=== PATIENT | female | born 1935 | race Caucasian/White ===

== ENCOUNTER → 2018-03-20 14:46 | Outpatient (CLI) | payer MEDICARE, SELFPAY ==
[2018-03-20 16:24] LABS: Absolute Lymphocyte Count 1.73 X10^3/ul (0.83-4.51); Absolute Neutrophil Count 5.5 X10^3/uL (2.0-7.7); Basophil# 0.02 X10^3/uL; Basophil% 0.2 % (0-1); Eosinophil# 0.23 X10^3/uL; Eosinophils% 2.8 % (0-5); Hematocrit 38.4 % (37-47); Lymphocyte # 1.73 X10^3/ul (4.0); Lymphocyte % 21.3 % (19-41); Mean Corp Hgb Conc 31.3 g/gl (32-36); Mean Corpuscular Hgb 29.3 pg (27.0-32.0); Mean Corpuscular Volume 93.7 fL (81-99); Mean Platelet Vol. 9.5 fl (6.2-12.0); Monocyte% 8.6 % (0-10); Neutrophil # 5.45 X10^3/uL (2.7-7.7); Platelet Count 311 K/mm3 (150-450); RBC Distribution Width SD 47.9 fl (35.1-43.9); White Blood Count 8.1 K/mm3 (4.4-11.0)
[2018-03-20 16:27] LABS: POSITIVE COUNT NO; POSITIVE DIFFERENTIAL NO; POSITIVE MORPHOLOGY NO
[2018-03-20 16:42] LABS: Erythrocyte Sedimentation Rate 32 mm/hr (0-30)
[2018-03-20 16:44] LABS: ALB/GLOB Ratio 0.9 RATIO (0.9-2.4); AST(SGOT) 13 U/L (15-37); Alanine Aminotransfer ALT/SGPT 15 U/L (13-56); Albumin, Serum 3.6 g/dL (3.2-5.0); Alkaline Phosphatase 92 U/L (45-117); Anion Gap 9 (5-15); BUN 17 mg/dL (7-18); BUN/Creat Ratio 19.9 RATIO (10-20); CRP 5.86 mg/L (0.0-3.0); Calcium,Total 9.6 mg/dL (8.5-10.1); Chloride 104 mmol/L (98-107); Creatinine, Serum 0.85 mg/dL (0.55-1.02); EST Glomerular Filtration Rate 68 mL/min (>60); Est Glom Filt Rate - Afr Amer 82 mL/min (>60); Globulin 4.2 g/dL (2.2-4.2); Glucose 86 mg/dL (74-106); Potassium 3.9 mmol/L (3.5-5.1); Protein, Total 7.8 g/dL (6.4-8.2); Rheumatoid Factor < 10.0 IU/mL (<15); Sodium Level 142 mmol/L (136-145)
[2018-03-24 16:55] LABS: CCP IgG Antibodies 5 units (0-19); HEPATITIS B SURFACE AG Negative (Negative); Hep B Surface Antibodies Non Reactive (.); Hep C Antibodies 0.1 s/co ratio (0.0-0.9)
[2018-03-25 16:45] LABS: ANTINUCLEAR ANTIBODIES DIRECT Negative (Negative)
--- OUTSIDE RECORDS SUMMARY | 2018-05-25 05:06 | XMS RPT_ITS ---
:1935 Author Organization OHIP Care Team Providers Name Role Phone YONNY MOROCHOANDA Jaye (SENIOR SYSTEMS ADMINISTRATOR) Referring Unavailable CORNIELLO, AYANNA L (SENIOR SYSTEMS ADMINISTRATOR) Attending Unavailable CORNIELLO, AYANNA L (SENIOR SYSTEMS ADMINISTRATOR) Referring Unavailable CORNIELLO, AYANNA L (SENIOR SYSTEMS ADMINISTRATOR) Referring Unavailable THORPELUBNA (ASSEMBLY ADJUSTER) Attending Unavailable THORPE, LUBNA (ASSEMBLY ADJUSTER) Referring Unavailable CORNIELLO, AYANNA L (SENIOR SYSTEMS ADMINISTRATOR) Referring Unavailable CORNIELLO, AYANNA L (SENIOR SYSTEMS ADMINISTRATOR) Attending Unavailable CORNIELLO, AYANNA L (SENIOR SYSTEMS ADMINISTRATOR) Referring Unavailable CORNIELLO, AYANNA L (SENIOR SYSTEMS ADMINISTRATOR) Referring Unavailable CORNIELLO, AYANNA L (SENIOR SYSTEMS ADMINISTRATOR) Referring Unavailable CORNIELLO, AYANNA L (SENIOR SYSTEMS ADMINISTRATOR) Referring Unavailable CORNIELLO, AYANNA L (SENIOR SYSTEMS ADMINISTRATOR) Referring Unavailable CORNIELLO, AYANNA L (SENIOR SYSTEMS ADMINISTRATOR) Referring Unavailable CORNIELLO, AYANNA L (SENIOR SYSTEMS ADMINISTRATOR) Attending Unavailable Vellankimmy, Samara Attending Unavailable Vellankimmy, Samara Referring Unavailable Corniello, Ayanna ASSEMBLY ADJUSTER-C Primary Care Unavailable PROBLEMS PROBLEMS DATE TYPE CONDITION / CODE ATTENDING STATUS SOURCE 03/20/2018 Unknown M06.4 - Inflammatory Vellanki, Active Brenda polyarthropathy / [facility] M06.4(ICD-10) Hospital Repository 03/20/2018 Unknown M15.9 - Vellanki, 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, [facility] unspecified / Hospital M15.9(ICD-10) Repository 03/20/2018 Unknown 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, 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 / Q66.7(ICD-10) [facility] Hospital Repository 03/20/2018 Unknown 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, 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 / Hospital D69.3(ICD-10) Repository 03/20/2018 Unknown M81.0 - Age-related Vellanki, Active [place] osteoporosis without [facility] current pathological Hospital fracture / Repository M81.0(ICD-10) 03/20/2018 Unknown H40.9 - Unspecified Vellanki, Active [place] glaucoma / [facility] H40.9(ICD-10) Hospital Repository 12/30/2017 Active Unspecified NA Active [facility] osteoarthritis, [facility] unspecified site / [facility] M19.90(ICD-10) Repository 12/24/2017 Active Encounter for NA Active [facility] screening mammogram [facility] for malignant neoplasm [facility] of breast / Repository Z12.31(ICD-10) 12/11/2017 Active Other specified NA Active [facility] disorders of bone [facility] density and structure, [facility] unspecified site / Repository M85.80(ICD-10) 12/11/2017 Active Unspecified abnormal NA Active [facility] finding in specimens [facility] from other organs, [place] systems and tissues / Repository R89.9(ICD-10) 12/09/2017 Active Myalgia, unspecified NA Active [facility] site / M79.10(ICD-10) [facility] Repository 12/14/2014 Active Hyperlipidemia, NA Active [facility] unspecified / [facility] E78.5(ICD-10) [facility] Rep[facility] 06/10/2013 Active Immune NA Active [facility] thrombocytopenic [facility] purpura / [facility] D69.3(ICD-10) Repository 06/04/2017 Active Diarrhea, unspecified NA Active [facility] / R19.7(ICD-10) [facility] Repository 05/30/2017 Active Pure NA Active [facility] hypercholesterolemia, [facility] unspecified / [facility] E78.00(ICD-10) Repository 05/30/2017 Active Other nursing home NA Active [facility] (current) drug therapy [facility] / Z79.899(ICD-10) [facility] Repository PROCEDURES PROCEDURES No Procedure Records FoundRESULTS RESULTS CBC W/DIFF, AUTOMATED Collected: 03/20/2018 Status: F Source: [place] 2:56 PM [facility], [facility] HOSPITAL REPOSITORY TYPE CODE TESTS RESULT OUT OF RANGE REFERENCE UNITS LAB L100.1000 4.4-11.0 K/mm3 Normal WBC 8.1 LAB L100.1200 4.2-5.4 M/mm3 Low RBC 4.10 LAB L100.1300 12.0-15.0 g/dl Normal HGB 12.0 LAB L100.1400 37-47 % Normal HCT 38.4 LAB L100.1500 81-99 fL Normal MCV 93.7 LAB L100.1600 27.0-32.0 pg Normal MCH 29.3 LAB L100.1700 32-36 g/gl Low MCHC 31.3 LAB L100.1810 11.6-14.6 % Normal RDW CV 14.0 LAB L100.1820 35.1-43.9 fl High RDW SD 47.9 LAB L100.1900 150-450 K/mm3 Normal PLT 311 LAB L100.2000 6.2-12.0 fl Normal MPV 9.5 LAB L100.2100 47-70 % Normal NEUT% 67.0 LAB L100.2200 19-41 % Normal LY% 21.3 LAB L100.2300 0-10 % Normal MONO% 8.6 LAB L100.2400 0-5 % Normal EO% 2.8 LAB L100.2500 0-1 % Normal BASO% 0.2 LAB L100.2550 0.0-0.9 % Normal IM GRAN % 0.100 Result Comment: IG% - Immature Granulocytes (promyelocytes, myelocytes and metamyelocytes) > 1% indicates that a LEFT SHIFT is Present. LAB L100.2620 2.0-7.7 X10 3/uL Normal Absolute Neut 5.5 LAB L100.2720 0.83-4.51 X10 3/ul Normal Absolute Lymph 1.73 Performed By: #### L100.0100, L101.9900 #### [facility] [address] [place], [place], [id number] ERYTHROCYTE SED RATE Collected: 03/20/2018 Status: F Source: [place] 2:56 PM [facility] REPOSITORY TYPE CODE TESTS RESULT OUT OF RANGE REFERENCE UNITS LAB L102.0000 0-30 mm/hr High SED RATE 32 Performed By: #### L100.0100, L101.9900 #### [facility] [address] [place], [place], [address] COMPREHENSIVE METABOLIC Collected: 03/20/2018 Status: F Source: [place] 2:56 PM [facility] REPOSITORY TYPE CODE TESTS RESULT OUT OF RANGE REFERENCE UNITS LAB L501.0100 74-106 mg/dL Normal GLU 86 Result Comment: Please note revised GLUCOSE reference range effective 2017. LAB L501.1000 7-18 mg/dL Normal BUN 17 LAB L501.1100 0.55-1.02 mg/dL Normal CREAT,SERUM 0.85 Result Comment: The validity of the calculated GFR AND GFRAA in patients over 70 years has not been determined. Clinical correlation is essential. LAB L501.1110 >60 mL/min Normal EST GFR 68 Result Comment: Non- GFR Calc LAB L501.1115 >60 mL/min Normal EST GFR - AA 82 Result Comment: GFR Calc LAB L501.1300 10-20 RATIO Normal BUN/CRE 19.9 LAB L501.1500 6.4-8.2 g/dL T Normal PROT 7.8 LAB L501.1800 3.2-5.0 g/dL Normal ALB 3.6 LAB L501.1950 2.2-4.2 g/dL Normal GLOB 4.2 LAB L501.2000 0.9-2.4 RATIO Normal A/G 0.9 LAB L501.2200 8.5-10.1 mg/dL CA Normal 9.6 LAB L501.4100 15-37 U/L Low AST 13 LAB L501.4305 45-117 U/L Normal ALK P 92 LAB L501.4405 13-56 U/L Normal ALT 15 LAB L501.4600 0.20-1.00 mg/dL T Normal BILI 0.50 LAB L501.5300 136-145 mmol/L NA Normal 142 LAB L501.5600 3.5-5.1 mmol/L K Normal 3.9 LAB L501.5900 98-107 mmol/L CL Normal 104 LAB L501.6100 21.0-32.0 mmol/L Normal CO2 29.0 LAB L501.6200 5-15 Normal GAP 9 Performed By: #### L500.4050, L501.6710, L505.7010 #### [facility] [place], [address] CRP Collected: 03/20/2018 Status: F Source: [place] 2:56 PM [facility] REPOSITORY TYPE CODE TESTS RESULT OUT OF RANGE REFERENCE UNITS LAB L501.6710 0.0-3.0 mg/L High 5.86 C-REACTIVE PROT Result Comment: C-Reactive Protein (CRP) provides useful information for the diagnosis, therapy and monitoring of inflammatory processes and associated diseases. For the evaluation of Relative Risk for Cardiovascular Disease, a High Sensitivity CRP (HSCRP) should be ordered. Performed By: #### L500.4050, L501.6710, L505.7010 #### [facility] [address] [facility] [place], [place], [address] RHEUMATOID FACTOR Collected: 03/20/2018 Status: F Source: [place] 2:56 PM [facility] REPOSITORY TYPE CODE TESTS RESULT OUT OF RANGE REFERENCE UNITS LAB L505.7010 <15 IU/mL Normal RHEUMATOID FAC < 10.0 Performed By: #### L500.4050, L501.6710, L505.7010 #### [facility]. [facility] [id number] HEPATITIS B SURFACE Collected: 03/20/2018 Status: F Source: [place] 2:56 PM [facility] REPOSITORY TYPE CODE TESTS RESULT OUT OF RANGE REFERENCE UNITS LAB L3100.0400 Negative Normal HB Negative SURF AG Result Comment: Performed at: [facility] [id number] Woodenware Assembler: Elder Kang PhD, Phone: [phone] Performed at: [facility] [id number] Woodenware Assembler: Tanya Malhotra MD, Phone: [phone] Performed By: #### L3100.0390, L3100.0528, L3100.0625, L4600.0100 #### [facility] (refer to report for specific site) refer to report for address and phone number HEP B SURFACE Collected: 03/20/2018 Status: F Source: [place] 2:56 PM [facility] REPOSITORY TYPE CODE TESTS RESULT OUT OF RANGE REFERENCE UNITS LAB L3100.0528 . Normal Hep B Non Reactive Yassine AB Result Comment: Non Reactive: Inconsistent with immunity, less than 10 mIU/mL Reactive: Consistent with immunity, greater than 9.9 mIU/mL Performed By: #### L3100.0390, L3100.0528, L3100.0625, L4600.0100 #### [facility] (refer to report for specific site) refer to report for address and phone number HEPATITIS C ANTIBODIES Collected: 03/20/2018 Status: F Source: [place] 2:56 PM [facility] REPOSITORY TYPE CODE TESTS RESULT OUT OF RANGE REFERENCE UNITS LAB L3100.0650 0.0-0.9 s/co ratio Normal HEP C AB 0.1 Result Comment: Negative: < 0.8 Indeterminate: 0.8 - 0.9 Positive: > 0.9 The CDC recommends that a positive HCV antibody result be followed up with a HCV Nucleic Acid Amplification test (628691). Performed By: #### L3100.0390, L3100.0528, L3100.0625, L4600.0100 #### [facility] (refer to report for specific site) refer to report for address and phone number CCP IGG ANTIBODIES Collected: 03/20/2018 Status: F Source: [place] 2:56 PM [facility] REPOSITORY TYPE CODE TESTS RESULT OUT OF RANGE REFERENCE UNITS LAB L4600.0100 0-19 units Normal ANTI-CCP 5 [id number] Result Comment: Negative <20 Weak positive 20 - 39 Moderate positive 40 - 59 Strong positive >59 Performed By: #### L3100.0390, L3100.0528, L3100.0625, L4600.0100 #### [facility] (refer to report for specific site) refer to report for address and phone number ANTINUCLEAR ANTIBODIES Collected: 03/20/2018 Status: F Source: [place] DIRECT 2:56 PM [facility] REPOSITORY TYPE CODE TESTS RESULT OUT OF RANGE REFERENCE UNITS LAB L3100.5475 Negative Normal Negative WON-DIRECT Result Comment: Performed at: - [facility] [id number] Woodenware Assembler: Elder Kang PhD, Phone: [phone] Performed By: #### L3100.5475 #### [facility] (refer to report for specific site) refer to report for address and phone number PROGRESS Observed: 02/09/2018 Status: COMPLETED Source: [place] 3:47 PM [facility] REPOSITORY HNO ID: [id number] Author: Ayanna Cabral) Bailee Service: (none) Author Type: Nurse Practitioner Type: Progress Notes Filed: 02/09/2018 4:25 PM Note Text: HPI/CC: Guicho Mohamud Nella is a 82 year old female who presents for follow up to review medications. Mobic not helpful. Still with muscle and joint pains. Pain is mostly UE. Stiff in the mornings but relaxes with warm water. Had to stop silver sneakers d/t pain. Seeing chiropractor for OMT with intermediate relief. Also using biofreeze which is helpful. ROS as above, otherwise non-contributory. Reviewed PMHx, PSHx, social Hx, medications and allergies. PHYSICAL EXAMINATION: BP 126/60 Pulse 92 Resp 16 Wt 50.8 kg (112 lb) BMI 18.35 kg/m? General appearance: Well appearing, alert, in no acute distress, well-hydrated, well nourished. Skin: Skin color, texture, turgor normal, no suspicious rashes or lesions ASSESSMENT/PLAN: 1. Myalgia - ICD9: 729.1, ICD10: M79.10 (primary diagnosis) 2. Arthralgia, unspecified joint - ICD9: 719.40, ICD10: M25.50 - CONSULT TO RHEUM/IMMUN DISEASE - COMP METABOLIC PANEL - LIPID PANEL BASIC - CBC + DIFF 3. Hyperlipidemia, unspecified hyperlipidemia type - ICD9: 272.4, ICD10: E78.5 - good control - Continue current therapy. Off statin for now - LIPID PANEL BASIC - f/u in 4 months with fasting labs prior Ayanna Morocho APRN.NANDA DANIEL Observed: 02/09/2018 Status: COMPLETED Source: [place] 3:40 PM [facility] REPOSITORY Office Visit (FAMPWS) GUICHO CARMEN ([id number]) 1935 F CHT Date Time Provider Department 02/09/18 3:40 PM AYANNA MOROCHO ([place]NDA) JOSE A During your visit today, we recorded the following information about you: Pulse Respiration Blood pressure Weight 92/minute 16/minute 126/60 50.8 kg Ayanna Morocho APRN.CNP 02/09/2018 4:25 PM Signed HPI/CC: Guicho Carmen is a 82 year old female who presents for follow up to review medications. Mobic not helpful. Still with muscle and joint pains. Pain is mostly UE. Stiff in the mornings but relaxes with warm water. Had to stop silver sneakers d/t pain. Seeing chiropractor for OMT with intermediate relief. Also using biofreeze which is helpful. ROS as above, otherwise non-contributory. Reviewed PMHx, PSHx, social Hx, medications and allergies. PHYSICAL EXAMINATION: BP 126/60 Pulse 92 Resp 16 Wt 50.8 kg (112 lb) BMI 18.35 kg/m? General appearance: Well appearing, alert, in no acute distress, well-hydrated, well nourished. Skin: Skin color, texture, turgor normal, no suspicious rashes or lesions ASSESSMENT/PLAN: 1. Myalgia - ICD9: 729.1, ICD10: M79.10 (primary diagnosis) 2. Arthralgia, unspecified joint - ICD9: 719.40, ICD10: M25.50 - CONSULT TO RHEUM/IMMUN DISEASE - COMP METABOLIC PANEL - LIPID PANEL BASIC - CBC + DIFF 3. Hyperlipidemia, unspecified hyperlipidemia type - ICD9: 272.4, ICD10: E78.5 - good control - Continue current therapy. Off statin for now - LIPID PANEL BASIC - f/u in 4 months with fasting labs prior Ayanna Morocho APRN.CNP Referring Provider: SELF [200] Allergies As of Date: 02/09/2018 Noted Allergy Reaction ASA (SALICYLATES) 01/08/2005 14 - Other: See Comments Comments: Hx of low plateletes IBUPROFEN 01/08/2005 4 - Hives PENICILLINS 01/08/2005 Comments: passed out Date Reviewed: 12/09/2017 Reviewed by: Simone Trevino LPN - Fully Assessed Reason for Visit: Recheck [92] Cmt: follow up to review medications Primary Visit Diagnosis:Myalgia [M79.10] Other Visit Diagnoses:Arthralgia, unspecified joint [M25.50] Hyperlipidemia, unspecified hyperlipidemia type [E78.5] Order(s):CONSULT TO RHEUM/IMMUN DISEASE [9039] Order #: [id number]: 1 COMP METABOLIC PANEL [SQCMP] Order #: [id number] FUTURE LIPID PANEL BASIC [SQLIPB] Order #: [id number] FUTURE CBC + DIFF [SQCBCDIF] Order #: [id number] FUTURE Prescriptions as of 02/09/2018 Sig: MELOXICAM 7.5 MG TABLET Take 2 tablets by mouth once * ALENDRONATE 35 MG TABLET Take 1 tablet by mouth once e* FLUTICASONE 50 MCG/ACTUATION * Use 2 Sprays in each nostril * LORATADINE 10 MG TABLET Take 1 tablet by mouth once d* MAGNESIUM 200 MG TABLET Take 1 tablet by mouth once d* CALCIUM CARB-ERGOCALCIFEROL (* Take 1 tablet by mouth once d* LUMIGAN 0.03 % EYE DROPS one drop each eye nightly THERAPEUTIC MULTIVITAMIN TABL* Take one(1) tablet daily. 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] INT HEMORRHOID W/O COMPL [K64.8] DYSMETABOLIC SYNDROME X [E88.81] INVALID FOR* Seborrheic Keratosis [L82.1] INVALID FOR* Surgical Scar of Skin of Nose from Moh's Surger*INVALID FOR* H/O BCC: Desmoplastic Trichoepithelioma type: n*INVALID FOR* Actinic Damage///Sun-Damaged Skin [L57.8] INVALID FOR* Solar Lentigo [L81.4] INVALID FOR* Amaral Angioma///Capillary Angioma [I78.1] INVALID FOR* Telangiectasia [I78.1] INVALID FOR* Rosacea [L71.9] INVALID FOR* Actinic Keratosis (Premalignant AK) [L57.0] INVALID FOR* Irritated//Inflamed Seborrheic Keratosis [L82.0]INVALID FOR* Sebaceous hyperplasia [L73.8] INVALID FOR* Actinic skin damage [L57.8] INVALID FOR* Postinflammatory skin changes [R23.4] INVALID FOR* Milial cysts [L72.0] INVALID FOR* Solar elastosis [L57.8] INVALID FOR* Sebaceous hyperplasia of face [L73.8] INVALID FOR* ITP (idiopathic thrombocytopenic purpura) [D69.* 06/10/2013 More... 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 Lactose intolerance [E73.9] INVALID FOR* Medications Discontinued During This Encounter simvastatin (ZOCOR) 20 mg tablet 90 t* 3 03/05/2017 02/09/2018 Route: ORAL Sig: Take 0.5-1 tablets by mouth once daily. as directed based on labs Disc: Reason for discontinue is not on file. Encounter Status:Closed by AYANNA MOROCHO CNP on 02/09/18 CBC AND DIFFERENTIAL Collected: 12/30/2017 Status: F Source: [place] 2:11 PM [facility] REPOS[facility] TYPE CODE TESTS RESULT OUT OF REFERENCE UNITS RANGE LAB WBC 3.70-11.00 k/uL WBC 9.33 LAB RBC 3.90-5.20 m/uL RBC 4.13 LAB HGB 11.5-15.5 g/dL Hemoglobin 12.5 LAB HCT 36.0-46.0 % Hematocrit 39.9 LAB MCV 80.0-100.0 fL MCV 96.6 LAB MCH 26.0-34.0 pG MCH 30.3 LAB MCHC 30.5-36.0 g/dL MCHC 31.3 LAB RDWCV 11.5-15.0 % RDW-CV 12.5 LAB PLTCT 150-400 k/uL Platelet Count 337 LAB MPV 9.0-12.7 fL MPV 9.8 LAB ANEUT % Neut% 75.4 LAB AANEUT 1.45-7.50 k/uL Abs Neut 7.04 LAB ALYMP % Lymph% 15.0 LAB AALYMP 1.00-4.00 k/uL Abs Lymph 1.40 LAB AMONO % Isabella% 8.3 LAB AAMONO <0.87 k/uL Abs Isabella 0.77 LAB AEOS % Eosin% 1.0 LAB AAEOS <0.46 k/uL Abs Eosin 0.09 LAB ABASO % Baso% 0.3 LAB AABASO <0.11 k/uL Abs Baso 0.03 LAB AUNRBC 0 /100 WBC NRBCs 0.0 LAB ABNRBC <0.01 k/uL Absolute nRBC <0.01 LAB DTYP DTYPE Auto Diff Performed By: #### CBCDIF #### [facility] [address] [place], [place] [address] CNCO Observed: 12/24/2017 Status: COMPLETED Source: [place] 1:36 PM [facility] REPOSITORY HNO ID: [id number] Author: Mammography Coordinator Service: (none) Author Type: Physician Type: Letter Filed: 12/25/2017 11:32 PM Note Text: December 24, 2017 PID: [id number] Guicho Carmen [address] [place] [address] Dear Ms. Carmen, We are pleased to inform you that the results of your recent breast imaging exam on 12/24/2017 are normal. Early detection of cancer is very important. We also understand recommendations regarding breast cancer screening are controversial. Please discuss with your primary care provider which strategy is best for you and whether a mammogram is right for you. Your imaging studies and report will be kept on file at [facility] as part of your permanent medical record and are available for your continuing care. Thank you for allowing us to help in meeting your health care needs. Sincerely, Dr. Cristina Interpreting Radiologist [facility] (Normal over 40) [facility] SCREENING Observed: 12/24/2017 Status: F Source: [place] 12:00 PM [facility] REPOSITORY * * *Final Report* * * DATE OF EXAM: Dec 24 2017 12:00PM WO [id number] - [facility] SCREENING / PROCEDURE REASON: Encounter for screening mammogram for breast cancer * * * * Physician Interpretation * * * * RESULT: #[id number] - [facility] SCREENING BILATERAL DIGITAL SCREENING MAMMOGRAM WITH CAD: 12/24/2017 HISTORY: Encounter For Screening Mammogram For Breast Cancer /patient reports NO breast symptoms /priors available for comparison. RESULT: TECHNIQUE: The study was acquired using full field digital technology and interpreted from soft copy. Current study was also evaluated with a Computer Aided Detection (CAD). Comparison is made to exams dated: 09/11/2016 mammogram, 07/03/2015 mammogram, 06/23/2012 mammogram, 06/24/2013 mammogram, and 06/30/2014 mammogram - [facility]. There are scattered fibroglandular elements in both breasts. No significant masses, calcifications, or other findings are seen in either breast. There has been no significant interval change. IMPRESSION: NEGATIVE There is no mammographic evidence of malignancy. A 1 year screening mammogram is recommended. Steve Cristina M.D. pt/heather:12/24/2017 13:36:31 Drug Safety Associate: Kiki RAINES)(Karli), [facility] letter sent: Normal over 40 Mammogram BI-RADS: 1 Negative Multiple national specialty organizations have released breast cancer screening guidelines for women at average risk for developing breast cancer - guidelines that are based on both evidence and opinion, yet differ on when to start and how often to screen for breast cancer. With representation from Breast Imaging, Internal Medicine, Women's Health, Family Medicine, and Medical/Surgical Oncology, the [facility] has carefully reviewed the data and reached the following consensus: 1) All women should engage in shared decision-making with their providers to decide when to start and how often to screen; 2) All women should have the opportunity to start screening mammography at age 40; 3) For women ages 45-55, we recommend annual screening mammograms; 4) For women ages 55 and over, we support both the transition from an annual to a biennial interval if this aligns more with patient's values and preferences, or continuation with annual screening; 5) All women should discuss with their providers when to stop screening mammograms. Travel Coordinator: Heather Transcribe Date/Time: Dec 24 2017 11:32A Dictated by: STEVE CRISTINA MD This examination was interpreted and the report reviewed and electronically signed by: STEVE CRISTINA MD on Dec 24 2017 1:36PM EST [id number] Observed: 12/24/2017 Status: COMPLETED Source: [place] 11:32 AM [facility] REPOSITORY HNO ID: [id number] Author: Lubna Luna Service: (none) Author Type: (none) Type: Progress Notes Filed: 12/24/2017 12:04 PM Note Text: Radiology Service Progress Note PATIENT NAME: Guicho Carmen DATE OF SERVICE: December 24, 2017 TIME: 11:32 AM PATIENT IDENTITY VERIFICATION COMPLETED USING TWO (2) METHODS: Patient confirmed name verbally and Date of . PATIENT GENDER DATA: Female. status: : No status: NO. PATIENT RELEVANT IMPLANT DATA REVIEWED: Not Applicable RADIOLOGY DEPARTMENT: Women's Health melody scr mammogram PERIPHERAL IV DATA: Not applicable SIGNED BY: Lubna Luna December 24, 2017 11:32 AM BD DXA - AXIAL Observed: 12/15/2017 Status: F Source: [place] 2:48 PM [facility] REPOSITORY * * *Final Report* * * DATE OF EXAM: Dec 15 2017 2:48PM WR [id number] - BD DXA - AXIAL SKELETON / PROCEDURE REASON: Osteopenia, unspecified location * * * * Physician Interpretation * * * * PROCEDURE: BD DXA - AXIAL SKELETON INDICATION: Osteopenia, unspecified location TECHNIQUE: Low dose AP spine and hip images COMPARISON: LUMBAR SPINE: The bone mineral density from L1 through L4 is 0.798 grams per square centimeter which yields a T-score of -2.3. . LEFT HIP: The bone mineral density of the total region of the hip is 0.647 grams per square centimeter which yields a T-score of -2.4. . LEFT FEMORAL NECK: The bone mineral density of the femoral neck is 0.43 grams per square centimeter which yields a T-score of -3.3. . RIGHT HIP: The bone mineral density of the total region of the hip is 0.690 grams per square centimeter which yields a T-score of -2.1. . RIGHT FEMORAL NECK: The bone mineral density of the femoral neck is 0.521 grams per square centimeter which yields a T-score of -3.0. . 10-year Fracture Risk (FRAX): Major osteoporotic fracture risk 22% Hip fracture risk 9.8% IMPRESSION: Osteoporosis in both hips and severe osteopenia in the lumbar spine. [facility]. CLASSIFICATION OF BONE MASS CLASSIFICATION T-SCORE Normal Greater than -1 Low Bone Mass Between -1 and -2.5 (Osteopenia) Osteoporosis Less than or equal to -2.5 Travel Coordinator: MATT Transcribe Date/Time: Dec 15 2017 3:26P Dictated by : DONAVAN LI MD This examination was interpreted and the report reviewed and electronically signed by: DONAVAN LI MD on Dec 15 2017 3:27PM EST [id number] Observed: 12/15/2017 Status: COMPLETED Source: [place] 2:25 PM [facility] REPOSITORY HNO ID: [id number] Author: Marilia Lion Rt Service: (none) Author Type: (none) Type: Progress Notes Filed: 12/15/2017 2:48 PM Note Text: Guicho Carmen December 15, 2017 [id number] Double identification: Patient identified by name and Bone Density Completed. Marilia Lion Rt patient told of radiation jk 2:30pm not CNPN Observed: 12/15/2017 Status: COMPLETED Source: [place] 12:00 AM [facility] REPOSITORY Telephone (FAMWS) GUICHO CARMEN ([id number]) 1935 F [facility] Date Time Provider Department 12/15/17 AYANNA MOROCHO ([facility]) [facility] During your visit today, we recorded the following information about you: Ayanna Morocho APRN.CNP 12/15/2017 3:47 PM Signed Labs show increased inflammatory markers. I recommend rechecking this in 3-4 months to re check this. Her bone density shows Osteoporosis in both hips and severe osteopenia in the lumbar spine. This significantly increases her risk of fracture. I recommend starting on a medication to help bone health such as a bisphosphonate. KRZYSZTOF Murry LPN 12/15/2017 4:02 PM Signed TC to pt, notified of provider instructions. She is checking with insurance to see what medication will be covered. Simone Trevino LPN Daniela Harpmary DENNIS 12/15/2017 4:19 PM Signed Patient calling back and her insurance will cover medication depends on which type brand name is 40 dollars and generic is 10 dollars? Patient uses [facility] for pharmacy, and would like to know which does Ayanna prefer her to go on? Please advise Letitia Lopez RN, RN 12/16/2017 11:47 AM Signed [facility] calls, stating pt is there to pear picker medication but nothing has been sent. Pt does not know name of medication. Please see below. Anabel Fierro RN 12/16/2017 12:10 PM Signed Patient thinks that generic fosamax is covered and asking for Rx sent for this to [facility]? She is also asking what she can take for her arthritis pain, she currently takes a lot of Tylenol and this is not relieving her pain. Please send arthritis pain medication Rx and notify patient when Rx sent. Please review and advise. HERB Lew APRN.SENIOR SYSTEMS ADMINISTRATOR 12/16/2017 2:58 PM Signed Fosamax ordered, please fax. recomeend I suggest 1200-1500mg of Calcium carbonate into 2 doses daily as well as 1000 units of Vitamin D3 daily. Weight bearing exercise, if not already doing, and f/u exam in 2 years for bone density. Simone Trevino LPN 12/16/2017 3:34 PM Signed Do you recommend anything in addition to Tylenol for pt c/o arthritis pain? Simone Morocho APRN.SENIOR SYSTEMS ADMINISTRATOR 12/16/2017 3:47 PM Signed She is allergic to ibuprofen. Has she ever tolerated Naproxen or Mobic? Simone Trevino LPN 12/16/2017 3:57 PM Signed TC to pt, notified of provider instructions. She has Oscal 500mg at home that she will use. She also states she is unable to take Ibuprofen because she can not have anything with ASA d/t it knocked my platelets down so they told me not to take anything with ASA in it so she is unsure if she has tried naproxen or mobic. She is also asking if she should restart her cholesterol medication? Simone Morocho APRN.CNP 12/17/2017 12:11 PM Signed Recommend a trial of low dose Mobic and recheck CBC in 2-3 weeks. Ayanna Morocho APRN.NANDA Lazaroley Magda 12/17/2017 3:11 PM Signed Patient notified of results, verbalizes understanding of instructions. Britany Man Allergies As of Date: 12/15/2017 Noted Allergy Reaction ASA (SALICYLATES) 01/08/2005 14 - Other: See Comments Comments: Hx of low plateletes IBUPROFEN 01/08/2005 4 - Hives PENICILLINS 01/08/2005 Comments: passed out Date Reviewed: 12/09/2017 Reviewed by: Simone Trevino LPN - Fully Assessed Reason for Visit: Medication Request [138] Results [95] Primary Visit Diagnosis:Osteoporosis, unspecified osteoporosis type, unspecified pathological fracture presence [M81.0] Other Visit Diagnoses:Arthritis [M19.90] Chronic ITP (idiopathic thrombocytopenia) ([facility]) [D69.3] Order(s):alendronate (FOSAMAX) 35 mg tabletTake 1 tablet by mouth once each week. Take on an empty stomach first thing in the morning with at least 8 oz of water. After taking do not have food, drink, medications, or supplements for at least one half- hourDisp: 51 tabletRfl: 0 CBC + DIFF [SQCBCDIF] Order #: [id number] FUTURE meloxicam (MOBIC) 7.5 mg tabletTake 1 tablet by mouth once daily. for pain. Take with food.Disp: 30 tabletRfl: 1 Prescriptions as of 12/15/2017 Sig: MELOXICAM 7.5 MG TABLET Take 1 tablet by mouth once d* ALENDRONATE 35 MG TABLET Take 1 tablet by mouth once e* FLUTICASONE 50 MCG/ACTUATION * Use 2 Sprays in each nostril * LORATADINE 10 MG TABLET Take 1 tablet by mouth once d* SIMVASTATIN 20 MG TABLET Take 0.5-1 tablets by mouth o* MAGNESIUM 200 MG TABLET Take 1 tablet by mouth once d* CALCIUM CARB-ERGOCALCIFEROL (* Take 1 tablet by mouth once d* LUMIGAN 0.03 % EYE DROPS one drop each eye nightly THERAPEUTIC MULTIVITAMIN TABL* Take one(1) tablet daily. Problem List As Of Date 12/15/2017 Noted Resolved GLAUCOMA NOS [H40.9] Hyperlipidemia [E78.5] FAMILY HX GI MALIGNANCY [Z80.0] INVALID FOR* BENIGN NEOPLASM LG BOWEL [D12.6] DIVERTICULOSIS OF COLON W/O BLEED [K57.30] INT HEMORRHOID W/O COMPL [K64.8] DYSMETABOLIC SYNDROME X [E88.81] INVALID FOR* Seborrheic Keratosis [L82.1] INVALID FOR* Surgical Scar of Skin of Nose from Moh's Surger*INVALID FOR* H/O BCC: Desmoplastic Trichoepithelioma type: n*INVALID FOR* Actinic Damage///Sun-Damaged Skin [L57.8] INVALID FOR* Solar Lentigo [L81.4] INVALID FOR* Amaral Angioma///Capillary Angioma [I78.1] INVALID FOR* Telangiectasia [I78.1] INVALID FOR* Rosacea [L71.9] INVALID FOR* Actinic Keratosis (Premalignant AK) [L57.0] INVALID FOR* Irritated//Inflamed Seborrheic Keratosis [L82.0]INVALID FOR* Sebaceous hyperplasia [L73.8] INVALID FOR* Actinic skin damage [L57.8] INVALID FOR* Postinflammatory skin changes [R23.4] INVALID FOR* Milial cysts [L72.0] INVALID FOR* Solar elastosis [L57.8] INVALID FOR* Sebaceous hyperplasia of face [L73.8] INVALID FOR* ITP (idiopathic thrombocytopenic purpura) [D69.* 06/10/2013 More... 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 Lactose intolerance [E73.9] INVALID FOR* Prescriptions ordered this encounter Disp Refills Start End ALENDRONATE 35 MG TABLET 51 t* 0 12/16/2017 12/16/2018 Class: Print RX Route: ORAL Sig: Take 1 tablet by mouth once each week. Take on an empty stomach first thing in the morning with at least 8 oz of water. After taking do not have food, drink, medications, or supplements for at least one half-hour MELOXICAM 7.5 MG TABLET 30 t* 1 12/17/2017 Route: ORAL Sig: Take 1 tablet by mouth once daily. for pain. Take with food. Encounter Status:Closed by BRITANY MAN on 12/17/17 C-REACTIVE PROTEIN Collected: 12/11/2017 Status: F Source: [place] 11:53 AM [facility] REPOSITORY TYPE CODE TESTS RESULT OUT OF REFERENCE UNITS RANGE LAB CRP <0.9 mg/dL High C-Reactive 1.9 Protein Performed By: #### CRP, RF, WSR, VITD, ANAIFS, CCP #### [facility] [address] [address] RHEUMATOID FACTOR Collected: 12/11/2017 Status: F Source: [place] 11:53 AM [facility] REPOSITORY TYPE CODE TESTS RESULT OUT OF REFERENCE UNITS RANGE LAB RF <16 IU/mL Rheumatoid <10 Factor Performed By: #### CRP, RF, WSR, VITD, ANAIFS, CCP #### [facility] [address] [place] [address] SED RATE WESTERGREN Collected: 12/11/2017 Status: F Source: [place] 11:53 AM [facility] REPOSITORY TYPE CODE TESTS RESULT OUT OF REFERENCE UNITS RANGE LAB WSR 0-20 mm/hr Sed Rate High Westergren 38 Performed By: #### CRP, RF, WSR, VITD, ANAIFS, CCP #### [facility] [address] [address] VITAMIN D 25 HYDROXY Collected: 12/11/2017 Status: F Source: [place] 11:53 AM [facility] REPOSITORY TYPE CODE TESTS RESULT OUT OF REFERENCE UNITS RANGE LAB VITD 31.0-80.0 ng/mL Vitamin D 25 39.3 Hydroxy Result Comment: Classification of 25 [place] Vitamin D status: Insufficiency/Moderate Deficiency: < or = 30 ng/mL Sufficiency/Optimal Levels: 31 to 80 ng/mL Toxicity: > 100 ng/mL Test performed by chemiluminescent immunoassay. Performed By: #### CRP, RF, WSR, VITD, ANAIFS, CCP #### [facility] [address] [place], [place] [address] WON BY IFA Collected: 12/11/2017 Status: F Source: [place] 11:53 [facility] REPOSITORY TYPE CODE TESTS RESULT OUT OF REFERENCE UNITS RANGE LAB ANASC Negative WON Negative Result Comment: Normal range : negative at <1:80 serum dilution. Approximately 6% of patients with connective tissue diseases with low positive EIA values are negative by IFA. Recommend follow-up with specific antinuclear antibodies if clinically indicated. LAB PRISCA Negative Negative WON Titer Result Comment: Normal range : negative at <1:80 serum dilution. LAB ANAP WON Not applicable Pattern for negative result. Performed By: #### CRP, RF, WSR, VITD, ANAIFS, CCP #### [facility] [address] [place], [place] [address] CCP ANTIBODY, IGG Collected: 12/11/2017 Status: F Source: [place] 11:53 [facility] TYPE CODE TESTS RESULT OUT OF REFERENCE UNITS RANGE LAB CCPABG <20 Units CCP <15 Antibody, IgG Result Comment: < 20 units: Negative 20-39 units: Weak Positive 40-59 units: Moderate Positive > 60 units: Strong Positive The following results were obtained with the [employer] QU[employer]A Lite CCP3 IgG ROGER. Anti-CCP values obtained with different manufacturers' assay methods may not be used interchangeably. The magnitude of the reported IgG levels cannot be correlated to an endpoint titer. Performed By: #### CRP, RF, WSR, VITD, ANAIFS, CCP #### [facility] [address] [place], [place] [address] PROGRESS Observed: 12/09/2017 Status: COMPLETED Source: [place] 11:27 AM [facility] REPOSITORY HNO ID: [id number] Author: Ayanna Cee (Nanda) Bailee Service: (none) Author Type: Nurse Practitioner Type: Progress Notes Filed: 12/09/2017 11:43 AM Note Text: HPI/CC: Guicho Carmen is a 82 year old female who presents for Recheck (6 month follow up). Concerned regarding bilateral UE discomfort especially with extention. Reports extremities feel weak and stiff. Unable to move around like she used to. Left hand is swollen x 1 week, decreased grasp L>R. Denies injury/trauma, fever, chills, new exercises/activities, CP, SOB, dizziness, lightheadedness, numbness or tingling, recent falls, unsteady gait, difficulty talking. Eating and drinking well. ROS as above, otherwise non-contributory. Reviewed PMHx, PSHx, social Hx, medications and allergies. PHYSICAL EXAMINATION: BP 124/64 Pulse 88 Resp 16 Wt 52.2 kg (115 lb) BMI 18.85 kg/m? General appearance: Well appearing, alert, in no acute distress, well-hydrated, well nourished. and Thin Skin: Skin color, texture, turgor normal, no suspicious rashes or lesions Lungs: Lungs clear to auscultation. No wheezing, rhonchi, rales Heart: RRR without murmur, gallop, or rubs. No ectopy Extremities: No deformities, , skin discoloration, clubbing or cyanosis. Good capillary refill. , Edema: Left hand swelling Musculoskeletal: No joint swelling, deformity, or tenderness Peripheral pulses: Normal Neuro: Gait normal. Sensation grossly intact. ASSESSMENT/PLAN: 1. Myalgia - ICD9: 729.1, ICD10: M79.10 (primary diagnosis) - MAGNESIUM BLD - CK CREATINE KINASE - TSH BLD - VITAMIN D 25 HYDROXY - consider PT if above is negative 2. Osteopenia, unspecified location - ICD9: 733.90, ICD10: M85.80 - VITAMIN D 25 HYDROXY - DXA-AXIAL SKELETON Ayanna Morocho APRN.NANDA CNOV Observed: 12/09/2017 Status: COMPLETED Source: [place] 10:40 AM [facility] REPOSITORY Office Visit (FAMPWS) GUICHO CARMEN ([id number]) 1935 F T Date Time Provider Department 12/09/17 10:40 AM AYANNA MOROCHO) FAMPWS During your visit today, we recorded the following information about you: Pulse Respiration Blood pressure Weight 88/minute 16/minute 124/64 52.2 kg Ayanna Morocho APRN.CNP 12/09/2017 11:43 AM Signed HPI/CC: Guicho Carmen is a 82 year old female who presents for Recheck (6 month follow up). Concerned regarding bilateral UE discomfort especially with extention. Reports extremities feel weak and stiff. Unable to move around like she used to. Left hand is swollen x 1 week, decreased grasp L>R. Denies injury/trauma, fever, chills, new exercises/activities, CP, SOB, dizziness, lightheadedness, numbness or tingling, recent falls, unsteady gait, difficulty talking. Eating and drinking well. ROS as above, otherwise non-contributory. Reviewed PMHx, PSHx, social Hx, medications and allergies. PHYSICAL EXAMINATION: BP 124/64 Pulse 88 Resp 16 Wt 52.2 kg (115 lb) BMI 18.85 kg/m? General appearance: Well appearing, alert, in no acute distress, well-hydrated, well nourished. and Thin Skin: Skin color, texture, turgor normal, no suspicious rashes or lesions Lungs: Lungs clear to auscultation. No wheezing, rhonchi, rales Heart: RRR without murmur, gallop, or rubs. No ectopy Extremities: No deformities, , skin discoloration, clubbing or cyanosis. Good capillary refill. , Edema: Left hand swelling Musculoskeletal: No joint swelling, deformity, or tenderness Peripheral pulses: Normal Neuro: Gait normal. Sensation grossly intact. ASSESSMENT/PLAN: 1. Myalgia - ICD9: 729.1, ICD10: M79.10 (primary diagnosis) - MAGNESIUM BLD - CK CREATINE KINASE - TSH BLD - VITAMIN D 25 HYDROXY - consider PT if above is negative 2. Osteopenia, unspecified location - ICD9: 733.90, ICD10: M85.80 - VITAMIN D 25 HYDROXY - DXA-AXIAL SKELETON Ayanna Morocho APRN.CNP Referring Provider: AYANNA MOROCHO (NANDA) [[id number]] Allergies As of Date: 12/09/2017 Noted Allergy Reaction ASA (SALICYLATES) 01/08/2005 14 - Other: See Comments Comments: Hx of low plateletes IBUPROFEN 01/08/2005 4 - Hives PENICILLINS 01/08/2005 Comments: passed out Date Reviewed: 12/09/2017 Reviewed by: Simone Trevino LPN - Fully Assessed Reason for Visit: Recheck [92] Cmt: 6 month follow up Primary Visit Diagnosis:Myalgia [M79.10] Other Visit Diagnosis:Osteopenia, unspecified location [M85.80] Order(s):MAGNESIUM BLD [SQMG1] Order #: [id number] FUTURE CK CREATINE KINASE [SQCK] Order #: [id number] FUTURE TSH BLD [SQTSH] Order #: [id number] FUTURE VITAMIN D 25 HYDROXY [SQVITD] Order #: [id number] FUTURE DXA-AXIAL SKELETON [0391197] Order #: [id number] FUTURE Prescriptions as of 12/09/2017 Sig: CALCIUM CARB-ERGOCALCIFEROL (* Take 1 tablet by mouth once d* LUMIGAN 0.03 % EYE DROPS one drop each eye nightly THERAPEUTIC MULTIVITAMIN TABL* Take one(1) tablet daily. FLUTICASONE 50 MCG/ACTUATION * Use 2 Sprays in each nostril * LORATADINE 10 MG TABLET Take 1 tablet by mouth once d* SIMVASTATIN 20 MG TABLET Take 0.5-1 tablets by mouth o* MAGNESIUM 200 MG TABLET Take 1 tablet by mouth once d* Problem List As Of Date 12/09/2017 Noted Resolved GLAUCOMA NOS [H40.9] Hyperlipidemia [E78.5] FAMILY HX GI MALIGNANCY [Z80.0] INVALID FOR* BENIGN NEOPLASM LG BOWEL [D12.6] DIVERTICULOSIS OF COLON W/O BLEED [K57.30] INT HEMORRHOID W/O COMPL [K64.8] DYSMETABOLIC SYNDROME X [E88.81] INVALID FOR* Seborrheic Keratosis [L82.1] INVALID FOR* Surgical Scar of Skin of Nose from Moh's Surger*INVALID FOR* H/O BCC: Desmoplastic Trichoepithelioma type: n*INVALID FOR* Actinic Damage///Sun-Damaged Skin [L57.8] INVALID FOR* Solar Lentigo [L81.4] INVALID FOR* Amaral Angioma///Capillary Angioma [I78.1] INVALID FOR* Telangiectasia [I78.1] INVALID FOR* Rosacea [L71.9] INVALID FOR* Actinic Keratosis (Premalignant AK) [L57.0] INVALID FOR* Irritated//Inflamed Seborrheic Keratosis [L82.0]INVALID FOR* Sebaceous hyperplasia [L73.8] INVALID FOR* Actinic skin damage [L57.8] INVALID FOR* Postinflammatory skin changes [R23.4] INVALID FOR* Milial cysts [L72.0] INVALID FOR* Solar elastosis [L57.8] INVALID FOR* Sebaceous hyperplasia of face [L73.8] INVALID FOR* ITP (idiopathic thrombocytopenic purpura) [D69.* 06/10/2013 More... 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 Lactose intolerance [E73.9] INVALID FOR* Encounter Status:Closed by AYANNA MOROCHO CNP on 12/09/17 CBC AND DIFFERENTIAL Collected: 12/09/2017 Status: F Source: [place] 9:22 AM [facility] REPOSITORY TYPE CODE TESTS RESULT OUT OF REFERENCE UNITS RANGE LAB WBC 3.70-11.00 k/uL WBC 8.61 LAB RBC 3.90-5.20 m/uL RBC 4.26 LAB HGB 11.5-15.5 g/dL Hemoglobin 12.9 LAB HCT 36.0-46.0 % Hematocrit 40.7 LAB MCV 80.0-100.0 fL MCV 95.5 LAB MCH 26.0-34.0 pG MCH 30.3 LAB MCHC 30.5-36.0 g/dL MCHC 31.7 LAB RDWCV 11.5-15.0 % RDW-CV 12.6 LAB PLTCT 150-400 k/uL Platelet Count 325 LAB MPV 9.0-12.7 fL MPV 9.4 LAB ANEUT % Neut% 70.1 LAB AANEUT 1.45-7.50 k/uL Abs Neut 6.03 LAB ALYMP % Lymph% 19.9 LAB AALYMP 1.00-4.00 k/uL Abs Lymph 1.71 LAB AMONO % Isabella% 7.4 LAB AAMONO <0.87 k/uL Abs Isabella 0.64 LAB AEOS % Eosin% 2.3 LAB AAEOS <0.46 k/uL Abs Eosin 0.20 LAB ABASO % Baso% 0.3 LAB AABASO <0.11 k/uL Abs Baso 0.03 LAB AUNRBC 0 /100 WBC NRBCs 0.0 LAB ABNRBC <0.01 k/uL Absolute nRBC <0.01 LAB DTYP DTYPE Auto Diff Performed By: #### CBCDIF, CMP, LIPB #### [facility] [address] [place], [place] [address] COMP METABOLIC PANEL Collected: 12/09/2017 Status: F Source: [place] 9:22 AM [facility] REPOSITORY TYPE CODE TESTS RESULT OUT OF REFERENCE UNITS RANGE LAB TP 6.3-8.0 g/dL Protein, Total 7.5 LAB ALB 3.9-4.9 g/dL Albumin 4.1 LAB CA 8.5-10.2 mg/dL Calcium, Total 9.9 LAB TBIL 0.2-1.3 mg/dL Bilirubin, Total 0.5 LAB ALKP 34-123 U/L Alkaline Phosphatase 76 LAB AST 13-35 U/L AST 18 LAB GLU 74-99 mg/dL Glucose High 101 Result Comment: The [place] Diabetes Association (ADA) provides guidance for cutoff values for fasting glucose and random glucose. The ADA defines fasting as no caloric intake for at least 8 hours. Fas ting plasma glucose results between 100 to 125 mg/dL indicate increased risk for diabetes (prediabetes). Fasting plasma glucose results greater than or equal to 126 mg/dL meet the criteria for diagnosis of diabetes. In the absence of unequivocal hyperglycemia, results should be confirmed by repeat testing. In a patient with classic symptoms of hyperglycemia or hyperglycemic crisis, random plasma glucose results greater than or equal to 200 mg/dL meet the criteria for diagnosis of diabetes. Reference: Standards of Medical Care in Diabetes 2016, [place] Diabetes Association. Diabetes Care. 2016.39(Suppl 1). LAB BUN 7-21 mg/dL BUN 15 LAB CRET 0.58-0.96 mg/dL Creatinine 0.88 LAB NA 136-144 mmol/L Sodium 141 LAB K 3.7-5.1 mmol/L Potassium 4.3 LAB CL 97-105 mmol/L Chloride 102 LAB CO2 22-30 mmol/L CO2 25 LAB AGAP 9-18 mmol/L Anion Gap 14 LAB ALT 7-38 U/L ALT 7 LAB GFRAA eGFR- Amer. >60 LAB GFRNAA . eGFR-All Other Races >60 Result Comment: eGFR (Estimated GFR) Units of measure: mL/min/1.73 meters squared eGFR is derived from the reexpressed MDRD Study equation using the following parameters: serum creatinine, age, gender and race. The creatinine assay has been calibrated to be traceable to IDMS. An eGFR <60 mL/min/1.73m2 for >3 months is consistent with chronic kidney disease. Refer to KDOQI guidelines for clinical interpretation. In patients with unstable renal function, e.g. those with acute kidney injury, the eGFR may not accurately reflect actual GFR. Performed By: #### CBCDIF, CMP, LIPB #### [facility] [address] [place] [id number] LIPID PANEL, BASIC Collected: 12/09/2017 Status: F Source: [place] 9:22 AM [facility] REPOSITORY TYPE CODE TESTS RESULT OUT OF REFERENCE UNITS RANGE LAB CHOL <200 mg/dL Cholesterol 149 Result Comment: <200 mg/dL, Desirable 200-239 mg/dL, Borderline high >239 mg/dL, High LAB TRIGLY <150 mg/dL Triglyceride 104 Result Comment: <150 mg/dL, Normal 150-199 mg/dL, Borderline high 200-499 mg/dL, High >499 mg/dL, Very high LAB HDL >39 mg/dL HDL-Cholesterol 47 Result Comment: 40-59 mg/dL, Acceptable >59 mg/dL, High: Negative risk factor for coronary heart disease <40 mg/dL, Low: Positive risk factor for coronary heart disease LAB LDL <100 mg/dL LDL-Cholesterol 81 Result Comment: <100 mg/dL, Optimal 100-129 mg/dL, Near optimal/above optimal 130-159 mg/dL, Borderline high 160-189 mg/dL, High >189 mg/dL, Very high Secondary prevention optimal LDL Cholesterol levels are recommended to be < 70 mg/dL LAB NONHDL <130 mg/dL Non HDL Cholesterol 102 Result Comment: <130 mg/dL, Optimal 130-159 mg/dL, Near optimal/above optimal 160-189 mg/dL, Borderline high 190-219 mg/dL, High >219 mg/dL, Very high Secondary prevention optimal non HDL Cholesterol levels are recommended to be < 100 mg/dL LAB FT hrs Fasting Time 12 LAB VLDL <30 mg/dL VLDL Cholesterol 21 LAB TCHDL <5.10 TC:HDL Ratio 3.17 LAB LDLHDL <2.54 LDL:HDL Ratio 1.72 Result Comment: Reference: 1. National Cholesterol Education Program ATP III Guideline At-A-Glance Quick Desk Reference: National Heart, Lung, and Blood [place]urt. National Institutes of Health. 2001: NIH Publication No. 01-3305. 2. An International Atherosclerosis Society position paper: global recommendations for the management of dyslipidemia: executive summary, Atherosclerosis. 2014: 232(2):410-413. Performed By: #### CBCDIF, CMP, LIPB #### [facility] [address] [address] CK Collected: 12/09/2017 Status: F Source: [facility] 9:22 AM [facility] REPOSITORY TYPE CODE TESTS RESULT OUT OF RANGE REFERENCE UNITS LAB CK 42-196 U/L Low CK 30 Performed By: #### CK, MG1, TSH #### [place] [address] MAGNESIUM Collected: 12/09/2017 Status: F Source: [place] 9:22 AM [facility] REPOSITORY TYPE CODE TESTS RESULT OUT OF REFERENCE UNITS RANGE LAB MG 1.7-2.3 mg/dL Magnesium 2.3 Performed By: #### CK, MG1, TSH #### [facility] [address] [address] TSH Collected: 12/09/2017 Status: F Source: [place] 9:22 AM [facility] REPOSITORY TYPE CODE TESTS RESULT OUT OF RANGE REFERENCE UNITS LAB TSH 0.400-5.500 uU/mL TSH 1.570 Performed By: #### CK, MG1, TSH #### [place] [id number] [place] [address] CNOV Observed: 10/08/2017 Status: COMPLETED Source: [place] 3:00 PM [facility] REPOSITORY Office Visit (WSTR) GUICHO CARMEN ([id number]) 1935 F CHT Date Time Provider Department 10/08/17 3:00 PM SERAFIN SETHI) [facility] [place] During your visit today, we recorded the following information about you: Temperature Pulse Respiration Blood pressure 98 degrees 72/minute 18/minute 126/80 Weight 52.5 kg Serafin Sethi PA-C 10/08/2017 3:33 PM Signed Subjective HPI Pt presents with nasal congestion and cough x 10 days. Her nose has been runny as well. Mostly clear drainage. NO fever or vomiting. No abdominal pain. When this started she had diarrhea for 1-2 days but that subsided. Review of Systems Constitutional: Negative. HENT: Positive for congestion. Eyes: Negative. Respiratory: Positive for cough. Cardiovascular: Negative. Gastrointestinal: Positive for diarrhea. Genitourinary: Negative. Musculoskeletal: Negative. Skin: Negative. All other systems reviewed and are negative. PAST MEDICAL HISTORY Diagnosis Date - Benign neoplasm of colon - Diverticulosis of colon (without mention of hemorrhage) - Internal hemorrhoids without mention of complication - ITP (idiopathic thrombocytopenic purpura) History of episode in 1999 - Other and unspecified hyperlipidemia - Unspecified glaucoma(365.9) Current Outpatient Prescriptions: simvastatin (ZOCOR) 20 mg tablet Take 0.5-1 tablets by mouth once daily. as directed based on labs Disp: 90 tablet Rfl: 3 Magnesium 200 mg tab Take 1 tablet by mouth once daily. Disp: 90 tablet Rfl: 0 calcium carbonate-vitamin D (OS-DEBBI 250 W/D) 250 (625)-125 mg-unit tab Take 1 tablet by mouth once daily. Disp: Rfl: LUMIGAN 0.03 % EYE DROPS one drop each eye nightly Disp: Rfl: 0 THERAPEUTIC MULTIVITAMIN TAB Take one(1) tablet daily. Disp: Rfl: 0 fluticasone (FLONASE) 50 mcg/actuation nasal spray Use 2 Sprays in each nostril once daily. Rinse mouth after use. Disp: 1 Bottle Rfl: 0 loratadine (CLARITIN) 10 mg tablet Take 1 tablet by mouth once daily. Disp: 14 tablet Rfl: 0 doxycycline (VIBRA-TABS) 100 mg tablet Take 1 tablet by mouth twice daily for 10 days. Disp: 20 tablet Rfl: 0 No current facility-administered medications for this visit. 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 - PAST SURGICAL HISTORY OF 05/2007 knee surgery - PAST SURGICAL HISTORY OF 2011 bilateral cataract - PAST SURGICAL HISTORY OF bilat great toe repair - PAST SURGICAL HISTORY OF left shoulder repair, arthoscopy - REMOVAL OF TONSILS,<12 Y/O Tonsillectomy - TOTAL ABDOM HYSTERECTOMY 1985 Hysterectomy, [facility]OOSE FAMILY HISTORY Problem Relation Age of Onset - Diabetes Mother feeding tube - Stroke Father colon cancer - Heart Brother aneurysm behind heart - Aneurysm Brother stomach Social History Substance Use Topics - Smoking status: Never Smoker - Smokeless tobacco: Never Used - Alcohol use No BP 126/80 Pulse 72 Temp 36.7 ?C (98 ?F) (Tympanic) Resp 18 Wt 52.5 kg (115 lb 12.8 oz) SpO2 97% BMI 18.98 kg/m? Objective Physical Exam Constitutional: She is oriented to person, place, and time and well-developed, well-nourished, and in no distress. HENT: Head: Normocephalic and atraumatic. Right Ear: Tympanic membrane, external ear and ear canal normal. Left Ear: Tympanic membrane, external ear and ear canal normal. Nose: Mucosal edema and rhinorrhea present. Mouth/Throat: Uvula is midline, oropharynx is clear and moist and mucous membranes are normal. Cardiovascular: Normal rate, regular rhythm and normal heart sounds. Pulmonary/Chest: Effort normal and breath sounds normal. Neurological: She is alert and oriented to person, place, and time. Skin: Skin is warm and dry. No rash noted. Psychiatric: Affect and judgment normal. Nursing note and vitals reviewed. ASSESSMENT/PLAN: 1. Protracted URI - ICD9: 465.9, ICD10: J06.9 - Discussed viral etiology and rationale for treatment. - Symptomatic treatment with prn analgesia - Supportive care with fluids and rest - Given flonase and claritin. Discussed if no improvement or worsening in 4-5 days may fill doxycycline. - Discussed with patient concerning symptoms to go to the emergency department or follow up here. Pt agreeable with this plan. Serafin Sethi PA-C Referring Provider: SELF [[id number]] Allergies As of Date: 10/08/2017 Noted Allergy Reaction ASA (SALICYLATES) 01/08/2005 14 - Other: See Comments Comments: Hx of low plateletes IBUPROFEN 01/08/2005 4 - Hives PENICILLINS 01/08/2005 Comments: passed out Date Reviewed: 10/08/2017 Reviewed by: Brittni Manzanares LPN - Fully Assessed Reason for Visit: phlegm in throat, and runny nose [Other] Cmt: x 10 days Primary Visit Diagnosis:Protracted URI [J06.9] Order(s):fluticasone (FLONASE) 50 mcg/actuation nasal sprayUse 2 Sprays in each nostril once daily. Rinse mouth after use.Disp: 1 BottleRfl: 0 loratadine (CLARITIN) 10 mg tabletTake 1 tablet by mouth once daily.Disp: 14 tabletRfl: 0 doxycycline (VIBRA-TABS) 100 mg tabletTake 1 tablet by mouth twice daily for 10 days.Disp: 20 tabletRfl: 0 Prescriptions as of 10/08/2017 Sig: SIMVASTATIN 20 MG TABLET Take 0.5-1 tablets by mouth o* MAGNESIUM 200 MG TABLET Take 1 tablet by mouth once d* CALCIUM CARB-ERGOCALCIFEROL (* Take 1 tablet by mouth once d* LUMIGAN 0.03 % EYE DROPS one drop each eye nightly THERAPEUTIC MULTIVITAMIN TABL* Take one(1) tablet daily. FLUTICASONE 50 MCG/ACTUATION * Use 2 Sprays in each nostril * LORATADINE 10 MG TABLET Take 1 tablet by mouth once d* DOXYCYCLINE HYCLATE 100 MG TA* Take 1 tablet by mouth twice * Problem List As Of Date 10/08/2017 Noted Resolved GLAUCOMA NOS [H40.9] Hyperlipidemia [E78.5] FAMILY HX GI MALIGNANCY [Z80.0] INVALID FOR* BENIGN NEOPLASM LG BOWEL [D12.6] DIVERTICULOSIS OF COLON W/O BLEED [K57.30] INT HEMORRHOID W/O COMPL [K64.8] DYSMETABOLIC SYNDROME X [E88.81] INVALID FOR* Seborrheic Keratosis [L82.1] INVALID FOR* Surgical Scar of Skin of Nose from Moh's Surger*INVALID FOR* H/O BCC: Desmoplastic Trichoepithelioma type: n*INVALID FOR* Actinic Damage///Sun-Damaged Skin [L57.8] INVALID FOR* Solar Lentigo [L81.4] INVALID FOR* Amaral Angioma///Capillary Angioma [I78.1] INVALID FOR* Telangiectasia [I78.1] INVALID FOR* Rosacea [L71.9] INVALID FOR* Actinic Keratosis (Premalignant AK) [L57.0] INVALID FOR* Irritated//Inflamed Seborrheic Keratosis [L82.0]INVALID FOR* Sebaceous hyperplasia [L73.8] INVALID FOR* Actinic skin damage [L57.8] INVALID FOR* Postinflammatory skin changes [R23.4] INVALID FOR* Milial cysts [L72.0] INVALID FOR* Solar elastosis [L57.8] INVALID FOR* Sebaceous hyperplasia of face [L73.8] INVALID FOR* ITP (idiopathic thrombocytopenic purpura) [D69.* 06/10/2013 More... 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 Lactose intolerance [E73.9] INVALID FOR* Prescriptions ordered this encounter Disp Refills Start End FLUTICASONE 50 MCG/ACTUATION NASAL S* 1 Maicol* 0 10/08/2017 Route: EACH NOSTRIL Sig: Use 2 Sprays in each nostril once daily. Rinse mouth after use. LORATADINE 10 MG TABLET 14 t* 0 10/08/2017 Route: ORAL Sig: Take 1 tablet by mouth once daily. DOXYCYCLINE HYCLATE 100 MG TABLET 20 t* 0 10/08/2017 10/18/2017 Class: Print RX Route: ORAL Sig: Take 1 tablet by mouth twice daily for 10 days. Encounter Status:Closed by SERAFIN SETHI PA-C on 10/08/17 PROGRESS Observed: 10/08/2017 Status: COMPLETED Source: [place] 2:58 PM [facility] REPOSITORY [facility] ID: [id number] Author: Serafin Sethi (Pa) Service: (none) Author Type: Physician Warp Changer Type: Progress Notes Filed: 10/08/2017 3:33 PM Note Text: Subjective HPI Pt presents with nasal congestion and cough x 10 days. Her nose has been runny as well. Mostly clear drainage. NO fever or vomiting. No abdominal pain. When this started she had diarrhea for 1-2 days but that subsided. Review of Systems Constitutional: Negative. HENT: Positive for congestion. Eyes: Negative. Respiratory: Positive for cough. Cardiovascular: Negative. Gastrointestinal: Positive for diarrhea. Genitourinary: Negative. Musculoskeletal: Negative. Skin: Negative. All other systems reviewed and are negative. PAST MEDICAL HISTORY Diagnosis Date - Benign neoplasm of colon - Diverticulosis of colon (without mention of hemorrhage) - Internal hemorrhoids without mention of complication - ITP (idiopathic thrombocytopenic purpura) History of episode in 1999 - Other and unspecified hyperlipidemia - Unspecified glaucoma(365.9) Current Outpatient Prescriptions: simvastatin (ZOCOR) 20 mg tablet Take 0.5-1 tablets by mouth once daily. as directed based on labs Disp: 90 tablet Rfl: 3 Magnesium 200 mg tab Take 1 tablet by mouth once daily. Disp: 90 tablet Rfl: 0 calcium carbonate-vitamin D (OS-DEBBI 250 W/D) 250 (625)-125 mg-unit tab Take 1 tablet by mouth once daily. Disp: Rfl: LUMIGAN 0.03 % EYE DROPS one drop each eye nightly Disp: Rfl: 0 THERAPEUTIC MULTIVITAMIN TAB Take one(1) tablet daily. Disp: Rfl: 0 fluticasone (FLONASE) 50 mcg/actuation nasal spray Use 2 Sprays in each nostril once daily. Rinse mouth after use. Disp: 1 Bottle Rfl: 0 loratadine (CLARITIN) 10 mg tablet Take 1 tablet by mouth once daily. Disp: 14 tablet Rfl: 0 doxycycline (VIBRA-TABS) 100 mg tablet Take 1 tablet by mouth twice daily for 10 days. Disp: 20 tablet Rfl: 0 No current facility-administered medications for this visit. 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 - PAST SURGICAL HISTORY OF 05/2007 knee surgery - PAST SURGICAL HISTORY OF 2011 bilateral cataract - PAST SURGICAL HISTORY OF bilat great toe repair - PAST SURGICAL HISTORY OF left shoulder repair, arthoscopy - REMOVAL OF TONSILS,<14 Y/O Tonsillectomy - TOTAL ABDOM HYSTERECTOMY 1984 Hysterectomy, [facility] FAMILY HISTORY Problem Relation Age of Onset - Diabetes Mother feeding tube - Stroke Father colon cancer - Heart Brother aneurysm behind heart - Aneurysm Brother stomach Social History Substance Use Topics - Smoking status: Never Smoker - Smokeless tobacco: Never Used - Alcohol use No BP 126/80 Pulse 72 Temp 36.7 ?C (98 ?F) (Tympanic) Resp 18 Wt 52.5 kg (115 lb 12.8 oz) SpO2 97% BMI 18.98 kg/m? Objective Physical Exam Constitutional: She is oriented to person, place, and time and well-developed, well-nourished, and in no distress. HENT: Head: Normocephalic and atraumatic. Right Ear: Tympanic membrane, external ear and ear canal normal. Left Ear: Tympanic membrane, external ear and ear canal normal. Nose: Mucosal edema and rhinorrhea present. Mouth/Throat: Uvula is midline, oropharynx is clear and moist and mucous membranes are normal. Cardiovascular: Normal rate, regular rhythm and normal heart sounds. Pulmonary/Chest: Effort normal and breath sounds normal. Neurological: She is alert and oriented to person, place, and time. Skin: Skin is warm and dry. No rash noted. Psychiatric: Affect and judgment normal. Nursing note and vitals reviewed. ASSESSMENT/PLAN: 1. Protracted URI - ICD9: 465.9, ICD10: J06.9 - Discussed viral etiology and rationale for treatment. - Symptomatic treatment with prn analgesia - Supportive care with fluids and rest - Given flonase and claritin. Discussed if no improvement or worsening in 4-5 days may fill doxycycline. - Discussed with patient concerning symptoms to go to the emergency department or follow up here. Pt agreeable with this plan. Serafin Sethi PA-C HISTORY PHYSICAL Observed: 07/21/2017 Status: COMPLETED Source: [place] 2:00 PM [facility] REPOSITORY O ID: [id number] Author: Lubna So) Juanjo Service: (none) Author Type: Nurse Practitioner Type: HANDP Filed: 07/21/2017 3:19 PM Note Text: Guicho Cade Carmen a 82 year old female who is a consultation requested by Ayanna Morocho NP, for an opinion regarding diarrhea. My final recommendations will be communicated back to the requesting provider by way of shared Medical record. The patient has not been seen previously. The patient denies a personal and family history of colon cancer. The patient was seen by Ayanna on 06/04/17, leading to this consultation. That note has been reviewed and part as follows: Continues to have diarrhea. Has changed to almond milk to see if the diarrhea stopped. Diarrhea has lessened but continue to experience diarrhea 1/2 hour after ingesting greasy or spicy foods. Patient still has GB. Component Latest Ref Rng AND Units 05/30/2017 Protein, Total 6.3 - 8.0 g/dL 7.6 Albumin 3.9 - 4.9 g/dL 4.3 Calcium 8.5 - 10.2 mg/dL 9.5 Bilirubin, Total 0.2 - 1.3 mg/dL 0.8 Alkaline Phosphatase 32 - 117 U/L 82 AST 13 - 35 U/L 23 Glucose 74 - 99 mg/dL 100 (H) BUN 7 - 21 mg/dL 16 Creatinine 0.58 - 0.96 mg/dL 1.08 (H) Sodium 136 - 144 mmol/L 145 (H) Potassium 3.7 - 5.1 mmol/L 4.6 Chloride 97 - 105 mmol/L 105 CO2 22 - 30 mmol/L 28 Anion Gap 9 - 18 mmol/L 12 ALT 7 - 38 U/L 13 eGFR- 59 eGFR-All Other Races . 49 Component Latest Ref Rng AND Units 05/30/2017 Magnesium 1.7 - 2.3 mg/dL 2.4 (H) Component Latest Ref Rng AND Units 06/04/2017 GGT 6 - 46 U/L 10 Lipase 16 - 61 U/L 36 Amylase 30 - 104 U/L 63 RUQ US 06/12/17: IMPRESSION: MULTIPLE SIMPLE AND MILDLY COMPLEX HEPATIC CYSTS, NO SOLID MASS NO CHOLELITHIASIS OR BILIARY DILATION NORMAL SPLEEN * * * * * * * * ADDENDUM #1 * * * * * * * * CBD diameter is 6 mm, not 6 cm In chart review - these cysts were reported on the 2013 comparison. The patient was seen by Dr. Jesus Manuel Coronado for EGD and colonoscopy 09/30/13. The procedure report has been reviewed and findings as follows: DATE OF SERVICE: September 30, 2013. PREOPERATIVE DIAGNOSES: Epigastric pain, diarrhea, known hiatal hernia. POSTOPERATIVE DIAGNOSES: Large sliding hiatal hernia, tortuous colon. PROCEDURES: Esophagogastroduodenoscopy with antral PyloriTek biopsy and Walker probe placement. Colonoscopy with random biopsies. Final diagnosis: No pathologic change. No colitis. Presenting complaint: The patient presents today stating I have been trying to keep track of what I was eating to see if that was the culprit. Nothing specific jumps out. She tells me that she is lactose intolerant and uses Lactaid tablets. She tells me that she has a lot of uncontrollable gas. It can happen with anything, including water. Onset a few years ago. It comes and goes. No odor with it. A lot of bowel noise. She denies any nausea or abdominal pain. The patient tells me that she will get diarrhea when she consumes oil. Gives the example of pork chop with fried potatoes. She goes on to say, however, that she has problems eating a salad away from home. Wonders about what they might put on the lettuce. The patient tells me that she might have several weeks between episodes. The patient takes 1/2 of a 500mg magnesium tablet daily. The episodes of diarrhea started before she started taking this. REVIEW OF SYSTEMS: GENERAL: No weight loss, malaise or fevers CARDIOVASCULAR: Negative for chest pain, leg swelling, hypertension, CHF or palpitations. She is on a statin. GI: The patient states that her appetite has been adequate. She does get hungry. There has been no nausea, no vomiting. She denies dysphagia and denies odynophagia. There has not been indigestion or heartburn. There has not been regurgitation. Bowel habits have been stable. There has been diarrhea. There has not been constipation. The patient denies rectal bleeding. There has not been melena. No abdominal pain. : No history of dysuria, frequency or incontinence All other reviewed and negative other than HPI. PAST MEDICAL HISTORY Diagnosis Date - Benign neoplasm of colon - Diverticulosis of colon (without mention of hemorrhage) - Diverticulosis of colon (without mention of hemorrhage) - Family history of malignant neoplasm of gastrointestinal tract - Internal hemorrhoids without mention of complication - ITP (idiopathic thrombocytopenic purpura) History of episode in 1999 - Other and unspecified hyperlipidemia - Unspecified glaucoma(365.9) 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 as directed based on labs Disp: 90 tablet Rfl: 3 Magnesium 200 mg tab Take 1 tablet by mouth once daily. Disp: 90 tablet Rfl: 0 calcium carbonate-vitamin D (OS-DEBBI 250 W/D) 250 (625)-125 mg-unit tab Take 1 tablet by mouth once daily. Disp: Rfl: LUMIGAN 0.03 % EYE DROPS one drop each eye nightly Disp: Rfl: 0 THERAPEUTIC MULTIVITAMIN TAB Take one(1) tablet daily. Disp: Rfl: 0 No current facility-administered medications for this visit. SOCIAL HISTORY: Patient is . She has never smoked and reports her alcohol use as never. PHYSICAL EXAMINATION: Blood pressure 134/60, pulse 80, height 166.4 cm (5' 5.5), weight 54 kg (119 lb). General Appearance: Well appearing, alert, in no acute distress, well-hydrated, well nourished. Skin: Skin color, texture, turgor normal, no suspicious rashes or lesions. Head: Normocephalic, no masses, lesions or abnormalities. Eyes: Anicteric sclera. Neck: Supple, no adenopathy; thyroid symmetric, normal size. Lungs: Lungs clear to auscultation. No wheezing, rhonchi, rales. Heart: RRR without murmur. Abdomen: Normal abdominal exam, Abdomen soft, non-tender. Bowel sounds normal. No masses, organomegaly. Extremities: No deformities, edema, skin discoloration, clubbing or cyanosis. Peripheral Pulses: Normal. Neurologic: Gait normal.Sensation grossly intact. Impression: functional bowel disorder 2)lactose intolerance Plan: Will begin with starting Benefiber. She may use Imodium as needed. I have asked her to call with an update in mid August, sooner, with any concerns. She agrees with this plan. I have personally interviewed and examined this patient. I have reviewed the information that the MA entered for this encounter. Greater than 30 minutes total time used this visit to review old chart, review new information, update current history and evaluate patient. A majority of the time was spent in discussion and counseling to formulate the plan. Lubna Geiger RN APRN.SENIOR SYSTEMS ADMINISTRATOR CNOV Observed: 07/21/2017 Status: COMPLETED Source: [place] 2:00 PM [facility] REPOSITORY [facility] GUICHO CARMEN ([id number]) 1935 F CHT Date Time Provider Department 07/21/17 2:00 PM LUBNA GEIGER (VANESSA) [facility] During your visit today, we recorded the following information about you: Pulse Blood pressure Weight Height 80/minute 134/60 54 kg 1.664 m Lubna Geiger RN SCHOOL VOCATIONAL EDUCATOR.SENIOR SYSTEMS ADMINISTRATOR 07/21/2017 3:19 PM Signed Guicho Cade Nella a 82 year old female who is a consultation requested by Ayanna Morocho NP, for an opinion regarding diarrhea. My final recommendations will be communicated back to the requesting provider by way of shared Medical record. The patient has not been seen previously. The patient denies a personal and family history of colon cancer. The patient was seen by Ayanna on 06/04/17, leading to this consultation. That note has been reviewed and part as follows: Continues to have diarrhea. Has changed to almond milk to see if the diarrhea stopped. Diarrhea has lessened but continue to experience diarrhea 1/2 hour after ingesting greasy or spicy foods. Patient still has GB. Component Latest Ref Rng AND Units 05/30/2017 Protein, Total 6.3 - 8.0 g/dL 7.6 Albumin 3.9 - 4.9 g/dL 4.3 Calcium 8.5 - 10.2 mg/dL 9.5 Bilirubin, Total 0.2 - 1.3 mg/dL 0.8 Alkaline Phosphatase 32 - 117 U/L 82 AST 13 - 35 U/L 23 Glucose 74 - 99 mg/dL 100 (H) BUN 7 - 21 mg/dL 16 Creatinine 0.58 - 0.96 mg/dL 1.08 (H) Sodium 136 - 144 mmol/L 145 (H) Potassium 3.7 - 5.1 mmol/L 4.6 Chloride 97 - 105 mmol/L 105 CO2 22 - 30 mmol/L 28 Anion Gap 9 - 18 mmol/L 12 ALT 7 - 38 U/L 13 eGFR- 59 eGFR-All Other Races . 49 Component Latest Ref Rng AND Units 05/30/2017 Magnesium 1.7 - 2.3 mg/dL 2.4 (H) Component Latest Ref Rng AND Units 06/04/2017 GGT 6 - 46 U/L 10 Lipase 16 - 61 U/L 36 Amylase 30 - 104 U/L 63 RUQ US 06/12/17: IMPRESSION: MULTIPLE SIMPLE AND MILDLY COMPLEX HEPATIC CYSTS, NO SOLID MASS NO CHOLELITHIASIS OR BILIARY DILATION NORMAL SPLEEN * * * * * * * * ADDENDUM #1 * * * * * * * * CBD diameter is 6 mm, not 6 cm In chart review - these cysts were reported on the 2014 comparison. The patient was seen by Dr. Jesus Manuel Coronado for EGD and colonoscopy 09/30/13. The procedure report has been reviewed and findings as follows: DATE OF SERVICE: September 30, 2013. PREOPERATIVE DIAGNOSES: Epigastric pain, diarrhea, known hiatal hernia. POSTOPERATIVE DIAGNOSES: Large sliding hiatal hernia, tortuous colon. PROCEDURES: Esophagogastroduodenoscopy with antral PyloriTek biopsy and Walker probe placement. Colonoscopy with random biopsies. Final diagnosis: No pathologic change. No colitis. Presenting complaint: The patient presents today stating I have been trying to keep track of what I was eating to see if that was the culprit. Nothing specific jumps out. She tells me that she is lactose intolerant and uses Lactaid tablets. She tells me that she has a lot of uncontrollable gas. It can happen with anything, including water. Onset a few years ago. It comes and goes. No odor with it. A lot of bowel noise. She denies any nausea or abdominal pain. The patient tells me that she will get diarrhea when she consumes oil. Gives the example of pork chop with fried potatoes. She goes on to say, however, that she has problems eating a salad away from home. Wonders about what they might put on the lettuce. The patient tells me that she might have several weeks between episodes. The patient takes 1/2 of a 500mg magnesium tablet daily. The episodes of diarrhea started before she started taking this. REVIEW OF SYSTEMS: GENERAL: No weight loss, malaise or fevers CARDIOVASCULAR: Negative for chest pain, leg swelling, hypertension, CHF or palpitations. She is on a statin. GI: The patient states that her appetite has been adequate. She does get hungry. There has been no nausea, no vomiting. She denies dysphagia and denies odynophagia. There has not been indigestion or heartburn. There has not been regurgitation. Bowel habits have been stable. There has been diarrhea. There has not been constipation. The patient denies rectal bleeding. There has not been melena. No abdominal pain. : No history of dysuria, frequency or incontinence All other reviewed and negative other than HPI. PAST MEDICAL HISTORY Diagnosis Date - Benign neoplasm of colon - Diverticulosis of colon (without mention of hemorrhage) - Diverticulosis of colon (without mention of hemorrhage) - Family history of malignant neoplasm of gastrointestinal tract - Internal hemorrhoids without mention of complication - ITP (idiopathic thrombocytopenic purpura) History of episode in 1999 - Other and unspecified hyperlipidemia - Unspecified glaucoma(365.9) 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 as directed based on labs Disp: 90 tablet Rfl: 3 Magnesium 200 mg tab Take 1 tablet by mouth once daily. Disp: 90 tablet Rfl: 0 calcium carbonate-vitamin D (OS-DEBBI 250 W/D) 250 (625)-125 mg-unit tab Take 1 tablet by mouth once daily. Disp: Rfl: LUMIGAN 0.03 % EYE DROPS one drop each eye nightly Disp: Rfl: 0 THERAPEUTIC MULTIVITAMIN TAB Take one(1) tablet daily. Disp: Rfl: 0 No current facility-administered medications for this visit. SOCIAL HISTORY: Patient is . She has never smoked and reports her alcohol use as never. PHYSICAL EXAMINATION: Blood pressure 134/60, pulse 80, height 166.4 cm (5' 5.5), weight 54 kg (119 lb). General Appearance: Well appearing, alert, in no acute distress, well-hydrated, well nourished. Skin: Skin color, texture, turgor normal, no suspicious rashes or lesions. Head: Normocephalic, no masses, lesions or abnormalities. Eyes: Anicteric sclera. Neck: Supple, no adenopathy; thyroid symmetric, normal size. Lungs: Lungs clear to auscultation. No wheezing, rhonchi, rales. Heart: RRR without murmur. Abdomen: Normal abdominal exam, Abdomen soft, non-tender. Bowel sounds normal. No masses, organomegaly. Extremities: No deformities, edema, skin discoloration, clubbing or cyanosis. Peripheral Pulses: Normal. Neurologic: Gait normal.Sensation grossly intact. Impression: functional bowel disorder 2)lactose intolerance Plan: Will begin with starting Benefiber. She may use Imodium as needed. I have asked her to call with an update in mid August, sooner, with any concerns. She agrees with this plan. I have personally interviewed and examined this patient. I have reviewed the information that the MA entered for this encounter. Greater than 30 minutes total time used this visit to review old chart, review new information, update current history and evaluate patient. A majority of the time was spent in discussion and counseling to formulate the plan. Lubna Geiger RN SCHOOL VOCATIONAL EDUCATOR.NANDA Geiger RN SCHOOL VOCATIONAL EDUCATOR.NANDA 07/21/2017 2:53 PM Signed Begin Benefiber. Start by taking one teaspoon in 8 oz of liquid daily for three weeks. Increase to two teaspoons daily for three weeks. Finally take a tablespoon daily. At that point you may divide the dose and take twice a day, if you'd like. Do not stop using this. Call with an update mid August. [phone] and ask for the GI nurse. 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] INT HEMORRHOID W/O COMPL [K64.8] DYSMETABOLIC SYNDROME X [E88.81] INVALID FOR* Seborrheic Keratosis [L82.1] INVALID FOR* Surgical Scar of Skin of Nose from Moh's Surger*INVALID FOR* H/O BCC: Desmoplastic Trichoepithelioma type: n*INVALID FOR* Actinic Damage///Sun-Damaged Skin [L57.8] INVALID FOR* Solar Lentigo [L81.4] INVALID FOR* Amaral Angioma///Capillary Angioma [I78.1] INVALID FOR* Telangiectasia [I78.1] INVALID FOR* Rosacea [L71.9] INVALID FOR* Actinic Keratosis (Premalignant AK) [L57.0] INVALID FOR* Irritated//Inflamed Seborrheic Keratosis [L82.0]INVALID FOR* Sebaceous hyperplasia [L73.8] INVALID FOR* Actinic skin damage [L57.8] INVALID FOR* Postinflammatory skin changes [R23.4] INVALID FOR* Milial cysts [L72.0] INVALID FOR* Solar elastosis [L57.8] INVALID FOR* Sebaceous hyperplasia of face [L73.8] INVALID FOR* ITP (idiopathic thrombocytopenic purpura) [D69.* 06/10/2013 More... 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 Lactose intolerance [E73.9] INVALID FOR* Other instructions from your clinician: Begin Benefiber. Start by taking one teaspoon in 8 oz of liquid daily for three weeks. Increase to two teaspoons daily for three weeks. Finally take a tablespoon daily. At that point you may divide the dose and take twice a day, if you'd like. Do not stop using this. Call with an update mid August. [phone] and ask for the GI nurse. Encounter Status:Closed by LUBNA GEIGER CNP on 07/21/17 US ABD RIGHT UPPER Observed: 06/11/2017 Status: C Source: [facility] 10:46 AM [facility] REPOSITORY * * *Final Report* * * * * * SEE BOTTOM OF REPORT FOR ADDENDED TEXT * * * DATE OF EXAM: Jun 11 2017 10:46AM WRU 1032 - US ABD RIGHT UPPER QUADRANT / PROCEDURE REASON: Diarrhea, unspecified * * * * Physician Interpretation * * * * * * * * * * * * ORIGINAL REPORT * * * * * * * * EXAMINATION: RIGHT UPPER QUADRANT AND SPLEEN ULTRASOUND HISTORY: Diarrhea after greasy or spicy foods TECHNIQUE: Sonography of the right upper quadrant and spleen was performed. Images were obtained and stored in a permanent archive. MQ: [id number] COMPARISON: 09/10/2013 RESULT: Pancreas: Normal sonographic appearance. Portions obscured: tail Liver: Echotexture: Normal, homogeneous. Echogenicity: Normal Surface contour: Smooth Lesions: Multiple simple and mildly complex cysts are seen, including a 2.7 x 2.0 x 3.0 cm simple cyst in the LEFT lobe previously 2.7 x 1.8 x 2.4 cm and a 2.2 x 1.3 x 1.6 cm septated cyst adjacent to the gallbladder in the RIGHT lobe previously 2.5 x 2.1 x 2.5 cm . No solid-appearing mass Biliary: No intrahepatic biliary duct dilation. CBD: 6 cm at the hilum. Upper limits of normal Gallbladder: Normal caliber -Contents: No cholelithiasis -Wall: Normal -Other: No pericholecystic fluid. Right Kidney: No hydronephrosis. Ascites: None. Spleen is normal in size measuring 8.6 cm in length, and there are no focal splenic lesions IMPRESSION: MULTIPLE SIMPLE AND MILDLY COMPLEX HEPATIC CYSTS, NO SOLID MASS NO CHOLELITHIASIS OR BILIARY DILATION NORMAL SPLEEN * * * * * * * * ADDENDUM #1 * * * * * * * * CBD diameter is 6 mm, not 6 cm Travel Coordinator: PSCÁlvaro Transcribe Date/Time: Jun 12 2017 11:55A Dictated by : DONALD BALES MD This examination was interpreted and the report reviewed and electronically signed by: DONALD BALES MD on Jun 12 2017 11:19AM EST This document has been addended by: DONALD BALES MD on Jun 12 2017 11:55AM EST [id number] PROGRESS Observed: 06/11/2017 Status: COMPLETED Source: [place] 9:56 AM [facility] REPOSITORY HNO ID: [id number] Author: Rebecca Altamirano Rdms Service: (none) Author Type: (none) Type: Progress Notes Filed: 06/11/2017 10:41 AM Note Text: Radiology Service Progress Note PATIENT NAME: Guicho Carmen DATE OF SERVICE: June 11, 2017 TIME: 9:56 AM PATIENT IDENTITY VERIFICATION COMPLETED USING TWO (2) METHODS: Patient confirmed name verbally and Date of . PATIENT GENDER DATA: Female. status: : No status: NO. PATIENT RELEVANT IMPLANT DATA REVIEWED: Not Applicable RADIOLOGY DEPARTMENT: Ultrasound PERIPHERAL IV DATA: Not applicable SIGNED BY: Rebecca Altamirano Rdms June 11, 2017 9:56 AM PROGRESS Observed: 06/04/2017 Status: COMPLETED Source: [place] 11:47 AM [facility] REPOSITORY HNO ID: [id number] Author: Ayanna Morocho Service: (none) Author Type: Nurse Practitioner Type: Progress Notes Filed: 06/04/2017 11:55 AM Note Text: HPI/CC: Guicho Carmen is a 82 year old female who presents with F/U 6 Month for Lipids and Elevated BP without diagnosis of HTN. Elevated BP: normal today with no S/S of elevated BP. Denies CP, SOB, CLARK, edema, palpitations. Continues to have diarrhea. Has changed to almond milk to see if the diarrhea stopped. Diarrhea has lessened but continue to experience diarrhea 1/2 hour after ingesting greasy or spicy foods. Patient still has GB. Would like to participate in [employer]. Continues to experience intermittent leg cramping especially at night. Taking PO Mag daily. Labs reviewed with patient: Component Latest Ref Rng AND Units 05/30/2017 Protein, Total 6.3 - 8.0 g/dL 7.6 Albumin 3.9 - 4.9 g/dL 4.3 Calcium 8.5 - 10.2 mg/dL 9.5 Bilirubin, Total 0.2 - 1.3 mg/dL 0.8 Alkaline Phosphatase 32 - 117 U/L 82 AST 13 - 35 U/L 23 Glucose 74 - 99 mg/dL 100 (H) BUN 7 - 21 mg/dL 16 Creatinine 0.58 - 0.96 mg/dL 1.08 (H) Sodium 136 - 144 mmol/L 145 (H) Potassium 3.7 - 5.1 mmol/L 4.6 Chloride 97 - 105 mmol/L 105 CO2 22 - 30 mmol/L 28 Anion Gap 9 - 18 mmol/L 12 ALT 7 - 38 U/L 13 eGFR- 59 eGFR-All Other Races . 49 Cholesterol, Total <200 mg/dL 176 Triglyceride <150 mg/dL 150 (H) HDL Cholesterol >39 mg/dL 50 LDL Cholesterol <100 mg/dL 96 Non HDL Cholesterol <130 mg/dL 126 Fasting Time hrs 14 VLDL Cholesterol <30 mg/dL 30 (H) TC:HDL Ratio <5.10 3.52 LDL:HDL Ratio <2.54 1.92 Magnesium 1.7 - 2.3 mg/dL 2.4 (H) ASSESSMENT/PLAN: 1. Hyperlipidemia, unspecified hyperlipidemia type - ICD9: 272.4, ICD10: E78.5 (primary diagnosis) - continue current therapy 2. Diarrhea, unspecified type - ICD9: 787.91, ICD10: R19.7 - CONSULT TO GASTROENTEROLOGY - GGT BLD - LIPASE BLD - AMYLASE BLD - US ABD RT UPPER QUADRANT 3. Bilateral leg cramps - ICD9: 729.82, ICD10: R25.2 - patient interested in trial of OTC leg cramping supplements - f/u in 6 months with labs prior Ayanna Morocho APRN.CNP AMYLASE Collected: 06/04/2017 Status: F Source: [place] 10:37 AM [facility] REPOSITORY TYPE CODE TESTS RESULT OUT OF REFERENCE UNITS RANGE LAB AMYL 30-104 U/L Amylase 63 Performed By: #### AMYL, GGT, LIPA #### [facility] [address] [address] GGT Collected: 06/04/2017 Status: F Source: [place] 10:37 AM [facility] REPOSITORY TYPE CODE TESTS RESULT OUT OF RANGE REFERENCE UNITS LAB GGT 6-46 U/L GGT 10 Performed By: #### AMYL, GGT, LIPA #### [facility] [address] [address] LIPASE Collected: 06/04/2017 Status: F Source: [place] 10:37 AM [facility] REPOSITORY TYPE CODE TESTS RESULT OUT OF REFERENCE UNITS RANGE LAB LIPA 16-61 U/L Lipase 36 Performed By: #### AMYL, GGT, LIPA #### [facility] [address] [address] CNOV Observed: 06/04/2017 Status: COMPLETED Source: [place] 9:40 AM [facility] REPOSITORY Office Visit (FAMPWS) GUICHO CARMEN ([id number]) 1935 F CHT Date Time Provider Department 06/04/17 9:40 AM AYANNA MOROCHO (NANDA) FAMPWS During your visit today, we recorded the following information about you: Pulse Respiration Blood pressure Weight 64/minute 12/minute 118/60 54.4 kg Ayanna Morocho APRN.NANDA 06/04/2017 11:55 AM Signed HPI/CC: Guicho Carmen is a 82 year old female who presents with F/U 6 Month for Lipids and Elevated BP without diagnosis of HTN. Elevated BP: normal today with no S/S of elevated BP. Denies CP, SOB, CLARK, edema, palpitations. Continues to have diarrhea. Has changed to almond milk to see if the diarrhea stopped. Diarrhea has lessened but continue to experience diarrhea 1/2 hour after ingesting greasy or spicy foods. Patient still has GB. Would like to participate in [employer]. Continues to experience intermittent leg cramping especially at night. Taking PO Mag daily. Labs reviewed with patient: Component Latest Ref Rng ANDamp; Units 05/30/2017 Protein, Total 6.3 - 8.0 g/dL 7.6 Albumin 3.9 - 4.9 g/dL 4.3 Calcium 8.5 - 10.2 mg/dL 9.5 Bilirubin, Total 0.2 - 1.3 mg/dL 0.8 Alkaline Phosphatase 32 - 117 U/L 82 AST 13 - 35 U/L 23 Glucose 74 - 99 mg/dL 100 (H) BUN 7 - 21 mg/dL 16 Creatinine 0.58 - 0.96 mg/dL 1.08 (H) Sodium 136 - 144 mmol/L 145 (H) Potassium 3.7 - 5.1 mmol/L 4.6 Chloride 97 - 105 mmol/L 105 CO2 22 - 30 mmol/L 28 Anion Gap 9 - 18 mmol/L 12 ALT 7 - 38 U/L 13 eGFR- 59 eGFR-All Other Races . 49 Cholesterol, Total ANDlt;200 mg/dL 176 Triglyceride ANDlt;150 mg/dL 150 (H) HDL Cholesterol ANDgt;39 mg/dL 50 LDL Cholesterol ANDlt;100 mg/dL 96 Non HDL Cholesterol ANDlt;130 mg/dL 126 Fasting Time hrs 14 VLDL Cholesterol ANDlt;30 mg/dL 30 (H) TC:HDL Ratio ANDlt;5.10 3.52 LDL:HDL Ratio ANDlt;2.54 1.92 Magnesium 1.7 - 2.3 mg/dL 2.4 (H) ASSESSMENT/PLAN: 1. Hyperlipidemia, unspecified hyperlipidemia type - ICD9: 272.4, ICD10: E78.5 (primary diagnosis) - continue current therapy 2. Diarrhea, unspecified type - ICD9: 787.91, ICD10: R19.7 - CONSULT TO GASTROENTEROLOGY - GGT BLD - LIPASE BLD - AMYLASE BLD - US ABD RT UPPER QUADRANT 3. Bilateral leg cramps - ICD9: 729.82, ICD10: R25.2 - patient interested in trial of OTC leg cramping supplements - f/u in 6 months with labs prior Ayanna Morocho APRN.SENIOR SYSTEMS ADMINISTRATOR Referring Provider: NO PCP [[id number]] Allergies As of Date: 06/04/2017 Noted Allergy Reaction ASA (SALICYLATES) 01/08/2005 14 - Other: See Comments Comments: Hx of low plateletes IBUPROFEN 01/08/2005 4 - Hives PENICILLINS 01/08/2005 Comments: passed out Date Reviewed: 06/04/2017 Reviewed by: Amina Weaver Ma - Fully Assessed Reason for Visit: F/U 6 Month [444] Cmt: Lipids and Elevated BP without diagnosis of HTN Reason For Visit History Recorded Primary Visit Diagnosis:Hyperlipidemia, unspecified hyperlipidemia type [E78.5] Other Visit Diagnoses:Diarrhea, unspecified type [R19.7] Bilateral leg cramps [R25.2] Order(s):CONSULT TO GASTROENTEROLOGY [9010] Order #: [id number]: 1 GGT BLD [SQGGT] Order #: [id number] FUTURE LIPASE BLD [SQLIPA] Order #: [id number] FUTURE AMYLASE BLD [SQAMYL] Order #: [id number] FUTURE US ABD RT UPPER QUADRANT [9509548] Order #: [id number] FUTURE Prescriptions as of 06/04/2017 Sig: SIMVASTATIN 20 MG TABLET Take 0.5-1 tablets by mouth o* MAGNESIUM 200 MG TABLET Take 1 tablet by mouth once d* CALCIUM CARB-ERGOCALCIFEROL (* Take 1 tablet by mouth once d* LUMIGAN 0.03 % EYE DROPS one drop each eye nightly THERAPEUTIC MULTIVITAMIN TABL* Take one(1) tablet daily. 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] INT HEMORRHOID W/O COMPL [K64.8] DYSMETABOLIC SYNDROME X [E88.81] INVALID FOR* Seborrheic Keratosis [L82.1] INVALID FOR* Surgical Scar of Skin of Nose from Moh's Surger*INVALID FOR* H/O BCC: Desmoplastic Trichoepithelioma type: n*INVALID FOR* Actinic Damage///Sun-Damaged Skin [L57.8] INVALID FOR* Solar Lentigo [L81.4] INVALID FOR* Amaral Angioma///Capillary Angioma [I78.1] INVALID FOR* Telangiectasia [I78.1] INVALID FOR* Rosacea [L71.9] INVALID FOR* Actinic Keratosis (Premalignant AK) [L57.0] INVALID FOR* Irritated//Inflamed Seborrheic Keratosis [L82.0]INVALID FOR* Sebaceous hyperplasia [L73.8] INVALID FOR* Actinic skin damage [L57.8] INVALID FOR* Postinflammatory skin changes [R23.4] INVALID FOR* Milial cysts [L72.0] INVALID FOR* Solar elastosis [L57.8] INVALID FOR* Sebaceous hyperplasia of face [L73.8] INVALID FOR* ITP (idiopathic thrombocytopenic purpura) [D69.* 06/10/2013 More... 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 Lactose intolerance [E73.9] INVALID FOR* Encounter Status:Closed by AYANNA MOROCHO CNP on 06/04/17 COMP METABOLIC PANEL Collected: 05/30/2017 Status: F Source: [place] 9:[facility] AM [facility] TYPE CODE TESTS RESULT OUT OF REFERENCE UNITS RANGE LAB TP 6.3-8.0 g/dL Protein, Total 7.6 LAB ALB 3.9-4.9 g/dL Albumin 4.3 LAB CA 8.5-10.2 mg/dL Calcium, Total 9.5 LAB TBIL 0.2-1.3 mg/dL Bilirubin, Total 0.8 LAB ALKP 32-117 U/L Alkaline Phosphatase 82 LAB AST 13-35 U/L AST 23 LAB GLU 74-99 mg/dL Glucose High 100 Result Comment: The [place] Diabetes Association (ADA) provides guidance for cutoff values for fasting glucose and random glucose. The ADA defines fasting as no caloric intake for at least 8 hours. Fas ting plasma glucose results between 100 to 125 mg/dL indicate increased risk for diabetes (prediabetes). Fasting plasma glucose results greater than or equal to 126 mg/dL meet the criteria for diagnosis of diabetes. In the absence of unequivocal hyperglycemia, results should be confirmed by repeat testing. In a patient with classic symptoms of hyperglycemia or hyperglycemic crisis, random plasma glucose results greater than or equal to 200 mg/dL meet the criteria for diagnosis of diabetes. Reference: Standards of Medical Care in Diabetes 2016, [place] Diabetes Association. Diabetes Care. 2016.39(Suppl 1). LAB BUN 7-21 mg/dL BUN 16 LAB CRET 0.58-0.96 mg/dL Creatinine High 1.08 LAB NA 136-144 mmol/L Sodium High 145 LAB K 3.7-5.1 mmol/L Potassium 4.6 LAB CL 97-105 mmol/L Chloride 105 LAB CO2 22-30 mmol/L CO2 28 LAB AGAP 9-18 mmol/L Anion Gap 12 LAB ALT 7-38 U/L ALT 13 LAB GFRAA eGFR- Amer. 59 LAB GFRNAA . eGFR-All Other Races 49 Result Comment: eGFR (Estimated GFR) Units of measure: mL/min/1.73 meters squared eGFR is derived from the reexpressed MDRD Study equation using the following parameters: serum creatinine, age, gender and race. The creatinine assay has been calibrated to be traceable to [facility]. An eGFR <60 mL/min/1.73m2 for >3 months is consistent with chronic kidney disease. Refer to KDOQI guidelines for clinical interpretation. In patients with unstable renal function, e.g. those with acute kidney injury, the eGFR may not accurately reflect actual GFR. Performed By: #### CMP, LIPB, MG1 #### [facility] [address] [place], [place] [address] LIPID PANEL, BASIC Collected: 05/30/2017 Status: F Source: [place] 9:50 AM [facility] REPOSITORY TYPE CODE TESTS RESULT OUT OF REFERENCE UNITS RANGE LAB CHOL <200 mg/dL Cholesterol 176 Result Comment: <200 mg/dL, Desirable 200-239 mg/dL, Borderline high >239 mg/dL, High LAB TRIGLY <150 mg/dL Triglyceride High 150 Result Comment: <150 mg/dL, Normal 150-199 mg/dL, Borderline high 200-499 mg/dL, High >499 mg/dL, Very high LAB HDL >39 mg/dL HDL-Cholesterol 50 Result Comment: 40-59 mg/dL, Acceptable >59 mg/dL, High: Negative risk factor for coronary heart disease <40 mg/dL, Low: Positive risk factor for coronary heart disease LAB LDL <100 mg/dL LDL-Cholesterol 96 Result Comment: <100 mg/dL, Optimal 100-129 mg/dL, Near optimal/above optimal 130-159 mg/dL, Borderline high 160-189 mg/dL, High >189 mg/dL, Very high Secondary prevention optimal LDL Cholesterol levels are recommended to be < 70 mg/dL LAB NONHDL <130 mg/dL Non HDL Cholesterol 126 Result Comment: <130 mg/dL, Optimal 130-159 mg/dL, Near optimal/above optimal 160-189 mg/dL, Borderline high 190-219 mg/dL, High >219 mg/dL, Very high Secondary prevention optimal non HDL Cholesterol levels are recommended to be < 100 mg/dL LAB FT hrs Fasting Time 14 LAB VLDL <30 mg/dL High VLDL Cholesterol 30 LAB TCHDL <5.10 TC:HDL Ratio 3.52 LAB LDLHDL <2.54 LDL:HDL Ratio 1.92 Result Comment: Reference: 1. National Cholesterol Education Program ATP III Guideline At-A-Glance Quick Desk Reference: National Heart, Lung, and Blood [place]urt. National Institutes of Health. 2001: NIH Publication No. 01-3305. 2. An International Atherosclerosis Society position paper: global recommendations for the management of dyslipidemia: executive summary, Atherosclerosis. 2014: 232(2):410-413. Performed By: #### CMP, LIPB, MG1 #### [facility] [address] [place], [place] [address] MAGNESIUM Collected: 05/30/2017 Status: F Source: [place] 9:50 AM [facility] REPOSITORY TYPE CODE TESTS RESULT OUT OF REFERENCE UNITS RANGE LAB MG 1.7-2.3 mg/dL High Magnesium 2.4 Performed By: #### CMP, LIPB, MG1 #### [facility] [address] [address] ALLERGIES ALLERGIES DATE TYPE / CODE NAME / CODE REACTION SEVERITY SOURCE 03/25/2014 Drug Penicillins/[id number] Other Unknown Brenda Allergy/416 0476(RXNORM) Community 555303([facility] ED CT) Repository 03/25/2014 Drug aspirin/[id number] Hives SV [place] Allergy/416 (RXNORM) Community 265153([facility] ED CT) Repository 03/25/2014 Drug ibuprofen/[id number] Hives Unknown Brenda Allergy/416 77(RXNORM) Community 887262([facility] ED CT) Repository 01/08/2005 Drug SALICYLATES OTHER: SEE C [facility] Class/[address] [place] 1003(SNOMED Repository CT) 01/08/2005 DRUG IBUPROFEN HIVES [facility] INGREDI/419 [address] 884529(SNOM Repository ED CT) 01/08/2005 Drug PENICILLINS [facility] Class/27812 [address] [address]3(SNOMED Repository CT) ENCOUNTERS ENCOUNTERS ADMIT/DISCHARGE ACCOUNT ADMITTING ENCOUNTER LOCATION SOURCE NUMBER CLASS 03/20/[id number] [facility] ing:MTLAB Repository 02/09/2018/02/11/20 [id number] Ambulatory [address] Repository 12/30/2017/12/31/19 [id number] Ambulatory [address] [place] Repository 12/24/2017/12/25/19 [id number] Ambulatory [address] [place] Repository 12/15/2017/12/16/19 [id number] Ambulatory [address] [place] Repository 12/11/2017/12/12/19 [id number] Ambulatory [address] [place] Repository 12/09/2017/12/10/19 [id number] Ambulatory [address] Repository 12/09/2017/12/11/19 [id number] Ambulatory [address] Repository 12/09/2017/12/10/19 [id number] Ambulatory [address] [place] Repository 10/08/2017/10/10/19 [id number] Ambulatory [address] Repository 07/21/2017/07/23/19 [id number] Ambulatory [address] Repository 06/11/2017/06/12/19 [id number] Ambulatory [address] Repository 06/04/2017/06/05/19 [id number] Ambulatory [address] Repository 06/04/2017/06/06/19 [id number] Ambulatory [address] Repository 05/30/2017 [id number] Ambulatory [facility] Repository PAYERS PAYERS ENCOUNTER GUARANTOR PAYER SUBSCRIBER SOURCE 03/20/2018 GUICHO Mohamud Primary GUICHO [id number] Insurance:ORALIA MARMOLEJOB: [facility] Kim ALLISON [facility]: [id number] [address]Byx: [id number] Repository Date:[id number] [address] (TT) [id number] [place] [place] [address]CI: 03/20/2018 Secondary NOT GIVENUNK [place] Insurance:SELF PAY [facility] Number: Effective Repository Date:2018-03-20
== END ==
PROVIDERS: Family Provider Nurse Practitioner Adult Health; PCP Nurse Practitioner Adult Health; Referring Provider Internal Medicine Rheumatology; Visit Provider Internal Medicine Rheumatology
DX: M06.4 Inflammatory polyarthropathy (principal); M15.9 Polyosteoarthritis, unspecified; Q66.7 Congenital pes cavus; D69.3 Immune thrombocytopenic purpura; M81.0 Age-related osteoporosis without current pathological fracture; H40.9 Unspecified glaucoma
CPT/HCPCS: 36415; 80053; 85025; 85652; 86038; 86140; 86200; 86431; 86706; 86803; 87340

== ENCOUNTER → 2018-07-01 10:37 | Outpatient (CLI) | payer MEDICARE, SELFPAY ==
[2018-07-01 12:23] LABS: ALB/GLOB Ratio 1.1 RATIO (0.9-2.4); AST(SGOT) 21 U/L (15-37); Alanine Aminotransfer ALT/SGPT 21 U/L (13-56); Albumin, Serum 3.9 g/dL (3.2-5.0); Alkaline Phosphatase 69 U/L (45-117); Anion Gap 7 (5-15); BUN 21 mg/dL (7-18); BUN/Creat Ratio 18.4 RATIO (10-20); Calcium,Total 9.4 mg/dL (8.5-10.1); Chloride 105 mmol/L (98-107); Creatinine, Serum 1.14 mg/dL (0.55-1.02); EST Glomerular Filtration Rate 49 mL/min (>60); Est Glom Filt Rate - Afr Amer 59 mL/min (>60); Globulin 3.5 g/dL (2.2-4.2); Glucose 90 mg/dL (74-106); Potassium 4.4 mmol/L (3.5-5.1); Protein, Total 7.4 g/dL (6.4-8.2); Sodium Level 143 mmol/L (136-145)
[2018-07-01 12:26] LABS: Absolute Lymphocyte Count 1.44 X10^3/ul (0.83-4.51); Basophil# 0.02 X10^3/uL; Basophil% 0.3 % (0-1); Eosinophil# 0.17 X10^3/uL; Eosinophils% 2.8 % (0-5); Hematocrit 40.8 % (37-47); Hemoglobin 13.4 g/dl (12.0-15.0); Lymphocyte # 1.44 X10^3/ul (4.0); Lymphocyte % 23.3 % (19-41); Mean Corp Hgb Conc 32.8 g/gl (32-36); Mean Corpuscular Hgb 30.2 pg (27.0-32.0); Mean Corpuscular Volume 91.9 fL (81-99); Mean Platelet Vol. 9.7 fl (6.2-12.0); Monocyte# 0.56 X10^3/uL; Monocyte% 9.1 % (0-10); Neutrophil # 3.97 X10^3/uL (2.7-7.7); Neutrophil % 64.3 % (47-70); Platelet Count 222 K/mm3 (150-450); RBC Distribution Width CV 12.9 % (11.6-14.6); RBC Distribution Width SD 42.7 fl (35.1-43.9); Red Blood Count 4.44 M/mm3 (4.2-5.4); White Blood Count 6.2 K/mm3 (4.4-11.0)
[2018-07-01 12:57] LABS: POSITIVE COUNT NO; POSITIVE DIFFERENTIAL NO; POSITIVE MORPHOLOGY NO
== END ==
PROVIDERS: Family Provider Nurse Practitioner Adult Health; PCP Nurse Practitioner Adult Health; Referring Provider Internal Medicine Rheumatology; Visit Provider Internal Medicine Rheumatology
DX: M06.4 Inflammatory polyarthropathy (principal); M15.9 Polyosteoarthritis, unspecified; Q66.7 Congenital pes cavus; D69.3 Immune thrombocytopenic purpura; M81.0 Age-related osteoporosis without current pathological fracture; H40.9 Unspecified glaucoma
CPT/HCPCS: 36415; 80053; 85025

== ENCOUNTER → 2019-01-11 16:07 | Outpatient (CLI) | payer MEDICARE, SELFPAY ==
--- NOTE | 2019-01-11 16:16 | MRI_ITS ---
STUDY: MRI RIGHT ANKLE WITHOUT CONTRAST REASON FOR EXAM: Female, 83 years old. Pain. Twisting injury. TECHNIQUE: Standardized fat and water weighted pulse sequences were obtained in all 3 orthogonal planes. COMPARISON: None. FINDINGS: Normal subcutis adipose space. There is mild fluid in the sheath of the posterior tibialis tendon. Normal flexor digitorum longus tendon. Normal flexor hallucis longus tendon. Normal peroneus longus and brevis tendons. Normal tibialis anterior tendon. Normal extensor hallucis longus tendon. Normal extensor digitorum longus tendons. Normal Achilles tendon and teno-osseous insertion. Normal plantar fascia. Normal plantar calcaneal tubercles. Normal intrinsic muscles of the rearfoot. Normal distal tibiofibular syndesmotic ligamentous complex. There is a sprain of the of the anterior talofibular ligament (ATFL), series 4 images /36 and 36. Normal subtalar ligaments and sinus tarsi. Normal deltoid ligamentous complexes. Normal plantar calcaneonavicular (spring) ligament. There is a joint effusion of the tibiotalar articulation with capsular distension. Normal talar dome. Normal subtalar articulations. Normal talonavicular articulation. Normal calcaneocuboid articulation. Normal navicular-cuneiform articulations. MRI/Lower Ext Joint Only (Routine) IMPRESSION: No fracture. No osteochondral injury of the talar dome. Lateral ankle sprain. Mild fluid in the sheath of the tibialis posterior. Electronically Signed: Josh Sears MD at 19:23 EST , Service support ,
== END ==
PROVIDERS: Family Provider Nurse Practitioner Adult Health; PCP Nurse Practitioner Adult Health; Referring Provider Podiatrist; Visit Provider Podiatrist
DX: M84.361D Stress fracture, right tibia, subsequent encounter for fracture with routine healing (principal); M76.9 Unspecified enthesopathy, lower limb, excluding foot; S93.491D Sprain of other ligament of right ankle, subsequent encounter; X58.XXXD Exposure to other specified factors, subsequent encounter; Y93.9 Activity, unspecified; Y92.9 Unspecified place or not applicable; Y99.9 Unspecified external cause status
CPT/HCPCS: 73721

== ENCOUNTER → 2019-01-26 11:26 | Outpatient (CLI) | payer MEDICARE, SELFPAY ==
[2019-01-26 12:50] LABS: Absolute Lymphocyte Count 1.39 X10^3/uL (0.83-4.51); Absolute Neutrophil Count 3.6 X10^3/uL (2.0-7.7); Basophil# 0.03 X10^3/uL; Basophil% 0.5 % (0-1); Eosinophils% 3.5 % (0-5); Hematocrit 40.5 % (37-47); Hemoglobin 13.1 g/dL (12.0-15.0); Lymphocyte # 1.39 X10^3/ul (4.0); Mean Corp Hgb Conc 32.3 g/dL (32-36); Mean Corpuscular Hgb 31.3 pg (27.0-32.0); Mean Corpuscular Volume 96.9 fL (81-99); Mean Platelet Vol. 9.8 fl (6.2-12.0); Monocyte# 0.56 X10^3/uL; Monocyte% 9.7 % (0-10); NRBC Flagged by Analyzer 0 % (0-5); Neutrophil # 3.59 X10^3/uL (2.7-7.7); Platelet Count 205 K/mm3 (150-450); RBC Distribution Width CV 11.9 % (11.6-14.6); RBC Distribution Width SD 42.5 fl (35.1-43.9); Red Blood Count 4.18 M/mm3 (4.2-5.4); White Blood Count 5.8 K/mm3 (4.4-11.0)
[2019-01-26 13:26] LABS: ALB/GLOB Ratio 1.3 RATIO (0.9-2.4); AST(SGOT) 22 U/L (15-37); Alanine Aminotransfer ALT/SGPT 18 U/L (13-56); Albumin, Serum 3.9 g/dL (3.2-5.0); Alkaline Phosphatase 65 U/L (45-117); Anion Gap 4 (5-15); BUN 15 mg/dL (7-18); BUN/Creat Ratio 15.6 RATIO (10-20); Calcium,Total 9.7 mg/dL (8.5-10.1); Chloride 106 mmol/L (98-107); Creatinine, Serum 0.96 mg/dL (0.55-1.02); EST Glomerular Filtration Rate 59 mL/min (>60); Est Glom Filt Rate - Afr Amer 71 mL/min (>60); Globulin 3.1 g/dL (2.2-4.2); Glucose 81 mg/dL (74-106); Sodium Level 142 mmol/L (136-145)
== END ==
PROVIDERS: Family Provider Student in an Organized Health Care Education/Training Program; PCP Student in an Organized Health Care Education/Training Program; Referring Provider Internal Medicine Rheumatology; Visit Provider Internal Medicine Rheumatology
DX: M06.4 Inflammatory polyarthropathy (principal); Q66.70 Congenital pes cavus, unspecified foot; D69.3 Immune thrombocytopenic purpura; M81.0 Age-related osteoporosis without current pathological fracture; H40.9 Unspecified glaucoma; M15.9 Polyosteoarthritis, unspecified
CPT/HCPCS: 36415; 80053; 85025

== ENCOUNTER 2019-04-24 21:05 | Emergency (ER) | payer MEDICARE, SELFPAY ==
[2019-04-24 21:05] VITALS: BP 156/80; PULSE 93; RESP 18; TEMP 36.9; O2SAT 96; BMI 18.7
--- NOTE | 2019-04-24 21:07 | EKG12_ITS ---
Test Reason : CP Blood Pressure : / mmHG Vent. Rate : 082 BPM Atrial Rate : 082 BPM P-R Int : 142 ms QRS Dur : 132 ms QT Int : 416 ms P-R-T Axes : 000 -35 145 degrees QTc Int : 486 ms Normal sinus rhythm Left axis deviation Right bundle branch block T wave abnormality, consider lateral ischemia Abnormal ECG Confirmed by ANGE SINGER ([id number]), editor in chief SAMUEL ISAAC ([id number]) on 04/27/2019 2:02:30 PM Referred By: HANK LERMA Confirmed By:ANGE SINGER
--- NOTE | 2019-04-24 21:25 | RAD_ITS ---
STUDY: X-RAY CHEST REASON FOR EXAM: Female, 83 years old. Chest pain x 2 days TECHNIQUE: Single AP portable view of the chest. COMPARISON: 12/02/2013 FINDINGS: There is hyperinflation of the lungs consistent with chronic obstructive lung disease (COPD). No infiltrates or effusions. There is no demonstrated pleural abnormality. Normal size heart. Normal mediastinum and rickey. Normal visualized pulmonary arteries. Normal visualized aortic arch and descending thoracic aorta. Normal visualized thoracic spine. Normal visualized ribs, clavicles, and shoulders. There is no demonstrated abnormality of the visualized soft tissue structures of the upper abdomen. RAD/Chest 1 View (Portable) IMPRESSION: There are findings consistent with COPD. There is no evidence of acute chest disease. Electronically Signed: Ryan Page MD at 21:46 EST , Service support ,
[2019-04-24 22:10] VITALS: O2SAT 97
--- NOTE | 2019-04-24 22:20 | ED.DCSUM_ITS ---
History of Present Illness Chief Complaint: Chest Pain Narrative: Patient is an 83-year-old female who presents with vague chest discomfort over the last 2 days. She describes this as a brief trickling feeling. This has happened once a day over the last 2 days and lasted about 10 minutes. No shortness of breath. She felt mildly lightheaded tonight. She describes this as feeling as if she turned too fast. It was not near syncope. She states that for a brief time her left arm felt funny. This was not numbness or weakness. No history of prior similar symptoms. Patient denies history of diabetes, hypertension, hyperlipidemia, smoking, family history of coronary disease in a young age. She has no known history of heart disease. Past Medical History - Allergies and Home Meds Allergies/Adverse Reactions: Allergies aspirin Allergy (Severe, Verified 04/24/19 22:04) Hives ibuprofen Allergy (Verified 04/24/19 22:04) Hives Penicillins Adverse Reaction (Verified 04/24/19 22:04) Other I PASS OUT Primary Care Physician: Louis Isaacs DO [Primary Care Provider] - Past Medical History: - - Rheumatoid arthritis Smoking Status: Never smoker Review of Systems All systems negative except as indicated General: Denies: Fever Eyes: Denies: Visual changes - bilaterally ENT: Denies: Bilateral ear pain Cardiovascular: Reports: Chest pain Respiratory: Denies: Dyspnea Gastrointestinal: Denies: Nausea, Vomiting, Diarrhea Skin: Denies: Rash Neurological: Denies: Headache Psych: Denies: Depression Allergy: Denies: Uticaria Physical Exam Vital Signs/Narrative: Vital Signs Temp Pulse Resp BP Pulse Ox 04/24/19 22:10 97 04/24/19 21:05 98.4 F 93 18 156/80 H 96 Inital Vital Signs reviewed: Yes General: Well nourished Head: Normocephalic Eyes: EOMI ENT: Moist mucous membranes Neck: Supple Cardiovascular: Regular rate, Regular rhythm Respiratory: No distress, CTA bilaterally Abdomen: Soft, Nontender Extremities: Nontender, - - Palpable symmetric radial pulses Skin: Normal color Neurological: Alert Psychological: Normal affect Diagnostic/Tx/Re-eval Impressions Chest X-Ray 04/24/19 21:25 IMPRESSION: There are findings consistent with COPD. There is no evidence of acute chest disease. Electronically Signed: Ryan Page MD at 21:46 EST , Service support , 04/24/19 21:25 Chest 1 View (Portable) [RAD] Stat Laboratory Results 04/24/19 04/24/19 22:05 22:05 WBC 5.9 RBC 4.01 L Hgb 12.5 Hct 37.6 MCV 93.8 MCH 31.2 MCHC 33.2 RDW Std Deviation 41.9 RDW Coeff of Katiana 12.0 Plt Count 232 MPV 9.6 Immature Gran % (Auto) 0.300 Neut % (Auto) 60.7 Lymph % (Auto) 23.0 Huron % (Auto) 11.2 H Eos % (Auto) 4.1 Baso % (Auto) 0.7 Absolute Neuts (auto) 3.6 Absolute Lymphs (auto) 1.35 Nucleated RBC % 0 Sodium 143 Potassium 3.9 Chloride 108 H Carbon Dioxide 35.0 H Anion Gap 0 L BUN 19 H Creatinine 1.41 H Estim Creat Clear Calc 25.24 Est GFR (MDRD) Af Amer 46 L Est GFR (MDRD) Non-Af 38 L BUN/Creatinine Ratio 13.5 Glucose 134 H Calcium 9.1 Troponin I < 0.015 - Medical Decision Making Patient is currently symptom free. EKG shows normal sinus rhythm with left axis deviation and a right bundle branch block. Laboratory studies as above. Troponin is negative. Chest x-ray shows no acute process. Patient's heart score is 3. Her symptoms and presentation are atypical. Therefore I do feel she is appropriate for outpatient follow-up. However she understands to return for new or worsening symptoms and was instructed on specific signs and symptoms to monitor for. ED Disposition - Plan for ED Patient: Disposition: Home or Assisted Living Diagnosis: Chest pain Instructions: CHEST PAIN, Uncertain Cause Referrals: Louis Isaacs DO [Primary Care Provider] -
[2019-04-24 22:27] LABS: Absolute Lymphocyte Count 1.35 X10^3/uL (0.83-4.51); Absolute Neutrophil Count 3.6 X10^3/uL (2.0-7.7); Basophil# 0.04 X10^3/uL; Basophil% 0.7 % (0-1); Eosinophil# 0.24 X10^3/uL; Eosinophils% 4.1 % (0-5); Hematocrit 37.6 % (37-47); Hemoglobin 12.5 g/dL (12.0-15.0); Lymphocyte # 1.35 X10^3/ul (4.0); Mean Corp Hgb Conc 33.2 g/dL (32-36); Mean Corpuscular Hgb 31.2 pg (27.0-32.0); Mean Corpuscular Volume 93.8 fL (81-99); Mean Platelet Vol. 9.6 fl (6.2-12.0); Monocyte# 0.66 X10^3/uL; Monocyte% 11.2 % (0-10); NRBC Flagged by Analyzer 0 % (0-5); Neutrophil # 3.56 X10^3/uL (2.7-7.7); Neutrophil % 60.7 % (47-70); Platelet Count 232 K/mm3 (150-450); RBC Distribution Width SD 41.9 fl (35.1-43.9); Red Blood Count 4.01 M/mm3 (4.2-5.4); White Blood Count 5.9 K/mm3 (4.4-11.0)
[2019-04-24 22:41] LABS: Anion Gap 0 (5-15); BUN 19 mg/dL (7-18); BUN/Creat Ratio 13.5 RATIO (10-20); Calcium,Total 9.1 mg/dL (8.5-10.1); Chloride 108 mmol/L (98-107); Creatinine, Serum 1.41 mg/dL (0.55-1.02); EST Glomerular Filtration Rate 38 mL/min (>60); Est Glom Filt Rate - Afr Amer 46 mL/min (>60); Estimated Creatinine Clearance 25.24 ml/min; Glucose 134 mg/dL (74-106); Potassium 3.9 mmol/L (3.5-5.1); Sodium Level 143 mmol/L (136-145)
[2019-04-24 23:44] VITALS: BP 142/60; PULSE 81; RESP 16; O2SAT 98
== END 2019-04-24 23:44 | disposition home or self-care (01) ==
PROVIDERS: Emergency Provider Emergency Medicine; PCP Student in an Organized Health Care Education/Training Program
DX: R07.9 Chest pain, unspecified (principal); R42 Dizziness and giddiness; M06.9 Rheumatoid arthritis, unspecified; Z79.899 Other long term (current) drug therapy; Z88.0 Allergy status to penicillin
CPT/HCPCS: 71045; 80048; 84484; 85025; 93005; 99284

== ENCOUNTER → 2019-07-13 09:51 | Outpatient (CLI) | payer MEDICARE, SELFPAY ==
[2019-07-13 12:04] LABS: Absolute Lymphocyte Count 1.29 X10^3/uL (0.83-4.51); Absolute Neutrophil Count 3.6 X10^3/uL (2.0-7.7); Basophil# 0.03 X10^3/uL; Basophil% 0.5 % (0-1); Eosinophil# 0.16 X10^3/uL; Eosinophils% 2.9 % (0-5); Hematocrit 40.3 % (37-47); Hemoglobin 13.2 g/dL (12.0-15.0); Lymphocyte # 1.29 X10^3/ul (4.0); Lymphocyte % 23.2 % (19-41); Mean Corp Hgb Conc 32.8 g/dL (32-36); Mean Corpuscular Hgb 31.6 pg (27.0-32.0); Mean Corpuscular Volume 96.4 fL (81-99); Mean Platelet Vol. 10.1 fl (6.2-12.0); Monocyte# 0.49 X10^3/uL; Monocyte% 8.8 % (0-10); NRBC Flagged by Analyzer 0 % (0-5); Neutrophil # 3.57 X10^3/uL (2.7-7.7); Neutrophil % 64.2 % (47-70); Platelet Count 192 K/mm3 (150-450); RBC Distribution Width CV 12.2 % (11.6-14.6); Red Blood Count 4.18 M/mm3 (4.2-5.4); White Blood Count 5.6 K/mm3 (4.4-11.0)
[2019-07-13 12:19] LABS: ALB/GLOB Ratio 1.1 RATIO (0.9-2.4); AST(SGOT) 21 U/L (15-37); Alanine Aminotransfer ALT/SGPT 16 U/L (13-56); Albumin, Serum 3.9 g/dL (3.2-5.0); Alkaline Phosphatase 67 U/L (45-117); Anion Gap 7 (5-15); BUN 17 mg/dL (7-18); BUN/Creat Ratio 14.9 RATIO (10-20); Calcium,Total 9.2 mg/dL (8.5-10.1); Chloride 104 mmol/L (98-107); Creatinine, Serum 1.14 mg/dL (0.55-1.02); EST Glomerular Filtration Rate 49 mL/min (>60); Est Glom Filt Rate - Afr Amer 59 mL/min (>60); Globulin 3.4 g/dL (2.2-4.2); Glucose 88 mg/dL (74-106); Potassium 4.1 mmol/L (3.5-5.1); Protein, Total 7.3 g/dL (6.4-8.2); Sodium Level 142 mmol/L (136-145)
== END ==
PROVIDERS: PCP Student in an Organized Health Care Education/Training Program; Referring Provider Internal Medicine Rheumatology; Visit Provider Internal Medicine Rheumatology
DX: M06.4 Inflammatory polyarthropathy (principal); M15.9 Polyosteoarthritis, unspecified; Q66.70 Congenital pes cavus, unspecified foot; D69.3 Immune thrombocytopenic purpura; M81.0 Age-related osteoporosis without current pathological fracture; H40.9 Unspecified glaucoma
CPT/HCPCS: 36415; 80053; 85025

== ENCOUNTER → 2020-01-10 09:49 | Outpatient (CLI) | payer MEDICARE, SELFPAY ==
[2020-01-10 12:25] LABS: Absolute Lymphocyte Count 1.17 X10^3/uL (0.83-4.51); Absolute Neutrophil Count 3.5 X10^3/uL (2.0-7.7); Basophil# 0.03 X10^3/uL; Basophil% 0.6 % (0-1); Eosinophil# 0.13 X10^3/uL; Eosinophils% 2.5 % (0-5); Hematocrit 42.2 % (37-47); Hemoglobin 13.4 g/dL (12.0-15.0); Lymphocyte # 1.17 X10^3/ul (4.0); Lymphocyte % 22.4 % (19-41); Mean Corp Hgb Conc 31.8 g/dL (32-36); Mean Corpuscular Hgb 30.9 pg (27.0-32.0); Mean Corpuscular Volume 97.5 fL (81-99); Mean Platelet Vol. 10.2 fl (6.2-12.0); Monocyte# 0.43 X10^3/uL; Monocyte% 8.2 % (0-10); NRBC Flagged by Analyzer 0 % (0-5); Neutrophil # 3.45 X10^3/uL (2.7-7.7); Neutrophil % 66.1 % (47-70); Platelet Count 208 K/mm3 (150-450); RBC Distribution Width CV 11.9 % (11.6-14.6); RBC Distribution Width SD 43.3 fl (35.1-43.9); Red Blood Count 4.33 M/mm3 (4.2-5.4); White Blood Count 5.2 K/mm3 (4.4-11.0)
[2020-01-10 13:10] LABS: ALB/GLOB Ratio 1.2 RATIO (0.9-2.4); AST(SGOT) 16 U/L (15-37); Alanine Aminotransfer ALT/SGPT 17 U/L (13-56); Albumin, Serum 3.8 g/dL (3.2-5.0); Alkaline Phosphatase 68 U/L (45-117); Anion Gap 2 (5-15); BUN 15 mg/dL (7-18); BUN/Creat Ratio 12.9 RATIO (10-20); Calcium,Total 9.6 mg/dL (8.5-10.1); Chloride 107 mmol/L (98-107); Creatinine, Serum 1.16 mg/dL (0.55-1.02); EST Glomerular Filtration Rate 48 mL/min (>60); Est Glom Filt Rate - Afr Amer 57 mL/min (>60); Globulin 3.3 g/dL (2.2-4.2); Glucose 84 mg/dL (74-106); Potassium 4.3 mmol/L (3.5-5.1); Protein, Total 7.1 g/dL (6.4-8.2); Sodium Level 142 mmol/L (136-145)
== END ==
PROVIDERS: PCP Student in an Organized Health Care Education/Training Program; Referring Provider Internal Medicine Rheumatology; Visit Provider Internal Medicine Rheumatology
DX: M06.4 Inflammatory polyarthropathy (principal); M15.9 Polyosteoarthritis, unspecified; Q66.70 Congenital pes cavus, unspecified foot; D69.3 Immune thrombocytopenic purpura; M81.0 Age-related osteoporosis without current pathological fracture; H40.9 Unspecified glaucoma
CPT/HCPCS: 36415; 80053; 85025

== ENCOUNTER → 2020-06-27 13:58 | Outpatient (CLI) | payer MEDICARE, SELFPAY ==
[2020-06-26 13:10] VITALS: BMI 18.4
[2020-06-27 15:01] LABS: Absolute Lymphocyte Count 1.31 X10^3/uL (0.83-4.51); Basophil# 0.03 X10^3/uL; Basophil% 0.6 % (0-1); Eosinophil# 0.16 X10^3/uL; Eosinophils% 3.2 % (0-5); Hematocrit 40.9 % (37-47); Hemoglobin 13.2 g/dL (12.0-15.0); Lymphocyte # 1.31 X10^3/ul (0.83-4.51); Lymphocyte % 26.1 % (19-41); Mean Corp Hgb Conc 32.3 g/dL (32-36); Mean Corpuscular Hgb 31.1 pg (27.0-32.0); Mean Corpuscular Volume 96.2 fL (81-99); Mean Platelet Vol. 9.7 fl (6.2-12.0); Monocyte# 0.47 X10^3/uL; Monocyte% 9.4 % (0-10); NRBC Flagged by Analyzer 0 % (0-5); Neutrophil # 3.03 X10^3/uL (2.7-7.7); Neutrophil % 60.5 % (47-70); Platelet Count 219 K/mm3 (150-450); RBC Distribution Width CV 12.2 % (11.6-14.6); RBC Distribution Width SD 42.8 fl (35.1-43.9); Red Blood Count 4.25 M/mm3 (4.2-5.4)
[2020-06-27 15:30] LABS: ALB/GLOB Ratio 1.3 RATIO (0.9-2.4); AST(SGOT) 19 U/L (15-37); Alanine Aminotransfer ALT/SGPT 19 U/L (13-56); Albumin, Serum 3.9 g/dL (3.2-5.0); Alkaline Phosphatase 72 U/L (45-117); Anion Gap 5 (5-15); BUN 16 mg/dL (7-18); BUN/Creat Ratio 15.7 RATIO (10-20); Calcium,Total 9.1 mg/dL (8.5-10.1); Chloride 105 mmol/L (98-107); Creatinine, Serum 1.02 mg/dL (0.55-1.02); EST Glomerular Filtration Rate 55 mL/min (>60); Est Glom Filt Rate - Afr Amer 67 mL/min (>60); Globulin 3.1 g/dL (2.2-4.2); Glucose 137 mg/dL (74-106); Potassium 3.7 mmol/L (3.5-5.1); Sodium Level 141 mmol/L (136-145)
== END ==
PROVIDERS: PCP Student in an Organized Health Care Education/Training Program; Referring Provider Internal Medicine Rheumatology; Visit Provider Internal Medicine Rheumatology
DX: M06.4 Inflammatory polyarthropathy (principal); M15.9 Polyosteoarthritis, unspecified; Q66.70 Congenital pes cavus, unspecified foot; D69.3 Immune thrombocytopenic purpura; M81.0 Age-related osteoporosis without current pathological fracture; H40.9 Unspecified glaucoma
CPT/HCPCS: 36415; 80053; 85025

== ENCOUNTER 2020-09-15 05:19 | Day surgery (SDC) | payer MEDICARE, SELFPAY ==
[2020-06-26 13:10] VITALS: BMI 18.4
[2020-09-15] VITALS (22 sets, daily range): BP systolic 90–206; BP diastolic 43–85; PULSE 58–79; RESP 12–19; TEMP 36.3–36.7; O2SAT 90–100; BMI 18.8
--- NOTE | 2020-09-15 05:46 | HP.PCM_ITS ---
History and Physical Date of Admission: 09/15/20 Intake Visit Reasons: CSCOPE, EGD Chief Complaint: c-scope/egd Stator Plate Washer Required: No Is patient in pain?: No Allergies aspirin Allergy (Severe, Verified 06/26/20 13:10) Hives ibuprofen Allergy (Verified 06/26/20 13:10) Hives Penicillins Adverse Reaction (Verified 06/26/20 13:10) Other Medications Bimatoprost [Lumigan Opthalmic] 1 drp EACH EYE QHS 06/05/13 [History Confirmed 04/24/19] Calcium (Elemental) [Os-Jose A 500] 500 mg PO DAILY@0800 06/05/13 [History Confirmed 04/24/19] Multivitamins,Therapeutic [Multivitamin] 1 tablet PO DAILY 09/30/13 [History Confirmed 04/24/19] Alendronate Sodium 35 mg PO CASTILLO 04/24/19 [History Confirmed 04/24/19] Cholecalciferol (VIT D3) [Vitamin D] 1,000 unit PO DAILY 04/24/19 [History Confirmed 04/24/19] Hydroxychloroquine [Plaquenil] 300 mg PO DAILYCM 04/24/19 [History Confirmed 04/24/19] biotin 2,500 mcg capsule 2,500 mcg PO DAILY 06/26/20 [History Confirmed 06/26/20] PFSH Medical History Rheumatoid arthritis (Acute) Surgical History Status post laparoscopic Warren fundoplication (Acute) Social History (Updated 06/26/20 @ 13:[address] Jesus Manuel Coronado MD) Smoking Status: Never smoker alcohol intake: never HPI: Jaye MARTINEZ, is a 85 F who presents to the office today for surgical consultation regarding 2 separate issues. She has been referred by Lubna Geiger CNP for surgical consultation regarding esophageal dysphagia with pills getting stuck and a personal history of a large hiatal hernia with surgical repair. She also has a family history of colon cancer in her father. Her most recent colonoscopy was 2013. Fortunately she denies bright red blood per rectum or melena. She has not had COVID-19. She has received both doses of the vaccination. She notes a very remote history of a right lower extremity DVT 40 years ago. She is not on any anticoagulants. She otherwise remains active and healthy. No abdominal pain. No unexpected weight loss. She states that intermittently she will have a change of bowel habits to where she has very loose almost uncontrollable running stools. This is of concern for her.. She has a family history of colon cancer in her father. She has a need for colonoscopy as well. ROS General General: No weight change, appetite, fatigue, colon cancer, breast cancer or weakness HEENT HEENT: Yes difficulty swallowing; no eye injury, eye surgery, swollen glands or hoarseness Endo Endocrine: No thyroid disease, diabetes mellitus, thyroid cancer, Hair loss, heat intolerance or cold intolerance Skin Skin: No rash or changing moles Breast Breast: No left breast lump, right breast lump, nipple discharge, breast pain, abnormal mammogram, abnormal US or breast enlargement Musc Musculoskeletal: Yes rheumatoid arthritis; no back problems, arthritis, gout or joint pain Cardio Cardiovascular: No murmur, pacemaker, heart disease, atrial fibrillation, high blood pressure, heart attack, heart stent, palpitations, shortness of breat with exertion or chest pain Psych Psychiatric: No depression, anxiety or hearing voices Resp Respiratory: No shortness of breath, No sleep apnea, No cough, No COPD, No asthma, No emphysema, No wheezing Gastro Gastrointestinal: No abdominal pain, No nausea or vomiting, Yes diarrhea, No constipation, No blood in stool, No acid reflux, No hemorrhoids, No ulcers, No gallbladder problem, No black,tarry stools Ashu Hematologic: No blood thinners, No blood disorders, No bleeding, No anemia, No blood clots Neuro Neurologic: No system reviewed and no additional complaints, except as docu, No as per HPI, No abnormal walking, No abnormal hearing, No abnormal movements, No abnormal speech, No behavioral changes, No burning sensations, No confusion, No seizure-like activity, No unsteadiness, No dizziness, No localized weakness, No frequent falls, No headache(s), No lack of coordination, No loss of vision, No memory loss, No numbness, No other visual disturbances, No radiating pain, No restless legs, No sensory deficit, No fainting, No tingling, No tremor(s), No weakness, No other Exam Const General: cooperative, comfortable, no acute distress Nutritional Appearance: underweight Orientation: alert, awake, oriented x3 HENMT Head: normal to inspection Eyes General: appearance normal, both eyes and all related structures Chest Chest palpation & inspection: normal inspection of the chest Breast Palpation: No nipple discharge Resp Effort & Inspection: normal respiratory effort Auscultation: clear to auscultation bilaterally Cardio Rate: regular rate Rhythm: regular rhythm Heart Sounds: no murmurs GI Palpation: soft, no hepatosplenomegaly Skin General: no rashes or lesions noted Neuro Cognition: normal cognition Extrem General: no calf tenderness Psych Affect: normal affect Assessment & Plan Problems 1. Esophageal dysphagia R13.10 2. Family history of malignant neoplasm of colon in father Z80.0 Plan Ongoing concerns about escalating esophageal dysphagia. Pills get caught at her esophageal inlet causing her to be short of breath. It does not seem to matter whether she splits the pills or takes them with food. She has not yet been seen by ear nose and throat. She has not yet had a cookie swallow examination. But she has had a previous surgical repair of a large sliding hiatal hernia. It is unclear whether this could be contributory. She states that the pills then take a very long time to transit. She also has a family history of colon cancer in her father. She denies known history of colon polyps or colon cancer. She currently has no acute symptoms. I recommended the patient had a combined esophagogastroduodenoscopy with possible biopsy and colonoscopy with possible biopsy or polypectomy as indicated. She is aware of the technique, benefit, risk, alternatives. She has had an opportunity to ask and have questions answered. We will schedule and proceed at her discretion. The patient was seen in the office in June 2020. Not clear today as to the etiology of her scheduling delay. She has no specific new or different concerns today. She states that she tolerated the bowel prep adequately. We will proceed as noted. Copy: Lubna Geiger CNP and Dr. Louis Coronado M.D., F.A.C.S. Coding Level of Care Code 83279 Diagnoses Esophageal dysphagia R13.10 Family history of malignant neoplasm of colon in father Z80.0
[2020-09-15] MEDS: Lactated Ringers 1,000 ML 100 ML IV ×2 (06:05→09:48)
--- NOTE | 2020-09-15 06:30 | COLBX_PTH ---
PATIENT: Jaye MARTINEZ LOC: EN U#:[id number] AGE/SX: 85/F ROOM: RE09/15/[address]: Dr. Jesus Manuel Coronado MD : 1935 BED: DIS: 09/15/2020 SPEC #: [id number] RECD: 09/15/20 11:38 STATUS: NICK BERNADINE #: [id number] JAGUAR: 09/15/20 06:[address]: Jesus Manuel Coronado DEPT: SURGICAL PATHOLOGY RECD BY: Gypsy Pearson ENTERED: 09/15/20 13:02 SP TYPE: COLON BX OTHR DR: Dr. Louis Isaacs DO Tissues: A - Gastric mucous membrane B - Esophagus, NOS C - Esophagus, NOS COLON BIOPSY Procedures: Special Stain Group II Surgery Specimen Level IV Alcian Blue/PAS (control) HEADER OPERATION: Colonoscopy, EGD (MOD) PRE-OP DIAGNOSIS: Esophageal dysphagia; family history of malignant neoplasm of colon TISSUE SUBMITTED: A - Antrum biopsy, path and H. pylori, B - Distal esophagus, C - Mid esophagus, D - Colonic biopsy MICROSCOPIC DIAGNOSIS A. Antrum, biopsy: Mild gastritis. See microscopic description and comment. B. Distal esophagus, biopsy: Fragments of gastroesophageal mucosa with chronic inflammation. Intestinal metaplasia (goblet cell metaplasia) is not identified. See comment. C. Mid esophagus, biopsy: Fragments of squamous mucosa, no pathologic diagnosis. D. Colonic biopsy: Fragments of colonic mucosa, no pathologic diagnosis. SJ:cesar 09/18/2020 COMMENT A. The results of immunohistochemistry for Helicobacter pylori will be reported separately ([id number]). B. Alcian blue/PAS stain with matched control is used in the evaluation of the specimen. MICROSCOPIC DESCRIPTION Slides are reviewed. A. The specimen shows fragments of gastric mucosa with chronic inflammatory cell infiltrates in the lamina propria consisting of lymphocytes and plasma cells, consistent with mild chronic gastritis. GROSS DESCRIPTION A - Received in fixative is one container labeled with the patient's name and designated antrum biopsy. The specimen consists of one irregular fragment of light hernandez soft tissue that measures 0.4 x 0.2 x 0.1 cm. The specimen is totally submitted in one cassette. B - Received in fixative is one container labeled with the patient's name and designated distal esophagus. The specimen consists of multiple irregular fragments of light hernandez soft tissue that in aggregate measure 1 x 0.5 x 0.1 cm. The specimen is totally submitted in one cassette. C - Received in fixative is one container labeled with the patient's name and designated mid esophagus. The specimen consists of multiple irregular fragments of light hernandez soft tissue that in aggregate measure 1.5 x 0.4 x 0.1 cm. The specimen is totally submitted in one cassette. D - Received in fixative is one container labeled with the patient's name and designated colon biopsy. The specimen consists of multiple irregular fragments of light hernandez soft tissue that in aggregate measure 1.2 x 0.3 x 0.1 cm. The specimen is totally submitted in one cassette. / SJ:rg 09/15/20 TC:3 CPT: 65095 x4, 02941
--- NOTE | 2020-09-15 06:30 | IMM_PTH ---
PATIENT: Jaye MARTINEZ LOC: EN U#:[id number] AGE/SX: 85/F ROOM: RE09/15/[address]: Dr. Jesus Manuel Coronado MD : 1935 BED: DIS: 09/15/2020 SPEC #: [id number] RECD: 09/15/20 14:17 STATUS: NICK REQ #: [id number] JAGUAR: 09/15/20 06:[address]: Jesus Manuel Coronado DEPT: IMMUNOHISTOCHEMISTRY RECD BY: Gertrude Johnson ENTERED: 09/15/20 14:18 SP TYPE: IMMUNO OTHR DR: Dr. Louis Isaacs, DO Tissues: A - Stomach, NOS Procedures: H Pylori (initial) PHYSICIAN & INSTITUTION [place] [id number] SPECIMEN INFORMATION: Tissue Source: A ? Antrum biopsy Clinical Info: Esophageal dysphagia; family history malignant colon neoplasm Specimen Number: [id number] CPT code: 89281 METHODOLOGY: Deparaffinized sections of prefer/formalin-fixed tissue or PAP/DQ stained slides are incubated with monoclonal/polyclonal antibodies/oligonucleotide probes. Localization is made via biotin free immunoperoxidase method. Appropriate controls are performed and reacted as expected. Results on target cell population are indicated in the following table: RESULTS: ANTIBODY / CLONE RESULT Block A H Pylori (polyclonal) negative These tests were developed and their performance characteristics determined by [facility]. They may not have been cleared or approved by the U.S. Food and Drug Administration. The FDA has determined that such clearance or approval is not necessary. INTERPRETATION: A. Antrum biopsy: Negative for Helicobacter pylori organisms. SJ:cesar 09/18/2020
--- NOTE | 2020-09-15 07:01 | PCM.PN.BLA ---
Progress Note 85-year-old female was taken to the procedure room. Timeout and informed consent was obtained. Demerol 50 mg and Versed 1.5 mg were given as intravenous sedation. It then became apparent that the IV that is been placed in the ambulatory surgery area was bad and that the medication had gone into the subcutaneous tissue. An IV was restarted in the endoscopy suite. I was instructed that I was cleared to proceed. An additional 50 mg of Demerol and 1.5 mg of Versed were given intravenously. It then became apparent that this IV also had infiltrated and the medication had gone into the subcutaneous tissue. At this point I postpone the procedure and recommended that the patient be taken to the recovery room for observation while awaiting accurate placement of an IV. I have discussed the patient with Dr. Edwardo Polanco anesthesiologist. At this point I no longer feel comfortable trying to proceed with IV sedation. Anesthesia is willing to consult on the patient and provide monitored anesthesia care. We will attempt adding her back into the schedule later today when a solid IV and anesthesia consultation can be achieved. Jesus Manuel Coronado M.D., F.A.C.S.
--- NOTE | 2020-09-15 07:26 | SUR.PHASEI ---
ASSUMED CARE OF PT, HOOKED TO MONITOR AT THIS TIME PT VERY GROGGY AND SLOW TO RESPOND, PER REPORT ENDO PROCEDURE ABORTED D/T IV SITE INFILTRATED. VS CHARTED, 02 APPLIED, DR LAKHANI TO BEDSIDE BUT PT NOT RESPONDING VERBALLY. EYES FLUTTER WHEN STIMULATED.
--- NOTE | 2020-09-15 07:52 | SUR.PHASEI ---
JOLANTA MAYA RN TOOK PT BACK TO ENDO PROCEDURE AT THIS TIME. PT STILL MIMIMALLY RESPONSIVE. RFA IV SITE EDEMATOUS AND PINK. IV OUT. IV SITE TO TO LFA AND LAC VERIFIED WITH GOOD BLOOD RETURN.
--- NOTE | 2020-09-15 08:35 | SUR.PHASEI ---
PER DR MUIR AT BEDSIDE, PT IS TO MONITORED IN PACU UNTIL COMPLETELY ALERT AND AWAKE FOR AT LEAST HOUR TIME.
--- NOTE | 2020-09-15 08:37 | OP.EGD_ITS ---
Patient Name: Jaye Carmen Procedure Date: 09/15/2020 7:52 AM Date of : 1935 Age: 85 Procedure: Upper GI endoscopy Indications: Dysphagia Providers: Jesus Manuel Coronado MD Referring MD: Jesus Manuel Coronado MD Medicines: See the Anesthesia note for documentation of the administered medications Complications: No immediate complications. Procedure: Pre-Anesthesia Assessment: - Prior to the procedure, a History and Physical was performed, and patient medications and allergies were reviewed. The patient's tolerance of previous anesthesia was also reviewed. The risks and benefits of the procedure and the sedation options and risks were discussed with the patient. All questions were answered, and informed consent was obtained. Prior Anticoagulants: The patient has taken no previous anticoagulant or antiplatelet agents. ASA Grade Assessment: III - A patient with severe systemic disease. After reviewing the risks and benefits, the patient was deemed in satisfactory condition to undergo the procedure. After obtaining informed consent, the endoscope was passed under direct vision. Throughout the procedure, the patient's blood pressure, pulse, and oxygen saturations were monitored continuously. The gastroscope was introduced through the mouth, and advanced to the second part of duodenum. The upper GI endoscopy was accomplished without difficulty. The patient tolerated the procedure well. 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 The maximum longitudinal extent of these mucosal changes was 2 cm in length. Mucosa was biopsied with a cold forceps for histology in a targeted manner in the lower third of the esophagus. The Z-line was irregular and was found 39 cm from the incisors. Evidence of a Warren fundoplication was found in the gastric fundus. The wrap appeared intact. Diffuse mildly erythematous mucosa without bleeding was found in the gastric antrum. Biopsies were taken with a cold forceps for histology. The examined duodenum was normal. The middle third of the esophagus was normal. Biopsies were taken with a cold forceps for histology. 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 Biopsied. - Z-line irregular, 39 cm from the incisors. - A Warren fundoplication was found. The wrap appears intact. - Erythematous mucosa in the antrum. Biopsied. - Normal examined duodenum. Recommendation: - Discharge patient to home. - Resume previous diet. - Continue present medications. - Telephone my office for pathology results in 1 week. Procedure Code(s): --- Professional --- 31821, Esophagogastroduodenoscopy, flexible, transoral; with biopsy, single or multiple Diagnosis Code(s): --- Professional --- K22.8, Other specified diseases of esophagus Z98.890, Other specified postprocedural states K31.89, Other diseases of stomach and duodenum R13.10, Dysphagia, unspecified CPT copyright 2017 [employer]. All rights reserved. The codes documented in this report are preliminary and upon relief mate review may be revised to meet current compliance requirements. Jesus Manuel Coronado MD 09/15/2020 8:37:51 AM This report has been signed electronically. Number of Addenda: 0 Note Initiated On: 09/15/2020 7:52 AM
--- NOTE | 2020-09-15 08:38 | OP.CCLET_ITS ---
09/15/2020 Louis Isaacs [address] [place] [address] Re : Upper GI endoscopy procedure for Jaye [facility] Dear Dr. Isaacs This procedure was performed on Tuesday, September 15, 2020. 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 Biopsied. - Z-line irregular, 39 cm from the incisors. - A Warren fundoplication was found. The wrap appears intact. - Erythematous mucosa in the antrum. Biopsied. - Normal examined duodenum. Recommendations : - Discharge patient to home. - Resume previous diet. - Continue present medications. - Telephone my office for pathology results in 1 week. My findings are described in the full procedure note, which is enclosed. If I can be of further assistance, please feel free to contact me at Doctor phone number(s): Work: . Sincerely, Jesus Manuel Coronado MD 09/15/2020 8:37:51 AM This report has been signed electronically.
--- NOTE | 2020-09-15 08:42 | OP.COLON_ITS ---
Patient Name: Jaye Carmen Procedure Date: 09/15/2020 8:11 AM Date of : 1935 Age: 85 Procedure: Colonoscopy Indications: Clinically significant diarrhea of unexplained origin Providers: Jesus Manuel Coronado MD Referring MD: Jesus Manuel Coronado MD Medicines: See the Anesthesia note for documentation of the administered medications Patient Profile: Last Colonoscopy: 2013. Complications: No immediate complications. Procedure: Pre-Anesthesia Assessment: - Prior to the procedure, a History and Physical was performed, and patient medications and allergies were reviewed. The patient's tolerance of previous anesthesia was also reviewed. The risks and benefits of the procedure and the sedation options and risks were discussed with the patient. All questions were answered, and informed consent was obtained. Prior Anticoagulants: The patient has taken no previous anticoagulant or antiplatelet agents. ASA Grade Assessment: III - A patient with severe systemic disease. After reviewing the risks and benefits, the patient was deemed in satisfactory condition to undergo the procedure. After I obtained informed consent, the scope was passed under direct vision. Throughout the procedure, the patient's blood pressure, pulse, and oxygen saturations were monitored continuously. The Colonoscope was introduced through the anus and advanced to the cecum, identified by appendiceal orifice and ileocecal valve. The colonoscopy was performed without difficulty. The patient tolerated the procedure well. The quality of the bowel preparation was adequate to identify polyps. The ileocecal valve and the appendiceal orifice were photographed. Scope In: 8:13:27 AM Scope Withdrawal Time 0 hours 6 minutes 28 seconds Scope Out: 8:29:48 AM Total Procedure Duration Time 0 hours 16 minutes 21 seconds Findings: Hemorrhoids were found on perianal exam. Multiple diverticula were found in the sigmoid colon and descending colon. Biopsies for histology were taken with a cold forceps from the entire colon for evaluation of microscopic colitis. Impression: - Hemorrhoids found on perianal exam. - Diverticulosis in the sigmoid colon and in the descending colon. - Biopsies were taken with a cold forceps from the entire colon for evaluation of microscopic colitis. Recommendation: - Discharge patient to home. - Resume previous diet. - Continue present medications. - Repeat colonoscopy is not recommended due to current age (66 years or older) for screening purposes. - Telephone my office for pathology results in 1 week. Procedure Code(s): --- Professional --- 92259, Colonoscopy, flexible; with biopsy, single or multiple Diagnosis Code(s): --- Professional --- K64.9, Unspecified hemorrhoids R19.7, Diarrhea, unspecified K57.30, Diverticulosis of large intestine without perforation or abscess without bleeding CPT copyright 2017 [employer]. All rights reserved. The codes documented in this report are preliminary and upon supervisor bindery review may be revised to meet current compliance requirements. Jesus Manuel Coronado MD 09/15/2020 8:41:55 AM This report has been signed electronically. Number of Addenda: 0 Note Initiated On: 09/15/2020 8:11 AM
--- NOTE | 2020-09-15 08:43 | OP.CCLET_ITS ---
09/15/2020 Louis Isaacs [address] [place] [address] Re : Colonoscopy procedure for [facility] Dear Dr. Isaacs This procedure was performed on Tuesday, September 15, 2020. My impressions and recommendations are as follows: Impressions : - Hemorrhoids found on perianal exam. - Diverticulosis in the sigmoid colon and in the descending colon. - Biopsies were taken with a cold forceps from the entire colon for evaluation of microscopic colitis. Recommendations : - Discharge patient to home. - Resume previous diet. - Continue present medications. - Repeat colonoscopy is not recommended due to current age (66 years or older) for screening purposes. - Telephone my office for pathology results in 1 week. My findings are described in the full procedure note, which is enclosed. If I can be of further assistance, please feel free to contact me at Doctor phone number(s): Work: . Sincerely, Jesus Manuel Coronado MD 09/15/2020 8:41:55 AM This report has been signed electronically.
--- NOTE | 2020-09-15 09:50 | SUR.PHASEI ---
PT AROUSED MORE WHEN OBTAINING VS ROLLED OVER TO BACK ANSWERING QUESTIONS APPROP. TAKING ICE CHIPS
== END 2020-09-15 12:38 | disposition home or self-care (01) ==
LOC: EN 05:20 → AC 05:21
PROVIDERS: PCP Student in an Organized Health Care Education/Training Program; Referring Provider Surgery; Visit Provider Surgery
PROC: 0DJD8ZZ Inspection of Lower Intestinal Tract, Via Natural or Artificial Opening Endoscopic (ICD-10-PCS; CPT 45378; principal; 2020-09-15 06:25)
DX: K57.30 Diverticulosis of large intestine without perforation or abscess without bleeding (principal); K29.50 Unspecified chronic gastritis without bleeding; R13.14 Dysphagia, pharyngoesophageal phase; K31.89 Other diseases of stomach and duodenum; K22.8 Other specified diseases of esophagus; K64.9 Unspecified hemorrhoids; M06.9 Rheumatoid arthritis, unspecified; E78.00 Pure hypercholesterolemia, unspecified; K21.9 Gastro-esophageal reflux disease without esophagitis; R63.6 Underweight; Z68.1 Body mass index [BMI] 19.9 or less, adult; Z98.890 Other specified postprocedural states; Z85.6 Personal history of leukemia; Z86.718 Personal history of other venous thrombosis and embolism; Z80.0 Family history of malignant neoplasm of digestive organs
CPT/HCPCS: 43239; 45380; 88305; 88313; 88342; 99152; 99153; J7120; A4216; J2405

== ENCOUNTER 2020-09-17 08:14 | Emergency (ER) | payer MEDICARE, SELFPAY ==
[2020-09-15 05:45] VITALS: BMI 18.8
[2020-09-17 08:14] VITALS: BP 125/79; PULSE 90; RESP 18; TEMP 36.8; O2SAT 97; BMI 17.4
--- NOTE | 2020-09-17 08:33 | RAD_ITS ---
STUDY: X-RAY - LEFT FOOT CLINICAL: Female, 85 years old. Injury/Pain TECHNIQUE: 3 view(s) of the foot. COMPARISON: None. FINDINGS: There is demineralization of the rear and midfoot bones. Normal visualized subtalar, talonavicular, calcaneocuboid, tarsal and tarsometatarsal articulations. There is demineralization of the metatarsi. Normal metatarsophalangeal joint of the great toe. Normal tibial and fibular sesamoid bones. Normal interphalangeal joint of the great toe. Normal phalanges of the great toe. Normal second through fifth metatarsophalangeal joints. Normal interphalangeal joints and phalanges of the lesser toes. The soft tissue structures are unremarkable. RAD/Foot min 3 Views IMPRESSION: Osteopenia. No visualized acute fracture. Electronically Signed: Cara Lazaro MD at 9:27 EDT Tel , Service support ,
--- NOTE | 2020-09-17 08:34 | EDS_ITS ---
HPI History of Present Illness Chief Complaint: Fall Informant: patient Onset/Context/Timing Onset: Yesterday Narrative Narrative: Patient is an 85-year-old female with history of rheumatoid arthritis presenting with left ankle/foot pain and swelling. Patient states she was getting out of her recliner last night around 11 PM to go to bed when she rolled her left ankle and then fell. She not hit her head. She did scrape up her left forearm try to catch herself. She went to bed when she woke up this morning and started putting weight on her foot she had pain. She knows if she is just sitting there she does not have any pain. She states she came in just to make sure nothing was broken and to see what was wrong with her foot. She has increased pain and bruising on the lateral aspect of her left foot. She not hit her head. She is not on any anticoagulation. She denies any other injuries or complaints at this time. Patient lives home alone. She does not use any assistive devices for ambulation at baseline. [facility] Medical History Anemia Back pain DVT (deep venous thrombosis) Easy bruising Esophageal dysphagia Family history of malignant neoplasm of colon in father Gastric reflux High cholesterol History of leukemia History of pain when walking Non-smoker Rheumatoid arthritis Syncope Wears dentures Wears glasses Home Medications bimatoprost 1 drp EACH EYE QHS 06/05/13 [History Last Taken Unknown] calcium carbonate 1,000 mg PO DAILY@0800 06/05/13 [History Last Taken Unknown] multivitamin 1 tablet PO DAILY 09/30/13 [History Last Taken Unknown] alendronate 35 mg PO CASTILLO 04/24/19 [History Last Taken Unknown] cholecalciferol (vitamin D3) 1,000 unit PO DAILY 04/24/19 [History Last Taken Unknown] hydroxychloroquine 300 mg PO DAILYCM 04/24/19 [History Last Taken Unknown] biotin 2,500 mcg capsule 2,500 mcg PO DAILY 06/26/20 [History Last Taken Unknown] Allergy/AdvReac Type Severity Reaction Status Date / Time aspirin Allergy Severe Hives Verified 09/17/20 08:47 ibuprofen Allergy Hives Verified 09/17/20 08:47 Penicillins AdvReac Other Verified 09/17/20 08:47 Surgical History Hx of abdominal hysterectomy Hx of appendectomy Hx of arthroscopy of right knee Hx of arthroscopy of shoulder Hx of bilateral cataract extraction Hx of colonoscopy Hx of dilation and curettage Hx of toe surgery Hx of tonsillectomy Status post laparoscopic Warren fundoplication Social History Smoking Status: Never smoker alcohol intake: never ROS ROS ED Constitutional Constitutional ED: Denies chills or fever(s) Eyes Eyes: Denies change in vision ENT ENT ED: Denies ear pain or rhinorrhea Cardiovascular Cardiovascular: Denies chest pain Respiratory/Chest Respiratory/Chest: Denies cough or dyspnea Gastrointestinal Gastrointestinal: Denies abdominal pain or nausea Musculoskeletal Musculoskeletal: Reports other Details: Left foot/ankle pain and swelling Integumentary Reports Abrasions Neurologic Neurologic: Denies paresthesias or weakness Psychiatric Psychiatric: Denies anxiety or depression EXAM Physical Exam Const Vital Signs: 09/17/20 08:14 09/17/20 08:50 Temperature 98.2 F Temperature Source Temporal Pulse Rate 90 Respiratory Rate 18 Respiratory Effort Normal Non-Labored Respiratory Depth Normal Respiratory Pattern Normal Blood Pressure 125/79 H Blood Pressure Mean 94 Pulse Ox 97 Oxygen Delivery Method Room Air Room Air Positive well nourished and well developed General Appearance ED: well developed HEENT Reports TM's clear atraumatic Tympanic Membrane ED: Yes TM's clear Eyes PERRL and EOMs intact bilaterally Neck full ROM Chest Wall inspection of chest normal Resp normal respiratory effort and clear to auscultation bilaterally Cardio regular rhythm Cardio Narrative: 2+ left DP and PT pulses Rate: regular rate GI non-distended Back/Spine normal to inspection Extremity Extremity Narrative: Patient has edema and tenderness at the base of the fifth metatarsal of the left foot with associated ecchymosis. Normal range of motion of the ankle and foot. No pinpoint tenderness of the ankle. Normal Ware test. No fibular head tenderness. Neuro oriented x3, no focal motor deficits and no sensory deficits noted Sensorium / Orientation: alert Skin Skin Narrative: 2 cm superficial abrasion of the left forearm. Ecchymosis of the left proximal lateral foot. MDM MDM MDM Narrative Medical decision making narrative: Patient evaluated for left ankle pain and bruising. No obvious deformity but she does have soft tissue swelling. She not hit her head. She is not on any anticoagulation. X-ray interpreted by myself as well as radiology does not show any acute fracture. Patient placed in Hira wrap will be treated as a sprain. She is previously followed up with foot [facility] ankle clinic so she will follow-up there as needed. Will take Tylenol as needed for pain. Counseled on rice therapy. Radiography Diagnostic Testing: Radiology Impression Foot X-Ray 09/17/20 08:33 IMPRESSION: Osteopenia. No visualized acute fracture. Electronically Signed: Cara Lazaro MD at 9:27 EDT Tel , Service support , Ankle X-Ray 09/17/20 08:43 IMPRESSION: Mild soft tissue edema. No visualized acute fracture. Electronically Signed: Cara Lazaro MD at 9:24 EDT Tel , Service support , Discharge Plan Triage Chief Complaint: Fall ED Provider: Suzie Sheffield Dx/Rx/DC Orders Clinical Impression: Left ankle sprain Instructions: ED Ankle Sprain (Adult) Prescriptions: No Action biotin 2,500 mcg capsule 2,500 mcg PO DAILY RF: 0 calcium carbonate 500 MG tablet 1,000 mg PO DAILY@0800 RF: 0 bimatoprost 1 DROP bottle 1 drp EACH EYE QHS RF: 0 multivitamin 1 TABLET tablet 1 tablet PO DAILY RF: 0 alendronate 35 MG tablet 35 mg PO CASTILLO RF: 0 hydroxychloroquine 200 MG tablet 300 mg PO DAILYCM RF: 0 cholecalciferol (vitamin D3) 1,000 UNIT tablet 1,000 unit PO DAILY RF: 0 Primary Care Provider: Louis Isaacs Referrals: Louis Isaacs DO [Primary Care Provider] - Activity Restrictions/Additional Instructions: Wear the Hira wrap for compression. Take Tylenol for pain. Ice the area and keep your ankle elevated to help prevent further swelling. Follow-up with your geospatial technologist as needed. Disposition Disposition: Home, Self Care
--- NOTE | 2020-09-17 08:43 | RAD_ITS ---
STUDY: X-RAY - LEFT ANKLE REASON FOR EXAM: Female, 85 years old. Injury/Pain TECHNIQUE: 3 view(s) of the ankle. COMPARISON: None. FINDINGS: Normal visualized distal tibia and fibula. Normal medial and lateral malleoli. Normal tibiotalar articulation and ankle mortise. Normal visualized talus and calcaneus. The visualized subtalar, talonavicular, calcaneocuboid and tarsal articulations are normal. There is mild soft tissue edema about the ankle. RAD/Ankle min 3 Views IMPRESSION: Mild soft tissue edema. No visualized acute fracture. Electronically Signed: Cara Lazaro MD at 9:24 EDT Tel , Service support ,
== END 2020-09-17 09:57 | disposition home or self-care (01) ==
PROVIDERS: Emergency Provider Emergency Medicine; PCP Student in an Organized Health Care Education/Training Program
DX: S93.402A Sprain of unspecified ligament of left ankle, initial encounter (principal); S50.812A Abrasion of left forearm, initial encounter; W19.XXXA Unspecified fall, initial encounter; Y93.9 Activity, unspecified; Y92.9 Unspecified place or not applicable; Y99.9 Unspecified external cause status; M06.9 Rheumatoid arthritis, unspecified; E78.00 Pure hypercholesterolemia, unspecified; K21.9 Gastro-esophageal reflux disease without esophagitis; Z79.899 Other long term (current) drug therapy; Z86.718 Personal history of other venous thrombosis and embolism; Z85.6 Personal history of leukemia
CPT/HCPCS: 73610; 73630; 99282

== ENCOUNTER → 2020-12-26 09:45 | Outpatient (CLI) | payer MEDICARE, SELFPAY ==
[2020-12-26 12:19] LABS: Absolute Neutrophil Count 3.5 X10^3/uL (2.0-7.7); Basophil# 0.03 X10^3/uL; Basophil% 0.6 % (0-1); Eosinophil# 0.15 X10^3/uL; Eosinophils% 2.8 % (0-5); Hematocrit 40.4 % (37-47); Hemoglobin 13.4 g/dL (12.0-15.0); Lymphocyte % 20.6 % (19-41); Mean Corp Hgb Conc 33.2 g/dL (32-36); Mean Corpuscular Hgb 32.1 pg (27.0-32.0); Mean Corpuscular Volume 96.7 fL (81-99); Monocyte# 0.53 X10^3/uL; Monocyte% 9.9 % (0-10); NRBC Flagged by Analyzer 0 % (0-5); Neutrophil # 3.53 X10^3/uL (2.7-7.7); Neutrophil % 65.9 % (47-70); Platelet Count 205 K/mm3 (150-450); RBC Distribution Width CV 12.3 % (11.6-14.6); RBC Distribution Width SD 43.7 fl (35.1-43.9); Red Blood Count 4.18 M/mm3 (4.2-5.4); White Blood Count 5.4 K/mm3 (4.4-11.0)
[2020-12-26 12:42] LABS: AST(SGOT) 18 U/L (15-37); Alanine Aminotransfer ALT/SGPT 18 U/L (13-56); Albumin, Serum 3.5 g/dL (3.2-5.0); Alkaline Phosphatase 74 U/L (45-117); Anion Gap 6 (5-15); BUN 14 mg/dL (7-18); BUN/Creat Ratio 13.1 RATIO (10-20); Chloride 106 mmol/L (98-107); Creatinine, Serum 1.07 mg/dL (0.55-1.02); EST Glomerular Filtration Rate 52 mL/min (>60); Est Glom Filt Rate - Afr Amer 63 mL/min (>60); Globulin 3.5 g/dL (2.2-4.2); Glucose 87 mg/dL (74-106); Potassium 4.2 mmol/L (3.5-5.1); Sodium Level 142 mmol/L (136-145)
== END ==
PROVIDERS: PCP Student in an Organized Health Care Education/Training Program; Referring Provider Internal Medicine Rheumatology; Visit Provider Internal Medicine Rheumatology
DX: M06.4 Inflammatory polyarthropathy (principal); M15.9 Polyosteoarthritis, unspecified; Q66.70 Congenital pes cavus, unspecified foot; D69.3 Immune thrombocytopenic purpura; M81.0 Age-related osteoporosis without current pathological fracture; H40.9 Unspecified glaucoma
CPT/HCPCS: 36415; 80053; 85025

== ENCOUNTER 2021-02-27 18:36 | Emergency (ER) | payer MEDICARE, SELFPAY ==
[2021-02-27 18:37] VITALS: BP 149/58; PULSE 86; RESP 16; TEMP 36.6; O2SAT 97; BMI 17.3
--- NOTE | 2021-02-27 19:20 | EX.ED.DYSGE1 ---
HPI History of Present Illness Chief Complaint: Rash Detail of Chief Complaint: Patient presents with a rash that started yesterday Informant: patient Narrative Narrative: Patient presents with a rash and itching that started yesterday. Patient describes her rashes in the armpits and abdomen and groin as well as on her neck. The rash is pruritic. She denies any new soaps or detergents or allergens. No new medications. She denies recent illness. 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 She denies easy bleeding. Prior similar symptoms: No PFSH PFSH Medical History Anemia Back pain DVT (deep venous thrombosis) Easy bruising Esophageal dysphagia Family history of malignant neoplasm of colon in father Gastric reflux High cholesterol History of leukemia History of pain when walking Non-smoker Rheumatoid arthritis Syncope Wears dentures Wears glasses Home Medications bimatoprost 1 drp EACH EYE QHS 06/05/13 [History Last Taken Unknown] calcium carbonate 1,000 mg PO DAILY@0800 06/05/13 [History Last Taken Unknown] multivitamin 1 tablet PO DAILY 09/30/13 [History Last Taken Unknown] alendronate 35 mg PO CASTILLO 04/24/19 [History Last Taken Unknown] cholecalciferol (vitamin D3) 1,000 unit PO DAILY 04/24/19 [History Last Taken Unknown] hydroxychloroquine 300 mg PO DAILYCM 04/24/19 [History Last Taken Unknown] biotin 2,500 mcg capsule 2,500 mcg PO DAILY 06/26/20 [History Last Taken Unknown] prednisone 20 mg PO BID #10 tab 02/27/21 [Rx Last Taken Unknown] Allergy/AdvReac Type Severity Reaction Status Date / Time aspirin Allergy Severe Hives Verified 09/17/20 08:47 ibuprofen Allergy Hives Verified 09/17/20 08:47 Penicillins AdvReac Other Verified 09/17/20 08:47 Surgical History Hx of abdominal hysterectomy Hx of appendectomy Hx of arthroscopy of right knee Hx of arthroscopy of shoulder Hx of bilateral cataract extraction Hx of colonoscopy Hx of dilation and curettage Hx of toe surgery Hx of tonsillectomy Status post laparoscopic Warren fundoplication Social History Smoking Status: Never smoker alcohol intake: never ROS ROS ED Constitutional Constitutional ED: Reports systems reviewed and no addt'l complaints, except as documented; Denies body ache(s), change in weight or chills Eyes Eyes: Denies acute decrease in peripheral vision, change in vision, double vision or loss of vision ENT ENT ED: Reports none; Denies ear pain, lip swelling, loss taste/smell, neck pain, otalgia or sore throat Cardiovascular Cardiovascular: Reports none; Denies abdominal pain, chest pain with activity, leg edema, lightheadedness, palpitations, rapid heart rate or syncope Respiratory/Chest Respiratory/Chest: Reports none; Denies change in mental status, dry cough, dyspnea, hemoptysis, shortness of breath at rest or shortness of breath with exertion Gastrointestinal Gastrointestinal: Reports none; Denies abdominal pain, change in stool character, diarrhea, hematemesis, hematochezia, melena, rectal bleeding or vomiting Genitourinary Genitourinary ED: Reports none; Denies abdominal discomfort, anuria, dysuria, genital pain or polyuria Musculoskeletal Musculoskeletal: Reports none; Denies arthralgias, back pain, difficulty walking, extremity pain, muscle weakness or myalgias Integumentary Reports none and rash; Denies abscess Neurologic Neurologic: Reports none; Denies abnormal gait, confusion, focal weakness, frequent falls, headache(s), loss of vision, numbness, paresthesias, radicular pain, vertigo or weakness Psychiatric Psychiatric: Reports systems reviewed and no addt'l complaints, except as documented and none; Denies behavioral changes, confusion, difficulty concentrating, hallucinations, suicidal ideation, tactile hallucinations or visual hallucinations Endocrine Endocrinology: Denies none, cold intolerance, excessive sweating, fatigue or heat intolerance Hematologic/Lymphatic Hematologic/Lymphatic: Reports none; Denies anemia, easy bleeding or easy bruising Allergic/Immunologic Allergic/Immunologic ED: Denies as per HPI, none, lip swelling, mouth swelling, throat swelling, tongue swelling or hives EXAM Physical Exam Const Vital Signs: 02/27/21 18:37 Temperature 97.8 F Temperature Source Temporal Pulse Rate 86 Respiratory Rate 16 Blood Pressure 149/58 H Blood Pressure Mean 88 Pulse Ox 97 Oxygen Delivery Method Room Air Positive well nourished and well developed General Appearance ED: well developed and NAD HEENT Reports TM's clear and moist mucous membranes normocephalic and atraumatic; Negative for trauma or tenderness Tympanic Membrane ED: Yes TM's clear Eyes PERRL and EOMs intact bilaterally General Eye ED: Negative for pale conjunctiva or scleral icterus Neck no lymphadenopathy, supple and no JVD General: Negative for tenderness Chest Wall inspection of chest normal and palpation of chest normal Chest: Negative for tenderness Resp normal respiratory effort and clear to auscultation bilaterally Effort and Inspection: Negative for respiratory distress or pain with movement Auscultation: Negative for rhonchi, wheezes or diminished lung sounds Cardio regular rate, regular rhythm, S1 normal heart sound, S2 normal heart sound and no murmurs Peripheral Pulses: pulses 2+ throughout GI normal to inspection, nondistended, normoactive bowel sounds, soft to palpation, non-tender, non-distended and no masses Back/Spine no CVA tenderness and no thoracic nor lumbar tenderness Extremity normal to inspection General Extremety ED: Negative for edema General Extremity: Negative for edema Neuro oriented x3, CN's II-XII intact bilaterally, no sensory deficits noted and gait normal Sensorium / Orientation: awake, alert, oriented to person, oriented to place and oriented to time Motor Exam: strength 5/5 throughout and strength abnormal Psych mental status grossly normal Skin no wounds Skin Narrative: Patient has a slightly raised erythematous rash that blanches with pressure involving the trunk and extremities as well as the right side of the face. Rashes consistent with urticaria. No purpura noted. No vesicles noted. MDM MDM MDM Narrative Medical decision making narrative: Patient was treated with Benadryl and prednisone while in the department. I did check a CBC as the family was concerned about low platelet count and this showed a normal platelet count. Patient will be given a prescription for prednisone and advised to follow-up with primary care physician in 3 to 5 days. I suspect she likely has urticaria however the etiology is unclear. Patient advised to return if lip or tongue swelling or difficulty breathing or condition should worsen anyway. Lab Data Attestation: I reviewed the patient's lab results. Labs: Laboratory Results - last 24 hr 02/27/21 19:45 WBC 5.8 RBC 4.08 L Hgb 13.1 Hct 39.0 MCV 95.6 MCH 32.1 H MCHC 33.6 RDW Std Deviation 42.7 RDW Coeff of Katiana 12.2 Plt Count 209 MPV 9.3 Immature Gran % (Auto) 0.200 Neut % (Auto) 67.6 Lymph % (Auto) 20.8 [place] % (Auto) 9.2 Eos % (Auto) 1.9 Baso % (Auto) 0.3 Absolute Neuts (auto) 3.9 Absolute Lymphs (auto) 1.20 Nucleated RBC % 0 Discharge Plan Triage Chief Complaint: Rash ED Provider: Elena Sneed Dx/Rx/DC Orders Clinical Impression: Urticaria Instructions: ED Hives (Adult) Prescriptions: New prednisone 20 mg tablet 20 mg PO BID Qty: 10 RF: 0 No Action biotin 2,500 mcg capsule 2,500 mcg PO DAILY RF: 0 calcium carbonate 500 MG tablet 1,000 mg PO DAILY@0800 RF: 0 bimatoprost 1 DROP bottle 1 drp EACH EYE QHS RF: 0 multivitamin 1 TABLET tablet 1 tablet PO DAILY RF: 0 alendronate 35 MG tablet 35 mg PO CASTILLO RF: 0 hydroxychloroquine 200 MG tablet 300 mg PO DAILYCM RF: 0 cholecalciferol (vitamin D3) 1,000 UNIT tablet 1,000 unit PO DAILY RF: 0 Primary Care Provider: Louis Isaacs Referrals: Louis Isaacs DO [Primary Care Provider] - 3-5 Days Disposition Disposition: Home, Self Care
[2021-02-27] MEDS: predniSONE 20 MG Tablet 40 MG PO (19:34)
[2021-02-27] MEDS: DiphenhydrAMINE 25 MG Capsule PO (19:34)
[2021-02-27 19:50] LABS: Absolute Neutrophil Count 3.9 X10^3/uL (2.0-7.7); Basophil# 0.02 X10^3/uL; Basophil% 0.3 % (0-1); Eosinophil# 0.11 X10^3/uL; Eosinophils% 1.9 % (0-5); Hemoglobin 13.1 g/dL (12.0-15.0); Lymphocyte % 20.8 % (19-41); Mean Corp Hgb Conc 33.6 g/dL (32-36); Mean Corpuscular Hgb 32.1 pg (27.0-32.0); Mean Corpuscular Volume 95.6 fL (81-99); Mean Platelet Vol. 9.3 fl (6.2-12.0); Monocyte# 0.53 X10^3/uL; Monocyte% 9.2 % (0-10); NRBC Flagged by Analyzer 0 % (0-5); Neutrophil # 3.91 X10^3/uL (2.7-7.7); Neutrophil % 67.6 % (47-70); Platelet Count 209 K/mm3 (150-450); RBC Distribution Width CV 12.2 % (11.6-14.6); RBC Distribution Width SD 42.7 fl (35.1-43.9); Red Blood Count 4.08 M/mm3 (4.2-5.4); White Blood Count 5.8 K/mm3 (4.4-11.0)
== END 2021-02-27 20:12 | disposition home or self-care (01) ==
PROVIDERS: Emergency Provider Emergency Medicine; PCP Student in an Organized Health Care Education/Training Program
DX: L50.9 Urticaria, unspecified (principal); M06.9 Rheumatoid arthritis, unspecified; K21.9 Gastro-esophageal reflux disease without esophagitis; E78.00 Pure hypercholesterolemia, unspecified; Z79.899 Other long term (current) drug therapy; Z86.718 Personal history of other venous thrombosis and embolism
CPT/HCPCS: 85025; 99283

== ENCOUNTER 2021-03-12 14:45 | Outpatient (CLI) | payer MEDICARE, SELFPAY ==
[2021-03-12 14:51] VITALS: BP 169/88; PULSE 78; RESP 16; TEMP 36.4; O2SAT 96; BMI 17.6
[2021-03-12] MEDS: 0.9% Saline Lock 10 ML Syringe IV (14:51)
[2021-03-12 15:15] VITALS: BP 147/72; PULSE 71; RESP 16; TEMP 36.2; O2SAT 98
[2021-03-12 16:14] VITALS: BP 133/75; PULSE 69; RESP 16; TEMP 36.9; O2SAT 98
== END 2021-03-12 23:59 | disposition home or self-care (01) ==
LOC: MS3OUT 14:45 → MS3 14:46
PROVIDERS: PCP Student in an Organized Health Care Education/Training Program; Referring Provider Nurse Practitioner Adult Health; Visit Provider Nurse Practitioner Adult Health
DX: U07.1 COVID-19 (principal)
CPT/HCPCS: J7050; M0243; A4216; Q0244

== ENCOUNTER 2021-04-23 07:58 | Outpatient (CLI) | payer MEDICARE, SELFPAY ==
--- NOTE | 2021-04-23 08:03 | MRI_ITS ---
STUDY: MRI BRAIN WITHOUT CONTRAST REASON FOR EXAM: Female, 85 years old. L VISUAL FIELD DEFECT TECHNIQUE: Standardized multiplanar fat and water weighted pulse sequences were obtained. COMPARISON: None. FINDINGS: There is moderate cerebral atrophy with widening of the extra-axial spaces and ventricular dilatation. Normal white matter tracts of the supratentorial brain. There is no evidence for recent intracranial ischemia or other cause of cytotoxic edema on diffusion weighted imaging (DWI). Normal T2* images of the brain without demonstrated susceptibility artifact. There is no demonstrated hemosiderin stain. Normal bilateral basal ganglia. Normal thalami. There is no extra-axial fluid accumulation. Normal flow voids within the major intracranial circulation suggesting patency by spin echo criteria. Normal sella turcica, pituitary gland, infundibular stalk, optic chiasm and hypothalamus. Normal tectal plate and pineal gland. Normal midbrain, diomedes and medulla. Normal cerebellum. Normal basal cisterns. Normal bilateral temporal bones. Normal bilateral internal auditory canals. There are bilateral ocular lens implants with otherwise normal intraorbital contents. Normal visualized paranasal sinuses. Normal calvarium and skull base. Normal visualized soft tissue structures. Normal visualized upper cervical spine. MRI/Brain without Contrast IMPRESSION: Involutional changes of the brain, as described above. Electronically Signed: Duc Martinez MD at 10:55 EST ,
== END 2021-04-23 23:59 | disposition home or self-care (01) ==
PROVIDERS: PCP Student in an Organized Health Care Education/Training Program; Visit Provider Ophthalmology
DX: H53.462 Homonymous bilateral field defects, left side (principal)
CPT/HCPCS: 70551

== ENCOUNTER → 2021-06-25 | Outpatient (CLI) | payer MEDICARE, SELFPAY ==
[2021-06-25 12:12] LABS: Absolute Lymphocyte Count 1.11 X10^3/uL (0.83-4.51); Absolute Neutrophil Count 3.4 X10^3/uL (2.0-7.7); Basophil# 0.04 X10^3/uL; Basophil% 0.8 % (0-1); Eosinophil# 0.16 X10^3/uL; Eosinophils% 3.1 % (0-5); Hematocrit 38.9 % (37-47); Hemoglobin 12.8 g/dL (12.0-15.0); Lymphocyte # 1.11 X10^3/ul (0.83-4.51); Lymphocyte % 21.2 % (19-41); Mean Corp Hgb Conc 32.9 g/dL (32-36); Mean Corpuscular Hgb 31.9 pg (27.0-32.0); Monocyte# 0.54 X10^3/uL; Monocyte% 10.3 % (0-10); NRBC Flagged by Analyzer 0 % (0-5); Neutrophil # 3.38 X10^3/uL (2.7-7.7); Neutrophil % 64.4 % (47-70); Platelet Count 209 K/mm3 (150-450); RBC Distribution Width CV 12.2 % (11.6-14.6); Red Blood Count 4.01 M/mm3 (4.2-5.4); White Blood Count 5.2 K/mm3 (4.4-11.0)
[2021-06-25 13:12] LABS: ALB/GLOB Ratio 1.1 RATIO (0.9-2.4); AST(SGOT) 20 U/L (15-37); Alanine Aminotransfer ALT/SGPT 21 U/L (13-56); Albumin, Serum 3.6 g/dL (3.2-5.0); Alkaline Phosphatase 60 U/L (45-117); Anion Gap 5 (5-15); BUN 14 mg/dL (7-18); BUN/Creat Ratio 13.6 RATIO (10-20); Chloride 109 mmol/L (98-107); Creatinine, Serum 1.03 mg/dL (0.55-1.02); EST Glomerular Filtration Rate 54 mL/min (>60); Est Glom Filt Rate - Afr Amer 66 mL/min (>60); Globulin 3.2 g/dL (2.2-4.2); Glucose 83 mg/dL (74-106); Potassium 3.9 mmol/L (3.5-5.1); Protein, Total 6.8 g/dL (6.4-8.2); Sodium Level 142 mmol/L (136-145)
== END | disposition home or self-care (01) ==
LOC: MTLAB 09:41
PROVIDERS: PCP Student in an Organized Health Care Education/Training Program; Referring Provider Internal Medicine Rheumatology; Visit Provider Internal Medicine Rheumatology
DX: M06.4 Inflammatory polyarthropathy (principal); D69.3 Immune thrombocytopenic purpura; M15.9 Polyosteoarthritis, unspecified; Q66.70 Congenital pes cavus, unspecified foot; M81.0 Age-related osteoporosis without current pathological fracture; H40.9 Unspecified glaucoma
CPT/HCPCS: 36415; 80053; 85025

== ENCOUNTER → 2021-12-24 | Outpatient (CLI) | payer MEDICARE, SELFPAY ==
[2021-12-24 12:31] LABS: Absolute Lymphocyte Count 1.08 X10^3/uL (0.83-4.51); Absolute Neutrophil Count 3.5 X10^3/uL (2.0-7.7); Basophil# 0.03 X10^3/uL; Basophil% 0.6 % (0-1); Eosinophil# 0.19 X10^3/uL; Eosinophils% 3.6 % (0-5); Hematocrit 39.6 % (37-47); Hemoglobin 13.3 g/dL (12.0-15.0); Lymphocyte # 1.08 X10^3/ul (0.83-4.51); Lymphocyte % 20.6 % (19-41); Mean Corp Hgb Conc 33.6 g/dL (32-36); Mean Corpuscular Hgb 32.6 pg (27.0-32.0); Mean Corpuscular Volume 97.1 fL (81-99); Mean Platelet Vol. 10.2 fl (6.2-12.0); Monocyte# 0.49 X10^3/uL; Monocyte% 9.3 % (0-10); NRBC Flagged by Analyzer 0 % (0-5); Neutrophil # 3.45 X10^3/uL (2.7-7.7); Neutrophil % 65.7 % (47-70); Platelet Count 186 K/mm3 (150-450); RBC Distribution Width CV 12.2 % (11.6-14.6); RBC Distribution Width SD 43.5 fl (35.1-43.9); Red Blood Count 4.08 M/mm3 (4.2-5.4); White Blood Count 5.3 K/mm3 (4.4-11.0)
[2021-12-24 13:43] LABS: ALB/GLOB Ratio 1.1 RATIO (0.9-2.4); AST(SGOT) 20 U/L (15-37); Alanine Aminotransfer ALT/SGPT 22 U/L (13-56); Albumin, Serum 3.6 g/dL (3.2-5.0); Alkaline Phosphatase 64 U/L (45-117); Anion Gap 7 (5-15); BUN 11 mg/dL (7-18); BUN/Creat Ratio 9.6 RATIO (10-20); Calcium,Total 9.8 mg/dL (8.5-10.1); Chloride 104 mmol/L (98-107); Creatinine, Serum 1.15 mg/dL (0.55-1.02); EST Glomerular Filtration Rate 48 mL/min (>60); Est Glom Filt Rate - Afr Amer 58 mL/min (>60); Globulin 3.2 g/dL (2.2-4.2); Glucose 123 mg/dL (74-106); Potassium 4.1 mmol/L (3.5-5.1); Protein, Total 6.8 g/dL (6.4-8.2); Sodium Level 140 mmol/L (136-145)
== END | disposition home or self-care (01) ==
LOC: MTLAB 10:14
PROVIDERS: PCP Student in an Organized Health Care Education/Training Program; Referring Provider Internal Medicine Rheumatology; Visit Provider Internal Medicine Rheumatology
DX: M06.4 Inflammatory polyarthropathy (principal); D69.3 Immune thrombocytopenic purpura; M15.9 Polyosteoarthritis, unspecified; Q66.70 Congenital pes cavus, unspecified foot; M81.0 Age-related osteoporosis without current pathological fracture; H40.9 Unspecified glaucoma
CPT/HCPCS: 36415; 80053; 85025

== ENCOUNTER 2022-03-09 03:22 | Emergency (ER) | payer MEDICARE, SELFPAY ==
[2022-03-09 03:26] VITALS: BP 122/57; PULSE 69; RESP 15; TEMP 36.8; O2SAT 98; BMI 18.7
[2022-03-09 03:46] LABS: Absolute Lymphocyte Count 0.99 X10^3/uL (0.83-4.51); Absolute Neutrophil Count 6.1 X10^3/uL (2.0-7.7); Basophil# 0.02 X10^3/uL; Basophil% 0.3 % (0-1); Eosinophil# 0.16 X10^3/uL; Eosinophils% 2.1 % (0-5); Hematocrit 37.7 % (37-47); Hemoglobin 12.7 g/dL (12.0-15.0); Lymphocyte # 0.99 X10^3/ul (0.83-4.51); Lymphocyte % 12.7 % (19-41); Mean Corp Hgb Conc 33.7 g/dL (32-36); Mean Corpuscular Hgb 31.9 pg (27.0-32.0); Mean Corpuscular Volume 94.7 fL (81-99); Monocyte# 0.44 X10^3/uL; Monocyte% 5.6 % (0-10); NRBC Flagged by Analyzer 0 % (0-5); Neutrophil # 6.13 X10^3/uL (2.7-7.7); Neutrophil % 78.5 % (47-70); Platelet Count 195 K/mm3 (150-450); RBC Distribution Width CV 11.9 % (11.6-14.6); RBC Distribution Width SD 41.6 fl (35.1-43.9); Red Blood Count 3.98 M/mm3 (4.2-5.4); White Blood Count 7.8 K/mm3 (4.4-11.0)
[2022-03-09 04:05] LABS: Anion Gap 5 (5-15); BUN 18 mg/dL (7-18); BUN/Creat Ratio 16.4 RATIO (10-20); Calcium,Total 8.6 mg/dL (8.5-10.1); Chloride 106 mmol/L (98-107); EST Glomerular Filtration Rate 50 mL/min (>60); Est Glom Filt Rate - Afr Amer 61 mL/min (>60); Estimated Creatinine Clearance 27.95 ml/min; Glucose 181 mg/dL (74-106); Potassium 3.6 mmol/L (3.5-5.1); Sodium Level 140 mmol/L (136-145)
--- NOTE | 2022-03-09 04:13 | EDS_ITS ---
HPI History of Present Illness Chief Complaint: Nausea/Vomiting Detail of Chief Complaint: Profuse diarrhea since 0200 and nausea with dry heaves Informant: patient and family Onset/Context/Timing Onset: Hours Context: Sudden Onset Timing: Continuous Quality: Profuse diarrhea Location: Home Current Severity: Severe Maximum Severity: Severe Worsened by: Nothing Relieved by: Nothing Associated Symptoms Associated Symptoms: Dry heaves Narrative Narrative: Patient is an 86-year-old woman with history of esophageal dysphagia, glaucoma who presents with dry heaves and diarrhea that started 0200. No ill contacts. She states she has not been out of the house in 3 days. She denies fever, chills night sweats. She does report thirst and dry mouth. She denies orthostatic symptoms. She denies headache, visual, ocular auditory symptoms. She denies neck pain or stiffness. She denies cardiac respiratory symptoms. She denies urologic symptoms. She denies rash. She denies myalgias arthralgias. She denies joint swelling. Prior similar symptoms: No Recent Illness/Hospitalization: No PFSH PFS Medical History Anemia Back pain DVT (deep venous thrombosis) Easy bruising Esophageal dysphagia Family history of malignant neoplasm of colon in father Gastric reflux High cholesterol History of leukemia History of pain when walking Non-smoker Rheumatoid arthritis Syncope Wears dentures Wears glasses Home Medications bimatoprost 0.03 % drops with applicator, eyelash base 1 drp EACH EYE QHS 06/05/13 [History Last Taken Unknown] calcium carbonate 500 mg calcium (1,250 mg) tablet 1,000 mg PO DAILY@0800 06/05/13 [History Last Taken Unknown] multivitamin 1 tablet PO DAILY 09/30/13 [History Last Taken Unknown] alendronate 35 mg tablet 35 mg PO CASTILLO 04/24/19 [History Last Taken Unknown] cholecalciferol (vitamin D3) 25 mcg (1,000 unit) tablet 1,000 unit PO DAILY 04/24/19 [History Last Taken Unknown] hydroxychloroquine 200 mg tablet 300 mg PO DAILYCM 04/24/19 [History Last Taken Unknown] biotin 2,500 mcg capsule 2,500 mcg PO DAILY 06/26/20 [History Last Taken Unknown] Allergy/AdvReac Type Severity Reaction Status Date / Time aspirin Allergy Severe Hives Verified 03/09/22 03:28 ibuprofen Allergy Hives Verified 03/09/22 03:28 Penicillins AdvReac I PASS Verified 03/09/22 03:28 OUT Surgical History Hx of abdominal hysterectomy Hx of appendectomy Hx of arthroscopy of right knee Hx of arthroscopy of shoulder Hx of bilateral cataract extraction Hx of colonoscopy Hx of dilation and curettage Hx of toe surgery Hx of tonsillectomy Status post laparoscopic Warren fundoplication Social History (Updated 03/09/22 @ 04:[address] Sarkis Dubon MD) household members: family Smoking Status: Never smoker alcohol intake: never ROS ROS ED Constitutional Constitutional ED: Denies chills, fever(s), subjective, sweats or weight loss Eyes Eyes: Denies blurry vision, change in vision or diplopia ENT ENT ED: Denies ear pain, rhinorrhea or sore throat Cardiovascular Cardiovascular: Denies chest pain or palpitations Respiratory/Chest Respiratory/Chest: Denies cough, dyspnea or dyspnea on exertion Gastrointestinal Gastrointestinal: Reports abdominal pain, diarrhea, nausea and vomiting; Denies melena Genitourinary Genitourinary ED: Denies dysuria, hematuria or urinary frequency Musculoskeletal Musculoskeletal: Denies arthralgias, back pain, myalgias or neck pain Integumentary Denies rash Neurologic Neurologic: Reports weakness; Denies headache(s) Hematologic/Lymphatic Hematologic/Lymphatic: Reports systems reviewed and no addt'l complaints, except as documented EXAM Physical Exam Const Vital Signs: 03/09/22 03:26 Temperature 98.3 F Temperature Source Temporal Pulse Rate 69 Respiratory Rate 15 Blood Pressure 122/57 H Blood Pressure Mean 78 Pulse Ox 98 Oxygen Delivery Method Room Air Positive well nourished and well developed General Appearance ED: well developed and NAD; Negative for cyanotic or diaphoretic HEENT Reports dry mucous membranes Mouth ED: Yes dry mucous membranes Mouth: dry mucous membranes MDM MDM MDM Narrative Medical decision making narrative: Patient Mila with nausea, vomiting diarrhea. Suspect acute viral illness. In light of her age and symptoms will obtain basic metabolic panel to assess renal function and electrolytes and specifically to rule out hypokalemia. CBC was obtained to assess white count and differential. Patient was reassessed at 0450. Her nausea and vomiting has resolved. She is had no diarrhea in the department. If she passes p.o. challenge will discharge to home. Patient was reassessed at 0523. Patient's had no further vomiting or diarrhea. She passed p.o. challenge. She be discharged to home. Lab Data Attestation: I reviewed the patient's lab results. Lab results narrative: CBC is unremarkable. Basic metabolic panel reveals slight elevation in creatinine of 1.10 with a GFR of 50. Glucose is elevated 181. There is no history of diabetes. Labs: Laboratory Results - last 24 hr 03/09/22 03/09/22 03:40 03:40 WBC 7.8 RBC 3.98 L Hgb 12.7 Hct 37.7 MCV 94.7 MCH 31.9 MCHC 33.7 RDW Std Deviation 41.6 RDW Coeff of Katiana 11.9 Plt Count 195 MPV 9.0 Immature Gran % (Auto) 0.800 Neut % (Auto) 78.5 H Lymph % (Auto) 12.7 L [place] % (Auto) 5.6 Eos % (Auto) 2.1 Baso % (Auto) 0.3 Absolute Neuts (auto) 6.1 Absolute Lymphs (auto) 0.99 Nucleated RBC % 0 Sodium 140 Potassium 3.6 Chloride 106 Carbon Dioxide 29.0 Anion Gap 5 BUN 18 Creatinine 1.10 H Estim Creat Clear Calc 27.95 Est GFR (MDRD) Af Amer 61 Est GFR (MDRD) Non-Af 50 L BUN/Creatinine Ratio 16.4 Glucose 181 H Calcium 8.6 Discharge Plan Triage Chief Complaint: Nausea/Vomiting ED Provider: Sarkis Dubon Dx/Rx/DC Orders Clinical Impression: Abdominal pain, vomiting, and diarrhea, Over 65 years old, Mild dehydration, Elevated blood sugar level Instructions: ED Gastroenteritis, Viral (Adult) Prescriptions: No Action biotin 2,500 mcg capsule 2,500 mcg PO DAILY calcium carbonate 500 MG tablet 1,000 mg PO DAILY@0800 Label Comments: supplements bimatoprost 1 DROP bottle 1 drp EACH EYE QHS Label Comments: eye drops multivitamin 1 TABLET tablet 1 tablet PO DAILY Label Comments: vitamins alendronate 35 MG tablet 35 mg PO CASTILLO hydroxychloroquine 200 MG tablet 300 mg PO DAILYCM cholecalciferol (vitamin D3) 1,000 UNIT tablet 1,000 unit PO DAILY Primary Care Provider: Bairon Engle Referrals: Bairon Engle MD [Primary Care Provider] - As Needed Disposition Disposition: Home, Self Care
[2022-03-09] MEDS: Loperamide 2 MG Capsule PO (04:53)
== END 2022-03-09 05:39 | disposition home or self-care (01) ==
PROVIDERS: Emergency Provider Emergency Medicine; PCP Family Medicine; Visit Provider Emergency Medicine
DX: R11.2 Nausea with vomiting, unspecified (principal); M06.9 Rheumatoid arthritis, unspecified; E86.0 Dehydration; R10.9 Unspecified abdominal pain; R19.7 Diarrhea, unspecified; R73.9 Hyperglycemia, unspecified; R13.10 Dysphagia, unspecified; E78.00 Pure hypercholesterolemia, unspecified; H40.9 Unspecified glaucoma; K21.9 Gastro-esophageal reflux disease without esophagitis; Z79.899 Other long term (current) drug therapy
CPT/HCPCS: 80048; 85025; 96360; 99284; J7040; A4216; J2405

== ENCOUNTER 2022-03-11 01:50 | Emergency (ER) | payer MEDICARE, SELFPAY ==
[2022-03-11 01:53] VITALS: BP 137/72; PULSE 70; RESP 18; TEMP 36.4; O2SAT 96; BMI 18.2
--- NOTE | 2022-03-11 02:13 | EDS_ITS ---
HPI History of Present Illness Chief Complaint: General Illness Informant: patient, family (daughter) and EMS Onset/Context/Timing Onset: Hours (2) Context: Gradual Onset Timing: Continuous and Waxes and wanes Quality: dysequilibrium Current Severity: Moderate Maximum Severity: Severe Worsened by: trying to walk Relieved by: resting and remaining still Associated Symptoms Associated Symptoms: n/v Narrative Narrative: Patient states she took one of her new Aricept pills tonight and an hour later was feeling vertiginous, disequilibrium/off-balance, nausea, dry heaving, and unable to get up off of the toilet because of feeling so poorly and weak so she called EMS. This occurred 2 days ago, exact same scenario. 1 to 2 hours after she took the very first dose of Aricept which is a new prescription for her, she had the same symptoms. She had diarrhea then, she has not been eating a whole lot since that episode, and when she went to the toilet tonight she had loose/liquid diarrhea as well, just the second time she has had it. She denies any fevers or chills. She has felt well for the last 2 days ever since she was in the ER for the other episode until she took the pill again tonight. [facility] Medical History Anemia Back pain DVT (deep venous thrombosis) Easy bruising Esophageal dysphagia Family history of malignant neoplasm of colon in father Gastric reflux High cholesterol History of leukemia History of pain when walking Non-smoker Rheumatoid arthritis Syncope Wears dentures Wears glasses Home Medications bimatoprost 0.03 % drops with applicator, eyelash base 1 drp EACH EYE QHS 06/05/13 [History Last Taken Unknown] calcium carbonate 500 mg calcium (1,250 mg) tablet 1,000 mg PO DAILY@0800 06/05/13 [History Last Taken Unknown] multivitamin 1 tablet PO DAILY 09/30/13 [History Last Taken Unknown] alendronate 35 mg tablet 35 mg PO CASTILLO 04/24/19 [History Last Taken Unknown] cholecalciferol (vitamin D3) 25 mcg (1,000 unit) tablet 1,000 unit PO DAILY 04/24/19 [History Last Taken Unknown] hydroxychloroquine 200 mg tablet 300 mg PO DAILYCM 04/24/19 [History Last Taken Unknown] biotin 2,500 mcg capsule 2,500 mcg PO DAILY 06/26/20 [History Last Taken Unknown] Allergy/AdvReac Type Severity Reaction Status Date / Time aspirin Allergy Severe Hives Verified 03/09/22 03:28 ibuprofen Allergy Hives Verified 03/09/22 03:28 Penicillins AdvReac I PASS Verified 03/09/22 03:28 OUT Surgical History Hx of abdominal hysterectomy Hx of appendectomy Hx of arthroscopy of right knee Hx of arthroscopy of shoulder Hx of bilateral cataract extraction Hx of colonoscopy Hx of dilation and curettage Hx of toe surgery Hx of tonsillectomy Status post laparoscopic Warren fundoplication Social History household members: family Smoking Status: Never smoker alcohol intake: never ROS ROS ED Constitutional Constitutional ED: Reports malaise and weakness; Denies chills or fever(s) Eyes Eyes: Denies change in vision or diplopia ENT ENT ED: Reports as per HPI and vertigo; Denies rhinorrhea or sore throat Cardiovascular Cardiovascular: Denies chest pain or palpitations Respiratory/Chest Respiratory/Chest: Denies cough or dyspnea Gastrointestinal Gastrointestinal: Reports diarrhea, nausea and vomiting; Denies abdominal pain Genitourinary Genitourinary ED: Denies dysuria or hematuria Musculoskeletal Musculoskeletal: Denies back pain or neck pain Integumentary Denies abscess or rash Neurologic Neurologic: Denies headache(s), paresthesias or weakness Psychiatric Psychiatric: Denies anxiety or suicidal thoughts EXAM Physical Exam Const Vital Signs: 03/11/22 01:53 03/11/22 01:56 Temperature 97.6 F L Temperature Source Temporal Pulse Rate 70 Respiratory Rate 18 Respiratory Effort Normal Non-Labored Respiratory Pattern Normal Blood Pressure 137/72 H Blood Pressure Mean 93 Pulse Ox 96 Oxygen Delivery Method Room Air Positive well nourished and well developed General Appearance ED: well developed and NAD HEENT Reports TM's clear and moist mucous membranes HEENT Narrative: Posterior oropharynx clear. normocephalic and atraumatic Tympanic Membrane ED: Yes TM's clear Eyes PERRL and EOMs intact bilaterally Eyes Narrative: No pathologic nystagmus including vertical/rotatory Neck full ROM, no lymphadenopathy and supple Resp normal respiratory effort and clear to auscultation bilaterally Cardio regular rate, regular rhythm and no murmurs GI non-tender and non-distended Auscultation: normoactive bowel sounds Palpation: soft Back/Spine no CVA tenderness General Back: other FROM Extremity normal to inspection General Extremety ED: Negative for edema, pulses abnormal or tenderness General Extremity: Negative for edema or pulses abnormal Neuro oriented x3, CN's II-XII intact bilaterally and no sensory deficits noted Neuro Narrative: Normal [id number] and [id number] bilaterally. No clonus. Normal reflexes. Sensorium / Orientation: awake and alert Motor Exam: strength 5/5 throughout Psych mental status grossly normal Skin no rashes or lesions noted and no wounds MDM MDM MDM Narrative Medical decision making narrative: Given the history I suspect this is vertigo as a side effect from Aricept. Supportive care advised and indicated. Therefore I gave her IV fluids, Zofran, meclizine here and watched her for a little while with the end result to try to get her to metabolize the drug and feel better enough to walk safely and go home. She and daughter were in agreement. Her vital signs are normal. 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 She is not having enough that she needs any other work-up in my opinion right now. No recent antibiotics or history of C. difficile. Observed for just over 2 hours, after the above medications and fluid she felt much better and was able to walk out of bed back and forth to the bathroom without any difficulty. Plan is to discharge her home with her daughter and she will avoid taking the Aricept and call her doctor for a potential replacement. Discharge Plan Triage Chief Complaint: General Illness ED Provider: Josh Garrett Dx/Rx/DC Orders Clinical Impression: Vertigo, Medication side effect Instructions: ED Vertigo, Unspecified Prescriptions: Continued biotin 2,500 mcg capsule 2,500 mcg PO DAILY calcium carbonate 500 MG tablet 1,000 mg PO DAILY@0800 Label Comments: supplements bimatoprost 1 DROP bottle 1 drp EACH EYE QHS Label Comments: eye drops multivitamin 1 TABLET tablet 1 tablet PO DAILY Label Comments: vitamins alendronate 35 MG tablet 35 mg PO CASTILLO hydroxychloroquine 200 MG tablet 300 mg PO DAILYCM cholecalciferol (vitamin D3) 1,000 UNIT tablet 1,000 unit PO DAILY Discontinued donepezil 5 mg tablet 5 mg PO DAILY Label Comments: TAKE 1 TABLET BY MOUTH ONCE DAILY AT BEDTIME Primary Care Provider: Bairon Engle Referrals: Bairon Engle MD [Primary Care Provider] - 3-5 Days Disposition Disposition: Home, Self Care
[2022-03-11] MEDS: Meclizine HCl 25 MG Tablet PO (02:17)
[2022-03-11] MEDS: Ondansetron 4 MG/2 ML Vial IV (02:29)
[2022-03-11] MEDS: 0.9% Normal Saline 1,000 ML 500 ML IV (02:30)
[2022-03-11 04:15] VITALS: BP 141/53; PULSE 76; RESP 18; O2SAT 97
== END 2022-03-11 04:18 | disposition home or self-care (01) ==
PROVIDERS: Emergency Provider Emergency Medicine; PCP Family Medicine; Visit Provider Emergency Medicine
DX: R42 Dizziness and giddiness (principal); T44.0X5A Adverse effect of anticholinesterase agents, initial encounter; M06.9 Rheumatoid arthritis, unspecified; R11.2 Nausea with vomiting, unspecified; R19.7 Diarrhea, unspecified; E78.00 Pure hypercholesterolemia, unspecified; K21.9 Gastro-esophageal reflux disease without esophagitis; Z79.899 Other long term (current) drug therapy
CPT/HCPCS: 96361; 96374; 99285; J2405

== ENCOUNTER 2022-04-24 13:25 | Observation (INO) | payer MEDICARE, SELFPAY ==
[2022-04-24] VITALS (7 sets, daily range): BP systolic 145–163; BP diastolic 52–68; PULSE 68–84; RESP 16–18; TEMP 36.3–36.8; O2SAT 96–100; BMI 17.7; BMI 17.5
--- NOTE | 2022-04-24 14:00 | EX.ED.DYSGE1 ---
HPI History of Present Illness Chief Complaint: GI Bleed Informant: patient Onset/Context/Timing Onset: Today Narrative Narrative: Patient presents secondary to GI bleed. She states she went to the restroom and noted a lot of bright red blood in the toilet. She tried to clean herself up but cannot tell where the blood is coming from. She denies any pain. She believes her last colonoscopy was nearly 2 years ago. She does not remember any abnormalities being found at that time. 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 She is not on any medication for this. She is not on anticoagulants. [facility] Medical History Anemia Back pain DVT (deep venous thrombosis) Easy bruising Esophageal dysphagia Family history of malignant neoplasm of colon in father Gastric reflux High cholesterol History of leukemia History of pain when walking Non-smoker Rheumatoid arthritis Syncope Wears dentures Wears glasses Home Medications bimatoprost 0.03 % drops with applicator, eyelash base 1 drp EACH EYE QHS 06/05/13 [History Last Taken Unknown] calcium carbonate 500 mg calcium (1,250 mg) tablet 1,000 mg PO DAILY@0800 06/05/13 [History Last Taken Unknown] multivitamin 1 tablet PO DAILY 09/30/13 [History Last Taken Unknown] alendronate 35 mg tablet 35 mg PO CASTILLO 04/24/19 [History Last Taken Unknown] cholecalciferol (vitamin D3) 25 mcg (1,000 unit) tablet 1,000 unit PO DAILY 04/24/19 [History Last Taken Unknown] hydroxychloroquine 200 mg tablet 300 mg PO DAILYCM 04/24/19 [History Last Taken Unknown] biotin 2,500 mcg capsule 2,500 mcg PO DAILY 06/26/20 [History Last Taken Unknown] Allergy/AdvReac Type Severity Reaction Status Date / Time aspirin Allergy Severe Hives Verified 04/24/22 13:25 ibuprofen Allergy Hives Verified 04/24/22 13:25 Penicillins AdvReac I PASS Verified 04/24/22 13:25 OUT Surgical History Hx of abdominal hysterectomy Hx of appendectomy Hx of arthroscopy of right knee Hx of arthroscopy of shoulder Hx of bilateral cataract extraction Hx of colonoscopy Hx of dilation and curettage Hx of toe surgery Hx of tonsillectomy Status post laparoscopic Warren fundoplication Social History household members: family Smoking Status: Never smoker alcohol intake: never ROS ROS ED Constitutional Constitutional ED: Denies chills or fever(s) Eyes Eyes: Denies change in vision or discharge from eye(s) ENT ENT ED: Denies discharge from eye(s), rhinorrhea or sore throat Cardiovascular Cardiovascular: Denies chest pain or palpitations Respiratory/Chest Respiratory/Chest: Denies cough or dyspnea Gastrointestinal Gastrointestinal: Denies abdominal pain, diarrhea, nausea or vomiting Genitourinary Genitourinary ED: Denies dysuria Musculoskeletal Musculoskeletal: Denies back pain or extremity pain Integumentary Denies Abrasions or rash Neurologic Neurologic: Denies headache(s) or weakness Allergic/Immunologic Allergic/Immunologic ED: Denies lip swelling or urticaria EXAM Physical Exam Const Vital Signs: 04/24/22 13:26 04/24/22 13:37 Temperature 98.0 F Temperature Source Temporal Pulse Rate 84 78 Respiratory Rate 18 16 Blood Pressure 163/67 H 145/65 H Blood Pressure Mean 99 91 Pulse Ox 99 98 Oxygen Delivery Method Room Air Room Air Positive well nourished and well developed General Appearance ED: well developed HEENT Reports normocephalic and head/scalp atraumatic Eyes PERRL and EOMs intact bilaterally Neck supple Chest Wall inspection of chest normal and palpation of chest normal Resp normal respiratory effort and clear to auscultation bilaterally Cardio regular rate and regular rhythm GI normal to inspection, nondistended, normoactive bowel sounds Palpation: soft Back/Spine no CVA tenderness Extremity normal to inspection Neuro oriented x3 and no sensory deficits noted Sensorium / Orientation: alert Motor Exam: strength 5/5 throughout Psych mental status grossly normal Skin no rashes or lesions noted MDM MDM MDM Narrative Medical decision making narrative: Lab work obtained to evaluate for leukocytosis, anemia, electrolyte derangement. Rectal examination performed which reveals bright red blood from the rectum. I do not appreciate any internal or external hemorrhoids on exam. Lab Data Attestation: I reviewed the patient's lab results. Labs: Laboratory Results - last 24 hr 04/24/22 04/24/22 04/24/22 13:45 13:45 14:32 WBC 5.5 RBC 3.91 L Hgb 12.3 Hct 38.0 MCV 97.2 MCH 31.5 MCHC 32.4 RDW Std Deviation 43.2 RDW Coeff of Katiana 12.1 Plt Count 206 MPV 11.2 Immature Gran % (Auto) 0.200 Neut % (Auto) 65.6 Lymph % (Auto) 20.2 [place] % (Auto) 8.0 Eos % (Auto) 5.1 H Baso % (Auto) 0.9 Absolute Neuts (auto) 3.6 Absolute Lymphs (auto) 1.11 Nucleated RBC % 0 PT 14.5 INR 1.2 APTT 28.7 Sodium 143 Potassium 3.8 Chloride 108 H Carbon Dioxide 30.0 Anion Gap 5 BUN 14 Creatinine 1.04 H Estim Creat Clear Calc 27.94 Est GFR (MDRD) Af Amer 65 Est GFR (MDRD) Non-Af 54 L BUN/Creatinine Ratio 13.5 Glucose 140 H Calcium 9.5 Total Bilirubin 0.40 Direct Bilirubin 0.12 AST 24 ALT 19 Alkaline Phosphatase 61 Total Protein 6.7 Albumin 3.5 Globulin 3.2 Treatment and Re-Evaluation Narrative: CBC reveals normal white count. Hemoglobin is currently 12.3. Chemistry studies unremarkable. LFTs unremarkable. Coags are normal. Patient still guaiac is positive. Given the patient does not have an obvious source of bleeding I am concerned about possible diverticular bleed. I recommended observation overnight for monitoring of her bleeding and hemoglobin levels. I did discuss the case with . Friend will be available as needed. I will speak with the hospitalist. Discharge Plan Triage Chief Complaint: GI Bleed ED Provider: Katerina Powell Dx/Rx/DC Orders Clinical Impression: Acute GI bleeding Prescriptions: No Action biotin 2,500 mcg capsule 2,500 mcg PO DAILY calcium carbonate 500 MG tablet 1,000 mg PO DAILY@0800 Label Comments: supplements bimatoprost 1 DROP bottle 1 drp EACH EYE QHS Label Comments: eye drops multivitamin 1 TABLET tablet 1 tablet PO DAILY Label Comments: vitamins alendronate 35 MG tablet 35 mg PO CASTILLO hydroxychloroquine 200 MG tablet 300 mg PO DAILYCM cholecalciferol (vitamin D3) 1,000 UNIT tablet 1,000 unit PO DAILY Primary Care Provider: Bairon Engle Referrals: Bairon Engle MD [Primary Care Provider] - Disposition Disposition: Acute Care Hospital [facility]
[2022-04-24 14:21] LABS: Absolute Lymphocyte Count 1.11 X10^3/uL (0.83-4.51); Absolute Neutrophil Count 3.6 X10^3/uL (2.0-7.7); Basophil# 0.05 X10^3/uL; Basophil% 0.9 % (0-1); Eosinophil# 0.28 X10^3/uL; Eosinophils% 5.1 % (0-5); Hemoglobin 12.3 g/dL (12.0-15.0); Lymphocyte # 1.11 X10^3/ul (0.83-4.51); Lymphocyte % 20.2 % (19-41); Mean Corp Hgb Conc 32.4 g/dL (32-36); Mean Corpuscular Hgb 31.5 pg (27.0-32.0); Mean Corpuscular Volume 97.2 fL (81-99); Mean Platelet Vol. 11.2 fl (6.2-12.0); Monocyte# 0.44 X10^3/uL; NRBC Flagged by Analyzer 0 % (0-5); Neutrophil % 65.6 % (47-70); Platelet Count 206 K/mm3 (150-450); RBC Distribution Width CV 12.1 % (11.6-14.6); RBC Distribution Width SD 43.2 fl (35.1-43.9); Red Blood Count 3.91 M/mm3 (4.2-5.4); White Blood Count 5.5 K/mm3 (4.4-11.0)
[2022-04-24 14:44] LABS: AST(SGOT) 24 U/L (15-37); Alanine Aminotransfer ALT/SGPT 19 U/L (13-56); Albumin, Serum 3.5 g/dL (3.2-5.0); Alkaline Phosphatase 61 U/L (45-117); Anion Gap 5 (5-15); BUN 14 mg/dL (7-18); BUN/Creat Ratio 13.5 RATIO (10-20); Bilirubin, Direct 0.12 mg/dL (0.00-0.30); Calcium,Total 9.5 mg/dL (8.5-10.1); Chloride 108 mmol/L (98-107); Creatinine, Serum 1.04 mg/dL (0.55-1.02); EST Glomerular Filtration Rate 54 mL/min (>60); Est Glom Filt Rate - Afr Amer 65 mL/min (>60); Estimated Creatinine Clearance 27.94 ml/min; Globulin 3.2 g/dL (2.2-4.2); Glucose 140 mg/dL (74-106); Potassium 3.8 mmol/L (3.5-5.1); Protein, Total 6.7 g/dL (6.4-8.2); Sodium Level 143 mmol/L (136-145)
[2022-04-24 14:58] LABS: International Normalized Ratio 1.2; Prothrombin Time (Protime)PT. 14.5 SECONDS (11.7-14.9)
[2022-04-24 14:59] LABS: Partial Thromboplast Time 28.7 Seconds (24.1-36.2)
--- NOTE | 2022-04-24 16:06 | NURSING ---
MED SURG OBS LAMONTE GI BLEED
--- NOTE | 2022-04-24 16:57 | HP.PCM.HOS_ITS ---
HPI - General General Date of Admission: 04/24/22 Date of Service: 04/24/22 Chief Complaint: one-time bright rectal bleed today HPI Narrative Jaye MARTINEZ, is a 86 F with no prior history of GI bleed was brought to ED by her daughter for acute bright red rectal bleed. Patient was about to ready to go outside her home and she went to bathroom. In the bathroom she had flush of bright red rectal bleed strawberry color. Whole toilet bowl was filled with bright blood. She states he never had GI bleed. Denies nausea vomiting. She stated she is in her usual state of health and this happened suddenly. No abdominal pain. Denies dizziness, near-syncope or syncope. No fever. She had colonoscopy in August [address] Jesus Manuel Coronado reported hemorrhoids on perianal exam and diverticulosis in sigmoid colon and descending colon. In ED, her vitals shows BP 163/61 but no tachycardia. Repeat BP was normal range as per age. H&H on baseline. [facility] Medical History Anemia Back pain DVT (deep venous thrombosis) Easy bruising Esophageal dysphagia Family history of malignant neoplasm of colon in father Gastric reflux High cholesterol History of leukemia History of pain when walking Non-smoker Rheumatoid arthritis Syncope Wears dentures Wears glasses Home Medications bimatoprost 0.03 % drops with applicator, eyelash base 1 drp EACH EYE QHS 06/05/13 [History Last Taken Unknown] alendronate 35 mg tablet 35 mg PO CASTILLO 04/24/19 [History Last Taken Unknown] hydroxychloroquine 200 mg tablet 300 mg PO DAILYCM 04/24/19 [History Last Taken Unknown] biotin 10,000 mcg capsule 10,000 mcg PO DAILY hair growth 04/24/22 [History Last Taken Unknown] xoyskeqibxva-xrbfkchi-fygody tablet 1 tab PO DAILY 04/24/22 [History Last Taken Unknown] rivastigmine tartrate 1.5 mg capsule 1.5 mg PO QHS memory 04/24/22 [History Last Taken Unknown] rosuvastatin 10 mg tablet (Crestor) 10 mg PO QODAY 04/24/22 [History Last Taken Unknown] Allergy/AdvReac Type Severity Reaction Status Date / Time aspirin Allergy Severe Hives Verified 04/24/22 13:25 ibuprofen Allergy Hives Verified 04/24/22 13:25 donepezil AdvReac Nausea Verified 04/24/22 16:23 Penicillins AdvReac I PASS Verified 04/24/22 13:25 OUT Family History no significant family his no significant family history Surgical History Hx of abdominal hysterectomy Hx of appendectomy Hx of arthroscopy of right knee Hx of arthroscopy of shoulder Hx of bilateral cataract extraction Hx of colonoscopy Hx of dilation and curettage Hx of toe surgery Hx of tonsillectomy Status post laparoscopic Warren fundoplication Social History household members: family Smoking Status: Never smoker alcohol intake: never ROS ROS Narrative Constitutional: Denies new or acute fatigue and weakness HEENT: Reports systems reviewed and no addt'l complaints, except as documented Respiratory/Chest: Denies chest pain, shortness of breath at rest or with exertion Gastrointestinal: As described in HPI Genitourinary: Denies burning urination or new urinary tract symptoms Musculoskeletal: Chronic mild arthritis joint pain of hand and knees and limited range of motion. History of rheumatoid arthritis. Neurologic: Denies seizure-like activity. No acute strokelike symptoms. skin: No ulcer. No rash Endocrinology: Reports systems reviewed and no addt'l complaints, except as documented Hematologic/Lymphatic: Reports systems reviewed and no addt'l complaints, except as documented Rest 14 ROS are negative except as mentioned in HPI Vital Signs Vital Signs Vital Signs: 04/24/22 13:26 04/24/22 13:37 04/24/22 16:02 Temperature 98.0 F 97.3 F L Temperature Source Temporal Temporal Pulse Rate 84 78 68 Respiratory Rate 18 16 18 Blood Pressure 163/67 H 145/65 H 153/58 H Blood Pressure Mean 99 91 89 Pulse Ox 99 98 99 Oxygen Delivery Method Room Air Room Air Room Air 04/24/22 16:17 Temperature 97.3 F L Temperature Source Temporal Pulse Rate 68 Respiratory Rate 18 Blood Pressure 153/58 H Blood Pressure Mean 89 Pulse Ox 99 Oxygen Delivery Method Room Air Weight Weight: 96 lb 14.4 oz Body Mass Index (BMI) 17.7 Physical Exam Narrative Physical exam General: Alert, Oriented x3, Cooperative, BMI 17.5 kg/m? HEENT: Atraumatic, PERRLA, EOMI, Normocephalic Oral: Oral mucosa moist. No Gingival or Mucosal Lesions/ Ulcerations Neck: Supple, No JVD, Negative Carotid Bruits Lungs: Air entry diminished in bilateral lung bases. No crepitation/rhonchi Cardiovascular: Regular rate, Regular Rhythm, Normal S1, Normal S2, systolic murmur over right second ICS and left second ICS Abdomen: Bowel Sounds Present, Soft, Non Tender, Non-Distended : No renal angle tenderness. No suprapubic tenderness. No dysuria. Extremities: No edema, Capillary Refill Less than 3 Seconds Skin: No rashes, No breakdown Musculoskeletal: No Tenderness to Palpation of Joints or Extremities, arthritis changes on bilateral wrist and MCP joints. Chronic knee joint arthritis. Neurological: Cranial nerves II-XII grossly intact, DTR 2+/4 and Symmetrical, Neuro grossly intact Psych/Mental Status: Normal Affect, Appropriate. Results Lab / Micro Data Result Diagrams: 04/24/22 13:45 04/24/22 13:45 Labs: Laboratory Results - last 24 hr 04/24/22 13:45: WBC 5.5, RBC 3.91 L, Hgb 12.3, Hct 38.0, MCV 97.2, MCH 31.5, MCHC 32.4, RDW Std Deviation 43.2, RDW Coeff of Katiana 12.1, Plt Count 206, MPV 11.2, Immature Gran % (Auto) 0.200, Neut % (Auto) 65.6, Lymph % (Auto) 20.2, Redwood % (Auto) 8.0, Eos % (Auto) 5.1 H, Baso % (Auto) 0.9, Absolute Neuts (auto) 3.6, Absolute Lymphs (auto) 1.11, Nucleated RBC % 0 04/24/22 13:45: Sodium 143, Potassium 3.8, Chloride 108 H, Carbon Dioxide 30.0, Anion Gap 5, BUN 14, Creatinine 1.04 H, Estim Creat Clear Calc 27.94, Est GFR (MDRD) Af Amer 65, Est GFR (MDRD) Non-Af 54 L, BUN/Creatinine Ratio 13.5, Glucose 140 H, Calcium 9.5, Total Bilirubin 0.40, Direct Bilirubin 0.12, AST 24, ALT 19, Alkaline Phosphatase 61, Total Protein 6.7, Albumin 3.5, Globulin 3.2 04/24/22 14:32: PT 14.5, INR 1.2, APTT 28.7 Micro: Microbiology 04/24/22 14:50 Stool Stool Occult Blood (SKY) - Final Occult Blood Positive Assessment & Plan Assessment/Plan (1) Acute GI bleeding: PLAN: Plan 1. Acute lower GI bleed, possible differential diverticular bleed/hemorrhoidal bleed: Patient is being admitted in PCU. IV fluid Ringer lactate started. Patient had normal saline in ED. H&H 12.3/38%. Patient H&H is on baseline. Previous hemoglobin has been 12.5-13.3 in 2021. Monitor clinically for further GI bleed. It seems mainly lower GI bleed but possibility of upper GI bleed with rapid transit therefore started on Protonix 40 mg IV daily. GI consulted from ED. Monitor H&H every 6 hourly. 2. History of GERD, esophageal dysplasia: Patient on not on PPI on home medication list. IV PPI started. 3. Rheumatoid arthritis, osteoporosis: Patient on hydroxychloroquine and alendronate. She takes 35 mg alendronate on every Friday. 4. History of DVT, chronic back pain, and degenerative arthritis: Home medication reconciliation done. DVT prophylaxis: Fungal prophylaxis contraindicated. Bilateral SCDs. Living will/advanced directive/end of life care: Patient does have living will or advanced directive. Her daughter, Mrs. Phillips is power of mergers and acquisitions attorney for health, present in ED. After discussion of benefits/risks procedures involved with full code, DNR CC arrest and DNR CC, the patient opted for full code. Patient does want artificial life support including intubation, tube feed, ventilator and/chest compression, central venous catheter, vasopressor and DC shock if needed Total time spent in [id number] encounter in discussion of advanced directive 16 minutes. Microbiology Past 72 Hours 04/24/22 14:50 Stool Stool Occult Blood (SKY) - Final Occult Blood Positive Laboratory Results 04/24/22 13:45: WBC 5.5, RBC 3.91 L, Hgb 12.3, Hct 38.0, MCV 97.2, MCH 31.5, MCHC 32.4, RDW Std Deviation 43.2, RDW Coeff of Katiana 12.1, Plt Count 206, MPV 11.2, Immature Gran % (Auto) 0.200, Neut % (Auto) 65.6, Lymph % (Auto) 20.2, Redwood % (Auto) 8.0, Eos % (Auto) 5.1 H, Baso % (Auto) 0.9, Absolute Neuts (auto) 3.6, Absolute Lymphs (auto) 1.11, Nucleated RBC % 0 04/24/22 13:45: Sodium 143, Potassium 3.8, Chloride 108 H, Carbon Dioxide 30.0, Anion Gap 5, BUN 14, Creatinine 1.04 H, Estim Creat Clear Calc 27.94, Est GFR (MDRD) Af Amer 65, Est GFR (MDRD) Non-Af 54 L, BUN/Creatinine Ratio 13.5, Glucose 140 H, Calcium 9.5, Total Bilirubin 0.40, Direct Bilirubin 0.12, AST 24, ALT 19, Alkaline Phosphatase 61, Total Protein 6.7, Albumin 3.5, Globulin 3.2 04/24/22 14:32: PT 14.5, INR 1.2, APTT 28.7 Charges/Coding Visit Charges Inpatient E&M: 29521 Init Hosp L3 Procedures Hospitalists Procedures: 59114 Advncd Care Plan 30 Min
[2022-04-24 17:29] LABS: Magnesium 2.4 mg/dL (1.6-2.6)
--- NOTE | 2022-04-24 18:09 | CON.PCM.GI_ITS ---
HPI Consult Data Date of Consult: 04/24/22 HPI Narrative Reason for Consultation: GI bleed HPI Narrative: Jaye MARTINEZ, is a 86 F who presents from home with a GI bleed. ? She states she went to the restroom and noted a lot of bright red blood in the toilet.? She tried to clean herself up but cannot tell where the blood is coming from.? She denies any pain.? She believes her last colonoscopy was nearly 2 years ago.? She does not remember any abnormalities being found at that time.? 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 She is not on any medication for this.? She is not on anticoagulants. From her colonoscopy report approximately 3 years ago and was discovered to have significant diverticular disease. On examination in the ED she noted hemorrhoidal disease. Her hemoglobin is 12.9 and her BUN/creatinine ratio was 14/1. [facility] Medical History Anemia Back pain DVT (deep venous thrombosis) Easy bruising Esophageal dysphagia Family history of malignant neoplasm of colon in father Gastric reflux High cholesterol History of leukemia History of pain when walking Non-smoker Rheumatoid arthritis Syncope Wears dentures Wears glasses Home Medications bimatoprost 0.03 % drops with applicator, eyelash base 1 drp EACH EYE QHS 06/05/13 [History Last Taken Unknown] alendronate 35 mg tablet 35 mg PO QWEEK 04/24/19 [History Last Taken Unknown] hydroxychloroquine 200 mg tablet 200 mg PO DAILYCM arthritis 04/24/19 [History Last Taken Unknown] biotin 10,000 mcg capsule 10,000 mcg PO DAILY hair growth 04/24/22 [History Last Taken Unknown] dofhqbboampy-vjwxgujm-ecjrsn tablet 1 tab PO DAILY 04/24/22 [History Last Taken Unknown] rivastigmine tartrate 1.5 mg capsule 1.5 mg PO QHS memory 04/24/22 [History Last Taken Unknown] rosuvastatin 10 mg tablet (Crestor) 10 mg PO QODAY cholesterol 04/24/22 [History Last Taken Unknown] Allergy/AdvReac Type Severity Reaction Status Date / Time aspirin Allergy Severe Hives Verified 04/24/22 13:25 ibuprofen Allergy Hives Verified 04/24/22 13:25 donepezil AdvReac Nausea Verified 04/24/22 16:23 Penicillins AdvReac I PASS Verified 04/24/22 13:25 OUT Family History no significant family his Surgical History Hx of abdominal hysterectomy Hx of appendectomy Hx of arthroscopy of right knee Hx of arthroscopy of shoulder Hx of bilateral cataract extraction Hx of colonoscopy Hx of dilation and curettage Hx of toe surgery Hx of tonsillectomy Status post laparoscopic Warren fundoplication Social History household members: family Smoking Status: Never smoker alcohol intake: never ROS ROS Narrative Constitutional: Denies new or acute fatigue and weakness HEENT: Reports systems reviewed and no addt'l complaints, except as documented Respiratory/Chest: Denies chest pain, shortness of breath at rest or with exertion Gastrointestinal: As described in HPI Genitourinary: Denies burning urination or new urinary tract symptoms Musculoskeletal: Chronic mild arthritis joint pain of hand and knees and limited range of motion. History of rheumatoid arthritis. Neurologic: Denies seizure-like activity. No acute strokelike symptoms. skin: No ulcer. No rash Endocrinology: Reports systems reviewed and no addt'l complaints, except as documented Hematologic/Lymphatic: Reports systems reviewed and no addt'l complaints, except as documented Rest 14 ROS are negative except as mentioned in HPI Physical Exam Narrative Physical exam General: Alert, Oriented x3, Cooperative, BMI 17.5 kg/m? HEENT: Atraumatic, PERRLA, EOMI, Normocephalic Oral: Oral mucosa moist. No Gingival or Mucosal Lesions/ Ulcerations Neck: Supple, No JVD, Negative Carotid Bruits Lungs: Air entry diminished in bilateral lung bases. No crepitation/rhonchi Cardiovascular: Regular rate, Regular Rhythm, Normal S1, Normal S2, systolic murmur over right second ICS and left second ICS Abdomen: Bowel Sounds Present, Soft, Non Tender, Non-Distended : No renal angle tenderness. No suprapubic tenderness. No dysuria. Extremities: No edema, Capillary Refill Less than 3 Seconds Skin: No rashes, No breakdown Musculoskeletal: No Tenderness to Palpation of Joints or Extremities, arthritis changes on bilateral wrist and MCP joints. Chronic knee joint arthritis. Neurological: Cranial nerves II-XII grossly intact, DTR 2+/4 and Symmetrical, Neuro grossly intact Psych/Mental Status: Normal Affect, Appropriate. Lab / Micro Data Result Diagrams: 04/24/22 13:45 04/24/22 13:45 Labs: Laboratory Results - last 24 hr 04/24/22 13:45: WBC 5.5, RBC 3.91 L, Hgb 12.3, Hct 38.0, MCV 97.2, MCH 31.5, MCHC 32.4, RDW Std Deviation 43.2, RDW Coeff of Katiana 12.1, Plt Count 206, MPV 11.2, Immature Gran % (Auto) 0.200, Neut % (Auto) 65.6, Lymph % (Auto) 20.2, Roosevelt % (Auto) 8.0, Eos % (Auto) 5.1 H, Baso % (Auto) 0.9, Absolute Neuts (auto) 3.6, Absolute Lymphs (auto) 1.11, Nucleated RBC % 0 04/24/22 13:45: Sodium 143, Potassium 3.8, Chloride 108 H, Carbon Dioxide 30.0, Anion Gap 5, BUN 14, Creatinine 1.04 H, Estim Creat Clear Calc 27.94, Est GFR (MDRD) Af Amer 65, Est GFR (MDRD) Non-Af 54 L, BUN/Creatinine Ratio 13.5, Glucose 140 H, Calcium 9.5, Total Bilirubin 0.40, Direct Bilirubin 0.12, AST 24, ALT 19, Alkaline Phosphatase 61, Total Protein 6.7, Albumin 3.5, Globulin 3.2 04/24/22 13:45: Magnesium 2.4 04/24/22 14:32: PT 14.5, INR 1.2, APTT 28.7 Micro: Microbiology 04/24/22 14:50 Stool Stool Occult Blood (SKY) - Final Occult Blood Positive Assessment & Plan Assessment/Plan (1) Acute GI bleeding: PLAN: The differential diagnosis for acute GI bleed would be diverticular bleed, stercoral ulcer, angiodysplasia, ischemic colitis. She should undergo colonoscopy. She was explained alternatives, risk, benefits including outstanding bleeding, infection, sepsis, perforation, need for emergent urgent . She will have an ASA of 3. Charges/Coding Visit Charges Inpatient E&M: 54673 Init Hosp L2
[2022-04-24 18:38] LABS: Hematocrit 38.3 % (37-47); Hemoglobin 12.4 g/dL (12.0-15.0)
[2022-04-24] MEDS: Lactated Ringers 1,000 ML 100 ML IV (19:10)
[2022-04-24] MEDS: Bisacodyl 5 MG Tablet 20 MG PO (19:12)
[2022-04-24] MEDS: Latanoprost 0.005% 1 Bottle 1 DRP EACH EYE (20:47)
[2022-04-24] MEDS: Polyethylene Glycol 3350 BOWEL PREP PO (21:26)
[2022-04-25] VITALS (8 sets, daily range): BP systolic 112–138; BP diastolic 49–63; PULSE 69–81; RESP 12–18; TEMP 36.3–36.7; O2SAT 95–99; BMI 17.5; BMI 17.1
[2022-04-25 00:41] LABS: Hematocrit 40.9 % (37-47); Hemoglobin 13.2 g/dL (12.0-15.0)
[2022-04-25 05:09] LABS: Absolute Lymphocyte Count 1.12 X10^3/uL (0.83-4.51); Absolute Neutrophil Count 4.8 X10^3/uL (2.0-7.7); Basophil# 0.04 X10^3/uL; Basophil% 0.6 % (0-1); Eosinophil# 0.23 X10^3/uL; Eosinophils% 3.3 % (0-5); Hematocrit 36.7 % (37-47); Hemoglobin 12.1 g/dL (12.0-15.0); Lymphocyte # 1.12 X10^3/ul (0.83-4.51); Lymphocyte % 16.2 % (19-41); Mean Corpuscular Hgb 31.8 pg (27.0-32.0); Mean Corpuscular Volume 96.3 fL (81-99); Mean Platelet Vol. 9.3 fl (6.2-12.0); Monocyte# 0.71 X10^3/uL; Monocyte% 10.3 % (0-10); NRBC Flagged by Analyzer 0 % (0-5); Neutrophil # 4.78 X10^3/uL (2.7-7.7); Neutrophil % 69.2 % (47-70); Platelet Count 227 K/mm3 (150-450); RBC Distribution Width CV 11.9 % (11.6-14.6); RBC Distribution Width SD 41.6 fl (35.1-43.9); Red Blood Count 3.81 M/mm3 (4.2-5.4); White Blood Count 6.9 K/mm3 (4.4-11.0)
[2022-04-25 05:47] LABS: Anion Gap 4 (5-15); BUN 11 mg/dL (7-18); BUN/Creat Ratio 11.4 RATIO (10-20); Chloride 110 mmol/L (98-107); Creatinine, Serum 0.97 mg/dL (0.55-1.02); EST Glomerular Filtration Rate 58 mL/min (>60); Est Glom Filt Rate - Afr Amer 70 mL/min (>60); Estimated Creatinine Clearance 29.65 ml/min; Glucose 101 mg/dL (74-106); Potassium 3.7 mmol/L (3.5-5.1); Sodium Level 141 mmol/L (136-145)
[2022-04-25] MEDS: Lactated Ringers 1,000 ML 15 ML IV (10:38)
--- NOTE | 2022-04-25 11:30 | COLBX_PTH ---
PATIENT: Jaye MARTINEZ LOC: [facility] U#:[id number] AGE/SX: 86/F ROOM: [facility] RE04/24/[address]: Dr. Sameera Jones DO : 1935 BED: 1 DIS: 04/25/2022 SPEC #: [id number] RECD: 04/25/22 12:17 STATUS: NICK REBebe #: [id number] JAGUAR: 04/25/22 11:[address]: Valdemar Sterling DEPT: SURGICAL PATHOLOGY RECD BY: Jackie Osborne ENTERED: 04/25/22 12:39 SP TYPE: COLON BX OTHR DR: DO Dr. Bairon Cutler MD Dr. Kathryn Lee, DO Dr. Prakash Chand, MD Tissues: COLON BIOPSY Procedures: Surgery Specimen Level IV Comments: @ Ordering doctor for SUIV edited from to @ by RUMA at 04/25/22 1328 @ Submitting doctor edited from to @ by KASSIEOD at 04/25/22 1328 HEADER OPERATION: Colonoscopy (MAC), biopsy PRE-OP DIAGNOSIS: Acute GI bleeding TISSUE SUBMITTED: Splenic flexure biopsy MICROSCOPIC DIAGNOSIS Colon at splenic flexure, biopsy: Focal acute colitis. See comment. AM:cesar 04/26/2022 COMMENT Sections show focal cryptitis without crypt abscesses, granulomas, transmural lymphoid aggregates or fissuring ulcers. Clinical correlation is suggested. MICROSCOPIC DESCRIPTION Slides are reviewed. GROSS DESCRIPTION Received in fixative is one container labeled with the patient's name and designated splenic flexure biopsy. The specimen consists of two irregular fragments of light hernandez soft tissue that in aggregate measure 0.6 x 0.3 x 0.1 cm. The specimen is totally submitted in one cassette. / STEF:cesar 04/25/2022 TC:2 CPT: 92246
--- NOTE | 2022-04-25 12:20 | OP.COLON_ITS ---
Patient Name: Jaye Carmen Procedure Date: 04/25/2022 11:27 AM Date of : 1935 Age: 86 Procedure: Colonoscopy Indications: Hematochezia Providers: Valdemar Sterling DO Medicines: Monitored Anesthesia Care Patient Profile: This is an 86 year old female. Refer to note in patient chart for documentation of history and physical. Last Colonoscopy: within the past 3 years. Complications: No immediate complications. Procedure: Pre-Anesthesia Assessment: - Prior to the procedure, a History and Physical was performed, and patient medications and allergies were reviewed. The patient is competent. The risks and benefits of the procedure and the sedation options and risks were discussed with the patient. All questions were answered and informed consent was obtained. Patient identification and proposed procedure were verified by the physician in the pre-procedure area. Mental Status Examination: alert and oriented. Airway Examination: normal oropharyngeal airway and neck mobility. CV Examination: normal. Prophylactic Antibiotics: The patient does not require prophylactic antibiotics. Prior Anticoagulants: The patient has taken no previous anticoagulant or antiplatelet agents. After reviewing the risks and benefits, the patient was deemed in satisfactory condition to undergo the procedure. The anesthesia plan was to use monitored anesthesia care (MAC). Immediately prior to administration of medications, the patient was re-assessed for adequacy to receive sedatives. The heart rate, respiratory rate, oxygen saturations, blood pressure, adequacy of pulmonary ventilation, and response to care were monitored throughout the procedure. The physical status of the patient was re-assessed after the procedure. After I obtained informed consent, the scope was passed under direct vision. Throughout the procedure, the patient's blood pressure, pulse, and oxygen saturations were monitored continuously. The colonoscope was introduced through the anus and advanced to the terminal ileum. The colonoscopy was performed without difficulty. The patient tolerated the procedure well. The quality of the bowel preparation was good. Scope In: 11:46:34 AM Scope Withdrawal Time 0 hours 10 minutes 37 seconds Scope Out: 12:05:12 PM Total Procedure Duration Time 0 hours 18 minutes 38 seconds Findings: The perianal and digital rectal examinations were normal. Multiple small-mouthed diverticula were found in the recto-sigmoid colon, sigmoid colon and descending colon. Segmental moderate inflammation characterized by congestion (edema), erosions, erythema and target ulcerations was found in the sigmoid colon. Biopsies were taken with a cold forceps for histology. Verification of patient identification for the specimen was done. Estimated blood loss was minimal. The terminal ileum appeared normal. Impression: - Diverticulosis in the recto-sigmoid colon, in the sigmoid colon and in the descending colon. - Segmental moderate inflammation was found in the sigmoid colon secondary to ischemic colitis. Biopsied. - The examined portion of the ileum was normal. Recommendation: - Discharge patient to home. - Resume previous diet. - Continue present medications. - Await pathology results. - No repeat colonoscopy due to current age (66 years or older). Procedure Code(s): --- Professional --- 53440, Colonoscopy, flexible; with biopsy, single or multiple CPT copyright 2017 [employer]. All rights reserved. The codes documented in this report are preliminary and upon certified coder review may be revised to meet current compliance requirements. Valdemar Sterling DO 04/25/2022 12:20:09 PM This report has been signed electronically. Number of Addenda: 0 Note Initiated On: 04/25/2022 11:27 AM
--- NOTE | 2022-04-25 12:20 | OP.CCLET_ITS ---
04/25/2022 Bairon Engle MD Re : Colonoscopy procedure for Jaye Carmen Dear Dr. Engle This procedure was performed on April. My impressions and recommendations are as follows: Impressions : - Diverticulosis in the recto-sigmoid colon, in the sigmoid colon and in the descending colon. - Segmental moderate inflammation was found in the sigmoid colon secondary to ischemic colitis. Biopsied. - The examined portion of the ileum was normal. Recommendations : - Discharge patient to home. - Resume previous diet. - Continue present medications. - Await pathology results. - No repeat colonoscopy due to current age (66 years or older). My findings are described in the full procedure note, which is enclosed. If I can be of further assistance, please feel free to contact me at . Sincerely, Valdemar Sterling, 04/25/2022 12:20:09 PM This report has been signed electronically.
--- NOTE | 2022-04-25 13:15 | DS.PCM_ITS ---
Providers Date of Admission: 04/24/22 Date of Discharge: 04/25/22 Primary Care Physician: Dr. Bairon Engle MD Consultations 04/24/22 17:18 Consult: Gastroenterology Routine Consulting Provider: [facility] Reason for Consult: Lower GI Bleed EMERGENT Consult: No MD Notified: Yes Date Notified: 04/24/22 Time Notified: 16:56 Method of Notification: ED Physician Initiated Reason For Visit: LOWER GI BLEED Diagnosis Discharge Diagnosis (1) Acute GI bleeding: Status: Acute Code(s): K92.2 - Gastrointestinal hemorrhage, unspecified Medications at Discharge Home Medications bimatoprost 0.03 % drops with applicator, eyelash base 1 drp EACH EYE QHS 06/05/13 alendronate 35 mg tablet 35 mg PO QWEEK 04/24/19 hydroxychloroquine 200 mg tablet 200 mg PO DAILYCM arthritis 04/24/19 biotin 10,000 mcg capsule 10,000 mcg PO DAILY hair growth 04/24/22 tvtdxmqafbiz-trljozbf-juhiee tablet 1 tab PO DAILY 04/24/22 rivastigmine tartrate 1.5 mg capsule 1.5 mg PO QHS memory 04/24/22 rosuvastatin 10 mg tablet (Crestor) 10 mg PO QODAY cholesterol 04/24/22 Hospital Course Operations None Procedures Colonoscopy Summary of Care Provided Minutes Spent on Discharge: 28 Hospital Course: Mrs. Carmen is a an 86-year-old white female with no prior history of gastrointestinal issues who was brought to the emergency department by her daughter after having acute bright red blood per rectum. She evidently was getting ready to go outside and went to the bathroom. In the bathroom she had a flush of bright red rectal bleeding that filled the whole toilet bowl with sarina ght red blood. She is not on any anticoagulation or antiplatelet therapy. She had no abdominal pain. She stated she was in her normal state of health and felt fine when this happened and had no pain during the episode. She denied any dizziness, near-syncope or lightheadedness. Patient reports her last colonoscopy was done in August [address] Coronado and he reported hemorrhoids on perianal exam and diverticulosis in the sigmoid colon and descending colon at that time. Vital signs were unremarkable during the entire hospitalization. CBC on admission was unremarkable with an initial hemoglobin of 12.3. Hemoglobin was drawn 3 times subsequently following that and was found to be 12.4, 13.2, and 12.1. Patient was prepped by gastroenterology for colonoscopy to be done on 04/25/2022. Her rectal bleeding had resolved with the colon prep. And on the morning of 04/25/2022 she was not having any blood in her stool. She was taken for colonoscopy and she was found to have diverticulosis in the rectosigmoid, sigmoid, and descending colon. A small segmental area of moderate inflammation was found in the sigmoid colon consistent with ischemic colitis. This area was biopsied but no active bleeding was noted. Per discussion with gastroenterology given her stable hemoglobin and findings on colonoscopy they felt she was be able to be discharged home. No medication changes were made. They recommended for her to resume her regular diet and await pathology results. No repeat colonoscopy was recommended due to her advanced age at 86 years old. She was able to be discharged home in stable condition on 04/25/2022. I have asked her to follow-up with her primary care physician within the next [address] Sterling's office should call her with the biopsy results. Discharge diagnoses: Acute hematochezia secondary to ischemic colitis-resolved History of anemia-no current anemia identified History of DVT-remote History of dysphagia GERD Hyperlipidemia History of leukemia Rheumatoid arthritis Physical Exam Const alert, oriented x3 and no apparent distress Constitutional Narrative: Thin, elderly white female sitting up in bed, appears comfortable nontoxic General Appearance: cooperative, comfortable, well kempt and well developed Orientation / Consciousness: awake, oriented to person, oriented to place and oriented to time Exam Limitations: no limitations Nutritional Appearance: thin HEENT normocephalic, head/scalp atraumatic and moist oral mucous membranes HEENT Narrative: Mild to moderate hearing loss, dentition is fair for age, Mallampati is 2 Resp normal respiratory effort, no retractions, no use of accessory muscles and clear to auscultation bilaterally Auscultation: Negative for crackles, rhonchi or wheezes Cardio regular rate, regular rhythm, S1 normal heart sound, S2 normal heart sound, no murmurs, no rub, no gallops and no clicks GI normal to inspection, nondistended, normoactive bowel sounds, soft to palpation and non-tender Extremity no clubbing, cyanosis or edema Extremity Narrative: 2+ pedal pulses Neuro oriented x3, moves all extremities and no focal motor deficits Speech: speech normal Psych affect normal Psych Narrative: Very pleasant/appropriately interactive Weight / BMI Weight Weight: 42.4 kg Body Mass Index (BMI) 17.1 ABG / Lab / Microbiology Data Result Diagrams: 04/25/22 04:55 04/25/22 04:55 Laboratory: Laboratory Results - last 24 hr 04/24/22 13:45: WBC 5.5, RBC 3.91 L, Hgb 12.3, Hct 38.0, MCV 97.2, MCH 31.5, MCHC 32.4, RDW Std Deviation 43.2, RDW Coeff of Katiana 12.1, Plt Count 206, MPV 11.2, Immature Gran % (Auto) 0.200, Neut % (Auto) 65.6, Lymph % (Auto) 20.2, [place] % (Auto) 8.0, Eos % (Auto) 5.1 H, Baso % (Auto) 0.9, Absolute Neuts (auto) 3.6, Absolute Lymphs (auto) 1.11, Nucleated RBC % 0 04/24/22 13:45: Sodium 143, Potassium 3.8, Chloride 108 H, Carbon Dioxide 30.0, Anion Gap 5, BUN 14, Creatinine 1.04 H, Estim Creat Clear Calc 27.94, Est GFR (MDRD) Af Amer 65, Est GFR (MDRD) Non-Af 54 L, BUN/Creatinine Ratio 13.5, Glucose 140 H, Calcium 9.5, Total Bilirubin 0.40, Direct Bilirubin 0.12, AST 24, ALT 19, Alkaline Phosphatase 61, Total Protein 6.7, Albumin 3.5, Globulin 3.2 04/24/22 13:45: Magnesium 2.4 04/24/22 14:32: PT 14.5, INR 1.2, APTT 28.7 04/24/22 18:16: Hgb 12.4, Hct 38.3 04/25/22 00:34: Hgb 13.2, Hct 40.9 04/25/22 04:55: WBC 6.9, RBC 3.81 L, Hgb 12.1, Hct 36.7 L, MCV 96.3, MCH 31.8, MCHC 33.0, RDW Std Deviation 41.6, RDW Coeff of Katiana 11.9, Plt Count 227, MPV 9.3, Immature Gran % (Auto) 0.400, Neut % (Auto) 69.2, Lymph % (Auto) 16.2 L, [place] % (Auto) 10.3 H, Eos % (Auto) 3.3, Baso % (Auto) 0.6, Absolute Neuts (auto) 4.8, Absolute Lymphs (auto) 1.12, Nucleated RBC % 0 04/25/22 04:55: Sodium 141, Potassium 3.7, Chloride 110 H, Carbon Dioxide 27.0, Anion Gap 4 L, BUN 11, Creatinine 0.97, Estim Creat Clear Calc 29.65, Est GFR (MDRD) Af Amer 70, Est GFR (MDRD) Non-Af 58 L, BUN/Creatinine Ratio 11.4, Glucose 101, Calcium 9.0 Microbiology: Microbiology 04/24/22 23:04 Stool Stool Lactoferrin - Final 04/24/22 23:04 Stool Enteric Bacteriology - Final 04/24/22 23:04 Stool C. difficile DNA Amplification - Final 04/24/22 14:50 Stool Stool Occult Blood (SKY) - Final Occult Blood Positive D/C Instructions Discharge Diet: No restrictions Discharge Activity: Return to Normal Activity Meaningful Use Info Meaningful Use Diagnoses (Choose all that apply): None applicable Discharge Plan Admission Admit Date/Time: 04/24/22 16:52 Primary Reason for Your Visit: rectal bleeding from small area of ischemic colitis Attending Provider: Sameera Jones Primary Care Provider: Bairon Engle Consulting Providers: Eduardo Espinal ; Avni Garcia Instructions Additional Instructions / Restrictions: 1. Small area of ischemic colitis noted on colonoscopy. No active bleeding during colonoscopy. Okay to discharge home but avoid aspirin, nonsteroidal anti-inflammatory medications such as ibuprofen and naproxen. Discharge Orders/Prescriptions Prescriptions: Continued bimatoprost 1 DROP bottle 1 drp EACH EYE QHS Label Comments: eye drops alendronate 35 MG tablet 35 mg PO QWEEK Rx Instructions: takes once a week on friday hydroxychloroquine 200 MG tablet 200 mg PO DAILYCM vhidljspcdrc-lrwvnqnk-qslppu Tablet 1 tab PO DAILY rosuvastatin [Crestor] 10 mg Tablet 10 mg PO QODAY rivastigmine tartrate 1.5 mg Capsule 1.5 mg PO QHS biotin 10,000 mcg Capsule 10,000 mcg PO DAILY Referrals / Follow Up: Bairon Engle MD [Primary Care Provider] - Within 2 Weeks Valdemar Sterling DO [Med Staff - Active Staff] - See Referral Note (As needed- office should call with results of biopsy done during colonoscopy) Disposition Disposition (needs filled in before D/C Order can be placed): Home, Self Care Charges/Coding Visit Charges Inpatient E&M: 86440 Disch Hosp
--- NOTE | 2022-04-25 14:15 | CASEMGMT ---
RN YULISSA Face to Face with patient for initial transition planning/care coordination assessment. RN CM introduced self and role at [facility]. Patient lying in bed, alert and oriented, daughter at bedside. Patient willing to participate in assessment and is able to answer all questions appropriately. Care providers, pharmacy, and demographics verified. Patient wishes to discharge home, denies need for home health at this time. Patient states she has no further needs or concerns at this time. CM to follow for discharge planning needs that may arise. PCP: Oniel Specialists: RA Meri Guzmán Pharmacy: [facility] Insurance: [employer] [facility] Prescription Benefit: yes Living Will/HPOA: daughter Jacqueline Fowler HPOA LNOK: daughters Living Arrangements: Patient lives alone in a single story condo with 1 step and grab bar to enter the home. Patient states she is independent at home. Transportation: self, daugther DME/HHC: Patient states she has raised toilet at home. Patient denies previous HHC or SNF. Patient states she will be staying with her daughter for a few days after discharge. Disposition Plan: Patient to discharge to daughter's home with family support and follow-up plans in place. Maral ARGUELLO, RN, CM
== END 2022-04-25 16:36 | disposition home or self-care (01) | DRG 393 ==
LOC: ED 16:12 → PCU 16:22
PROVIDERS: Internal Medicine Gastroenterology; Admitting Provider Internal Medicine; Emergency Provider Emergency Medicine; PCP Family Medicine; Visit Provider Internal Medicine
PROC: 0DJD8ZZ Inspection of Lower Intestinal Tract, Via Natural or Artificial Opening Endoscopic (ICD-10-PCS; CPT 45378; principal; 2022-04-25 11:25)
DX: K55.051 Focal (segmental) acute (reversible) ischemia of intestine, part unspecified (principal); M06.9 Rheumatoid arthritis, unspecified; D69.3 Immune thrombocytopenic purpura; K57.31 Diverticulosis of large intestine without perforation or abscess with bleeding; E78.00 Pure hypercholesterolemia, unspecified; K21.9 Gastro-esophageal reflux disease without esophagitis; M81.0 Age-related osteoporosis without current pathological fracture; R13.14 Dysphagia, pharyngoesophageal phase; Z79.899 Other long term (current) drug therapy; Z86.718 Personal history of other venous thrombosis and embolism; Z85.6 Personal history of leukemia; Z80.0 Family history of malignant neoplasm of digestive organs; Z79.83 Long term (current) use of bisphosphonates
CPT/HCPCS: 45380; 36415; 80048; 80076; 82274; 83630; 83735; 85014; 85018; 85025; 85610; 85730; 87177; 87209; 87493; 87506; 88305; 93005; 94668; 96361; 96365; 96366; 97802; 99221; 99252; 99285; J7120; A4216; G0378; G0463; J2405

== ENCOUNTER → 2022-05-15 | Outpatient (CLI) | payer MEDICARE, SELFPAY ==
[2022-05-15 12:07] LABS: Absolute Lymphocyte Count 1.17 X10^3/uL (0.83-4.51); Absolute Neutrophil Count 3.8 X10^3/uL (2.0-7.7); Basophil# 0.03 X10^3/uL; Basophil% 0.5 % (0-1); Eosinophil# 0.23 X10^3/uL; Lymphocyte # 1.17 X10^3/ul (0.83-4.51); Lymphocyte % 20.6 % (19-41); Mean Corp Hgb Conc 32.5 g/dL (32-36); Mean Corpuscular Hgb 32.1 pg (27.0-32.0); Mean Corpuscular Volume 98.8 fL (81-99); Mean Platelet Vol. 9.7 fl (6.2-12.0); Monocyte# 0.49 X10^3/uL; Monocyte% 8.6 % (0-10); NRBC Flagged by Analyzer 0 % (0-5); Neutrophil # 3.75 X10^3/uL (2.7-7.7); Neutrophil % 66.1 % (47-70); Platelet Count 205 K/mm3 (150-450); RBC Distribution Width CV 12.6 % (11.6-14.6); RBC Distribution Width SD 45.9 fl (35.1-43.9); Red Blood Count 4.05 M/mm3 (4.2-5.4); White Blood Count 5.7 K/mm3 (4.4-11.0)
[2022-05-15 12:49] LABS: ALB/GLOB Ratio 1.2 RATIO (0.9-2.4); AST(SGOT) 22 U/L (15-37); Alanine Aminotransfer ALT/SGPT 22 U/L (13-56); Albumin, Serum 3.9 g/dL (3.2-5.0); Alkaline Phosphatase 66 U/L (45-117); Anion Gap 5 (5-15); BUN 12 mg/dL (7-18); BUN/Creat Ratio 11.4 RATIO (10-20); Calcium,Total 9.6 mg/dL (8.5-10.1); Chloride 107 mmol/L (98-107); Creatinine, Serum 1.05 mg/dL (0.55-1.02); EST Glomerular Filtration Rate 53 mL/min (>60); Est Glom Filt Rate - Afr Amer 64 mL/min (>60); Globulin 3.3 g/dL (2.2-4.2); Glucose 93 mg/dL (74-106); Potassium 4.1 mmol/L (3.5-5.1); Protein, Total 7.2 g/dL (6.4-8.2); Sodium Level 142 mmol/L (136-145)
== END | disposition home or self-care (01) ==
LOC: MTLAB 10:44
PROVIDERS: PCP Family Medicine; Referring Provider Internal Medicine Rheumatology; Visit Provider Internal Medicine Rheumatology
DX: M06.4 Inflammatory polyarthropathy (principal); M15.9 Polyosteoarthritis, unspecified
CPT/HCPCS: 36415; 80053; 85025

== ENCOUNTER → 2022-11-30 | Outpatient (CLI) | payer MEDICARE, SELFPAY ==
[2022-11-30 10:14] LABS: Absolute Lymphocyte Count 1.06 X10^3/uL (0.83-4.51); Absolute Neutrophil Count 3.7 X10^3/uL (2.0-7.7); Basophil# 0.04 X10^3/uL; Basophil% 0.7 % (0-1); Eosinophil# 0.35 X10^3/uL; Eosinophils% 6.2 % (0-5); Hematocrit 40.2 % (37-47); Hemoglobin 13.2 g/dL (12.0-15.0); Lymphocyte # 1.06 X10^3/ul (0.83-4.51); Lymphocyte % 18.7 % (19-41); Mean Corp Hgb Conc 32.8 g/dL (32-36); Mean Corpuscular Hgb 32.1 pg (27.0-32.0); Mean Corpuscular Volume 97.8 fL (81-99); Mean Platelet Vol. 9.1 fl (6.2-12.0); Monocyte# 0.47 X10^3/uL; Monocyte% 8.3 % (0-10); NRBC Flagged by Analyzer 0 % (0-5); Neutrophil # 3.74 X10^3/uL (2.7-7.7); Neutrophil % 65.9 % (47-70); Platelet Count 208 K/mm3 (150-450); RBC Distribution Width CV 12.2 % (11.6-14.6); RBC Distribution Width SD 43.8 fl (35.1-43.9); Red Blood Count 4.11 M/mm3 (4.2-5.4); White Blood Count 5.7 K/mm3 (4.4-11.0)
[2022-11-30 10:43] LABS: ALB/GLOB Ratio 1.2 RATIO (0.9-2.4); AST(SGOT) 22 U/L (15-37); Alanine Aminotransfer ALT/SGPT 22 U/L (13-56); Albumin, Serum 3.7 g/dL (3.2-5.0); Alkaline Phosphatase 115 U/L (45-117); Anion Gap 1 (5-15); BUN 14 mg/dL (7-18); BUN/Creat Ratio 13.7 RATIO (10-20); Chloride 108 mmol/L (98-107); Creatinine, Serum 1.02 mg/dL (0.55-1.02); EST Glomerular Filtration Rate 55 mL/min (>60); Est Glom Filt Rate - Afr Amer 66 mL/min (>60); Globulin 3.2 g/dL (2.2-4.2); Glucose 90 mg/dL (74-106); Potassium 4.4 mmol/L (3.5-5.1); Protein, Total 6.9 g/dL (6.4-8.2); Sodium Level 140 mmol/L (136-145)
== END | disposition home or self-care (01) ==
LOC: MTLAB 09:31 → LAB 09:32
PROVIDERS: PCP Family Medicine; Referring Provider Internal Medicine Rheumatology; Visit Provider Internal Medicine Rheumatology
DX: M06.4 Inflammatory polyarthropathy (principal); M15.9 Polyosteoarthritis, unspecified; Z79.899 Other long term (current) drug therapy
CPT/HCPCS: 36415; 80053; 85025

== ENCOUNTER → 2023-01-15 | Outpatient (CLI) | payer MEDICARE, SELFPAY ==
--- NOTE | 2023-01-15 12:20 | CDU_ITS ---
Reason For Study: Stenosis Rt. Velocities/BP Lt. Velocities/BP Prox CCA 112/4.2 cm/sec. Prox CCA 79.5/9.1 cm/sec. Mid CCA 70.4/9 cm/sec. Mid CCA 70.7/10.2 cm/sec. Dist CCA 51.9/9 cm/sec. Dist CCA 63/8 cm/sec. Prox ICA 43.7/9.7 cm/sec. Prox ICA 61.9/14.6 cm/sec. Mid ICA 119.3/14.5 cm/sec. Mid ICA 82.8/23.4 cm/sec. Dist ICA 154.3/27 cm/sec. Dist ICA 113.6/26.6 cm/sec. Rt. ICA/CCA = 2.19. Lt. ICA/CCA = 1.61. Prox ECA 101.1 cm/sec. Prox ECA 89.4 cm/sec. Rt. Vert. 80.9/13.3 cm/sec. Lt. Vert. 59.7/10.2 cm/sec. Right Extracranial There is homogeneous, smooth atherosclerotic plaque noted in the right common carotid artery. There is homogeneous, smooth atherosclerotic plaque noted in the right internal carotid artery. The right internal carotid artery is very tortuous. There is intimal thickening but no significant atherosclerotic plaque noted in the right external carotid artery. Antegrade flow is noted in the right vertebral artery. Left Extracranial There is homogeneous, smooth atherosclerotic plaque noted in the left common carotid artery. There is homogeneous, smooth atherosclerotic plaque noted in the left internal carotid artery. The left internal carotid artery is very tortuous. There is homogeneous, smooth atherosclerotic plaque noted in the left external carotid artery. Antegrade flow is noted in the left vertebral artery. Procedure This is a Carotid Duplex examination using B-mode, color flow and specral Doppler. Carotid Duplex 95031. Exam performed in department. VL/Carotid Duplex Ultrasound Interpretation Summary Smooth plaque within the right internal carotid artery with velocity elevation in the distal internal carotid artery consistent with 50 to 69% stenosis. The proximal right internal carotid artery however has normal flow velocity. The right internal carotid artery is tortuous Less than 50% stenosis right external carotid artery Smooth plaque at the proximal left internal carotid artery with less than 50% s tenosis Tortuous left internal carotid artery Less than 50% stenosis left external carotid artery Patent and antegrade vertebral arteries bilaterally Ordering Physician: Bairon Engle Referring Physician: Bairon Engle Performed By: Maral Kim RVT
== END | disposition home or self-care (01) ==
LOC: CVS 12:20
PROVIDERS: PCP Family Medicine; Referring Provider Family Medicine; Visit Provider Family Medicine
DX: I65.23 Occlusion and stenosis of bilateral carotid arteries (principal)
CPT/HCPCS: 93880

== ENCOUNTER 2024-02-27 17:20 | Emergency (ER) | payer MEDICARE, SELFPAY ==
[2024-02-27 17:20] VITALS: BP 154/73; PULSE 77; RESP 16; TEMP 36.6; O2SAT 98; BMI 17.5
--- NOTE | 2024-02-27 17:45 | CT_ITS ---
INDICATION: fall EXAMINATION: CT BRAIN - CT Head or Brain W/O Contrast Injection TECHNIQUE: Multiple axial images were obtained of the head without intravenous contrast. A radiation dose optimization technique was used for this scan. IV Contrast dosage and agent: None. RADIATION DOSAGE (If Supplied By Facility): CTDIvol = ( 44.99 ) mGy, DLP = ( 798.92 ) mGycm COMPARISON: MRI examination on 04/23/2021 FINDINGS: HEMISPHERES: 1. The cerebral parenchyma, ventricular system, subarachnoid spaces have normal configuration and density. There is a normal gyral pattern. There is normal mejias/white differentiation. No midline shift.. 2. Diffuse involutional changes. Chronic microvascular deep white matter disease present. 3. No intraparenchymal mass, hemorrhage, or acute territorial infarct. CEREBELLUM - BRAINSTEM: The cerebellum, brainstem, basilar and suprasellar cisterns have normal appearance. No Chiari malformation. PITUITARY: Infundibulum and pituitary have normal configuration. Midline structures appear normal. CSF SPACES: Appropriate for age. No hydrocephalus. Basal cisterns are patent. VESSELS: 1. Moderate carotid vascular calcifications bilaterally. 2. No hyperdense vascular signs noted.. ORBITS AND PARANASAL SINUSES: 1. Normal appearance of the bony orbits. Normal appearance of the globes and retrobulbar soft tissues.. 2. Ethmoid sinus disease greater on the LEFT than RIGHT. BONY ELEMENTS: Bony elements of the cranial vault, facial skeleton and skull base have normal appearance. SCALP AND SOFT TISSUES: Normal appearance of the soft tissues of the scalp and the visualized face OTHER: None ASPECTS Score for Acute Strokes: 10 CT/Brain/Head without Contrast IMPRESSION: 1. Stable exam 2. Diffuse involutional changes and chronic microvascular deep white matter disease. 3. No intracranial mass, hemorrhage or acute territorial infarct. 4. No fractures. 5. No radiographically significant sinus disease.. Electronically Signed: Duc Gregory MD at 19:10 EST ,
--- NOTE | 2024-02-27 17:45 | CT_ITS ---
INDICATION: fall EXAMINATION: CT CERVICAL SPINE - CT Spine Cervical W/O Contrast Injection TECHNIQUE: Helically acquired images were obtained of the cervical spine. 2D reformatted images were reviewed. A radiation dose optimization technique was used for this scan. Noncontrast images obtained. IV Contrast dosage and agent: None. Radiation Dose (provided by facility) CTDIvol (NA ) mGy, DLP ( NA) mGy-cm COMPARISON: : No relevant prior comparison study available FINDINGS: VERTEBRAE: No fracture or traumatic subluxation. No discrete lytic or blastic abnormality. Normal alignment. Normal craniocervical junction and cervicothoracic junction. Normal appearance of the odontoid process. Incidental note of a hemangioma at C5. DISCS and SPINAL CANAL: Disc heights are preserved. No critical stenosis. NECK SOFT TISSUES: No prevertebral soft tissue swelling. There is no cervical adenopathy. LUNG APICES: Asymmetric pleural thickening at the LEFT apex without underlying mass. CERVICAL CAROTID: No significant vascular calcifications. CT/Spine Cervical without Contras IMPRESSION: 1. No evidence of acute cervical spinal fracture or spondylolisthesis. 2. Incidental note of LEFT apical pleural thickening. No underlying mass is noted. Electronically Signed: Duc Gregory MD at 19:16 EST ,
--- NOTE | 2024-02-27 17:45 | CT_ITS ---
INDICATION: fall EXAMINATION: CT FACIAL BONES - CT Maxillofacial W/O Contrast Injection TECHNIQUE: Helically acquired images were obtained of the facial bones. A radiation dose optimization technique was used for this scan. IV Contrast dosage and agent: None. Radiation Dose (provided by facility) CTDIvol (29.38 ) mGy, DLP ( 606.22) mGy-cm COMPARISON: None. FINDINGS: ORBITS: 1. Normal appearance the bony duval the orbits. Soft tissue planes including preseptal and post septal soft tissue planes have normal appearance. Normal appearance of the globes, ocular lenses and optic nerves. NASAL SKELETON: Normal, no fractures noted. Nasal septum is near midline. PARANASAL SINUSES: [Ethmoid mucosal thickening. Remaining paranasal sinuses are clear. SKULL BASE AND ZYGOMATIC ARCHES: Normal, normal alignment, no fractures noted. VISUALIZED MANDIBLE: 1. Normal configuration of the mandible without fracture however significant TMJ degenerative changes. 2. The patient is partially edentulous. Visualized dentition appears intact. OTHER: Normal appearance of the deep spaces of the head and visualized upper neck. Airway has normal appearance. CT/Sinus/Facial Bone IMPRESSION: 1. No maxillofacial fractures noted. 2. [There is moderate LEFT Ethmoid mucosal thickening. Remaining paranasal sinuses are clear. 3. Normal appearance of the orbits including the globes and retrobulbar soft tissue planes. Electronically Signed: Duc Gregory MD at 19:22 EST ,
--- NOTE | 2024-02-27 17:52 | EDS_ITS ---
HPI <ALVA Nielsen - Last Filed: 02/27/24 19:30> History of Present Illness Chief Complaint: Fall Narrative Narrative: Patient is an 88-year-old female who lives alone with no significant medical history presents the emergency department after mechanical fall. Patient tripped over a cord and struck her left knee and face. Patient was wearing glasses to have some abrasion to her eyebrows. Denies any LOC, she was able to get up and called her daughter who then brought her to the emergency department. Patient states she is mostly sore on her face as well as her left knee. Tetanus vaccination up-to-date. [facility] <ALVA Nielsen - Last Filed: 02/27/24 19:30> [facility] Medical History (Updated 02/27/24 @ 19:30 by ALVA Nielsen) Irritable bowel Hiatal hernia Wears glasses Wears dentures DVT (deep venous thrombosis) High cholesterol Anemia History of leukemia Easy bruising Back pain Gastric reflux Syncope Non-smoker History of pain when walking Family history of malignant neoplasm of colon in father Esophageal dysphagia Rheumatoid arthritis Home Medications ?Medication ?Instructions ?Recorded ?Last Taken ?Type bimatoprost 0.03 % drops with 1 drp EACH EYE QHS 06/05/13 Unknown History applicator, eyelash base alendronate 35 mg tablet 35 mg PO QWEEK 04/24/19 Unknown History hydroxychloroquine 200 mg tablet 200 mg PO DAILYCM arthritis 04/24/19 Unknown History biotin 10,000 mcg capsule 10,000 mcg PO DAILY hair growth 04/24/22 Unknown History bonlhweouxkq-obpnagyh-tvqdfg tablet 1 tab PO DAILY 04/24/22 Unknown History rivastigmine tartrate 1.5 mg 1.5 mg PO QHS memory 04/24/22 Unknown History capsule rosuvastatin 10 mg tablet (Crestor) 10 mg PO QODAY cholesterol 04/24/22 Unknown History cyrewj-otwpsgic-rlypkyc 1 cap PO TID #90 caps 02/12/24 Unknown Rx 40,000-126,000-168,000 unit capsule, delay rel (Zenpep) Allergy/AdvReac Type Severity Reaction Status Date / Time aspirin Allergy Severe Hives Verified 05/19/23 14:49 ibuprofen Allergy Hives Verified 05/19/23 14:49 donepezil AdvReac Nausea Verified 05/19/23 14:49 Penicillins AdvReac I PASS Verified 05/19/23 14:49 OUT Surgical History Hx of colonoscopy Hx of appendectomy Hx of toe surgery Hx of arthroscopy of shoulder Hx of dilation and curettage Hx of bilateral cataract extraction Hx of arthroscopy of right knee Hx of tonsillectomy Hx of abdominal hysterectomy Status post laparoscopic Warren fundoplication Social History household members: family Smoking Status: Never smoker alcohol intake: never ROS <ALVA Nielsen - Last Filed: 02/27/24 19:30> ROS ED ROS Narrative Constitutional: Negative for fever, chills, weight loss, weakness Eyes: Negative for vision loss, vision change, double vision. ENT: Negative for any sore throat, ear pain, congestion Cardiovascular: Negative for any chest pain, tightness, palpitations Respiratory: Negative for any cough, sputum production, hemoptysis, dyspnea, dyspnea on exertion, orthopnea Gastrointestinal: Negative for any abdominal pain, nausea, vomiting, diarrhea, constipation, blood in stool, blood in vomit : Negative for any urinary frequency, dysuria, retention, blood in urine Muscle skeletal: Negative for any neck pain, back pain. Positive for left knee pain Neurological: Negative for any headache, syncope, dizziness Skin: Negative for any rashes, itching, lacerations. Positive abrasions bilateral eyebrows Psychiatric: Negative for any depression, anxiety, stress, suicidal ideation, homicidal ideation Hematologic: Negative for any excessive bruising, easy bleeding EXAM <ALVA Nielsen - Last Filed: 02/27/24 19:30> Physical Exam Narrative Exam Narrative: Vital signs reviewed. HEET: Head normocephalic atraumatic, TMs clear bilaterally. Posterior pharynx is clear, moist mucous membranes. Nares clear bilaterally. Pupils are equal round react to light. Patient is of the skin tear is roughly 1 cm to the distal eyebrow to the right side, superficial abrasion to the left eyebrow. Neck: Supple with no lymphadenopathy or tenderness. No signs of meningismus. Cardiac: Regular rate and rhythm no murmurs gallops or rubs, equal peripheral pulses bilaterally. Respiratory: Lungs clear to auscultation bilaterally. No chest tenderness. Abdomen: Soft, nontender, nondistended. No abdominal bruit or pulsatile masses. No hepatosplenomegaly Extremities: No peripheral edema, no signs of gross trauma or deformity. Active full range of motion of all extremities. Abrasion to the left knee, full range of motion. Neuro: Cranial nerves II through XII intact, no focal neurological deficits. Skin: Clean dry and intact with no rash, purpura, petechiae, vesicles or pustules. Backs/flank: No CVA tenderness, no midline spinal tenderness, no deformity. Psych: Normal mood and affect. No SI, HI or acute psychosis. Const Vital Signs: 02/27/24 17:20 02/27/24 17:44 Temperature 98 F Temperature Source Oral Pulse Rate 77 Respiratory Rate 16 Respiratory Effort Normal Respiratory Depth Normal Respiratory Pattern Normal Blood Pressure 154/73 H Blood Pressure Mean 100 Pulse Ox 98 Oxygen Delivery Method Room Air Room Air Positive well nourished and well developed General Appearance ED: well developed <Dr. Ollie Olivarez DO - Last Filed: 02/27/24 19:38> Physical Exam Const Vital Signs: 02/27/24 17:20 02/27/24 17:44 Temperature 98 F Temperature Source Oral Pulse Rate 77 Respiratory Rate 16 Respiratory Effort Normal Respiratory Depth Normal Respiratory Pattern Normal Blood Pressure 154/73 H Blood Pressure Mean 100 Pulse Ox 98 Oxygen Delivery Method Room Air Room Air MDM <ALVA Nielsen - Last Filed: 02/27/24 19:30> MDM Radiography Diagnostic Testing: Clinical Impression(s) from Imaging Studies Brain CT 02/27/24 17:45 IMPRESSION: 1. Stable exam 2. Diffuse involutional changes and chronic microvascular deep white matter disease. 3. No intracranial mass, hemorrhage or acute territorial infarct. 4. No fractures. 5. No radiographically significant sinus disease.. Electronically Signed: Duc Gregory MD at 19:10 EST , Cervical Spine CT 02/27/24 17:45 IMPRESSION: 1. No evidence of acute cervical spinal fracture or spondylolisthesis. 2. Incidental note of LEFT apical pleural thickening. No underlying mass is noted. Electronically Signed: Duc Gregory MD at 19:16 EST , Facial/Sinus 02/27/24 17:45 IMPRESSION: 1. No maxillofacial fractures noted. 2. [There is moderate LEFT Ethmoid mucosal thickening. Remaining paranasal sinuses are clear. 3. Normal appearance of the orbits including the globes and retrobulbar soft tissue planes. Electronically Signed: Duc Gregory MD at 19:22 EST , Knee X-Ray 02/27/24 17:55 IMPRESSION: 1. No evidence fracture, malalignment or focal bony or joint space abnormality. 2. Diffuse osteopenia without focal lytic or destructive bony process. 3. Medial soft tissue swelling. No soft tissue gas or radiopaque foreign body Electronically Signed: Duc Gregory MD at 19:18 EST , Treatment and Re-Evaluation :: Differential diagnosis includes however is not limited to: Intracranial bleeding, concussion, skin tears, closed head injury, knee contusion, joint effusion MDM presenting to the emergency department for mechanical fall, striking her head. Patient does have 2 abrasions to each side of her eyebrow secondary to her glasses. Patient also has an abrasion to her left knee. X-rays of the left knee as well as a CT scan of the brain cervical spine and face will be ordered. Patient was given oral Tylenol. Tetanus vaccination up-to-date. All radiologic examinations were read, reviewed by the emergency department attending. From these reads, a plan of care will be put in place. I did reevaluate the patient's right eyebrow wound, does appear there is some full-thickness laceration. I was able to place 4 simple sutures of 5-0 Ethilon. The suture was roughly 1.5 cm, it was with the skin tear which I did not feel back. Patient tolerated well. Lidocaine with epinephrine used to anesthetize, sterile gloves, sterile drapes used. Irrigated with 100 cc of normal saline. Patient had these removed in 5 to [address] scan of the brain cervical spine maxillofacial bones are grossly unremarkable. X-ray of the left kneeShowed no evidence of fracture malalignment or bony or joint space abnormality. At this time, patient will be discharged home. Patient will have the sutures removed in 5 to 7 days. She instructed to ice, use eylj-sue-qlhmikv Tylenol. Patient is agreeable to plan. I spoke with the patient as well as the patient's daughters about returning precautions. All questions answered, stable for discharge. <Dr. Ollie Olivarez, DO - Last Filed: 02/27/24 19:38> MDM History & Record Review Discussion w/independent historian: Patient Radiography Diagnostic Testing: Clinical Impression(s) from Imaging Studies Brain CT 02/27/24 17:45 IMPRESSION: 1. Stable exam 2. Diffuse involutional changes and chronic microvascular deep white matter disease. 3. No intracranial mass, hemorrhage or acute territorial infarct. 4. No fractures. 5. No radiographically significant sinus disease.. Electronically Signed: Duc Gregory MD at 19:10 EST , Cervical Spine CT 02/27/24 17:45 IMPRESSION: 1. No evidence of acute cervical spinal fracture or spondylolisthesis. 2. Incidental note of LEFT apical pleural thickening. No underlying mass is noted. Electronically Signed: Duc Gregory MD at 19:16 EST , Facial/Sinus 02/27/24 17:45 IMPRESSION: 1. No maxillofacial fractures noted. 2. [There is moderate LEFT Ethmoid mucosal thickening. Remaining paranasal sinuses are clear. 3. Normal appearance of the orbits including the globes and retrobulbar soft tissue planes. Electronically Signed: Duc rGegory MD at 19:22 EST , Knee X-Ray 02/27/24 17:55 IMPRESSION: 1. No evidence fracture, malalignment or focal bony or joint space abnormality. 2. Diffuse osteopenia without focal lytic or destructive bony process. 3. Medial soft tissue swelling. No soft tissue gas or radiopaque foreign body Electronically Signed: Duc Gregory MD at 19:18 EST , Treatment and Re-Evaluation :: Differential diagnosis includes however is not limited to: Intracranial bleeding, concussion, skin tears, closed head injury, knee contusion, joint effusion MDM presenting to the emergency department for mechanical fall, striking her head. Patient does have 2 abrasions to each side of her eyebrow secondary to her glasses. Patient also has an abrasion to her left knee. X-rays of the left knee as well as a CT scan of the brain cervical spine and face will be ordered. Patient was given oral Tylenol. Tetanus vaccination up-to-date. All radiologic examinations were read, reviewed by the emergency department attending. From these reads, a plan of care will be put in place. I did reevaluate the patient's right eyebrow wound, does appear there is some full-thickness laceration. I was able to place 4 simple sutures of 5-0 Ethilon. The suture was roughly 1.5 cm, it was with the skin tear which I did not feel back. Patient tolerated well. Lidocaine with epinephrine used to anesthetize, sterile gloves, sterile drapes used. Irrigated with 100 cc of normal saline. Patient had these removed in 5 to [address] scan of the brain cervical spine maxillofacial bones are grossly unremarkable. X-ray of the left kneeShowed no evidence of fracture malalignment or bony or joint space abnormality. At this time, patient will be discharged home. Patient will have the sutures removed in 5 to 7 days. She instructed to ice, use [id number] Tylenol. Patient is agreeable to plan. I spoke with the patient as well as the patient's daughters about returning precautions. All questions answered, stable for discharge. I have personally performed a face to face assessment of the patient and have reviewed the ARTI Note. I performed a substantive portion of the visit including all aspects of the following. My rosenbaum findings include: History is 88-year-old female tripped and fell tonight striking her head on the ground. She notes right forehead laceration. A little skin tears. She notes some swelling and skin abrasions to the knee. No loss of consciousness. She is not anticoagulated. Exam is there is about a 1-1/2 cm laceration to the right lateral eyebrow with associated skin tear. No palpable bony depressions. No obvious ocular injury. Superficial abrasions to the left periorbital region and to the left knee. There is a mild hematoma to the inferior medial left knee. Extensor mechanism intact. Medical Decison Making may depend interpretation of the plain films of the knee is no acute fracture. CT of the brain patient cervical spine was negative. Laceration was repaired by nurse practitioner. Patient to follow-up return if worsening or concerns Discharge Plan Triage Chief Complaint: Fall Other Complaint: Wound ED Midlevel Provider: Augustin Parr ED Provider: Ollie Olivarez Dx/Rx/DC Orders Clinical Impression: Fall, Head injury, Facial laceration, Contusion of knee Instructions: Black Eye, ED Laceration, All Closures Prescriptions: No Action bimatoprost 1 DROP bottle 1 drp EACH EYE QHS Patient Comments: eye drops alendronate 35 MG tablet 35 mg PO QWEEK Rx Instructions: takes once a week on friday hydroxychloroquine 200 MG tablet 200 mg PO DAILYCM lfmhftwatvfc-tfqqmbun-yjcvqa Tablet 1 tab PO DAILY rosuvastatin [Crestor] 10 mg Tablet 10 mg PO QODAY rivastigmine tartrate 1.5 mg Capsule 1.5 mg PO QHS biotin 10,000 mcg Capsule 10,000 mcg PO DAILY Zenpep 40,000-126,000- 168,000 unit capsule,delayed release(DR/EC) 1 cap PO TID Qty: 90 3RF Rx Instructions: administer with meals and/or snacks Primary Care Provider: Bairon Engle Referrals: Bairon Engle MD [Primary Care Provider] - Activity Restrictions/Additional Instructions: Please have your sutures removed in 5 to 7 days. Ensure that you ice and elevate. It is normal for the bruising to go down the face. Return for any worsening symptoms. Use Tylenol for any pain or headaches. Print Language: Welsh Disposition Disposition: Home, Self Care
--- NOTE | 2024-02-27 17:55 | RAD_ITS ---
INDICATION: fall EXAMINATION/TECHNIQUE: X-RAY - LEFT XR Knee Complete 4 Views or More 4 VIEWS COMPARISON: 03/29/2006 FINDINGS: SOFT TISSUES: There is medial soft tissue swelling. No soft tissue gas. No radiopaque foreign body. BONES/JOINTS: No acute fracture or subluxation.. There is mild osteopenia, however normal alignment. Preservation of the joint space.. No sclerotic or destructive changes observed. RAD/Knee 4 or More Views IMPRESSION: 1. No evidence fracture, malalignment or focal bony or joint space abnormality. 2. Diffuse osteopenia without focal lytic or destructive bony process. 3. Medial soft tissue swelling. No soft tissue gas or radiopaque foreign body Electronically Signed: Duc Gregory MD at 19:18 EST ,
[2024-02-27] MEDS: Acetaminophen 500 MG Tablet 1000 MG PO (18:04)
[2024-02-27] MEDS: Lidocaine 1% /Epi 1:100 (20ml) 20 ML Vial INFILT (19:34)
== END 2024-02-27 19:47 | disposition home or self-care (01) ==
PROVIDERS: Emergency Provider Emergency Medicine; PCP Family Medicine; Visit Provider Emergency Medicine
DX: S01.111A Laceration without foreign body of right eyelid and periocular area, initial encounter (principal); S80.02XA Contusion of left knee, initial encounter; S80.212A Abrasion, left knee, initial encounter; W01.10XA Fall on same level from slipping, tripping and stumbling with subsequent striking against unspecified object, initial encounter; E78.00 Pure hypercholesterolemia, unspecified; Z79.899 Other long term (current) drug therapy
CPT/HCPCS: 12011; 70450; 70486; 72125; 73564; 99283

== ENCOUNTER 2024-10-10 16:59 | Inpatient (IN) | payer MEDICARE, SELFPAY ==
[2024-10-10] VITALS (7 sets, daily range): BP systolic 140–160; BP diastolic 66–92; PULSE 74–85; RESP 16–24; TEMP 36.4–36.7; O2SAT 95–100; BMI 18.6; BMI 16.4
--- NOTE | 2024-10-10 17:19 | ED.VIS.FALL ---
HPI HPI - Fall History of Present Illness Chief Complaint: Fall Informant: patient Occured/Mechanism Occurred: Today Mechanism/Context: Yes same level fall and Yes slip Pain/Injury Pain Location: lower extremity (Right thigh and hip) Quality of Pain: - (Heavy) Worsened by: Movement Relieved by: Rest Associated Symptoms Associated Symptoms: Positive for Inability to ambulate; Negative for Parasthesias, Weakness, Loss of function, Loss of consciousness or Amnesia Narrative Narrative: Patient presents after a fall that occurred today. Patient states she was walking when she slipped and fell. Patient landed on her right side. Patient denies any head injury or loss of consciousness. Patient states her pain is mainly over her right thigh. Patient describes it as a heavy feeling. Patient states it is worse with movement. Patient states that better with rest. Patient denies any paresthesias or weakness. Patient denies any other injuries. [facility] Medical History Irritable bowel Hiatal hernia Wears glasses Wears dentures DVT (deep venous thrombosis) High cholesterol Anemia History of leukemia Easy bruising Back pain Gastric reflux Syncope Non-smoker History of pain when walking Family history of malignant neoplasm of colon in father Esophageal dysphagia Rheumatoid arthritis Home Medications ?Medication ?Instructions ?Recorded ?Last Taken ?Type hydroxychloroquine 200 mg tablet 200 mg PO DAILYCM arthritis 04/24/19 Unknown History biotin 10,000 mcg capsule 10,000 mcg PO DAILY hair growth 04/24/22 Unknown History nrrikbcuxfpi-jdhriabj-vefmge tablet 1 tab PO DAILY 04/24/22 Unknown History rivastigmine tartrate 1.5 mg 1.5 mg PO QHS memory 04/24/22 Unknown History capsule saqnsh-odmsoubv-fiahsou 1 cap PO TID #90 caps 02/12/24 Unknown Rx 40,000-126,000-168,000 unit capsule, delay rel (Zenpep) megestrol 40 mg tablet 40 mg PO TID #90 tabs 05/24/24 Unknown Rx mirtazapine 15 mg tablet 15 mg PO QHS #30 tabs 05/24/24 Unknown Rx prednisone 10 mg tablet 10 mg PO QDAY #30 tabs 05/24/24 Unknown Rx dronabinol 5 mg capsule 5 mg PO BID #60 caps 08/04/24 Unknown Rx Allergy/AdvReac Type Severity Reaction Status Date / Time aspirin Allergy Severe Hives Verified 10/10/24 17:10 ibuprofen Allergy Hives Verified 10/10/24 17:10 donepezil AdvReac Nausea Verified 10/10/24 17:10 Penicillins AdvReac I PASS Verified 10/10/24 17:10 OUT Family History (Updated 10/10/24 @ 21:[address] Sofia Christian MD) Mother Alzheimer's dementia Diabetes Father CVA (cerebral vascular accident) Surgical History Hx of colonoscopy Hx of appendectomy Hx of toe surgery Hx of arthroscopy of shoulder Hx of dilation and curettage Hx of bilateral cataract extraction Hx of arthroscopy of right knee Hx of tonsillectomy Hx of abdominal hysterectomy Status post laparoscopic Warren fundoplication Social History (Updated 10/10/24 @ 21:[address] Sofia Christian MD) household members: family housing: assisted living facility Smoking Status: Never smoker alcohol intake: never substance use type: does not use ROS ROS ED Constitutional Constitutional ED: Denies chills or fever(s) Eyes Eyes: Denies blurry vision or change in vision ENT ENT ED: Reports rhinorrhea; Denies sore throat Cardiovascular Cardiovascular: Denies chest pain or palpitations Respiratory/Chest Respiratory/Chest: Denies cough or dyspnea Gastrointestinal Gastrointestinal: Denies nausea or vomiting Genitourinary Genitourinary ED: Denies dysuria or hematuria Musculoskeletal Musculoskeletal: Denies back pain or neck pain Integumentary Denies abscess or rash Neurologic Neurologic: Denies headache(s) or weakness Allergic/Immunologic Allergic/Immunologic ED: Denies mouth swelling or urticaria EXAM Physical Exam Const Vital Signs: 10/10/24 16:59 10/10/24 17:05 10/10/24 18:59 Temperature 98.1 F Temperature Source Oral Pulse Rate 77 85 Respiratory Rate 16 24 H Respiratory Effort Normal Respiratory Depth Normal Respiratory Pattern Normal Blood Pressure 160/83 H 149/66 H Blood Pressure Mean 108 93 Pulse Ox 99 100 99 Oxygen Delivery Method Room Air Room Air Room Air 10/10/24 20:00 Temperature Temperature Source Pulse Rate 82 Respiratory Rate 20 H Respiratory Effort Respiratory Depth Respiratory Pattern Blood Pressure 140/84 H Blood Pressure Mean 102 Pulse Ox 96 Oxygen Delivery Method Room Air Positive well nourished and well developed General Appearance ED: well developed and NAD HEENT Reports normocephalic atraumatic Neck full ROM and supple Chest Wall palpation of chest normal Resp normal respiratory effort and clear to auscultation bilaterally Cardio regular rate and regular rhythm GI non-tender and non-distended Palpation: soft Extremity Extremity Narrative: There is tenderness to palpation over the right thigh and hip. There is no obvious deformity noted. Range of motion of the right hip was limited in all motions secondary to pain. There is some mild pain with internal and external rotation of the right lower extremity. Pedal pulses are equal bilaterally. Sensation was intact to light touch in all digits. Strength is 5/5 bilaterally in the lower extremities. Neuro CN's II-XII intact bilaterally, moves all extremities, no focal motor deficits and no sensory deficits noted Nieves Coma Scale: document GCS findings Spontaneous Obeys Commands Oriented 15 Sensorium / Orientation: alert Motor Exam: strength 5/5 throughout Psych mental status grossly normal MDM MDM MDM Narrative Medical decision making narrative: Differential diagnosis includes hip fracture, pelvic fracture, contusion, and sprain. X-rays of the right hip and pelvis will be obtained to assess for hip fracture and pelvic fracture. Lab Data Attestation: I reviewed the patient's lab results. Lab results narrative: CBC with within normal limits. Labs: Laboratory Results - last 24 hr 10/10/24 10/10/24 16:47 20:25 WBC 5.2 RBC 3.91 L Hgb 12.7 Hct 37.6 MCV 96.2 MCH 32.5 H MCHC 33.8 RDW Std Deviation 44.9 H RDW Coeff of Katiana 12.8 Plt Count 230 MPV 9.5 Immature Gran % (Auto) 0.400 Neut % (Auto) 61.1 Lymph % (Auto) 24.3 [place] % (Auto) 10.2 H Eos % (Auto) 3.4 Baso % (Auto) 0.6 Absolute Neuts (auto) 3.2 Absolute Lymphs (auto) 1.27 Nucleated RBC % 0 PT 14.3 INR 1.1 APTT 25.4 Sodium 140 Potassium 4.0 Chloride 102 Carbon Dioxide 24.9 Anion Gap 13 BUN 20 H Creatinine 0.87 Estim Creat Clear Calc 33.23 L Est GFR (MDRD) Non-Af 65 BUN/Creatinine Ratio 23.1 H Glucose 179 H Calcium 9.3 Radiography Chest X-Ray - ED: 1 View, Read by ED Physician, Read by Radiologist and No Acute Disease Diagnostic Testing: Clinical Impression(s) from Imaging Studies Femur X-Ray 10/10/24 17:40 IMPRESSION: Acute right femoral fracture. Probable additional fracture of the right distal femur, however visualization is limited by patient positioning. Reading Location: [facility] Pelvis X-Ray 10/10/24 17:40 IMPRESSION: Acute fracture of the right femur through the intertrochanteric line. Reading Location: [facility] X-rays of the right femur were obtained. There are 4 views. On my independent interpretation, there is an intertrochanteric fracture of the right proximal femur. Radiologist also interpreted the x-rays and agrees. X-rays of the pelvis were obtained. There is 1 view. My independent interpretation, there is a intertrochanteric fracture of the right proximal femur. Radiologist also interpreted the x-rays and agrees. Portable chest x-ray was obtained. There is 1 view. On my independent interpretation there is no acute cardiopulmonary process. There is scoliosis noted. There is no pleural effusion noted. Radiologist also interpreted the x-rays and agrees. EKG Initial EKG: Attestation: I personally reviewed and interpreted this EKG as follows: Interpretation: Sinus Rhythm (79) and RBBB Comments: EKG was obtained. On my independent interpretation, it showed a normal sinus rhythm with a rate of 79. [place] interval was normal at 112 ms. QRS interval was slightly prolonged at 124 ms. QTc interval was normal at 477 ms. Ponce was normal. There is a right bundle branch block pattern noted. There are no acute ST or T wave changes. Prior EKG tracings: available for review Prior: Unchanged (04/25/2022) Management Discussion w/another healthcare provider: Hospitalist and [employer] (Dr. Rodrigo Mcqueen from orthopedics) Treatment and Re-Evaluation Narrative: Patient given injection of morphine. Patient and family were advised of findings. Because of the fracture, medical screening labs will be obtained. CBC will be obtained for anemia. Basic metabolic profile will be obtained to assess for electrolyte abnormality and renal function. PT with INR and PTT will be obtained to assess for coagulopathy. Urinalysis will be obtained to assess for urinary tract infection. Chest x-ray will be obtained to assess for pneumonia and bronchitis. EKG will be obtained to assess for cardiac dysrhythmia and cardiac ischemia. Case was discussed with Dr. Rodrigo Mcqueen from orthopedics. Case was discussed with the hospitalist for admission. She was in to evaluate the patient. She will admit her to her service. Discharge Plan Dx/Rx/DC Orders Clinical Impression: Closed intertrochanteric fracture of right hip, Fall, Elevated blood pressure reading, Dementia Disposition Disposition: Acute Care Hospital [facility]
--- NOTE | 2024-10-10 17:40 | RAD_ITS ---
PROCEDURE: FEMUR MIN 2 VIEWS 10/10/2024 REASON FOR EXAM: INJURY/PAIN TECHNIQUE: FEMUR MIN 2 VIEWS Laterality: Right COMPARISON: None. FINDINGS: Bones: Acute fracture deformity of the right femur through the intertrochanteric line. Mild foreshortening and compaction. Probable additional fracture of the right distal femur however visualization is limited by patient positioning. Joints: Normal alignment at the hip. Indeterminate alignment of the right knee joint due to patient positioning. Soft tissues: Soft tissue swelling. RAD/Femur Min 2 Views IMPRESSION: Acute right femoral fracture. Probable additional fracture of the right distal femur, however visualization is limited by patient positioning. Reading Location: [id number]
--- NOTE | 2024-10-10 17:40 | RAD_ITS ---
PROCEDURE: PELVIS 1 OR 2 VIEWS 10/10/2024 REASON FOR EXAM: INJURY/PAIN TECHNIQUE: PELVIS 1 OR 2 VIEWS COMPARISON: Right femur radiographs. FINDINGS: Hardware: None. Bones: Acute fracture of the right femur through the intertrochanteric line. Diffuse osseous demineralization. Joints: Normal alignment at the hips and sacroiliac joints. soft tissues: Soft tissues are unremarkable. RAD/Pelvis 1 or 2 Views IMPRESSION: Acute fracture of the right femur through the intertrochanteric line. Reading Location: [id number]
--- OUTSIDE RECORDS SUMMARY | 2024-10-10 17:47 | XMS RPT_ITS | CCD ---
Author Organization [facility] Care Team Providers Care Retail Zone Specialist Name Role Phone PHIAYANNA ANGEL Jaye (GLASS FURNACE TENDER) Unavailable Unavai Louis Ruvalcaba DO Primary Care Provider Louis Isaacs DO Primary Care Provider Bairon Torres MD Primary Care Provider Dr. Bairon Torres Primary Care Provider Dr. Katerina Powell Emergency Provider [phone] Eduardo Espinal Admit Provider [phone]([facility])[phone] Eduardo Espinal Attending Provider Dr. Eduardo Espinal Other Provider Dr. Valdemar Sterling Attending Provider Dr. Avni Garcia Other Provider Dr. Sameear Jones Attending Provider Dr. Sameera Jones Other Provider Dr. Bairon Torres Primary Care Provider Dr. Katerina Powell Emergency Provider [phone] Eduardo Espinal Admit Provider Dr. Eduardo Espinal Attending Provider Dr. Eduardo Espinal Other Provider Dr. Valdemar Sterling Attending Provider Dr. Jia Cleary Attending Provider [phone] Dr. Eduardo Espinal Referring Provider 1([facility])[phone] Dr. Avni Garcia Other Provider Dr. Sameera Jones Attending Provider Dr. Sameera Jones Other Provider Dr. Bairon Torres Primary Care Provider Dr. Bairon Torres Referring Provider Dr. Jesus Manuel Coronado Attending Provider Bairon Torres MD Primary Care Provider [phone] Bairon Torres MD Primary Care Provider Markus TRAIN MASTER.NANDA, Fauzia Unavailable Carolyn Asher PA-C Unavailable Valdemar Sterling Attending Unavailable Brian, Bairon Primary Care Unavailable Bairon Torres Referring Unavailable Brian, Bairon Primary Care Unavailable Ollie Olivarez Attending Unavailable Bairon Torres MD Primary Care Provider Markus TRAIN MASTER.GLASS FURNACE TENDER, Fauzia Unavailable Carolyn Asher PA-C Unavailable CAROLYN ASHER Attending Unavailable BRIAN, BAIRON A Primary Care Unavailable FAUZIA WAGNER Attending Unavailable BRIAN, BAIRON A Primary Care Unavailable BRIAN, BAIRON A Primary Care Unavailable HUE OTRRES Attending Unavailable BRIAN, BAIRON A Primary Care Unavailable BRIAN, BAIRON A Referring Unavailable BRIAN, BAIRON A Primary Care Unavailable BRIAN, BAIRON A Attending Unavailable BRIAN, BAIRON A Primary Care Unavailable HUE TORRES Attending Unavailable HUE TORRES Referring Unavailable BRIAN, BAIRON A Primary Care Unavailable BRIAN, BAIRON A Primary Care Unavailable CAROLYN ASHER Attending Unavailable BRIAN, BAIRON A Primary Care Unavailable BRIAN, BAIRON A Referring Unavailable BRIAN, BAIRON A Primary Care Unavailable Allergies Allergy Classification Reported Allergen(s) Allergy Type Date of Onset Reaction(s) Facility (20 sources) ibuprofen; Translations: [IBUPROFEN] Drug Allergy 5 Hives [facility] Other [place] Repository (20 sources) Penicillins; Translations: [PENICILLINS] Propensity to adverse reactions to drug (disorder) 5 Other: See Comments [facility] Repository (20 sources) salicylic acid; Translations: [SALICYLATES] Drug Allergy 5 Other: See Comments [facility] Repository (7 sources) Aspirin Drug Allergy 2 Hives [facility] (20 sources) donepezil; Translations: [DONEPEZIL] Drug Allergy 3 Other: See Comments [facility] Work Phone: (1 source) Aspirin Drug Allergy 4 [facility] Repository (1 source) donepezil Drug Allergy 4 [facility] Repository Medications Current Medications Medication Drug Class(es) Dates Sig (Normalized) Sig (Original) amylase 056873 unt / lipase 04506 unt / protease 435196 unt delayed release oral capsule (20 sources) take 38758-450967 capsules by mouth three times daily at mealtime ohozdl-lgtnrnic-m mylase (ZENPEP) 40,000-126,000- 168,000 unit delayed release capsule Take by mouth three times daily with meals. Active Comment on above: Take by mouth three times daily with meals. bimatoprost 0.3 mg/ml topical solution (20 sources) Prostaglandin Analog Start: 06-05-2013 Bimatoprost Active 1 DRP EACH EYE AT BEDTIME June 04, 2013 11:00pm Start: 01-09-2005 End: 10-21-2023 take 1 drop(s) into the eye(s) once daily LUMIGAN 0.03 % EYE DROPS one drop each eye nightly 0 01/09/2005 10/21/2023 Discontinued (Discontinued by another Health Care Provider) Comment on above: one drop each eye ni ghtly biotin 10 mg oral capsule (20 sources) Start: 04-24-2022 take 69490 ug by mouth once daily Biotin Active 04958 MCG PO DAILY April 24, 2022 12:00am Start: 06-26-2020 take 2500 ug by mouth once sheila ly Biotin Active 2500 MCG PO DAILY June 25, 2020 11:00pm take 77208 ug by mouth once suzan y BIOTIN ORAL Take 10,000 mcg by mouth once daily. Active take 80911 ug by mouth once suzan y BIOTIN ORAL Take 10,000 mcg by mouth once daily. 0 Active Comment on above: Take 10,000 mcg by m outh once daily. calcium carbonate 1250 mg oral tablet (4 sources) Start: 2013 take 1000 mg by mouth once daily Calcium Carbonate Active 1000 MG PO DAILY@0800 June 04, 2013 11:00pm carbamide peroxide 65 mg/ml otic solution (2 sources) Start: 2021 End: 2021 carbamide peroxide (DEBROX) 6.5 % otic solution Indications: Bilateral impacted cerumen Use 5 Drops in both ears twice daily. 15 mL 0 05/21/2021 06/20/2021 Active Comment on above: Use 5 Drops in both ears twice daily. cholecalciferol 0.025 mg oral tablet (4 sources) Vitamin D Start: 2019 take 1000 [IU] by mouth once daily Cholecalciferol (Vitamin D3) Active 1000 UNIT PO DAILY April 24, 2019 12:00am hydroxychloroquine sulfate 200 mg oral tablet (20 sources) Antimalarial, Antirheumatic Agent Start: 2023 take 1 tablet by mouth once hydrOXYchloroQUINE (PLAQUENIL) 200 mg tablet Indications: Rheumatoid arthritis, involving unspecified site, unspecified whether rheumatoid factor present (HCC) Take 1 tablet by mouth once daily. Per rheumatology 03/13/2023 Active Start: 04-24-2019 take 200 mg by mouth once daily at mealtime Hydroxychloroquine Active 200 MG PO DAILY WITH MEALS April 24, 2019 12:00am Start: 04-24-2019 take 300 mg by mouth once daily at mealtime Hydroxychloroquine Active 300 MG PO DAILY WITH MEALS April 24, 2019 12:00am Start: 06-10-2018 take 1.5 tablets by mouth once hydroxychloroquine (PLAQUENIL) 200 mg tablet Take 1.5 tablets by mouth once daily. Per rheumatology 0 06/10/2018 Active Comment on above: Take 1.5 tablets by mouth once daily. Per rheumatology Take 1 tablet by [facility] once daily. Per rheumatology Hpulab-Wtkgkckd-H mylase (Zenpep) 40,000-126,000- 168,000 unit capsule,delayed release(DR/EC) (3 sources) Start: 04-25-2022 take 59242-724063 capsules by mouth three times daily at mealtime Dtulow-Dvfybefd-Kil lase (Zenpep) 40,000-126,000- 168,000 unit capsule,delayed release(DR/EC) Active 1 CAP PO THREE TIMES A DAY April 25, 2022 1:00am administer with meals and/or snacks Start: 04-25-2022 take 61274-894396 ca psules by mouth three times daily at mealtime Gfxyvn-Irieafkl-Pftvhvj (Zenpep) 40,000-126,000- 168,000 unit capsule,delayed release(DR/EC) Active 1 CAP PO THREE TIMES A DAY April 25, 2022 12:00am administer with meals and/or snacks Multivitamin preparation (4 sources) Start: 09-30-2013 take 1 tablet by mouth once daily Multivitamin Active 1 TABLET PO DAILY September 30, 2013 6:24am Start: 09-30-2013 take 1 tablet by addison th once daily Multivitamin Active 1 TABLET PO DAILY September 29, 2013 11:00pm Start: 09-30-2013 take 1 tablet by addison th once daily Multivitamin Active 1 TABLET PO DAILY September 30, 2013 12:00am Awapnoetucgg-Olnsitaz-Atohnm (3 sources) Start: 04-24-2022 take 1 tablet by mouth once daily Stngwtqkqzho-Vxjzvxmy-Ibtqjz Active 1 TABLET PO DAILY April 24, 2022 1:00am Start: 04-24-2022 take 1 tablet by addison th once daily Zzlslqwpljsp-Tgrvnjfw-Gtxifo Active 1 TA BLET PO DAILY April 24, 2022 12:00am nitrofurantoin, macrocrystals 25 mg / nitrofurantoin, monohydrate 75 mg oral capsule (1 source) Nitrofuran Antibacterial Start: 06-07-2024 End: 06-14-2024 take 1 capsule by mouth twice daily nitrofurantoin monohydrate and macrocrystal (MACROBID) 100 mg capsule Take 1 capsule by mouth two times a day for 7 days. 14 capsule 06/07/2024 06/14/2024 Active rivastigmine 1.5 mg oral capsule (20 sources) Start: 03-09-2024 End: 05-19-2024 rivastigmine tartrate (EXELON) 1.5 mg capsule Take 1 capsule in the morning and 2 capsules at night. 90 capsule 5 05/19/2024 Active Start: 05-15-2023 End: 03-05-2024 rivastigmine tartrate (EXELO N) 1.5 mg capsule Take 1 capsule in the morning and 2 capsules at night. 45 capsule 3 01/16/2024 03/05/2024 Discontinued Start: 08-28-2022 End: 11-26-2022 take 1 capsule by mouth twice daily rivastigmine tartrate (EXELON) 3 mg capsule Take 1 capsule by mouth twice daily. 180 capsule 0 08/28/2022 08/29/2022 Discontinued Start: 04-24-2022 End: 05-07-2023 rivastigmine tartrate (EXELO N) 1.5 mg capsule Take 1 capsule by mouth as directed. Take 1 capsule in the morning and 2 capsules at night. 90 capsule 2 02/06/2023 05/05/2023 Discontinued Start: 03-28-2022 End: 05-08-2022 take 1 capsule by mouth once daily rivastigmine tartrate (EXELON) 1.5 mg capsule Take 1 capsule by mouth once daily. 5 capsule 0 03/28/2022 04/07/2022 Discontinued Comment on above: Take 1 capsule by mo uth once daily. Take 1 capsule by mo uth twice daily. Take 1 capsule by mo uth as directed. Take 1 capsule in the morning and 2 capsules at night. THERAPEUTIC MULTIVITAMIN TAB (20 sources) Start: 01-08-2005 THERAPEUTIC MULTIVITAMIN TAB Take one(1) tablet daily. 0 01/08/2005 Active Comment on above: Take one(1) tablet d aily. Completed/Discontinued Medications Medication Drug Class(es) Dates Sig (Normalized) Sig (Original) alendronic acid 35 mg oral tablet (20 sources) Bisphosphonate Start: 08-26-2022 End: 10-21-2023 take 1 tablet by mouth every week in the morning alendronate (FOSAMAX) 35 mg tablet Indications: Osteoporosis, unspecified osteoporosis type, unspecified pathological fracture presence Take on empty stomach in the morning with 8 oz of water. After taking do not have food, drink, medications, or supplements for at least one half-hour. Take 1 tablet PO once each week. 12 tablet 1 07/14/2023 10/21/2023 Discontinued (Clinical Decision) Start: 04-24-2019 End: 08-24-2022 take 1 tablet by mouth every week in the morning alendronate (FOSAMAX) 35 mg tablet Indications: Osteoporosis, unspecified osteoporosis type, unspecified pathological fracture presence Take on empty stomach in the morning with 8 oz of water. After taking do not have food, drink, medications, or supplements for at least one half-hour. Take 1 tablet PO once each week. 12 tablet 1 08/26/2022 Active Comment on above: Take on empty stomac h in the morning with 8 oz of water. After taking do not have food, drink, medications, or supplements for at least one half-hour. Take 1 tablet PO once each week. calcium carbonate 625 mg / ergocalciferol 125 unt oral tablet (20 sources) Provitamin D2 Compound Start: 06-21-19 16 End: 10-21-19 24 take 1 tablet by mouth once daily calcium carbonate-vitamin D (OS-DEBBI 250 W/D) 250 (625)-125 mg-unit tab Take 1 tablet by mouth once daily. 06/21/2015 10/21/2023 Discontinued (Discontinued by another Health Care Provider) Comment on above: Take 1 tablet by addison th once daily. Calcium Carbonate / vitamin D3 (20 sources) End: 10-21-19 take 1 tablet by mouth twice daily calcium carbonate/vitamin D3 (CALCIUM 600 + D ORAL) Take 1 tablet by mouth twice daily. 10/21/2023 Discontinued (Discontinued by another Health Care Provider) take 1 tablet by mouth twice sheila ly calcium carbonate/vitamin D3 (CALCIUM 600 + D ORAL) Take 1 tablet by mouth twice daily. 0 Active Comment on above: Take 1 tablet by addison th twice daily. cholecalciferol, vitamin D3, (VITAMIN D3 ORAL) (20 sources) take 1000 [IU] by mouth once daily cholecalciferol, vitamin D3, (VITAMIN D3 ORAL) Take 1,000 Units by mouth once daily. 0 Active Comment on above: Take 1,000 Units by mouth once daily. donepezil hydrochloride 5 mg oral tablet (6 sources) Start: 03-11-2022 End: 03-11-2022 take 5 mg by mouth once daily Donepezil Discontinued 5 MG PO DAILY March 11, 2022 12:00am March 11, 2022 4:06am Start: 03-06-2022 take 1 tablet by addison th once daily at bedtime donepezil (ARICEPT) 10 mg tablet Take 1 tablet by mouth daily at bedtime. Start after completing the 5 mg tabs 30 tablet 5 03/06/2022 Active Start: 03-06-2022 take 1 tablet by addison th once daily at bedtime donepezil (ARICEPT) 5 mg tablet Take 1 tablet by mouth daily at bedtime. 30 tablet 0 03/06/2022 Active Comment on above: Take 1 tablet by addison th daily at bedtime. Take 1 tablet by addison th daily at bedtime. Start after completing the 5 mg tabs rosuvastatin calcium 5 mg oral tablet (20 sources) HMG-CoA Reductase Inhibitor Start: End: take 1 tablet by mouth once daily rosuvastatin (CRESTOR) 5 mg tablet Take 1 tablet by mouth once daily. 90 tablet 1 03/30/2024 04/23/2024 Discontinued Start: 10-21-2023 End: 10-21-2023 take 1 tablet by mouth once daily, then take 1 tablet by mouth once daily rosuvastatin (CRESTOR) 10 mg tablet Take 1 tablet by mouth once daily. Take one tablet daily 10/21/2023 10/21/2023 Discontinued Start: 01-06-2023 End: 10-21-2023 take 1 tablet by mouth every other day rosuvastatin (CRESTOR) 10 mg tablet Take 1 tablet by mouth every other day. 45 tablet 1 06/17/2023 10/21/2023 Discontinued (Adjust Sig - Block E-Cancel) Start: 03-06-2022 End: 09-04-2022 take 1 tablet by mouth every other day rosuvastatin (CRESTOR) 10 mg tablet Take 1 tablet by mouth every other day. 45 tablet 1 01/06/2023 Active Start: 07-26-2021 End: 03-06-2022 take 1 tablet by mouth once daily at bedtime rosuvastatin (CRESTOR) 10 mg tablet Take 1 tablet by mouth daily at bedtime. 90 tablet 1 07/26/2021 03/06/2022 Discontinued Comment on above: Take 1 tablet by addison th daily at bedtime. Take 1 tablet by addison th every other day. Problems Active Problems Problem Classification Problem Date Documented Da te Episodic/Chronic Abdominal pain (5 sources) Abdominal pain; Translations: [Unspecified abdominal pain] 03-17-2022 Episodic Allergic reactions (20 sources) Solar degeneration; Translations: [Other skin changes due to chronic exposure to nonionizing radiation] Onset: 0 09-14-2009 Episodic Chronic kidney disease (20 sources) Chronic kidney disease stage 3A ; Translations: [Stage 3a chronic kidney disease] Onset: 1 07-18-2020 Chronic Chronic kidney disease (1 source) Chronic kidney disease; Translations: [Stage 3a chronic kidney disease (HCC)] Onset: 2 Complications of surgical procedures or medical care (4 sources) Drug therapy finding; Translations: [Unspecified adverse effect of drug or medicament, initial encounter] 03-19-2022 Episodic Conditions associated with dizziness or vertigo (4 sources) Vertigo; Translations: [Dizziness and giddiness] 03-19-2022 Episodic Delirium, dementia, and amnestic and other cognitive disorders (20 sources) Primary degenerative dementia of the Alzheimer type, senile onset, uncomplicated; Translations: [Alzheimer's disease with late onset] Onset: 3 Chronic Disorders of lipid metabolism (20 sources) Hyperlipidemia; Translations: [Hyperlipidemia, unspecified] Onset: 9 12-14-2014 Chronic Diverticulosis and diverticulitis (20 sources) Diverticulosis of colon; Translations: [Diverticulosis of large intestine without perforation or abscess without bleeding] 03-20-2005 Chronic Fluid and electrolyte disorders (5 sources) Mild dehydration; Translations: [Dehydration] 03-17-2022 Episodic Gastrointestinal hemorrhage (5 sources) Acute gastrointestinal hemorrhage; Translations: [Gastrointestinal hemorrhage, unspecified] 04-24-2022 Episodic Genitourinary symptoms and ill-defined conditions (1 source) Microscopic hematuria; Translations: [Other microscopic hematuria] Episodic Glaucoma (20 sources) Unspecified glaucoma; Translations: [Unspecified glaucoma] 01-08-2005 Chronic Hemorrhoids (20 sources) Internal hemorrhoids; Translations: [Other hemorrhoids] 03-20-2005 Episodic Nonspecific chest pain (8 sources) Chest pain, unspecified; Translations: [Chest pain] Onset: 7 04-25-2019 Episodic Occlusion or stenosis of precerebral arteries (20 sources) Bilateral stenosis of carotid arteries; Translations: [Occlusion and stenosis of bilateral carotid arteries] Onset: 2 Chronic Osteoporosis (20 sources) Osteoporosis; Translations: [Age-related osteoporosis without current pathological fracture] Onset: 9 12-02-2018 Chronic Other aftercare (1 source) Removal of sutures done; Translations: [Encounter for removal of sutures] 03-04-2024 Episodic Other and unspecified benign neoplasm (5 sources) Benign neoplasm of colon; Translations: [Benign neoplasm of colon, unspecified] 03-20-2005 Episodic Other ear and sense organ disorders (1 source) Impacted cerumen of bilateral ears; Translations: [Impacted cerumen, bilateral] Episodic Other gastrointestinal disorders (20 sources) Diarrhea; Translations: [Diarrhea, unspecified] Onset: 1 01-22-2021 Episodic Other gastrointestinal disorders (7 sources) Esophageal dysphagia; Translations: [Other dysphagia] 06-26-2020 Episodic Other inflammatory condition of skin (20 sources) Rosacea; Translations: [Rosacea, unspecified] Onset: 0 09-14-2009 Chronic Other injuries and conditions due to external causes (1 source) Encounter for examination and observation following other accident; Translations: [Encounter for examination and observation following other accident] Onset: 5 Episodic Other nervous system disorders (20 sources) Hydrocephalus; Translations: [Hydrocephalus in diseases classified elsewhere] Onset: 3 04-01-2022 Chronic Other nervous system disorders (7 sources) Paresthesia; Translations: [Paresthesia of skin] 06-07-2013 Episodic Other non-traumatic joint disorders (20 sources) Polyarthropathy; Translations: [Polyarthritis, unspecified] Onset: 4 10-21-2023 Chronic Other nutritional; endocrine; and metabolic disorders (20 sources) Metabolic syndrome X; Translations: [Metabolic syndrome] Onset: 6 07-09-2005 Chronic Other nutritional; endocrine; and metabolic disorders (20 sources) Intolerance to lactose; Translations: [Lactose intolerance, unspecified] Onset: 6 02-23-2016 Chronic Other nutritional; endocrine; and metabolic disorders (1 source) Hypercalcemia; Translations: [Hypercalcemia] 05-23-2023 Chronic Residual codes; unclassified (7 sources) Family history of cancer of colon; Translations: [Family history of malignant neoplasm of digestive organs] 06-26-2020 Episodic Residual codes; unclassified (20 sources) Memory impairment; Translations: [Other amnesia] Onset: 3 Episodic Rheumatoid arthritis and related disease (2 sources) Rheumatoid arthritis without rheumatoid factor, unspecified site; Translations: [Seronegative rheumatoid arthritis (HCC)] Onset: 4 Chronic Sprains and strains (7 sources) Sprain of ankle; Translations: [Sprain of unspecified ligament of left ankle, initial encounter] 09-17-2020 Episodic Unclassified (7 sources) Age more than 65 years; Translations: [Over 65 years old] 03-09-2022 Viral infection (7 sources) Disease caused by 2019-nCoV; Translations: [COVID-19] 03-09-2021 Episodic Past or Other Problems Problem Classification Problem Date Documented Date Episodic/Chronic Abdominal hernia (20 sources) Paraesophageal hernia; Translations: [Diaphragmatic hernia without obstruction or gangrene] Onset: 10-07-2013 Resolved: 06-21-2015 02-26-2021 Episodic Administrative/socia l admission (20 sources) Advance directive discussed with patient; Translations: [Other specified counseling] Onset: 03-06-2022 Episodic Coagulation and hemorrhagic disorders (20 sources) Chronic idiopathic thrombocytopenic purpura; Translations: [Immune thrombocytopenic purpura] Onset: 06-10-2013 Resolved: 06-10-2013 06-10-2013 Chronic Diabetes mellitus without complication (20 sources) Hyperglycemia; Translations: [Hyperglycemia, unspecified] Onset: 07-23-2021 Episodic Malaise and fatigue (20 sources) Fatigue; Translations: [Other fatigue] Onset: 07-23-2021 Episodic Open wounds of head; neck; and trunk (2 sources) Facial laceration ; Translations: [Laceration without foreign body of other part of head, subsequent encounter] Onset: 03-04-2024 03-04-2024 Episodic Other aftercare (20 sources) Patient encounter status; Translations: [Other jail (current) drug therapy] Onset: 10-21-2023 10-21-2023 Episodic Other aftercare (3 sources) Other jail (current) drug therapy; Translations: [Encounter for long-term (current) use of other medications] Onset: 10-21-2023 Episodic Other aftercare (1 source) Encounter for removal of sutures; Translations: [Visit for suture removal] Onset: 03-04-2024 Episodic Other circulatory disease (5 sources) Spider nevus; Translations: [Nevus, non-neoplastic] Onset: 09-14-2009 09-14-2009 Episodic Other circulatory disease (5 sources) Telangiectasia disorder; Translations: [Nevus, non-neoplastic] Onset: 09-14-2009 09-14-2009 Episodic Other circulatory disease (4 sources) Carotid bruit; Translations: [Other specified symptoms and signs involving the circulatory and respiratory systems] Onset: 07-23-2021 Episodic Other diseases of kidney and ureters (5 sources) Acute renal insufficiency; Translations: [Disorder of kidney and ureter, unspecified] Onset: 12-02-2018 12-02-2018 Episodic Other hematologic conditions (20 sources) History of immune thrombocytopenia; Translations: [Personal history of diseases of the blood and blood-forming organs and certain disorders involving the immune mechanism] Onset: 12-08-2012 12-08-2012 Episodic Other injuries and conditions due to external causes (20 sources) At risk for falls ; Translations: [History of falling] Onset: 08-25-2023 08-25-2023 Episodic Other nervous system disorders (20 sources) Impairment of balance; Translations: [Other abnormalities of gait and mobility] Onset: 08-25-2023 08-25-2023 Episodic Other non-epithelial cancer of skin (20 sources) History of malignant neoplasm of skin; Translations: [Personal history of other malignant neoplasm of skin] Onset: 09-14-2009 09-14-2009 Episodic Other screening for suspected conditions (not mental disorders or infectious disease) (20 sources) Raised TSH level; Translations: [Other specified abnormal findings of blood chemistry] Onset: 07-23-2021 Episodic Other skin disorders (5 sources) Seborrheic keratosis; Translations: [Other seborrheic keratosis] Onset: 09-14-2009 09-14-2009 Episodic Other skin disorders (5 sources) Scar conditions and fibrosis of skin; Translations: [Scar conditions and fibrosis of skin] Onset: 09-14-2009 09-14-2009 Episodic Other skin disorders (5 sources) Solar lentigo; Translations: [Other melanin hyperpigmentation] Onset: 09-14-2009 09-14-2009 Episodic Other skin disorders (5 sources) Actinic keratosis; Translations: [Actinic keratosis] Onset: 12-01-2011 12-01-2011 Episodic Other skin disorders (5 sources) Inflamed seborrheic keratosis; Translations: [Inflamed seborrheic keratosis] Onset: 12-01-2011 12-01-2011 Episodic Other skin disorders (5 sources) Sebaceous gland hypertrophy; Translations: [Other specified follicular disorders] Onset: 12-01-2011 12-01-2011 Episodic Other skin disorders (5 sources) Changes in skin texture; Translations: [Other skin changes] Onset: 01-14-2012 01-14-2012 Episodic Other skin disorders (5 sources) Milia; Translations: [Epidermal cyst] Onset: 01-14-2012 01-14-2012 Episodic Other skin disorders (5 sources) Sebaceous hyperplasia; Translations: [Other specified follicular disorders] Onset: 01-14-2012 01-14-2012 Episodic Other skin disorders (20 sources) Whiteface - lesion ; Translations: [Corns and callosities] Onset: 10-21-2023 10-21-2023 Episodic Residual codes; unclassified (20 sources) Family history of malignant neoplasm of gastrointestinal tract; Translations: [Family history of malignant neoplasm of digestive organs] Onset: 01-09-2005 01-09-2005 Episodic Residual codes; unclassified (20 sources) Active living will ; Translations: [Other specified health status] Onset: 03-06-2022 03-06-2022 Episodic Residual codes; unclassified (1 source) Asymptomatic menopausal state; Translations: [Asymptomatic menopause] Onset: 10-21-2023 Episodic Results Test Name Value Interpretation Reference Range Facility C diff Tox gens Stl Ql JONI+p irvin 08-15-2024 C. difficile toxin genes JONI+probe Ql (Stl) Negative Normal Negative for C. difficile toxin by PCR [facility] Comment on above: Order Comment: Speci men Type: STOOL SPECIMENOrdering Facility: [facility] Address: [address] [place] [address] Performed By: #### 7 9390-1, FECWBC, 31701-1, 29386-9 ####[facility] [id number] [place] [address] [place] FAT, FECAL QUALon 08-15-2024 FAT, FECAL - NEUTRAL Normal Normal Normal [facility] Comment on above: Order Comment: Speci men Type: STOOL SPECIMENOrdering Facility: [facility] Address: [address] [place] [address] Performed By: #### F FATQL ####[facility] [id number] [place] [address] FAT, FECAL - SPLIT Normal Normal Normal [facility] Comment on above: Order Comment: Speci men Type: STOOL SPECIMENOrdering Facility: [facility] Address: [address] [place] [address] Result Comment: INTE RPRETIVE INFORMATION: Fecal Fat Qualitative Neutral fats include the monoglycerides, diglycerides, and triglycerides while split fats are the free fatty acids that are liberated from them. Impaired synthesis or secretion of pancreatic enzymes or bile may cause an increase in neutral fats while an increase in split fats suggests impaired absorption of nutrients. Performed By: [facility] [address] [place] [address] Director Quality Systems: Charly Kingston MD, PhD CLIA Number: [id number] Performed By: #### F FATQL ####[facility] [id number] [place] [address] FECAL LACTOFERRIN/LEUKOCYTES on 08-15-2024 Lactoferrin IA Ql (Stl) Negative for lactoferrin, which may indicate the absence of fecal white blood cells Normal Negative [facility] Comment on above: Order Comment: Speci men Type: STOOL SPECIMENOrdering Facility: [facility] Address: [address] [place] [address] Performed By: #### 7 9390-1, FECWBC, 78372-4, 61802-8 ####[facility] [id number] [address] OF [place] G lamblia+Cryptosp Ag Stl Ql IAon 08-15-2024 G. lamblia+Cryptosporid ium sp Ag IA Ql (Stl) CRYPTOSPORIDIUM ANTIGEN BY EIA: Negative for Cryptosporidium by EIA. GIARDIA ANTIGEN BY EIA: Negative for Giardia lamblia by EIA. Normal [facility] Comment on above: Performed By: #### 7 9390-1, FECWBC, 82939-0, 93872-9 ####[facility] [id number] [address] [address] [place] Gastrointestinal pathogens i dentified JONI+probe Nom (Stl)on 08-15-2024 Campylobacter sp DNA JONI+probe Nom (Unsp spec) Not detected Normal Not Detected [facility] Comment on above: Order Comment: Speci men Type: STOOL SPECIMENOrdering Facility: [facility] Address: [address] [place] [address] Performed By: #### 7 9390-1, FECWBC, 98436-3, 20386-8 ####[facility] [id number] [place] [address] [place] Salmonella sp DNA JONI+probe Ql (Unsp spec) Not detected Normal Not Detected [facility] Comment on above: Order Comment: Speci men Type: STOOL SPECIMENOrdering Facility: [facility] Address: [address] [place] [address] Performed By: #### 7 9390-1, FECWBC, 76110-8, 14145-7 ####[facility] LABIA [id number] [place] [address] [place] Shiga toxin stx gene JONI+probe Nom (Unsp spec) Not detected Normal Not Detected [facility] Comment on above: Order Comment: Speci men Type: STOOL SPECIMENOrdering Facility: [facility] Address: [address] [place] [address] Performed By: #### 7 9390-1, FECWBC, 39030-2, 82195-7 ####[facility] [id number] [place] [id number] [place] Shigella sp DNA JONI+probe Ql (Unsp spec) Not detected Normal Not Detected [facility] Comment on above: Order Comment: Speci men Type: STOOL SPECIMENOrdering Facility: [facility] Address: [address] [place] [address] Performed By: #### 7 9390-1, [facility], 04889-7, 73846-3 ####[facility] [id number] [place] STATES OF [facility] CNPNon 06-07-2024 CNPN Telephone (FAMWS) GUICHO MARTINEZ ([id number]) 1935 F Date Time Provider Department 06/07/24 BAIRON TORRES [facility] During your visit today, we recorded the following information about you: Karma Hanson, HERB 06/07/2024 6:14 PM Signed Pt is having frequent urination and is confused. She started symptoms yesterday so the nurse had called the compo conveyor operator provider who was Dr. Miles. A urinalysis was ordered. Joleen [facility] from [facility] calling with results which show blood and leukocytes. She will fax results to this nurse and will forward to Dr. Kearney provider compo conveyor operator. Results received. Dr. Torres working in office and results shown to him. Called and spoke with daughter Marimar Owen. Will send med to [facility]. Will call [facility] back and confirm culture was ordered as well. Karma Hanson, HERB 06/07/2024 6:18 PM Signed Called and spoke with Joleen. Urine culture was not ordered. Given verbal order as directed by Dr. Torres. Instructions to get sample before antibiotic is started. Notified Joleen that Marimar will be making sure someone picks up the antibiotic from [facility] and get it in to them tonight. Bairon Torres MD 06/07/2024 7:04 PM Signed The following approved medication requests have been transmitted electronically. Requested Prescriptions Signed Prescriptions Disp Refills nitrofurantoin monohydrate and macrocrystal (MACROBID) 100 mg capsule 14 capsule 0 Sig: Take 1 capsule by mouth two times a day for 7 days. Authorizing Provider: BAIRON TORRES MD Allergies As of Date: 06/07/2024 Noted Allergy Reaction ASA (SALICYLATES) 01/08/2005 14 - Other: See Comments Comments: Hx of low plateletes IBUPROFEN 01/08/2005 4 - Hives PENICILLINS 01/08/2005 14 - Other: See Comments Comments: passed out ARICEPT (DONEPEZIL) 03/11/2022 14 - Other: See Comments Comments: Nausea, vomiting and dizziness. Date Reviewed: 05/19/2024 Reviewed by: Hue Torres PA-C - Fully Assessed Reason for Visit: Results [95] Order(s):nitrofurantoin monohydrate and macrocrystal (MACROBID) 100 mg capsuleTake 1 capsule by mouth two times a day for 7 days.Disp: 14 capsuleRfl: 0 Prescriptions as of 06/07/2024 - nitrofurantoin monohydrate and macrocrystal (MACROBID) 100 mg capsule Take 1 capsule by mouth two times a day for 7 days. - rivastigmine tartrate (EXELON) 1.5 mg capsule Take 1 capsule in the morning and 2 capsules at night. - hydrOXYchloroQUINE (PLAQUENIL) 200 mg tablet Take 1 tablet by mouth once daily. Per rheumatology - ivxlym-uvlremli-reillkm (ZENPEP) 40,000-126,000- 168,000 unit delayed release capsule Take by mouth three times daily with meals. - BIOTIN ORAL Take 10,000 mcg by mouth once daily. - THERAPEUTIC MULTIVITAMIN TAB Take one(1) tablet daily. Meds Comments as of 10/18/2019: BIOTIN for hair supplement Problem List As Of Date 06/07/2024 Noted Resolved Unspecified glaucoma [H40.9] Mixed hyperlipidemia [E78.2] Family history of malignant neoplasm of gastroi*01/09/2005 Diverticulosis of colon (without mention of hem* Internal hemorrhoids without mention of complic* Dysmetabolic syndrome X [E88.810] 07/09/2005 H/O BCC: Desmoplastic Trichoepithelioma type: n*09/14/2009 Rosacea [L71.9] 09/14/2009 ITP (idiopathic thrombocytopenic purpura) [D69.* 06/10/2013 History of ITP [Z86.2] 12/08/2012 Paraesophageal hiatal hernia [K44.9] 10/07/2013 06/21/2015 Lactose intolerance [E73.9] 02/23/2016 Osteoporosis [M81.0] 12/02/2018 Stage 3a chronic kidney disease (HCC) [N18.31] 07/18/2020 Elevated TSH [R79.89] 07/23/2021 Elevated blood sugar [R73.9] 07/23/2021 Fatigue [R53.83] 07/23/2021 Bilateral carotid artery stenosis [I65.23] 01/08/2022 Living will on file at physician's office [Z78.*03/06/2022 Advance directive discussed with patient [Z71.8*03/06/2022 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 Encounter Status:Closed by BAIRON TORRES on 06/07/24 [facility] 05-19-2024 CNOV Office Visit (NEMOWS ) GUICHO MARTINEZ ([id number]) 1935 F Date Time Provider Department 05/19/24 4:30 PM HUE TORRES During your visit today, we recorded the following information about you: Pulse Blood pressure Weight 61/minute 150/68 41.4 kg Hue Torres PA-C 05/19/2024 5:34 PM Signed [facility] Name: Guicho Martinez Age: [age] year old Gender: female Primary Care Provider: Bairon Torres MD 05/19/2024 - General Neurology, Hue Torres PA-C ASSESSMENT ASSESSMENT/PLAN: 1. Dementia without behavioral disturbance, psychotic disturbance, mood disturbance, or anxiety, unspecified dementia severity, unspecified dementia type (HCC) - ICD9: 294.20, ICD10: F03.90 Patient with some mild decline since last appointment in terms of cognition. Having more issues with language retrieval and navigating familiar devices like her phone, television. Slightly frustrated with this but no personality changes, aggression. Sleeping well, recently moved into a prison called the [facility] and has been adjusting well to this but is only been there for a few weeks. Notes that she has become more active physically and socially, does have some weight loss since last appointment. Notes some adjustment with the food at the facility as well. Did have 1 fall that was mechanical while she was living at her house but none since she has been living at the [facility]. No new concerns today, Charlotte did decline from previous at 10/19 today. No abnormalities on physical exam, no signs of stroke. Patient did have some issues with language that she did not have before. Will continue with Exelon 1.5 mg in the morning and 3 mg in the evening. Encouraged conservative therapy as well. No other new symptoms that would warrant additional workup at this time. Patient to follow-up in 6 months or sooner should any symptoms change or worsen. Hue Torres PA-C Alzheimer's Society: Join to learn about many resources and supports for you, as the caregiver Community Resources: E.g. [employer] - [employer] Dementia Friend[employer] on the [place] side [facility]. SHIPPING ROOM HELPER/OT/PT: Speech therapy, Occupational therapy, Physical Therapy Driving: Do you have safety concerns? Power of Humidifier Maintenance Worker/ planning of the patient's will Project Lifesaver: Local police will keep records of your loved one if they tend to get lost, and will bring them home. Lifeline: emergency response button/necklace/bracelet Caregiver Health: Important to ensure you are taking care of your mental and physical health so you can care for your loved one SW consult: Do you want a social work referral to understand what resources are available to you? This is a 88 year old female followed for dementia Current medication treatment: exelon 1.5mg in the morning and 3mg Indication for repeat cognitive testing: No No diagnosis found. No follow-ups on file. Chart, labs,and relevant images reviewed. Chief Complaint:Patient presents with: Established Patient: Dementia- no new concerns Chart Review: 11/11/23 Last Filed Values Date of Most Recent Assessment and Plan 11/11/23 Specialty General Neurology Assessment ASSESSMENT/PLAN: 1. Dementia without behavioral disturbance, psychotic disturbance, mood disturbance, or anxiety, unspecified dementia severity, unspecified dementia type (HCC) - ICD9: 294.20, ICD10: F03.90 Patient with her daughter for follow-up appointment. Doing very well in terms of memory and dementia. Unfortunately, was unable to do a Charlotte due to time constraints. 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 Patient's primary concern today was her neighbor who has been having some issues with cognition, seems to bother her and is very bossy. Prevents her from going outside and going on walks as she seems to watch for her. Daughter notes this is caused her to be more agitated and on edge. Otherwise, patient is doing very well, did gain a pound and a half since last appointment. Notes that she is eating all the time, eats lots of high caloric foods. Encouraged high calorie drinks as well including Ensure and patient and daughter states they will try these as well. Patient no longer driving. Still compliant with Exelon 1.5 mg. No new concerns today that would warrant additional workup. Encouraged conservative therapy as well including increasing physical activity and cognitive activity. Discussed safety precautions at home as well in depth. Patient and daughter agreeable to treatment plan of care at this time, questions were answered. Patient to follow-up in 5 to 6 months, or sooner should any symptoms change or worsen. HPI: Last seen on 11/11/23 for dementia, stable. Having some issues with her neighbors, on exelon. Weight has been stable but still low. Patient edith (more content not included)... Normal [facility] Gastroenterology Visit Repor ton 05-19-2024 Gastroenterology Visit Report [facility] [address] [place] [address] OFFICE VISIT Date of Service: 05/19/24 MR#: [id number] Acct: [id number] Name: Jaye MARTINEZ Rep #: [id number] : 1935 Provider: Valdemar Sterling DO Age/Sex: 88/F Location[place] [facility] Status: Signed Intake Vital Signs 04/25/22 14:42 02/27/24 17:20 Height 5 ft 2 in 5 ft 2 in Intake Visit Reasons: 1 Y FU Allergies aspirin Allergy (Severe, Verified 05/19/23 14:49) Hives ibuprofen Allergy (Verified 05/19/23 14:49) Hives donepezil Adverse Reaction (Verified 05/19/23 14:49) Nausea Penicillins Adverse Reaction (Verified 05/19/23 14:49) I PASS OUT Medications ???Medication ???Instructions ???Recorded ???Confirmed ???Type hydroxychloroquine 200 mg tablet 200 mg PO DAILYCM arthritis 05/19/24 History biotin 10,000 mcg capsule 10,000 mcg PO DAILY hair growth 05/19/24 History xobtczfcfqta-snqnfyzp-wuatst tablet 1 tab PO DAILY 04/24/22 5 History rivastigmine tartrate 1.5 mg 1.5 mg PO QHS memory 04/24/2205/01 History capsule exsmfz-parkkozl-wbhggbz 1 cap PO TID #90 caps 02/12/24 Rx 40,000-126,000-168,000 unit capsule, delay rel (Zenpep) Have you fallen in the past year?: No PFSH Medical History (Updated 03/06/24 @ 00:02 by Background Daemon) Irritable bowel Hiatal hernia Wears glasses Wears dentures DVT (deep venous thrombosis) High cholesterol Anemia History of leukemia Easy bruising Back pain Gastric reflux Syncope Non-smoker History of pain when walking Family history of malignant neoplasm of colon in father Esophageal dysphagia Rheumatoid arthritis Surgical History Hx of colonoscopy Hx of appendectomy Hx of toe surgery Hx of arthroscopy of shoulder Hx of dilation and curettage Hx of bilateral cataract extraction Hx of arthroscopy of right knee Hx of tonsillectomy Hx of abdominal hysterectomy Status post laparoscopic Warren fundoplication Social History household members: family Smoking Status: Never smoker alcohol intake: never HPI HPI Details: Jaye MARTINEZ, is a 88 F who presents to the office today for follow up. Prior workup: Esophagram 09.13.13 large hiatal hernia; presbyesophagus with intraesophageal and GE reflux; esophageal diverticulum; posterior deviation of distal esophagus with unusual angle and emptying into stomach, ? emptying issue. ? EGD/colonoscopy 09.30.13 large hiatal hernia. No specimens ? Colonoscopy advanced to ICV; very tortuous colon. No path changes. ? Surgery 12.09.13 Warren fundoplication and anterior gastropexy ? EGD/colonoscopy 09.15.20 short-segment Cardoza???s, metaplasia neg; intact Warren fundoplication; gastritis. H.Pylori neg ? Colonoscopy hemorrhoids; diverticulosis. No path changes *[facility] hospitalization 04.24.22-04.25.22 for management of LGIB with BRBPR without abdominal pain, dizziness; hgb 12.4, 13.2, 12.1 ? Colonoscopy 04.25.22 diverticulosis; congestion, focal acute colitis with focal cryptitis. OV 3. OV 3 pt reports that she is feeling well overall and denies GI symptoms of concern at this time. Continues with Zenpep, states she is taking one in the morning and one at night with food. Pt reports she moved to assisted living one month ago and she is still adjusting to the changes. Exam Const General: cooperative and comfortable Nutritional Appearance: average body habitus and well nourished HENMT Head: normal to inspection Ears: hearing grossly normal bilaterally Nose: external nose normal Face and sinus: normal facial exam Mouth: oral mucosae normal Throat: posterior oropharynx normal Eyes General: appearance normal, both eyes and all related structures Neck Neck: normal visual inspection Chest Chest palpation inspection: normal inspection of the chest and normal palpation of entire chest wall Resp Effort Inspection: normal respiratory effort Auscultation: Bilateral: Clear to Auscultation Cardio Palpation: normal PMI Rate: regular rate Rhythm: regular rhythm GI Inspection: normal to inspection Auscultation: normal bowel sounds Percussion: normal to percussion Palpation: no hepatosplenomegaly Skin General: no rashes or lesions noted Neuro General: patient alert Extrem General: normal to inspection Psych Affect: normal affect Assessment and Plan Assessment and Plan (1) Ischemic colitis: Status: Acute (more content not included)... Normal [facility] CBC W Auto Differential pane l (Bld)on 05-08-2024 Basophils (Bld) [#/Vol] 0.04 10*3/uL Normal <0.11 [facility] Comment on above: Order Comment: Speci men Type: BLOOD SPECIMENOrdering Facility: [facility] Address: [address] [place] [address], [place] [address] Performed By: #### 5 7021-8 ####[facility] LABCLIA [id number] [place] [address] [place] Basophils/100 WBC (Bld) 0.6 % Normal [facility] Comment on above: Order Comment: Speci men Type: BLOOD SPECIMENOrdering Facility: [facility] Address: [address] [place] [address] Performed By: #### 5 7021-8 ####[facility] LABCL[facility] [id number] [place] [address] [place] Differential cell count method Nom (Bld) Auto Normal [facility] Comment on above: Order Comment: Speci men Type: BLOOD SPECIMENOrdering Facility: [facility] Address: [address] [place] [address] Performed By: #### 5 7021-8 ####[facility]CLIA [id number] [place] [address] [place] Eosinophils (Bld) [#/Vol] 0.27 10*3/uL Normal <0.46 [facility] Comment on above: Order Comment: Speci men Type: BLOOD SPECIMENOrdering Facility: [facility] Address: [address] [place] [address] Performed By: #### 5 7021-8 ####[facility]CL[facility] [id number] [place] [address] [place] Eosinophils/100 WBC (Bld) 4.1 % Normal [facility] Comment on above: Order Comment: Speci men Type: BLOOD SPECIMENOrdering Facility: [facility] Address: [address] [place] [address] Performed By: #### 5 7021-8 ####[facility] [id number] [place] [address] [place] Erythrocyte distribution width (RBC) [Ratio] 12.6 % Normal 11.5-15.0 [facility] Comment on above: Order Comment: Speci men Type: BLOOD SPECIMENOrdering Facility: [facility] Address: [address] [place] [address] Performed By: #### 5 7021-8 ####[facility]CL[facility] [id number] [address] Hematocrit (Bld) [Volume fraction] 41.3 % Normal 36.0-46.0 [facility] Comment on above: Order Comment: Speci men Type: BLOOD SPECIMENOrdering Facility: [facility] Address: [address] [place] [address] Performed By: #### 5 7021-8 ####[facility] LABIA [id number] [place] [address] [place] Hemoglobin (Bld) [Mass/Vol] 13.4 g/dL Normal 11.5-15.5 [facility] Comment on above: Order Comment: Speci men Type: BLOOD SPECIMENOrdering Facility: [facility] Address: [address] [place] [address] Performed By: #### 5 7021-8 ####[facility] LABIA [id number] [address] [place] Immature granulocytes (Bld) [#/Vol] 10*3/uL Normal <0.10 [facility] Comment on above: Order Comment: Speci men Type: BLOOD SPECIMENOrdering Facility: [facility] Address: [address] [place] [address] Performed By: #### 5 7021-8 ####[facility] [id number] [place] [id number] [place] Immature granulocytes/100 WBC (Bld) 0.2 % Normal [facility] Comment on above: Order Comment: Speci men Type: BLOOD SPECIMENOrdering Facility: [facility] Address: [address] [place] [address] Performed By: #### 5 7021-8 ####[facility] [id number] [address] [place] Lymphocytes (Bld) [#/Vol] 1.21 10*3/uL Normal 1.00-4.00 [facility] Comment on above: Order Comment: Speci men Type: BLOOD SPECIMENOrdering Facility: [facility] Address: [address] [place] [address] Performed By: #### 5 7021-8 ####[facility] [id number] [address] Lymphocytes/100 WBC (Bld) 18.2 % Normal [facility] Comment on above: Order Comment: Speci men Type: BLOOD SPECIMENOrdering Facility: [facility] Address: [address] [place] [address] Performed By: #### 5 7021-8 ####[facility]CL[facility] [id number] [address] [place] MCH (RBC) [Entitic mass] 32.0 pg Normal 26.0-34.0 [facility] Comment on above: Order Comment: Speci men Type: BLOOD SPECIMENOrdering Facility: [facility] Address: [address] [place] [address] Performed By: #### 5 7021-8 ####[facility] [id number] [address] [place] MCHC (RBC) [Mass/Vol] 32.4 g/dL Normal 30.5-36.0 [facility] Comment on above: Order Comment: Speci men Type: BLOOD SPECIMENOrdering Facility: [facility] Address: [address] [place] [address] Performed By: #### 5 7021-8 ####[facility] [id number] [address] [place] MCV (RBC) [Entitic vol] 98.6 fL Normal 80.0-100.0 [facility] Comment on above: Order Comment: Speci men Type: BLOOD SPECIMENOrdering Facility: [facility] Address: [address] [place] [address] Performed By: #### 5 7021-8 ####[facility]CL[facility] [id number] [place] [address] [place] Monocytes (Bld) [#/Vol] 0.63 10*3/uL Normal <0.87 [facility] Comment on above: Order Comment: Speci men Type: BLOOD SPECIMENOrdering Facility: [facility] Address: [address] [place] [address] Performed By: #### 5 7021-8 ####[facility]CLIA [id number] [place] [address] [place] Monocytes/100 WBC (Bld) 9.5 % Normal [facility] Comment on above: Order Comment: Speci men Type: BLOOD SPECIMENOrdering Facility: [facility] [facility] Address: [address] [place] [address] Performed By: #### 5 7021-8 ####[facility] LABCLIA [id number] [address], [place] [address] [place] Neutrophils (Bld) [#/Vol] 4.48 10*3/uL Normal 1.45-7.50 [facility] Comment on above: Order Comment: Speci men Type: BLOOD SPECIMENOrdering Facility: [facility] Address: [address] [place] [address] Performed By: #### 5 7021-8 ####[facility]CLIA [id number] [facility] [address] [place] [address] [place] Neutrophils/100 WBC (Bld) 67.4 % Normal [facility] Comment on above: Order Comment: Speci men Type: BLOOD SPECIMENOrdering Facility: [facility] Address: [address] [place] [address] Performed By: #### 5 7021-8 ####[facility] LABCLIA [id number] [address] [address] [place] Nucleated RBC (Bld) [#/Vol] 10*3/uL Normal <0.01 [facility] Comment on above: Order Comment: Speci men Type: BLOOD SPECIMENOrdering Facility: [facility] Address: [address] [place] [address] Performed By: #### 5 7021-8 ####[facility] LABCLIA [id number] [place] [address] [place] Nucleated RBC/100 WBC (Bld) [Ratio] 0.0 /100 WBC Normal [facility] Comment on above: Order Comment: Speci men Type: BLOOD SPECIMENOrdering Facility: [facility] Address: [address] [place] [address] Performed By: #### 5 7021-8 ####[facility] LABCLIA [id number] [place] [address] [place] Platelet mean volume (Bld) [Entitic vol] 9.7 fL Normal 9.0-12.7 [facility] Comment on above: Order Comment: Speci men Type: BLOOD SPECIMENOrdering Facility: [facility] Address: [address] [place] [address] Performed By: #### 5 7021-8 ####[facility] LABCLIA [id number] [place] [id number] [place] Platelets (Bld) [#/Vol] 220 10*3/uL Normal 150-400 [facility] Comment on above: Order Comment: Speci men Type: BLOOD SPECIMENOrdering Facility: [facility] Address: [address] [place] [address] Performed By: #### 5 7021-8 ####[facility] LABCLIA [id number] [place] [id number] [place] RBC (Bld) [#/Vol] 4.19 10*6/uL Normal 3.90-5.20 [facility] Comment on above: Order Comment: Speci men Type: BLOOD SPECIMENOrdering Facility: [facility] Address: [address] [place] [address] Performed By: #### 5 7021-8 ####[facility] LABCLIA [id number] [address] [place] WBC (Bld) [#/Vol] 6.64 10*3/uL Normal 3.70-11.00 [facility] Comment on above: Order Comment: Speci men Type: BLOOD SPECIMENOrdering Facility: [facility] Address: [address] [place] [address] Performed By: #### 5 7021-8 ####[facility] LABCLIA [id number] [address] [place] Comprehensive metabolic 2000 panelon 05-08-2024 Albumin [Mass/Vol] 4.1 g/dL Normal 3.9-4.9 [facility] Comment on above: Order Comment: Speci men Type: BLOOD SPECIMENOrdering Facility: [facility] Address: [address] [place] [address] Performed By: #### 2 4323-8 ####[facility] LABCLIA [id number] [address] [place] ALP [Catalytic activity/Vol] 85 U/L Normal 34-123 [facility] Comment on above: Order Comment: Speci men Type: BLOOD SPECIMENOrdering Facility: [facility] Address: [address] [place] [address] Performed By: #### 2 4323-8 ####[facility] LABCLIA [id number] [place] [id number] [place] ALT [Catalytic activity/Vol] 11 U/L Normal 7-38 [facility] Comment on above: Order Comment: Speci men Type: BLOOD SPECIMENOrdering Facility: [facility] Address: [address] [place], [place] [id number] Performed By: #### 2 4323-8 ####[facility]CLIA [id number] [facility] [address] [place] [address] [place] Anion gap [Moles/Vol] 9 mmol/L Normal 8-15 [facility] Comment on above: Order Comment: Speci men Type: BLOOD SPECIMENOrdering Facility: [facility] Address: [address] [place] [address] Performed By: #### 2 4323-8 ####[facility] LABCLIA [id number] [place] [address] [place] AST [Catalytic activity/Vol] 21 U/L Normal 13-35 [facility] Comment on above: Order Comment: Speci men Type: BLOOD SPECIMENOrdering Facility: [facility] Address: [address] [place] [address] Performed By: #### 2 4323-8 ####[facility] LABCLIA [id number] [place] [address] [place] Bilirubin [Mass/Vol] 0.4 mg/dL Normal 0.2-1.3 [facility] Comment on above: Order Comment: Speci men Type: BLOOD SPECIMENOrdering Facility: [facility] Address: [address] [place] [address] Performed By: #### 2 4323-8 ####[facility] LABCLIA [id number] [place] [id number] [place] Calcium [Mass/Vol] 9.5 mg/dL Normal 8.5-10.2 [facility] Comment on above: Order Comment: Speci men Type: BLOOD SPECIMENOrdering Facility: [facility] Address: [address] [place] [address] Performed By: #### 2 4323-8 ####[facility] LABCLIA [id number] [facility] [place] [id number] [place] Chloride [Moles/Vol] 105 mmol/L Normal 98-107 [facility] Comment on above: Order Comment: Speci men Type: BLOOD SPECIMENOrdering Facility: [facility] Address: [address] [place] [address] Performed By: #### 2 4323-8 ####[facility] LABCLIA [id number] [place] [address] [place] CO2 [Moles/Vol] 27 mmol/L Normal 22-30 [facility] Comment on above: Order Comment: Speci men Type: BLOOD SPECIMENOrdering Facility: [facility] Address: [address] [place] [address] Performed By: #### 2 4323-8 ####[facility] LABCLIA [id number] [address] [place] Creatinine [Mass/Vol] 0.95 mg/dL Normal 0.58-0.96 [facility] Comment on above: Order Comment: Speci men Type: BLOOD SPECIMENOrdering Facility: [facility] Address: [address] [place] [address] Performed By: #### 2 4323-8 ####[facility] LABIA [id number] [address] STATES OF [facility] Creatinine and Glomerular filtration rate.predicted panel (S/P/Bld) 58 mL/min/1.73m??? Low >=60 [facility] Comment on above: Order Comment: Speci men Type: BLOOD SPECIMENOrdering Facility: [facility] Address: [address] [place] [address] Result Comment: Josey mated Glomerular Filtration Rate (eGFR) is calculated using the 2020 CKD-EPI creatinine equation. This equation utilizes serum creatinine, sex, and age as parameters. The creatinine assay has traceable calibration to isotope dilution-mass spectrometry. Refer to KDIGO guidelines for clinical interpretation. In patients with unstable renal function, e.g. those with acute kidney injury, the eGFR may not accurately reflect actual GFR. Performed By: #### 2 4323-8 ####[facility] LABCLIA [id number] [place] [id number] [place] Glucose [Mass/Vol] 143 mg/dL High 74-99 [facility] Comment on above: Order Comment: Sima collado Type: BLOOD SPECIMENOrdering Facility: [facility] Address: [address] [place] [address] Result Comment: The [place] Diabetes Association (ADA) provides guidance for cutoff values for fasting glucose and random glucose. The ADA defines fasting as no caloric intake for at least 8 hours. Fasting plasma glucose results between 100 to 125 [...] Standards of Medical Care in Diabetes 2016, [place] [employer]. Diabetes Care. 2016.39(Suppl 1). Performed By: #### 2 4323-8 ####[facility] LABCLIA [id number] [address] [address] [place] Potassium [Moles/Vol] 4.3 mmol/L Normal 3.7-5.1 [facility] Comment on above: Order Comment: Sima collado Type: BLOOD SPECIMENOrdering Facility: [facility] Address: [address] [place] [address] Performed By: #### 2 4323-8 ####[facility] LABCLIA [id number] [address] [address] [place] Protein [Mass/Vol] 6.9 g/dL Normal 6.3-8.0 [facility] Comment on above: Order Comment: Sima collado Type: BLOOD SPECIMENOrdering Facility: [facility] Address: [address] [place] [address] Performed By: #### 2 4323-8 ####[facility] LABCLIA [id number] [facility] [address] [address] [place] Sodium [Moles/Vol] 141 mmol/L Normal 136-144 [facility] Comment on above: Order Comment: Speci men Type: BLOOD SPECIMENOrdering Facility: [facility] Address: [address] [place] [address] Performed By: #### 2 4323-8 ####[facility] LABCLIA [id number] [address] [place] Urea nitrogen [Mass/Vol] 19 mg/dL Normal 7-21 [facility] Comment on above: Order Comment: Speci men Type: BLOOD SPECIMENOrdering Facility: [facility] Address: [address] [place] [address] Performed By: #### 2 4323-8 ####[facility] LABCLIA [id number] [address] OF [facility] CNOVon 04-23-2024 CNOV Office Visit (FAMPWS ) JUANGUICHO ([id number]) 1935 F Date Time Provider Department 04/23/24 1:20 PM [facility] During your visit today, we recorded the following information about you: Temperature Pulse Respiration Blood pressure 97.5 degrees 62/minute 16/minute 120/70 Weight 42.2 kg Carolyn Asher PA-C 04/23/2024 2:06 PM Signed Chief Complaint Patient presents with: 6 Month Exam HPI Guicho Cade Martinez is a 88 year old female who presents here today for Chronic Medical Conditions.. Patient with hx of alzheimer's, hyperlipidemia, osteoporosis, polyarticular arthritis, and those as below. Patient overall doing okay. Past medical history, appointments, medications, allergies reviewed. Previous Medical History PAST MEDICAL HISTORY Diagnosis Date Advance directive discussed with patient 03/06/2022 Discussed 03/2022: up to date Balance problems 08/25/2023 Benign neoplasm of colon Bilateral carotid artery stenosis 01/08/2022 US: 07/2021 Allen 40-60% Chronic ITP (idiopathic thrombocytopenia) (HCC) 06/10/2013 Dementia of the Alzheimer's type, with late onset, uncomplicated (HCC) 05/08/2022 Diverticulosis of colon (without mention of hemorrhage) Dysmetabolic syndrome X 07/09/2005 Elevated blood sugar 07/23/2021 Elevated TSH 07/23/2021 Encounter for Medicare annual wellness exam 09/04/2022 Medicare Part B: Not able to find Last done: 09/04/2022 Family history of malignant neoplasm of gastrointestinal tract 01/09/2005 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/08/2012 Hydrocephalus in diseases classified elsewhere ([facility]) 04/01/2022 Internal hemorrhoids without mention of complication ITP (idiopathic thrombocytopenic purpura) History of episode in 1999 Lactose intolerance 02/23/2016 Living will on file at physician's office 03/06/2022 DPA: Marimar and Luma (daughter's) Mixed hyperlipidemia Osteoporosis 12/02/2018 Polyarticular arthritis 10/21/2023 Seeing Rheum Risk for falls 08/25/2023 Rosacea 09/14/2009 Stage 3a chronic kidney disease (HCC) 07/18/2020 Unspecified glaucoma(365.9) Previous Surgical History PAST SURGICAL HISTORY Procedure Laterality Date COLONOSCOPY FLX DX W/COLLJ SPEC WHEN PFRMD 03/20/05 Colonoscopy COLONOSCOPY FLX DX W/COLLJ SPEC WHEN PFRMD 08/29/10 COLONOSCOPY W/BIOPSY SINGLE/MULTIPLE 09-30-13 EGD TRANSORAL BIOPSY SINGLE/MULTIPLE 09-30-13 GASTROESOPHAG REFLX TEST W/TELEMTRY PH ELTRD 09-30-13 PH PROBE LAPS RPR PARAESPHGL HRNA INCL FUNDPLSTY W/O MESH 12-09-13 PAST SURGICAL HISTORY OF 1957 growth of ovary/growth off bowell/appendectomy PAST SURGICAL HISTORY OF 1967 tumor removed behind naval PAST SURGICAL HISTORY OF 05/2007 knee surgery PAST SURGICAL HISTORY OF 2011 bilateral cataract PAST SURGICAL HISTORY OF bilat great toe repair PAST SURGICAL HISTORY OF left shoulder repair, arthoscopy TONSILLECTOMY PRIMARY/SECONDARY Tonsillectomy TOTAL ABDOMINAL HYSTERECT W/WO RMVL TUBE OVARY 1985 Hysterectomy, MOOSE Family History FAMILY HISTORY Problem Relation Age of Onset Diabetes Mother feeding tube Stroke Father colon cancer Heart Brother aneurysm behind heart Aneurysm Brother stomach Patient Allergies ALLERGIES Allergen Reactions Asa [Salicylates] Other: See Comments Hx of low plateletes Ibuprofen Hives Penicillins Other: See Comments passed out Aricept [Donepezil] Other: See Comments Nausea, vomiting and dizziness. Current Medications Current Outpatient Medications on File Prior to Visit Medication Sig rosuvastatin (CRESTOR) 5 mg tablet Take 1 tablet by mouth once daily. rivastigmine tartrate (EXELON) 1.5 mg capsule Take 1 capsule in the morning and 2 capsules at night. hydrOXYchloroQUINE (PLAQUENIL) 200 mg tablet Take 1 tablet by mouth once daily. Per rheumatology bmwrth-flqryszc-wdyxiew (ZENPEP) 40,000-126,000- 168,000 unit delayed release capsule Take by mouth three times daily with meals. BIOTIN ORAL Take 10,000 mcg by mouth once daily. THERAPEUTIC MULTIVITAMIN TAB Take one(1) tablet daily. No current facility-administered medications on file prior to visit. Social History Social History Tobacco Use Smoking status: Never Smokeless tobacco: Never Substance Use Topics Alcohol use: No Review of Symptoms REVIEW OF SYSTEMS GENERAL: No weight loss, malaise or fevers NECK: Negative for lumps, goiter, pain and significant neck swelling RESPIRATORY: Negative for cough, hemoptysis, wheezing, COPD, dyspnea or shortness of breath CARDIOVASCULAR: Negative for chest pain, leg swelling, hypertension, CHF or palpitations NEURO: No history of headaches, syncope, paralysis, seizures or tremors EXAM: BP 120/70 (BP Site: Left Arm, BP Position: Sitting, BP Cuff Size: Regular Adult) Pulse 62 Temp 36.4 ?C (97.5 ?F) Resp 16 Wt 42.2 k (more content not included)... Normal [facility] Comprehensive metabolic 2000 panelon 04-17-2024 Albumin [Mass/Vol] 4.3 g/dL Normal 3.9-4.9 [facility] Comment on above: Order Comment: Speci men Type: BLOOD SPECIMENOrdering Facility: [facility] Address: [address] [place] [address] Performed By: #### 3 016-3, LIPNF, 33383-0 ####[facility] LABCLIA [id number] [place] [address] [place] ALP [Catalytic activity/Vol] 90 U/L Normal 34-123 [facility] Comment on above: Order Comment: Speci men Type: BLOOD SPECIMENOrdering Facility: [facility] Address: [address] [place] [address] Performed By: #### 3 016-3, LIPNF, 35235-0 ####[facility] LABCLIA [id number] [place] [address] [place] ALT [Catalytic activity/Vol] 16 U/L Normal 7-38 [facility] Comment on above: Order Comment: Speci men Type: BLOOD SPECIMENOrdering Facility: [facility] Address: [address] [place] [address] Performed By: #### 3 016-3, LIPNF, 86486-9 ####[facility] LABCLIA [id number] [place] [address] [place] Anion gap [Moles/Vol] 9 mmol/L Normal 8-15 [facility] Comment on above: Order Comment: Speci men Type: BLOOD SPECIMENOrdering Facility: [facility] Address: [address] [place] [address] Performed By: #### 3 016-3, LIPNF, 45845-3 ####[facility] LABCLIA [id number] [place] [address] [place] AST [Catalytic activity/Vol] 23 U/L Normal 13-35 [facility] Comment on above: Order Comment: Speci men Type: BLOOD SPECIMENOrdering Facility: [facility] Address: [address] [place] [address] Performed By: #### 3 016-3, LIPNF, 44419-5 ####[facility] LABCLIA [id number] [place] [address] [place] Bilirubin [Mass/Vol] 0.7 mg/dL Normal 0.2-1.3 [facility] Comment on above: Order Comment: Speci men Type: BLOOD SPECIMENOrdering Facility: [facility] Address: [address] [place] [address] Performed By: #### 3 016-3, LIPNF, ####[facility] LABCLIA [id number] [place] [address] [place] Calcium [Mass/Vol] 9.4 mg/dL Normal 8.5-10.2 [facility] Comment on above: Order Comment: Speci men Type: BLOOD SPECIMENOrdering Facility: [facility] Address: [address] [place] [address] Performed By: #### 3 016-3, LIPNF, ####[facility] LABCLIA [id number] [place] [address] [place] Chloride [Moles/Vol] 105 mmol/L Normal 98-107 [facility] Comment on above: Order Comment: Speci men Type: BLOOD SPECIMENOrdering Facility: [facility] Address: [address] [place] [address] Performed By: #### 3 016-3, LIPNF, ####[facility] LABCLIA [id number] [place] [address] [place] CO2 [Moles/Vol] 27 mmol/L Normal 22-30 [facility] Comment on above: Order Comment: Speci men Type: BLOOD SPECIMENOrdering Facility: [facility] Address: [address] [place] [address] Performed By: #### 3 016-3, LIPNF, 51636-2 ####[facility] LABCLIA [id number] [place] [address] [place] Creatinine [Mass/Vol] 0.95 mg/dL Normal 0.58-0.96 [facility] Comment on above: Order Comment: Speci men Type: BLOOD SPECIMENOrdering Facility: [facility] Address: [address] [place] [address] Performed By: #### 3 016-3, LIPNAGA, 85706-5 ####[facility] LABIA [id number] [place] [address] [place] Creatinine and Glomerular filtration rate.predicted panel (S/P/Bld) 58 mL/min/1.73m??? Low >=60 [facility] Comment on above: Order Comment: Sima men Type: BLOOD SPECIMENOrdering Facility: [facility] Address: [address] [place] [address] Result Comment: Josey mated Glomerular Filtration Rate (eGFR) is calculated using the 2020 CKD-EPI creatinine equation. This equation utilizes serum creatinine, sex, and age as parameters. The creatinine assay has traceable calibration to isotope dilution-mass spectrometry. Refer to KDIGO guidelines for clinical interpretation. In patients with unstable renal function, e.g. those with acute kidney injury, the eGFR may not accurately reflect actual GFR. Performed By: #### 3 016-3, JULIO, 00147-4 ####[facility] LABIA [id number] [place] [address] [place] Glucose [Mass/Vol] 91 mg/dL Normal 74-99 [facility] Comment on above: Order Comment: Sima collado Type: BLOOD SPECIMENOrdering Facility: [facility] Address: [address] [place] [address] Result Comment: The [place] Diabetes Association (ADA) provides guidance for cutoff values for fasting glucose and random glucose. The ADA defines fasting as no caloric intake for at least 8 hours. Fasting plasma glucose results between 100 to 125 [...] Standards of Medical Care in Diabetes 2016, [place] [employer] Association. Diabetes Care. 2016.39(Suppl 1). Performed By: #### 3 016-3, LIPNF, 80286-3 ####[facility] LABCLIA [id number] [place] [address] [place] Potassium [Moles/Vol] 4.2 mmol/L Normal 3.7-5.1 [facility] Comment on above: Order Comment: Speci men Type: BLOOD SPECIMENOrdering Facility: [facility] Address: [address] [place] [address] Performed By: #### 3 016-3, LIPNF, 34009-4 ####[facility] LABCLIA [id number] [place] [address] [place] Protein [Mass/Vol] 6.9 g/dL Normal 6.3-8.0 [facility] Comment on above: Order Comment: Speci men Type: BLOOD SPECIMENOrdering Facility: [facility] Address: [address] [place] [address] Performed By: #### 3 016-3, LIPNF, 28081-2 ####[facility] LABCLIA [id number] [place] [address] [place] Sodium [Moles/Vol] 141 mmol/L Normal 136-144 [facility] Comment on above: Order Comment: Speci men Type: BLOOD SPECIMENOrdering Facility: [facility] Address: [address] [place] [address] Performed By: #### 3 016-3, LIPNF, 53670-5 ####[facility] LABCLIA [id number] [place] [id number] [place] Urea nitrogen [Mass/Vol] 17 mg/dL Normal 7-21 [facility] Comment on above: Order Comment: Speci men Type: BLOOD SPECIMENOrdering Facility: [facility] Address: [address] [place] [address] Performed By: #### 3 016-3, LIPNF, 54900-5 ####[facility] LABCLIA [id number] [address] [place] HbA1c (Bld)on 04-17-2024 Average glucose Estimated from glycated hemoglobin (Bld) [Mass/Vol] 100 mg/dL Normal [facility] Comment on above: Order Comment: Sima collado Type: BLOOD SPECIMENOrdering Facility: [facility] Address: [address] [place] [address] Result Comment: eAG: (Estimated average glucose) is a calculated value from HgbA1c and is employee representative of the average blood glucose level in the last 2-3 month period. Performed By: #### 5 5454-3 ####[facility] [id number] [address] STATES OF [facility] HbA1c (Bld) [Mass fraction] 5.1 % Normal 4.3-5.6 [facility] Comment on above: Order Comment: Sima collado Type: BLOOD SPECIMENOrdering Facility: [facility] Address: [address] [place] [address] Result Comment: [place] Diabetes Association guidelines indicate that patients with HgbA1c in the range 5.7-6.4% are at increased risk for development of diabetes, and intervention by lifestyle modification may be beneficial. HgbA1c greater or equal to 6.5% is considered diagnostic of diabetes. Performed By: #### 5 5454-3 ####[facility] LABIA [id number] [place] [address] [place] [facility] [place] LIPID PANEL, NONFASTINGon Cholesterol [Mass/Vol] 146 mg/dL Normal <200 [facility] Comment on above: Order Comment: Sima collado Type: BLOOD SPECIMENOrdering Facility: [facility] Address: [address] [place] [address] Result Comment: <200 mg/dL, Desirable 200-239 mg/dL, Borderline high >239 mg/dL, High Performed By: #### 3 016-3, LIPNF, 98476-5 ####[facility] LABIA [id number] [address] HDL CHOLESTEROL, NF 63 mg/dL Normal >39 [facility] Comment on above: Order Comment: Faisalkenyon collado Type: BLOOD SPECIMENOrdering Facility: [facility] Address: [address] [place] [address] Result Comment: 40-5 9 mg/dL, Acceptable >59 mg/dL, High: Negative risk factor for coronary heart disease <40 mg/dL, Low: Positive risk factor for coronary heart disease Performed By: #### 3 016-3, LIPNF, 93231-6 ####[facility] LABCLIA [id number] [address] LDL CHOLESTEROL, NF 63 mg/dL Normal <100 [facility] Comment on above: Order Comment: Sima tobias Type: BLOOD SPECIMENOrdering Facility: [facility] Address: [address] [place] [address] Result Comment: <100 mg/dL, Optimal 100-129 mg/dL, Near optimal/above optimal 130-159 mg/dL, Borderline high 160-189 mg/dL, High >189 mg/dL, Very high Secondary prevention optimal LDL Cholesterol levels are recommended to be < 70 mg/dL Performed By: #### 3 016-3, LIPNF, 33882-8 ####[facility] LABCLIA [id number] [address] OF [facility] LDL/HDL RATIO, NF 1.00 mg/dL Normal <2.54 [facility] Comment on above: Order Comment: Sima collado Type: BLOOD SPECIMENOrdering Facility: [facility] Address: [address] [place] [address] Result Comment: Refe pavelce: 1. National Cholesterol Education Program ATP III Guideline At-A-Glance Quick Desk Reference: National Heart, Lung, and Blood [place]. National Institutes of Health. 2001: NIH Publication No. 01-3305. 2. An International Atherosclerosis Society position paper: global recommendations for the management of dyslipidemia: executive summary, Atherosclerosis. 2014: 232(2):410-413. Performed By: #### 3 016-3, LIPNF, 96774-2 ####[facility] LABCLIA [id number] [place] [address] [place] NON HDL CHOL, NF 83 mg/dL Normal <130 [facility] Comment on above: Order Comment: Speci men Type: BLOOD SPECIMENOrdering Facility: [facility] Address: [address] [place] [address] Result Comment: <130 mg/dL, Optimal 130-159 mg/dL, Near optimal/above optimal 160-189 mg/dL, Borderline high 190-219 mg/dL, High >219 mg/dL, Very high Secondary prevention optimal non HDL Cholesterol levels are recommended to be <100 mg/dL Performed By: #### 3 016-3, LIPNF, ####[facility] LABCLIA [id number] [place] [address] [place] T CHOL/HDL RATIO NF 2.32 mg/dL Normal <5.10 [facility] Comment on above: Order Comment: Speci men Type: BLOOD SPECIMENOrdering Facility: [facility] Address: [address] [place] [address] Performed By: #### 3 016-3, LIPNF, ####[facility] LABCLIA [id number] [place] [address] [place] TRIGLYCERIDES, NF 99 mg/dL Normal <150 [facility] Comment on above: Order Comment: Speci men Type: BLOOD SPECIMENOrdering Facility: [facility] Address: [address] [place] [address] Result Comment: <150 mg/dL, Normal 150-199 mg/dL, Borderline high 200-499 mg/dL, High >499 mg/dL, Very high Performed By: #### 3 016-3, LIPNF, 71175-3 ####[facility] LABCLIA [id number] [place] [address] [place] VLDL CHOLESTEROL, NF 20 mg/dL Normal <30 [facility] Comment on above: Order Comment: Speci men Type: BLOOD SPECIMENOrdering Facility: [facility] Address: [address] [place] [address] Performed By: #### 3 016-3, LIPNAGA, 30799-7 ####[facility] LABCLIA [id number] [place] [address] [place] TSH SerPl-aCncon 04-17-2024 TSH Qn 1.990 m[IU]/L Normal 0.270-4.200 [facility] Comment on above: Order Comment: Speci men Type: BLOOD SPECIMENOrdering Facility: [facility] Address: [address] [place] [address] Performed By: #### 3 016-3, LIPNAGA, 45494-6 ####[facility] LABCLIA [id number] [address] [place] CNOVon 03-30-2024 CNOV Office Visit (FAMPWS ) GUICHO MARTINEZ ([id number]) 1935 F Date Time Provider Department 03/30/24 9:40 AM CAROLYN ASHER FAMPWS During your visit today, we recorded the following information about you: Temperature Pulse Respiration Blood pressure 97.4 degrees 67/minute 16/minute 137/68 Weight 42.8 kg Carolyn Asher PA-C 03/30/2024 1:04 PM Signed Chief Complaint Patient presents with: Ingrid HPI Guicho Mohamud Juan is a 88 year old female who presents here today for discussion on assisted living. Patient with hx as below. Has been apprehensive about going into assisted living but daughters feel that they can no longer provide all the necessary care to their mother. Past medical history, appointments, medications, allergies reviewed. Previous Medical History PAST MEDICAL HISTORY Diagnosis Date Advance directive discussed with patient 03/06/2022 Discussed 03/2022: up to date Balance problems 08/25/2023 Benign neoplasm of colon Bilateral carotid artery stenosis 01/08/2022 US: 07/2021 Allen 40-60% Chronic ITP (idiopathic thrombocytopenia) (HCC) 06/10/2013 Dementia of the Alzheimer's type, with late onset, uncomplicated (HCC) 05/08/2022 Diverticulosis of colon (without mention of hemorrhage) Dysmetabolic syndrome X 07/09/2005 Elevated blood sugar 07/23/2021 Elevated TSH 07/23/2021 Encounter for Medicare annual wellness exam 09/04/2022 Medicare Part B: Not able to find Last done: 09/04/2022 Family history of malignant neoplasm of gastrointestinal tract 01/09/2005 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/08/2012 Hydrocephalus in diseases classified elsewhere ([facility]) 04/01/2022 Internal hemorrhoids without mention of complication ITP (idiopathic thrombocytopenic purpura) History of episode in 1999 Lactose intolerance 02/23/2016 Living will on file at physician's office 03/06/2022 DPA: Marimar and Luma (daughter's) Mixed hyperlipidemia Osteoporosis 12/02/2018 Polyarticular arthritis 10/21/2023 Seeing Rheum Risk for falls 08/25/2023 Rosacea 09/14/2009 Stage 3a chronic kidney disease (HCC) 07/18/2020 Unspecified glaucoma(365.9) Previous Surgical History PAST SURGICAL HISTORY Procedure Laterality Date COLONOSCOPY FLX DX W/COLLJ SPEC WHEN PFRMD 03/20/05 Colonoscopy COLONOSCOPY FLX DX W/COLLJ SPEC WHEN PFRMD 08/29/10 COLONOSCOPY W/BIOPSY SINGLE/MULTIPLE 09-30-13 EGD TRANSORAL BIOPSY SINGLE/MULTIPLE 09-30-13 GASTROESOPHAG REFLX TEST W/TELEMTRY PH ELTRD 09-30-13 PH PROBE LAPS RPR PARAESPHGL HRNA INCL FUNDPLSTY W/O MESH 12-09-13 PAST SURGICAL HISTORY OF 1957 growth of ovary/growth off bowell/appendectomy PAST SURGICAL HISTORY OF 1967 tumor removed behind naval PAST SURGICAL HISTORY OF 05/2007 knee surgery PAST SURGICAL HISTORY OF 2011 bilateral cataract PAST SURGICAL HISTORY OF bilat great toe repair PAST SURGICAL HISTORY OF left shoulder repair, arthoscopy TONSILLECTOMY PRIMARY/SECONDARY Tonsillectomy TOTAL ABDOMINAL HYSTERECT W/WO RMVL TUBE OVARY 1985 Hysterectomy, MOOSE Family History FAMILY HISTORY Problem Relation Age of Onset Diabetes Mother feeding tube Stroke Father colon cancer Heart Brother aneurysm behind heart Aneurysm Brother stomach Patient Allergies ALLERGIES Allergen Reactions Asa [Salicylates] Other: See Comments Hx of low plateletes Ibuprofen Hives Penicillins Other: See Comments passed out Aricept [Donepezil] Other: See Comments Nausea, vomiting and dizziness. Current Medications Current Outpatient Medications on File Prior to Visit Medication Sig rivastigmine tartrate (EXELON) 1.5 mg capsule Take 1 capsule in the morning and 2 capsules at night. hydrOXYchloroQUINE (PLAQUENIL) 200 mg tablet Take 1 tablet by mouth once daily. Per rheumatology tmcrgh-ndmmghpd-scjffuf (ZENPEP) 40,000-126,000- 168,000 unit delayed release capsule Take by mouth three times daily with meals. BIOTIN ORAL Take 10,000 mcg by mouth once daily. THERAPEUTIC MULTIVITAMIN TAB Take one(1) tablet daily. No current facility-administered medications on file prior to visit. Social History Social History Tobacco Use Smoking status: Never Smokeless tobacco: Never Substance Use Topics Alcohol use: No Review of Symptoms REVIEW OF SYSTEMS GENERAL: No weight loss, malaise or fevers EXAM: BP 137/68 (BP Site: Right Arm, BP Position: Sitting, BP Cuff Size: Regular Adult) Pulse 67 Temp 36.3 ?C (97.4 ?F) Resp 16 Wt 42.8 kg (94 lb 4 oz) SpO2 99% BMI 16.96 kg/m? General Appearance: Well appearing, alert, in no acute distress, well-hydrated, well nourished.. Health Maintenance List Influenza Vaccine(1) due on 11/02/2023 Covid-19 Vaccine( season) due on 11/02/2023 Advance Directive Discussion due on 03/03/2024 Bone Density Screening due on 10/01/2024 Ivon (more content not included)... Normal [facility] Federico 03-29-2024 NANDAN Telephone (FAMPWS) JUANGUICHO C ([id number]) 1935 F Date Time Provider Department 03/29/24 HUE TORRES During your visit today, we recorded the following information about you: Kanwal Alvarez LPN 03/29/2024 8:33 AM Signed Pt's daughter calls to report Mandie states [employer] needs a prior authorization. Daughter reports pt will be out of medication on Friday. Mandie was supposed to fax request to office but daughter wanted to make sure office is aware so this can be processed. SONNY Lockwood Samaria, LPN 03/29/2024 10:07 AM Signed Started PA on epic, pending now. Will watch for questions. Hugo Randle LPN March 29, 2024 10:06 AM Zoey Figueroa LPN 03/29/2024 3:58 PM Signed Questions answered via Epic SONNY Estrada Jessica, LPN 03/29/2024 4:29 PM Signed Medication approved. TC to daughter to let her know. Zoey Figueroa LPN Allergies As of Date: 03/29/2024 Noted Allergy Reaction ASA (SALICYLATES) 01/08/2005 14 - Other: See Comments Comments: Hx of low plateletes IBUPROFEN 01/08/2005 4 - Hives PENICILLINS 01/08/2005 14 - Other: See Comments Comments: passed out ARICEPT (DONEPEZIL) 03/11/2022 14 - Other: See Comments Comments: Nausea, vomiting and dizziness. Date Reviewed: 03/04/2024 Reviewed by: Maria Rain MA - Fully Assessed Reason for Visit: Insurance Authorization [[id number]] Prescriptions as of 03/29/2024 - rivastigmine tartrate (EXELON) 1.5 mg capsule Take 1 capsule in the morning and 2 capsules at night. - rosuvastatin (CRESTOR) 5 mg tablet Take 1 tablet by mouth once daily. - hydrOXYchloroQUINE (PLAQUENIL) 200 mg tablet Take 1 tablet by mouth once daily. Per rheumatology - txapev-umlkgucv-xyjznrk (ZENPEP) 40,000-126,000- 168,000 unit delayed release capsule Take by mouth three times daily with meals. - BIOTIN ORAL Take 10,000 mcg by mouth once daily. - THERAPEUTIC MULTIVITAMIN TAB Take one(1) tablet daily. Meds Comments as of 10/18/2019: BIOTIN for hair supplement Problem List As Of Date 03/29/2024 Noted Resolved Unspecified glaucoma [H40.9] Mixed hyperlipidemia [E78.2] Family history of malignant neoplasm of gastroi*01/09/2005 Diverticulosis of colon (without mention of hem* Internal hemorrhoids without mention of complic* Dysmetabolic syndrome X [E88.810] 07/09/2005 H/O BCC: Desmoplastic Trichoepithelioma type: n*09/14/2009 Rosacea [L71.9] 09/14/2009 ITP (idiopathic thrombocytopenic purpura) [D69.* 06/10/2013 History of ITP [Z86.2] 12/08/2012 Paraesophageal hiatal hernia [K44.9] 10/07/2013 06/21/2015 Lactose intolerance [E73.9] 02/23/2016 Osteoporosis [M81.0] 12/02/2018 Stage 3a chronic kidney disease (HCC) [N18.31] 07/18/2020 Elevated TSH [R79.89] 07/23/2021 Elevated blood sugar [R73.9] 07/23/2021 Fatigue [R53.83] 07/23/2021 Bilateral carotid artery stenosis [I65.23] 01/08/2022 Living will on file at physician's office [Z78.*03/06/2022 Advance directive discussed with patient [Z71.8*03/06/2022 Hydrocephalus in diseases classified elsewhere *04/01/2022 Dementia of the Alzheimer's type, with late ons*05/08/2022 Encounter for Medicare annual wellness exam [Z0*09/04/2022 Balance problems [R26.89] 08/25/2023 Risk for falls [Z91.81] 08/25/2023 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] 10/21/2023 Medication management [Z79.899] 10/21/2023 Corns [L84] 10/21/2023 Encounter Status:Closed by HUGO RANDLE on 03/29/24 [facility] CNOVon 03-04-2024 CNOV Office Visit (FAMPWS ) GUICHO MARTINEZ ([id number]) 1935 F Date Time Provider Department 03/04/24 5:40 PM FAUZIA WAGNER During your visit today, we recorded the following information about you: Pulse Blood pressure Weight 79/minute 146/77 42.6 kg Fauzia Wagner APRN.GLASS FURNACE TENDER 03/04/2024 5:50 PM Signed Chief Complaint No chief complaint on file. HPI Guichosharif Martinez is a 88 year old female who presents here today for Above Complaints.. Patient presents for ER follow up for mechanical fall with facial laceration. Patient received 4 simple sutures to right eyebrow. Patient had xray of knee and brain and cervical ct which were negative. Past medical history, appointments, medications, allergies reviewed. Previous Medical History PAST MEDICAL HISTORY Diagnosis Date Advance directive discussed with patient 03/06/2022 Discussed 03/2022: up to date Balance problems 08/25/2023 Benign neoplasm of colon Bilateral carotid artery stenosis 01/08/2022 US: 07/2021 Allen 40-60% Chronic ITP (idiopathic thrombocytopenia) (HCC) 06/10/2013 Dementia of the Alzheimer's type, with late onset, uncomplicated ([facility]) 05/08/2022 Diverticulosis of colon (without mention of hemorrhage) Dysmetabolic syndrome X 07/09/2005 Elevated blood sugar 07/23/2021 Elevated TSH 07/23/2021 Encounter for Medicare annual wellness exam 09/04/2022 Medicare Part B: Not able to find Last done: 09/04/2022 Family history of malignant neoplasm of gastrointestinal tract 01/09/2005 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/08/2012 Hydrocephalus in diseases classified elsewhere (HCC) 04/01/2022 Internal hemorrhoids without mention of complication ITP (idiopathic thrombocytopenic purpura) History of episode in 1999 Lactose intolerance 02/23/2016 Living will on file at physician's office 03/06/2022 DPA: Mitchell (daughter's) Mixed hyperlipidemia Osteoporosis 12/02/2018 Polyarticular arthritis 10/21/2023 Seeing Rheum Risk for falls 08/25/2023 Rosacea 09/14/2009 Stage 3a chronic kidney disease (HCC) 07/18/2020 Unspecified glaucoma(365.9) Previous Surgical History PAST SURGICAL HISTORY Procedure Laterality Date COLONOSCOPY FLX DX W/COLLJ SPEC WHEN PFRMD 03/20/05 Colonoscopy COLONOSCOPY FLX DX W/COLLJ SPEC WHEN PFRMD 08/29/10 COLONOSCOPY W/BIOPSY SINGLE/MULTIPLE 09-30-13 EGD TRANSORAL BIOPSY SINGLE/MULTIPLE 09-30-13 GASTROESOPHAG REFLX TEST W/TELEMTRY PH ELTRD 09-30-13 PH PROBE LAPS RPR PARAESPHGL HRNA INCL FUNDPLSTY W/O MESH 12-09-13 PAST SURGICAL HISTORY OF 1957 growth of ovary/growth off bowell/appendectomy PAST SURGICAL HISTORY OF 1967 tumor removed behind naval PAST SURGICAL HISTORY OF 05/2007 knee surgery PAST SURGICAL HISTORY OF 2011 bilateral cataract PAST SURGICAL HISTORY OF bilat great toe repair PAST SURGICAL HISTORY OF left shoulder repair, arthoscopy TONSILLECTOMY PRIMARY/SECONDARY Tonsillectomy TOTAL ABDOMINAL HYSTERECT W/WO RMVL TUBE OVARY 1985 Hysterectomy, MOOSE Family History FAMILY HISTORY Problem Relation Age of Onset Diabetes Mother feeding tube Stroke Father colon cancer Heart Brother aneurysm behind heart Aneurysm Brother stomach Patient Allergies ALLERGIES Allergen Reactions Asa [Salicylates] Other: See Comments Hx of low plateletes Ibuprofen Hives Penicillins Other: See Comments passed out Aricept [Donepezil] Other: See Comments Nausea, vomiting and dizziness. Current Medications Current Outpatient Medications on File Prior to Visit Medication Sig rivastigmine tartrate (EXELON) 1.5 mg capsule Take 1 capsule in the morning and 2 capsules at night. rosuvastatin (CRESTOR) 5 mg tablet Take 1 tablet by mouth once daily. hydrOXYchloroQUINE (PLAQUENIL) 200 mg tablet Take 1 tablet by mouth once daily. Per rheumatology ysyabz-shwrvwhp-bclpfsj (ZENPEP) 40,000-126,000- 168,000 unit delayed release capsule Take by mouth three times daily with meals. BIOTIN ORAL Take 10,000 mcg by mouth once daily. THERAPEUTIC MULTIVITAMIN TAB Take one(1) tablet daily. No current facility-administered medications on file prior to visit. Social History Social History Tobacco Use Smoking status: Never Smokeless tobacco: Never Substance Use Topics Alcohol use: No Review of Symptoms REVIEW OF SYSTEMS SEE HPI EXAM: There were no vitals taken for this visit. General Appearance: Well appearing, alert, in no acute distress, well-hydrated, well nourished.. Skin: Positives: 2.5cm laceration right upper eyebrow, well approximated without redness, warmth or drainage. 4 sutures noted. Head: Facial tenderness, Negative findings: Hair normal in quality, distribution, and texture No scalp lesions present Skull size and contour normal, Positive findings: ecchymosis to bilateral eyes and cheekbones. Health Maint (more content not included)... Normal [facility] Brain/Head without Contrasto n 02-27-2024 Brain/Head without Contrast [facility] Imaging Services [address] [place] [address] [id number] Brain/Head without Contrast MR#: [id number] Acct: [id number] Name: Jaye MARTINEZ Rep #: [id number] : 1935 F 88 From: Duc Jj PCP: Dr. Bairon Torres MD Status: [facility] Study: Brain/Head without Contrast Date of Exam: 02/01 09/23 Exam# [id number] Ordering Dr: Augustin Parr EXECUTIVE ADVISOR-C :[id number] INDICATION: fall EXAMINATION: CT BRAIN - CT Head or Brain W/O Contrast Injection TECHNIQUE: Multiple axial images were obtained of the head without intravenous contrast. A radiation dose optimization technique was used for this scan. IV Contrast dosage and agent: None. RADIATION DOSAGE (If Supplied By Facility): CTDIvol = ( 44.99 ) mGy, DLP = ( 798.92 ) mGycm COMPARISON: MRI examination on 04/23/2021 FINDINGS: HEMISPHERES: 1. The cerebral parenchyma, ventricular system, subarachnoid spaces have normal configuration and density. There is a normal gyral pattern. There is normal mejias/white differentiation. No midline shift.. 2. Diffuse involutional changes. Chronic microvascular deep white matter disease present. 3. No intraparenchymal mass, hemorrhage, or acute territorial infarct. CEREBELLUM - BRAINSTEM: The cerebellum, brainstem, basilar and suprasellar cisterns have normal appearance. No Chiari malformation. PITUITARY: Infundibulum and pituitary have normal configuration. Midline structures appear normal. CSF SPACES: Appropriate for age. No hydrocephalus. Basal cisterns are patent. VESSELS: 1. Moderate carotid vascular calcifications bilaterally. 2. No hyperdense vascular signs noted.. ORBITS AND PARANASAL SINUSES: 1. Normal appearance of the bony orbits. Normal appearance of the globes and retrobulbar soft tissues.. 2. Ethmoid sinus disease greater on the LEFT than RIGHT. BONY ELEMENTS: Bony elements of the cranial vault, facial skeleton and skull base have normal appearance. SCALP AND SOFT TISSUES: Normal appearance of the soft tissues of the scalp and the visualized face OTHER: None ASPECTS Score for Acute Strokes: 10 CT/Brain/Head without Contrast IMPRESSION: 1. Stable exam 2. Diffuse involutional changes and chronic microvascular deep white matter disease. 3. No intracranial mass, hemorrhage or acute territorial infarct. 4. No fractures. 5. No radiographically significant sinus disease.. Electronically Signed: Duc Gregory MD at 19:10 EST , CC: ALVA Parr; Dr. Bairon Torres MD Explosive Operator: Signed Normal [facility] Emergency Department Summary on 02-27-2024 Emergency Department Summary [facility] Medical Records Department [address] [place] [id number] Emergency Department Summary 02/27/24 MR#: [id number] Acct: [id number] Name: Jaye MARTINEZ Rep #: [id number] : 1935 88 From: Augustin CALLE PCP: Dr. Bairon Torres MD Status:DEP ER Location: ED HPI History of Present Illness Chief Complaint: Fall Narrative Narrative: Patient is an 88-year-old female who lives alone with no significant medical history presents the emergency department after mechanical fall. Patient tripped over a cord and struck her left knee and face. Patient was wearing glasses to have some abrasion to her eyebrows. Denies any LOC, she was able to get up and called her daughter who then brought her to the emergency department. Patient states she is mostly sore on her face as well as her left knee. Tetanus vaccination up-to-date. [facility] Medical History (Updated 02/27/24 @ 19:30 by ALVA Nielsen) Irritable bowel Hiatal hernia Wears glasses Wears dentures DVT (deep venous thrombosis) High cholesterol Anemia History of leukemia Easy bruising Back pain Gastric reflux Syncope Non-smoker History of pain when walking Family history of malignant neoplasm of colon in father Esophageal dysphagia Rheumatoid arthritis Home Medications ???Medication ???Instructions ???Recorded ???Last Taken ???Type bimatoprost 0.03 % drops with 1 drp EACH EYE QHS 06/05/13 Unknown History applicator, eyelash base alendronate 35 mg tablet 35 mg PO QWEEK 04/24/19 Unknown History hydroxychloroquine 200 mg tablet 200 mg PO DAILYCM arthritis 04/24/19 Unknown History biotin 10,000 mcg capsule 10,000 mcg PO DAILY hair growth 04/24/22 Unknown History gryixlnrcxry-hasdaask-zprvin tablet 1 tab PO DAILY 04/24/22 Unknown History rivastigmine tartrate 1.5 mg 1.5 mg PO QHS memory 04/24/22 Unknown History capsule rosuvastatin 10 mg tablet (Crestor) 10 mg PO QODAY cholesterol 04/24/22 Unknown History feufzc-ifprebhv-zsaetfs 1 cap PO TID #90 caps 02/12/24 Unknown Rx 40,000-126,000-168,000 unit capsule, delay rel (Zenpep) Allergy/AdvReac Type Severity Reaction Status Date / Time aspirin Allergy Severe Hives Verified 05/19/23 14:49 ibuprofen Allergy Hives Verified 05/19/23 14:49 donepezil AdvReac Nausea Verified 05/19/23 14:49 Penicillins AdvReac I PASS Verified 05/19/23 14:49 OUT Surgical History Hx of colonoscopy Hx of appendectomy Hx of toe surgery Hx of arthroscopy of shoulder Hx of dilation and curettage Hx of bilateral cataract extraction Hx of arthroscopy of right knee Hx of tonsillectomy Hx of abdominal hysterectomy Status post laparoscopic Warren fundoplication Social History household members: family Smoking Status: Never smoker alcohol intake: never ROS ROS ED ROS Narrative Constitutional: Negative for fever, chills, weight loss, weakness Eyes: Negative for vision loss, vision change, double vision. ENT: Negative for any sore throat, ear pain, congestion Cardiovascular: Negative for any chest pain, tightness, palpitations Respiratory: Negative for any cough, sputum production, hemoptysis, dyspnea, dyspnea on exertion, orthopnea Gastrointestinal: Negative for any abdominal pain, nausea, vomiting, diarrhea, constipation, blood in stool, blood in vomit : Negative for any urinary frequency, dysuria, retention, blood in urine Muscle skeletal: Negative for any neck pain, back pain. Positive for left knee pain Neurological: Negative for any headache, syncope, dizziness Skin: Negative for any rashes, itching, lacerations. Positive abrasions bilateral eyebrows Psychiatric: Negative for any depression, anxiety, stress, suicidal ideation, homicidal ideation Hematologic: Negative for any excessive bruising, easy bleeding EXAM Physical Exam Narrative Exam Narrative: Vital signs reviewed. HEET: Head normocephalic atraumatic, TMs clear bilaterally. Posterior pharynx is clear, moist mucous membranes. Nares clear bilaterally. Pupils are equal round react to light. Patient is of the skin tear is roughly 1 cm to the distal eyebrow to the right side, superficial abrasion to the left eyebrow. Neck: Supple with no lymphadenopathy or tenderness. No signs of meningismus. Cardiac: Regular rate and rhythm no murmurs gallops or rubs, equal peripheral pulses bilaterally. Respiratory: Lungs clear to auscultation bilaterally. No chest tenderness. Abdomen: Soft, nontender, nondistended. No abdominal bruit or pulsatile masses. No hepatosplenomegaly Extremities: No peripheral edema, no signs of gross trauma or deformity. Active full range of motion of all extremities. Abrasion to the left knee, full range of motion (more content not included)... Normal [facility] Knee 4 or More Viewson 02-26 Knee 4 or More Views [facility] Imaging Services [address] [place], [place] [address] Knee 4 or More Views MR#: [id number] Acct: [id number] Name: Jyae MARTINEZ Rep #: [id number] : 1935 F 88 From: Duc Jj PCP: Dr. Bairon Torres MD Status: REG ER Study: Knee 4 or More Views Date of Exam: 02/27/24 Exam# [id number] Ordering Dr: Augustin Parr EXECUTIVE ADVISOR-C :[id number] INDICATION: fall EXAMINATION/TECHNIQUE: X-RAY - LEFT XR Knee Complete 4 Views or More 4 VIEWS COMPARISON: 03/29/2006 FINDINGS: SOFT TISSUES: There is medial soft tissue swelling. No soft tissue gas. No radiopaque foreign body. BONES/JOINTS: No acute fracture or subluxation.. There is mild osteopenia, however normal alignment. Preservation of the joint space.. No sclerotic or destructive changes observed. RAD/Knee 4 or More Views IMPRESSION: 1. No evidence fracture, malalignment or focal bony or joint space abnormality. 2. Diffuse osteopenia without focal lytic or destructive bony process. 3. Medial soft tissue swelling. No soft tissue gas or radiopaque foreign body Electronically Signed: Duc Gregory MD at 19:18 EST , CC: ALVA Parr; Dr. Bairon Torres MD Explosive Operator: Signed Normal [facility] Sinus/Facial Boneon 02-27-20 Sinus/Facial Bone [facility] Imaging Services [address] [place] [address] Sinus/Facial Bone MR#: [id number] Acct: [id number] Name: Jaye MARTINEZ Rep #: [id number] : 1935 F 88 From: Duc Jj PCP: Dr. Bairon Torres MD Status: REG ER Study: Sinus/Facial Bone Date of Exam: 02/27/24 Exam# [id number] Ordering Dr: Augustin Parr :[id number] INDICATION: fall EXAMINATION: CT FACIAL BONES - CT Maxillofacial W/O Contrast Injection TECHNIQUE: Helically acquired images were obtained of the facial bones. A radiation dose optimization technique was used for this scan. IV Contrast dosage and agent: None. Radiation Dose (provided by facility) CTDIvol (29.38 ) mGy, DLP ( 606.22) mGy-cm COMPARISON: None. FINDINGS: ORBITS: 1. Normal appearance the bony duval the orbits. Soft tissue planes including preseptal and post septal soft tissue planes have normal appearance. Normal appearance of the globes, ocular lenses and optic nerves. NASAL SKELETON: Normal, no fractures noted. Nasal septum is near midline. PARANASAL SINUSES: [Ethmoid mucosal thickening. Remaining paranasal sinuses are clear. SKULL BASE AND ZYGOMATIC ARCHES: Normal, normal alignment, no fractures noted. VISUALIZED MANDIBLE: 1. Normal configuration of the mandible without fracture however significant TMJ degenerative changes. 2. The patient is partially edentulous. Visualized dentition appears intact. OTHER: Normal appearance of the deep spaces of the head and visualized upper neck. Airway has normal appearance. CT/Sinus/Facial Bone IMPRESSION: 1. No maxillofacial fractures noted. 2. [There is moderate LEFT Ethmoid mucosal thickening. Remaining paranasal sinuses are clear. 3. Normal appearance of the orbits including the globes and retrobulbar soft tissue planes. Electronically Signed: Duc Gregory MD at 19:22 EST , CC: ALVA Parr; Dr. Bairon Torres MD Explosive Operator: Signed Normal [facility] Spine Cervical without Contr ason 02-27-2024 Spine Cervical without Contras [facility] Imaging Services [address] [place], [place] [id number] Spine Cervical without Contras MR#: [id number] Acct: [id number] Name: Jaye MARTINEZ Rep #: [id number] : 1935 F 88 From: Duc Jj PCP: Dr. Bairon Torres MD Status: REG ER Study: Spine Cervical without Contras Date of Exam: 04/29/23 Exam# [id number] Ordering Dr: Augustin Parr :[id number] INDICATION: fall EXAMINATION: CT CERVICAL SPINE - CT Spine Cervical W/O Contrast Injection TECHNIQUE: Helically acquired images were obtained of the cervical spine. 2D reformatted images were reviewed. A radiation dose optimization technique was used for this scan. Noncontrast images obtained. IV Contrast dosage and agent: None. Radiation Dose (provided by facility) CTDIvol (NA ) mGy, DLP ( NA) mGy-cm COMPARISON: : No relevant prior comparison study available FINDINGS: VERTEBRAE: No fracture or traumatic subluxation. No discrete lytic or blastic abnormality. Normal alignment. Normal craniocervical junction and cervicothoracic junction. Normal appearance of the odontoid process. Incidental note of a hemangioma at C5. DISCS and SPINAL CANAL: Disc heights are preserved. No critical stenosis. NECK SOFT TISSUES: No prevertebral soft tissue swelling. There is no cervical adenopathy. LUNG APICES: Asymmetric pleural thickening at the LEFT apex without underlying mass. CERVICAL CAROTID: No significant vascular calcifications. CT/Spine Cervical without Contras IMPRESSION: 1. No evidence of acute cervical spinal fracture or spondylolisthesis. 2. Incidental note of LEFT apical pleural thickening. No underlying mass is noted. Electronically Signed: Duc Gregory MD at 19:16 EST , CC: ALVA Parr; Dr. Bairon Torres MD Explosive Operator: Signed Normal [facility] CBC W Auto Differential pane l (Bld)on 11-11-2023 Basophils (Bld) [#/Vol] 0.04 10*3/uL Normal <0.11 [facility] Comment on above: Order Comment: Speci men Type: BLOOD SPECIMENOrdering Facility: [facility] Address: [address] [place] [address] Performed By: #### 5 7021-8 ####[facility] LABCL[facility] [id number] [place] [address] [place] Basophils/100 WBC (Bld) 0.7 % Normal [facility] Comment on above: Order Comment: Speci men Type: BLOOD SPECIMENOrdering Facility: [facility] Address: [address] [place] [address] Performed By: #### 5 7021-8 ####[facility] LABCL[facility] [id number] [place] [address] [place] Differential cell count method Nom (Bld) Auto Normal [facility] Comment on above: Order Comment: Speci men Type: BLOOD SPECIMENOrdering Facility: [facility] Address: [address] [place] [address] Performed By: #### 5 7021-8 ####[facility] LABCL[facility] [id number] [place] [address] [place] Eosinophils (Bld) [#/Vol] 0.27 10*3/uL Normal <0.46 [facility] Comment on above: Order Comment: Speci men Type: BLOOD SPECIMENOrdering Facility: [facility] Address: [address] [place] [address] Performed By: #### 5 7021-8 ####[facility] LABCL[facility] [id number] [place] [address] [place] Eosinophils/100 WBC (Bld) 4.6 % Normal [facility] Comment on above: Order Comment: Faisali men Type: BLOOD SPECIMENOrdering Facility: [facility] Address: [address] [place] [address] Performed By: #### 5 7021-8 ####[facility] LABCL[facility] [id number] [place] [address] [place] Erythrocyte distribution width (RBC) [Ratio] 12.3 % Normal 11.5-15.0 [facility] Comment on above: Order Comment: Faisali tobias Type: BLOOD SPECIMENOrdering Facility: [facility] Address: [address] [place] [address] Performed By: #### 5 7021-8 ####[facility] LABCLIA [id number] [place] [address] [place] Hematocrit (Bld) [Volume fraction] 38.7 % Normal 36.0-46.0 [facility] Comment on above: Order Comment: Faisali men Type: BLOOD SPECIMENOrdering Facility: [facility] Address: [address] [place] [address] Performed By: #### 5 7021-8 ####[facility] LABCLIA [id number] [place] [id number] [place] Hemoglobin (Bld) [Mass/Vol] 12.8 g/dL Normal 11.5-15.5 [facility] Comment on above: Order Comment: Speci men Type: BLOOD SPECIMENOrdering Facility: [facility] Address: [address] [place] [address] Performed By: #### 5 7021-8 ####[facility]CL[facility] [id number] [place] [address] [place] Immature granulocytes (Bld) [#/Vol] 10*3/uL Normal <0.10 [facility] Comment on above: Order Comment: Speci men Type: BLOOD SPECIMENOrdering Facility: [facility] Address: [address] [place] [address] Performed By: #### 5 7021-8 ####[facility] LABCLIA [id number] [place] [address] [place] Immature granulocytes/100 WBC (Bld) 0.3 % Normal [facility] Comment on above: Order Comment: Speci men Type: BLOOD SPECIMENOrdering Facility: [facility] Address: [address] [place] [address] Performed By: #### 5 7021-8 ####[facility] LABCLIA [id number] [place] [address] [place] Lymphocytes (Bld) [#/Vol] 1.49 10*3/uL Normal 1.00-4.00 [facility] Comment on above: Order Comment: Speci men Type: BLOOD SPECIMENOrdering Facility: [facility] Address: [address] [place] [address] Performed By: #### 5 7021-8 ####[facility] LABCLIA [id number] [place] [id number] [place] Lymphocytes/100 WBC (Bld) 25.1 % Normal [facility] Comment on above: Order Comment: Speci men Type: BLOOD SPECIMENOrdering Facility: [facility] Address: [address] [place] [address] Performed By: #### 5 7021-8 ####[facility] LABCL[facility] [id number] [place] [address] [place] MCH (RBC) [Entitic mass] 31.8 pg Normal 26.0-34.0 [facility] Comment on above: Order Comment: Speci men Type: BLOOD SPECIMENOrdering Facility: [facility] Address: [address] [place] [address] Performed By: #### 5 7021-8 ####[facility] [id number] [address] [place] MCHC (RBC) [Mass/Vol] 33.1 g/dL Normal 30.5-36.0 [facility] Comment on above: Order Comment: Speci men Type: BLOOD SPECIMENOrdering Facility: [facility] Address: [address] [place] [address] Performed By: #### 5 7021-8 ####[facility] [id number] [place] [address] [place] MCV (RBC) [Entitic vol] 96.3 fL Normal 80.0-100.0 [facility] Comment on above: Order Comment: Speci men Type: BLOOD SPECIMENOrdering Facility: [facility] Address: [address] [place] [address] Performed By: #### 5 7021-8 ####[facility] [id number] [place] [address] [place] Monocytes (Bld) [#/Vol] 0.63 10*3/uL Normal <0.87 [facility] Comment on above: Order Comment: Speci men Type: BLOOD SPECIMENOrdering Facility: [facility] Address: [address] [place] [address] Performed By: #### 5 7021-8 ####[facility] [id number] [address] [place] Monocytes/100 WBC (Bld) 10.6 % Normal [facility] Comment on above: Order Comment: Speci men Type: BLOOD SPECIMENOrdering Facility: [facility] Address: [address] [place] [address] Performed By: #### 5 7021-8 ####[facility]CL[facility] [id number] [place] [address] [place] Neutrophils (Bld) [#/Vol] 3.48 10*3/uL Normal 1.45-7.50 [facility] Comment on above: Order Comment: Speci men Type: BLOOD SPECIMENOrdering Facility: [facility] Address: [address] [place] [address] Performed By: #### 5 7021-8 ####[facility] LABCL[facility] [id number] [place] [address] [place] Neutrophils/100 WBC (Bld) 58.7 % Normal [facility] Comment on above: Order Comment: Speci men Type: BLOOD SPECIMENOrdering Facility: [facility] Address: [address] [place] [address] Performed By: #### 5 7021-8 ####[facility] LABCL[facility] [id number] [place] [address] [place] Nucleated RBC (Bld) [#/Vol] 10*3/uL Normal <0.01 [facility] Comment on above: Order Comment: Speci men Type: BLOOD SPECIMENOrdering Facility: [facility] Address: [address] [place] [address] Performed By: #### 5 7021-8 ####[facility] LABCLIA [id number] [place] [id number] [place] Nucleated RBC/100 WBC (Bld) [Ratio] 0.0 /100 WBC Normal [facility] Comment on above: Order Comment: Speci men Type: BLOOD SPECIMENOrdering Facility: [facility] Address: [address] [place] [address] Performed By: #### 5 7021-8 ####[facility] LABCL[facility] [id number] [place] [address] [place] Platelet mean volume (Bld) [Entitic vol] 9.7 fL Normal 9.0-12.7 [facility] Comment on above: Order Comment: Speci men Type: BLOOD SPECIMENOrdering Facility: [facility] Address: [address] [place] [address] Performed By: #### 5 7021-8 ####[facility] [id number] [place] [address] [place] Platelets (Bld) [#/Vol] 204 10*3/uL Normal 150-400 [facility] Comment on above: Order Comment: Speci men Type: BLOOD SPECIMENOrdering Facility: [facility] Address: [address] [place] [address] Performed By: #### 5 7021-8 ####[facility] [id number] [place] [address] [place] RBC (Bld) [#/Vol] 4.02 10*6/uL Normal 3.90-5.20 [facility] Comment on above: Order Comment: Speci men Type: BLOOD SPECIMENOrdering Facility: [facility] Address: [address] [place] [address] Performed By: #### 5 7021-8 ####[facility] [id number] [place] [address] [place] WBC (Bld) [#/Vol] 5.93 10*3/uL Normal 3.70-11.00 [facility] Comment on above: Order Comment: Speci men Type: BLOOD SPECIMENOrdering Facility: [facility] Address: [address] [place] [address] Performed By: #### 5 7021-8 ####[facility] [id number] [place] [id number] [place] CNOVon 11-11-2023 CNOV Office Visit (NEMOWS ) GUICHO MARTINEZ ([id number]) 1935 F Date Time Provider Department 11/11/23 3:45 PM HUE TORRES During your visit today, we recorded the following information about you: Pulse Respiration Blood pressure Weight 68/minute 16/minute 111/68 42 kg Hue Torres PA-C 11/11/2023 4:48 PM Signed [facility] Name: Guicho Martinez Age: [age] year old Gender: female Primary Care Provider: Bairon Torres MD 11/11/2023 - General Neurology, Hue Torres PA-C ASSESSMENT ASSESSMENT/PLAN: 1. Dementia without behavioral disturbance, psychotic disturbance, mood disturbance, or anxiety, unspecified dementia severity, unspecified dementia type (HCC) - ICD9: 294.20, ICD10: F03.90 Patient with her daughter for follow-up appointment. Doing very well in terms of memory and dementia. Unfortunately, was unable to do a [place] due to time constraints. 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 Patient's primary concern today was her neighbor who has been having some issues with cognition, seems to bother her and is very bossy. Prevents her from going outside and going on walks as she seems to watch for her. Daughter notes this is caused her to be more agitated and on edge. Otherwise, patient is doing very well, did gain a pound and a half since last appointment. Notes that she is eating all the time, eats lots of high caloric foods. Encouraged high calorie drinks as well including Ensure and patient and daughter states they will try these as well. Patient no longer driving. Still compliant with Exelon 1.5 mg. No new concerns today that would warrant additional workup. Encouraged conservative therapy as well including increasing physical activity and cognitive activity. Discussed safety precautions at home as well in depth. Patient and daughter agreeable to treatment plan of care at this time, questions were answered. Patient to follow-up in 5 to 6 months, or sooner should any symptoms change or worsen. This is a 88 year old female followed for memory loss. Current medication treatment: Exelon 1.5 mg Indication for repeat cognitive testing: No No diagnosis found. No follow-ups on file. Chart, labs,and relevant images reviewed. Chief Complaint:No chief complaint on file. Chart Review: Last Filed Values None HPI: Last seen on 05/28/23 for dementia. Presents with daughter, no longer driving. Weight stable but BMI of 16. MoCA . On exelon. Lives alone and family visits regularly. Patient presents with her daughter for follow-up appointment. Patient still living alone doing well. Did gain about a pound and a half, is unsure where she has gained more as she is eating all day, states that she eats a lot of high calorie foods as well. No falls since last appointment. No new concerns today. Note that she is having some frustrations with her neighbor who is 89 and asks her to do a lot of things. Notes that she has a hard time going outside because she is worried about this neighbor bothering her, this prevents her from doing a lot of physical activity that she loves to do. Daughter notes that she is more agitated lately because of this. Notes that her memory has been stable, no concerns with this. Uses the stove few times a week without leaving on, doing really well. No confusion at night or wandering. Daughter does note that she is been having some issues with seeing things that are right in front of her. Was told by her eye doctor and primary care that was secondary to cognition and not an eye problem. Drinks a few glasses of water a day. Is not as physically active as she would like as her neighbor prevents her from going on walks daily. No issues with sleep. No new concerns today. Sleep concerns? no Eating/nutrition concerns? Med side effects concerns? no Hallucinations? no Social work consult interest? no Wandering/getting lost concern? no Caregiver burnout concern? no Driving safety concern? 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 Normal [facility] Comprehensive metabolic 2000 panelon 11-11-2023 Albumin [Mass/Vol] 4.2 g/dL Normal 3.9-4.9 [facility] Comment on above: Order Comment: Speci men Type: BLOOD SPECIMENOrdering Facility: [facility] Address: [address] [place] [address] Performed By: #### 2 4323-8 ####[facility] LABCL[facility] [id number] [place] [address] [place] ALP [Catalytic activity/Vol] 73 U/L Normal 34-123 [facility] Comment on above: Order Comment: Speci men Type: BLOOD SPECIMENOrdering Facility: [facility] Address: [address] [place] [address] Performed By: #### 2 4323-8 ####[facility]CL[facility] [id number] [place] [address] [place] ALT [Catalytic activity/Vol] 17 U/L Normal 7-38 [facility] Comment on above: Order Comment: Speci men Type: BLOOD SPECIMENOrdering Facility: [facility] Address: [address] [place] [address] Performed By: #### 2 4323-8 ####[facility]CL[facility] [id number] [place] [address] [place] Anion gap [Moles/Vol] 12 mmol/L Normal 8-15 [facility] Comment on above: Order Comment: Speci men Type: BLOOD SPECIMENOrdering Facility: [facility] Address: [address] [place] [address] Performed By: #### 2 4323-8 ####[facility]CL[facility] [id number] [place] [address] [place] AST [Catalytic activity/Vol] 28 U/L Normal 13-35 [facility] Comment on above: Order Comment: Speci men Type: BLOOD SPECIMENOrdering Facility: [facility] Address: [address] [place] [address] Performed By: #### 2 4323-8 ####[facility] [id number] [place] [address] [place] Bilirubin [Mass/Vol] 0.4 mg/dL Normal 0.2-1.3 [facility] Comment on above: Order Comment: Speci men Type: BLOOD SPECIMENOrdering Facility: [facility] Address: [address] [place] [address] Performed By: #### 2 4323-8 ####[facility] [id number] [place] [address] [place] Calcium [Mass/Vol] 9.4 mg/dL Normal 8.5-10.2 [facility] Comment on above: Order Comment: Speci men Type: BLOOD SPECIMENOrdering Facility: [facility] Address: [address] [place] [address] Performed By: #### 2 4323-8 ####[facility]CL[facility] [id number] [place] [address] [place] Chloride [Moles/Vol] 104 mmol/L Normal 98-107 [facility] Comment on above: Order Comment: Speci men Type: BLOOD SPECIMENOrdering Facility: [facility] Address: [address] [place] [address] Performed By: #### 2 4323-8 ####[facility] [id number] [place] [id number] [place] CO2 [Moles/Vol] 26 mmol/L Normal 22-30 [facility] Comment on above: Order Comment: Speci men Type: BLOOD SPECIMENOrdering Facility: [facility] Address: [address] [place] [address] Performed By: #### 2 4323-8 ####[facility] LABIA [id number] [place] [address] [place] Creatinine [Mass/Vol] 0.95 mg/dL Normal 0.58-0.96 [facility] Comment on above: Order Comment: Speci men Type: BLOOD SPECIMENOrdering Facility: [facility] Address: [address] [place] [address] Performed By: #### 2 4323-8 ####[facility] LABIA [id number] [address] [place] Creatinine and Glomerular filtration rate.predicted panel (S/P/Bld) 58 mL/min/1.73m??? Low >=60 [facility] Comment on above: Order Comment: Speci men Type: BLOOD SPECIMENOrdering Facility: [facility] Address: [address] [place] [address] Result Comment: Josey mated Glomerular Filtration Rate (eGFR) is calculated using the 2020 CKD-EPI creatinine equation. This equation utilizes serum creatinine, sex, and age as parameters. The creatinine assay has traceable calibration to isotope dilution-mass spectrometry. Refer to KDIGO guidelines for clinical interpretation. In patients with unstable renal function, e.g. those with acute kidney injury, the eGFR may not accurately reflect actual GFR. Performed By: #### 2 4323-8 ####[facility] LABIA [id number] [place] [address] [place] Glucose [Mass/Vol] 91 mg/dL Normal 74-99 [facility] Comment on above: Order Comment: Speci men Type: BLOOD SPECIMENOrdering Facility: [facility] Address: [address] [place] [address] Result Comment: The [place] [employer] (ADA) provides guidance for cutoff values for fasting glucose and random glucose. The ADA defines fasting as no caloric intake for at least 8 hours. Fasting plasma glucose results between 100 to 125 [...] Standards of Medical Care in Diabetes 2016, [place] [employer]. Diabetes Care. 2016.39(Suppl 1). Performed By: #### 2 4323-8 ####[facility]CL[facility] [id number] [place] [address] [place] Potassium [Moles/Vol] 4.1 mmol/L Normal 3.7-5.1 [facility] Comment on above: Order Comment: Sima collado Type: BLOOD SPECIMENOrdering Facility: [facility] Address: [address] [place] [address] Performed By: #### 2 4322-8 ####[facility] LABIA [id number] [place] [address] [place] Protein [Mass/Vol] 6.9 g/dL Normal 6.3-8.0 [facility] Comment on above: Order Comment: Sima collado Type: BLOOD SPECIMENOrdering Facility: The [facility] Address: [address] [place] [address] Performed By: #### 2 4322-8 ####[facility] LABIA [id number] [place] [id number] [place] Sodium [Moles/Vol] 142 mmol/L Normal 136-144 [facility] Comment on above: Order Comment: Sima collado Type: BLOOD SPECIMENOrdering Facility: [facility] Address: [address] [place] [address] Performed By: #### 2 432-8 ####[facility] LABCLIA [id number] [place] [id number] [place] Urea nitrogen [Mass/Vol] 19 mg/dL Normal 7- [facility] Comment on above: Order Comment: Speci men Type: BLOOD SPECIMENOrdering Facility: [facility] Address: [address] [place] [address] Performed By: #### 2 4323-8 ####[facility] LABCLIA [id number] [address] [place] CNPNon 10-22-2023 CNPN Telephone (FAMPWS) GUICHO MARTINEZ ([id number]) 1935 F Date Time Provider Department 10/22/23 [facility] During your visit today, we recorded the following information about you: Bairon Torres MD 10/22/2023 8:52 AM Signed Let daughter, Marimar, know her mother's labs were al good. Keerthi Go MA 10/22/2023 9:10 AM Signed Spoke with daughter and gave results. Keerthi Go MA Allergies As of Date: 10/22/2023 Noted Allergy Reaction ASA (SALICYLATES) 01/08/2005 14 - Other: See Comments Comments: Hx of low plateletes IBUPROFEN 01/08/2005 4 - Hives PENICILLINS 01/08/2005 14 - Other: See Comments Comments: passed out ARICEPT (DONEPEZIL) 03/11/2022 14 - Other: See Comments Comments: Nausea, vomiting and dizziness. Date Reviewed: 10/21/2023 Reviewed by: Bairon Torres MD - Fully Assessed Reason for Visit: Results [95] Prescriptions as of 10/22/2023 - rivastigmine tartrate (EXELON) 1.5 mg capsule Take 1 capsule in the morning and 2 capsules at night. - rosuvastatin (CRESTOR) 5 mg tablet Take 1 tablet by mouth once daily. - hydrOXYchloroQUINE (PLAQUENIL) 200 mg tablet Take 1 tablet by mouth once daily. Per rheumatology - sokvbb-ihubgvrc-buujjkd (ZENPEP) 40,000-126,000- 168,000 unit delayed release capsule Take by mouth three times daily with meals. - BIOTIN ORAL Take 10,000 mcg by mouth once daily. - THERAPEUTIC MULTIVITAMIN TAB Take one(1) tablet daily. 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] 10/07/2013 06/21/2015 Lactose intolerance [E73.9] 02/23/2016 Osteoporosis [M81.0] 12/02/2018 Stage 3a chronic kidney disease (HCC) [N18.31] 07/18/2020 Elevated TSH [R79.89] 07/23/2021 Elevated blood sugar [R73.9] 07/23/2021 Fatigue [R53.83] 07/23/2021 Bilateral carotid artery stenosis [I65.23] 01/08/2022 Living will on file at physician's office [Z78.*03/06/2022 Advance directive discussed with patient [Z71.8*03/06/2022 Hydrocephalus in diseases classified elsewhere *04/01/2022 Dementia of the Alzheimer's type, with late ons*05/08/2022 Encounter for Medicare annual wellness exam [Z0*09/04/2022 Balance problems [R26.89] 08/25/2023 Risk for falls [Z91.81] 08/25/2023 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] 10/21/2023 Medication management [Z79.899] 10/21/2023 Corns [L84] 10/21/2023 Encounter Status:Closed by KEERTHI GO on 10/22/23 Normal [facility] CBC W Auto Differential pane l (Bld)on 10-21-2023 Basophils (Bld) [#/Vol] 0.05 10*3/uL [facility] Basophils/100 WBC (Bld) 0.7 % [facility] Differential cell count method Nom (Bld) Auto [facility] Eosinophils (Bld) [#/Vol] 0.29 10*3/uL [facility] Eosinophils/100 WBC (Bld) 4.3 % [facility] Erythrocyte distribution width (RBC) [Ratio] 12.1 % 11.5 - 15.0 % [facility] Hematocrit (Bld) [Volume fraction] 42.2 % 36.0 - 46.0 % [facility] Hemoglobin (Bld) [Mass/Vol] 13.5 g/dL 11.5 - 15.5 g/dL [facility] Immature granulocytes (Bld) [#/Vol] [facility] Immature granulocytes/100 WBC (Bld) 0.1 % [facility] Lymphocytes (Bld) [#/Vol] 1.22 10*3/uL [facility] Lymphocytes/100 WBC (Bld) 17.9 % [facility] MCH (RBC) [Entitic mass] 31.1 pg 26.0 - 34.0 pg [facility] MCHC (RBC) [Mass/Vol] 32.0 g/dL 30.5 - 36.0 g/dL [facility] MCV (RBC) [Entitic vol] 97.2 fL 80.0 - 100.0 fL [facility] Monocytes (Bld) [#/Vol] 0.67 10*3/uL [facility] Monocytes/100 WBC (Bld) 9.9 % [facility] Neutrophils (Bld) [#/Vol] 4.56 10*3/uL [facility] Neutrophils/100 WBC (Bld) 67.1 % [facility] Nucleated RBC (Bld) [#/Vol] [facility] Nucleated RBC/100 WBC (Bld) [Ratio] 0.0 % /100 WBC [facility] Platelet mean volume (Bld) [Entitic vol] 10.0 fL 9.0 - 12.7 fL [facility] Platelets (Bld) [#/Vol] 208 10*3/uL [facility] RBC (Bld) [#/Vol] 4.34 10*6/uL 3.90 - 5.2 0 m/uL [facility] WBC (Bld) [#/Vol] 6.80 10*3/uL [facility] Basophils (Bld) [#/Vol] 0.05 10*3/uL Normal <0.11 [facility] Comment on above: Order Comment: Speci men Type: BLOOD SPECIMENOrdering Facility: [facility] Address: [address] [place] [address] Performed By: #### 5 7021-8 ####[facility] LABCLIA [id number] [place] [address] [place] Basophils/100 WBC (Bld) 0.7 % Normal [facility] Comment on above: Order Comment: Speci men Type: BLOOD SPECIMENOrdering Facility: [facility] Address: [address] [place] [address] Performed By: #### 5 7021-8 ####[facility] LABCLIA [id number] [place] [address] [place] Differential cell count method Nom (Bld) Auto Normal [facility] Comment on above: Order Comment: Speci men Type: BLOOD SPECIMENOrdering Facility: [facility] Address: [address] [place] [address] Performed By: #### 5 7021-8 ####[facility] LABCLIA [id number] [place] [address] [place] Eosinophils (Bld) [#/Vol] 0.29 10*3/uL Normal <0.46 [facility] Comment on above: Order Comment: Speci men Type: BLOOD SPECIMENOrdering Facility: [facility] Address: [address] [place] [address] Performed By: #### 5 7021-8 ####[facility] LABCLIA [id number] [place] [address] [place] Eosinophils/100 WBC (Bld) 4.3 % Normal [facility] Comment on above: Order Comment: Speci men Type: BLOOD SPECIMENOrdering Facility: [facility] Address: [address] [place] [address] Performed By: #### 5 7021-8 ####[facility] LABCLIA [id number] [place] [address] [place] Erythrocyte distribution width (RBC) [Ratio] 12.1 % Normal 11.5-15.0 [facility] Comment on above: Order Comment: Speci men Type: BLOOD SPECIMENOrdering Facility: [facility] Address: [address] [place] [address] Performed By: #### 5 7021-8 ####[facility] LABCLIA [id number] [place] [address] [place] Hematocrit (Bld) [Volume fraction] 42.2 % Normal 36.0-46.0 [facility] Comment on above: Order Comment: Speci men Type: BLOOD SPECIMENOrdering Facility: [facility] Address: [address] [place] [address] Performed By: #### 5 7021-8 ####[facility] LABCLIA [id number] [place] [address] [place] Hemoglobin (Bld) [Mass/Vol] 13.5 g/dL Normal 11.5-15.5 [facility] Comment on above: Order Comment: Speci men Type: BLOOD SPECIMENOrdering Facility: [facility] Address: [address] [place] [address] Performed By: #### 5 7021-8 ####[facility] LABCLIA [id number] [place] [address] [place] Immature granulocytes (Bld) [#/Vol] 10*3/uL Normal <0.10 [facility] Comment on above: Order Comment: Speci men Type: BLOOD SPECIMENOrdering Facility: [facility] Address: [address] [place] [address] Performed By: #### 5 7021-8 ####[facility] LABCLIA [id number] [place] [address] [place] Immature granulocytes/100 WBC (Bld) 0.1 % Normal [facility] Comment on above: Order Comment: Speci men Type: BLOOD SPECIMENOrdering Facility: [facility] Address: [address] [place] [address] Performed By: #### 5 7021-8 ####[facility] LABCLIA [id number] [place] [address] [place] Lymphocytes (Bld) [#/Vol] 1.22 10*3/uL Normal 1.00-4.00 [facility] Comment on above: Order Comment: Speci men Type: BLOOD SPECIMENOrdering Facility: [facility] Address: [address] [place] [address] Performed By: #### 5 7021-8 ####[facility] LABCLIA [id number] [place] [address] [place] Lymphocytes/100 WBC (Bld) 17.9 % Normal [facility] Comment on above: Order Comment: Speci men Type: BLOOD SPECIMENOrdering Facility: [facility] Address: [address] [place] [address] Performed By: #### 5 7021-8 ####[facility] LABCLIA [id number] [place] [address] [place] MCH (RBC) [Entitic mass] 31.1 pg Normal 26.0-34.0 [facility] Comment on above: Order Comment: Speci men Type: BLOOD SPECIMENOrdering Facility: [facility] Address: [address] [place] [address] Performed By: #### 5 7021-8 ####[facility] LABCLIA [id number] [place] [address] [place] MCHC (RBC) [Mass/Vol] 32.0 g/dL Normal 30.5-36.0 [facility] Comment on above: Order Comment: Speci men Type: BLOOD SPECIMENOrdering Facility: [facility] Address: [address] [place] [address] Performed By: #### 5 7021-8 ####[facility] LABIA [id number] [place] [address] [place] MCV (RBC) [Entitic vol] 97.2 fL Normal 80.0-100.0 [facility] Comment on above: Order Comment: Speci men Type: BLOOD SPECIMENOrdering Facility: [facility] Address: [address] [place] [address] Performed By: #### 5 7021-8 ####[facility] LABIA [id number] [place] [address] [place] Monocytes (Bld) [#/Vol] 0.67 10*3/uL Normal <0.87 [facility] Comment on above: Order Comment: Speci men Type: BLOOD SPECIMENOrdering Facility: [facility] Address: [address] [place] [address] Performed By: #### 5 7021-8 ####[facility] LABIA [id number] [place] [address] [place] Monocytes/100 WBC (Bld) 9.9 % Normal [facility] Comment on above: Order Comment: Speci men Type: BLOOD SPECIMENOrdering Facility: [facility] Address: [address] [place] [address] Performed By: #### 5 7021-8 ####[facility] LABIA [id number] [place] [address] [place] Neutrophils (Bld) [#/Vol] 4.56 10*3/uL Normal 1.45-7.50 [facility] Comment on above: Order Comment: Speci men Type: BLOOD SPECIMENOrdering Facility: [facility] Address: [address] [place] [address] Performed By: #### 5 7021-8 ####[facility] LABCLIA [id number] [place] [address] [place] Neutrophils/100 WBC (Bld) 67.1 % Normal [facility] Comment on above: Order Comment: Speci men Type: BLOOD SPECIMENOrdering Facility: [facility] Address: [address] [place] [address] Performed By: #### 5 7021-8 ####[facility] LABCLIA [id number] [place] [address] [place] Nucleated RBC (Bld) [#/Vol] 10*3/uL Normal <0.01 [facility] Comment on above: Order Comment: Speci men Type: BLOOD SPECIMENOrdering Facility: [facility] Address: [address] [place] [address] Performed By: #### 5 7021-8 ####[facility] LABCLIA [id number] [place] [address] [place] Nucleated RBC/100 WBC (Bld) [Ratio] 0.0 /100 WBC Normal [facility] Comment on above: Order Comment: Speci men Type: BLOOD SPECIMENOrdering Facility: [facility] Address: [address] [place] [address] Performed By: #### 5 7021-8 ####[facility] LABCLIA [id number] [place] [address] [place] Platelet mean volume (Bld) [Entitic vol] 10.0 fL Normal 9.0-12.7 [facility] Comment on above: Order Comment: Speci men Type: BLOOD SPECIMENOrdering Facility: [facility] Address: [address] [place] [address] Performed By: #### 5 7021-8 ####[facility] LABIA [id number] [place] [address] [place] Platelets (Bld) [#/Vol] 208 10*3/uL Normal 150-400 [facility] Comment on above: Order Comment: Speci men Type: BLOOD SPECIMENOrdering Facility: [facility] Address: [address] [place] [address] Performed By: #### 5 7021-8 ####[facility] LABIA [id number] [place] [address] [place] RBC (Bld) [#/Vol] 4.34 10*6/uL Normal 3.90-5.20 [facility] Comment on above: Order Comment: Speci men Type: BLOOD SPECIMENOrdering Facility: [facility] Address: [address] [place] [address] Performed By: #### 5 7021-8 ####[facility] LABIA [id number] [place] [address] [place] WBC (Bld) [#/Vol] 6.80 10*3/uL Normal 3.70-11.00 [facility] Comment on above: Order Comment: Speci men Type: BLOOD SPECIMENOrdering Facility: [facility] Address: [address] [place] [address] Performed By: #### 5 7021-8 ####[facility] LABIA [id number] [place] [address] [place] CNOVon 10-21-2023 CNOV Office Visit (FAMPWS ) GUICHO MARTINEZ ([id number]) 1935 F Date Time Provider Department 10/21/23 1:00 PM BAIRON TORRES During your visit today, we recorded the following information about you: Pulse Respiration Blood pressure Weight 64/minute 14/minute 128/72 41.3 kg Height 1.588 m Bairon Torres MD 10/21/2023 2:03 PM Addendum Stop the fosamax (Alendronate) once a week pill Please get labs done on or after 04/09/2024 prior to your next visit. BONE MINERAL DENSITY PATIENT INSTRUCTIONS Bone mineral density testing measures the amount of calcium in certain parts of your bones. This information determines how strong your bones are. The test is used to detect osteoporosis, a disease in which the bone's mineral content and density are low, increasing a person's risk of fractures. The lumbar spine (lower back) and the hip are the skeletal sites usually examined. For the test, remember that: 1. You cannot take this test if you are . 2. Eat a normal diet on the day of the test. 3. Take your medications as you normally would. 4. DO NOT take calcium supplements (such as Tums) for 24 hours before the test. 5. On the day of the test, leave valuables (jewelry or credit cards) at home. 6. The test should be performed prior to oral, rectal or IV contrast studies, or at least 7 days after any of these studies. For the test, you may be asked to wear a hospital gown. You will lie on your back, on a padded table, in a comfortable position. Generally, you can resume your usual activities immediately. Screening schedule The following prevention plan is recommended: Advance Directive Discussion due on 03/03/2023 Bone Density Screening due on 04/03/2023 Covid-19 Vaccine( season) due on 07/12/2023 WHAT YOU CAN DO TO PREVENT FALLS Many falls can be prevented. By making some changes, you can lower your chances of falling. Four things YOU can do to prevent falls for you* and your caregiver 1. Begin a regular exercise program Exercise is one of the most important ways to lower your chances of falling. It makes you stronger and helps you feel better. Exercises that improve balance and coordination (like Akin Chi) are the most helpful. Lack of exercise leads to weakness and increases your chances of falling. Ask your doctor or health care provider about the best type of exercise program for you. 2. Have your health care provider review your medicines Have your doctor or pharmacist review all the medicines you take, even nukb-wez-tlpzyml medicines. As you get older, the way medicines work in your body can change. Some medicines, or combinations of medicines, can make you sleepy or dizzy and can cause you to fall. 3. Have your vision checked Have your eyes checked by an eye doctor at least once a year. You may be wearing the wrong glasses or have a condition like glaucoma or cataracts that limits your vision. Poor vision can increase your chances of falling. 4. Make your home safer About half of all falls happen at home. To make your home safer: Remove things you can trip over (like papers, books, clothes, and shoes) from stairs and places where you walk. Remove small throw rugs or use double-sided tape to keep the rugs from slipping. Keep items you use often in cabinets you can reach easily without using a step stool. Have grab bars put in next to your toilet and in the tub or shower. Use non-slip mats in the bathtub and on shower floors. Improve the lighting in your home. As you get older, you need brighter lights to see well. Hang light-weight curtains or shades to reduce glare. Have handrails and lights put in on all staircases. Wear shoes both inside and outside the house. Avoid going barefoot or wearing slippers. For more information, contact: Centers for Disease Control and Prevention www.cdc.gov/injury * This information may not apply if you have certain medical conditions. Bairon Torres MD 10/21/2023 2:24 PM Signed Guicho Martinez is a 88 year old female here for a Medicare wellness visit. Medicare Health Risk Assessment General Health Fair Exercise: Minutes/Day Patient declined Exercise: Days/Week Patient declined Alcohol: Daily Use Alcohol: Drinks/Day Patient does not drink Alcohol: 6 or more drinks Never Feel off balance No Concerns: Teeth/Dentures No Concerns: Sexual function No Troubled by feelings None of the above Frequency: Eating healthy diet Several days ADLs requiring help None of the above Safety precautions in home/vehicle Yes Smoke, vape, chews tobacco No Difficulty hearing No Difficulty seeing No Current Providers Specialists: I have reviewed specialist-related care of the patient in the medical record. Current care team: Patient Care Team: Bairon Torres MD as PCP (more content not included)... Normal [facility] Comprehensive metabolic 2000 panelon 10-21-2023 Albumin [Mass/Vol] 4.4 g/dL 3.9 - 4.9 g/dL [facility] ALP [Catalytic activity/Vol] 80 U/L 34 - 123 U/L [facility] ALT [Catalytic activity/Vol] 12 U/L 7 - 38 U/L [facility] Anion gap [Moles/Vol] 9 mmol/L 8 - 15 mmol/L [facility] AST [Catalytic activity/Vol] 26 U/L 13 - 35 U/L [facility] Bilirubin [Mass/Vol] 0.6 mg/dL 0.2 - 1 .3 mg/dL [facility] Calcium [Mass/Vol] 10.0 mg/dL 8.5 - 10. 2 mg/dL [facility] Chloride [Moles/Vol] 101 mmol/L 98 - 10 7 mmol/L [facility] CO2 [Moles/Vol] 30 mmol/L 22 - 30 mmol/L [facility] Creatinine [Mass/Vol] 0.93 mg/dL 0.58 - 0.96 mg/dL [facility] GFR/1.73 sq M.predicted among non-blacks MDRD (S/P/Bld) [Vol rate/Area] 60 mL/min/{1.73_m2} - PINF [facility] Comment on above: Estimated Glomerular Filtration Rate (eGFR) is calculated using the 2020 CKD-EPI creatinine equation. This equation utilizes serum creatinine, sex, and age as parameters. The creatinine assay has traceable calibration to isotope dilution-mass spectrometry. Refer to KDIGO guidelines for clinical interpretation. In patients with unstable renal function, e.g. those with acute kidney injury, the eGFR may not accurately reflect actual GFR. Glucose [Mass/Vol] 87 mg/dL 74 - 99 mg/dL [facility] Comment on above: The [place] [employer] Association (ADA) provides guidance for cutoff values for fasting glucose and random glucose. The ADA defines fasting as no caloric intake for at least 8 hours. Fasting plasma glucose results between 100 to 125 [...] Standards of Medical Care in Diabetes 2016, [place] [employer]. Diabetes Care. 2016.39(Suppl 1). Potassium [Moles/Vol] 4.7 mmol/L 3.7 - 5.1 mmol/L [facility] Protein [Mass/Vol] 7.0 g/dL 6.3 - 8.0 g/dL [facility] Sodium [Moles/Vol] 140 mmol/L 136 - 144 mmol/L [facility] Urea nitrogen [Mass/Vol] 13 mg/dL 7 - 21 mg/dL [facility] Albumin [Mass/Vol] 4.4 g/dL Normal 3.9-4.9 [facility] Comment on above: Order Comment: Speci men Type: BLOOD SPECIMENOrdering Facility: [facility] Address: [address] [place] [address] Performed By: #### L IPNF, 3016-3, 60298-8 ####[facility] LABCLIA [id number] [place] [address] [place] ALP [Catalytic activity/Vol] 80 U/L Normal 34-123 [facility] Comment on above: Order Comment: Speci men Type: BLOOD SPECIMENOrdering Facility: [facility] Address: [address] [place] [address] Performed By: #### L IPNF, 6-3, 20724-5 ####[facility] LABCLIA [id number] [place] [address] [place] ALT [Catalytic activity/Vol] 12 U/L Normal 7-38 [facility] Comment on above: Order Comment: Speci men Type: BLOOD SPECIMENOrdering Facility: [facility] Address: [address] [place] [address] Performed By: #### L CHILONF, 3015-05, ####[facility] LABCLIA [id number] [place] [id number] [place] Anion gap [Moles/Vol] 9 mmol/L Normal 8-15 [facility] Comment on above: Order Comment: Speci men Type: BLOOD SPECIMENOrdering Facility: [facility] Address: [address] [place] [address] Performed By: #### L IPNF, 3015-05, ####[facility] LABCLIA [id number] [place] [address] [place] AST [Catalytic activity/Vol] 26 U/L Normal 13-35 [facility] Comment on above: Order Comment: Speci men Type: BLOOD SPECIMENOrdering Facility: [facility] Address: [address] [place] [address] Performed By: #### L IPNF, 3015-05, ####[facility] LABCLIA [id number] [place] [address] [place] Bilirubin [Mass/Vol] 0.6 mg/dL Normal 0.2-1.3 [facility] Comment on above: Order Comment: Speci men Type: BLOOD SPECIMENOrdering Facility: [facility] Address: [address] [place] [address] Performed By: #### L IPNF, 3015-05, ####[facility] LABCLIA [id number] [place] [id number] [place] Calcium [Mass/Vol] 10.0 mg/dL Normal 8.5-10.2 [facility] Comment on above: Order Comment: Speci men Type: BLOOD SPECIMENOrdering Facility: [facility] Address: [address] [place] [address] Performed By: #### L IPNF, 6-3, 13462-4 ####[facility] LABCLIA [id number] [place] [address] [place] Chloride [Moles/Vol] 101 mmol/L Normal 98-107 [facility] Comment on above: Order Comment: Speci men Type: BLOOD SPECIMENOrdering Facility: [facility] Address: [address] [place] [address] Performed By: #### L IPNF, 6-3, 05889-5 ####[facility] LABCLIA [id number] [place] [address] [place] CO2 [Moles/Vol] 30 mmol/L Normal 22-30 [facility] Comment on above: Order Comment: Speci men Type: BLOOD SPECIMENOrdering Facility: [facility] Address: [address] [place] [address] Performed By: #### L IPNF, 6-3, 27544-8 ####[facility] LABCLIA [id number] [place] [address] [place] Creatinine [Mass/Vol] 0.93 mg/dL Normal 0.58-0.96 [facility] Comment on above: Order Comment: Speci men Type: BLOOD SPECIMENOrdering Facility: [facility] Address: [address] [place] [address] Performed By: #### L IPNF, 6-3, 79009-9 ####[facility] LABCLIA [id number] [place] [address] [place] Creatinine and Glomerular filtration rate.predicted panel (S/P/Bld) 60 mL/min/1.73m??? Normal >=60 [facility] Comment on above: Order Comment: Speci men Type: BLOOD SPECIMENOrdering Facility: [facility] Address: [address] [place] [address] Result Comment: Josey mated Glomerular Filtration Rate (eGFR) is calculated using the 2020 CKD-EPI creatinine equation. This equation utilizes serum creatinine, sex, and age as parameters. The creatinine assay has traceable calibration to isotope dilution-mass spectrometry. Refer to KDIGO guidelines for clinical interpretation. In patients with unstable renal function, e.g. those with acute kidney injury, the eGFR may not accurately reflect actual GFR. Performed By: #### L MELVIN, 3015-3, ####[facility] LABIA [id number] [place] [address] [place] Glucose [Mass/Vol] 87 mg/dL Normal 74-99 [facility] Comment on above: Order Comment: Sima collado Type: BLOOD SPECIMENOrdering Facility: [facility] Address: [address] [place] [address] Result Comment: The [place] Diabetes Association (ADA) provides guidance for cutoff values for fasting glucose and random glucose. The ADA defines fasting as no caloric intake for at least 8 hours. Fasting plasma glucose results between 100 to 125 [...] Standards of Medical Care in Diabetes 2016, [place] [employer] Association. Diabetes Care. 2016.39(Suppl 1). Performed By: #### L MELVIN, 3015-05, ####[facility] LABIA [id number] [place] [address] [place] Potassium [Moles/Vol] 4.7 mmol/L Normal 3.7-5.1 [facility] Comment on above: Order Comment: Sima collado Type: BLOOD SPECIMENOrdering Facility: [facility] Address: [address] [place] [address] Performed By: #### L MELVIN, 3015-05, ####[facility] LABCLIA [id number] [address] [address] [place] Protein [Mass/Vol] 7.0 g/dL Normal 6.3-8.0 [facility] Comment on above: Order Comment: Speci men Type: BLOOD SPECIMENOrdering Facility: [facility] Address: [address] [place] [address] Performed By: #### L IPNF, 3, ####[facility] LABIA [id number] [place] [address] [place] Sodium [Moles/Vol] 140 mmol/L Normal 136-144 [facility] Comment on above: Order Comment: Speci men Type: BLOOD SPECIMENOrdering Facility: [facility] Address: [address] [place] [address] Performed By: #### L IPNAGA, 3015-05, ####[facility] LABIA [id number] [place] [address] [place] Urea nitrogen [Mass/Vol] 13 mg/dL Normal 7-21 [facility] Comment on above: Order Comment: Speci men Type: BLOOD SPECIMENOrdering Facility: [facility] Address: [address] [place] [address] Performed By: #### L IPNF, 3015-05, ####[facility] LABIA [id number] [place] [address] [place] HbA1c (Bld)on 10-21-2023 Average glucose Estimated from glycated hemoglobin (Bld) [Mass/Vol] 111 mg/dL Normal [facility] Comment on above: Order Comment: Speci men Type: BLOOD SPECIMENOrdering Facility: [facility] Address: [address] [place] [address] Result Comment: eAG: (Estimated average glucose) is a calculated value from HgbA1c and is employee representative of the average blood glucose level in the last 2-3 month period. Performed By: #### 5 5454-3 ####[facility] LABCLIA [id number] [place] [address] [place] HbA1c (Bld) [Mass fraction] 5.5 % Normal 4.3-5.6 [facility] Comment on above: Order Comment: Speci men Type: BLOOD SPECIMENOrdering Facility: [facility] Address: [facility] [place] [address] Result Comment: [place] Diabetes Association guidelines indicate that patients with HgbA1c in the range 5.7-6.4% are at increased risk for development of diabetes, and intervention by lifestyle modification may be beneficial. HgbA1c greater or equal to 6.5% is considered diagnostic of diabetes. Performed By: #### 5 5454-3 ####[facility] LABCLIA [id number] [place] [address] [place] LIPID PANEL, NONFASTINGon Cholesterol [Mass/Vol] 145 mg/dL NINF - 200 mg/dL [facility] Comment on above: <200 mg/dL, Desirabl e 200-239 mg/dL, Borderline high >239 mg/dL, High HDL Cholesterol, Nonfasting 60 mg/dL 39 - PINF mg/dL [facility] Comment on above: 40-59 mg/dL, Accepta ble >59 mg/dL, High: Negative risk factor for coronary heart disease <40 mg/dL, Low: Positive risk factor for coronary heart disease LDL Cholesterol, Nonfasting 63 mg/dL NINF - 100 mg/dL [facility] Comment on above: <100 mg/dL, Optimal 100-129 mg/dL, Near optimal/above optimal 130-159 mg/dL, Borderline high 160-189 mg/dL, High >189 mg/dL, Very high Secondary prevention optimal LDL Cholesterol levels are recommended to be < 70 mg/dL LDL/HDL Ratio, Nonfasting 1.05 mg/dL NINF - 2.54 mg/dL [facility] Comment on above: Reference: 1. National Cholesterol Education Program ATP III Guideline At-A-Glance Quick Desk Reference: National Heart, Lung, and Blood [place]. National Institutes of Health. 2001: NIH Publication No. 01-3305. 2. An International Atherosclerosis Society position paper: global recommendations for the management of dyslipidemia: executive summary, Atherosclerosis. 2014: 232(2):410-413. Non HDL Cholesterol, Nonfasting 85 mg/dL NINF - 130 mg/dL [facility] Comment on above: <130 mg/dL, Optimal 130-159 mg/dL, Near optimal/above optimal 160-189 mg/dL, Borderline high 190-219 mg/dL, High >219 mg/dL, Very high Secondary prevention optimal non HDL Cholesterol levels are recommended to be <100 mg/dL Total Chol/HDL Ratio, Nonfasting 2.42 mg/dL NINF - 5.10 mg/dL [facility] Triglycerides, Nonfasting 110 mg/dL NINF - 150 mg/dL [facility] Comment on above: <150 mg/dL, Normal 150-199 mg/dL, Borderline high 200-499 mg/dL, High >499 mg/dL, Very high VLDL Cholesterol, Nonfasting 22 mg/dL NINF - 30 mg/dL [facility] Cholesterol [Mass/Vol] 145 mg/dL Normal <200 [facility] Comment on above: Order Comment: Speckenyon men Type: BLOOD SPECIMENOrdering Facility: [facility] Address: [address] [place] [address] Result Comment: <200 mg/dL, Desirable 200-239 mg/dL, Borderline high >239 mg/dL, High Performed By: #### L IPNF, 6-3, 27328-7 ####[facility] LABCLIA [id number] [place] [address] [place] HDL CHOLESTEROL, NF 60 mg/dL Normal >39 [facility] Comment on above: Order Comment: Sima collado Type: BLOOD SPECIMENOrdering Facility: [facility] Address: [address] [place] [address] Result Comment: 40-5 9 mg/dL, Acceptable >59 mg/dL, High: Negative risk factor for coronary heart disease <40 mg/dL, Low: Positive risk factor for coronary heart disease Performed By: #### L IPNF, 3016-3, 40906-5 ####[facility] LABCLIA [id number] [address] [place] LDL CHOLESTEROL, NF 63 mg/dL Normal <100 [facility] Comment on above: Order Comment: Sima collado Type: BLOOD SPECIMENOrdering Facility: [facility] Address: [address] [place] [address] Result Comment: <100 mg/dL, Optimal 100-129 mg/dL, Near optimal/above optimal 130-159 mg/dL, Borderline high 160-189 mg/dL, High >189 mg/dL, Very high Secondary prevention optimal LDL Cholesterol levels are recommended to be < 70 mg/dL Performed By: #### L MELVIN, 3016-3, 52128-7 ####[facility] LABCLIA [id number] [address] LDL/HDL RATIO, NF 1.05 mg/dL Normal <2.54 [facility] Comment on above: Order Comment: Sima collado Type: BLOOD SPECIMENOrdering Facility: [facility] Address: [address] [place] [address] Result Comment: Refdayana yadav: 1. National Cholesterol Education Program ATP III Guideline At-A-Glance Quick Desk Reference: National Heart, Lung, and Blood [place]. National Institutes of Health. 2001: NIH Publication No. 01-3305. 2. An International Atherosclerosis Society position paper: global recommendations for the management of dyslipidemia: executive summary, Atherosclerosis. 2014: 232(2):410-413. Performed By: #### L IPNAGA, 3016-3, 29579-9 ####[facility] LABCLIA [id number] [place] [address] [place] NON HDL CHOL, NF 85 mg/dL Normal <130 [facility] Comment on above: Order Comment: Sima collado Type: BLOOD SPECIMENOrdering Facility: [facility] Address: [address] [place] [address] Result Comment: <130 mg/dL, Optimal 130-159 mg/dL, Near optimal/above optimal 160-189 mg/dL, Borderline high 190-219 mg/dL, High >219 mg/dL, Very high Secondary prevention optimal non HDL Cholesterol levels are recommended to be <100 mg/dL Performed By: #### L IPNF, 6-3, 72485-4 ####[facility] LABCLIA [id number] [place] [address] [place] T CHOL/HDL RATIO NF 2.42 mg/dL Normal <5.10 [facility] Comment on above: Order Comment: Speci men Type: BLOOD SPECIMENOrdering Facility: [facility] Address: [address] [place] [address] Performed By: #### L MELVIN, 3015-3, 03385-3 ####[facility] LABCLIA [id number] [place] [address] [place] TRIGLYCERIDES, NF 110 mg/dL Normal <150 [facility] Comment on above: Order Comment: Speci men Type: BLOOD SPECIMENOrdering Facility: [facility] Address: [address] [place] [address] Result Comment: <150 mg/dL, Normal 150-199 mg/dL, Borderline high 200-499 mg/dL, High >499 mg/dL, Very high Performed By: #### L MELVIN, 3015-3, ####[facility] LABCLIA [id number] [place] [address] [place] VLDL CHOLESTEROL, NF 22 mg/dL Normal <30 [facility] Comment on above: Order Comment: Speci men Type: BLOOD SPECIMENOrdering Facility: [facility] Address: [address] [place] [address] Performed By: #### L IPNF, 3015-3, 07249-4 ####[facility] LABCLIA [id number] [place] [address] [place] No Panel Informationon 10-20 Interpretation and review of laboratory results Normal [facility] THYROID STIMULATING HORMONEo n 10-21-2023 TSH Qn 2.010 m[IU]/L [facility] TSH Qnon 10-21-2023 Interpretation and review of laboratory results Normal [facility] TSH SerPl-aCncon 10-21-2023 TSH Qn 2.010 m[IU]/L Normal 0.270-4.200 [facility] Comment on above: Order Comment: Speci men Type: BLOOD SPECIMENOrdering Facility: [facility] Address: [address] [place] [address] Performed By: #### L IPNF, 3016-3, 10985-8 ####[facility] LABCLIA [id number] [facility] [id number] STATES [place] [facility] Absolute lymphocyte countOrd ered By: Samara Guzmán on 11-30-2022 Lymphocytes Auto (Unsp spec) [#/Vol] 1.06 10*3/uL 0.83-4.51 [facility] Basophil percentageOrdered B y: Samara Guzmán on 11-30-2022 Basophils/100 WBC (Bld) 0.7 % 0-1 [facility] Bilirubin [Mass/Vol] 0.70 mg/dL 0.20-1.00 [facility] Comment on above: For patients on eltr ombopag therapy, use of Dimension Raymond TBIL is not recommended. Chloride [Moles/Vol] 108 mmol/L 98-107 [facility] Eosinophils/100 WBC (Bld) 6.2 % 0-5 [facility] Glucose [Mass/Vol] 90 mg/dL 74-106 [facility] Neutrophils (Bld) [#/Vol] 3.7 10*3/uL 2.0-7.7 [facility] Neutrophils/100 WBC (Bld) 65.9 % 47-70 [facility] Potassium [Moles/Vol] 4.4 mmol/L 3.5-5.1 [facility] Protein [Mass/Vol] 6.9 g/dL 6.4-8.2 [facility] Sodium [Moles/Vol] 140 mmol/L 136-145 [facility] WBC (Bld) [#/Vol] 5.7 10*3/uL 4.4-11.0 [facility] Blood erythrocytes count (nu mber/volume)Ordered By: Samara Guzmán on 11-30-2022 RBC (Bld) [#/Vol] 4.11 10*6/uL 4.2-5.4 [facility] Blood hemoglobin measurement (mass/volume)Ordered By: Samara Guzmán on 11-30-2022 Hemoglobin (Bld) [Mass/Vol] 13.2 g/dL 12.0-15.0 [facility] Blood lymphocytes/100 leukoc ytesOrdered By: Samara Guzmán on 11-30-2022 Lymphocytes/100 WBC (Bld) 18.7 % 19-41 [facility] Blood monocytes/100 leukocyt esOrdered By: [facility] on 11-30-2022 Monocytes/100 WBC (Bld) 8.3 % 0-10 [facility] Blood platelet mean volumeOr dered By: Samarasalima Guzmán on 11-30-2022 Platelet mean volume (Bld) [Entitic vol] 9.1 fL 6.2-12.0 [facility] Determination of erythrocyte mean corpuscular volume (MCV)Ordered By: Samara Guzmán on 11-30-2022 MCV (RBC) [Entitic vol] 97.8 fL 81-99 [facility] Hematocrit Auto (Bld) [Volum e fraction]Ordered By: [facility] on 11-30-2022 Hematocrit (Bld) [Volume fraction] 40.2 % 37-47 [facility] Laboratory - Chemistry and C hemistry - challengeOrdered By: [facility] on 11-30-2022 ALP [Catalytic activity/Vol] 115 U/L 45-117 [facility] ALT [Catalytic activity/Vol] 22 U/L 13-56 [facility] CO2 [Moles/Vol] 31.0 mmol/L 21.0-32.0 [facility] Globulin (S) [Mass/Vol] 3.2 g/dL 2.2-4.2 [facility] Urea nitrogen/Creatinine [Mass ratio] 13.7 mg/mg 10-20 [facility] Laboratory - Hematology and Cell countsOrdered By: [facility] on 11-30-2022 Erythrocyte distribution width (RBC) [Entitic vol] 43.8 fL 35.1-43.9 [facility] Erythrocyte distribution width (RBC) [Ratio] 12.2 % 11.6-14.6 [facility] Immature granulocytes/100 WBC (Bld) 0.200 % 0.0-0.9 [facility] Comment on above: IG% - Immature Granu locytes (promyelocytes, myelocytes and metamyelocytes) > 1% indicates that a LEFT SHIFT is Present. MCH (RBC) [Entitic mass] 32.1 pg 27.0-32.0 [facility] Nucleated RBC/100 WBC (Bld) [Ratio] 0 % 0-5 [facility] MCHC Auto (RBC) [Mass/Vol]Or dered By: Saamra Guzmán on 11-30-2022 MCHC (RBC) [Mass/Vol] 32.8 g/dL 32-36 [facility] No Panel InformationOrdered By: Samara Guzmán on 11-30-2022 Estimated GFR (MDRD) Amer 66 mL/min >60 [facility] Comment on above: GFR Calc Estimated GFR (MDRD) Non-Af Amer 55 mL/min >60 [facility] Comment on above: Non- GFR Calc Platelets bldOrdered By: Kristen Guzmán on 11-30-2022 Platelets (Bld) [#/Vol] 208 10*3/uL 150-450 [facility] Serum or plasma albumin tayla urement (mass/volume)Ordered By: Samara Guzmán on 11-30-2022 Albumin [Mass/Vol] 3.7 g/dL 3.2-5.0 [facility] Serum or plasma albumin/glob ulin mass ratioOrdered By: Samara Guzmán on 11-30-2022 Albumin/Globulin [Mass ratio] 1.2 {ratio} 0.9-2.4 [facility] Serum or plasma calcium tayla urement (mass/volume)Ordered By: Samara Guzmán on 11-30-2022 Calcium [Mass/Vol] 9.0 mg/dL 8.5-10.1 [facility] Serum or plasma creatinine m easurement (mass/volume)Ordered By: Samara Guzmán on 11-30-2022 Creatinine [Mass/Vol] 1.02 mg/dL 0.55-1.02 [facility] Comment on above: The validity of the calculated GFR & GFRAA in patients over 70 years has not been determined. Clinical correlation is essential. Serum or plasma urea nitroge n measurement (mass/volume)Ordered By: Samara Guzmán on 11-30-2022 Urea nitrogen [Mass/Vol] 14 mg/dL 7-18 [facility] Thin prep Papanicolaou smear with manual screeningOrdered By: Samara Guzmán on 11-30-2022 Thin prep Papanicolaou smear with manual screening 22 U/L 15-37 [facility] Thin prep Papanicolaou smear with manual screening 1 5-15 [facility] Absolute lymphocyte countOrd ered By: Dr. Guzmán on 05-15-2022 Lymphocytes Auto (Unsp spec) [#/Vol] 1.17 10*3/uL 0.83-4.51 [facility] Basophil percentageOrdered B y: Dr. Guzmán on 05-15-2022 Basophils/100 WBC (Bld) 0.5 % 0-1 [facility] Bilirubin [Mass/Vol] 0.80 mg/dL 0.20-1.00 [facility] Comment on above: For patients on eltr ombopag therapy, use of Dimension Raymond TBIL is not recommended. Chloride [Moles/Vol] 107 mmol/L 98-107 [facility] Eosinophils/100 WBC (Bld) 4.0 % 0-5 [facility] Glucose [Mass/Vol] 93 mg/dL 74-106 [facility] Neutrophils (Bld) [#/Vol] 3.8 10*3/uL 2.0-7.7 [facility] Neutrophils/100 WBC (Bld) 66.1 % 47-70 [facility] Potassium [Moles/Vol] 4.1 mmol/L 3.5-5.1 [facility] Protein [Mass/Vol] 7.2 g/dL 6.4-8.2 [facility] Sodium [Moles/Vol] 142 mmol/L 136-145 [facility] WBC (Bld) [#/Vol] 5.7 10*3/uL 4.4-11.0 [facility] Blood erythrocytes count (nu mber/volume)Ordered By: Dr. Guzmán on 05-15-2022 RBC (Bld) [#/Vol] 4.05 10*6/uL 4.2-5.4 [facility] Blood hemoglobin measurement (mass/volume)Ordered By: Dr. Guzmán on 05-15-2022 Hemoglobin (Bld) [Mass/Vol] 13.0 g/dL 12.0-15.0 [facility] Blood lymphocytes/100 leukoc ytesOrdered By: Dr. Guzmán on 05-15-2022 Lymphocytes/100 WBC (Bld) 20.6 % 19-41 [facility] Blood monocytes/100 leukocyt esOrdered By: Dr. Guzmán on 05-15-2022 Monocytes/100 WBC (Bld) 8.6 % 0-10 [facility] Blood platelet mean volumeOr dered By: Dr. Guzmán on 05-15-2022 Platelet mean volume (Bld) [Entitic vol] 9.7 fL 6.2-12.0 [facility] Determination of erythrocyte mean corpuscular volume (MCV)Ordered By: Dr. Guzmán on 05-15-2022 MCV (RBC) [Entitic vol] 98.8 fL 81-99 [facility] Hematocrit Auto (Bld) [Volum e fraction]Ordered By: Dr. Guzmán on 05-15-2022 Hematocrit (Bld) [Volume fraction] 40.0 % 37-47 [facility] Laboratory - Chemistry and C hemistry - challengeOrdered By: Dr. Guzmán on 05-15-2022 ALP [Catalytic activity/Vol] 66 U/L 45-117 [facility] ALT [Catalytic activity/Vol] 22 U/L 13-56 [facility] CO2 [Moles/Vol] 30.0 mmol/L 21.0-32.0 [facility] Globulin (S) [Mass/Vol] 3.3 g/dL 2.2-4.2 [facility] Urea nitrogen/Creatinine [Mass ratio] 11.4 mg/mg 10-20 [facility] Laboratory - Hematology and Cell countsOrdered By: Dr. Guzmán on 05-15-2022 Erythrocyte distribution width (RBC) [Entitic vol] 45.9 fL 35.1-43.9 [facility] Erythrocyte distribution width (RBC) [Ratio] 12.6 % 11.6-14.6 [facility] Immature granulocytes/100 WBC (Bld) 0.200 % 0.0-0.9 [facility] Comment on above: IG% - Immature Granu locytes (promyelocytes, myelocytes and metamyelocytes) > 1% indicates that a LEFT SHIFT is Present. MCH (RBC) [Entitic mass] 32.1 pg 27.0-32.0 [facility] Nucleated RBC/100 WBC (Bld) [Ratio] 0 % 0-5 [facility] MCHC Auto (RBC) [Mass/Vol]Or dered By: Dr. Guzmán on 05-15-2022 MCHC (RBC) [Mass/Vol] 32.5 g/dL 32-36 [facility] No Panel InformationOrdered By: Dr. Guzmán on 05-15-2022 Estimated GFR (MDRD) Amer 64 mL/min >60 [facility] Comment on above: GFR Calc Estimated GFR (MDRD) Non-Af Amer 53 mL/min >60 [facility] Comment on above: Non- GFR Calc Platelets bldOrdered By: Dr. Guzmán on 05-15-2022 Platelets (Bld) [#/Vol] 205 10*3/uL 150-450 [facility] Serum or plasma albumin tayla urement (mass/volume)Ordered By: Dr. Guzmán on 05-15-2022 Albumin [Mass/Vol] 3.9 g/dL 3.2-5.0 [facility] Serum or plasma albumin/glob ulin mass ratioOrdered By: Dr. Guzmán on 05-15-2022 Albumin/Globulin [Mass ratio] 1.2 {ratio} 0.9-2.4 [facility] Serum or plasma calcium tayla urement (mass/volume)Ordered By: Dr. Guzmán on 05-15-2022 Calcium [Mass/Vol] 9.6 mg/dL 8.5-10.1 [facility] Serum or plasma creatinine m easurement (mass/volume)Ordered By: Dr. Guzmán on 05-15-2022 Creatinine [Mass/Vol] 1.05 mg/dL 0.55-1.02 [facility] Comment on above: The validity of the calculated GFR & GFRAA in patients over 70 years has not been determined. Clinical correlation is essential. Serum or plasma urea nitroge n measurement (mass/volume)Ordered By: Dr. Guzmán on 05-15-2022 Urea nitrogen [Mass/Vol] 12 mg/dL 7-18 [facility] Thin prep Papanicolaou smear with manual screeningOrdered By: Dr. Guzmán on 05-15-2022 Thin prep Papanicolaou smear with manual screening 22 U/L 15-37 [facility] Thin prep Papanicolaou smear with manual screening 5 5-15 [facility] Ova and parasitesOrdered By: Valdemar Sterling on 05-02-2022 Ova and parasites identified LM Nom (Unsp spec) [facility] Absolute lymphocyte countOrd ered By: Dr. Espinal on 04-25-2022 Lymphocytes Auto (Unsp spec) [#/Vol] 1.12 10*3/uL 0.83-4.51 [facility] Basophil percentageOrdered B y: Dr. Espinal on 04-25-2022 Basophils/100 WBC (Bld) 0.6 % 0-1 [facility] Chloride [Moles/Vol] 110 mmol/L 98-107 [facility] Eosinophils/100 WBC (Bld) 3.3 % 0-5 [facility] Glucose [Mass/Vol] 101 mg/dL 74-106 [facility] Comment on above: Fasting Glucose resu lt from 100 to 125 mg/dL suggests IMPAIRED HOMEOSTASIS per A.D.A. criteria. Neutrophils (Bld) [#/Vol] 4.8 10*3/uL 2.0-7.7 [facility] Neutrophils/100 WBC (Bld) 69.2 % 47-70 [facility] Potassium [Moles/Vol] 3.7 mmol/L 3.5-5.1 [facility] Sodium [Moles/Vol] 141 mmol/L 136-145 [facility] WBC (Bld) [#/Vol] 6.9 10*3/uL 4.4-11.0 [facility] Blood erythrocytes count (nu mber/volume)Ordered By: Dr. Espinal on 04-25-2022 RBC (Bld) [#/Vol] 3.81 10*6/uL 4.2-5.4 [facility] Blood hemoglobin measurement (mass/volume)Ordered By: Dr. Espinal on 04-25-2022 Hemoglobin (Bld) [Mass/Vol] 12.1 g/dL 12.0-15.0 [facility] Blood lymphocytes/100 leukoc ytesOrdered By: Dr. Espinal on 04-25-2022 Lymphocytes/100 WBC (Bld) 16.2 % 19-41 [facility] Blood monocytes/100 leukocyt esOrdered By: Dr. Espinal on 04-25-2022 Monocytes/100 WBC (Bld) 10.3 % 0-10 [facility] Blood platelet mean volumeOr dered By: Dr. Espinal on 04-25-2022 Platelet mean volume (Bld) [Entitic vol] 9.3 fL 6.2-12.0 [facility] Clostridium difficile detect ion by polymerase chain reactionOrdered By: Valdemar Sterling on 04-25-2022 C. difficile DNA JONI+probe Ql (Unsp spec) [facility] Determination of erythrocyte mean corpuscular volume (MCV)Ordered By: Dr. Espinal on 04-25-2022 MCV (RBC) [Entitic vol] 96.3 fL 81-99 [facility] EP PanelOrdered By: Valdemar Sterling on 04-25-2022 Gastrointestinal pathogens panel JONI+probe (Stl) [facility] Hematocrit Auto (Bld) [Volum e fraction]Ordered By: Dr. Espinal on 04-25-2022 Hematocrit (Bld) [Volume fraction] 36.7 % 37-47 [facility] Laboratory - Chemistry and C hemistry - challengeOrdered By: Dr. Espinal on 04-25-2022 CO2 [Moles/Vol] 27.0 mmol/L 21.0-32.0 [facility] Urea nitrogen/Creatinine [Mass ratio] 11.4 mg/mg 10-20 [facility] Laboratory - Hematology and Cell countsOrdered By: Dr. Espinal on 04-25-2022 Erythrocyte distribution width (RBC) [Entitic vol] 41.6 fL 35.1-43.9 [facility] Erythrocyte distribution width (RBC) [Ratio] 11.9 % 11.6-14.6 [facility] Immature granulocytes/100 WBC (Bld) 0.400 % 0.0-0.9 [facility] Comment on above: IG% - Immature Granu locytes (promyelocytes, myelocytes and metamyelocytes) > 1% indicates that a LEFT SHIFT is Present. MCH (RBC) [Entitic mass] 31.8 pg 27.0-32.0 [facility] Nucleated RBC/100 WBC (Bld) [Ratio] 0 % 0-5 [facility] MCHC Auto (RBC) [Mass/Vol]Or dered By: Dr. Espinal on 04-25-2022 MCHC (RBC) [Mass/Vol] 33.0 g/dL 32-36 [facility] No Panel InformationOrdered By: Dr. Espinal on 04-25-2022 Estimated Creatinine Clearance Calc 29.65 ml/min [facility] Estimated GFR (MDRD) Amer 70 mL/min >60 [facility] Comment on above: GFR Calc Estimated GFR (MDRD) Non-Af Amer 58 mL/min >60 [facility] Comment on above: Non- GFR Calc Platelets bldOrdered By: Dr. Espinal on 04-25-2022 Platelets (Bld) [#/Vol] 227 10*3/uL 150-450 [facility] Serum or plasma calcium tayla urement (mass/volume)Ordered By: Dr. Espinal on 04-25-2022 Calcium [Mass/Vol] 9.0 mg/dL 8.5-10.1 [facility] Serum or plasma creatinine m easurement (mass/volume)Ordered By: Dr. Espinal on 04-25-2022 Creatinine [Mass/Vol] 0.97 mg/dL 0.55-1.02 [facility] Comment on above: The validity of the calculated GFR & GFRAA in patients over 70 years has not been determined. Clinical correlation is essential. Serum or plasma urea nitroge n measurement (mass/volume)Ordered By: Dr. Espinal on 04-25-2022 Urea nitrogen [Mass/Vol] 11 mg/dL 7-18 [facility] Stool lactoferrin detection by immunoassayOrdered By: Valdemar Sterling on 04-25-2022 Lactoferrin IA Ql (Stl) [facility] Thin prep Papanicolaou smear with manual screeningOrdered By: Dr. Espinal on 04-25-2022 Thin prep Papanicolaou smear with manual screening 4 5-15 [facility] Basophil percentageOrdered B y: Dr. Powell on 04-24-2022 Bilirubin [Mass/Vol] 0.40 mg/dL 0.20-1.00 [facility] Comment on above: For patients on eltr ombopag therapy, use of Dimension Raymond TBIL is not recommended. Protein [Mass/Vol] 6.7 g/dL 6.4-8.2 [facility] Direct bilirubinOrdered By: Dr. Powell on 04-24-2022 Bilirubin.direct [Mass/Vol] 0.12 mg/dL 0.00-0.30 [facility] INR in Blood by Coagulation assayOrdered By: Dr. Powell on 04-24-2022 INR Coag (Bld) [Relative time] 1.2 {INR} [facility] Laboratory - Chemistry and C hemistry - challengeOrdered By: Dr. Powell on 04-24-2022 ALP [Catalytic activity/Vol] 61 U/L 45-117 [facility] ALT [Catalytic activity/Vol] 19 U/L 13-56 [facility] Globulin (S) [Mass/Vol] 3.2 g/dL 2.2-4.2 [facility] Laboratory - Chemistry and C hemistry - challengeOrdered By: Dr. Espinal on 04-24-2022 Magnesium [Mass/Vol] 2.4 mg/dL 1.6-2.6 [facility] Comment on above: Slight Hemolysis, Re sult may be falsely increased. Laboratory - CoagulationOrde red By: Dr. Powell on 04-24-2022 aPTT Coag (Bld) [Time] 28.7 s 24.1-36.2 [facility] PT Coag (PPP) [Time] 14.5 s 11.7-14.9 [facility] Serum or plasma albumin tayla urement (mass/volume)Ordered By: Dr. Powell on 04-24-2022 Albumin [Mass/Vol] 3.5 g/dL 3.2-5.0 [facility] Thin prep Papanicolaou smear with manual screeningOrdered By: Dr. Powell on 04-24-2022 Thin prep Papanicolaou smear with manual screening 24 U/L 15-37 [facility] Comment on above: Slight Hemolysis, Re sult may be falsely increased. MRI BRAIN WO IVCONon 023 [facility] Absolute lymphocyte countOrd ered By: Dr. Dubon on 03-09-2022 Lymphocytes Auto (Unsp spec) [#/Vol] 0.99 10*3/uL 0.83-4.51 [facility] Basophil percentageOrdered B y: Dr. Dubon on 03-09-2022 Basophils/100 WBC (Bld) 0.3 % 0-1 [facility] Chloride [Moles/Vol] 106 mmol/L 98-107 [facility] Eosinophils/100 WBC (Bld) 2.1 % 0-5 [facility] Glucose [Mass/Vol] 181 mg/dL 74-106 [facility] Comment on above: Fasting Glucose resu lt greater than or equal to 126 mg/dL suggests DIABETES MELLITUS per A.D.A. criteria. Neutrophils (Bld) [#/Vol] 6.1 10*3/uL 2.0-7.7 [facility] Neutrophils/100 WBC (Bld) 78.5 % 47-70 [facility] Potassium [Moles/Vol] 3.6 mmol/L 3.5-5.1 [facility] Sodium [Moles/Vol] 140 mmol/L 136-145 [facility] WBC (Bld) [#/Vol] 7.8 10*3/uL 4.4-11.0 [facility] Blood erythrocytes count (nu mber/volume)Ordered By: Dr. Dubon on 03-09-2022 RBC (Bld) [#/Vol] 3.98 10*6/uL 4.2-5.4 [facility] Blood hemoglobin measurement (mass/volume)Ordered By: Dr. Dubon on 03-09-2022 Hemoglobin (Bld) [Mass/Vol] 12.7 g/dL 12.0-15.0 [facility] Blood lymphocytes/100 leukoc ytesOrdered By: Dr. Dubon on 03-09-2022 Lymphocytes/100 WBC (Bld) 12.7 % 19-41 [facility] Blood monocytes/100 leukocyt esOrdered By: Dr. Dubon on 03-09-2022 Monocytes/100 WBC (Bld) 5.6 % 0-10 [facility] Blood platelet mean volumeOr dered By: Dr. Dubon on 03-09-2022 Platelet mean volume (Bld) [Entitic vol] 9.0 fL 6.2-12.0 [facility] Determination of erythrocyte mean corpuscular volume (MCV)Ordered By: Dr. Dubon on 03-09-2022 MCV (RBC) [Entitic vol] 94.7 fL 81-99 [facility] Hematocrit Auto (Bld) [Volum e fraction]Ordered By: Dr. Dubon on 03-09-2022 Hematocrit (Bld) [Volume fraction] 37.7 % 37-47 [facility] Laboratory - Chemistry and C hemistry - challengeOrdered By: Dr. Dubon on 03-09-2022 CO2 [Moles/Vol] 29.0 mmol/L 21.0-32.0 [facility] Urea nitrogen/Creatinine [Mass ratio] 16.4 mg/mg 10-20 [facility] Laboratory - Hematology and Cell countsOrdered By: Dr. Dubon on 03-09-2022 Erythrocyte distribution width (RBC) [Entitic vol] 41.6 fL 35.1-43.9 [facility] Erythrocyte distribution width (RBC) [Ratio] 11.9 % 11.6-14.6 [facility] Immature granulocytes/100 WBC (Bld) 0.800 % 0.0-0.9 [facility] Comment on above: IG% - Immature Granu locytes (promyelocytes, myelocytes and metamyelocytes) > 1% indicates that a LEFT SHIFT is Present. MCH (RBC) [Entitic mass] 31.9 pg 27.0-32.0 [facility] Nucleated RBC/100 WBC (Bld) [Ratio] 0 % 0-5 [facility] MCHC Auto (RBC) [Mass/Vol]Or dered By: Dr. Dubon on 03-09-2022 MCHC (RBC) [Mass/Vol] 33.7 g/dL 32-36 [facility] No Panel InformationOrdered By: Dr. Dubon on 03-09-2022 Estimated Creatinine Clearance Calc 27.95 ml/min [facility] Estimated GFR (MDRD) Amer 61 mL/min >60 [facility] Comment on above: GFR Calc Estimated GFR (MDRD) Non-Af Amer 50 mL/min >60 [facility] Comment on above: Non- GFR Calc Platelets bldOrdered By: Dr. Dubon on 03-09-2022 Platelets (Bld) [#/Vol] 195 10*3/uL 150-450 [facility] Serum or plasma calcium tayla urement (mass/volume)Ordered By: Dr. Dubon on 03-09-2022 Calcium [Mass/Vol] 8.6 mg/dL 8.5-10.1 [facility] Serum or plasma creatinine m easurement (mass/volume)Ordered By: Dr. Dubon on 03-09-2022 Creatinine [Mass/Vol] 1.10 mg/dL 0.55-1.02 [facility] Comment on above: The validity of the calculated GFR & GFRAA in patients over 70 years has not been determined. Clinical correlation is essential. Serum or plasma urea nitroge n measurement (mass/volume)Ordered By: Dr. Dubon on 03-09-2022 Urea nitrogen [Mass/Vol] 18 mg/dL 7-18 [facility] Thin prep Papanicolaou smear with manual screeningOrdered By: Dr. Dubon on 03-09-2022 Thin prep Papanicolaou smear with manual screening 5 5-15 [facility] Absolute lymphocyte counton 12-24-2021 Lymphocytes Auto (Unsp spec) [#/Vol] 1.08 10*3/uL 0.83-4.51 [facility] Work Phone: Basophil percentageon 2021 Basophils/100 WBC (Bld) 0.6 % 0-1 [facility] Work Phone: Bilirubin [Mass/Vol] 0.60 mg/dL 0.20-1.00 [facility] Work Phone: Comment on above: For patients on eltr ombopag therapy, use of Dimension Raymond TBIL is not recommended. Chloride [Moles/Vol] 104 mmol/L 98-107 [facility] Work Phone: Eosinophils/100 WBC (Bld) 3.6 % 0-5 [facility] Work Phone: Glucose [Mass/Vol] 123 mg/dL 74-106 [facility] Work Phone: Comment on above: Fasting Glucose resu lt from 100 to 125 mg/dL suggests IMPAIRED HOMEOSTASIS per A.D.A. criteria. Neutrophils (Bld) [#/Vol] 3.5 10*3/uL 2.0-7.7 [facility] Work Phone: Neutrophils/100 WBC (Bld) 65.7 % 47-70 [facility] Work Phone: Potassium [Moles/Vol] 4.1 mmol/L 3.5-5.1 [facility] Work Phone: Protein [Mass/Vol] 6.8 g/dL 6.4-8.2 [facility] Work Phone: Sodium [Moles/Vol] 140 mmol/L 136-145 [facility] Work Phone: WBC (Bld) [#/Vol] 5.3 10*3/uL 4.4-11.0 [facility] Work Phone: Blood erythrocytes count (nu mber/volume)on 12-24-2021 RBC (Bld) [#/Vol] 4.08 10*6/uL 4.2-5.4 [facility] Work Phone: Blood hemoglobin measurement (mass/volume)on 12-24-2021 Hemoglobin (Bld) [Mass/Vol] 13.3 g/dL 12.0-15.0 [facility] Work Phone: Blood lymphocytes/100 leukoc yteson 12-24-2021 Lymphocytes/100 WBC (Bld) 20.6 % 19-41 [facility] Work Phone: [phone] Blood monocytes/100 leukocyt eson 12-24-2021 Monocytes/100 WBC (Bld) 9.3 % 0-10 [facility] Work Phone: Blood platelet mean volumeon 12-24-2021 Platelet mean volume (Bld) [Entitic vol] 10.2 fL 6.2-12.0 [facility] Work Phone: Determination of erythrocyte mean corpuscular volume (MCV)on 12-24-2021 MCV (RBC) [Entitic vol] 97.1 fL 81-99 [facility] Work Phone: Hematocrit Auto (Bld) [Volum e fraction]on 12-24-2021 Hematocrit (Bld) [Volume fraction] 39.6 % 37-47 [facility] Work Phone: Laboratory - Chemistry and C hemistry - challengeon 12-24-2021 ALP [Catalytic activity/Vol] 64 U/L 45-117 [facility] Work Phone: ALT [Catalytic activity/Vol] 22 U/L 13-56 [facility] Work Phone: CO2 [Moles/Vol] 29.0 mmol/L 21.0-32.0 [facility] Work Phone: Globulin (S) [Mass/Vol] 3.2 g/dL 2.2-4.2 [facility] Work Phone: Urea nitrogen/Creatinine [Mass ratio] 9.6 mg/mg 10-20 [facility] Work Phone: Laboratory - Hematology and Cell countson 12-24-2021 Erythrocyte distribution width (RBC) [Entitic vol] 43.5 fL 35.1-43.9 [facility] Work Phone: Erythrocyte distribution width (RBC) [Ratio] 12.2 % 11.6-14.6 [facility] Work Phone: Immature granulocytes/100 WBC (Bld) 0.200 % 0.0-0.9 [facility] Work Phone: Comment on above: IG% - Immature Granu locytes (promyelocytes, myelocytes and metamyelocytes) > 1% indicates that a LEFT SHIFT is Present. MCH (RBC) [Entitic mass] 32.6 pg 27.0-32.0 [facility] Work Phone: Nucleated RBC/100 WBC (Bld) [Ratio] 0 % 0-5 [facility] Work Phone: MCHC Auto (RBC) [Mass/Vol]on 12-24-2021 MCHC (RBC) [Mass/Vol] 33.6 g/dL 32-36 [facility] Work Phone: No Panel Informationon 12-24 Estimated GFR (MDRD) Amer 58 mL/min >60 [facility] Work Phone: Comment on above: GFR Calc Estimated GFR (MDRD) Non-Af Amer 48 mL/min >60 [facility] Work Phone: Comment on above: Non- GFR Calc Platelets bldon 12-24-2021 Platelets (Bld) [#/Vol] 186 10*3/uL 150-450 [facility] Work Phone: Serum or plasma albumin tayla urement (mass/volume)on 12-24-2021 Albumin [Mass/Vol] 3.6 g/dL 3.2-5.0 [facility] Work Phone: Serum or plasma albumin/glob ulin mass ratioon 12-24-2021 Albumin/Globulin [Mass ratio] 1.1 {ratio} 0.9-2.4 [facility] Work Phone: Serum or plasma calcium tayla urement (mass/volume)on 12-24-2021 Calcium [Mass/Vol] 9.8 mg/dL 8.5-10.1 [facility] Work Phone: Serum or plasma creatinine m easurement (mass/volume)on 12-24-2021 Creatinine [Mass/Vol] 1.15 mg/dL 0.55-1.02 [facility] Work Phone: Comment on above: The validity of the calculated GFR & GFRAA in patients over 70 years has not been determined. Clinical correlation is essential. Serum or plasma urea nitroge n measurement (mass/volume)on 12-24-2021 Urea nitrogen [Mass/Vol] 11 mg/dL 7-18 [facility] Work Phone: Thin prep Papanicolaou smear with manual screeningon 12-24-2021 Thin prep Papanicolaou smear with manual screening 20 U/L 15-37 [facility] Work Phone: Thin prep Papanicolaou smear with manual screening 7 5-15 [facility] Work Phone: Absolute lymphocyte counton 06-25-2021 Lymphocytes Auto (Unsp spec) [#/Vol] 1.11 10*3/uL 0.83-4.51 [facility] Work Phone: Basophil percentageon 2021 Basophils/100 WBC (Bld) 0.8 % 0-1 [facility] Work Phone: Bilirubin [Mass/Vol] 0.60 mg/dL 0.20-1.00 [facility] Work Phone: Comment on above: For patients on eltr ombopag therapy, use of Dimension Raymond TBIL is not recommended. Chloride [Moles/Vol] 109 mmol/L 98-107 [facility] Work Phone: Eosinophils/100 WBC (Bld) 3.1 % 0-5 [facility] Work Phone: Glucose [Mass/Vol] 83 mg/dL 74-106 [facility] Work Phone: Neutrophils (Bld) [#/Vol] 3.4 10*3/uL 2.0-7.7 [facility] Work Phone: [phone] Neutrophils/100 WBC (Bld) 64.4 % 47-70 [facility] Work Phone: [phone] Potassium [Moles/Vol] 3.9 mmol/L 3.5-5.1 [facility] Work Phone: [phone] Protein [Mass/Vol] 6.8 g/dL 6.4-8.2 [facility] Work Phone: [phone] Sodium [Moles/Vol] 142 mmol/L 136-145 [facility] Work Phone: WBC (Bld) [#/Vol] 5.2 10*3/uL 4.4-11.0 [facility] Work Phone: Blood erythrocytes count (nu mber/volume)on 06-25-2021 RBC (Bld) [#/Vol] 4.01 10*6/uL 4.2-5.4 [facility]: Blood hemoglobin measurement (mass/volume)on 06-25-2021 Hemoglobin (Bld) [Mass/Vol] 12.8 g/dL 12.0-15.0 [facility] Work Phone: Blood lymphocytes/100 leukoc yteson 06-25-2021 Lymphocytes/100 WBC (Bld) 21.2 % 19-41 [facility] Work Phone: Blood monocytes/100 leukocyt eson 06-25-2021 Monocytes/100 WBC (Bld) 10.3 % 0-10 [facility] Work Phone: Blood platelet mean volumeon 06-25-2021 Platelet mean volume (Bld) [Entitic vol] 10.0 fL 6.2-12.0 [facility] Work Phone: Determination of erythrocyte mean corpuscular volume (MCV)on 06-25-2021 MCV (RBC) [Entitic vol] 97.0 fL 81-99 [facility] Work Phone: Hematocrit Auto (Bld) [Volum e fraction]on 06-25-2021 Hematocrit (Bld) [Volume fraction] 38.9 % 37-47 [facility] Work Phone: Laboratory - Chemistry and C hemistry - challengeon 06-25-2021 ALP [Catalytic activity/Vol] 60 U/L 45-117 [facility] Work Phone: ALT [Catalytic activity/Vol] 21 U/L 13-56 [facility] Work Phone: [phone] CO2 [Moles/Vol] 28.0 mmol/L 21.0-32.0 [facility] Work Phone: Globulin (S) [Mass/Vol] 3.2 g/dL 2.2-4.2 [facility] Work Phone: Urea nitrogen/Creatinine [Mass ratio] 13.6 mg/mg 10-20 [facility] Work Phone: Laboratory - Hematology and Cell countson 06-25-2021 Erythrocyte distribution width (RBC) [Entitic vol] 44.0 fL 35.1-43.9 [facility] Work Phone: Erythrocyte distribution width (RBC) [Ratio] 12.2 % 11.6-14.6 [facility] Work Phone: Immature granulocytes/100 WBC (Bld) 0.200 % 0.0-0.9 [facility] Work Phone: Comment on above: IG% - Immature Granu locytes (promyelocytes, myelocytes and metamyelocytes) > 1% indicates that a LEFT SHIFT is Present. MCH (RBC) [Entitic mass] 31.9 pg 27.0-32.0 [facility] Work Phone: Nucleated RBC/100 WBC (Bld) [Ratio] 0 % 0-5 [facility] Work Phone: MCHC Auto (RBC) [Mass/Vol]on 06-25-2021 MCHC (RBC) [Mass/Vol] 32.9 g/dL 32-36 [facility] Work Phone: No Panel Informationon 06-25 Estimated GFR (MDRD) Amer 66 mL/min >60 [facility] Work Phone: Comment on above: GFR Calc Estimated GFR (MDRD) Non-Af Amer 54 mL/min >60 [facility] Work Phone: Comment on above: Non- GFR Calc Platelets bldon 06-25-2021 Platelets (Bld) [#/Vol] 209 10*3/uL 150-450 [facility] Work Phone: Serum or plasma albumin tayla urement (mass/volume)on 06-25-2021 Albumin [Mass/Vol] 3.6 g/dL 3.2-5.0 [facility] Work Phone: Serum or plasma albumin/glob ulin mass ratioon 06-25-2021 Albumin/Globulin [Mass ratio] 1.1 {ratio} 0.9-2.4 [facility] Work Phone: Serum or plasma calcium tayla urement (mass/volume)on 06-25-2021 Calcium [Mass/Vol] 9.0 mg/dL 8.5-10.1 [facility] Work Phone: Serum or plasma creatinine m easurement (mass/volume)on 06-25-2021 Creatinine [Mass/Vol] 1.03 mg/dL 0.55-1.02 [facility] Work Phone: Comment on above: The validity of the calculated GFR & GFRAA in patients over 70 years has not been determined. Clinical correlation is essential. Serum or plasma urea nitroge n measurement (mass/volume)on 06-25-2021 Urea nitrogen [Mass/Vol] 14 mg/dL 7-18 [facility] Work Phone: Thin prep Papanicolaou smear with manual screeningon 06-25-2021 Thin prep Papanicolaou smear with manual screening 20 U/L 15-37 [facility] Work Phone: Thin prep Papanicolaou smear with manual screening 5 5-15 [facility] Work Phone[facility] ----GUICHO MARTINEZ ([id number]) 1935 F TDate Time Provider Vezbuzfgrb82/13/17 HUE KHAN (HERB) SELAME During your visit today, we recorded the following information about you:Hue Khan RN, RN 12/13/2016 2:15 PM SignedLeft message with patient regarding reminder for stress test tomorrow and giveninstructionsAllergies As of Date: 12/13/2016 Noted Allergy ReactionASA (SALICYLATES) 01/08/2005 14 - Other: See Comments Comments: Hx of low plateletesIBUPROFEN 01/08/2005 4 - HivesPENICILLINS 01/08/2005 Comments: passed outDate Reviewed: 12/04/2016Reviewed by: Simone Trevino LPN - Fully AssessedReason for Visit: Reminder Call [[id number]]Prescriptions as of 12/13/2016 Sig: MAGNESIUM 200 MG TABLET Take 1 tablet by mouth once d* SIMVASTATIN 20 MG TABLET Take 0.5-1 tablets by mouth o* CALCIUM CARB-ERGOCALCIFEROL (* Take 1 tablet by mouth once d* LUMIGAN 0.03 % EYE DROPS one drop each eye nightly THERAPEUTIC MULTIVITAMIN TABL* Take one(1) tablet daily.Problem List As Of Date 12/13/2016 Noted Resolved GLAUCOMA NOS [H40.9] Hyperlipidemia [E78.5] [...] FOR*06/21/2015 More... Lactose intolerance [E73.9] INVALID FOR* Status:Closed by HUE KHAN on 12/13/16 [facility] Vital Signs Date Time Vital Sign Value Performing Clinician Facility 05-19-2024 16:25-0400 Body mass index (BMI) [Ratio] 16.41 kg/m2 Hue FULLER-C Work Phone: [facility] 05-19-2024 16:25-0400 Body weight 41.37 kg Hue FULLER-C Work Phone: [facility] 05-19-2024 16:25-0400 Diastolic blood pressure 68 mm[Hg] Hue FULLER-C Work Phone: [facility] 05-19-2024 16:25-0400 Heart rate 61 /min Hue FULLER-C Work Phone: [facility] 05-19-2024 16:25-0400 SaO2% (BldA) [Mass fraction] 97 % Hue FULLER-C Work Phone: [facility] 05-19-2024 16:25-0400 Systolic blood pressure 150 mm[Hg] Hue FULLER-C Work Phone: [facility] 04-23-2024 13:18-0500 Body mass index (BMI) [Ratio] 16.76 kg/m2 Carolyn FULLER-Cade Work Phone: [facility] 04-23-2024 13:18-0500 Body temperature 97.5 [degF] Carolyn FULLER-C Work Phone: [facility] 04-23-2024 13:18-0500 Body weight 42.24 kg Carolyn Asher PA-C Work Phone: [facility] 04-23-2024 13:18-0500 Diastolic blood pressure 70 mm[Hg] Carolyn Asher PA-C Work Phone: [facility] 04-23-2024 13:18-0500 Heart rate 62 /min Carolyn Asher PA-C Work Phone: [facility] 04-23-2024 13:18-0500 Respiratory rate 16 /min Carolyn Asher PA-C Work Phone: [facility] 04-23-2024 13:18-0500 SaO2% (BldA) [Mass fraction] 100 % Carolyn Asher PA-C Work Phone: [facility] 04-23-2024 13:18-0500 Systolic blood pressure 120 mm[Hg] Carolyn Asher PA-C Work Phone: [facility] 03-30-2024 09:43-0500 Body mass index (BMI) [Ratio] 16.96 kg/m2 Carolyn Asher PA-C Work Phone: [facility] 03-30-2024 09:43-0500 Body temperature 97.39 [degF] Carolyn Asher PA-C Work Phone: [facility] 03-30-2024 09:43-0500 Body weight 42.75 kg Carolyn Asher PA-C Work Phone: [facility] 03-30-2024 09:43-0500 Diastolic blood pressure 68 mm[Hg] Carolyn Asher PA-C Work Phone: [facility] 03-30-2024 09:43-0500 Heart rate 67 /min Carolyn Asher PA-C Work Phone: [facility] 03-30-2024 09:43-0500 Respiratory rate 16 /min Carolyn Asher PA-C Work Phone: [facility] 03-30-2024 09:43-0500 SaO2% (BldA) [Mass fraction] 99 % Carolyn Asher PA-C Work Phone: [facility] 03-30-2024 09:43-0500 Systolic blood pressure 137 mm[Hg] Carolyn Asher PA-C Work Phone: [facility] 03-04-2024 17:35-0500 Body mass index (BMI) [Ratio] 16.92 kg/m2 Fauzia Wagner TRA[employer] MASTER.[employer] Work Phone: [facility] 03-04-2024 17:35-0500 Body weight 42.64 kg Fauzia Wagner TRAIN MASTER.[employer] Work Phone: [facility] 03-04-2024 17:35-0500 Diastolic blood pressure 77 mm[Hg] Fauzia Wagner TRAIN MASTER.[employer] Work Phone: [facility] 03-04-2024 17:35-0500 Heart rate 79 /min Fauzia Wagner TRAIN MASTER.[employer] Work Phone: [facility] 03-04-2024 17:35-0500 Systolic blood pressure 146 mm[Hg] Fauzia Wagner TRAIN MASTER.[employer] Work Phone: [facility] 11-11-2023 15:37-0400 Body mass index (BMI) [Ratio] 16.67 kg/m2 Hue Queener PA-C Work Phone: [facility] 11-11-2023 15:37-0400 Body weight 42 kg Hue Vargheseer PA-C Work Phone: [facility] 11-11-2023 15:37-0400 Diastolic blood pressure 68 mm[Hg] Hue Vargheseer PA-C Work Phone: [facility] 11-11-2023 15:37-0400 Heart rate 68 /min Hue Queener PA-C Work Phone: [facility] 11-11-2023 15:37-0400 Respiratory rate 16 /min Hue Queener PA-C Work Phone: [facility] 11-11-2023 15:37-0400 SaO2% (BldA) [Mass fraction] 98 % Hue Torres PA-C Work Phone: [facility] 11-11-2023 15:37-0400 Systolic blood pressure 111 mm[Hg] Hue Torres PA-C Work Phone: [facility] 10-21-2023 13:09-0400 Body height 158.8 cm Bairon Torres MD Work Phone: [facility] 10-21-2023 13:09-0400 Body mass index (BMI) [Ratio] 16.38 kg/m2 Bairon Torres MD Work Phone: [facility] 10-21-2023 13:09-0400 Body weight 41.28 kg Bairon Torres MD Work Phone: [facility] 10-21-2023 13:09-0400 Diastolic blood pressure 72 mm[Hg] Bairon Torres MD Work Phone: [facility] 10-21-2023 13:09-0400 Heart rate 64 /min Bairon Torres MD Work Phone: [facility] 10-21-2023 13:09-0400 Respiratory rate 14 /min Baiorn Torres MD Work Phone: [facility] 10-21-2023 13:09-0400 Systolic blood pressure 128 mm[Hg] Bairon Torres MD Work Phone: [facility] 09-04-2022 17:05-0400 Body weight 43.55 kg Bairon Torres MD Work Phone: [facility] 09-04-2022 17:05-0400 Diastolic blood pressure 84 mm[Hg] Bairon Torres MD Work Phone: [facility] 09-04-2022 17:05-0400 Heart rate 74 /min Bairon Torres MD Work Phone: [facility] 09-04-2022 17:05-0400 Respiratory rate 16 /min Bairon Torres MD Work Phone: [facility] 09-04-2022 17:05-0400 Systolic blood pressure 138 mm[Hg] Bairon Torres MD Work Phone: [facility] 06-21-2022 15:43-0400 Body temperature 97 [degF] Josue Gomez Jr., MD Work Phone: [facility] 06-21-2022 15:43-0400 Body weight 43.55 kg Josue Gomez Jr., MD Work Phone: [facility] 06-21-2022 15:43-0400 Diastolic blood pressure 56 mm[Hg] Josue Gomez Jr., MD Work Phone: [facility] 06-21-2022 15:43-0400 Heart rate 74 /min Josue Gomez Jr., MD Work Phone: [facility] 06-21-2022 15:43-0400 Respiratory rate 16 /min Josue Gomez Jr., MD Work Phone: [facility] 06-21-2022 15:43-0400 SaO2% (BldA) [Mass fraction] 99 % Josue Gomez Jr., MD Work Phone: [facility] 06-21-2022 15:43-0400 Systolic blood pressure 129 mm[Hg] Josue Gomez Jr., MD Work Phone: [facility] 05-08-2022 12:55-0500 Body weight 44 kg Bairon Torres MD Work Phone: [facility] 05-08-2022 12:55-0500 Diastolic blood pressure 60 mm[Hg] Bairon Torres MD Work Phone: [facility] 05-08-2022 12:55-0500 Heart rate 80 /min Bairon Torres MD Work Phone: [facility] 05-08-2022 12:55-0500 Systolic blood pressure 124 mm[Hg] Bairon Torres MD Work Phone: [facility] 04-25-2022 14:42-0500 Body height 157.[address] Bairon Torres Work Phone: [facility] 04-25-2022 14:42-0500 Body weight 42.[address] Bairon Torres Work Phone: [facility] 04-25-2022 13:04-0500 Body temperature 97.7 [degF] Dr. Bairon Torres Work Phone: [facility] 04-25-2022 13:04-0500 Diastolic blood pressure 63 mm[Hg] Dr. Bairon Torres Work Phone: 3([phone] [place] [address] 04-25-2022 13:04-0500 Heart rate 75 /min Dr. Bairon Torres Work Phone: 7(905)[phone] [place] [address] 04-25-2022 13:04-0500 Respiratory rate 16 /min Dr. Bairon Torres Work Phone: 7(948)[phone] [place] [address] 04-25-2022 13:04-0500 SaO2% (BldA) [Mass fraction] 95 % Dr. Bairon Torres Work Phone: [facility] 04-25-2022 13:04-0500 Systolic blood pressure 136 mm[Hg] Dr. Bairon Torres Work Phone: [facility] 04-25-2022 09:51-0500 Inhaled oxygen flow rate 2 L/min Dr. Bairon Torres Work Phone: [facility] 04-25-2022 06:00-0500 Body mass index (BMI) [Ratio] 17.1 kg/m2 Dr. Bairon Torres Work Phone: [facility] 03-11-2022 04:15-0500 Diastolic blood pressure 53 mm[Hg] [facility] 03-11-2022 04:15-0500 Heart rate 76 /min [facility] 03-11-2022 04:15-0500 Respiratory rate 18 /min [facility] 03-11-2022 04:15-0500 SaO2% (BldA) [Mass fraction] 97 % [facility] 03-11-2022 04:15-0500 Systolic blood pressure 141 mm[Hg] [facility] 03-11-2022 01:53-0500 Body height 157.48 cm [facility] Work Phone: 03-11-2022 01:53-0500 Body mass index (BMI) [Ratio] 18.2 kg/m2 [facility] 03-11-2022 01:53-0500 Body temperature 97.6 [degF] [facility] 03-11-2022 01:53-0500 Body weight 45.2 kg [facility] 03-09-2022 03:26-0500 Body height 157.48 cm [facility] Work Phone: 03-09-2022 03:26-0500 Body mass index (BMI) [Ratio] 18.7 kg/m2 [facility] 03-09-2022 03:26-0500 Body temperature 98.3 [degF] [facility] 03-09-2022 03:26-0500 Body weight 46.5 kg [facility] 03-09-2022 03:26-0500 Diastolic blood pressure 57 mm[Hg] [facility] 03-09-2022 03:26-0500 Heart rate 69 /min [facility] 03-09-2022 03:26-0500 Respiratory rate 15 /min [facility] 03-09-2022 03:26-0500 SaO2% (BldA) [Mass fraction] 98 % [facility] 03-09-2022 03:26-0500 Systolic blood pressure 122 mm[Hg] [facility] 03-06-2022 18:34-0500 Body height 159.4 cm Bairon Torres MD Work Phone: [facility] 03-06-2022 18:34-0500 Body weight 44.91 kg Bairon Torres MD Work Phone: [facility] 03-06-2022 18:34-0500 Diastolic blood pressure 78 mm[Hg] Bairon Torres MD Work Phone: [facility] 03-06-2022 18:34-0500 Heart rate 84 /min Bairon Torres MD Work Phone: [facility] 03-06-2022 18:34-0500 Respiratory rate 16 /min Bairon Torres MD Work Phone: [facility] 03-06-2022 18:34-0500 Systolic blood pressure 140 mm[Hg] Bairon Torres MD Work Phone: [facility] 07-23-2021 08:47-0400 Body temperature 97 [degF] Louis Isaacs DO Work Phone: [facility] 07-23-2021 08:47-0400 Body weight 47.63 kg Louis Isaacs DO Work Phone: [facility] 07-23-2021 08:47-0400 Diastolic blood pressure 60 mm[Hg] Louis Isaacs DO Work Phone: [facility] 07-23-2021 08:47-0400 Heart rate 68 /min Louis Isaacs DO Work Phone: [facility] 07-23-2021 08:47-0400 Respiratory rate 16 /min Louis Isaacs DO Work Phone: [facility] 07-23-2021 08:47-0400 Systolic blood pressure 120 mm[Hg] Louis Isaacs DO Work Phone: [facility] 05-21-2021 14:33-0400 Body temperature 97.7 [degF] Angelica Praisler-Wood TRAIN MASTER.GLASS FURNACE TENDER Work Phone: [facility] 05-21-2021 14:33-0400 Body weight 48.9 kg Angelica Praisler-Wood TRAIN MASTER.GLASS FURNACE TENDER Work Phone: [facility] 05-21-2021 14:33-0400 Diastolic blood pressure 88 mm[Hg] Angelica Praisler-Wood TRAIN MASTER.GLASS FURNACE TENDER Work Phone: [facility] 05-21-2021 14:33-0400 Heart rate 73 /min Angelica Praisler-Wood TRAIN MASTER.GLASS FURNACE TENDER Work Phone: [facility] 05-21-2021 14:33-0400 Respiratory rate 18 /min Angelicalyndsey Lanier-Mj TRAIN MASTER.GLASS FURNACE TENDER Work Phone: [facility] 05-21-2021 14:33-0400 SaO2% (BldA) [Mass fraction] 99 % Angelicalyndsey Lanier-Wood TRAIN MASTER.GLASS FURNACE TENDER Work Phone: [facility] 05-21-2021 14:33-0400 Systolic blood pressure 130 mm[Hg] Angelica Lanier-Mj TRAIN MASTER.GLASS FURNACE TENDER Work Phone: [facility] 03-12-2021 15:14-0500 Body temperature 98.4 [degF] [facility] Work Phone: 03-12-2021 15:14-0500 Diastolic blood pressure 75 mm[Hg] [facility] Work Phone: 03-12-2021 15:14-0500 Heart rate 69 /min [facility] Work Phone: 03-12-2021 15:14-0500 Respiratory rate 16 /min [facility] Work Phone: 03-12-2021 15:14-0500 SaO2% (BldA) [Mass fraction] 98 % [facility] Work Phone: 03-12-2021 15:14-0500 Systolic blood pressure 133 mm[Hg] [facility] Work Phone: 03-12-2021 13:51-0500 Body height 162.56 cm [facility] Work Phone: 03-12-2021 13:51-0500 Body mass index (BMI) [Ratio] 17.6 kg/m2 [facility] Work Phone: 03-12-2021 13:51-0500 Body weight 46.72 kg [facility] Work Phone: Encounters Encounter Date Encounter Type Care Provider Facility Start: 08-28-2024 End: 08-30-2024 ambulatory Bairon Torres MD Work Phone: [facility] Comment on above: Mom Start: 08-23-2024 End: 08-23-2024 ambulatory Bairon Torres MD Work Phone: [facility] Comment on above: Update on mom Start: 08-19-2024 End: 08-20-2024 Follow-up encounter Bairon Torres MD Work Phone: [facility] Comment on above: Results Start: 08-03-2024 End: 08-05-2024 ambulatory Bairon Torres MD Work Phone: [facility] Comment on above: Probiotic Start: 07-06-2024 End: 07-07-2024 ambulatory Bairon Torres MD Work Phone: [facility] [place] Comment on above: Mom anxiety Start: 06-29-2024 End: 06-29-2024 ambulatory Toño Yeboah RN Work Phone: [employer]ist [employer] Comment on above: Primary Care Coordin ator- Other Start: 06-07-2024 End: 06-07-2024 Telephone encounter Bairon Torres MD Work Phone: [facility] Comment on above: Results Start: 05-19-2024 End: 05-19-2024 ambulatory HUE TORRES Facility:[facility] Start: 05-19-2024 End: 05-19-2024 Patient encounter procedure Hue Brian PA-C Work Phone: Neurology Comment on above: Dementia without beh avioral disturbance, psychotic disturbance, mood disturbance, or anxiety, unspecified dementia severity, unspecified dementia type (HCC) (Primary Dx) Start: 05-19-2024 End: 05-19-2024 ambulatory Valdemar Sterling [facility] Start: 05-08-2024 End: 05-08-2024 ambulatory BAIRON TORRES Facility:[facility] Start: 05-04-2024 End: 05-04-2024 ambulatory Bairon Torres MD Work Phone: [facility] [place] Comment on above: Mom's papers for the avenues Start: 05-04-2024 End: 05-04-2024 E-mail encounter from caregiver Bairon Torres MD Work Phone: [facility] Start: 04-23-2024 End: 04-23-2024 ambulatory CAROLYN ASHER Facility:[facility] Start: 04-23-2024 End: 04-23-2024 Patient encounter procedure Carolyn Asher PA-C Work Phone: [facility] [place] Comment on above: Mixed hyperlipidemia (Primary Dx); Stage 3a chronic kidney disease (HCC); Osteoporosis, unspecified osteoporosis type, unspecified pathological fracture presence; Dementia of the Alzheimer's type, with late onset, uncomplicated (HCC); Advance directive discussed with patient; Elevated blood sugar; Elevated TSH; Hydrocephalus in diseases classified elsewhere (HCC); Corns Start: 04-17-2024 End: 04-17-2024 ambulatory BAIRON TORRES Facility:[facility] Start: 03-30-2024 End: 03-30-2024 ambulatory CAROLYN ASHER Facility:[facility] Start: 03-30-2024 End: 03-30-2024 Office outpatient visit 40 minutes Carolyn Asher PA-C Work Phone: [facility] [place] Comment on above: Dementia of the Alzh eimer's type, with late onset, uncomplicated (HCC) (Primary Dx) Start: 03-29-2024 End: 03-29-2024 Telephone encounter Hue Torres PA-C Work Phone: [facility] Comment on above: Insurance Authorizat ion Start: 03-05-2024 End: 03-09-2024 Refill Hue Torres PA-C Work Phone: [facility] Comment on above: Refill Request Start: 03-04-2024 End: 03-04-2024 Patient encounter procedure Fauzia Wagner APRN.CNP Work Phone: [facility] [place] Comment on above: Facial laceration, s ubsequent encounter (Primary Dx); Visit for suture removal Start: 03-04-2024 End: 03-04-2024 ambulatory FAUZIA WAGNER Facility:[facility] Start: 02-27-2024 End: 02-27-2024 Emergency department patient visit Bairon Torres Facility:[facility] Start: 01-15-2024 End: 01-16-2024 Refill Bairon Torres MD Work Phone: [facility] Comment on above: Refill Request Start: 12-26-2023 End: 12-29-2023 ambulatory Hue Torres PA-C Work Phone: Neurology Comment on above: Anti-depressant Start: 12-24-2023 End: 12-24-2023 ambulatory Bairon Torres MD Work Phone: [facility] Comment on above: Anti-depressant Start: 12-07-2023 End: 12-08-2023 Refill Bairon Torres MD Work Phone: [facility] Comment on above: Refill Request Start: 11-11-2023 End: 11-11-2023 ambulatory BAIRON TORRES Facility:[facility] Start: 11-11-2023 End: 11-11-2023 Patient encounter procedure Hue Torres PA-C Work Phone: Neurology Comment on above: Dementia without beh avioral disturbance, psychotic disturbance, mood disturbance, or anxiety, unspecified dementia severity, unspecified dementia type (HCC) (Primary Dx) Start: 11-11-2023 End: 11-11-2023 ambulatory HUE SANTA CLARARAO Facility:[facility] Start: 10-22-2023 End: 10-22-2023 Telephone encounter Bairon Torres MD Work Phone: [facility] Comment on above: Results Start: 10-21-2023 End: 10-21-2023 ambulatory BAIRON TORRES Facility:[facility] Start: 10-21-2023 End: 10-21-2023 Patient encounter procedure Bairon Torres MD Work Phone: [facility] Comment on above: Encounter for Medica re annual wellness exam (Primary Dx); Mixed hyperlipidemia; Elevated blood sugar; Elevated TSH; Bilateral carotid artery stenosis; Stage 3a chronic kidney disease (HCC); Dementia of the Alzheimer's type, with late onset, uncomplicated (HCC); Polyarticular arthritis; Hydrocephalus in diseases classified elsewhere (HCC); Osteoporosis, unspecified osteoporosis type, unspecified pathological fracture presence; Corns; Advance directive discussed with patient; Medication management Start: 10-14-2023 Refill Hue Castro r PA-C Work Phone: Neurology Comment on above: Refill Request Start: 08-25-2023 ambulatory Bairon zazueta MD Work Phone: [facility] [place] Comment on above: Prescription for wal ker w/hand brake, built in seat and under seat storage Start: 08-11-2023 Refill Hue mcclain PA-C Work Phone: Neurology Comment on above: Refill Request Start: 07-13-2023 ambulatory Bairon zazueta MD Work Phone: [facility] [place] Comment on above: New prescription nee ded Start: 06-17-2023 ambulatory Bairon zazueta MD Work Phone: [facility] [place] Comment on above: Crestor new prescrip tion Start: 05-23-2023 Telephone encounter Bairon Torres MD Work Phone: [facility] [place] Comment on above: Results (Abnormal la bs - Dr. Guzmán's office. ) Start: 05-05-2023 ambulatory Hue Castro r PA-C Work Phone: Neurology Comment on above: Exelon Start: 02-05-2023 Refill Hue Castro r PA-C Work Phone: [facility] [place] Comment on above: Refill Request Start: 01-20-2023 Refill Bairon zazueta MD Work Phone: [facility] Comment on above: Refill Request Start: 01-15-2023 Telephone encounter Bairon Torres MD Work Phone: [facility] [place] Comment on above: Outside Imaging (Car otid US); Results Start: 01-15-2023 Non-patient / Non-visit Dr. Aj Torres Work Phone: [facility] Start: 01-15-2023 End: 01-15-[address] Bairon Torres Work Phone: [facility] Work Phone: Start: 01-15-2023 End: 01-15-[address] Bairon Torres Work Phone: [facility]-Cardiovascul [facility] Services Work Phone: Start: 01-07-2023 ambulatory Bairon zazueta MD Work Phone: [facility] Comment on above: Dr. Mason Start: 12-10-2022 ambulatory Bairon zazueta MD Work Phone: [facility] Comment on above: US Carotid Arteries [facility] Start: 11-30-2022 End: 11-30-[address] Bairon Torres Work Phone: [facility]-Laboratory Work Phone: Start: 09-04-2022 End: 09-04-2022 Patient encounter procedure Bairon Torres MD Work Phone: [facility] Comment on above: Encounter for Medica re annual wellness exam (Primary Dx); Mixed hyperlipidemia; Elevated blood sugar; Elevated TSH; Bilateral carotid artery stenosis; Stage 3a chronic kidney disease (HCC); Dementia of the Alzheimer's type, with late onset, uncomplicated (HCC); Glaucoma, unspecified glaucoma type, unspecified laterality; Hydrocephalus in diseases classified elsewhere (HCC) Start: 08-28-2022 Orders Only Slime gannon APRN.GLASS FURNACE TENDER Work Phone: Neurology Comment on above: Exelon refill Start: 08-27-2022 Refill Josue cunha MD Work Phone: Neurology Comment on above: Refill Request Start: 08-24-2022 Refill Bairon zazueta MD Work Phone: [facility] Comment on above: Refill Request Exelon refill Refill Request; Refi ll Request Start: 07-14-2022 Refill Bairon zazueta MD Work Phone: [facility] Comment on above: Refill Request Start: 06-28-2022 Telephone encounter Josue Gomez MD Work Phone: Neurology Comment on above: Medication Question Start: 06-25-2022 ambulatory Josue cunha MD Work Phone: Neurology Comment on above: Exelon Start: 06-21-2022 End: 06-21-2022 Patient encounter procedure Josue Gomez MD Work Phone: Neurology Comment on above: Dementia without beh avioral disturbance, psychotic disturbance, mood disturbance, or anxiety, unspecified dementia severity, unspecified dementia type (HCC) (Primary Dx) Start: 05-18-2022 Chart abstracting Bairon mobley MD Work Phone: [facility] Comment on above: Abstract Start: 05-15-2022 End: 05-15-[address] Bairon Torres Work Phone: [facility] Work Phone: Start: 05-15-2022 End: 05-15-[address] Bairon Torres Work Phone: [facility] Start: 05-08-2022 End: 05-08-2022 Patient encounter procedure Bairon Torres MD Work Phone: [facility] Comment on above: Dementia of the Alzh eimer's type, with late onset, uncomplicated (HCC) (Primary Dx) Start: 04-25-2022 Chart abstracting Bairon mobley MD Work Phone: [facility] [place] Comment on above: ER F/U (ER [facility] ) Start: 04-25-2022 Non-patient / Non-visit Dr. Aj Torres Work Phone: [facility] Start: 04-25-2022 Non-patient / Non-visit Dr. Aj Torres Work Phone: [facility] Start: 04-25-2022 End: 04-25-2022 Non-patient / Non-visit Dr. Bairon Torres Work Phone: [facility] Start: 04-24-2022 Non-patient / Non-visit Dr. Aj Torres Work Phone: [facility] Start: 04-24-2022 Non-patient / Non-visit Dr. Aj Torres Work Phone: [facility] Start: 04-24-2022 End: 04-25-2022 Evaluation and management of inpatient Dr. Bairon Torres Work Phone: [facility]-Progressive Care Unit Start: 04-24-2022 Chart abstracting Bairon mobley MD Work Phone: [facility] Comment on above: ER F/U (ER - [facility] ) Start: 04-12-2022 Telephone encounter Bairon Torres MD Work Phone: [facility] Comment on above: Results Start: 04-07-2022 Refill Bairon zazueta MD Work Phone: [facility] Comment on above: Refill Request Start: 04-01-2022 End: 04-01-2022 Subsequent hospital visit by physician [employer] [employer] [facility] Wstr (I-Stat/1.5t) Work Phone: Radiology Comment on above: Memory deficit [R41. 3] Start: 03-28-2022 Telephone encounter Bairon Torres MD Work Phone: [facility] Comment on above: Medication Request Start: 03-11-2022 End: 03-11-2022 Emergency department patient visit [facility]-Emergency Department Start: 03-09-2022 End: 03-09-2022 Emergency department patient visit [facility]-Emergency Department Start: 03-06-2022 End: 03-06-2022 Patient encounter procedure Bairon Torres MD Work Phone: [facility] Comment on above: Mixed hyperlipidemia (Primary Dx); Elevated TSH; Elevated blood sugar; Stage 3a chronic kidney disease (HCC); Bilateral carotid artery stenosis; Memory deficit; Osteoporosis, unspecified osteoporosis type, unspecified pathological fracture presence; Advance directive discussed with patient; Microscopic hematuria Start: 12-24-2021 End: 12-24-2021 Refill Louis Isaacs DO Work Phone: [facility] Comment on above: Refill Request Start: 12-24-2021 End: 12-24-2021 Patient encounter procedure [facility] Start: 07-25-2021 Refill Louis ford DO Work Phone: [facility] Start: 07-23-2021 End: 07-23-2021 Patient encounter procedure Louis Isaacs DO Work Phone: [facility] Comment on above: Osteoporosis, unspec ified osteoporosis type, unspecified pathological fracture presence (Primary Dx); Hyperlipidemia, unspecified hyperlipidemia type; Chronic ITP (idiopathic thrombocytopenia) ([facility]); Stage 3a chronic kidney disease ([facility]); Elevated TSH; Hyperglycemia; Fatigue, unspecified type; Right carotid bruit Start: 06-25-2021 End: 06-25-2021 Patient encounter procedure [facility] Start: 06-20-2021 Refill Louis ford DO Work Phone: [facility] Comment on above: Refill Request Start: 05-21-2021 End: 05-21-2021 Patient encounter procedure Angelica Martinez APRN.CNP Work Phone: [facility] Comment on above: Bilateral impacted c erumen (Primary Dx) Start: 04-23-2021 End: 04-23-2021 Patient encounter procedure [facility]-MRI - [facility] Start: 03-12-2021 End: 03-12-2021 Patient encounter procedure [facility]-Medical Surgical 3 Outp Start: 12-16-2016 Ambulatory AYANNA Cee ([facility]) [facility] Procedures Date Procedure Procedure Detail Performing Clinician Start: 04-25-[address] Caren Torres Work Phone: Start: 04-01-2022 Mri brain brain stem w/o contrast material Bairon Torres MD Work Phone: Start: 04-23-2021 MRI of brain without contrast Clostridium difficil e detection Dr. Bairon Torres Work Phone: Enteric Bacteriology Dr. Jorge Torres Work Phone: Lactoferrin measurement Dr. Bairon Torres Work Phone: [facility] OR parasites identification Dr. Bairon Torres Work Phone: Plan of Treatment Date Care Activity Detail Author Start: 04-19-2033 Urine microalbumin profile DTaP,Tdap,Td Vaccine (4 - Td or Tdap) [facility] Start: 05-09-2027 [facility] Start: 04-17-2027 [facility] Start: 11-10-2026 [facility] Start: 10-20-2026 [facility] Start: 05-18-2026 [facility] Start: 03-08-2026 [facility] Start: 08-17-2025 DIABETES SCREEN DIABETES SCREEN [facility] Start: 08-17-2025 [facility] Start: 02-14-2025 DIABETES SCREEN DIABETES SCREEN [facility] Start: 11-24-2024 End: 11-24-2024 Patient encounter procedure 11/24/2024 3:30 PM EDT Office Visit Neurology [address] [place], [place] [address] Hue Torres PA-C [address] [place], [place] [address] 6 month follow up Neurology Comment on above: 6 month follow up Start: 11-23-2024 End: 11-23-2024 Patient encounter procedure 11/23/2024 4:00 PM EDT Office Visit Neurology [address] [place], [place] [id number] Hue Torres PA-C [address] [place], [place] [id number] 6 month follow up Neurology Comment on above: 6 month follow up Start: 10-29-2024 End: 10-29-2024 Patient encounter procedure [facility] [place] Comment on above: Medicare Wellness Start: 10-21-2024 End: 01-20-2025 25-hydroxyvitamin D3 [Mass/volume] in Serum or Plasma VITAMIN D 25 HYDROXY Lab Routine Osteoporosis, unspecified osteoporosis type, unspecified pathological fracture presence Expected: 10/21/2024, Expires: 01/20/2025 [facility] Comment on above: Expected: 10/21/2024 , Expires: 01/20/2025 Start: 10-21-2024 End: 01-20-2025 CBC W Auto Differential panel - Blood COMPLETE BLOOD COUNT AND DIFFERENTIAL Lab Routine Stage 3a chronic kidney disease (HCC) Expected: 10/21/2024, Expires: 01/20/2025 [facility] Comment on above: Expected: 10/21/2024 , Expires: 01/20/2025 Start: 10-21-2024 End: 01-20-2025 Comprehensive metabolic 2000 panel - Serum or Plasma COMPREHENSIVE METABOLIC PANEL Lab Routine Stage 3a chronic kidney disease (HCC) Osteoporosis, unspecified osteoporosis type, unspecified pathological fracture presence Expected: 10/21/2024, Expires: 01/20/2025 [facility] Comment on above: Expected: 10/21/2024 , Expires: 01/20/2025 Start: 10-21-2024 End: 01-20-2025 Hemoglobin A1c in Blood HEMOGLOBIN A1C Lab Routine Elevated blood sugar Expected: 10/21/2024, Expires: 01/20/2025 [facility] Comment on above: Expected: 10/21/2024 , Expires: 01/20/2025 Start: 10-21-2024 End: 01-20-2025 LIPID PANEL, NONFASTING LIPID PANEL, NONFASTING Lab Routine Mixed hyperlipidemia Expected: 10/21/2024, Expires: 01/20/2025 [facility] Work Phone: Comment on above: Expected: 10/21/2024 , Expires: 01/20/2025 Start: 10-21-2024 End: 01-20-2025 Thyrotropin [Units/volume] in Serum or Plasma THYROID STIMULATING HORMONE Lab Routine Elevated TSH Expected: 10/21/2024, Expires: 01/20/2025 [facility] Comment on above: Expected: 10/21/2024 , Expires: 01/20/2025 Start: 10-20-2024 Covid-19 Vaccine () Covid-19 Vaccine () [facility] Comment on above: Postponed from 07/11 (Declined at this time) Start: 10-01-2024 Screening for osteoporosis Bone Density Screening [facility] Comment on above: Postponed from 04/03 (Postponed - Not Clinically Indicated) Start: 07-23-2024 DIABETES SCREEN DIABETES SCREEN [facility] Start: 05-19-2024 End: 05-19-2024 Patient encounter procedure Neurology Comment on above: follow up, Dementia follow up, Dementia, exelon 1.5 mg Start: 05-12-2024 End: 05-12-2024 Patient encounter procedure 05/12/2024 4:30 PM EDT Office Visit Neurology [address] [facility] [place], [place] [id number] Hue Torres PA-C [address] [facility] [place], [place] [address] follow up, Dementia Neurology Comment on above: follow up, Dementia Start: 04-23-2024 End: 04-23-2024 Patient encounter procedure 04/23/2024 1:20 PM EST Office Visit Family Mone Gutierrez [address] [place], [place] [id number] Carolyn Asher PA-C [address] [place] [address] 6 month follow up Family [facility] [place] Comment on above: 6 month follow up Start: 04-09-2024 End: 07-09-2024 Comprehensive metabolic 2000 panel - Serum or Plasma COMPREHENSIVE METABOLIC PANEL Lab Routine Mixed hyperlipidemia Stage 3a chronic kidney disease (HCC) Expected: 04/09/2024, Expires: 07/09/2024 [facility] Comment on above: Expected: 04/09/2024 , Expires: 07/09/2024 Start: 04-09-2024 End: 07-09-2024 Hemoglobin A1c in Blood HEMOGLOBIN A1C Lab Routine Elevated blood sugar Expected: 04/09/2024, Expires: 07/09/2024 [facility] Comment on above: Expected: 04/09/2024 , Expires: 07/09/2024 Start: 04-09-2024 End: 07-09-2024 LIPID PANEL, NONFASTING LIPID PANEL, NONFASTING Lab Routine Mixed hyperlipidemia Expected: 04/09/2024, Expires: 07/09/2024 [facility] Comment on above: Expected: 04/09/2024 , Expires: 07/09/2024 Start: 04-09-2024 End: 07-09-2024 Thyrotropin [Units/volume] in Serum or Plasma THYROID STIMULATING HORMONE Lab Routine Elevated TSH Expected: 04/09/2024, Expires: 07/09/2024 [facility] Comment on above: Expected: 04/09/2024 , Expires: 07/09/2024 Start: 03-30-2024 End: 03-30-2024 Patient encounter procedure 03/30/2024 9:40 AM EST Office Visit Family Medicine [place] [address] [place], [place] [id number] Carolyn Asher PA-C [address] [place], [place] [phone] discuss/evaluate for assisted living Family Mone Gutierrez Comment on above: discuss/evaluate for assisted living Start: 03-03-2024 Advance Directive Discussion Advance Directive Discussion [facility] Start: 03-03-2024 Medicare Advantage A nnual Wellness Visit Medicare Advantage Annual Wellness Visit [facility] Start: 01-23-2024 DIABETES SCREEN DIABETES SCREEN [facility] Start: 11-11-2023 End: 11-11-2023 Patient encounter procedure Neurology Comment on above: follow up follow up, Dementia Start: 11-02-2023 Covid-19 Vaccine () Covid-19 Vaccine () [facility] Start: 11-02-2023 Covid-19 Vaccine () Covid-19 Vaccine () [facility] Start: 11-02-2023 Influenza vaccination Influenza Vacc ine (#1) [facility] Start: 10-21-2023 End: 01-20-2024 Hemoglobin A1c in Blood [facility] Work Phone: Comment on above: Expected: 10/21/2023 , Expires: 01/20/2024 Start: 10-21-2023 End: 01-20-2024 Urinalysis complete panel - Urine URINALYSIS, WITH MICROSCOPIC Lab Routine Mixed hyperlipidemia Expected: 10/21/2023, Expires: 01/20/2024 [facility] Comment on above: Expected: 10/21/2023 , Expires: 01/20/2024 Start: 10-21-2023 End: 10-21-2023 Patient encounter procedure 10/21/2023 1:00 PM EDT Office Visit Family Medicine [place] [address] [place], [place] [phone] Bairon Torres MD [address] [place], [place] [phone] medicare wellness (R/S from provider out on 09/24/23) [facility] [place] Comment on above: medicare wellness (R /S from provider out on 09/24/23) Start: 09-24-2023 End: 09-24-2023 Patient encounter procedure 09/24/2023 5:00 PM EDT Office Visit Family Medicine [place] [address] [place] [address] Bairon Torres MD [address] [place], [place] [phone] medicare wellness [facility] [place] Comment on above: medicare wellness Start: 07-12-2023 Covid-19 Vaccine () Covid-19 Vaccine () [facility] Start: 05-23-2023 End: 08-22-2023 Calcium [Mass/volume] in Serum or Plasma CALCIUM TOTAL BLD Lab Routine Hypercalcemia Expected: 05/23/2023, Expires: 08/22/2023 [facility] Work Phone: Comment on above: Expected: 05/23/2023 , Expires: 08/22/2023 Start: 05-23-2023 End: 08-22-2023 Parathyrin.intact [Mass/volume] in Serum or Plasma PTH INTACT BLD Lab Routine Hypercalcemia Expected: 05/23/2023, Expires: 08/22/2023 [facility] Work Phone: Comment on above: Expected: 05/23/2023 , Expires: 08/22/2023 Start: 04-03-2023 Screening for osteoporosis Bone Density Screening [facility] Start: 03-06-2023 SHINGRIX VACCINE (2 of 2) LUU GRIX VACCINE (2 of 2) [facility] Comment on above: Postponed from 06/08 (Insurance Coverage) Start: 03-06-2023 Urine microalbumin profile [facility] Comment on above: Postponed from 01/26 (Insurance Coverage) Start: 03-03-2023 Advance Directive Discussion Advance Directive Discussion [facility] Start: 02-21-2023 End: 04-23-2023 Hemoglobin A1c in Blood HGB A1C Lab Routine Elevated blood sugar Expected: 02/21/2023, Expires: 04/23/2023 [facility] Work Phone: Comment on above: Expected: 02/21/2023 , Expires: 04/23/2023 Start: 02-21-2023 End: 04-23-2023 Hepatic function 2000 panel - Serum or Plasma HEPATIC FUNCTION PNL Lab Routine Mixed hyperlipidemia Expected: 02/21/2023, Expires: 04/23/2023 [facility] Work Phone: Comment on above: Expected: 02/21/2023 , Expires: 04/23/2023 Start: 02-21-2023 End: 04-23-2023 LIPID PANEL, NONFASTING LIPID PANEL, NONFASTING Lab Routine Mixed hyperlipidemia Expected: 02/21/2023, Expires: 04/23/2023 [facility] Work Phone: Comment on above: Expected: 02/21/2023 , Expires: 04/23/2023 Start: 11-01-2022 Covid-19 Vaccine () Covid-19 Vaccine () [facility] Start: 11-01-2022 Influenza vaccination C [facility] Start: 08-23-2022 End: 10-23-2022 25-hydroxyvitamin D3 [Mass/volume] in Serum or Plasma VITAMIN D 25 HYDROXY Lab Routine Osteoporosis, unspecified osteoporosis type, unspecified pathological fracture presence Expected: 08/23/2022, Expires: 10/23/2022 [facility] Work Phone: Comment on above: Expected: 08/23/2022 , Expires: 10/23/2022 Start: 08-23-2022 End: 10-23-2022 CBC W Auto Differential panel - Blood CBC + DIFF Lab Routine Stage 3a chronic kidney disease (HCC) Expected: 08/23/2022, Expires: 10/23/2022 [facility] Work Phone: Comment on above: Expected: 08/23/2022 , Expires: 10/23/2022 Start: 08-23-2022 End: 10-23-2022 Comprehensive metabolic 2000 panel - Serum or Plasma COMP METABOLIC PANEL Lab Routine Mixed hyperlipidemia Stage 3a chronic kidney disease (HCC) Expected: 08/23/2022, Expires: 10/23/2022 [facility] Work Phone: Comment on above: Expected: 08/23/2022 , Expires: 10/23/2022 Start: 08-23-2022 End: 10-23-2022 Hemoglobin A1c in Blood HGB A1C Lab Routine Mixed hyperlipidemia Elevated blood sugar Expected: 08/23/2022, Expires: 10/23/2022 [facility] Work Phone: Comment on above: Expected: 08/23/2022 , Expires: 10/23/2022 Start: 08-23-2022 End: 10-23-2022 LIPID PANEL, NONFASTING LIPID PANEL, NONFASTING Lab Routine Mixed hyperlipidemia Bilateral carotid artery stenosis Expected: 08/23/2022, Expires: 10/23/2022 [facility] Work Phone: Comment on above: Expected: 08/23/2022 , Expires: 10/23/2022 Start: 08-23-2022 End: 10-23-2022 Thyrotropin [Units/volume] in Serum or Plasma TSH BLD Lab Routine Elevated TSH Expected: 08/23/2022, Expires: 10/23/2022 [facility] Work Phone: Comment on above: Expected: 08/23/2022 , Expires: 10/23/2022 Start: 08-23-2022 End: 10-23-2022 Urinalysis complete panel - Urine URINALYSIS, WITH MICROSCOPIC Lab Routine Mixed hyperlipidemia Stage 3a chronic kidney disease (HCC) Microscopic hematuria Expected: 08/23/2022, Expires: 10/23/2022 [facility] Work Phone: Comment on above: Expected: 08/23/2022 , Expires: 10/23/2022 Start: 04-25-2022 Patient discharge [facility] Start: 04-24-2022 Application of intermittent pneumatic compression device [facility] Start: 04-24-2022 Following clinical pathway protocol [facility] Start: 04-24-2022 Catheterization of vein [facility] Start: 04-24-2022 Enteric precautions [facility] Start: 04-24-2022 End: 04-24-2022 [facility] Start: 04-24-2022 Ambulation without limitation [facility] Start: 04-24-2022 Assessment of risk o f venous thromboembolism [facility] Start: 04-24-2022 Documentation procedure [facility] Start: 04-24-2022 Incentive spirometry [facility] Start: 04-24-2022 Insertion of cathete r into peripheral vein [facility] Start: 04-24-2022 Measuring intake and output [facility] Start: 04-24-2022 Oxygen therapy [facility] Start: 04-24-2022 Providing care accor ding to standard [facility] Start: 04-24-2022 Referral to gastroenterology service [facility] Start: 04-24-2022 Referral to occupati onal therapist [facility] Start: 04-24-2022 Referral to service [facility] Start: 04-24-2022 Admission procedure [facility] Start: 04-24-2022 Colonoscopy w/biopsy single/multiple COLONOSCOPY AND BIOPSY [facility] Start: 04-24-2022 Patient referral to dietitian [facility] Start: 04-05-2022 End: 06-05-2022 Urinalysis complete panel - Urine URINALYSIS, WITH MICROSCOPIC Lab Routine Microscopic hematuria Expected: 04/05/2022, Expires: 06/05/2022 [facility] Work Phone: Comment on above: Expected: 04/05/2022 , Expires: 06/05/2022 Start: 03-06-2022 End: 05-06-2022 Cobalamin (Vitamin B12) [Mass/volume] in Serum or Plasma VITAMIN B12 BLOOD Lab Routine Memory deficit Expected: 03/06/2022, Expires: 05/06/2022 [facility] Work Phone: Comment on above: Expected: 03/06/2022 , Expires: 05/06/2022 Start: 03-06-2022 End: 05-06-2022 Folate [Mass/volume] in Serum or Plasma FOLATE SERUM Lab Routine Memory deficit Expected: 03/06/2022, Expires: 05/06/2022 [facility] Work Phone: Comment on above: Expected: 03/06/2022 , Expires: 05/06/2022 Start: 03-06-2022 End: 05-06-2022 SYPHILIS TOTAL W/REFLEX SYPHILIS TOTAL W/REFLEX Lab Routine Memory deficit Expected: 03/06/2022, Expires: 05/06/2022 [facility] Work Phone: Comment on above: Expected: 03/06/2022 , Expires: 05/06/2022 Start: 01-26-2022 Urine microalbumin profile DTAP,TDAP,TD (3 - Tdap) [facility] Start: 11-01-2021 Influenza vaccination INFLUENZA (#1) [facility] Start: 07-23-2021 End: 09-22-2021 CBC panel - Blood by Automated count [facility] Work Phone: Comment on above: Expected: 07/23/2021 , Expires: 09/22/2021 Start: 07-23-2021 End: 09-22-2021 Comprehensive metabolic 2000 panel - Serum or Plasma [facility] Work Phone: Comment on above: Expected: 07/23/2021 , Expires: 09/22/2021 Start: 07-23-2021 End: 09-22-2021 Hemoglobin A1c/Hemoglobin.total in Blood [facility] Work Phone: Comment on above: Expected: 07/23/2021 , Expires: 09/22/2021 Start: 07-23-2021 End: 09-22-2021 LIPID PANEL, NONFASTING [facility] Work Phone: Comment on above: Expected: 07/23/2021 , Expires: 09/22/2021 Start: 07-23-2021 End: 09-22-2021 T3 FREE BLD [facility] Work Phone: Comment on above: Expected: 07/23/2021 , Expires: 09/22/2021 Start: 07-23-2021 End: 09-22-2021 T4 FREE/FREE THYROX [facility] Work Phone: Comment on above: Expected: 07/23/2021 , Expires: 09/22/2021 Start: 07-23-2021 End: 09-22-2021 Thyrotropin [Units/volume] in Serum or Plasma [facility] Work Phone: Comment on above: Expected: 07/23/2021 , Expires: 09/22/2021 Start: 07-23-2021 End: 09-22-2021 VITAMIN B12 BLOOD [facility] Work Phone: Comment on above: Expected: 07/23/2021 , Expires: 09/22/2021 Start: 07-23-2021 End: 09-22-2021 VITAMIN D 25 HYDROXY [facility] Work Phone: Comment on above: Expected: 07/23/2021 , Expires: 09/22/2021 Start: 04-21-2021 COVID-19 VACCINE (4 - Booster for Moderna series) COVID-19 VACCINE (4 - Booster for Moderna series) [facility] Start: 03-16-2021 COVID-19 VACCINE (4 - Booster for Moderna series) COVID-19 VACCINE (4 - Booster for Moderna series) [facility] Start: 03-03-2021 ADVANCE DIRECTIVE DISCUSSION ADVANCE DIRECTIVE DISCUSSION [facility] Start: 03-03-2021 DEPRESSION ASSESSMENT DEPRESSION ASS ESSMENT [facility] Start: 06-09-2019 SHINGRIX VACCINE (2 of 2) LUU GRIX VACCINE (2 of 2) [facility] Start: 06-09-2019 SHINGRIX VACCINE (3 of 3) LUU GRIX VACCINE (3 of 3) [facility] Start: 06-20-2016 PNEUMOCOCCAL: 65+ (3 - PPSV23 or PCV20) PNEUMOCOCCAL: 65+ (3 - PPSV23 or PCV20) [facility] Start: 1997 RSV Vaccine (1 - 1-d ose 60+ series) RSV Vaccine (1 - 1-dose 60+ series) [facility] Clostridioides diffi cile toxin genes [Presence] in Stool by JONI with probe detection CLOSTRIDIUM DIFFICILE TOXIN BY PCR Lab Routine Diarrhea, unspecified type Ordered: 08/05/2024 [facility] Work Phone: Comment on above: Ordered: 08/05/2024 ENTERIC BACTERIAL PA NINO BY PCR ENTERIC BACTERIAL PANEL BY PCR Lab Routine Diarrhea, unspecified type Ordered: 08/05/2024 [facility] Comment on above: Ordered: 08/05/2024 FAT, FECAL QUAL FAT, FECAL QUAL Lab Routine Diarrhea, unspecified type Ordered: 08/05/2024 [facility] Comment on above: Ordered: 08/05/2024 FECAL LACTOFERRIN/LEUKOCYTES FECAL LACTOFERRIN/LEUKOCYTES Lab Routine Diarrhea, unspecified type Ordered: 08/05/2024 [facility] Comment on above: Ordered: 08/05/2024 Giardia lamblia+Cryptosporidium sp Ag [Presence] in Stool by Immunoassay CRYPTOSPORIDIUM AND GIARDIA ANTIGENS BY EIA Microbiology Routine Diarrhea, unspecified type Ordered: 08/05/2024 [facility] Comment on above: Ordered: 08/05/2024 End: 04-05-2023 Mri brain brain stem w/o contrast material MRI BRAIN WO IVCON Radiology Routine Memory deficit 1 Occurrences starting 03/06/2022 until 04/05/2023 [facility] Work Phone: Comment on above: 1 Occurrences starti ng 03/06/2022 until 04/05/2023 Ova and parasites identified in Unspecified specimen by Light microscopy [facility] Patient Education [facility] Work Phone: Patient referral [facility] Work Phone: Removal impacted cer umen instrumentation unilat [facility] EAR WAX REMOVA Procedures Routine Bilateral impacted cerumen Ordered: 05/21/2021 [facility] Work Phone: Comment on above: Ordered: 05/21/2021 End: 07-23-2022 US CAROTID ARTERIES [facility] US CAROTID [facility]ERIES [facility] Vascular Lab Routine Right carotid bruit 1 Occurrences starting 07/23/2021 until 07/23/2022 [facility] Work Phone: Comment on above: 1 Occurrences starti ng 07/23/2021 until 07/23/2022 End: 09-05-2023 US CAROTID ARTERIES [facility] US CAROTID [facility]ERIES [facility] Vascular Lab Routine Bilateral carotid artery stenosis 1 Occurrences starting 09/04/2022 until 09/05/2023 [facility] Work Phone: Comment on above: 1 Occurrences starti ng 09/04/2022 until 09/05/2023 [facility] Immunizations Immunization Date Immunization Notes Care Provider Johnny mayo 12-01-2023 Seasonal trivalent influenza vaccine, adjuvanted, preservative free Carolyn Asher PA-C Work Phone: [facility] 04-19-2023 tetanus toxoid, redu uqita diphtheria toxoid, and acellular pertussis vaccine, adsorbed Hue Torres PA-C Work Phone: [facility] 04-05-2023 respiratory syncytia l virus (RSV) vaccine, adjuvanted (AREXVY) Hue Torres PA-C Work Phone: [facility] 03-13-2023 COVID-19 vaccine, ag e 12+ yr, season ([employer]) Hue Vargheserao BENTLEY Work Phone: [facility] 01-01-2023 influenza (aIIV4) vaccine, age 65+ yr, quadrivalent, PF (FLUAD QUAD) Hue [facility] Work Phone: [facility] Work Phone: 01-01-2023 influenza virus vacc ine, unspecified formulation Hue [facility] Work Phone: [facility] 03-26-2022 zoster vaccine recombinant Hue [facility] Work Phone: [facility] 01-01-2022 influenza, high dose seasonal, preservative-free Bairon Torres MD Work Phone: [facility] 01-01-2022 influenza virus vacc ine, unspecified formulation Bairon Torres MD Work Phone: [facility] 11-10-2021 influenza, injectabl e, quadrivalent, preservative free Dr. Bairon Torres Work Phone: [facility] 11-10-2021 influenza, seasonal, injectable Dr. Bairon Torres Work Phone: [facility] 03-26-2021 zoster vaccine recombinant Bairon Torres MD Work Phone: [facility] Work Phone: 01-19-2021 COVID-19 vaccine, fu ll dose (MODERNA) Angelica Martinez TRAIN MASTER.[employer] Work Phone: [facility] Work Phone: 11-15-2020 influenza, seasonal, injectable Angelica Martinez TRAIN MASTER.[employer] Work Phone: [facility] Work Phone: 04-27-2020 COVID-19 vaccine, fu ll dose (MODERNA) Angelica Martinez APRN.[employer] Work Phone: [facility] Work Phone: 03-30-2020 COVID-19 vaccine, fu ll dose (MODERNA) Angelica Martinez APRN.[employer] T[employer] Work Phone: [facility] Work Phone: 10-14-2019 zoster vaccine recombinant Bairon Torres MD Work Phone: [facility] Work Phone: 04-14-2019 zoster vaccine recombinant Angelica Martinez APRN.[employer] T[employer] Work Phone: [facility] Work Phone: 11-26-2018 influenza, high dose seasonal, preservative-free Angelica Martinez TRAIN MASTER.[employer] T[employer] Work Phone: [facility] Work Phone: 11-27-2016 influenza virus vacc ine, unspecified formulation Angelica Martinez TRAIN MASTER.[employer] TEND[employer] Work Phone: [facility] 06-21-2015 pneumococcal conjuga te vaccine, 13 valent Angelica Martinez TRAIN MASTER.[employer] TEND[employer] Work Phone: [facility] 12-14-2014 influenza, high dose seasonal, preservative-free Angelica Martinez TRAIN MASTER.[employer] T[employer] Work Phone: [facility] 11-25-2013 Influenza virus vaccine [facility] 11-21-2013 influenza, seasonal, injectable Angelica Martinez TRAIN MASTER.[employer] T[employer] Work Phone: [facility] 12-27-2012 Pneumococcal Vaccine [facility] Work Phone: 12-27-2012 pneumococcal vaccine , unspecified formulation [facility] 01-27-2012 tetanus and diphther ia toxoids, adsorbed, preservative free, for adult use (2 Lf of tetanus toxoid and 2 Lf of diphtheria toxoid) Angelica Martinez APRN.[employer] F[employer]NACE TENDER Work Phone: [facility] 01-27-2012 zoster vaccine, live Angelica Martinez TRAIN MASTER.[employer] T[employer] Work Phone: [facility] 11-25-2011 influenza virus vacc ine, unspecified formulation Angelica Martinez TRAIN MASTER.[employer] Work Phone: [facility] Work Phone: 12-06-2009 influenza virus vacc ine, unspecified formulation Angelicalyndsey Martinez TRAIN MASTER.[employer] T[employer] Work Phone: [facility] 12-19-2008 influenza virus vacc ine, unspecified formulation Angelicalyndsey Martinez TRAIN MASTER.[employer] T[employer] Work Phone: [facility] Work Phone: 01-12-2007 pneumococcal polysaccharide vaccine, 23 valent Angelica Martinez TRAIN MASTER.[employer] T[employer] Work Phone: [facility] 01-09-2006 diphtheria, tetanus toxoids and acellular pertussis vaccine Angelica Martinez TRAIN MASTER.[facility] Work Phone: [facility] Work Phone: 01-09-2006 influenza virus vacc ine, unspecified formulation Angelica Martinez APRN.[employer] T[employer] Work Phone: [facility] Work Phone: 01-10-2005 influenza virus vacc ine, unspecified formulation Angelica Martinez TRAIN MASTER.[facility] Work Phone: [facility] Work Phone: Payers Date Payer Category Payer Self-pay [id number] 2021 Medicare AET MEDICARE A ETNA MEDICARE PPO [id number] 2021-Present [phone] [address] [place] [address] PPO [id number] 2021 Medicare AETNA MEDICARE A ETNA MEDICARE PPO [id number] 2021-Present [phone] [address] [place] [address] PPO [id number] 2021 Medicare (Managed Care) [facility] [place] [id number] 2021 Private Health Insurance [place] [id number] 2006 Unknown [id number] 2002 Medicare [id number] Unknown [id number] Unknown [id number] Social History Date Type Detail Facility Start: 06-10-2013 Tobacco smoking stat us NHIS Never smoked tobacco [facility] Start: 05-21-2021 End: 05-19-2024 Alcohol intake Current non-drinker of alcohol (finding) [facility] Start: 1935 Sex Assigned At Not on file [facility] Start: 05-11-2021 End: 07-23-2021 Exposure to SARS-CoV-2 (event) Not sure [facility] Start: 03-09-2021 End: 04-24-2022 Tobacco smoking status NHIS Unknown if ever smoked [facility] Start: 1935 Sex Assigned At Female [facility] Start: 06-10-2013 Tobacco use and exposure Smoke less tobacco non-user [facility] Work Phone: Start: 05-08-2022 History SDOH Alcohol Frequency 1 [facility] Start: 05-08-2022 History SDOH Alcohol Std Drinks 0 [facility] Start: 05-08-2022 History SDOH Social Connections Phone 3 [facility] Start: 05-08-2022 History SDOH Social Connections Get Together 2 [facility] Start: 05-08-2022 History SDOH Social Connections Living 5 [facility] Start: 05-08-2022 End: 05-19-2024 History of Social function [facility] Start: 05-08-2022 End: 05-19-2024 Social connection and isolation panel [facility] Do you belong to any clubs or organizations such as restorationist groups, unions, fraternal or athletic groups, or school groups? Yes [facility] Are you now , , , , never or living with a partner? [facility] How often to you hav e a drink containing alcohol? Never [facility] How many standard dr inks containing alcohol do you have on a typical day? Patient does not drink [facility] Do you feel stress - tense, restless, nervous, or anxious, or unable to sleep at night because your mind is troubled all the time - these days [OSQ] Not at all [facility] (I/We) worried wheth er (my/our) food would run out before (I/we) got money to buy more. Never true [facility] In the past 12 month s, was there a time when you were not able to pay the mortgage or rent on time? No [facility] NEGATED: Highlighted row [facility] Goals Date Patient Goal Desired Activity /State Functional Status Date Assessment Result Facility 04-25-2022 Functional status Activity Abili ty Independent [facility] Work Phone: 04-25-2022 Functional status Ambulates [facility] Work Phone: 08-16-2014 Are you deaf, or do you have serious difficulty hearing No 08/16/2014 10:13 AM Lizeth Cano MA No [facility] 08-16-2014 Are you blind, or do you have serious difficulty seeing, even when wearing glasses No 08/16/2014 10:13 AM EDT Lizteh Pina MA No [facility] 08-16-2014 Do you have serious difficulty walking or climbing stairs No 08/16/2014 10:13 AM EDT Lizeth Pina MA No [facility] 08-16-2014 Do you have difficul ty dressing or bathing No 08/16/2014 10:13 AM EDT Lizeth Pina MA No [facility] 08-16-2014 Because of a physica l, mental, or emotional condition, do you have difficulty doing errands alone such as visiting a physician's office or shopping No 08/16/2014 10:13 AM EDT Lizeth Pina MA No [facility] Mental Status Date Assessment Result Facility 04-25-2022 Cognitive function Voice/Name [facility] Work Phone: 03-11-2022 Cognitive function Level Of Cons ciousness Awake;Alert;Appropriate [facility] Work Phone: 03-12-2021 Cognitive function Awake;Alert;A ppropriate;Fol lows Commands [facility] Work Phone: 08-16-2014 Because of a physica l, mental, or emotional condition, do you have serious difficulty concentrating, remembering, or making decisions No 08/16/2014 10:13 AM EDT Lizeth Pina MA No [facility] Clinical Notes 10-07-2013 to 08-30-2024 Telephone Encounter - Amina Weaver MA - 08/30/2024 11:56 AM EDTTelephone Encounter - Amina Weaver MA - 08/30/2024 11:56 AM EDTTelephone Encounter - Bairon Torres MD - 08/30/2024 9:40 AM EDT Note Date & Type Note Facility 08-30-2024 Telephone encounter Note Call to the [facility], spoke with Nurse Lucinda. Notified her of message below from the Provider. She will send order for PCP to sign. Amina Weaver MA [facility] 08-30-2024 Miscellaneous Notes Call to the [facility], spoke with Nurse Lucinda. Notified her of message below from the Provider. She will send order for PCP to sign. Amina Weaver MA Please contact the [facility] and speak to patient's nurse. Advise OTC imodium AD. One tab twice a day for diarrhea as needed. Please see update from Daughter regarding patient. Amina Waever MA documented in this encounter [facility] 08-30-2024 Telephone encounter Note Please contact the [facility] and speak to patient's nurse. Advise OTC imodium AD. One tab twice a day for diarrhea as needed. [facility] 08-30-2024 Telephone encounter Note Please see update from Daughter regarding patient. Amina Weaver MA [facility] 08-23-2024 Telephone encounter Note FYI. [facility] 08-23-2024 Miscellaneous Notes FYI. documented in this encounter [facility] 08-20-2024 Telephone encounter Note Daughter returned call and given provider's message below with verbalized understanding. Daughter states she will see mother lizbeth and find out the answers to these questions. Daughter will send MC message to pcp with reply. [facility] 08-20-2024 Miscellaneous Notes Daughter returned call and given provider's message below with verbalized understanding. Daughter states she will see mother lizbeth and find out the answers to these questions. Daughter will send MC message to pcp with reply. Left message for patient to contact office. Keerthi Go MA Let Marimar ohara, know her mom's stool studies were all ok. 1) is she still having diarrhea. If so the next step would be a colonoscopy if they want to pursue this. 2) is she eating foods that has been an issue for her in the past and with her dementia she no longer remembers this. The other option is we can put her on Imodium one tab twice a day to start to see if this stops it without constipating her. documented in this encounter [facility] 08-20-2024 Telephone encounter Note Left message for patient to contact office. Keerthi Go MA [facility] 08-19-2024 Telephone encounter Note Let daughterMarimar, know her mom's stool studies were all ok. 1) is she still having diarrhea. If so the next step would be a colonoscopy if they want to pursue this. 2) is she eating foods that has been an issue for her in the past and with her dementia she no longer remembers this. The other option is we can put her on Imodium one tab twice a day to start to see if this stops it without constipating her. [facility] 08-05-2024 Telephone encounter Note Called and spoke with Jud at [facility] ([phone]) Informed and verbalized understanding. Geetha Kumar MA [facility] 08-05-2024 Miscellaneous Notes Called and spoke with Jud at [facility] ([phone]) Informed and verbalized understanding. Geetha Kumar MA Please contact the Avenue at [phone] and speak to nurse caring for mrs Amy Kumar. Let them know one of the daughter will be bring in stool kits to collect stool samples for her diarrhea. The daughter will also be bring in a probiotic with 5 billion organisms per capsule or tablet. Order is to take one a day. documented in this encounter [facility] 08-05-2024 Telephone encounter Note Please contact the Avenue at [phone] and speak to nurse caring for mrs Amy Kumar. Let them know one of the daughter will be bring in stool kits to collect stool samples for her diarrhea. The daughter will also be bring in a probiotic with 5 billion organisms per capsule or tablet. Order is to take one a day. [facility] 06-29-2024 Note HNO ID: [id number] Author: TOÑO YEBOAH RN Service: ? Author Type: Registered Nurse Type: Progress Notes Filed: 06/29/2024 10:47 Note Text: Value Based Care Coordination Chart Review Provider Action / FYI: Upon review of patient chart, the patient is excluded from Chronic Disease Management Patient is not a candidate for CDM at this time and placed in the following status: Cancelled- lives in facility with nursing care Action taken: No action needed . Toño Yeboah RN June 29, 2024 10:46 AM [facility] 06-29-2024 History of Present illness Narrative Value Based Care Coordination Chart Review Provider Action / FYI: Upon review of patient chart, the patient is excluded from Chronic Disease Management Patient is not a candidate for CDM at this time and placed in the following status: Cancelled- lives in facility with nursing care Action taken: No action needed . Toño Yeboah RN June 29, 2024 10:46 AM documented in this encounter [facility] 06-29-2024 Note Patient Outreach (AM BC) GUICHO MARTINEZ ([id number]) 1935 F Date Time Provider Department 06/29/24 TOÑO YEBOAH During your visit today, we recorded the following information about you: Toño Yeboah RN 06/29/2024 10:47 AM Signed Value Based Care Coordination Chart Review Provider Action / FYI: Upon review of patient chart, the patient is excluded from Chronic Disease Management Patient is not a candidate for CDM at this time and placed in the following status: Cancelled- lives in facility with nursing care Action taken: No action needed . Toño Yeboah RN June 29, 2024 10:46 AM Allergies As of Date: 06/29/2024 Noted Allergy Reaction ASA (SALICYLATES) 01/08/2005 14 - Other: See Comments Comments: Hx of low plateletes IBUPROFEN 01/08/2005 4 - Hives PENICILLINS 01/08/2005 14 - Other: See Comments Comments: passed out ARICEPT (DONEPEZIL) 03/11/2022 14 - Other: See Comments Comments: Nausea, vomiting and dizziness. Date Reviewed: 05/19/2024 Reviewed by: Hue Torres PA-C - Fully Assessed Reason for Visit: Application Development Specialist- Other [[id number]] Prescriptions as of 06/29/2024 - rivastigmine tartrate (EXELON) 1.5 mg capsule Take 1 capsule in the morning and 2 capsules at night. - hydrOXYchloroQUINE (PLAQUENIL) 200 mg tablet Take 1 tablet by mouth once daily. Per rheumatology - sskugp-zrerxnim-tggabaw (ZENPEP) 40,000-126,000- 168,000 unit delayed release capsule Take by mouth three times daily with meals. - BIOTIN ORAL Take 10,000 mcg by mouth once daily. - THERAPEUTIC MULTIVITAMIN TAB Take one(1) tablet daily. 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] 10/07/2013 06/21/2015 Lactose intolerance [E73.9] 02/23/2016 Osteoporosis [M81.0] 12/02/2018 Stage 3a chronic kidney disease (HCC) [N18.31] 07/18/2020 Elevated TSH [R79.89] 07/23/2021 Elevated blood sugar [R73.9] 07/23/2021 Fatigue [R53.83] 07/23/2021 Bilateral carotid artery stenosis [I65.23] 01/08/2022 Living will on file at physician's office [Z78.*03/06/2022 Advance directive discussed with patient [Z71.8*03/06/2022 Hydrocephalus in diseases classified elsewhere *04/01/2022 Dementia of the Alzheimer's type, with late ons*05/08/2022 Encounter for Medicare annual wellness exam [Z0*09/04/2022 Balance problems [R26.89] 08/25/2023 Risk for falls [Z91.81] 08/25/2023 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 Requested Prescriptions Signed Prescriptions Disp Refills nitrofurantoin monohydrate and macrocrystal (MACROBID) 100 mg capsule 14 capsule 0 Sig: Take 1 capsule by mouth two times a day for 7 days. Authorizing Provider: BAIRON TORRES MD [facility] 06-07-2024 Miscellaneous Notes The following approved medication requests have been transmitted electronically. Requested Prescriptions Signed Prescriptions Disp Refills nitrofurantoin monohydrate and macrocrystal (MACROBID) 100 mg capsule 14 capsule 0 Sig: Take 1 capsule by mouth two times a day for 7 days. Authorizing Provider: BAIRON TORRES MD Called and spoke with Joleen. Urine culture was not ordered. Given verbal order as directed by Dr. Torres. Instructions to get sample before antibiotic is started. Notified Joleen that Marimar will be making sure someone picks up the antibiotic from [facility] and get it in to them tonight. Pt is having frequent urination and is confused. She started symptoms yesterday so the nurse had called the compo conveyor operator provider who was Dr. Miles. A urinalysis was ordered. Joleen nurse from [facility] calling with results which show blood and leukocytes. She will fax results to this nurse and will forward to Dr. [place] provider compo conveyor operator. Results received. Dr. Torres working in office and results shown to him. Called and spoke with daughter Marimar Owen. Will send med to [facility]. Will call the [facility] back and confirm culture was ordered as well. documented in this encounter [facility] 06-07-2024 Telephone encounter Note Called and spoke with Joleen. Urine culture was not ordered. Given verbal order as directed by Dr. Torres. Instructions to get sample before antibiotic is started. Notified Joleen that Marimar will be making sure someone picks up the antibiotic from [facility] and get it in to them tonight. [facility] 06-07-2024 Telephone encounter Note Pt is having frequent urination and is confused. She started symptoms yesterday so the nurse had called the compo conveyor operator provider who was Dr. Miles. A urinalysis was ordered. Joleen nurse from [facility] calling with results which show blood and leukocytes. She will fax results to this nurse and will forward to Dr. K[place]ney provider compo conveyor operator. Results received. Dr. Torres working in office and results shown to him. Called and spoke with daughter Marimar Owen. Will send med to [facility]. Will call the [facility] back and confirm culture was ordered as well. [facility] 05-19-2024 Instructions Hue Torres PA-C - 05/19/2024 5:16 PM EDT Continue with keeping your brain and body active Continue with exelon 1.5mg in the morning and 3mg in the evening Follow up in 6 months documented in this encounter [facility] 05-19-2024 Note HNO ID: [id number] Author: HUE TORRES PA-C Service: ? Author Type: Physician Centrifugal Screen Tender Type: Progress Notes Filed: 05/19/2024 17:34 Note Text: [facility] Name: Guicho Martinez Age: [age] year old Gender: female Primary Care Provider: Bairon Torres MD 05/19/2024 - General Neurology, Hue Torres PA-C ASSESSMENT ASSESSMENT/PLAN: 1. Dementia without behavioral disturbance, psychotic disturbance, mood disturbance, or anxiety, unspecified dementia severity, unspecified dementia type (HCC) - ICD9: 294.20, ICD10: F03.90 Patient with some mild decline since last appointment in terms of cognition. Having more issues with language retrieval and navigating familiar devices like her phone, television. Slightly frustrated with this but no personality changes, aggression. Sleeping well, recently moved into a [facility] called [facility] and has been adjusting well to this but is only been there for a few weeks. Notes that she has become more active physically and socially, does have some weight loss since last appointment. Notes some adjustment with the food at the facility as well. Did have 1 fall that was mechanical while she was living at her house but none since she has been living at [facility]. No new concerns today, Charlotte did decline from previous at 10/19 today. No abnormalities on physical exam, no signs of stroke. Patient did have some issues with language that she did not have before. Will continue with Exelon 1.5 mg in the morning and 3 mg in the evening. Encouraged conservative therapy as well. No other new symptoms that would warrant additional workup at this time. Patient to follow-up in 6 months or sooner should any symptoms change or worsen. Hue Torres PA-C Alzheimer's Society: Join to learn about many resources and supports for you, as the caregiver Community Resources: E.g. LIFE - A Dementia Friendly [facility] on the [place] side [facility]. SHIPPING ROOM HELPER/OT/PT: Speech therapy, Occupational therapy, Physical Therapy Driving: Do you have safety concerns? Power of Humidifier Maintenance Worker/ planning of the patient's will Project Lifesaver: Local police will keep records of your loved one if they tend to get lost, and will bring them home. Lifeline: emergency response button/necklace/bracelet Caregiver Health: Important to ensure you are taking care of your mental and physical health so you can care for your loved one SW consult: Do you want a social work referral to understand what resources are available to you? This is a 88 year old female followed for dementia Current medication treatment: exelon 1.5mg in the morning and 3mg Indication for repeat cognitive testing: No No diagnosis found. No follow-ups on file. Chart, labs,and relevant images reviewed. Chief Complaint:Patient presents with: Established Patient: Dementia- no new concerns Chart Review: 11/11/23 Last Filed Values Date of Most Recent Assessment and Plan 11/11/23 Specialty General Neurology Assessment ASSESSMENT/PLAN: 1. Dementia without behavioral disturbance, psychotic disturbance, mood disturbance, or anxiety, unspecified dementia severity, unspecified dementia type (HCC) - ICD9: 294.20, ICD10: F03.90 Patient with her daughter for follow-up appointment. Doing very well in terms of memory and dementia. Unfortunately, was unable to do a [place] due to time constraints. 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 Patient's primary concern today was her neighbor who has been having some issues with cognition, seems to bother her and is very bossy. Prevents her from going outside and going on walks as she seems to watch for her. Daughter notes this is caused her to be more agitated and on edge. Otherwise, patient is doing very well, did gain a pound and a half since last appointment. Notes that she is eating all the time, eats lots of high caloric foods. Encouraged high calorie drinks as well including Ensure and patient and daughter states they will try these as well. Patient no longer driving. Still compliant with Exelon 1.5 mg. No new concerns today that would warrant additional workup. Encouraged conservative therapy as well including increasingphysical activity and cognitive activity. Discussed safety precautions at home as well in depth. Patient and daughter agreeable to treatment plan of care at this time, questions were answered. Patient to follow-up in 5 to 6 months, or sooner should any symptoms change or worsen. HPI: Last seen on 11/11/23 for dementia, stable. Having some issues with her neighbors, on exelon. Weight has been stable but still low. Patient presents with her daughter for follow-up appointment. Since last appointment she moved into [facility] which is an assisted living facility. Notes that she is been much more active since this move but she is walking around the facility and has (more content not included)... [facility] 05-19-2024 History of Present illness Narrative Images from the original note were not included. [facility] Name: Guicho Martinez Age: [age] year old Gender: female Primary Care Provider: Bairon Torres MD 05/19/2024 - General Neurology, Hue Torres PA-C ASSESSMENT ASSESSMENT/PLAN: 1. Dementia without behavioral disturbance, psychotic disturbance, mood disturbance, or anxiety, unspecified dementia severity, unspecified dementia type (HCC) - ICD9: 294.20, ICD10: F03.90 Patient with some mild decline since last appointment in terms of cognition. Having more issues with language retrieval and navigating familiar devices like her phone, television. Slightly frustrated with this but no personality changes, aggression. Sleeping well, recently moved into a [facility] called [facility] and has been adjusting well to this but is only been there for a few weeks. Notes that she has become more active physically and socially, does have some weight loss since last appointment. Notes some adjustment with the food at the facility as well. Did have 1 fall that was mechanical while she was living at her house but none since she has been living at [facility]. No new concerns today, Charlotte did decline from previous at 819 today. No abnormalities on physical exam, no signs of stroke. Patient did have some issues with language that she did not have before. Will continue with Exelon 1.5 mg in the morning and 3 mg in the evening. Encouraged conservative therapy as well. No other new symptoms that would warrant additional workup at this time. Patient to follow-up in 6 months or sooner should any symptoms change or worsen. Hue Torres PA-C Alzheimer's Society: Join to learn about many resources and supports for you, as the caregiver Community Resources: E.g. [facility] - [facility] [place] [facility]. SHIPPING ROOM HELPER/OT/PT: Speech therapy, Occupational therapy, Physical Therapy Driving: Do you have safety concerns? Power of Humidifier Maintenance Worker/ planning of the patient's will Project Lifesaver: Local police will keep records of your loved one if they tend to get lost, and will bring them home. Lifeline: emergency response button/necklace/bracelet Caregiver Health: Important to ensure you are taking care of your mental and physical health so you can care for your loved one SW consult: Do you want a social work referral to understand what resources are available to you? This is a 88 year old female followed for dementia Current medication treatment: exelon 1.5mg in the morning and 3mg Indication for repeat cognitive testing: No No diagnosis found. No follow-ups on file. Chart, labs,and relevant images reviewed. Chief Complaint:Patient presents with: Established Patient: Dementia- no new concerns Chart Review: 11/11/23 Last Filed Values Date of Most Recent Assessment and Plan 11/11/23 Specialty General Neurology Assessment ASSESSMENT/PLAN: 1. Dementia without behavioral disturbance, psychotic disturbance, mood disturbance, or anxiety, unspecified dementia severity, unspecified dementia type (HCC) - ICD9: 294.20, ICD10: F03.90 Patient with her daughter for follow-up appointment. Doing very well in terms of memory and dementia. Unfortunately, was unable to do a [place] due to time constraints. 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 Patient's primary concern today was her neighbor who has been having some issues with cognition, seems to bother her and is very bossy. Prevents her from going outside and going on walks as she seems to watch for her. Daughter notes this is caused her to be more agitated and on edge. Otherwise, patient is doing very well, did gain a pound and a half since last appointment. Notes that she is eating all the time, eats lots of high caloric foods. Encouraged high calorie drinks as well including Ensure and patient and daughter states they will try these as well. Patient no longer driving. Still compliant with Exelon 1.5 mg. No new concerns today that would warrant additional workup. Encouraged conservative therapy as well including increasing physical activity and cognitive activity. Discussed safety precautions at home as well in depth. Patient and daughter agreeable to treatment plan of care at this time, questions were answered. Patient to follow-up in 5 to 6 months, or sooner should any symptoms change or worsen. HPI: Last seen on 11/11/23 for dementia, stable. Having some issues with her neighbors, on exelon. Weight has been stable but still low. Patient presents with her daughter for follow-up appointment. Since last appointment [facility] facility. Notes that she is been much more active since this move but she is walking around the facility and has lost a few pounds. Notes that she still eating well but is having some trouble just to the food at the facility. Saw primary care for this and they are considering starting some stimulant medications for appetite as well. Patient did have 1 fall in January. States that she was coming outside of her house before she moved into the facility and there was some construction equipment right outside her door, her feet got tangled and she slid forward onto the curb. Sustained some abrasions and lacerations, had 3 stitches below her right eye but no significant injury including intracranial bleed or any fractures. Notes her memory has been stable, but also noting some worsening with language. Has difficulty retrieving words and with certain names. Daughter notes that she is also have some frustration with now navigating her phone and other technology. States that the patient insists that it is an issue with the device but seems very confused when navigating bee stings. Sleep concerns? no Eating/nutrition concerns? Eating well but exercising more Med side effects concerns? no Hallucinations? no Social work consult interest? no Wandering/getting lost concern? no Caregiver burnout concern? no Driving safety concern? 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 Rosacea History of Itp Lactose Intolerance Osteoporosis Stage 3a Chronic Kidney Disease (Hcc) Elevated Tsh Elevated Blood Sugar Fatigue Bilateral Carotid Artery Stenosis Living Will On File At Physician's Office Advance Directive Discussed With Patient Hydrocephalus in Diseases Classified Elsewhere (Hcc) Dementia of The Alzheimer's Type, With Late Onset, Uncomplicated ([facility]) Encounter for Medicare Annual Wellness Exam Balance Problems Risk for Falls Polyarticular Arthritis Medication Management Corns PAST MEDICAL HISTORY Diagnosis Date Advance directive discussed with patient 03/06/2022 Discussed 03/2022: up to date Balance problems 08/25/2023 Benign neoplasm of colon Bilateral carotid artery stenosis 01/08/2022 US: 07/2021 Allen 40-60% Chronic ITP (idiopathic thrombocytopenia) ([facility]) 06/10/2013 Dementia of the Alzheimer's type, with late onset, uncomplicated ([facility]) 05/08/2022 Diverticulosis of colon (without mention of hemorrhage) Dysmetabolic syndrome X 07/09/2005 Elevated blood sugar 07/23/2021 Elevated TSH 07/23/2021 Encounter for Medicare annual wellness exam 09/04/2022 Medicare Part B: Not able to find Last done: 09/04/2022 Family history of malignant neoplasm of gastrointestinal tract 01/09/2005 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/08/2012 Hydrocephalus in diseases classified elsewhere ([facility]) 04/01/2022 Internal hemorrhoids without mention of complication ITP (idiopathic thrombocytopenic purpura) History of episode in 1999 Lactose intolerance 02/23/2016 Living will on file at physician's office 03/06/2022 DPA: Marimar and Luma (daughter's) Mixed hyperlipidemia Osteoporosis 12/02/2018 Polyarticular arthritis 10/21/2023 Seeing Rheum Risk for falls 08/25/2023 Rosacea 09/14/2009 Stage 3a chronic kidney disease (HCC) 07/18/2020 Unspecified glaucoma(365.9) Medications: Reviewed rivastigmine tartrate (EXELON) 1.5 mg capsule Take 1 capsule in the morning and 2 capsules at night. hydrOXYchloroQUINE (PLAQUENIL) 200 mg tablet Take 1 tablet by mouth once daily. Per rheumatology fakhpy-bzvhsvzg-tveyshv (ZENPEP) 40,000-126,000- 168,000 unit delayed release capsule Take by mouth three times daily with meals. BIOTIN ORAL Take 10,000 mcg by mouth once daily. THERAPEUTIC MULTIVITAMIN TAB Take one(1) tablet daily. ALLERGIES Allergen Reactions Asa [Salicylates] Other: See Comments Hx of low plateletes Ibuprofen Hives Penicillins Other: See Comments passed out Aricept [Donepezil] Other: See Comments Nausea, vomiting and dizziness. FAMILY HISTORY Problem Relation Age of Onset Diabetes Mother feeding tube Stroke Father colon cancer Heart Brother aneurysm behind heart Aneurysm Brother stomach PAST SURGICAL HISTORY Procedure Laterality Date COLONOSCOPY FLX DX W/COLLJ SPEC WHEN PFRMD 03/20/05 Colonoscopy COLONOSCOPY FLX DX W/COLLJ SPEC WHEN PFRMD 08/29/10 COLONOSCOPY W/BIOPSY SINGLE/MULTIPLE 09-30-13 EGD TRANSORAL BIOPSY SINGLE/MULTIPLE 09-30-13 GASTROESOPHAG REFLX TEST W/TELEMTRY PH ELTRD 09-30-13 PH PROBE LAPS RPR PARAESPHGL HRNA INCL FUNDPLSTY W/O MESH 12-09-13 PAST SURGICAL HISTORY OF 1957 growth of ovary/growth off bowell/appendectomy PAST SURGICAL HISTORY OF 1967 tumor removed behind naval PAST SURGICAL HISTORY OF 05/2007 knee surgery PAST SURGICAL HISTORY OF 2011 bilateral cataract PAST SURGICAL HISTORY OF bilat great toe repair PAST SURGICAL HISTORY OF left shoulder repair, arthoscopy TONSILLECTOMY PRIMARY/SECONDARY <AGE 14 Tonsillectomy TOTAL ABDOMINAL HYSTERECT W/WO RMVL TUBE OVARY 1985 Hysterectomy, MOOSE Social Hx: @Alcohol Use: Not At Risk (10/14/2023) AUDIT-C Frequency of Alcohol Consumption: Not on file Average Number of Drinks: Patient does not drink Frequency of Binge Drinking: Never Tobacco Use: Low Risk (04/23/2024) Patient History Smoking Tobacco Use: Never Smokeless Tobacco Use: Never Passive Exposure: Not on file 05/19/24 1625 BP: 150/68 Pulse: 61 Modified MoCA: 10/19 Namin3 Attention: 6 Language: 0/2 Abstraction: 12 Orientation: 06/06 Neurologic Exam Cognitive and Language: Alert and answered questions appropriately. Language was fluent. Cranial Nerves: Extraocular movements were full with no diplopia or nystagmus. Facial strength was symmetric. 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 Sensory: Intact to light touch. Negative extinction to double simultaneous stimulation Coordination: Normal finger to nose and heel to luu testing bilaterally. Normal gait. Labs: Lab Results Component Value Date WBC 6.64 05/08/2024 HCT 41.3 05/08/2024 MCV 98.6 05/08/2024 PLT 220 05/08/2024 Lab Results Component Value Date HBA1C 5.1 04/17/2024 HBA1C 5.5 10/21/2023 HBA1C 5.1 03/08/2023 HBA1C 5.6 11/29/2016 HBA1C 5.7 12/03/2013 Total Cholesterol, Nonfasting Date Value Ref Range Status 04/17/2024 146 <200 mg/dL Final Comment: <200 mg/dL, Desirable 200-239 mg/dL, Borderline high >239 mg/dL, High HDL Cholesterol, Nonfasting Date Value Ref Range Status 04/17/2024 63 >39 mg/dL Final Comment: 40-59 mg/dL, Acceptable >59 mg/dL, High: Negative risk factor for coronary heart disease <40 mg/dL, Low: Positive risk factor for coronary heart disease LDL Cholesterol, Nonfasting Date Value Ref Range Status 04/17/2024 63 <100 mg/dL Final Comment: <100 mg/dL, Optimal 100-129 mg/dL, Near optimal/above optimal 130-159 mg/dL, Borderline high 160-189 mg/dL, High >189 mg/dL, Very high Secondary prevention optimal LDL Cholesterol levels are recommended to be < 70 mg/dL Triglycerides, Nonfasting Date Value Ref Range Status 04/17/2024 99 <150 mg/dL Final Comment: <150 mg/dL, Normal 150-199 mg/dL, Borderline high 200-499 mg/dL, High >499 mg/dL, Very high Lab Results Component Value Date TSH 1.990 04/17/2024 TSH 2.010 02/17/2020 Lab Results Component Value Date B12 1,534 07/23/2021 Results for orders placed or performed in visit on 05/08/24 COMPREHENSIVE METABOLIC PANEL Result Value Ref Range Protein, Total 6.9 6.3 - 8.0 g/dL Albumin 4.1 3.9 - 4.9 g/dL Calcium, Total 9.5 8.5 - 10.2 mg/dL Bilirubin, Total 0.4 0.2 - 1.3 mg/dL Alkaline Phosphatase 85 34 - 123 U/L AST 21 13 - 35 U/L ALT 11 7 - 38 U/L Glucose 143 (H) 74 - 99 mg/dL BUN 19 7 - 21 mg/dL Creatinine 0.95 0.58 - 0.96 mg/dL Sodium 141 136 - 144 mmol/L Potassium 4.3 3.7 - 5.1 mmol/L Chloride 105 98 - 107 mmol/L CO2 27 22 - 30 mmol/L Anion Gap 9 8 - 15 mmol/L Estimated Glomerular Filtration Rate 58 (L) >=60 mL/min/1.73m COMPLETE BLOOD COUNT AND DIFFERENTIAL Result Value Ref Range WBC 6.64 3.70 - 11.00 k/uL RBC 4.19 3.90 - 5.20 m/uL Hemoglobin 13.4 11.5 - 15.5 g/dL Hematocrit 41.3 36.0 - 46.0 % MCV 98.6 80.0 - 100.0 fL MCH 32.0 26.0 - 34.0 pg MCHC 32.4 30.5 - 36.0 g/dL RDW-CV 12.6 11.5 - 15.0 % Platelet Count 220 150 - 400 k/uL MPV 9.7 9.0 - 12.7 fL Neutrophils % 67.4 % Abs Neut 4.48 1.45 - 7.50 k/uL Lymphocytes % 18.2 % Abs Lymph 1.21 1.00 - 4.00 k/uL Monocytes % 9.5 % Abs [place] 0.63 <0.87 k/uL Eosinophils % 4.1 % Abs Eosin 0.27 <0.46 k/uL Basophils % 0.6 % Abs Baso 0.04 <0.11 k/uL Immature Granulocytes % 0.2 % Abs Immature Gran <0.03 <0.10 k/uL NRBC 0.0 /100 WBC Absolute nRBC <0.01 <0.01 k/uL Diff Type Auto Radiology: MRI Head/Brain - Last 2 Impressions MRI BRAIN WO IVCON Exam End: 04/01/2022 3:18 PM (Final result) Impression: IMPRESSION: 1. Age expected senescent changes. 2. No acute disease.... This note was dictated using [employer] speech recognition software and may contain some errors that were a result of the program not accurately transcribing what was dictated, despite efforts to make corrections. Note that unless urgent, test and MRI results will be discussed at next follow-up visit. PROMIS (Patient-Reported Outcomes Measurement Information System) is a set of person-centered measures that evaluates and monitors physical, social, and emotional health. It can be used with the general population and with individuals living with chronic conditions. PROMIS 10: PHYSICAL AND MENTAL HEALTH: 04/21/2024 PHQ-9 PHQ-2 Score 0 PHQ-9 Score 3 Medical Decision Making: Medical Decision Making Level: 1 - N/A I spent a total of 45 minutes on the date of the service which included preparing to see the patient, [id number] patient care, completing clinical documentation, obtaining and/or reviewing separately obtained history, performing a medically appropriate examination, counseling and educating the patient/family/caregiver, and ordering medications, tests, or procedures. documented in this encounter [facility] 04-23-2024 Instructions Carolyn Asher PA-C - 04/23/2024 1:47 PM EST Will stop crestor as of now. Follow up in 6 months for wellness. Labs prior. documented in this encounter [facility] 04-23-2024 Note HNO ID: [id number] Author: CAROLYN ASHER PA-C Service: ? Author Type: Physician Centrifugal Screen Tender Type: Progress Notes Filed: 04/23/2024 14:06 Note Text: Chief Complaint Patient presents with: 6 Month Exam HPI Guicho Martinez is a 88 year old female who presents here today for Chronic Medical Conditions.. Patient with hx of alzheimer's, hyperlipidemia, osteoporosis, polyarticular arthritis, and those as below. Patient overall doing okay. Past medical history, appointments, medications, allergies reviewed. Previous Medical History PAST MEDICAL HISTORY Diagnosis Date Advance directive discussed with patient 03/06/2022 Discussed 03/2022: up to date Balance problems 08/25/2023 Benign neoplasm of colon Bilateral carotid artery stenosis 01/08/2022 US: 07/2021 Allen 40-60% Chronic ITP (idiopathic thrombocytopenia) (HCC) 06/10/2013 Dementia of the Alzheimer's type, with late onset, uncomplicated ([facility]) 05/08/2022 Diverticulosis of colon (without mention of hemorrhage) Dysmetabolic syndrome X 07/09/2005 Elevated blood sugar 07/23/2021 Elevated TSH 07/23/2021 Encounter for Medicare annual wellness exam 09/04/2022 Medicare Part B: Not able to find Last done: 09/04/2022 Family history of malignant neoplasm of gastrointestinal tract 01/09/2005 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/08/2012 Hydrocephalus in diseases classified elsewhere ([facility]) 04/01/2022 Internal hemorrhoids without mention of complication ITP (idiopathic thrombocytopenic purpura) History of episode in 1999 Lactose intolerance 02/23/2016 Living will on file at physician's office 03/06/2022 DPA: Marimar and Luma (daughter's) Mixed hyperlipidemia Osteoporosis 12/02/2018 Polyarticular arthritis 10/21/2023 Seeing Rheum Risk for falls 08/25/2023 Rosacea 09/14/2009 Stage 3a chronic kidney disease (HCC) 07/18/2020 Unspecified glaucoma(365.9) Previous Surgical History PAST SURGICAL HISTORY Procedure Laterality Date COLONOSCOPY FLX DX W/COLLJ SPEC WHEN PFRMD 03/20/05 Colonoscopy COLONOSCOPY FLX DX W/COLLJ SPEC WHEN PFRMD 08/29/10 COLONOSCOPY W/BIOPSY SINGLE/MULTIPLE 09-30-13 EGD TRANSORAL BIOPSY SINGLE/MULTIPLE 09-30-13 GASTROESOPHAG REFLX TEST W/TELEMTRY PH ELTRD 09-30-13 PH PROBE LAPS RPR PARAESPHGL HRNA INCL FUNDPLSTY W/O MESH 12-09-13 PAST SURGICAL HISTORY OF 1957 growth of ovary/growth off bowell/appendectomy PAST SURGICAL HISTORY OF 1967 tumor removed behind naval PAST SURGICAL HISTORY OF 05/2007 knee surgery PAST SURGICAL HISTORY OF 2011 bilateral cataract PAST SURGICAL HISTORY OF bilat great toe repair PAST SURGICAL HISTORY OF left shoulder repair, arthoscopy TONSILLECTOMY PRIMARY/SECONDARY Tonsillectomy TOTAL ABDOMINAL HYSTERECT W/WO RMVL TUBE OVARY 1985 Hysterectomy, MOOSE Family History FAMILY HISTORY Problem Relation Age of Onset Diabetes Mother feeding tube Stroke Father colon cancer Heart Brother aneurysm behind heart Aneurysm Brother stomach Patient Allergies ALLERGIES Allergen Reactions Asa [Salicylates] Other: See Comments Hx of low plateletes Ibuprofen Hives Penicillins Other: See Comments passed out Aricept [Donepezil] Other: See Comments Nausea, vomiting and dizziness. Current Medications Current Outpatient Medications on File Prior to Visit Medication Sig rosuvastatin (CRESTOR) 5 mg tablet Take 1 tablet by mouth once daily. rivastigmine tartrate (EXELON) 1.5 mg capsule Take 1 capsule in the morning and 2 capsules at night. hydrOXYchloroQUINE (PLAQUENIL) 200 mg tablet Take 1 tablet by mouth once daily. Per rheumatology yttiot-brxssnqk-ldyboqs (ZENPEP) 40,000-126,000- 168,000 unit delayed release capsule Take by mouth three times daily with meals. BIOTIN ORAL Take 10,000 mcg by mouth once daily. THERAPEUTIC MULTIVITAMIN TAB Take one(1) tablet daily. No current facility-administered medications on file prior to visit. Social History Social History Tobacco Use Smoking status: Never Smokeless tobacco: Never Substance Use Topics Alcohol use: No Review of Symptoms REVIEW OF SYSTEMS GENERAL: No weight loss, malaise or fevers NECK: Negative for lumps, goiter, pain and significant neck swelling RESPIRATORY: Negative for cough, hemoptysis, wheezing, COPD, dyspnea or shortness of breath CARDIOVASCULAR: Negative for chest pain, leg swelling, hypertension, CHF or palpitations NEURO: No history of headaches, syncope, paralysis, seizures or tremors EXAM: BP 120/70 (BP Site: Left Arm, BP Position: Sitting, BP Cuff Size: Regular Adult) Pulse 62 Temp 36.4 ?C (97.5 ?F) Resp 16 Wt 42.2 kg (93 lb 2 oz) SpO2 100% BMI 16.76 kg/m? General Appearance: Well appearing, alert, in no acute distress, well-hydrated, well nourished. and Thin. Neck: Supple, no adenopathy; thyroid symmetric, normal size, no bruits. Lungs: Lungs clear to auscultation. No wheezing, rhonchi, ra (more content not included)... [facility] 04-23-2024 History of Present illness Narrative Chief Complaint Patient presents with: 6 Month Exam HPI Guicho Martinez is a 88 year old female who presents here today for Chronic Medical Conditions.. Patient with hx of alzheimer's, hyperlipidemia, osteoporosis, polyarticular arthritis, and those as below. Patient overall doing okay. Past medical history, appointments, medications, allergies reviewed. Previous Medical History PAST MEDICAL HISTORY Diagnosis Date Advance directive discussed with patient 03/06/2022 Discussed 03/2022: up to date Balance problems 08/25/2023 Benign neoplasm of colon Bilateral carotid artery stenosis 01/08/2022 US: 07/2021 Allen 40-60% Chronic ITP (idiopathic thrombocytopenia) ([facility]) 06/10/2013 Dementia of the Alzheimer's type, with late onset, uncomplicated ([facility]) 05/08/2022 Diverticulosis of colon (without mention of hemorrhage) Dysmetabolic syndrome X 07/09/2005 Elevated blood sugar 07/23/2021 Elevated TSH 07/23/2021 Encounter for Medicare annual wellness exam 09/04/2022 Medicare Part B: Not able to find Last done: 09/04/2022 Family history of malignant neoplasm of gastrointestinal tract 01/09/2005 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/08/2012 Hydrocephalus in diseases classified elsewhere (HCC) 04/01/2022 Internal hemorrhoids without mention of complication ITP (idiopathic thrombocytopenic purpura) History of episode in 1999 Lactose intolerance 02/23/2016 Living will on file at physician's office 03/06/2022 DPA: Marimar and Luma (daughter's) Mixed hyperlipidemia Osteoporosis 12/02/2018 Polyarticular arthritis 10/21/2023 Seeing Rheum Risk for falls 08/25/2023 Rosacea 09/14/2009 Stage 3a chronic kidney disease (HCC) 07/18/2020 Unspecified glaucoma(365.9) Previous Surgical History PAST SURGICAL HISTORY Procedure Laterality Date COLONOSCOPY FLX DX W/COLLJ SPEC WHEN PFRMD 03/20/05 Colonoscopy COLONOSCOPY FLX DX W/COLLJ SPEC WHEN PFRMD 08/29/10 COLONOSCOPY W/BIOPSY SINGLE/MULTIPLE 09-30-13 EGD TRANSORAL BIOPSY SINGLE/MULTIPLE 09-30-13 GASTROESOPHAG REFLX TEST W/TELEMTRY PH ELTRD 09-30-13 PH PROBE LAPS RPR PARAESPHGL HRNA INCL FUNDPLSTY W/O MESH 12-09-13 PAST SURGICAL HISTORY OF 1957 growth of ovary/growth off bowell/appendectomy PAST SURGICAL HISTORY OF 1967 tumor removed behind naval PAST SURGICAL HISTORY OF 05/2007 knee surgery PAST SURGICAL HISTORY OF 2011 bilateral cataract PAST SURGICAL HISTORY OF bilat great toe repair PAST SURGICAL HISTORY OF left shoulder repair, arthoscopy TONSILLECTOMY PRIMARY/SECONDARY <AGE 14 Tonsillectomy TOTAL ABDOMINAL HYSTERECT W/WO RMVL TUBE OVARY 1984 Hysterectomy, MOOSE Family History FAMILY HISTORY Problem Relation Age of Onset Diabetes Mother feeding tube Stroke Father colon cancer Heart Brother aneurysm behind heart Aneurysm Brother stomach Patient Allergies ALLERGIES Allergen Reactions Asa [Salicylates] Other: See Comments Hx of low plateletes Ibuprofen Hives Penicillins Other: See Comments passed out Aricept [Donepezil] Other: See Comments Nausea, vomiting and dizziness. Current Medications Current Outpatient Medications on File Prior to Visit Medication Sig rosuvastatin (CRESTOR) 5 mg tablet Take 1 tablet by mouth once daily. rivastigmine tartrate (EXELON) 1.5 mg capsule Take 1 capsule in the morning and 2 capsules at night. hydrOXYchloroQUINE (PLAQUENIL) 200 mg tablet Take 1 tablet by mouth once daily. Per rheumatology fudqcj-awfgkgdu-jwyenbf (ZENPEP) 40,000-126,000- 168,000 unit delayed release capsule Take by mouth three times daily with meals. BIOTIN ORAL Take 10,000 mcg by mouth once daily. THERAPEUTIC MULTIVITAMIN TAB Take one(1) tablet daily. No current facility-administered medications on file prior to visit. Social History Social History Tobacco Use Smoking status: Never Smokeless tobacco: Never Substance Use Topics Alcohol use: No Review of Symptoms REVIEW OF SYSTEMS GENERAL: No weight loss, malaise or fevers NECK: Negative for lumps, goiter, pain and significant neck swelling RESPIRATORY: Negative for cough, hemoptysis, wheezing, COPD, dyspnea or shortness of breath CARDIOVASCULAR: Negative for chest pain, leg swelling, hypertension, CHF or palpitations NEURO: No history of headaches, syncope, paralysis, seizures or tremors EXAM: BP 120/70 (BP Site: Left Arm, BP Position: Sitting, BP Cuff Size: Regular Adult) Pulse 62 Temp 36.4 C (97.5 F) Resp 16 Wt 42.2 kg (93 lb 2 oz) SpO2 100% BMI 16.76 kg/m General Appearance: Well appearing, alert, in no acute distress, well-hydrated, well nourished. and Thin. Neck: Supple, no adenopathy; thyroid symmetric, normal size, no bruits. Lungs: Lungs clear to auscultation. No wheezing, rhonchi, rales.. Heart: RRR without murmur, gallop, or rubs. No ectopy. Extremities: No deformities, edema, skin discoloration, clubbing or cyanosis. Good capillary refill. . Peripheral Pulses: Normal. Health Maintenance List Covid-19 Vaccine() due on 11/02/2023 Advance Directive Discussion due on 03/03/2024 Bone Density Screening due on 10/01/2024 Diabetes Screening due on 04/17/2027 DTaP,Tdap,Td Vaccine(4 - Td or Tdap) due on 04/19/2033 Influenza Vaccine Completed RSV Vaccine Completed Shingrix Vaccine Completed Pneumococcal Vaccine: 50+ Completed Data reviewed Latest Ref Rng 04/17/2024 Protein, Total 6.3 - 8.0 g/dL 6.9 Albumin 3.9 - 4.9 g/dL 4.3 Calcium 8.5 - 10.2 mg/dL 9.4 Bilirubin, Total 0.2 - 1.3 mg/dL 0.7 Alkaline Phosphatase 34 - 123 U/L 90 AST 13 - 35 U/L 23 ALT 7 - 38 U/L 16 Glucose 74 - 99 mg/dL 91 BUN 7 - 21 mg/dL 17 Creatinine 0.58 - 0.96 mg/dL 0.95 Sodium 136 - 144 mmol/L 141 Potassium 3.7 - 5.1 mmol/L 4.2 Chloride 98 - 107 mmol/L 105 CO2 22 - 30 mmol/L 27 Anion Gap 8 - 15 mmol/L 9 eGFR >=60 mL/min/1.73m 58 (L) Total Cholesterol, Nonfasting <200 mg/dL 146 Triglycerides, Nonfasting <150 mg/dL 99 HDL Cholesterol, Nonfasting >39 mg/dL 63 LDL Cholesterol, Nonfasting <100 mg/dL 63 Non HDL Cholesterol, Nonfasting <130 mg/dL 83 VLDL Cholesterol, Nonfasting <30 mg/dL 20 Total Chol/HDL Ratio, Nonfasting <5.10 mg/dL 2.32 LDL/HDL Ratio, Nonfasting <2.54 mg/dL 1.00 Hemoglobin A1C 4.3 - 5.6 % 5.1 Estimated Average Glucose mg/dL 100 TSH 0.270 - 4.200 mIU/L 1.990 Legend: (L) Low ASSESSMENT/PLAN: 1. Mixed hyperlipidemia - ICD9: 272.2, ICD10: E78.2 (primary diagnosis) - Controlled - given age and health history, reasonable to trial stopping crestor and see how cholesterol is at her follow up appointment in 6 months. - LIPID PANEL, NONFASTING 2. Stage 3a chronic kidney disease (HCC) - ICD9: 585.3, ICD10: N18.31 - eGFR: 58 Stable - Counseled on avoiding NSAIDs, adequate hydration - COMPREHENSIVE METABOLIC PANEL - COMPLETE BLOOD COUNT AND DIFFERENTIAL 3. Osteoporosis, unspecified osteoporosis type, unspecified pathological fracture presence - ICD9: 733.00, ICD10: M81.0 - Reviewed the need for Calcium and Vitamin D supplements and weight bearing exercise as tolerated - COMPREHENSIVE METABOLIC PANEL - VITAMIN D 25 HYDROXY 4. Dementia of the Alzheimer's type, with late onset, uncomplicated (HCC) - ICD9: 331.0, 294.10, ICD10: G30.1, F02.80 Cont with neuro 5. Advance directive discussed with patient - ICD9: V65.49, ICD10: Z71.89 Up to date 6. Elevated blood sugar - ICD9: 790.29, ICD10: R73.9 - HEMOGLOBIN A1C 7. Elevated TSH - ICD9: 794.5, ICD10: R79.89 - THYROID STIMULATING HORMONE 8. Hydrocephalus in diseases classified elsewhere (HCC) - ICD9: 331.7, ICD10: G91.4 Cont with neuro 9. Corns - ICD9: 700, ICD10: L84 Discussed podiatry consult if worsening. Continue home management for now. Carolyn Asher PA-C documented in this encounter [facility] 03-30-2024 Note HNO ID: [id number] Author: CAROLYN ASHER PA-C Service: ? Author Type: Physician Centrifugal Screen Tender Type: Progress Notes Filed: 03/30/2024 13:04 Note Text: Chief Complaint Patient presents with: Discussion HPI Guicho Martinez is a 88 year old female who presents here today for discussion on assisted living. Patient with hx as below. Has been apprehensive about going into assisted living but daughters feel that they can no longer provide all the necessary care to their mother. Past medical history, appointments, medications, allergies reviewed. Previous Medical History PAST MEDICAL HISTORY Diagnosis Date Advance directive discussed with patient 03/06/2022 Discussed 03/2022: up to date Balance problems 08/25/2023 Benign neoplasm of colon Bilateral carotid artery stenosis 01/08/2022 US: 07/2021 [place] 40-60% Chronic ITP (idiopathic thrombocytopenia) ([facility]) 06/10/2013 Dementia of the Alzheimer's type, with late onset, uncomplicated ([facility]) 05/08/2022 Diverticulosis of colon (without mention of hemorrhage) Dysmetabolic syndrome X 07/09/2005 Elevated blood sugar 07/23/2021 Elevated TSH 07/23/2021 Encounter for Medicare annual wellness exam 09/04/2022 Medicare Part B: Not able to find Last done: 09/04/2022 Family history of malignant neoplasm of gastrointestinal tract 01/09/2005 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/08/2012 Hydrocephalus in diseases classified elsewhere ([facility]) 04/01/2022 Internal hemorrhoids without mention of complication ITP (idiopathic thrombocytopenic purpura) History of episode in 1999 Lactose intolerance 02/23/2016 Living will on file at physician's office 03/06/2022 DPA: Mitchell (daughter's) Mixed hyperlipidemia Osteoporosis 12/02/2018 Polyarticular arthritis 10/21/2023 Seeing Rheum Risk for falls 08/25/2023 Rosacea 09/14/2009 Stage 3a chronic kidney disease (HCC) 07/18/2020 Unspecified glaucoma(365.9) Previous Surgical History PAST SURGICAL HISTORY Procedure Laterality Date COLONOSCOPY FLX DX W/COLLJ SPEC WHEN PFRMD 03/20/05 Colonoscopy COLONOSCOPY FLX DX W/COLLJ SPEC WHEN PFRMD 08/29/10 COLONOSCOPY W/BIOPSY SINGLE/MULTIPLE 09-30-13 EGD TRANSORAL BIOPSY SINGLE/MULTIPLE 09-30-13 GASTROESOPHAG REFLX TEST W/TELEMTRY PH ELTRD 09-30-13 PH PROBE LAPS RPR PARAESPHGL HRNA INCL FUNDPLSTY W/O MESH 12-09-13 PAST SURGICAL HISTORY OF 1957 growth of ovary/growth off bowell/appendectomy PAST SURGICAL HISTORY OF 1967 tumor removed behind naval PAST SURGICAL HISTORY OF 05/2007 knee surgery PAST SURGICAL HISTORY OF 2011 bilateral cataract PAST SURGICAL HISTORY OF bilat great toe repair PAST SURGICAL HISTORY OF left shoulder repair, arthoscopy TONSILLECTOMY PRIMARY/SECONDARY Tonsillectomy TOTAL ABDOMINAL HYSTERECT W/WO RMVL TUBE OVARY 1984 Hysterectomy, MOOSE Family History FAMILY HISTORY Problem Relation Age of Onset Diabetes Mother feeding tube Stroke Father colon cancer Heart Brother aneurysm behind heart Aneurysm Brother stomach Patient Allergies ALLERGIES Allergen Reactions Asa [Salicylates] Other: See Comments Hx of low plateletes Ibuprofen Hives Penicillins Other: See Comments passed out Aricept [Donepezil] Other: See Comments Nausea, vomiting and dizziness. Current Medications Current Outpatient Medications on File Prior to Visit Medication Sig rivastigmine tartrate (EXELON) 1.5 mg capsule Take 1 capsule in the morning and 2 capsules at night. hydrOXYchloroQUINE (PLAQUENIL) 200 mg tablet Take 1 tablet by mouth once daily. Per rheumatology doeugy-ifctcyea-pykszqd (ZENPEP) 40,000-126,000- 168,000 unit delayed release capsule Take by mouth three times daily with meals. BIOTIN ORAL Take 10,000 mcg by mouth once daily. THERAPEUTIC MULTIVITAMIN TAB Take one(1) tablet daily. No current facility-administered medications on file prior to visit. Social History Social History Tobacco Use Smoking status: Never Smokeless tobacco: Never Substance Use Topics Alcohol use: No Review of Symptoms REVIEW OF SYSTEMS GENERAL: No weight loss, malaise or fevers EXAM: BP 137/68 (BP Site: Right Arm, BP Position: Sitting, BP Cuff Size: Regular Adult) Pulse 67 Temp 36.3 ?C (97.4 ?F) Resp 16 Wt 42.8 kg (94 lb 4 oz) SpO2 99% BMI 16.96 kg/m? General Appearance: Well appearing, alert, in no acute distress, well-hydrated, well nourished.. Health Maintenance List Influenza Vaccine(1) due on 11/02/2023 Covid-19 Vaccine( season) due on 11/02/2023 Advance Directive Discussion due on 03/03/2024 Bone Density Screening due on 10/01/2024 Diabetes Screening due on 11/10/2026 DTaP,Tdap,Td Vaccine(4 - Td or Tdap) due on 04/19/2033 RSV Vaccine Completed Shingrix Vaccine Completed Pneumococcal Vaccine: 50+ Completed ASSESSMENT/PLAN: 1. Dementia of the Alzheimer's type, with late onset, uncomplicated (HCC) - ICD9: 331.0, (more content not included)... [facility] 03-30-2024 History of Present illness Narrative Chief Complaint Patient presents with: Discussion HPI Guicho Martinez is a 88 year old female who presents here today for discussion on assisted living. Patient with hx as below. Has been apprehensive about going into assisted living but daughters feel that they can no longer provide all the necessary care to their mother. Past medical history, appointments, medications, allergies reviewed. Previous Medical History PAST MEDICAL HISTORY Diagnosis Date Advance directive discussed with patient 03/06/2022 Discussed 03/2022: up to date Balance problems 08/25/2023 Benign neoplasm of colon Bilateral carotid artery stenosis 01/08/2022 US: 07/2021 Allen 40-60% Chronic ITP (idiopathic thrombocytopenia) (HCC) 06/10/2013 Dementia of the Alzheimer's type, with late onset, uncomplicated (HCC) 05/08/2022 Diverticulosis of colon (without mention of hemorrhage) Dysmetabolic syndrome X 07/09/2005 Elevated blood sugar 07/23/2021 Elevated TSH 07/23/2021 Encounter for Medicare annual wellness exam 09/04/2022 Medicare Part B: Not able to find Last done: 09/04/2022 Family history of malignant neoplasm of gastrointestinal tract 01/09/2005 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/08/2012 Hydrocephalus in diseases classified elsewhere (HCC) 04/01/2022 Internal hemorrhoids without mention of complication ITP (idiopathic thrombocytopenic purpura) History of episode in 1999 Lactose intolerance 02/23/2016 Living will on file at physician's office 03/06/2022 DPA: Marimar and Luma (daughter's) Mixed hyperlipidemia Osteoporosis 12/02/2018 Polyarticular arthritis 10/21/2023 Seeing Rheum Risk for falls 08/25/2023 Rosacea 09/14/2009 Stage 3a chronic kidney disease (HCC) 07/18/2020 Unspecified glaucoma(365.9) Previous Surgical History PAST SURGICAL HISTORY Procedure Laterality Date COLONOSCOPY FLX DX W/COLLJ SPEC WHEN PFRMD 03/20/05 Colonoscopy COLONOSCOPY FLX DX W/COLLJ SPEC WHEN PFRMD 08/29/10 COLONOSCOPY W/BIOPSY SINGLE/MULTIPLE 09-30-13 EGD TRANSORAL BIOPSY SINGLE/MULTIPLE 09-30-13 GASTROESOPHAG REFLX TEST W/TELEMTRY PH ELTRD 09-30-13 PH PROBE LAPS RPR PARAESPHGL HRNA INCL FUNDPLSTY W/O MESH 12-09-13 PAST SURGICAL HISTORY OF 1957 growth of ovary/growth off bowell/appendectomy PAST SURGICAL HISTORY OF 1967 tumor removed behind naval PAST SURGICAL HISTORY OF 05/2007 knee surgery PAST SURGICAL HISTORY OF 2011 bilateral cataract PAST SURGICAL HISTORY OF bilat great toe repair PAST SURGICAL HISTORY OF left shoulder repair, arthoscopy TONSILLECTOMY PRIMARY/SECONDARY <AGE 14 Tonsillectomy TOTAL ABDOMINAL HYSTERECT W/WO RMVL TUBE OVARY 1984 Hysterectomy, MOOSE Family History FAMILY HISTORY Problem Relation Age of Onset Diabetes Mother feeding tube Stroke Father colon cancer Heart Brother aneurysm behind heart Aneurysm Brother stomach Patient Allergies ALLERGIES Allergen Reactions Asa [Salicylates] Other: See Comments Hx of low plateletes Ibuprofen Hives Penicillins Other: See Comments passed out Aricept [Donepezil] Other: See Comments Nausea, vomiting and dizziness. Current Medications Current Outpatient Medications on File Prior to Visit Medication Sig rivastigmine tartrate (EXELON) 1.5 mg capsule Take 1 capsule in the morning and 2 capsules at night. hydrOXYchloroQUINE (PLAQUENIL) 200 mg tablet Take 1 tablet by mouth once daily. Per rheumatology wtpxzw-sgwlrvia-yoqgccu (ZENPEP) 40,000-126,000- 168,000 unit delayed release capsule Take by mouth three times daily with meals. BIOTIN ORAL Take 10,000 mcg by mouth once daily. THERAPEUTIC MULTIVITAMIN TAB Take one(1) tablet daily. No current facility-administered medications on file prior to visit. Social History Social History Tobacco Use Smoking status: Never Smokeless tobacco: Never Substance Use Topics Alcohol use: No Review of Symptoms REVIEW OF SYSTEMS GENERAL: No weight loss, malaise or fevers EXAM: BP 137/68 (BP Site: Right Arm, BP Position: Sitting, BP Cuff Size: Regular Adult) Pulse 67 Temp 36.3 C (97.4 F) Resp 16 Wt 42.8 kg (94 lb 4 oz) SpO2 99% BMI 16.96 kg/m General Appearance: Well appearing, alert, in no acute distress, well-hydrated, well nourished.. Health Maintenance List Influenza Vaccine(1) due on 11/02/2023 Covid-19 Vaccine( season) due on 11/02/2023 Advance Directive Discussion due on 03/03/2024 Bone Density Screening due on 10/01/2024 Diabetes Screening due on 11/10/2026 DTaP,Tdap,Td Vaccine(4 - Td or Tdap) due on 04/19/2033 RSV Vaccine Completed Shingrix Vaccine Completed Pneumococcal Vaccine: 50+ Completed ASSESSMENT/PLAN: 1. Dementia of the Alzheimer's type, with late onset, uncomplicated (HCC) - ICD9: 331.0, 294.10, ICD10: G30.1, F02.80 Conversation had with patient. Follow up as scheduled. Carolyn Asher PA-C I spent a total of 40 minutes on the date of the service which included preparing to see the patient, kdfu-[id number] patient care, completing clinical documentation, obtaining and/or reviewing separately obtained history, counseling and educating the patient/family/caregiver, and communicating results to the patient/family/caregiver. documented in this encounter [facility] 03-29-2024 Telephone encounter Note Started PA on [employer], pending now. Will watch for questions. Hugo Randle LPN March 29, 2024 10:06 AM [facility] 03-29-2024 Miscellaneous Notes Started PA on [employer], pending now. Will watch for questions. Hugo Randle LPN March 29, 2024 10:06 AM Pt's daughter calls to report [employer] states [employer] needs a prior authorization. Daughter reports pt will be out of medication on Friday. [employer] was supposed to fax request to office but daughter wanted to make sure office is aware so this can be processed. Kanwal Alvarez LPN documented in this encounter [facility] 03-29-2024 Telephone encounter Note Pt's daughter calls to report [employer] states [employer] needs a prior authorization. Daughter reports pt will be out of medication on Friday. [employer] was supposed to fax request to office but daughter wanted to make sure office is aware so this can be processed. Kanwal Alvarez LPN [facility] 03-08-2024 Telephone encounter Note Prescription Refill Information The patient has been identified by name and date of : Yes Caregiver verified no other encounters exist for this prescription request: Yes Caregiver confirmed with patient/requestor that no other refills are due, in the near future, with this provider at this time: Yes The last office visit in the department: 11/11/2023 PLAN: No changes to medications Increase calorie intake (ensure drinks, high calorie foods) Follow up in 4-5 months Does the patient have a future office visit with this provider/department: Yes, 05/19/2024 Requested Prescriptions Pending Prescriptions Disp Refills rivastigmine tartrate (EXELON) 1.5 mg capsule 90 capsule 2 Sig: Take 1 capsule in the morning and 2 capsules at night. SALTY Coleman March 08, 2024 9:29 AM [facility] 03-08-2024 Miscellaneous Notes Prescription Refill Information The patient has been identified by name and date of : Yes Caregiver verified no other encounters exist for this prescription request: Yes Caregiver confirmed with patient/requestor that no other refills are due, in the near future, with this provider at this time: Yes The last office visit in the department: 11/11/2023 PLAN: No changes to medications Increase calorie intake (ensure drinks, high calorie foods) Follow up in 4-5 months Does the patient have a future office visit with this provider/department: Yes, 05/19/2024 Requested Prescriptions Pending Prescriptions Disp Refills rivastigmine tartrate (EXELON) 1.5 mg capsule 90 capsule 2 Sig: Take 1 capsule in the morning and 2 capsules at night. SALTY Coleman March 08, 2024 9:29 AM documented in this encounter [facility] 03-04-2024 History of Present illness Narrative Chief Complaint No chief complaint on file. AMRIT Martinez is a 88 year old female who presents here today for Above Complaints.. Patient presents for ER follow up for mechanical fall with facial laceration. Patient received 4 simple sutures to right eyebrow. Patient had xray of knee and brain and cervical ct which were negative. Past medical history, appointments, medications, allergies reviewed. Previous Medical History PAST MEDICAL HISTORY Diagnosis Date Advance directive discussed with patient 03/06/2022 Discussed 03/2022: up to date Balance problems 08/25/2023 Benign neoplasm of colon Bilateral carotid artery stenosis 01/08/2022 US: 07/2021 Allen 40-60% Chronic ITP (idiopathic thrombocytopenia) ([facility]) 06/10/2013 Dementia of the Alzheimer's type, with late onset, uncomplicated ([facility]) 05/08/2022 Diverticulosis of colon (without mention of hemorrhage) Dysmetabolic syndrome X 07/09/2005 Elevated blood sugar 07/23/2021 Elevated TSH 07/23/2021 Encounter for Medicare annual wellness exam 09/04/2022 Medicare Part B: Not able to find Last done: 09/04/2022 Family history of malignant neoplasm of gastrointestinal tract 01/09/2005 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/08/2012 Hydrocephalus in diseases classified elsewhere ([facility]) 04/01/2022 Internal hemorrhoids without mention of complication ITP (idiopathic thrombocytopenic purpura) History of episode in 1999 Lactose intolerance 02/23/2016 Living will on file at physician's office 03/06/2022 DPA: Mitchell (daughter's) Mixed hyperlipidemia Osteoporosis 12/02/2018 Polyarticular arthritis 10/21/2023 Seeing Rheum Risk for falls 08/25/2023 Rosacea 09/14/2009 Stage 3a chronic kidney disease (HCC) 07/18/2020 Unspecified glaucoma(365.9) Previous Surgical History PAST SURGICAL HISTORY Procedure Laterality Date COLONOSCOPY FLX DX W/COLLJ SPEC WHEN PFRMD 03/20/05 Colonoscopy COLONOSCOPY FLX DX W/COLLJ SPEC WHEN PFRMD 08/29/10 COLONOSCOPY W/BIOPSY SINGLE/MULTIPLE 09-30-13 EGD TRANSORAL BIOPSY SINGLE/MULTIPLE 09-30-13 GASTROESOPHAG REFLX TEST W/TELEMTRY PH ELTRD 09-30-13 PH PROBE LAPS RPR PARAESPHGL HRNA INCL FUNDPLSTY W/O MESH 12-09-13 PAST SURGICAL HISTORY OF 1957 growth of ovary/growth off bowell/appendectomy PAST SURGICAL HISTORY OF 1967 tumor removed behind naval PAST SURGICAL HISTORY OF 05/2007 knee surgery PAST SURGICAL HISTORY OF 2011 bilateral cataract PAST SURGICAL HISTORY OF bilat great toe repair PAST SURGICAL HISTORY OF left shoulder repair, arthoscopy TONSILLECTOMY PRIMARY/SECONDARY <AGE 14 Tonsillectomy TOTAL ABDOMINAL HYSTERECT W/WO RMVL TUBE OVARY 1985 Hysterectomy, MOOSE Family History FAMILY HISTORY Problem Relation Age of Onset Diabetes Mother feeding tube Stroke Father colon cancer Heart Brother aneurysm behind heart Aneurysm Brother stomach Patient Allergies ALLERGIES Allergen Reactions Asa [Salicylates] Other: See Comments Hx of low plateletes Ibuprofen Hives Penicillins Other: See Comments passed out Aricept [Donepezil] Other: See Comments Nausea, vomiting and dizziness. Current Medications Current Outpatient Medications on File Prior to Visit Medication Sig rivastigmine tartrate (EXELON) 1.5 mg capsule Take 1 capsule in the morning and 2 capsules at night. rosuvastatin (CRESTOR) 5 mg tablet Take 1 tablet by mouth once daily. hydrOXYchloroQUINE (PLAQUENIL) 200 mg tablet Take 1 tablet by mouth once daily. Per rheumatology evhgdy-bkgbyoup-ezzrmec (ZENPEP) 40,000-126,000- 168,000 unit delayed release capsule Take by mouth three times daily with meals. BIOTIN ORAL Take 10,000 mcg by mouth once daily. THERAPEUTIC MULTIVITAMIN TAB Take one(1) tablet daily. No current facility-administered medications on file prior to visit. Social History Social History Tobacco Use Smoking status: Never Smokeless tobacco: Never Substance Use Topics Alcohol use: No Review of Symptoms REVIEW OF SYSTEMS SEE HPI EXAM: There were no vitals taken for this visit. General Appearance: Well appearing, alert, in no acute distress, well-hydrated, well nourished.. Skin: Positives: 2.5cm laceration right upper eyebrow, well approximated without redness, warmth or drainage. 4 sutures noted. Head: Facial tenderness, Negative findings: Hair normal in quality, distribution, and texture No scalp lesions present Skull size and contour normal, Positive findings: ecchymosis to bilateral eyes and cheekbones. Health Maintenance List Influenza Vaccine(1) due on 11/02/2023 Covid-19 Vaccine( season) due on 11/02/2023 Advance Directive Discussion due on 03/03/2024 Bone Density Screening due on 10/01/2024 Diabetes Screening due on 11/10/2026 DTaP,Tdap,Td Vaccine(4 - Td or Tdap) due on 04/19/2033 RSV Vaccine Completed Shingrix Vaccine Completed Pneumococcal Vaccine: 50+ Completed ASSESSMENT/PLAN: 1. Facial laceration, subsequent encounter - ICD9: V58.89, 873.40, ICD10: S01.81XD (primary diagnosis) - well approximated. 2. Visit for suture removal - ICD9: V58.32, ICD10: Z48.02 -4 simple sutures removed, patient tolerated well. Small amount of blood noted. Bandaid applied to area. Fauzia Wagner APRN.[employer]ENDER documented in this encounter [facility] 03-04-2024 Note HNO ID: [id number] Author: FAUZIA WAGNER APRN.[employer] F[employer]NACE TENDER Service: ? Author Type: Nurse Practitioner Type: Progress Notes Filed: 03/04/2024 17:50 Note Text: Chief Complaint No chief complaint on file. HPI Guicho Martinez is a 88 year old female who presents here today for Above Complaints.. Patient presents for ER follow up for mechanical fall with facial laceration. Patient received 4 simple sutures to right eyebrow. Patient had xray of knee and brain and cervical ct which were negative. Past medical history, appointments, medications, allergies reviewed. Previous Medical History PAST MEDICAL HISTORY Diagnosis Date Advance directive discussed with patient 03/06/2022 Discussed 03/2022: up to date Balance problems 08/25/2023 Benign neoplasm of colon Bilateral carotid artery stenosis 01/08/2022 US: 07/2021 Allen 40-60% Chronic ITP (idiopathic thrombocytopenia) ([facility]) 06/10/2013 Dementia of the Alzheimer's type, with late onset, uncomplicated ([facility]) 05/08/2022 Diverticulosis of colon (without mention of hemorrhage) Dysmetabolic syndrome X 07/09/2005 Elevated blood sugar 07/23/2021 Elevated TSH 07/23/2021 Encounter for Medicare annual wellness exam 09/04/2022 Medicare Part B: Not able to find Last done: 09/04/2022 Family history of malignant neoplasm of gastrointestinal tract 01/09/2005 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/08/2012 Hydrocephalus in diseases classified elsewhere ([facility]) 04/01/2022 Internal hemorrhoids without mention of complication ITP (idiopathic thrombocytopenic purpura) History of episode in 1999 Lactose intolerance 02/23/2016 Living will on file at physician's office 03/06/2022 DPA: Marimar and Luma (daughter's) Mixed hyperlipidemia Osteoporosis 12/02/2018 Polyarticular arthritis 10/21/2023 Seeing Rheum Risk for falls 08/25/2023 Rosacea 09/14/2009 Stage 3a chronic kidney disease (HCC) 07/18/2020 Unspecified glaucoma(365.9) Previous Surgical History PAST SURGICAL HISTORY Procedure Laterality Date COLONOSCOPY FLX DX W/COLLJ SPEC WHEN PFRMD 03/20/05 Colonoscopy COLONOSCOPY FLX DX W/COLLJ SPEC WHEN PFRMD 08/29/10 COLONOSCOPY W/BIOPSY SINGLE/MULTIPLE 09-30-13 EGD TRANSORAL BIOPSY SINGLE/MULTIPLE 09-30-13 GASTROESOPHAG REFLX TEST W/TELEMTRY PH ELTRD 09-30-13 PH PROBE LAPS RPR PARAESPHGL HRNA INCL FUNDPLSTY W/O MESH 12-09-13 PAST SURGICAL HISTORY OF 1957 growth of ovary/growth off bowell/appendectomy PAST SURGICAL HISTORY OF 1967 tumor removed behind naval PAST SURGICAL HISTORY OF 05/2007 knee surgery PAST SURGICAL HISTORY OF 2011 bilateral cataract PAST SURGICAL HISTORY OF bilat great toe repair PAST SURGICAL HISTORY OF left shoulder repair, arthoscopy TONSILLECTOMY PRIMARY/SECONDARY Tonsillectomy TOTAL ABDOMINAL HYSTERECT W/WO RMVL TUBE OVARY 1984 Hysterectomy, MOOSE Family History FAMILY HISTORY Problem Relation Age of Onset Diabetes Mother feeding tube Stroke Father colon cancer Heart Brother aneurysm behind heart Aneurysm Brother stomach Patient Allergies ALLERGIES Allergen Reactions Asa [Salicylates] Other: See Comments Hx of low plateletes Ibuprofen Hives Penicillins Other: See Comments passed out Aricept [Donepezil] Other: See Comments Nausea, vomiting and dizziness. Current Medications Current Outpatient Medications on File Prior to Visit Medication Sig rivastigmine tartrate (EXELON) 1.5 mg capsule Take 1 capsule in the morning and 2 capsules at night. rosuvastatin (CRESTOR) 5 mg tablet Take 1 tablet by mouth once daily. hydrOXYchloroQUINE (PLAQUENIL) 200 mg tablet Take 1 tablet by mouth once daily. Per rheumatology milyeo-nwsbqwke-jkcevzi (ZENPEP) 40,000-126,000- 168,000 unit delayed release capsule Take by mouth three times daily with meals. BIOTIN ORAL Take 10,000 mcg by mouth once daily. THERAPEUTIC MULTIVITAMIN TAB Take one(1) tablet daily. No current facility-administered medications on file prior to visit. Social History Social History Tobacco Use Smoking status: Never Smokeless tobacco: Never Substance Use Topics Alcohol use: No Review of Symptoms REVIEW OF SYSTEMS SEE HPI EXAM: There were no vitals taken for this visit. General Appearance: Well appearing, alert, in no acute distress, well-hydrated, well nourished.. Skin: Positives: 2.5cm laceration right upper eyebrow, well approximated without redness, warmth or drainage. 4 sutures noted. Head: Facial tenderness, Negative findings: Hair normal in quality, distribution, and texture No scalp lesions present Skull size and contour normal, Positive findings: ecchymosis to bilateral eyes and cheekbones. Health Maintenance List Influenza Vaccine(1) due on 11/02/2023 Covid-19 Vaccine( season) due on 11/02/2023 Advance Directive Discussion due on 03/03/2024 Bone Density Screening due on 10/01/2024 Diabetes Screening due on 11/10/2026 (more content not included)... [facility] 01-16-2024 Telephone encounter Note Prescription Refill Information The patient has been identified by name and date of : Yes Caregiver verified no other encounters exist for this prescription request: Yes Caregiver confirmed with patient/requestor that no other refills are due, in the near future, with this provider at this time: No The last office visit in the department: 11/11/2023 Does the patient have a future office visit with this provider/department: No Requested Prescriptions Pending Prescriptions Disp Refills rivastigmine tartrate (EXELON) 1.5 mg capsule Sig: Take 1 capsule in the morning and 2 capsules at night. Cyndi Intreiano LPN January 16, 2024 7:32 AM [facility] 01-16-2024 Miscellaneous Notes Prescription Refill Information The patient has been identified by name and date of : Yes Caregiver verified no other encounters exist for this prescription request: Yes Caregiver confirmed with patient/requestor that no other refills are due, in the near future, with this provider at this time: No The last office visit in the department: 11/11/2023 Does the patient have a future office visit with this provider/department: No Requested Prescriptions Pending Prescriptions Disp Refills rivastigmine tartrate (EXELON) 1.5 mg capsule Sig: Take 1 capsule in the morning and 2 capsules at night. Cyndi Interiano LPN January 16, 2024 7:32 AM documented in this encounter [facility] 12-08-2023 Telephone encounter Note The following approved medication requests have been transmitted electronically. Requested Prescriptions Signed Prescriptions Disp Refills rosuvastatin (CRESTOR) 5 mg tablet 90 tablet 1 Sig: Take 1 tablet by mouth once daily. Authorizing Provider: BAIRON TORRES MD [facility] 12-08-2023 Miscellaneous Notes The following approved medication requests have been transmitted electronically. Requested Prescriptions Signed Prescriptions Disp Refills rosuvastatin (CRESTOR) 5 mg tablet 90 tablet 1 Sig: Take 1 tablet by mouth once daily. Authorizing Provider: BAIRON TORRES MD Prescription Refill Information The patient has been identified by name and date of : Yes Caregiver verified no other encounters exist for this prescription request: Yes Caregiver confirmed with patient/requestor that no other refills are due, in the near future, with this provider at this time: Yes The last office visit in the department: 10/21/23 Does the patient have a future office visit with this provider/department: Yes 04/23/24 Requested Prescriptions Pending Prescriptions Disp Refills rosuvastatin (CRESTOR) 5 mg tablet Sig: Take 1 tablet by mouth once daily. My Note Signed8:26 AM Addend Delete Copy Prescription Refill Information The patient has been identified by name and date of : Yes Caregiver verified no other encounters exist for this prescription request: Yes Caregiver confirmed with patient/requestor that no other refills are due, in the near future, with this provider at this time: Yes The last office visit in the department: 10/21/23 Does the patient have a future office visit with this provider/department: Yes 04/23/24 Requested Prescriptions Pending Prescriptions Disp Refills rosuvastatin (CRESTOR) 5 mg tablet Sig: Take 1 tablet by mouth once daily. Karma Dotson LPN December 08, 2023 8:26 AM documented in this encounter [facility] 12-08-2023 Telephone encounter Note Prescription Refill Information The patient has been identified by name and date of : Yes Caregiver verified no other encounters exist for this prescription request: Yes Caregiver confirmed with patient/requestor that no other refills are due, in the near future, with this provider at this time: Yes The last office visit in the department: 10/21/23 Does the patient have a future office visit with this provider/department: Yes 04/23/24 Requested Prescriptions Pending Prescriptions Disp Refills rosuvastatin (CRESTOR) 5 mg tablet Sig: Take 1 tablet by mouth once daily. My Note Signed8:26 AM Addend Delete Copy Prescription Refill Information The patient has been identified by name and date of : Yes Caregiver verified no other encounters exist for this prescription request: Yes Caregiver confirmed with patient/requestor that no other refills are due, in the near future, with this provider at this time: Yes The last office visit in the department: 10/21/23 Does the patient have a future office visit with this provider/department: Yes 04/23/24 Requested Prescriptions Pending Prescriptions Disp Refills rosuvastatin (CRESTOR) 5 mg tablet Sig: Take 1 tablet by mouth once daily. Karma Dotson LPN December 08, 2023 8:26 AM [facility] 11-11-2023 Instructions Hue Torres PA-C - 11/11/2023 4:24 PM EDT No changes to medications Increase calorie intake (ensure drinks, high calorie foods) Follow up in 4-5 months documented in this encounter [facility] 11-11-2023 Note HNO ID: [id number] Author: HUE TORRES PA-C Service: ? Author Type: Physician Centrifugal Screen Tender Type: Progress Notes Filed: 11/11/2023 16:48 Note Text: [facility] Name: Guicho Martinez Age: [age] year old Gender: female Primary Care Provider: Bairon Torres MD 11/11/2023 - General Neurology, Hue Torres PA-C ASSESSMENT ASSESSMENT/PLAN: 1. Dementia without behavioral disturbance, psychotic disturbance, mood disturbance, or anxiety, unspecified dementia severity, unspecified dementia type (HCC) - ICD9: 294.20, ICD10: F03.90 Patient with her daughter for follow-up appointment. Doing very well in terms of memory and dementia. Unfortunately, was unable to do a [place] due to time constraints. 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 Patient's primary concern today was her neighbor who has been having some issues with cognition, seems to bother her and is very bossy. Prevents her from going outside and going on walks as she seems to watch for her. Daughter notes this is caused her to be more agitated and on edge. Otherwise, patient is doing very well, did gain a pound and a half since last appointment. Notes that she is eating all the time, eats lots of high caloric foods. Encouraged high calorie drinks as well including Ensure and patient and daughter states they will try these as well. Patient no longer driving. Still compliant with Exelon 1.5 mg. No new concerns today that would warrant additional workup. Encouraged conservative therapy as well including increasingphysical activity and cognitive activity. Discussed safety precautions at home as well in depth. Patient and daughter agreeable to treatment plan of care at this time, questions were answered. Patient to follow-up in 5 to 6 months, or sooner should any symptoms change or worsen. This is a 88 year old female followed for memory loss. Current medication treatment: Exelon 1.5 mg Indication for repeat cognitive testing: No No diagnosis found. No follow-ups on file. Chart, labs,and relevant images reviewed. Chief Complaint:No chief complaint on file. Chart Review: Last Filed Values None HPI: Last seen on 05/28/23 for dementia. Presents with daughter, no longer driving. Weight stable but BMI of 16. MoCA 15. On exelon. Lives alone and family visits regularly. Patient presents with her daughter for follow-up appointment. Patient still living alone doing well. Did gain about a pound and a half, is unsure where she has gained more as she is eating all day, states that she eats a lot of high calorie foods as well. No falls since last appointment. No new concerns today. Note that she is having some frustrations with her neighbor who is 89 and asks her to do a lot of things. Notes that she has a hard time going outside because she is worried about this neighbor bothering her, this prevents her from doing alot of physical activity that she loves to do. Daughter notes that she is more agitated lately because of this. Notes that her memory has been stable, no concerns with this. Uses the stove few times a week without leaving on, doing really well. No confusion at night or wandering. Daughter does note that she is been having some issues with seeing things that are right in front of her. Was told by her eye doctor and primary care that was secondary to cognition and not an eye problem. Drinks a few glasses of water a day. Is not as physically active as she would like as her neighbor prevents her from going on walks daily. No issues with sleep. No new concerns today. Sleep concerns? no Eating/nutrition concerns? Med side effects concerns? no Hallucinations? no Social work consult interest? no Wandering/getting lost concern? no Caregiver burnout concern? no Driving safety concern? 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 Rosacea History of Itp Lactose Intolerance Osteoporosis Stage 3a Chronic Kidney Disease (Hcc) Elevated Tsh Elevated Blood Sugar Fatigue Bilateral Carotid Artery Stenosis Living Will On File At Physician's Office Advance Directive Discussed With Patient Hydrocephalus in Diseases Classified Elsewhere (Hcc) Dementia of The Alzheimer's Type, With Late Onset, Uncomplicated (Hcc) Encounter for Medicare Annual Wellness Exam Balance Problems Risk for Falls Polyarticular Arthritis Medication Management Corns PAST MEDICAL HISTORY 03/06/2022: Advance directive discussed with patient Comment: Discussed 03/2022: up to date 08/25/2023: Balance problems No date: Benign neopl (more content not included)... [facility] 11-11-2023 History of Present illness Narrative Images from the original note were not included. [facility] Name: Guicho Martinez Age: [age] year old Gender: female Primary Care Provider: Bairon Torres MD 11/11/2023 - General Neurology, Hue Torres PA-C ASSESSMENT ASSESSMENT/PLAN: 1. Dementia without behavioral disturbance, psychotic disturbance, mood disturbance, or anxiety, unspecified dementia severity, unspecified dementia type (HCC) - ICD9: 294.20, ICD10: F03.90 Patient with her daughter for follow-up appointment. Doing very well in terms of memory and dementia. Unfortunately, was unable to do a [place] due to time constraints. 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 Patient's primary concern today was her neighbor who has been having some issues with cognition, seems to bother her and is very bossy. Prevents her from going outside and going on walks as she seems to watch for her. Daughter notes this is caused her to be more agitated and on edge. Otherwise, patient is doing very well, did gain a pound and a half since last appointment. Notes that she is eating all the time, eats lots of high caloric foods. Encouraged high calorie drinks as well including Ensure and patient and daughter states they will try these as well. Patient no longer driving. Still compliant with Exelon 1.5 mg. No new concerns today that would warrant additional workup. Encouraged conservative therapy as well including increasing physical activity and cognitive activity. Discussed safety precautions at home as well in depth. Patient and daughter agreeable to treatment plan of care at this time, questions were answered. Patient to follow-up in 5 to 6 months, or sooner should any symptoms change or worsen. This is a 88 year old female followed for memory loss. Current medication treatment: Exelon 1.5 mg Indication for repeat cognitive testing: No No diagnosis found. No follow-ups on file. Chart, labs,and relevant images reviewed. Chief Complaint:No chief complaint on file. Chart Review: Last Filed Values None HPI: Last seen on 05/28/23 for dementia. Presents with daughter, no longer driving. Weight stable but BMI of 16. MoCA 15. On exelon. Lives alone and family visits regularly. Patient presents with her daughter for follow-up appointment. Patient still living alone doing well. Did gain about a pound and a half, is unsure where she has gained more as she is eating all day, states that she eats a lot of high calorie foods as well. No falls since last appointment. No new concerns today. Note that she is having some frustrations with her neighbor who is 89 and asks her to do a lot of things. Notes that she has a hard time going outside because she is worried about this neighbor bothering her, this prevents her from doing a lot of physical activity that she loves to do. Daughter notes that she is more agitated lately because of this. Notes that her memory has been stable, no concerns with this. Uses the stove few times a week without leaving on, doing really well. No confusion at night or wandering. Daughter does note that she is been having some issues with seeing things that are right in front of her. Was told by her eye doctor and primary care that was secondary to cognition and not an eye problem. Drinks a few glasses of water a day. Is not as physically active as she would like as her neighbor prevents her from going on walks daily. No issues with sleep. No new concerns today. Sleep concerns? no Eating/nutrition concerns? Med side effects concerns? no Hallucinations? no Social work consult interest? no Wandering/getting lost concern? no Caregiver burnout concern? no Driving safety concern? 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 Rosacea History of Itp Lactose Intolerance Osteoporosis Stage 3a Chronic Kidney Disease (Hcc) Elevated Tsh Elevated Blood Sugar Fatigue Bilateral Carotid Artery Stenosis Living Will On File At Physician's Office Advance Directive Discussed With Patient Hydrocephalus in Diseases Classified Elsewhere (Hcc) Dementia of The Alzheimer's Type, With Late Onset, Uncomplicated (Hcc) Encounter for Medicare Annual Wellness Exam Balance Problems Risk for Falls Polyarticular Arthritis Medication Management Corns PAST MEDICAL HISTORY 03/06/2022: Advance directive discussed with patient Comment: Discussed 03/2022: up to date 08/25/2023: Balance problems No date: Benign neoplasm of colon 01/08/2022: Bilateral carotid artery stenosis Comment: US: 07/2021 Allen 40-60% 06/10/2013: Chronic ITP (idiopathic thrombocytopenia) (HCC) 05/08/2022: Dementia of the Alzheimer's type, with late onset, uncomplicated (HCC) No date: Diverticulosis of colon (without mention of hemorrhage) 07/09/2005: Dysmetabolic syndrome X 07/23/2021: Elevated blood sugar 07/23/2021: Elevated TSH 09/04/2022: Encounter for Medicare annual wellness exam Comment: Medicare Part B: Not able to find Last done: 09/04/2022 01/09/2005: Family history of malignant neoplasm of gastrointestinal tract 09/14/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 12/08/2012: History of ITP 04/01/2022: Hydrocephalus in diseases classified elsewhere (HCC) No date: Internal hemorrhoids without mention of complication No date: ITP (idiopathic thrombocytopenic purpura) Comment: History of episode in 2000 02/23/2016: Lactose intolerance 03/06/2022: Living will on file at physician's office Comment: DPA: Mitchell (daughter's) No date: Mixed hyperlipidemia 12/02/2018: Osteoporosis 10/21/2023: Polyarticular arthritis Comment: Seeing Rheum 08/25/2023: Risk for falls 09/14/2009: Rosacea 07/18/2020: Stage 3a chronic kidney disease (HCC) No date: Unspecified glaucoma(365.9) Medications: Reviewed rivastigmine tartrate (EXELON) 1.5 mg capsule Take 1 capsule in the morning and 2 capsules at night. rosuvastatin (CRESTOR) 5 mg tablet Take 1 tablet by mouth once daily. hydrOXYchloroQUINE (PLAQUENIL) 200 mg tablet Take 1 tablet by mouth once daily. Per rheumatology [id number] (ZENPEP) 40,000-126,000- 168,000 unit delayed release capsule Take by mouth three times daily with meals. BIOTIN ORAL Take 10,000 mcg by mouth once daily. THERAPEUTIC MULTIVITAMIN TAB Take one(1) tablet daily. ALLERGIES Allergen Reactions Asa [Salicylates] Other: See Comments Hx of low plateletes Ibuprofen Hives Penicillins Other: See Comments passed out Aricept [Donepezil] Other: See Comments Nausea, vomiting and dizziness. FAMILY HISTORY Problem Relation Age of Onset Diabetes Mother feeding tube Stroke Father colon cancer Heart Brother aneurysm behind heart Aneurysm Brother stomach PAST SURGICAL HISTORY 03/20/05: COLONOSCOPY FLX DX W/COLLJ SPEC WHEN PFRMD Comment: Colonoscopy 08/29/10: COLONOSCOPY FLX DX W/COLLJ SPEC WHEN PFRMD 09-30-13: COLONOSCOPY W/BIOPSY SINGLE/MULTIPLE 09-30-13: EGD TRANSORAL BIOPSY SINGLE/MULTIPLE 09-30-13: GASTROESOPHAG REFLX TEST W/TELEMTRY PH ELTRD Comment: PH PROBE 12-09-13: LAPS RPR PARAESPHGL HRNA INCL FUNDPLSTY W/O MESH Comment: 1957: PAST SURGICAL HISTORY OF Comment: growth of ovary/growth off bowell/appendectomy 1968: PAST SURGICAL HISTORY OF Comment: tumor removed behind naval 05/2007: PAST SURGICAL HISTORY OF Comment: knee surgery 2011: PAST SURGICAL HISTORY OF Comment: bilateral cataract No date: PAST SURGICAL HISTORY OF Comment: bilat great toe repair No date: PAST SURGICAL HISTORY OF Comment: left shoulder repair, arthoscopy No date: TONSILLECTOMY PRIMARY/SECONDARY <AGE 14 Comment: Tonsillectomy 1984: TOTAL ABDOMINAL HYSTERECT W/WO RMVL TUBE OVARY Comment: Hysterectomy, MOOSE Social Hx: @Alcohol Use: Not At Risk (10/14/2023) AUDIT-C Frequency of Alcohol Consumption: Not on file Average Number of Drinks: Patient does not drink Frequency of Binge Drinking: Never Tobacco Use: Low Risk (10/21/2023) Patient History Smoking Tobacco Use: Never Smokeless Tobacco Use: Never Passive Exposure: Not on file There were no vitals filed for this visit. Neurologic Exam Cognitive and Language: Alert and answered questions appropriately. Language was fluent. Cranial Nerves: Extraocular movements were full with no diplopia or nystagmus. Facial strength was symmetric. Motor: Full strength throughout upper and lower extremities Sensory: Intact to light touch throughout Reflexes: 1/4 throughout Coordination: Normal finger to nose and heel to luu testing bilaterally. Normal gait. Labs: Lab Results Component Value Date WBC 6.80 10/21/2023 HCT 42.2 10/21/2023 MCV 97.2 10/21/2023 PLT 208 10/21/2023 Lab Results Component Value Date HBA1C 5.5 10/21/2023 HBA1C 5.1 03/08/2023 HBA1C 5.3 08/17/2022 HBA1C 5.6 11/29/2016 HBA1C 5.7 12/03/2013 Total Cholesterol, Nonfasting Date Value Ref Range Status 10/21/2023 145 <200 mg/dL Final Comment: <200 mg/dL, Desirable 200-239 mg/dL, Borderline high >239 mg/dL, High HDL Cholesterol, Nonfasting Date Value Ref Range Status 10/21/2023 60 >39 mg/dL Final Comment: 40-59 mg/dL, Acceptable >59 mg/dL, High: Negative risk factor for coronary heart disease <40 mg/dL, Low: Positive risk factor for coronary heart disease LDL Cholesterol, Nonfasting Date Value Ref Range Status 10/21/2023 63 <100 mg/dL Final Comment: <100 mg/dL, Optimal 100-129 mg/dL, Near optimal/above optimal 130-159 mg/dL, Borderline high 160-189 mg/dL, High >189 mg/dL, Very high Secondary prevention optimal LDL Cholesterol levels are recommended to be < 70 mg/dL Triglycerides, Nonfasting Date Value Ref Range Status 10/21/2023 110 <150 mg/dL Final Comment: <150 mg/dL, Normal 150-199 mg/dL, Borderline high 200-499 mg/dL, High >499 mg/dL, Very high Lab Results Component Value Date TSH 2.010 10/21/2023 TSH 2.010 02/17/2020 Lab Results Component Value Date B12 1,534 07/23/2021 Results for orders placed or performed in visit on 10/21/23 COMPREHENSIVE METABOLIC PANEL Result Value Ref Range Protein, Total 7.0 6.3 - 8.0 g/dL Albumin 4.4 3.9 - 4.9 g/dL Calcium, Total 10.0 8.5 - 10.2 mg/dL Bilirubin, Total 0.6 0.2 - 1.3 mg/dL Alkaline Phosphatase 80 34 - 123 U/L AST 26 13 - 35 U/L ALT 12 7 - 38 U/L Glucose 87 74 - 99 mg/dL BUN 13 7 - 21 mg/dL Creatinine 0.93 0.58 - 0.96 mg/dL Sodium 140 136 - 144 mmol/L Potassium 4.7 3.7 - 5.1 mmol/L Chloride 101 98 - 107 mmol/L CO2 30 22 - 30 mmol/L Anion Gap 9 8 - 15 mmol/L Estimated Glomerular Filtration Rate 60 >=60 mL/min/1.73m HEMOGLOBIN A1C Result Value Ref Range Hemoglobin A1C 5.5 4.3 - 5.6 % Estimated Average Glucose 111 mg/dL THYROID STIMULATING HORMONE Result Value Ref Range TSH 2.010 0.270 - 4.200 mIU/L LIPID PANEL, NONFASTING Result Value Ref Range Total Cholesterol, Nonfasting 145 <200 mg/dL Triglycerides, Nonfasting 110 <150 mg/dL HDL Cholesterol, Nonfasting 60 >39 mg/dL LDL Cholesterol, Nonfasting 63 <100 mg/dL Non HDL Cholesterol, Nonfasting 85 <130 mg/dL VLDL Cholesterol, Nonfasting 22 <30 mg/dL Total Chol/HDL Ratio, Nonfasting 2.42 <5.10 mg/dL LDL/HDL Ratio, Nonfasting 1.05 <2.54 mg/dL COMPLETE BLOOD COUNT AND DIFFERENTIAL Result Value Ref Range WBC 6.80 3.70 - 11.00 k/uL RBC 4.34 3.90 - 5.20 m/uL Hemoglobin 13.5 11.5 - 15.5 g/dL Hematocrit 42.2 36.0 - 46.0 % MCV 97.2 80.0 - 100.0 fL MCH 31.1 26.0 - 34.0 pg MCHC 32.0 30.5 - 36.0 g/dL RDW-CV 12.1 11.5 - 15.0 % Platelet Count 208 150 - 400 k/uL MPV 10.0 9.0 - 12.7 fL Neutrophils % 67.1 % Abs Neut 4.56 1.45 - 7.50 k/uL Lymphocytes % 17.9 % Abs Lymph 1.22 1.00 - 4.00 k/uL Monocytes % 9.9 % Abs [place] 0.67 <0.87 k/uL Eosinophils % 4.3 % Abs Eosin 0.29 <0.46 k/uL Basophils % 0.7 % Abs Baso 0.05 <0.11 k/uL Immature Granulocytes % 0.1 % Abs Immature Gran <0.03 <0.10 k/uL NRBC 0.0 /100 WBC Absolute nRBC <0.01 <0.01 k/uL Diff Type Auto Radiology: MRI Head/Brain - Last 2 Impressions MRI BRAIN WO IVCON Exam End: 04/01/2022 3:18 PM (Final result) Impression: IMPRESSION: 1. Age expected senescent changes. 2. No acute disease.... This note was dictated using [employer] speech recognition software and may contain some errors that were a result of the program not accurately transcribing what was dictated, despite efforts to make corrections. Note that unless urgent, test and MRI results will be discussed at next follow-up visit. PROMIS (Patient-Reported Outcomes Measurement Information System) is a set of person-centered measures that evaluates and monitors physical, social, and emotional health. It can be used with the general population and with individuals living with chronic conditions. PROMIS 10: PHYSICAL AND MENTAL HEALTH: 10/21/2023 PHQ-9 PHQ-2 Score 0 Medical Decision Making: Medical Decision Making Level: 1 - N/A I spent a total of 45 minutes on the date of the service which included preparing to see the patient, [id number] patient care, completing clinical documentation, obtaining and/or reviewing separately obtained history, performing a medically appropriate examination, and counseling and educating the patient/family/caregiver. documented in this encounter [facility] 10-22-2023 Telephone encounter Note Spoke with daughter and gave results. Keerthi Go MA [facility] 10-22-2023 Miscellaneous Notes Spoke with daughter and gave results. Keerthi Go MA Let daughterMarimar, know her mother's labs were al good. documented in this encounter [facility] 10-22-2023 Telephone encounter Note Let daughterMarimar, know her mother's labs were al good. [facility] 10-21-2023 History of Present illness Narrative Images from the original note were not included. Guicho Martinez is a 88 year old female here for a Medicare wellness visit. Medicare Health Risk Assessment General Health Fair Exercise: Minutes/Day Patient declined Exercise: Days/Week Patient declined Alcohol: Daily Use Alcohol: Drinks/Day Patient does not drink Alcohol: 6 or more drinks Never Feel off balance No Concerns: Teeth/Dentures No Concerns: Sexual function No Troubled by feelings None of the above Frequency: Eating healthy diet Several days ADLs requiring help None of the above Safety precautions in home/vehicle Yes Smoke, vape, chews tobacco No Difficulty hearing No Difficulty seeing No Current Providers Specialists: I have reviewed specialist-related care of the patient in the medical record. Current care team: Patient Care Team: Bairon Torres MD as PCP - General (Family Medicine) Neuro Brenda Medical/Family history review Reviewed and updated problem list, medical/surgical/family/social history, medications, and allergies. Opioid use review Opioid Medications (last 90 days) No data to display Anxiety/Depression screening PHQ-2 Score: 0 (Lower risk for depression) Recommendation: no further intervention at this time Cognitive screening Cognitive screening reviewed and Patient has known cognitive impairment. Functional Observation Was the patient's Timed Up & Go test unsteady or ? 12 seconds? No Advance Care Planning Surrogate decision maker documented and/or advance directives scanned in chart Measurements BP 128/72 (BP Site: Left Arm, BP Position: Sitting, BP Cuff Size: Regular Adult) Pulse 64 Resp 14 Ht 158.8 cm (5' 2.5) Wt 41.3 kg (91 lb) BMI 16.38 kg/m Vision Screening: Follows with optometry/ophthalmology Assessment/Plan Medicare annual wellness visit, subsequent (Z00.00) - Counseled on healthy diet and regular exercise - Fall avoidance information provided - Personalized prevention plan provided See below Chief Complaint Patient presents with: Medicare Wellness Exam HPI Guicho Martinez is a 88 year old female who presents here today for Chronic Medical Conditions. and Medicare Annual Visit. Patient with Hx of hyperlipidemia, Carotid artery stenosis, elevated TSH, elevated blood sugar, CKD, lactose intolerance, rosacea, osteoporosis, dementia, diverticulosis as well as those reviewed and addressed below and in ROS. Patient sees neurology last visit 05/2023 Patient has been doing ok. Tolerating the Exelon at its current dose. Past medical history, appointments, medications, allergies reviewed. Previous Medical History PAST MEDICAL HISTORY 03/06/2022: Advance directive discussed with patient Comment: Discussed 03/2022: up to date 08/25/2023: Balance problems No date: Benign neoplasm of colon 01/08/2022: Bilateral carotid artery stenosis Comment: US: 07/2021 Allen 40-60% 06/10/2013: Chronic ITP (idiopathic thrombocytopenia) (HCC) 05/08/2022: Dementia of the Alzheimer's type, with late onset, uncomplicated (HCC) No date: Diverticulosis of colon (without mention of hemorrhage) 07/09/2005: Dysmetabolic syndrome X 07/23/2021: Elevated blood sugar 07/23/2021: Elevated TSH 09/04/2022: Encounter for Medicare annual wellness exam Comment: Medicare Part B: Not able to find Last done: 09/04/2022 01/09/2005: Family history of malignant neoplasm of gastrointestinal tract 09/14/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 12/08/2012: History of ITP 04/01/2022: Hydrocephalus in diseases classified elsewhere (HCC) No date: Internal hemorrhoids without mention of complication No date: ITP (idiopathic thrombocytopenic purpura) Comment: History of episode in 199902/23/2016: Lactose intolerance 03/06/2022: Living will on file at physician's office Comment: DPA: Mitchell (daughter's) No date: Mixed hyperlipidemia 12/02/2018: Osteoporosis 08/25/2023: Risk for falls 09/14/2009: Rosacea 07/18/2020: Stage 3a chronic kidney disease (HCC) No date: Unspecified glaucoma(365.9) Previous Surgical History PAST SURGICAL HISTORY 03/20/05: COLONOSCOPY FLX DX W/COLLJ SPEC WHEN PFRMD Comment: Colonoscopy 08/29/10: COLONOSCOPY FLX DX W/COLLJ SPEC WHEN PFRMD 09-30-13: COLONOSCOPY W/BIOPSY SINGLE/MULTIPLE 09-30-13: EGD TRANSORAL BIOPSY SINGLE/MULTIPLE 09-30-13: GASTROESOPHAG REFLX TEST W/TELEMTRY PH ELTRD Comment: PH PROBE 12-09-13: LAPS RPR PARAESPHGL HRNA INCL FUNDPLSTY W/O MESH Comment: 1957: PAST SURGICAL HISTORY OF Comment: growth of ovary/growth off bowell/appendectomy 1967: PAST SURGICAL HISTORY OF Comment: tumor removed behind naval 05/2007: PAST SURGICAL HISTORY OF Comment: knee surgery 2012: PAST SURGICAL HISTORY OF Comment: bilateral cataract No date: PAST SURGICAL HISTORY OF Comment: bilat great toe repair No date: PAST SURGICAL HISTORY OF Comment: left shoulder repair, arthoscopy No date: TONSILLECTOMY PRIMARY/SECONDARY <AGE 14 Comment: Tonsillectomy 1985: TOTAL ABDOMINAL HYSTERECT W/WO RMVL TUBE OVARY Comment: Hysterectomy, MOOSE Family History FAMILY HISTORY Problem Relation Age of Onset Diabetes Mother feeding tube Stroke Father colon cancer Heart Brother aneurysm behind heart Aneurysm Brother stomach Patient Allergies ALLERGIES Allergen Reactions Asa [Salicylates] Other: See Comments Hx of low plateletes Ibuprofen Hives Penicillins Other: See Comments passed out Aricept [Donepezil] Other: See Comments Nausea, vomiting and dizziness. Current Medications Current Outpatient Medications on File Prior to Visit Medication Sig rivastigmine tartrate (EXELON) 1.5 mg capsule Take 1 capsule by mouth as directed. Take 1 capsule in the morning and 2 capsules at night. alendronate (FOSAMAX) 35 mg tablet Take on empty stomach in the morning with 8 oz of water. After taking do not have food, drink, medications, or supplements for at least one half-hour. Take 1 tablet PO once each week. rosuvastatin (CRESTOR) 10 mg tablet Take 1 tablet by mouth every other day. hydrOXYchloroQUINE (PLAQUENIL) 200 mg tablet Take 1 tablet by mouth once daily. Per rheumatology ejhefu-ocfiynev-fujirhi (ZENPEP) 40,000-126,000- 168,000 unit delayed release capsule Take by mouth three times daily with meals. BIOTIN ORAL Take 10,000 mcg by mouth once daily. calcium carbonate/vitamin D3 (CALCIUM 600 + D ORAL) Take 1 tablet by mouth twice daily. calcium carbonate-vitamin D (OS-DEBBI 250 W/D) 250 (625)-125 mg-unit tab Take 1 tablet by mouth once daily. LUMIGAN 0.03 % EYE DROPS one drop each eye nightly THERAPEUTIC MULTIVITAMIN TAB Take one(1) tablet daily. No current facility-administered medications on file prior to visit. Social History Social History Tobacco Use Smoking status: Never Smokeless tobacco: Never Substance Use Topics Alcohol use: No Review of Symptoms REVIEW OF SYSTEMS GENERAL: No weight loss, malaise or fevers HEENT: Negative for frequent or significant headaches, No changes in hearing. Slight decrease vision, no nose bleeds or other nasal problems NECK: Negative for lumps, goiter, pain and significant neck swelling RESPIRATORY: Negative for cough, hemoptysis, wheezing, COPD, dyspnea or shortness of breath CARDIOVASCULAR: Negative for chest pain, leg swelling, hypertension, CHF or palpitations GI: No nausea, vomiting, or diarrhea and No heartburn or reflux symptoms : No history of dysuria, frequency or blood MUSCULOSKELETAL: Negative for new or changes in her typical joint pain or swelling, back pain or muscle pain SKIN: Negative for lesions, rash, and itching PSYCH: Negative for sleep disturbance, mood disorder and recent psychosocial stressors HEMATOLOGY/LYMPHOLOGY: Negative for prolonged bleeding, bruising easily or swollen nodes ENDOCRINE: Negative for heat intolerance, polyuria, polydipsia and goiter. Some cold intolerance. NEURO: No history of headaches, syncope, paralysis, seizures or tremors EXAM: BP 128/72 (BP Site: Left Arm, BP Position: Sitting, BP Cuff Size: Regular Adult) Pulse 64 Resp 14 Ht 158.8 cm (5' 2.5) Wt 41.3 kg (91 lb) BMI 16.38 kg/m Last 5 Encounter Wt Readings: Date: Wt: 10/21/2023 41.3 kg (91 lb) 05/28/2023 42 kg (92 lb 9.6 oz) 03/13/2023 42.6 kg (94 lb) 11/27/2022 43.5 kg (96 lb) 09/04/2022 43.5 kg (96 lb) General Appearance: Well appearing, alert, in no acute distress, well-hydrated, well nourished.. Skin: Skin color, texture, turgor normal, no suspicious rashes or lesions. Has a corn on the medical side of the right big toe and on the ball of the right foot that have been causing pain.. Head: Normocephalic, no masses, lesions, tenderness or abnormalities. Eyes: Anicteric sclera. Pupils are equally round and reactive to light. Extraocular movements are intact. . Ears: External ears, TM's normal, canals clear. Nose/Sinuses: Nares normal, septum midline, mucosa normal, no drainage or sinus tenderness. Oropharynx: Lips, mucosa, and tongue normal, teeth and gums normal, oropharynx normal. Neck: Supple, no adenopathy; thyroid symmetric, normal size, soft bruit on the right. Lungs: Lungs clear to auscultation. No wheezing, rhonchi, rales.. Heart: RRR without murmur, gallop, or rubs. No ectopy. Abdomen: Normal abdominal exam, Abdomen soft, non-tender. Bowel sounds normal. No masses, organomegaly. Extremities: No deformities, edema, skin discoloration, clubbing or cyanosis. Good capillary refill. . Musculoskeletal: Muscular strength intact, No joint swelling, deformity, or tenderness. Peripheral Pulses: Normal. Neurologic: Gait normal. Reflexes normal and symmetric. Sensation to light touch and crainal nerves 2-12 intact.. Health Maintenance List Advance Directive Discussion due on 03/03/2023 Bone Density Screening due on 04/03/2023 Covid-19 Vaccine( season) due on 07/12/2023 Influenza Vaccine(1) due on 11/02/2023 Diabetes Screening due on 05/18/2026 DTaP,Tdap,Td Vaccine(4 - Td or Tdap) due on 04/19/2033 RSV Vaccine Completed Shingrix Vaccine Completed Pneumococcal Vaccine: 65+ Completed Data reviewed A/P ASSESSMENT/PLAN: 1. Encounter for Medicare annual wellness exam - ICD9: V70.0, ICD10: Z00.00 (primary diagnosis) - Counseled on healthy diet and regular exercise - Follow up for annual exam in one year 2. Mixed hyperlipidemia - ICD9: 272.2, ICD10: E78.2 - await lab - Continue current medications - Counseled on healthy diet and regular exercise Check CMP, lipid and UA. 3. Elevated blood sugar - ICD9: 790.29, ICD10: R73.9 - check A1c 4. Elevated TSH - ICD9: 794.5, ICD10: R79.89 - check TSH and CBC 5. Bilateral carotid artery stenosis - ICD9: 433.10, 433.30, ICD10: I65.23 - await lipid. Continue to monitor with US. 6. Stage 3a chronic kidney disease (HCC) - ICD9: 585.3, ICD10: N18.31 - await labs - Counseled on avoiding NSAIDs, adequate hydration 7. Dementia of the Alzheimer's type, with late onset, uncomplicated (HCC) - ICD9: 331.0, 294.10, ICD10: G30.1, F02.80 - on exelon and seeing Neuro 8. Polyarticular arthritis - ICD9: 716.50, ICD10: M13.0 - on med and managed per Rheum 9. Hydrocephalus in diseases classified elsewhere (HCC) - ICD9: 331.7, ICD10: G91.4 - managed per neuro 10. Osteoporosis, unspecified osteoporosis type, unspecified pathological fracture presence - ICD9: 733.00, ICD10: M81.0 - Reviewed the need for Calcium and Vitamin D supplements and weight bearing exercise as tolerated - she has been on Fosamax for over 5 years. Will stop and get DXA in a year. 11. Corns - ICD9: 700, ICD10: L84 - has one on the right great toe medially and ball of the right foot. Discussed paring and verbal consent provided. Both areas paired with a #15 blade. Patient tolerated well. After pairing neither areas were tender to touch anymore. 12. Advance directive discussed with patient - ICD9: V65.49, ICD10: Z71.89 - up to date 13. Medication management - ICD9: V58.69, ICD10: Z79.899 - check CBC. F/u in 6 months check TSH, Lipid, CMP and A1c prior I spent a total of 40 minutes on the date of the service which included preparing to see the patient, [id number] patient care, completing clinical documentation, performing a medically appropriate examination, counseling and educating the patient/family/caregiver and ordering medications, tests, or procedures. Bairon Torres MD documented in this encounter [facility] 10-21-2023 Note HNO ID: [id number] Author: BAIRON TORRES MD Service: ? Author Type: Physician Type: Progress Notes Filed: 10/21/2023 14:24 Note Text: Guicho Martinez is a 88 year old female here for a Medicare wellness visit. Medicare Health Risk Assessment General Health Fair Exercise: Minutes/Day Patient declined Exercise: Days/Week Patient declined Alcohol: Daily Use Alcohol: Drinks/Day Patient does not drink Alcohol: 6 or more drinks Never Feel off balance No Concerns: Teeth/Dentures No Concerns: Sexual function No Troubled by feelings None of the above Frequency: Eating healthy diet Several days ADLs requiring help None of the above Safety precautions in home/vehicle Yes Smoke, vape, chews tobacco No Difficulty hearing No Difficulty seeing No Current Providers Specialists: I have reviewed specialist-related care of the patient in the medical record. Current care team: Patient Care Team: Bairon Torres MD as PCP - General (Family Medicine) Neuro [place] Medical/Family history review Reviewed and updated problem list, medical/surgical/family/social history, medications, and allergies. Opioid use review Opioid Medications (last 90 days) No data to display Anxiety/Depression screening PHQ-2 Score: 0 (Lower risk for depression) Recommendation: no further intervention at this time Cognitive screening Cognitive screening reviewed and Patient has known cognitive impairment. Functional Observation Was the patient's Timed Up AND Go test unsteady or ? 12 seconds? No Advance Care Planning Surrogate decision maker documented and/or advance directives scanned in chart Measurements BP 128/72 (BP Site: Left Arm, BP Position: Sitting, BP Cuff Size: Regular Adult) Pulse 64 Resp 14 Ht 158.8 cm (5' 2.5) Wt 41.3 kg (91 lb) BMI 16.38 kg/m? Vision Screening: Follows with optometry/ophthalmology Assessment/Plan Medicare annual wellness visit, subsequent (Z00.00) - Counseled on healthy diet and regular exercise - Fall avoidance information provided - Personalized prevention plan provided See below Chief Complaint Patient presents with: Medicare Wellness Exam HPI Guicho Martinez is a 88 year old female who presents here today for Chronic Medical Conditions. and Medicare Annual Visit. Patient with Hx of hyperlipidemia, Carotid artery stenosis, elevated TSH, elevated blood sugar, CKD, lactose intolerance, rosacea, osteoporosis, dementia, diverticulosis as well as those reviewed and addressed below and in ROS. Patient sees neurology last visit 05/2023 Patient has been doing ok. Tolerating the Exelon at its current dose. Past medical history, appointments, medications, allergies reviewed. Previous Medical History PAST MEDICAL HISTORY 03/06/2022: Advance directive discussed with patient Comment: Discussed 03/2022: up to date 08/25/2023: Balance problems No date: Benign neoplasm of colon 01/08/2022: Bilateral carotid artery stenosis Comment: US: 07/2021 [place] 40-60% 06/10/2013: Chronic ITP (idiopathic thrombocytopenia) (HCC) 05/08/2022: Dementia of the Alzheimer's type, with late onset, uncomplicated (HCC) No date: Diverticulosis of colon (without mention of hemorrhage) 07/09/2005: Dysmetabolic syndrome X 07/23/2021: Elevated blood sugar 07/23/2021: Elevated TSH 09/04/2022: Encounter for Medicare annual wellness exam Comment: Medicare Part B: Not able to find Last done: 09/04/2022 01/09/2005: Family history of malignant neoplasm of gastrointestinal tract 09/14/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 12/08/2012: History of ITP 04/01/2022: Hydrocephalus in diseases classified elsewhere (HCC) No date: Internal hemorrhoids without mention of complication No date: ITP (idiopathic thrombocytopenic purpura) Comment: History of episode in 199902/23/2016: Lactose intolerance 03/06/2022: Living will on file at physician's office Comment: DPA: Mitchell (daughter's) No date: Mixed hyperlipidemia 12/02/2018: Osteoporosis 08/25/2023: Risk for falls 09/14/2009: Rosacea 07/18/2020: Stage 3a chronic kidney disease (HCC) No date: Unspecified glaucoma(365.9) Previous Surgical History PAST SURGICAL HISTORY 03/20/05: COLONOSCOPY FLX DX W/COLLJ SPEC WHEN PFRMD Comment: Colonoscopy 08/29/10: COLONOSCOPY FLX DX W/COLLJ SPEC WHEN PFRMD 09-30-13: COLONOSCOPY W/BIOPSY SINGLE/MULTIPLE 09-30-13: EGD TRANSORAL BIOPSY SINGLE/MULTIPLE 09-30-13: GASTROESOPHAG REFLX TEST W/TELEMTRY PH ELTRD Comment: PH PROBE 12-09-13: LAPS RPR PARAESPHGL HRNA INCL FUNDPLSTY W/O MESH Comment: 1957: PAST SURGICAL HISTORY OF Comment: growth of ovary/growth off bowell/appendectomy 1967: PAST SURGICAL HISTORY OF Comment: tumor removed behind naval 05/2007: PAST SURGICAL HISTORY OF Comment: knee surgery 2011: PAST SURGICAL HISTORY OF Comment: bilateral cataract No date: PAST SURGICAL HISTORY OF Comment: bilat great toe repair No d (more content not included)... [facility] 10-21-2023 Instructions Bairon Torres MD - 10/21/2023 12:16 PM EDT Stop the fosamax (Alendronate) once a week pill Please get labs done on or after 04/09/2024 prior to your next visit. BONE MINERAL DENSITY PATIENT INSTRUCTIONS ======== Bone mineral density testing measures the amount of calcium in certain parts of your bones. This information determines how strong your bones are. The test is used to detect osteoporosis, a disease in which the bone's mineral content and density are low, increasing a person's risk of fractures. The lumbar spine (lower back) and the hip are the skeletal sites usually examined. For the test, remember that: 1. You cannot take this test if you are . 2. Eat a normal diet on the day of the test. 3. Take your medications as you normally would. 4. DO NOT take calcium supplements (such as Tums) for 24 hours before the test. 5. On the day of the test, leave valuables (jewelry or credit cards) at home. 6. The test should be performed prior to oral, rectal or IV contrast studies, or at least 7 days after any of these studies. For the test, you may be asked to wear a hospital gown. You will lie on your back, on a padded table, in a comfortable position. Generally, you can resume your usual activities immediately. Screening schedule The following prevention plan is recommended: Advance Directive Discussion due on 03/03/2023 Bone Density Screening due on 04/03/2023 Covid-19 Vaccine() due on 07/12/2023 WHAT YOU CAN DO TO PREVENT FALLS Many falls can be prevented. By making some changes, you can lower your chances of falling. Four things YOU can do to prevent falls for you* and your caregiver 1. Begin a regular exercise program Exercise is one of the most important ways to lower your chances of falling. It makes you stronger and helps you feel better. Exercises that improve balance and coordination (like [place] Chi) are the most helpful. Lack of exercise leads to weakness and increases your chances of falling. Ask your doctor or health care provider about the best type of exercise program for you. 2. Have your health care provider review your medicines Have your doctor or pharmacist review all the medicines you take, even [id number] medicines. As you get older, the way medicines work in your body can change. Some medicines, or combinations of medicines, can make you sleepy or dizzy and can cause you to fall. 3. Have your vision checked Have your eyes checked by an eye doctor at least once a year. You may be wearing the wrong glasses or have a condition like glaucoma or cataracts that limits your vision. Poor vision can increase your chances of falling. 4. Make your home safer About half of all falls happen at home. To make your home safer: Remove things you can trip over (like papers, books, clothes, and shoes) from stairs and places where you walk. Remove small throw rugs or use double-sided tape to keep the rugs from slipping. Keep items you use often in cabinets you can reach easily without using a step stool. Have grab bars put in next to your toilet and in the tub or shower. Use non-slip mats in the bathtub and on shower floors. Improve the lighting in your home. As you get older, you need brighter lights to see well. Hang light-weight curtains or shades to reduce glare. Have handrails and lights put in on all staircases. Wear shoes both inside and outside the house. Avoid going barefoot or wearing slippers. For more information, contact: Centers for Disease Control and Prevention www.cdc.gov/injury * This information may not apply if you have certain medical conditions. documented in this encounter [facility] 10-14-2023 Telephone encounter Note Prescription Refill Information The patient has been identified by name and date of : Yes Caregiver verified no other encounters exist for this prescription request: Yes Caregiver confirmed with patient/requestor that no other refills are due, in the near future, with this provider at this time: Yes The last office visit in the department: 05/28/23 MQ Does the patient have a future office visit with this provider/department: Yes Requested Prescriptions Pending Prescriptions Disp Refills rivastigmine tartrate (EXELON) 1.5 mg capsule 90 capsule 2 Sig: Take 1 capsule by mouth as directed. Take 1 capsule in the morning and 2 capsules at night. Zoey Figueroa LPN October 14, 2023 8:05 AM [facility] 10-14-2023 Miscellaneous Notes Prescription Refill Information The patient has been identified by name and date of : Yes Caregiver verified no other encounters exist for this prescription request: Yes Caregiver confirmed with patient/requestor that no other refills are due, in the near future, with this provider at this time: Yes The last office visit in the department: 05/28/23 MQ Does the patient have a future office visit with this provider/department: Yes Requested Prescriptions Pending Prescriptions Disp Refills rivastigmine tartrate (EXELON) 1.5 mg capsule 90 capsule 2 Sig: Take 1 capsule by mouth as directed. Take 1 capsule in the morning and 2 capsules at night. Zoey Figueroa LPN October 14, 2023 8:05 AM documented in this encounter [facility] 08-26-2023 Telephone encounter Note Faxed to Tonie Go MA [facility] 08-26-2023 Miscellaneous Notes Faxed to Tonie Go MA Order ready Order pended, please file if agreeable documented in this encounter [facility] 08-25-2023 Telephone encounter Note Order ready T [facility] 08-25-2023 Telephone encounter Note Order pended, please file if agreeable [facility] 08-12-2023 Telephone encounter Note Images from the original note were not included. Patient has been identified by name and date of : Patient phones for refill(s): Requested Prescriptions Pending Prescriptions Disp Refills rivastigmine tartrate (EXELON) 1.5 mg capsule 90 capsule 2 Sig: Take 1 capsule by mouth as directed. Take 1 capsule in the morning and 2 capsules at night. Exelon 05/15/2023 qty 90 w/ 2 r/f MQ Last OV 05/28/2023 Next OV 11/11/2023 MQ Assessment and Plan: ASSESSMENT/PLAN: 1. Dementia without behavioral disturbance, psychotic disturbance, mood disturbance, or anxiety, unspecified dementia severity, unspecified dementia type (HCC) - ICD9: 294.20, ICD10: F03.90 Patient stable from previous. [place] today was . Patient has stopped driving since last appointment. No new concerns, no falls. Did have an episode where she excellently took 2 of her rivastigmine in the morning as opposed to 1 in the morning and 2 at night. Notes during that day she had an episode with weakness, nausea and dry heaving. Notes this resolved after about 1/2-hour, no syncope or fall with this. Notes that she is been taking her rivastigmine as prescribed since that time and has not had any recurrence of any side effects. Weight has been stable, appetite is good. No other concerns today, patient otherwise doing well. Lives at home, notes that family is visiting her regularly and she has a neighbor who she talks with daily. Is not exercising but plans to when the weather warms up. Is keeping her brain active. As patient is stable, no change in medications. Discussed conservative therapy as benefit to memory loss. At the end of the appointment, patient's daughter did express some concerns to me that she would like to communicate after the appointment. Encouraged her to reach out via MyChart or bringing in documentation. Patient and family agreeable to treatment plan of care at this time, questions were answered. Patient to follow-up in 4 to 5 months or sooner should any symptoms change or worsen. Hue Torres PA-C Note Details Instructions Return in about 5 months (around 10/28/2023). Continue rivastigmine without any changes today Increase brain exercise and physical activity Keep an eye on weight Follow up in 5 months [facility] 08-12-2023 Miscellaneous Notes Images from the original note were not included. Patient has been identified by name and date of : Patient phones for refill(s): Requested Prescriptions Pending Prescriptions Disp Refills rivastigmine tartrate (EXELON) 1.5 mg capsule 90 capsule 2 Sig: Take 1 capsule by mouth as directed. Take 1 capsule in the morning and 2 capsules at night. Exelon 05/15/2023 qty 90 w/ 2 r/f MQ Last OV 05/28/2023 Next OV 11/11/2023 MQ Assessment and Plan: ASSESSMENT/PLAN: 1. Dementia without behavioral disturbance, psychotic disturbance, mood disturbance, or anxiety, unspecified dementia severity, unspecified dementia type (HCC) - ICD9: 294.20, ICD10: F03.90 Patient stable from previous. [place] today was 1525. Patient has stopped driving since last appointment. No new concerns, no falls. Did have an episode where she excellently took 2 of her rivastigmine in the morning as opposed to 1 in the morning and 2 at night. Notes during that day she had an episode with weakness, nausea and dry heaving. Notes this resolved after about 1/2-hour, no syncope or fall with this. Notes that she is been taking her rivastigmine as prescribed since that time and has not had any recurrence of any side effects. Weight has been stable, appetite is good. No other concerns today, patient otherwise doing well. Lives at home, notes that family is visiting her regularly and she has a neighbor who she talks with daily. Is not exercising but plans to when the weather warms up. Is keeping her brain active. As patient is stable, no change in medications. Discussed conservative therapy as benefit to memory loss. At the end of the appointment, patient's daughter did express some concerns to me that she would like to communicate after the appointment. Encouraged her to reach out via MyChart or bringing in documentation. Patient and family agreeable to treatment plan of care at this time, questions were answered. Patient to follow-up in 4 to 5 months or sooner should any symptoms change or worsen. Hue Torres PA-C Note Details Instructions Return in about 5 months (around 10/28/2023). Continue rivastigmine without any changes today Increase brain exercise and physical activity Keep an eye on weight Follow up in 5 months documented in this encounter [facility] 07-14-2023 Telephone encounter Note Patient has been identified by name and date of : Yes, Provider Dr Torres Daughter phones for refill(s): Requested Prescriptions Pending Prescriptions Disp Refills alendronate (FOSAMAX) 35 mg tablet 12 tablet 1 Sig: Take on empty stomach in the morning with 8 oz of water. After taking do not have food, drink, medications, or supplements for at least one half-hour. Take 1 tablet PO once each week. Date of last office visit in primary care: 03/13/2023 Date of next office visit in primary care: 09/24/2023 Last refill: 01/21/23 #12 1 refrill Please advise. Thank you. Tanisha Peña LPN. [facility] 07-14-2023 Miscellaneous Notes Patient has been identified by name and date of : Yes, Provider Dr Torres Daughter phones for refill(s): Requested Prescriptions Pending Prescriptions Disp Refills alendronate (FOSAMAX) 35 mg tablet 12 tablet 1 Sig: Take on empty stomach in the morning with 8 oz of water. After taking do not have food, drink, medications, or supplements for at least one half-hour. Take 1 tablet PO once each week. Date of last office visit in primary care: 03/13/2023 Date of next office visit in primary care: 09/24/2023 Last refill: 01/21/23 #12 1 refrill Please advise. Thank you. Tanisha Peña LPN. documented in this encounter [facility] 06-17-2023 Miscellaneous Notes The following approved medication requests have been transmitted electronically. Requested Prescriptions Signed Prescriptions Disp Refills rosuvastatin (CRESTOR) 10 mg tablet 45 tablet 1 Sig: Take 1 tablet by mouth every other day. Bairon Torres MD Patient's daughter would like Alma Rosa rhona to ship to the patient. Keerthi Go MA documented in this encounter [facility] 05-23-2023 Miscellaneous Notes Call to Marimar and notified her of message below from Provider. Will keep her off medication and will bring her in to complete labs. Amina Weaver Ma No I do not think this is related to her meds. Call to daughter, Marimar. Dr. Guzmán advised that pt d/c Calcium chews (bid). Marimar notified her Mother of this today. Pt is to f/u with Neuro next week, can check labs then to see if Calcium comes down. Would like you to recommend, she's wondering if it' related to medication. Amina Weaver Ma Let daughter (Marimar) know that her moms recent labs for Dr. Viveros showed an elevated calcium. I placed orders to recheck this along with a parathyroid level. Patient does not need to fast. Office received fax from Dr. Guzmán's Office ([facility]) regarding pt and abnormal lab results. Please review labs in PCP inbox and advise. Amina Weaver Ma documented in this encounter [facility] 05-15-2023 Miscellaneous Notes This has been sent. Hue Torres PA-C Daughter Candy checking status on request. They have not heard anything. Please advise Nellie when this has been sent. Anabel Beth LPN Patient has been identified by name and date of : Yes Requested Prescriptions Pending Prescriptions Disp Refills rivastigmine tartrate (EXELON) 1.5 mg capsule 90 capsule 2 Sig: Take 1 capsule by mouth as directed. Take 1 capsule in the morning and 2 capsules at night. Exelon 02/06/2023 qty 90 w/ 2 r/f. Last OV 07/25/2023 Next OV 05/28/2023 Assessment and Plan: ASSESSMENT/PLAN: 1. Dementia without behavioral disturbance, psychotic disturbance, mood disturbance, or anxiety, unspecified dementia severity, unspecified dementia type (HCC) - ICD9: 294.20, ICD10: F03.90 Patient with subjective improvement in after increasing short-term memory and overall well being after increasing rivastigmine at last appointment. Denies any side effects, no falls, no new symptoms. Daughter confirms improvement in short-term memory as well. Patient is alone, daughter and patient without any concerns for her safety at this time, no leaving the stove on, no falls, does have stairs in her house but has no difficulty going up and down them. Patient does not drive, expresses concern for this as she has many appointments and has limited resources in order to get to these appointments. Okay stable at 15/30, but there is significant deficits visual-spatial ability. Discussed at length my concerns for patient trying for both her safety and others, patient and daughter agree and patient agrees to drive. Did discuss alternative resources including community-based services, virtual appointments, etc. No new symptoms, no change, patient doing very well. No further work-up including imaging or laboratory studies warranted at this time. Patient would like to keep current regimen of her medication as she is doing well with this without any side effects. We will not make changes at that time. Discussed with patient and family that should she have any falls, worsening symptoms, leaving the stove on, etc. that she should be reevaluated soon as possible. Patient currently has daily visitors, expressed my concern with living alone and patient and family understand, continue with daily visitation and socialization. Patient and daughter agreeable to treatment plan of care at this time, all questions were answered. Patient to follow-up in 4 months or sooner should any symptoms change or worsen. Hue Torres PA-C documented in this encounter [facility] 02-06-2023 Miscellaneous Notes Patient has been identified by name and date of : Yes Requested Prescriptions Pending Prescriptions Disp Refills rivastigmine tartrate (EXELON) 1.5 mg capsule 90 capsule 2 Sig: Take 1 capsule by mouth as directed. Take 1 capsule in the morning and 2 capsules at night. Exelon qty 90 capsules with 2 r/f 11/27/2022 Last OV MQ 11/27/2022 Next OV 05/28/2023 Patient requesting refills to cover until 06/2023 d/t appt 05/28/2023. Tiffani Beth LPN ASSESSMENT/PLAN: 1. Dementia without behavioral disturbance, psychotic disturbance, mood disturbance, or anxiety, unspecified dementia severity, unspecified dementia type (HCC) - ICD9: 294.20, ICD10: F03.90 Patient stable since last appointment. Regimen was not changed at last appointment and patient notes that she is doing very well with rivastigmine, 3 tablets a day. No side effects with this, vitals stable. Patient notes her weight is stable, fluctuating between 93 pounds and 103 pounds. Notes that she is eating all day, no decrease in appetite. No falls, no new neurologic symptoms. Patient does note some grogginess in the morning when she wakes up that would last for few minutes. Does have history of low blood pressure, discussed that she may want to drink a glass of water as soon as she wakes up due to history of low blood pressure as this may be an orthostatic issue. Patient agrees would like to try this. No dizziness, lightheadedness, new neurologic symptoms. Regarding medications, patient is doing well on her current regimen and does not want make changes at this time. I agree with continuing regimen and keeping an eye on her weight. Regarding driving, patient expressed concern about not being able to drive as it limits her independence. Last MoCA was and we did speak to her driving at last appointment in depth. Patient does have significant visual-spatial deficits that would make driving unsafe. However, due to patient's wish for further evaluation, did put in referral for occupational therapy for formal driving evaluation. Patient is currently not driving, encouraged to not drive until his evaluation is completed. Patient and daughter are agreeable to treatment plan of care at this time, all questions were answered. As patient is doing well and is stable, patient to follow-up in 5 to 6 months or sooner should any symptoms change or worsen. Refill of rivastigmine sent. Hue Torres PA-C documented in this encounter [facility] 01-20-2023 Miscellaneous Notes Patient phones requesting refills as follows: Requested Prescriptions Pending Prescriptions Disp Refills alendronate (FOSAMAX) 35 mg tablet 12 tablet 1 Sig: Take on empty stomach in the morning with 8 oz of water. After taking do not have food, drink, medications, or supplements for at least one half-hour. Take 1 tablet PO once each week. ROSEMARIE 09/04/22 JOE NOV 03/13/23 DK Please review and advise. Simone Trevino documented in this encounter [facility] 01-16-2023 Miscellaneous Notes Pt's daughter notified of results and instructions. Santiago Pineda LPN Let daughter Marimar the us of the neck artery shows no increase in the narrowing of Guicho's neck. No changes needed. Received results of pt's carotid US. Santiago Pineda MONUMENT LETTERER Scan on 01/15/2023 3:43 PM by Provider, VICTOR MANUEL Escudero: Ultrasound documented in this encounter [facility] 01-08-2023 Miscellaneous Notes Letter was taken to medical records. Keerthi Go MA Let Marimar know letter is ready to be picked up. documented in this encounter [facility] 12-10-2022 Miscellaneous Notes Order faxed to [facility] along with [employer]. Notified via Smartdate that they can call to schedule. Sameera Roth Ma documented in this encounter [facility] 09-04-2022 Instructions Bairon Torres MD - 09/04/2022 5:46 PM EDT Please get labs done on or after 02/21/2023 prior to your next visit. documented in this encounter [facility] 09-04-2022 History of Present illness Narrative Medicare Yearly Visit Medical B eligibilty date Not able to find Date of last exam NA PAST MEDICAL HISTORY Diagnosis Date Advance directive discussed with patient 03/06/2022 Discussed 03/2022: up to date Benign neoplasm of colon Bilateral carotid artery stenosis 01/08/2022 US: 07/2021 Allen 40-60% Chronic ITP (idiopathic thrombocytopenia) ([facility]) 06/10/2013 Dementia of the Alzheimer's type, with late onset, uncomplicated ([facility]) 05/08/2022 Diverticulosis of colon (without mention of hemorrhage) Dysmetabolic syndrome X 07/09/2005 Elevated blood sugar 07/23/2021 Elevated TSH 07/23/2021 Encounter for Medicare annual wellness exam 09/04/2022 Medicare Part B: Not able to find Last done: 09/04/2022 Family history of malignant neoplasm of gastrointestinal tract 01/09/2005 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/08/2012 Hydrocephalus in diseases classified elsewhere ([facility]) 04/01/2022 Internal hemorrhoids without mention of complication ITP (idiopathic thrombocytopenic purpura) History of episode in 1999 Lactose intolerance 02/23/2016 Living will on file at physician's office 03/06/2022 DPA: Marimar and Luma (daughter's) Mixed hyperlipidemia Osteoporosis 12/02/2018 Rosacea 09/14/2009 Stage 3a chronic kidney disease (HCC) 07/18/2020 Unspecified glaucoma(365.9) PAST SURGICAL HISTORY Procedure Laterality Date COLONOSCOPY FLX DX W/COLLJ SPEC WHEN PFRMD 03/20/05 Colonoscopy COLONOSCOPY FLX DX W/COLLJ SPEC WHEN PFRMD 08/29/10 COLONOSCOPY W/BIOPSY SINGLE/MULTIPLE 09-30-13 EGD TRANSORAL BIOPSY SINGLE/MULTIPLE 09-30-13 GASTROESOPHAG REFLX TEST W/TELEMTRY PH ELTRD 09-30-13 PH PROBE LAPS RPR PARAESPHGL HRNA INCL FUNDPLSTY W/O MESH 10-9-14 PAST SURGICAL HISTORY OF 1957 growth of ovary/growth off bowell/appendectomy PAST SURGICAL HISTORY OF 1967 tumor removed behind naval PAST SURGICAL HISTORY OF 05/2007 knee surgery PAST SURGICAL HISTORY OF 2011 bilateral cataract PAST SURGICAL HISTORY OF bilat great toe repair PAST SURGICAL HISTORY OF left shoulder repair, arthoscopy TONSILLECTOMY PRIMARY/SECONDARY <AGE 14 Tonsillectomy TOTAL ABDOMINAL HYSTERECT W/WO RMVL TUBE OVARY 1984 Hysterectomy, MOOSE ALLERGIES: Asa [Salicylates], Ibuprofen, Penicillins, and Aricept [Donepezil] Medications reviewed: Yes FAMILY HISTORY Problem Relation Age of Onset Diabetes Mother feeding tube Stroke Father colon cancer Heart Brother aneurysm behind heart Aneurysm Brother stomach SOCIAL HISTORY: Social History Tobacco Use Smoking status: Never Smokeless tobacco: Never Substance Use Topics Alcohol use: No Guicho is more or less sedentary occasionally exercising in the form of walking. She watches her diet for sodium, low fat and low cholesterol generally not very much. List of current specialists seen: Jason (Neuro) Optho End of Live Planning discussed including patients advanced directive wishes: Yes I am willing to follow Guicho's advanced directives. PHQ-2 / Depression screen ; no depression or anxiety in the past 2 weeks Functional Ability/Safety Screen 1. Was the patient's timed Up and Go test unsteady or longer than 30 seconds? No 2. Does the patient need help with the phone, transportation, shopping,preparing meals, housework, laundry, medications or managing money? Her daughter helps with finances. 3. Does your home have rugs in the hallway, lack of grab bars in the bathroom(Y), lack of handrails on the stairs or have poor lighting? No Hearing Evaluation: normal PHYSICAL EXAM BP 138/84 (BP Site: Right Arm, BP Position: Sitting, BP Cuff Size: Regular Adult) Pulse 74 Resp 16 Wt 43.5 kg (96 lb) BMI 17.14 kg/m Alert and oriented X 3: patient with known dementia Body mass index is 17.14 kg/m . Visual acuity: optho See below ASSESSMENT/PLAN: 87 year old female The following prevention plan was discussed during the office visit and provided to the patient: See below Bairon Torres MD Chief Complaint Patient presents with: Medicare Wellness Exam HPI Guicho Martinez is a 87 year old female who presents here today for Chronic Medical Conditions. and Medicare Annual Visit. Office visit - medicare wellness Patient with Hx of hyperlipidemia, Carotid artery stenosis, elevated TSH, elevated blood sugar, CKD, lactose intolerance, rosacea, osteoporosis, dementia, diverticulosis as well as those reviewed and addressed below and in ROS. Has been doing well on the Exelon without side affects. No new issues or concerns. Office visit - dementia 05/02/2022 Patient was recently in the hospital for a lower GI bleed. Her Hg never dropped and did not need transfused. [place] this was a ruptured diverticulosis blood vessel. Patient did have a colonoscopy and only thing found was some ischemic colitis and that this should resolve and chances of recurrence was less then 10%. A CT angio not needed at this time. Is seeing Gastro. Patient was started on Zenpen and this has helped with preventing loose stools when eating fatting/greasing foods per gastro recently and seems to be helping a lot. Patient has been on Exelon 1.5 mg once a day. Has bene able to tolerate without issues. Patient feels there may be a slight improvement. Past medical history, appointments, medications, allergies reviewed. Previous Medical History PAST MEDICAL HISTORY Diagnosis Date Advance directive discussed with patient 03/06/2022 Discussed 03/2022: up to date Benign neoplasm of colon Bilateral carotid artery stenosis 01/08/2022 US: 07/2021 Allen 40-60% Chronic ITP (idiopathic thrombocytopenia) (HCC) 06/10/2013 Dementia of the Alzheimer's type, with late onset, uncomplicated (HCC) 05/08/2022 Diverticulosis of colon (without mention of hemorrhage) Dysmetabolic syndrome X 07/09/2005 Elevated blood sugar 07/23/2021 Elevated TSH 07/23/2021 Family history of malignant neoplasm of gastrointestinal tract 01/09/2005 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/08/2012 Internal hemorrhoids without mention of complication ITP (idiopathic thrombocytopenic purpura) History of episode in 1999 Lactose intolerance 02/23/2016 Living will on file at physician's office 03/06/2022 DPA: Marimar and Luma (daughter's) Mixed hyperlipidemia Osteoporosis 12/02/2018 Rosacea 09/14/2009 Stage 3a chronic kidney disease (HCC) 07/18/2020 Unspecified glaucoma(365.9) Previous Surgical History PAST SURGICAL HISTORY Procedure Laterality Date COLONOSCOPY FLX DX W/COLLJ SPEC WHEN PFRMD 03/20/05 Colonoscopy COLONOSCOPY FLX DX W/COLLJ SPEC WHEN PFRMD 08/29/10 COLONOSCOPY W/BIOPSY SINGLE/MULTIPLE 09-30-13 EGD TRANSORAL BIOPSY SINGLE/MULTIPLE 09-30-13 GASTROESOPHAG REFLX TEST W/TELEMTRY PH ELTRD 09-30-13 PH PROBE LAPS RPR PARAESPHGL HRNA INCL FUNDPLSTY W/O MESH 12-09-13 PAST SURGICAL HISTORY OF 1957 growth of ovary/growth off bowell/appendectomy PAST SURGICAL HISTORY OF 1967 tumor removed behind naval PAST SURGICAL HISTORY OF 05/2007 knee surgery PAST SURGICAL HISTORY OF 2011 bilateral cataract PAST SURGICAL HISTORY OF bilat great toe repair PAST SURGICAL HISTORY OF left shoulder repair, arthoscopy TONSILLECTOMY PRIMARY/SECONDARY <AGE 14 Tonsillectomy TOTAL ABDOMINAL HYSTERECT W/WO RMVL TUBE OVARY 1985 Hysterectomy, MOOSE Family History FAMILY HISTORY Problem Relation Age of Onset Diabetes Mother feeding tube Stroke Father colon cancer Heart Brother aneurysm behind heart Aneurysm Brother stomach Patient Allergies ALLERGIES Allergen Reactions Asa [Salicylates] Other: See Comments Hx of low plateletes Ibuprofen Hives Penicillins Other: See Comments passed out Aricept [Donepezil] Other: See Comments Nausea, vomiting and dizziness. Current Medications Current Outpatient Medications on File Prior to Visit Medication Sig rivastigmine tartrate (EXELON) 1.5 mg capsule Take 1 capsule by mouth as directed. Take 1 capsule in the morning and 2 capsules at night. alendronate (FOSAMAX) 35 mg tablet Take on empty stomach in the morning with 8 oz of water. After taking do not have food, drink, medications, or supplements for at least one half-hour. Take 1 tablet PO once each week. rosuvastatin (CRESTOR) 10 mg tablet Take 1 tablet by mouth every other day. qoxiaz-skwsrfai-ekawkhr (ZENPEP) 40,000-126,000- 168,000 unit delayed release capsule Take by mouth three times daily with meals. cholecalciferol, vitamin D3, (VITAMIN D3 ORAL) Take 1,000 Units by mouth once daily. (Patient not taking: Reported on 06/21/2022) BIOTIN ORAL Take 10,000 mcg by mouth once daily. calcium carbonate/vitamin D3 (CALCIUM 600 + D ORAL) Take 1 tablet by mouth twice daily. hydroxychloroquine (PLAQUENIL) 200 mg tablet Take 1.5 tablets by mouth once daily. Per rheumatology (Patient taking differently: Take 300 mg by mouth once daily. Take one tablet daily. Per rheumatology) calcium carbonate-vitamin D (OS-DEBBI 250 W/D) 250 (625)-125 mg-unit tab Take 1 tablet by mouth once daily. LUMIGAN 0.03 % EYE DROPS one drop each eye nightly THERAPEUTIC MULTIVITAMIN TAB Take one(1) tablet daily. No current facility-administered medications on file prior to visit. Social History Social History Tobacco Use Smoking status: Never Smokeless tobacco: Never Substance Use Topics Alcohol use: No Review of Symptoms REVIEW OF SYSTEMS GENERAL: No weight loss, malaise or fevers HEENT: Negative for frequent or significant headaches, No changes in hearing or vision, no nose bleeds or other nasal problems NECK: Negative for lumps, goiter, pain and significant neck swelling RESPIRATORY: Negative for cough, hemoptysis, wheezing, COPD, dyspnea or shortness of breath CARDIOVASCULAR: Negative for chest pain, leg swelling, hypertension, CHF or palpitations GI: No nausea, vomiting, or diarrhea, No heartburn or reflux symptoms, and no blood : No history of dysuria, frequency or blood. MUSCULOSKELETAL: Negative for joint pain or swelling, back pain or muscle pain SKIN: Negative for lesions, rash, and itching PSYCH: Negative for sleep disturbance, mood disorder and recent psychosocial stressors HEMATOLOGY/LYMPHOLOGY: Negative for prolonged bleeding, bruising easily or swollen nodes ENDOCRINE: Negative for cold or heat intolerance, polyuria, polydipsia and goiter NEURO: No history of headaches, syncope, paralysis, seizures or tremors EXAM: BP 138/84 (BP Site: Right Arm, BP Position: Sitting, BP Cuff Size: Regular Adult) Pulse 74 Resp 16 Wt 43.5 kg (96 lb) BMI 17.14 kg/m Last 5 Encounter Wt Readings: Date: Wt: 09/04/2022 43.5 kg (96 lb) 07/24/2022 43.2 kg (95 lb 3.2 oz) 06/21/2022 43.5 kg (96 lb) 05/08/2022 44 kg (97 lb) 03/06/2022 44.9 kg (99 lb) General Appearance: Well appearing, alert, in no acute distress, well-hydrated, well nourished. and Thin. Skin: Skin color, texture, turgor normal, no suspicious rashes or lesions. Head: Normocephalic, no masses, lesions, tenderness or abnormalities. Eyes: Anicteric sclera. Pupils are equally round and reactive to light. Extraocular movements are intact. . Ears: External ears, TM's normal, canals clear. Nose/Sinuses: Nares normal, septum midline, mucosa normal, no drainage or sinus tenderness. Oropharynx: Lips, mucosa, and tongue normal, teeth and gums normal, oropharynx normal. Neck: Supple, no adenopathy; thyroid symmetric, normal size, no bruits. Lungs: Lungs clear to auscultation. No wheezing, rhonchi, rales.. Heart: RRR without murmur, gallop, or rubs. No ectopy. Abdomen: Normal abdominal exam, Abdomen soft, non-tender. Bowel sounds normal. No masses, organomegaly. Extremities: No deformities, edema, skin discoloration, Good capillary refill. . Musculoskeletal: Muscular strength intact, No joint swelling, deformity, or tenderness. Peripheral Pulses: Normal. Neurologic: Gait normal. Reflexes normal and symmetric. Sensation to light touch and crainal nerves 2-12 intact.. Health Maintenance List DTAP,TDAP,TD(3 - Tdap) due on 03/06/2023 INFLUENZA(1) due on 11/01/2022 DIABETES SCREEN due on 08/17/2025 BONE DENSITY Completed ADVANCE DIRECTIVE DISCUSSION Completed SHINGRIX VACCINE Completed COVID-19 VACCINE Completed PNEUMOCOCCAL: 65+ Completed Data reviewed Component Latest Ref Rng & Units 02/14/2022 08/17/2022 08/24/2022 WBC 3.70 - 11.00 k/uL 5.83 5.53 RBC 3.90 - 5.20 m/uL 4.24 4.11 Hemoglobin 11.5 - 15.5 g/dL 13.4 12.9 Hematocrit 36.0 - 46.0 % 41.3 40.1 MCV 80.0 - 100.0 fL 97.4 97.6 MCH 26.0 - 34.0 pg 31.6 31.4 MCHC 30.5 - 36.0 g/dL 32.4 32.2 RDW-CV 11.5 - 15.0 % 12.0 12.1 Platelet Count 150 - 400 k/uL 251 212 MPV 9.0 - 12.7 fL 10.2 10.2 Neut% % 65.7 68.0 Abs Neut (ANC) 1.45 - 7.50 k/uL 3.83 3.76 Lymph% % 20.9 20.1 Abs Lymph 1.00 - 4.00 k/uL 1.22 1.11 [place]% % 10.6 7.6 Abs [place] <0.87 k/uL 0.62 0.42 Eosin% % 2.1 3.4 Abs Eosin <0.46 k/uL 0.12 0.19 Baso% % 0.5 0.5 Abs Baso <0.11 k/uL 0.03 0.03 Immature Gran % % 0.2 0.4 IMMATURE GRANS (ABS) <0.10 k/uL <0.03 <0.03 NRBC /100 WBC 0.0 0.0 Absolute nRBC <0.01 k/uL <0.01 <0.01 DTYPE Auto Auto Protein, Total 6.3 - 8.0 g/dL 7.1 7.1 Albumin 3.9 - 4.9 g/dL 4.4 4.4 Calcium 8.5 - 10.2 mg/dL 9.7 10.0 Bilirubin, Total 0.2 - 1.3 mg/dL 0.6 0.5 Alkaline Phosphatase 34 - 123 U/L 74 68 AST 13 - 35 U/L 24 25 ALT 7 - 38 U/L 15 13 Glucose 74 - 99 mg/dL 72 (L) 132 (H) BUN 7 - 21 mg/dL 13 14 Creatinine 0.58 - 0.96 mg/dL 1.01 (H) 1.02 (H) Sodium 136 - 144 mmol/L 136 142 Potassium 3.7 - 5.1 mmol/L 4.0 4.3 Chloride 97 - 105 mmol/L 99 103 CO2 22 - 30 mmol/L 25 29 Anion Gap 9 - 18 mmol/L 12 10 eGFR >=60 mL/min/1.73m 55 (L) 54 (L) Color Yellow Light Yellow Colorless Clarity Clear Clear Clear Glucose, Urine Trace, Negative Negative Negative Bilirubin, Urine Negative Negative Negative Ketones, Urine Trace, Negative Negative Negative Specific [place], Ur 1.005 - 1.030 1.012 1.005 Hemoglobin/Blood,Ur Negative, Trace Negative Negative pH, Urine 5.0 - 8.0 6.5 7.0 Protein, Urine Trace, Negative Negative Negative Urobilinogen Negative Negative Negative Nitrites Negative Negative Negative Leukest Negative, 25 Kilo/uL Negative 250 Kilo/uL (A) WBC, Urine 0-5 /HPF 0-5 /HPF 11-25 /HPF (A) RBC, Urine 0-3 /HPF 3-5 /HPF (A) 0-3 /HPF Epithelial Cells /HPF Few Few Total Cholesterol, Nonfasting <200 mg/dL 195 146 Triglycerides, Nonfasting <150 mg/dL 87 102 HDL Cholesterol, Nonfasting >39 mg/dL 63 54 LDL Cholesterol, Nonfasting <100 mg/dL 115 (H) 72 Non HDL Cholesterol, Nonfasting <130 mg/dL 132 (H) 92 VLDL Cholesterol, Nonfasting <30 mg/dL 17 20 Total Chol/HDL Ratio, Nonfasting <5.10 mg/dL 3.10 2.70 LDL/HDL Ratio, Nonfasting <2.54 mg/dL 1.83 1.33 Hemoglobin A1C 4.3 - 5.6 % 5.1 5.3 Estimated Average Glucose mg/dL 100 105 Vitamin D 25 Hydroxy 31.0 - 80.0 ng/mL 90.0 (H) 72.4 TSH 0.270 - 4.200 mIU/L 3.480 2.720 A/P ASSESSMENT/PLAN: 1. Encounter for Medicare annual wellness exam - ICD9: V70.0, ICD10: Z00.00 (primary diagnosis) - Counseled on healthy diet and regular exercise - Calcium intake with supplements or by diet of 1000 mg/day for under 50, 6639-3936 mg/day for 50+ - Follow up for annual exam in one year 2. Mixed hyperlipidemia - ICD9: 272.2, ICD10: E78.2 - Controlled - Improving control - Continue current medications - Counseled on healthy diet and regular exercise 3. Elevated blood sugar - ICD9: 790.29, ICD10: R73.9 - good A1c with life style changes. 4. Elevated TSH - ICD9: 794.5, ICD10: R79.89 - recent lab was normal. 5. Bilateral carotid artery stenosis - ICD9: 433.10, 433.30, ICD10: I65.23 - check US 6. Stage 3a chronic kidney disease (HCC) - ICD9: 585.3, ICD10: N18.31 - stable no changes. 7. Dementia of the Alzheimer's type, with late onset, uncomplicated (HCC) - ICD9: 331.0, 294.10, ICD10: G30.1, F02.80 - management per neuro 8. Glaucoma, unspecified glaucoma type, unspecified laterality - ICD9: 365.9, ICD10: H40.9 - management per Optho 9. Hydrocephalus in diseases classified elsewhere (HCC) - ICD9: 331.7, ICD10: G91.4 - seeing neuro and felt to not be a concern. Requested Prescriptions Pending Prescriptions Disp Refills rosuvastatin (CRESTOR) 10 mg tablet 45 tablet 1 Sig: Take 1 tablet by mouth every other day. F/u 6 months routine check lipid, LFT's and A1c prior I spent a total of 40 minutes on the date of the service which included preparing to see the patient, [id number] patient care, completing clinical documentation, performing a medically appropriate examination, counseling and educating the patient/family/caregiver and ordering medications, tests, or procedures. Bairon Torres MD documented in this encounter [facility] 08-29-2022 Miscellaneous Notes As requested by patient daughter, MC message sent notifying of script and instructions. Nothing further at this time. SALTY Coleman RF sent. TC to daughter Alice to clarify all of the below. Alice states that Guicho has been receiving 1.5 mg in the morning (1 capsule) and 3 mg at night (2 capsules). She states this has been going well and the patient has had no side effects. Alice would like to keep her on the current dosage and does not want to make any adjustments until it can be discussed at the follow up visit with in November. Alice is asking that a new script be sent to the [facility] in [place] with the instructions take 1 capsule in the morning and 2 capsules at night with the dosage being 1.5 mg. Alice also states she has spoken with [facility] pharmacy and they are able to mail medication to patient, therefore daughter is asking for 2 refills to be available as well. This staff pended script if provider is agreeable. SALTY Coleman Patient's daughter Alice called in and has some questions about mother's medication. Please call her at [phone]. Per last OV with MQ on 07/24/22 note reads Exelon increased to 3mg and per previous note at OV with Dr. Gomez on 06/21/22 will increase to 3.0mg BID. Prescription sent to reflect this, however, if she is only taking 1tab in AM and 2 tabs in PM please have her continue this dose. She can use current prescription but make that adjustment or I can provide new prescription to a different pharmacy that has this medication in stock. TC to pharmacy who states that medication is on hold because they do not have it in stock. The pharmacy will have to order the medication which will take until this Friday. Also, directions on the script state to take 2 capsules twice daily. In looking over the OV note from June that the patients daughter is referring there are no specific times to take the medication. The OV note states Discussed with pt and family and at this time feel appropriate to try and increase Exelon from 1.5mg BID to 3.0mg BID. SE and ADRs d/w pt and family. They would like to do gradually and thus will first place on 1.5mg in AM and 3.0mg in PM for 1 week. However, they will contact us after that week and if no SEs, will increase to 3.0mg BID. Also advised that if any side effects to immediately go back to current dosing. Please advise if script as written will be sufficient. Thank you. SALTY Coleman documented in this encounter [facility] 08-28-2022 Miscellaneous Notes Notified the patient's daughter that the new RX was sent. Updated prescription sent to [facility]. Please send corrected dosage RX to [facility]. Daughter called, she is at [facility]. She is trying to belt picker the RX. The RX was increased back in June 21 office visit. The patient will be out of medication. The patient needs a new RX with the increase dosage. Please order daughter is waiting at the pharmacy. 06/21/22 Assessment and Plan: ASSESSMENT/PLAN: 1. Dementia without behavioral disturbance, psychotic disturbance, mood disturbance, or anxiety, unspecified dementia severity, unspecified dementia type (HCC) - ICD9: 294.20, ICD10: F03.90 Patient with reports of memory deficits and cognitive decline as above. Prior to evaluation today was treated by PCP with Aricept (side effects and discontinued) and more recently Exelon. Referred for concerns of possibly hydrocephalus on MRI brain. However, I reviewed images and central atrophy appears to correlate with cortical atrophy and pt does NOT endorse the symptoms of NPH triad -- denies ataxia and bladder/urinary incontinence. Initially, history provided by pt and family suggestive of minimal cognitive impairment and thus perhaps MCI. However, patient with significant difficulties throughout MOCA testing today, including impairment on immediately recall and an overall score of 14/29 and thus, suspect the patient in fact has a progressive dementia that is likely causing more impairments than realized. Note she denies mood disorder and metabolic workup was unremarkable. Discussed with pt and family and at this time feel appropriate to try and increase Exelon from 1.5mg BID to 3.0mg BID. SE and ADRs d/w pt and family. They would like to do gradually and thus will first place on 1.5mg in AM and 3.0mg in PM for 1 week. However, they will contact us after that week and if no SEs, will increase to 3.0mg BID. Also advised that if any side effects to immediately go back to current dosing. Brain exercises encouraged. Discussed need for closer care at home and possible need for 24 hour care. Explained to family they will need to better assess patient's home needs. Finally advised pt not to drive or operate heavy machinery given cognitive decline and concern for impairment when operating either. Pt will follow up in 8 weeks to see how she is doing and consider further medication changes. Josue Gomez MD documented in this encounter [facility] 08-28-2022 History of Present illness Narrative Exelon dose increased to 3.0mg BID per 06/21/[address] Gomez. Updated prescription sent to pharmacy. documented in this encounter [facility] 08-28-2022 Miscellaneous Notes Prescription was sent by neuro. Closing encounter. documented in this encounter [facility] 08-28-2022 Miscellaneous Notes ROSEMARIE 07/24/22 with MQ NOV 11/27/22 with MQ Refill 06/25/22 with qty: 180 and 0 refills Pt is taking 3 caps daily 1.5 in AM and 3.0 mg in PM Zoey Figueroa LPN ROSEAMRIE Assessment/Plan ASSESSMENT/PLAN: 1. Dementia without behavioral disturbance, psychotic disturbance, mood disturbance, or anxiety, unspecified dementia severity, unspecified dementia type (HCC) - ICD9: 294.20, ICD10: F03.90 Patient with subjective improvement in after increasing short-term memory and overall well being after increasing rivastigmine at last appointment. Denies any side effects, no falls, no new symptoms. Daughter confirms improvement in short-term memory as well. Patient is alone, daughter and patient without any concerns for her safety at this time, no leaving the stove on, no falls, does have stairs in her house but has no difficulty going up and down them. Patient does not drive, expresses concern for this as she has many appointments and has limited resources in order to get to these appointments. Okay stable at 15/30, but there is significant deficits visual-spatial ability. Discussed at length my concerns for patient trying for both her safety and others, patient and daughter agree and patient agrees to drive. Did discuss alternative resources including community-based services, virtual appointments, etc. No new symptoms, no change, patient doing very well. No further work-up including imaging or laboratory studies warranted at this time. Patient would like to keep current regimen of her medication as she is doing well with this without any side effects. We will not make changes at that time. Discussed with patient and family that should she have any falls, worsening symptoms, leaving the stove on, etc. that she should be reevaluated soon as possible. Patient currently has daily visitors, expressed my concern with living alone and patient and family understand, continue with daily visitation and socialization. Patient and daughter agreeable to treatment plan of care at this time, all questions were answered. Patient to follow-up in 4 months or sooner should any symptoms change or worsen. Hue Torres PA-C documented in this encounter [facility] 08-26-2022 Miscellaneous Notes The following approved medication requests have been transmitted electronically. Requested Prescriptions Signed Prescriptions Disp Refills alendronate (FOSAMAX) 35 mg tablet 12 tablet 1 Sig: Take on empty stomach in the morning with 8 oz of water. After taking do not have food, drink, medications, or supplements for at least one half-hour. Take 1 tablet PO once each week. Authorizing Provider: BAIRON TORRES MD Last office visit: 05/08/22 F/u scheduled: 09/04/22 Sameera Roth Ma documented in this encounter [facility] 07-15-2022 Miscellaneous Notes Requested Prescriptions Signed Prescriptions Disp Refills rosuvastatin (CRESTOR) 10 mg tablet 45 tablet 1 Sig: Take 1 tablet by mouth every other day. Authorizing Provider: BAIRON TORRES Patient has been identified by name and date of : Yes Requested Prescriptions Pending Prescriptions Disp Refills rosuvastatin (CRESTOR) 10 mg tablet 45 tablet 1 Sig: Take 1 tablet by mouth every other day. RX INSTRUCTIONS: Patient aware RX will be sent to pharmacy. No need to notify patient. Patient last office visit: 05/08/22 Patient next office visit: 09/04/22 Teresa Short MA documented in this encounter [facility] 06-28-2022 Miscellaneous Notes Spoke to [facility] pharmacy and they said a script was sent in and is ready to be picked up. TC to pt daughter to let her know. She was agreeable. Zoey Figueroa LPN Patients daughter returned call, patient would like to take 1.5 mg in the AM and 3.0 mg in the PM. She is tolerating this dose and will discuss further at upcoming appointment. She will not have enough for the weekend if a new prescription is not sent in today. Please advise. TC to daughter, left VM to return call. RX was sent on 06/25/22 to [facility]. Please confirm pt does not want 3.0 mg daily. Enough for until her next appointment was sent in. Zoey Figueroa LPN I believe a Rx was sent in. However would like to confirm that patient does not wish to increase to 3.0mg twice daily. Josue Gomez MD Patients daughter calling, states that they need a new prescription sent to the pharmacy for the Exelon. Patient has been taking 1 tablet in the AM and 2 tablets in the PM. She has been doing very well and they would like to continue on this dose. Patient has an appt on 07/27 so they are asking for medication to be sent to at least get them to that appointment. Patient does not have enough medication to get them through the weekend. Please advise. documented in this encounter [facility] 06-21-2022 History of Present illness Narrative NEW PATIENT (CONSULT) HISTORY AND PHYSICAL EXAM PRIMARY CARE PHYSICIAN: Bairon Torres MD REASON FOR CONSULT: Memory Loss REFERRING PHYSICIAN: Bairon Torres MD CHIEF COMPLAINT: Memory Loss Consultation requested by Bairon Torres MD for an opinion regarding chief complaint of Patient presents with: Memory Loss and my final recommendations will be communicated back to the requesting physician by way of shared medical record or letter via US mail. HISTORY OF PRESENT ILLNESS: Guicho Martinez is a 87 year old female, BMI 17.14 kg/m2 with a PMH significant for that below. Pt evaluated by PCP for memory loss. Pt indicates forgetting names. Never lost driving. Lived in [place] most of her life and is familiar with [place]. No issues with family members names. Losing things around the house, but eventually finds everything. No major events like leaving strove top on or water running. When talking, states things will leave her in the midst of a conversation. Recalls most conversations but does often repeat what she tells someone already in the past. Daughter states some OCD - cannot take part in her interests as always has something else she needs to do. No falls or ataxia. No loss of bladder control. MRI brain on 04/01/2022 per rad report: 1. Age expected senescent changes. 2. No acute disease. 3. Possibility of NPH should be considered clinically. I reviewed images and central atrophy appears consistent with extent of cortical atrophy. No acute process. Note temp lobe atrophy. Pt currently on Exelon 1.5mg for past 1 month and they feel a change. Previously tried on Aricept but resulted in dehydration. Pt living by self. TSH Date Value Ref Range Status 02/14/2022 3.480 0.270 - 4.200 mIU/L Final Vitamin B12 Date Value Ref Range Status 07/23/2021 1,534 (H) 232-1,245 pg/mL Final MODIFIED MOCA: Immediate Recall: 2/5 (first try), 3/5 (second through multiple tries). Number repeat: 2/2 Sentence repeat: 2/2 Similar objects: 2/2 Serial 7s: 100-95 0 Orientation: , Friday, [place], X 5/ Delayed Recall: 03/07 (3/ with cue) Naming: (Rhino=Hippo, Giraffe=Camel) 0 Cube Drawin A tap: 03/03 A-1-B-2-C-3... 0 Clock Drawing (1 for diomede) 03/05 TOTAL: REVIEW OF SYSTEMS GENERAL:No weight loss, malaise or fevers. HEENT:Negative for frequent or significant headaches, No changes in hearing or vision, no nose bleeds or other nasal problems NECK:Negative for lumps, goiter, pain and significant neck swelling RESPIRATORY: Negative for cough, wheezing or shortness of breath. CARDIOVASCULAR: Negative for chest pain, leg swelling or palpitations. GASTROINTESTINAL: Negative for abdominal discomfort, blood in stools or black stools or change in bowel habits GENITOURINARY: No history of dysuria, frequency or incontinence MUSCULOSKELETAL: Negative for joint pain or swelling, back pain or muscle pain. NEUROLOGIC:Negative for focal numbness or weakness, headaches and dizziness or syncope, vision changes, speech/language changes, changes in gait or falls -- besides those complaints as above in HPI. SKIN:Negative for lesions, rash, and itching. PSYCHIATRIC: Denies depression or anxiety. HEMATOLOGIC/LYMPHATIC/IMMUNOLOGIC :Negative for prolonged bleeding, bruising easily or swollen nodes. ENDOCRINE: Negative for cold or heat intolerance, polyuria, polydipsia and goiter. The remainder of the ROS was reviewed and is negative. LAB/IMAGING: Reviewed and include: WBC (k/uL) Date Value 02/14/2022 5.83 RBC (m/uL) Date Value 02/14/2022 4.24 Hemoglobin (g/dL) Date Value 02/14/2022 13.4 Hematocrit (%) Date Value 02/14/2022 41.3 MCV (fL) Date Value 02/14/2022 97.4 MCH (pg) Date Value 02/14/2022 31.6 MCHC (g/dL) Date Value 02/14/2022 32.4 RDW-CV (%) Date Value 02/14/2022 12.0 Platelet Count (k/uL) Date Value 02/14/2022 251 MPV (fL) Date Value 02/14/2022 10.2 Glucose (mg/dL) Date Value 02/14/2022 72 (L) BUN (mg/dL) Date Value 02/14/2022 13 Creatinine (mg/dL) Date Value 02/14/2022 1.01 (H) Sodium (mmol/L) Date Value 02/14/2022 136 Potassium (mmol/L) Date Value 02/14/2022 4.0 Chloride (mmol/L) Date Value 02/14/2022 99 CO2 (mmol/L) Date Value 02/14/2022 25 Protein, Total (g/dL) Date Value 02/14/2022 7.1 Albumin (g/dL) Date Value 02/14/2022 4.4 Calcium, Total (mg/dL) Date Value 02/14/2022 9.7 Alkaline Phosphatase (U/L) Date Value 02/14/2022 74 Bilirubin, Total (mg/dL) Date Value 02/14/2022 0.6 AST (U/L) Date Value 02/14/2022 24 ALT (U/L) Date Value 02/14/2022 15 WON (no units) Date Value 12/11/2017 Negative Rheumatoid Factor (IU/mL) Date Value 12/11/2017 <10 Hep C Antibody IA (no units) Date Value 06/10/2013 Negative MEDICATIONS: vyinef-crbahctf-qfrumqc (ZENPEP) 40,000-126,000- 168,000 unit delayed release capsule Take by mouth three times daily with meals. rivastigmine tartrate (EXELON) 1.5 mg capsule Take 1 capsule by mouth twice daily. alendronate (FOSAMAX) 35 mg tablet Take on empty stomach in the morning with 8 oz of water. After taking do not have food, drink, medications, or supplements for at least one half-hour. Take 1 tablet PO once each week. rosuvastatin (CRESTOR) 10 mg tablet Take 1 tablet by mouth every other day. BIOTIN ORAL Take 10,000 mcg by mouth once daily. calcium carbonate/vitamin D3 (CALCIUM 600 + D ORAL) Take 1 tablet by mouth twice daily. hydroxychloroquine (PLAQUENIL) 200 mg tablet Take 1.5 tablets by mouth once daily. Per rheumatology (Patient taking differently: Take 300 mg by mouth once daily. Take one tablet daily. Per rheumatology) calcium carbonate-vitamin D (OS-DEBBI 250 W/D) 250 (625)-125 mg-unit tab Take 1 tablet by mouth once daily. LUMIGAN 0.03 % EYE DROPS one drop each eye nightly THERAPEUTIC MULTIVITAMIN TAB Take one(1) tablet daily. cholecalciferol, vitamin D3, (VITAMIN D3 ORAL) Take 1,000 Units by mouth once daily. (Patient not taking: Reported on 06/21/2022) HISTORIES PAST MEDICAL HISTORY Diagnosis Date Advance directive discussed with patient 03/06/2022 Discussed 03/2022: up to date Benign neoplasm of colon Bilateral carotid artery stenosis 01/08/2022 US: 07/2021 Allen 40-60% Chronic ITP (idiopathic thrombocytopenia) (HCC) 06/10/2013 Dementia of the Alzheimer's type, with late onset, uncomplicated (HCC) 05/08/2022 Diverticulosis of colon (without mention of hemorrhage) Dysmetabolic syndrome X 07/09/2005 Elevated blood sugar 07/23/2021 Elevated TSH 07/23/2021 Family history of malignant neoplasm of gastrointestinal tract 01/09/2005 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/08/2012 Internal hemorrhoids without mention of complication ITP (idiopathic thrombocytopenic purpura) History of episode in 1999 Lactose intolerance 02/23/2016 Living will on file at physician's office 03/06/2022 DPA: Mitchell (daughter's) Mixed hyperlipidemia Osteoporosis 12/02/2018 Rosacea 09/14/2009 Stage 3a chronic kidney disease (HCC) 07/18/2020 Unspecified glaucoma(365.9) FAMILY HISTORY Problem Relation Age of Onset Diabetes Mother feeding tube Stroke Father colon cancer Heart Brother aneurysm behind heart Aneurysm Brother stomach SOCIAL HISTORY Social History Tobacco Use Smoking status: Never Smokeless tobacco: Never Substance Use Topics Alcohol use: No PHYSICAL EXAMINATION BP 129/56 Pulse 74 Temp 36.1 C (97 F) Resp 16 Wt 43.5 kg (96 lb) SpO2 99% BMI 17.14 kg/m GENERAL EXAM: General appearance: NAD, pleasant. HEENT: NC/AT, nasal congestion absent, no oral lesions, membranes moist. NECK: No masses, supple. Lungs: CTA bilaterally. No wheezes present. CV: RRR nl S1, S2, no murmurs. No carotid bruits. Abd: Soft, nontender, nondistended. Bowel sounds present. Extr: No cyanosis, clubbing or edema. No evidence of fasciculations. Extremity pulses palpable and normal. Skin: Cool to touch. No rash. NEUROLOGICAL EXAM: General: Awake, alert, oriented x3 (person,place,time), speech fluent, no dysarthria; comprehension, naming, repetition intact. Short and jail memory intact. Fund of knowledge grossly normal by MOCA. CN: PERRL, fundi appear normal including no evidence of papilledema, EOMI and without nystagmus, VFF to confrontation, facial sensation and strength are normal and symmetric, hearing is intact to finger rub bilaterally, palate and tongue movements are intact and symmetric. SCM and trapezius strength normal. Motor: Normal tone, bulk and strength (5/5) bilaterally (throughout extremities x4). Reflexes: 2/4 and symmetric, plantar stimulation is flexor. Coordination: FNF, MURRAY, HTS intact. No tremors. Sensation: LT, PP, vibration, temperature intact throughout. No evidence of neglect. Gait: Narrow based and stable with normal stride and arm swing. Normal tandem. Romberg normal. Assessment and Plan: ASSESSMENT/PLAN: 1. Dementia without behavioral disturbance, psychotic disturbance, mood disturbance, or anxiety, unspecified dementia severity, unspecified dementia type (HCC) - ICD9: 294.20, ICD10: F03.90 Patient with reports of memory deficits and cognitive decline as above. Prior to evaluation today was treated by PCP with Aricept (side effects and discontinued) and more recently Exelon. Referred for concerns of possibly hydrocephalus on MRI brain. However, I reviewed images and central atrophy appears to correlate with cortical atrophy and pt does NOT endorse the symptoms of NPH triad -- denies ataxia and bladder/urinary incontinence. Initially, history provided by pt and family suggestive of minimal cognitive impairment and thus perhaps MCI. However, patient with significant difficulties throughout MOCA testing today, including impairment on immediately recall and an overall score of 14/29 and thus, suspect the patient in fact has a progressive dementia that is likely causing more impairments than realized. Note she denies mood disorder and metabolic workup was unremarkable. Discussed with pt and family and at this time feel appropriate to try and increase Exelon from 1.5mg BID to 3.0mg BID. SE and ADRs d/w pt and family. They would like to do gradually and thus will first place on 1.5mg in AM and 3.0mg in PM for 1 week. However, they will contact us after that week and if no SEs, will increase to 3.0mg BID. Also advised that if any side effects to immediately go back to current dosing. Brain exercises encouraged. Discussed need for closer care at home and possible need for 24 hour care. Explained to family they will need to better assess patient's home needs. Finally advised pt not to drive or operate heavy machinery given cognitive decline and concern for impairment when operating either. Pt will follow up in 8 weeks to see how she is doing and consider further medication changes. Josue Gomez MD I spent a total of 60+ minutes on the date of the service which included preparing to see the patient, [id number] patient care, completing clinical documentation, obtaining and/or reviewing separately obtained history, performing a medically appropriate examination, counseling and educating the patient/family/caregiver, ordering medications, tests, or procedures, independently interpreting results (not separately reported), and communicating results to the patient/family/caregiver. -1. This office note may contain minor typographic errors that escaped review 2. The nursing staff and medical assistants are a major part of YOUR TREATMENT TEAM and will be handling your phone calls and inquiries, if any. Unless explicitly told otherwise at the time of your office visit, your study results and ensuing treatment plans will be discussed during your follow-up appointment. 3. It is my practice to not fill disability or any other insurance or litigation-related forms/documention. All of the office notes, study results, and other pertinent documentation generated as part of your evaluation will be available to you and to your Primary Care Physician (PCP). Use of this material to complete such forms will be at the discretion of your PCP/referring physician. documented in this encounter [facility] 05-18-2022 History of Present illness Narrative Scan on 05/10/2022 11:09 AM by External Provider: Discharge Summary Scan on 05/10/2022 11:12 AM by External Provider: Pathology Scan on 05/15/2022 3:45 PM by External Provider: Hematology Scan on 05/15/2022 4:18 PM by External Provider: Jacki Go MA documented in this encounter [facility] 05-08-2022 History of Present illness Narrative Chief Complaint Patient presents with: Follow Up: Patient is here for follow up on memory. HPI Guicho Martinez is a 86 year old female who presents here today for Above Complaints.. Patient was recently in the hospital for a lower GI bleed. Her Hg never dropped and did not need transfused. [place] this was a ruptured diverticulosis blood vessel. Patient did have a colonoscopy and only thing found was some ischemic colitis and that this should resolve and chances of recurrence was less then 10%. A CT angio not needed at this time. Is seeing Gastro. Patient was started on Zenpen and this has helped with preventing loose stools when eating fatting/greasing foods per gastro recently and seems to be helping a lot. Patient has been on Exelon 1.5 mg once a day. Has bene able to tolerate without issues. Patient feels there may be a slight improvement. Past medical history, appointments, medications, allergies reviewed. 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/08/2012 Internal hemorrhoids without mention of complication ITP (idiopathic thrombocytopenic purpura) History of episode in 1999 Lactose intolerance 02/23/2016 Living will on file at physician's office 03/06/2022 DPA: Marimar and Luma (daughter's) Mixed hyperlipidemia Osteoporosis 12/02/2018 Rosacea 09/14/2009 Stage 3a chronic kidney disease (HCC) 07/18/2020 Unspecified glaucoma(365.9) Previous Surgical History PAST SURGICAL HISTORY Procedure Laterality Date COLONOSCOPY FLX DX W/COLLJ SPEC WHEN PFRMD 03/20/05 Colonoscopy COLONOSCOPY FLX DX W/COLLJ SPEC WHEN PFRMD 08/29/10 COLONOSCOPY W/BIOPSY SINGLE/MULTIPLE 09-30-13 EGD TRANSORAL BIOPSY SINGLE/MULTIPLE 09-30-13 GASTROESOPHAG REFLX TEST W/TELEMTRY PH ELTRD 09-30-13 PH PROBE LAPS RPR PARAESPHGL HRNA INCL FUNDPLSTY W/O MESH 12-09-13 PAST SURGICAL HISTORY OF 1957 growth of ovary/growth off bowell/appendectomy PAST SURGICAL HISTORY OF 1967 tumor removed behind naval PAST SURGICAL HISTORY OF 05/2007 knee surgery PAST SURGICAL HISTORY OF 2011 bilateral cataract PAST SURGICAL HISTORY OF bilat great toe repair PAST SURGICAL HISTORY OF left shoulder repair, arthoscopy TONSILLECTOMY PRIMARY/SECONDARY <AGE 14 Tonsillectomy TOTAL ABDOMINAL HYSTERECT W/WO RMVL TUBE OVARY 1984 Hysterectomy, MOOSE Family History FAMILY HISTORY Problem Relation Age of Onset Diabetes Mother feeding tube Stroke Father colon cancer Heart Brother aneurysm behind heart Aneurysm Brother stomach Patient Allergies ALLERGIES Allergen Reactions Asa [Salicylates] Other: See Comments Hx of low plateletes Ibuprofen Hives Penicillins Other: See Comments passed out Aricept [Donepezil] Other: See Comments Nausea, vomiting and dizziness. Current Medications Current Outpatient Medications on File Prior to Visit Medication Sig dtskqn-lezidoue-eshvgkj (ZENPEP) 40,000-126,000- 168,000 unit delayed release capsule Take by mouth three times daily with meals. rivastigmine tartrate (EXELON) 1.5 mg capsule Take 1 capsule by mouth once daily. alendronate (FOSAMAX) 35 mg tablet Take on empty stomach in the morning with 8 oz of water. After taking do not have food, drink, medications, or supplements for at least one half-hour. Take 1 tablet PO once each week. rosuvastatin (CRESTOR) 10 mg tablet Take 1 tablet by mouth every other day. cholecalciferol, vitamin D3, (VITAMIN D3 ORAL) Take 1,000 Units by mouth once daily. BIOTIN ORAL Take 10,000 mcg by mouth once daily. calcium carbonate/vitamin D3 (CALCIUM 600 + D ORAL) Take 1 tablet by mouth twice daily. calcium carbonate-vitamin D (OS-DEBBI 250 W/D) 250 (625)-125 mg-unit tab Take 1 tablet by mouth once daily. LUMIGAN 0.03 % EYE DROPS one drop each eye nightly THERAPEUTIC MULTIVITAMIN TAB Take one(1) tablet daily. hydroxychloroquine (PLAQUENIL) 200 mg tablet Take 1.5 tablets by mouth once daily. Per rheumatology (Patient taking differently: Take 300 mg by mouth once daily. Take one tablet daily. Per rheumatology) No current facility-administered medications on file prior to visit. Social History Social History Tobacco Use Smoking status: Never Smokeless tobacco: Never Substance Use Topics Alcohol use: No Review of Symptoms REVIEW OF SYSTEMS See HPI EXAM: BP 124/60 (BP Site: Right Arm, BP Position: Sitting, BP Cuff Size: Regular Adult) Pulse 80 Wt 44 kg (97 lb) BMI 17.32 kg/m General Appearance: Well appearing, alert, in no acute distress, well-hydrated, well nourished.. Lungs: Lungs clear to auscultation. No wheezing, rhonchi, rales.. Heart: RRR without murmur, gallop, or rubs. No ectopy. Abdomen: Normal abdominal exam, Abdomen soft, non-tender. Bowel sounds normal. No masses, organomegaly. Health Maintenance List DTAP,TDAP,TD(3 - Tdap) due on 03/06/2023 DIABETES SCREEN due on 02/14/2025 BONE DENSITY Completed INFLUENZA Completed ADVANCE DIRECTIVE DISCUSSION Completed DEPRESSION ASSESSMENT Completed SHINGRIX VACCINE Completed COVID-19 VACCINE Completed PNEUMOCOCCAL: 65+ Completed Data reviewed A/P ASSESSMENT/PLAN: 1. Dementia of the Alzheimer's type, with late onset, uncomplicated (HCC) - ICD9: 331.0, 294.10, ICD10: G30.1, F02.80 - will bump the Exelon to 1.5 mg twice a day an f/u flowre month Requested Prescriptions Signed Prescriptions Disp Refills rivastigmine tartrate (EXELON) 1.5 mg capsule 60 capsule 1 Sig: Take 1 capsule by mouth twice daily. F/u one month Bairon Torres MD documented in this encounter [facility] 04-25-2022 Discharge summary Note Date/Time April 25, 2022 1:17pm [facility] Medical Records Department [address] [place] [address] Discharge Summary 04/25/22 1315 MR#: [id number] Acct: [id number] Name: Jaye MARTINEZ Rep #:[id number] : 1935 86 From: Sameera Jones DO PCP: Dr. Bairon Torres MD Status:ADM [id number] Prov[facility] Date of Admission: 04/24/22 Date of Discharge: 04/25/22 Primary Care Physician: Dr. Bairon Torres MD Consultations 04/24/22 17:18 Consult: Gastroenterology Routine Consulting Provider: [facility] Reason for Consult: Lower GI Bleed EMERGENT Consult: No MD Notified: Yes Date Notified: 04/24/22 Time Notified: 16:56 Method of Notification: ED Physician Initiated Reason For Visit: LOWER GI BLEED Diagnosis Discharge Diagnosis (1) Acute GI bleeding: Status: Acute Code(s): K92.2 - Gastrointestinal hemorrhage, unspecified Medications at Discharge Home Medications bimatoprost 0.03 % drops with applicator, eyelash base 1 drp EACH EYE QHS 06/05/13 alendronate 35 mg tablet 35 mg PO QWEEK 04/24/19 hydroxychloroquine 200 mg tablet 200 mg PO DAILYCM arthritis 04/24/19 biotin 10,000 mcg capsule 10,000 mcg PO DAILY hair growth 04/24/22 zgqfvbzzawnr-grljvvek-ibyqtw tablet 1 tab PO DAILY 04/24/22 rivastigmine tartrate 1.5 mg capsule 1.5 mg PO QHS memory 04/24/22 rosuvastatin 10 mg tablet (Crestor) 10 mg PO QODAY cholesterol 04/24/22 Hospital Course Operations None Procedures Colonoscopy Summary of Care Provided Minutes Spent on Discharge: 28 Hospital Course: Mrs. Martinez is a an 86-year-old white female with no prior history of gastrointestinal issues who was brought to the emergency department by her daughter after having acute bright red blood per rectum. She evidently was getting ready to go outside and went to the bathroom. In the bathroom she had aflush of bright red rectal bleeding that filled the whole toilet bowl with bright red blood. She is not on any anticoagulation or antiplatelet therapy. She had no abdominal pain. She stated she was in her normal state of health andfelt fine when this happened and had no pain during the episode. She denied anydizziness, near-syncope or lightheadedness. Patient reports her last colonoscopy was done in August [address] Coronado and he reported hemorrhoids on perianal exam and diverticulosis in the sigmoid colon and descending colon at that time. Vital signs were unremarkable during the entire hospitalization. CBC on admission was unremarkable with an initial hemoglobin of 12.3. Hemoglobin was drawn 3 times subsequently following that and was found to be 12.4, 13.2, and 12.1. Patient was prepped by gastroenterology for colonoscopy to be done on 04/25/2022. Her rectal bleeding had resolved with the colon prep. And on the morning of 04/25/2022 she was not having any blood in her stool. She was taken for colonoscopy and she was found to have diverticulosis in the rectosigmoid, sigmoid, and descending colon. A small segmental area of moderate inflammation was found in the sigmoid colon consistent with ischemic colitis. This area was biopsied but no active bleeding was noted. Per discussion with gastroenterology given her stable hemoglobin and findings on colonoscopy they felt she was be able to be discharged home. No medication changes were made. They recommended for her to resume her regular diet and await pathology results. No repeat colonoscopy was recommended due to her advanced age at 86 years old. She was able to be discharged home in stable condition on 04/25/2022. I have asked her to follow-up with her primary care physician within the next [address] Sterling's office should call her with the biopsy results. Discharge diagnoses: Acute hematochezia secondary to ischemic colitis-resolved History of anemia-no current anemia identified History of DVT-remote History of dysphagia GERD Hyperlipidemia History of leukemia Rheumatoid arthritis Physical Exam Const alert, oriented x3 and no apparent distress Constitutional Narrative: Thin, elderly white female sitting up in bed, appears comfortable nontoxic General Appearance: cooperative, comfortable, well kempt and well developed Orientation / Consciousness: awake, oriented to person, oriented to place and oriented to time Exam Limitations: no limitations Nutritional Appearance: thin HEENT normocephalic, head/scalp atraumatic and moist oral mucous membranes HEENT Narrative: Mild to moderate hearing loss, dentition is fair for age, Mallampati is 2 Resp normal respiratory effort, no retractions, no use of accessory muscles and clearto auscultation bilaterally Auscultation: Negative for crackles, rhonchi or wheezes Cardio regular rate, regular rhythm, S1 normal heart sound, S2 normal heart sound, no murmurs, no rub, no gallops and no clicks GI normal to inspection, nondistended, normoactive bowel sounds, soft to palpation and non-tender Extremity no clubbing, cyanosis or edema Extremity Narrative: 2+ pedal pulses Neuro oriented x3, moves all extremities and no focal motor deficits Speech: speech normal Psych affect normal Psych Narrative: Very pleasant/appropriately interactive Weight / BMI Weight Weight: 42.4 kg Body Mass Index (BMI) 17.1 ABG / Lab / Microbiology Data Result Diagrams: 04/25/22 04:55 04/25/22 04:55 Laboratory: Laboratory Results - last 24 hr 04/24/22 13:45: WBC 5.5, RBC 3.91 L, Hgb 12.3, Hct 38.0, MCV 97.2, MCH 31.5, MCHC 32.4, RDW Std Deviation 43.2, RDW Coeff of Katiana 12.1, Plt Count 206, MPV 11.2, Immature Gran % (Auto) 0.200, Neut % (Auto) 65.6, Lymph % (Auto) 20.2, [place] % (Auto) 8.0, Eos % (Auto) 5.1 H, Baso % (Auto) 0.9, Absolute Neuts (auto) 3.6, Absolute Lymphs (auto) 1.11, Nucleated RBC % 0 04/24/22 13:45: Sodium 143, Potassium 3.8, Chloride 108 H, Carbon Dioxide 30.0, Anion Gap 5, BUN 14, Creatinine 1.04 H, Estim Creat Clear Calc 27.94, Est GFR (MDRD) Af Amer 65, Est GFR (MDRD) Non-Af 54 L, BUN/Creatinine Ratio 13.5, Glucose 140 H, Calcium 9.5, Total Bilirubin 0.40, Direct Bilirubin 0.12, AST 24,ALT 19, Alkaline Phosphatase 61, Total Protein 6.7, Albumin 3.5, Globulin 3.2 04/24/22 13:45: Magnesium 2.4 04/24/22 14:32: PT 14.5, INR 1.2, APTT 28.7 04/24/22 18:16: Hgb 12.4, Hct 38.3 04/25/22 00:34: Hgb 13.2, Hct 40.9 04/25/22 04:55: WBC 6.9, RBC 3.81 L, Hgb 12.1, Hct 36.7 L, MCV 96.3, MCH 31.8, MCHC 33.0, RDW Std Deviation 41.6, RDW Coeff of Katiana 11.9, Plt Count 227, MPV 9.3, Immature Gran % (Auto) 0.400, Neut % (Auto) 69.2, Lymph % (Auto) 16.2 L, [place] % (Auto) 10.3 H, Eos % (Auto) 3.3, Baso % (Auto) 0.6, Absolute Neuts (auto)4.8, Absolute Lymphs (auto) 1.12, Nucleated RBC % 0 04/25/22 04:55: Sodium 141, Potassium 3.7, Chloride 110 H, Carbon Dioxide 27.0, Anion Gap 4 L, BUN 11, Creatinine 0.97, Estim Creat Clear Calc 29.65, Est GFR (MDRD) Af Amer 70, Est GFR (MDRD) Non-Af 58 L, BUN/Creatinine Ratio 11.4, Glucose 101, Calcium 9.0 Microbiology: Microbiology 04/24/22 23:04 Stool Stool Lactoferrin - Final 04/24/22 23:04 Stool Enteric Bacteriology - Final 04/24/22 23:04 Stool C. difficile DNA Amplification - Final 04/24/22 14:50 Stool Stool Occult Blood (SKY) - Final Occult Blood Positive D/C Instructions Discharge Diet: No restrictions Discharge Activity: Return to Normal Activity Meaningful Use Info Meaningful Use Diagnoses (Choose all that apply): None applicable Discharge Plan Admission Admit Date/Time: 04/24/22 16:52 Primary Reason for Your Visit: rectal bleeding from small area of ischemic colitis Attending Provider: Sameera Jones Primary Care Provider: Bairon Torres Consulting Providers: Eduardo Espinal ; Avni Garcia Instructions Additional Instructions / Restrictions: 1. Small area of ischemic colitis noted on colonoscopy. No active bleeding during colonoscopy. Okay to discharge home but avoid aspirin, nonsteroidal anti-inflammatory medications such as ibuprofen and naproxen. Discharge Orders/Prescriptions Prescriptions: Continued bimatoprost 1 DROP bottle 1 drp EACH EYE QHS Label Comments: eye drops alendronate 35 MG tablet 35 mg PO QWEEK Rx Instructions: takes once a week on friday hydroxychloroquine 200 MG tablet 200 mg PO DAILYCM mwaqccwiouji-pqlbrrfq-nfplnd Tablet 1 tab PO DAILY rosuvastatin [Crestor] 10 mg Tablet 10 mg PO QODAY rivastigmine tartrate 1.5 mg Capsule 1.5 mg PO QHS biotin 10,000 mcg Capsule 10,000 mcg PO DAILY Referrals / Follow Up: Bairon Torres MD [Primary Care Provider] - Within 2 Weeks FriendValdemar DO [Med Staff - Active Staff] - See Referral Note (As needed-office should call with results of biopsy done during colonoscopy) Disposition Disposition (needs filled in before D/C Order can be placed): Home, Self Care Charges/Coding Visit Charges Inpatient E&M: 56772 Disch Hosp 04/25/22 1323 <Electronically signed by Sameera Jones DO> Cosigner Signature (if applicable): CC: Dr. Bairon Torres MD; Dr. Sameera Jones DO~ Signed [facility] Work Phone: [phone] 617-652602-23-2023 History of Present illness Narrative* Keerthi Go MA - 04/25/2022 1:27 PM EST Scan on 04/24/2022 6:24 PM by External Provider: Consultation - Emergency Medicine Scan on 04/24/2022 6:38 PM by External Provider: Consultation - GI Scan on 04/24/2022 6:58 PM by External Provider: Consultation - Emergency Medicine PLEASE REVIEW. Keerthi Go MA [facility] Procedure [facility]02-22-2023 History and physical note Author Dr. Espinal [facility] April 24, 2022 6:53pm Note Date/Time April 24, 2022 5:04pm [facility] Medical Records Department [address] [place] [address] H&P Exam - Hospitalist 04/24/22 1657 MR#: [id number] Acct: [id number] Name: Jaye MARTINEZ Rep #:[id number] : 1935 86 From: Eduardo Jj PCP: Dr. Bairon Torres MD Status:ADM EDDIE Location: PCU [id number] HPI - General General Date of Admission: 04/24/22 Date of Service: 04/24/22 Chief Complaint: one-time bright rectal bleed today HPI Narrative Jaye MARTINEZ, is a 86 F with no prior history of GI bleed was brought to ED by her daughter for acute bright red rectal bleed. Patient was about to ready to go outside her home and she went to bathroom. In the bathroom she had flush of bright red rectal bleed strawberry color. Whole toilet bowl was filled with bright blood. She states he never had GI bleed. Denies nausea vomiting. She stated she is in her usual state of health and this happened suddenly. No abdominal pain. Denies dizziness, near- syncope or syncope. No fever. She had colonoscopy in August [address] Jesus Manuel Coronado reported hemorrhoids on perianal exam and diverticulosis in sigmoid colon and descending colon. In ED, her vitals shows BP 163/61 but no tachycardia. Repeat BP was normal range as per age. H&H on baseline. [facility] Medical History Anemia Back pain DVT (deep venous thrombosis) Easy bruising Esophageal dysphagia Family history of malignant neoplasm of colon in father Gastric reflux High cholesterol History of leukemia History of pain when walking Non-smoker Rheumatoid arthritis Syncope Wears dentures Wears glasses Home Medications bimatoprost 0.03 % drops with applicator, eyelash base 1 drp EACH EYE QHS 06/05/13 [History Last Taken Unknown] alendronate 35 mg tablet 35 mg PO CASTILLO 04/24/19 [History Last Taken Unknown] hydroxychloroquine 200 mg tablet 300 mg PO DAILYCM 04/24/19 [History Last Taken Unknown] biotin 10,000 mcg capsule 10,000 mcg PO DAILY hair growth 04/24/22 [History Last Taken Unknown] qadsbzaumxbq-mtvphqwb-mirbpw tablet 1 tab PO DAILY 04/24/22 [History Last Taken Unknown] rivastigmine tartrate 1.5 mg capsule 1.5 mg PO QHS memory 04/24/22 [History Last Taken Unknown] rosuvastatin 10 mg tablet (Crestor) 10 mg PO QODAY 04/24/22 [History Last Taken Unknown] Allergy/AdvReac Type Severity Reaction Status Date / Time aspirin Allergy Severe Hives Verified 04/24/22 13:25 ibuprofen Allergy Hives Verified 04/24/22 13:25 donepezil AdvReac Nausea Verified 04/24/22 16:23 Penicillins AdvReac I PASS Verified 04/24/22 13:25 OUT Family History no significant family his no significant family history Surgical History Hx of abdominal hysterectomy Hx of appendectomy Hx of arthroscopy of right knee Hx of arthroscopy of shoulder Hx of bilateral cataract extraction Hx of colonoscopy Hx of dilation and curettage Hx of toe surgery Hx of tonsillectomy Status post laparoscopic Warren fundoplication Social History household members: family Smoking Status: Never smoker alcohol intake: never ROS ROS Narrative Constitutional: Denies new or acute fatigue and weakness HEENT: Reports systems reviewed and no addt'l complaints, except as documented Respiratory/Chest: Denies chest pain, shortness of breath at rest or with exertion Gastrointestinal: As described in HPI Genitourinary: Denies burning urination or new urinary tract symptoms Musculoskeletal: Chronic mild arthritis joint pain of hand and knees and limitedrange of motion. History of rheumatoid arthritis. Neurologic: Denies seizure-like activity. No acute strokelike symptoms. skin: No ulcer. No rash Endocrinology: Reports systems reviewed and no addt'l complaints, except as documented Hematologic/Lymphatic: Reports systems reviewed and no addt'l complaints, exceptas documented Rest 14 ROS are negative except as mentioned in HPI Vital Signs Vital Signs Vital Signs: 04/24/22 13:26 04/24/22 13:37 04/24/22 16:02 Temperature 98.0 F 97.3 F L Temperature Source Temporal Temporal Pulse Rate 84 78 68 Respiratory Rate 18 16 18 Blood Pressure 163/67 H 145/65 H 153/58 H Blood Pressure Mean 99 91 89 Pulse Ox 99 98 99 Oxygen Delivery Method Room Air Room Air Room Air 04/24/22 16:17 Temperature 97.3 F L Temperature Source Temporal Pulse Rate 68 Respiratory Rate 18 Blood Pressure 153/58 H Blood Pressure Mean 89 Pulse Ox 99 Oxygen Delivery Method Room Air Weight Weight: 96 lb 14.4 oz Body Mass Index (BMI) 17.7 Physical Exam Narrative Physical exam General: Alert, Oriented x3, Cooperative, BMI 17.5 kg/m? HEENT: Atraumatic, PERRLA, EOMI, Normocephalic Oral: Oral mucosa moist. No Gingival or Mucosal Lesions/ Ulcerations Neck: Supple, No JVD, Negative Carotid Bruits Lungs: Air entry diminished in bilateral lung bases. No crepitation/rhonchi Cardiovascular: Regular rate, Regular Rhythm, Normal S1, Normal S2, systolic murmur over right second ICS and left second ICS Abdomen: Bowel Sounds Present, Soft, Non Tender, Non-Distended : No renal angle tenderness. No suprapubic tenderness. No dysuria. Extremities: No edema, Capillary Refill Less than 3 Seconds Skin: No rashes, No breakdown Musculoskeletal: No Tenderness to Palpation of Joints or Extremities, arthritis changes on bilateral wrist and MCP joints. Chronic knee joint arthritis. Neurological: Cranial nerves II-XII grossly intact, DTR 2+/4 and Symmetrical, Neuro grossly intact Psych/Mental Status: Normal Affect, Appropriate. Results Lab / Micro Data Result Diagrams: 04/24/22 13:45 04/24/22 13:45 Labs: Laboratory Results - last 24 hr 04/24/22 13:45: WBC 5.5, RBC 3.91 L, Hgb 12.3, Hct 38.0, MCV 97.2, MCH 31.5, MCHC 32.4, RDW Std Deviation 43.2, RDW Coeff of Katiana 12.1, Plt Count 206, MPV 11.2, Immature Gran % (Auto) 0.200, Neut % (Auto) 65.6, Lymph % (Auto) 20.2, [place] % (Auto) 8.0, Eos % (Auto) 5.1 H, Baso % (Auto) 0.9, Absolute Neuts (auto) 3.6, Absolute Lymphs (auto) 1.11, Nucleated RBC % 0 04/24/22 13:45: Sodium 143, Potassium 3.8, Chloride 108 H, Carbon Dioxide 30.0, Anion Gap 5, BUN 14, Creatinine 1.04 H, Estim Creat Clear Calc 27.94, Est GFR (MDRD) Af Amer 65, Est GFR (MDRD) Non-Af 54 L, BUN/Creatinine Ratio 13.5, Glucose 140 H, Calcium 9.5, Total Bilirubin 0.40, Direct Bilirubin 0.12, AST 24,ALT 19, Alkaline Phosphatase 61, Total Protein 6.7, Albumin 3.5, Globulin 3.2 04/24/22 14:32: PT 14.5, INR 1.2, APTT 28.7 Micro: Microbiology 04/24/22 14:50 Stool Stool Occult Blood (SKY) - Final Occult Blood Positive Assessment & Plan Assessment/Plan (1) Acute GI bleeding: PLAN: Plan 1. Acute lower GI bleed, possible differential diverticular bleed/hemorrhoidal bleed: Patient is being admitted in PCU. IV fluid Ringer lactate started. Patient had normal saline in ED. H&H 12.3/38%. Patient H&H is on baseline. Previous hemoglobin has been 12.5-13.3 in 2021. Monitor clinically for further GI bleed. It seems mainly lower GI bleed but possibility of upper GI bleed withrapid transit therefore started on Protonix 40 mg IV daily. GI consulted from ED. Monitor H&H every 6 hourly. 2. History of GERD, esophageal dysplasia: Patient on not on PPI on home medication list. IV PPI started. 3. Rheumatoid arthritis, osteoporosis: Patient on hydroxychloroquine and alendronate. She takes 35 mg alendronate on every Friday. 4. History of DVT, chronic back pain, and degenerative arthritis: Home medication reconciliation done. DVT prophylaxis: Fungal prophylaxis contraindicated. Bilateral SCDs. Living will/advanced directive/end of life care: Patient does have living will or advanced directive. Her daughter, Mrs. Phillips is power of manager publishing for health, present in ED. After discussion of benefits/risks procedures involved with full code, DNR CC arrest and DNR CC, the patient opted for full code. Patient does want artificial life support including intubation, tube feed, ventilator and/chest compression, central venous catheter, vasopressor and DC shock if needed Total time spent in zzku-da-gtns encounter in discussion of advanced directive 16 minutes. Microbiology Past 72 Hours 04/24/22 14:50 Stool Stool Occult Blood (SKY) - Final Occult Blood Positive Laboratory Results 04/24/22 13:45: WBC 5.5, RBC 3.91 L, Hgb 12.3, Hct 38.0, MCV 97.2, MCH 31.5, MCHC 32.4, RDW Std Deviation 43.2, RDW Coeff of Katiana 12.1, Plt Count 206, MPV 11.2, Immature Gran % (Auto) 0.200, Neut % (Auto) 65.6, Lymph % (Auto) 20.2, [place] % (Auto) 8.0, Eos % (Auto) 5.1 H, Baso % (Auto) 0.9, Absolute Neuts (auto) 3.6, Absolute Lymphs (auto) 1.11, Nucleated RBC % 0 04/24/22 13:45: Sodium 143, Potassium 3.8, Chloride 108 H, Carbon Dioxide 30.0, Anion Gap 5, BUN 14, Creatinine 1.04 H, Estim Creat Clear Calc 27.94, Est GFR (MDRD) Af Amer 65, Est GFR (MDRD) Non-Af 54 L, BUN/Creatinine Ratio 13.5, Glucose 140 H, Calcium 9.5, Total Bilirubin 0.40, Direct Bilirubin 0.12, AST 24,ALT 19, Alkaline Phosphatase 61, Total Protein 6.7, Albumin 3.5, Globulin 3.2 04/24/22 14:32: PT 14.5, INR 1.2, APTT 28.7 Charges/Coding Visit Charges Inpatient E&M: 77657 Init Hosp L3 Procedures Hospitalists Procedures: 75143 Advncd Care Plan 30 Min 04/24/22 1713 <Electronically signed by Eduardo Espinal MD> Cosigner Signature (if applicable): CC: Dr. Bairon Torres MD; Dr. Eduardo Espinal MD~ Signed ADDENDUM by Dr. Eduardo Espinal MD on 04/24/22 at 1853 Addendum Correction: Pharmacological prophylaxis is contraindicated because of active GI bleed. 04/24/221852<Electronically signed by Eduardo Espinal MD> Cosigner Signature (if applicable): cc: Dr. Bairon Torres MD; Dr. Eduardo Espinal MD ~* Signed [facility] Work Phone: 1(816) 709-752502-22-2023 Consult note Author Valdemar Friend [facility] April 24, 2022 6:13pm Note Date/Time April 24, 2022 6:11pm [facility] Medical Records Department [address] [place] [address] [place] [address] Consultation - GI 04/24/22 1809 MR#: [id number] Acct: [id number] Name: Jaye MARTINEZ Rep #:[id number] : 1935 86 From: Valdemar Friend DO PCP: Dr. Bairon Torres MD Status:ADM EDDIE Location: [place] [address] HPI Consult Data Date of Consult: 04/24/22 HPI Narrative Reason for Consultation: GI bleed HPI Narrative: Jaye MARTINEZ, is a 86 F who presents from home with a GI bleed. ? She states she went to the restroom and noted a lot of bright red blood in the toilet.? She tried to clean herself up but cannot tell where the blood is coming from.? She denies any pain.? She believes her last colonoscopy was nearly 2 years ago.? She does not remember any abnormalities being found at that time.? 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 She is not on any medication for this.? She is not on anticoagulants. From her colonoscopy report approximately 3 years ago and was discovered to havesignificant diverticular disease. On examination in the ED she noted hemorrhoidal disease. Her hemoglobin is 12.9 and her BUN/creatinine ratio was 14/1. [facility] Medical History Anemia Back pain DVT (deep venous thrombosis) Easy bruising Esophageal dysphagia Family history of malignant neoplasm of colon in father Gastric reflux High cholesterol History of leukemia History of pain when walking Non-smoker Rheumatoid arthritis Syncope Wears dentures Wears glasses Home Medications bimatoprost 0.03 % drops with applicator, eyelash base 1 drp EACH EYE QHS 06/05/13 [History Last Taken Unknown] alendronate 35 mg tablet 35 mg PO QWEEK 04/24/19 [History Last Taken Unknown] hydroxychloroquine 200 mg tablet 200 mg PO DAILYCM arthritis 04/24/19 [History Last Taken Unknown] biotin 10,000 mcg capsule 10,000 mcg PO DAILY hair growth 04/24/22 [History Last Taken Unknown] xvtvwislviml-sqiwaouo-emardo tablet 1 tab PO DAILY 04/24/22 [History Last Taken Unknown] rivastigmine tartrate 1.5 mg capsule 1.5 mg PO QHS memory 04/24/22 [History Last Taken Unknown] rosuvastatin 10 mg tablet (Crestor) 10 mg PO QODAY cholesterol 04/24/22 [History Last Taken Unknown] Allergy/AdvReac Type Severity Reaction Status Date / Time aspirin Allergy Severe Hives Verified 04/24/22 13:25 ibuprofen Allergy Hives Verified 04/24/22 13:25 donepezil AdvReac Nausea Verified 04/24/22 16:23 Penicillins AdvReac I PASS Verified 04/24/22 13:25 OUT Family History no significant family his Surgical History Hx of abdominal hysterectomy Hx of appendectomy Hx of arthroscopy of right knee Hx of arthroscopy of shoulder Hx of bilateral cataract extraction Hx of colonoscopy Hx of dilation and curettage Hx of toe surgery Hx of tonsillectomy Status post laparoscopic Warren fundoplication Social History household members: family Smoking Status: Never smoker alcohol intake: never ROS ROS Narrative Constitutional: Denies new or acute fatigue and weakness HEENT: Reports systems reviewed and no addt'l complaints, except as documented Respiratory/Chest: Denies chest pain, shortness of breath at rest or with exertion Gastrointestinal: As described in HPI Genitourinary: Denies burning urination or new urinary tract symptoms Musculoskeletal: Chronic mild arthritis joint pain of hand and knees and limitedrange of motion. History of rheumatoid arthritis. Neurologic: Denies seizure-like activity. No acute strokelike symptoms. skin: No ulcer. No rash Endocrinology: Reports systems reviewed and no addt'l complaints, except as documented Hematologic/Lymphatic: Reports systems reviewed and no addt'l complaints, exceptas documented Rest 14 ROS are negative except as mentioned in HPI Physical Exam Narrative Physical exam General: Alert, Oriented x3, Cooperative, BMI 17.5 kg/m? HEENT: Atraumatic, PERRLA, EOMI, Normocephalic Oral: Oral mucosa moist. No Gingival or Mucosal Lesions/ Ulcerations Neck: Supple, No JVD, Negative Carotid Bruits Lungs: Air entry diminished in bilateral lung bases. No crepitation/rhonchi Cardiovascular: Regular rate, Regular Rhythm, Normal S1, Normal S2, systolic murmur over right second ICS and left second ICS Abdomen: Bowel Sounds Present, Soft, Non Tender, Non-Distended : No renal angle tenderness. No suprapubic tenderness. No dysuria. Extremities: No edema, Capillary Refill Less than 3 Seconds Skin: No rashes, No breakdown Musculoskeletal: No Tenderness to Palpation of Joints or Extremities, arthritis changes on bilateral wrist and MCP joints. Chronic knee joint arthritis. Neurological: Cranial nerves II-XII grossly intact, DTR 2+/4 and Symmetrical, Neuro grossly intact Psych/Mental Status: Normal Affect, Appropriate. Lab / Micro Data Result Diagrams: 04/24/22 13:45 04/24/22 13:45 Labs: Laboratory Results - last 24 hr 04/24/22 13:45: WBC 5.5, RBC 3.91 L, Hgb 12.3, Hct 38.0, MCV 97.2, MCH 31.5, MCHC 32.4, RDW Std Deviation 43.2, RDW Coeff of Katiana 12.1, Plt Count 206, MPV 11.2, Immature Gran % (Auto) 0.200, Neut % (Auto) 65.6, Lymph % (Auto) 20.2, [place] % (Auto) 8.0, Eos % (Auto) 5.1 H, Baso % (Auto) 0.9, Absolute Neuts (auto) 3.6, Absolute Lymphs (auto) 1.11, Nucleated RBC % 0 04/24/22 13:45: Sodium 143, Potassium 3.8, Chloride 108 H, Carbon Dioxide 30.0, Anion Gap 5, BUN 14, Creatinine 1.04 H, Estim Creat Clear Calc 27.94, Est GFR (MDRD) Af Amer 65, Est GFR (MDRD) Non-Af 54 L, BUN/Creatinine Ratio 13.5, Glucose 140 H, Calcium 9.5, Total Bilirubin 0.40, Direct Bilirubin 0.12, AST 24,ALT 19, Alkaline Phosphatase 61, Total Protein 6.7, Albumin 3.5, Globulin 3.2 04/24/22 13:45: Magnesium 2.4 04/24/22 14:32: PT 14.5, INR 1.2, APTT 28.7 Micro: Microbiology 04/24/22 14:50 Stool Stool Occult Blood (SKY) - Final Occult Blood Positive Assessment & Plan Assessment/Plan (1) Acute GI bleeding: PLAN: The differential diagnosis for acute GI bleed would be diverticular bleed,stercoral ulcer, angiodysplasia, ischemic colitis. She should undergo colonoscopy. She was explained alternatives, risk, benefits including outstanding bleeding, infection, sepsis, perforation, need for emergent urgent . She will have an ASA of 3. Charges/Coding Visit Charges Inpatient E&M: 12028 Init Hosp L2 04/24/221812 <Electronically signed by Valdemar Friend DO> Cosigner Signature (if applicable): CC: Dr. Bairon Torres MD~ Signed [facility] Work Phone: 1(701) 596-959702-22-2023 History of Present illness Narrative* Keerthi Go MA - 04/24/2022 7:07 PM EST Scan on 04/24/2022 5:38 PM by External Provider: Consultation - Emergency Medicine Please review. Keerthi Go MA documented [facility] Powell [facility] April 24, 2022 4:04pm Note Date/Time April 24, 2022 2:02pm [facility] Medical Records Department [address] [place] [address] Emergency Department Summary 04/24/22 MR#: [id number] Acct: [id number] Name: Jaye MARTINEZ Rep #:[id number] : 1935 86 From: Katerina Powell MD PCP: Dr. Bairon Torres MD Status:REG ER Location: ED HPI History of Present Illness Chief Complaint: GI Bleed Informant: patient Onset/Context/Timing Onset: Today Narrative Narrative: Patient presents secondary to GI bleed. She states she went to the restroom andnoted a lot of bright red blood in the toilet. She tried to clean herself up but cannot tell where the blood is coming from. She denies any pain. She believes her last colonoscopy was nearly 2 years ago. She does not remember anyabnormalities being found at that time. 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 She is not on any medication for this. She is not on anticoagulants. [facility] History Anemia Back pain DVT (deep venous thrombosis) Easy bruising Esophageal dysphagia Family history of malignant neoplasm of colon in father Gastric reflux High cholesterol History of leukemia History of pain when walking Non-smoker Rheumatoid arthritis Syncope Wears dentures Wears glasses Home Medications bimatoprost 0.03 % drops with applicator, eyelash base 1 drp EACH EYE QHS 06/05/13 [History Last Taken Unknown] calcium carbonate 500 mg calcium (1,250 mg) tablet 1,000 mg PO DAILY@0800 06/05/13 [History Last Taken Unknown] multivitamin 1 tablet PO DAILY 09/30/13 [History Last Taken Unknown] alendronate 35 mg tablet 35 mg PO CASTILLO 04/24/19 [History Last Taken Unknown] cholecalciferol (vitamin D3) 25 mcg (1,000 unit) tablet 1,000 unit PO DAILY 04/24/19 [History Last Taken Unknown] hydroxychloroquine 200 mg tablet 300 mg PO DAILYCM 04/24/19 [History Last Taken Unknown] biotin 2,500 mcg capsule 2,500 mcg PO DAILY 06/26/20 [History Last Taken Unknown] Allergy/AdvReac Type Severity Reaction Status Date / Time aspirin Allergy Severe Hives Verified 04/24/22 13:25 ibuprofen Allergy Hives Verified 04/24/22 13:25 Penicillins AdvReac I PASS Verified 04/24/22 13:25 OUT Surgical History Hx of abdominal hysterectomy Hx of appendectomy Hx of arthroscopy of right knee Hx of arthroscopy of shoulder Hx of bilateral cataract extraction Hx of colonoscopy Hx of dilation and curettage Hx of toe surgery Hx of tonsillectomy Status post laparoscopic Warren fundoplication Social History household members: family Smoking Status: Never smoker alcohol intake: never ROS ROS ED Constitutional Constitutional ED: Denies chills or fever(s) Eyes Eyes: Denies change in vision or discharge from eye(s) ENT ENT ED: Denies discharge from eye(s), rhinorrhea or sore throat Cardiovascular Cardiovascular: Denies chest pain or palpitations Respiratory/Chest Respiratory/Chest: Denies cough or dyspnea Gastrointestinal Gastrointestinal: Denies abdominal pain, diarrhea, nausea or vomiting Genitourinary Genitourinary ED: Denies dysuria Musculoskeletal Musculoskeletal: Denies back pain or extremity pain Integumentary Denies Abrasions or rash Neurologic Neurologic: Denies headache(s) or weakness Allergic/Immunologic Allergic/Immunologic ED: Denies lip swelling or urticaria EXAM Physical Exam Const Vital Signs: 04/24/22 13:26 04/24/22 13:37 Temperature 98.0 F Temperature Source Temporal Pulse Rate 84 78 Respiratory Rate 18 16 Blood Pressure 163/67 H 145/65 H Blood Pressure Mean 99 91 Pulse Ox 99 98 Oxygen Delivery Method Room Air Room Air Positive well nourished and well developed General Appearance ED: well developed HEENT Reports normocephalic and head/scalp atraumatic Eyes PERRL and EOMs intact bilaterally Neck supple Chest Wall inspection of chest normal and palpation of chest normal Resp normal respiratory effort and clear to auscultation bilaterally Cardio regular rate and regular rhythm GI normal to inspection, nondistended, normoactive bowel sounds Palpation: soft Back/Spine no CVA tenderness Extremity normal to inspection Neuro oriented x3 and no sensory deficits noted Sensorium / Orientation: alert Motor Exam: strength 5/5 throughout Psych mental status grossly normal Skin no rashes or lesions noted MDM MDM MDM Narrative Medical decision making narrative: Lab work obtained to evaluate for leukocytosis, anemia, electrolyte derangement. Rectal examination performed which reveals bright red blood from the rectum. Richard not appreciate any internal or external hemorrhoids on exam. Lab Data Attestation: I reviewed the patient's lab results. Labs: Laboratory Results - last 24 hr 04/24/22 04/24/22 04/24/22 13:45 13:45 14:32 WBC 5.5 RBC 3.91 L Hgb 12.3 Hct 38.0 MCV 97.2 MCH 31.5 MCHC 32.4 RDW Std Deviation 43.2 RDW Coeff of Katiana 12.1 Plt Count 206 MPV 11.2 Immature Gran % (Auto) 0.200 Neut % (Auto) 65.6 Lymph % (Auto) 20.2 [place] % (Auto) 8.0 Eos % (Auto) 5.1 H Baso % (Auto) 0.9 Absolute Neuts (auto) 3.6 Absolute Lymphs (auto) 1.11 Nucleated RBC % 0 PT 14.5 INR 1.2 APTT 28.7 Sodium 143 Potassium 3.8 Chloride 108 H Carbon Dioxide 30.0 Anion Gap 5 BUN 14 Creatinine 1.04 H Estim Creat Clear Calc 27.94 Est GFR (MDRD) Af Amer 65 Est GFR (MDRD) Non-Af 54 L BUN/Creatinine Ratio 13.5 Glucose 140 H Calcium 9.5 Total Bilirubin 0.40 Direct Bilirubin 0.12 AST 24 ALT 19 Alkaline Phosphatase 61 Total Protein 6.7 Albumin 3.5 Globulin 3.2 Treatment and Re-Evaluation Narrative: CBC reveals normal white count. Hemoglobin is currently 12.3. Chemistry studies unremarkable. LFTs unremarkable. Coags are normal. Patient still guaiac is positive. Given the patient does not have an obvious source of bleeding I am concerned about possible diverticular bleed. I recommended observation overnight for monitoring of her bleeding and hemoglobin levels. I did discuss the case with . Friend will be available as needed. I will speak with the hospitalist. Discharge Plan Triage Chief Complaint: GI Bleed ED Provider: Katerina Powell Dx/Rx/DC Orders Clinical Impression: Acute GI bleeding Prescriptions: No Action biotin 2,500 mcg capsule 2,500 mcg PO DAILY calcium carbonate 500 MG tablet 1,000 mg PO DAILY@0800 Label Comments: supplements bimatoprost 1 DROP bottle 1 drp EACH EYE QHS Label Comments: eye drops multivitamin 1 TABLET tablet 1 tablet PO DAILY Label Comments: vitamins alendronate 35 MG tablet 35 mg PO CASTILLO hydroxychloroquine 200 MG tablet 300 mg PO DAILYCM cholecalciferol (vitamin D3) 1,000 UNIT tablet 1,000 unit PO DAILY Primary Care Provider: Bairon Torres Referrals: Bairon Torres MD [Primary Care Provider] - Disposition Disposition: Acute Care Hospital [facility] What to do if you have Problems For any increased pain, shortness of breath, bleeding, nausea or vomiting, chestpain, or any unexpected problems, contact your Primary Care Provider. Call [facility] ([phone]) or report to the closest Emergency Room. Call 911 if necessary. 04/24/22 1608 <Electronically signed by Katerina Powell MD> Cosigner Signature (if applicable): CC: Dr. Bairon Torres MD ~ Signed [facility] Work Phone: 1(676) 379-840502-13-2023 Miscellaneous Notes* Telephone Encounter - Keerthi Go MA - 04/15/2022 9:07 AM EST Daughter notified and voiced understanding. Keerthi Go MA * Telephone Encounter - Bairon Torres MD - 04/12/2022 6:25 PM EST Let Marimar, patient's daughter know thew repeat urine did not show any blood. She does show signs of a possible UTI. If any burning, frequency, urgency, increase incontinence lower abdominal pain we should treat. If no symptoms no Tx needed. documented in this encounterH[facility]02-[facility]23 Miscellaneous Notes* Telephone Encounter - Bairon Torres MD - 04/08/2022 12:31 PM EST The following approved medication requests have been transmitted electronically. Requested Prescriptions Signed Prescriptions Disp Refills rivastigmine tartrate (EXELON) 1.5 mg capsule 30 capsule 1 Sig: Take 1 capsule by mouth once daily. Authorizing Provider: BAIRON TRORES MD * Telephone Encounter - Keerthi Go MA - 04/08/2022 10:11 AM EST Patient has been identified by name and date of : Yes Requested Prescriptions Pending Prescriptions Disp Refills rivastigmine tartrate (EXELON) 1.5 mg capsule 5 capsule 0 Sig: Take 1 capsule by mouth once daily. RX INSTRUCTIONS: Patient aware RX will be sent to pharmacy. No need to notify patient. Keerthi Go MA Rosemarie: 03/2022 Nov: 05/2022 Last refill; 03/28/2022 5 capsules documented in this encounterH[facility]01-30-[facility]23 History of Present illness Narrative* Destini Agarwal RT(R) - 04/01/2022 3:00 PM EST Radiology Service Progress Note PATIENT NAME: Guicho Martinez DATE OF SERVICE: April 01, 2022 TIME: 3:03 PM PATIENT IDENTITY VERIFICATION COMPLETED USING TWO (2) IDENTIFIERS: Name and Date of confirmedby patient verbally. FALL SCREENING: Has the patient had 2 falls in the last year or 1 fall with injury or currently using an Ambulatory Assistive Device (Walker, Cane, Wheelchair, Crutches, etc.)? No PATIENT GENDER DATA: Female. status: : No status: NO. PATIENT RELEVANT IMPLANT DATA REVIEWED: Yes RADIOLOGY DEPARTMENT: MR; Exam(s) Completed: Head: Routine Brain PERIPHERAL IV DATA: Not applicable SIGNED BY: RT Luann(R) April 01, 2022 3:03 PM documented in this encounterH[facility]01-26-2023 Miscellaneous Notes* Telephone Encounter - Bairon Torres MD - 03/28/2022 4:44 PM EST Noted. * Telephone Encounter - Keerthi Go MA - 03/28/2022 4:18 PM EST Spoke with daughter Nellie and gave PCP instructions. She voiced understanding. She indicated that they were going to wait and pick it up on a Friday so that either her or her sister can stay with herover the weekend to make sure she doesn't have a reaction. Keerthi Go MA * Telephone Encounter - Bairon Torres MD - 03/28/2022 4:09 PM EST Let Marimar know I sent in the script for 5 days. If she does ok I would keep her at this dose for amonth and slowly taper her up month by month. The following approved medication requests have been transmitted electronically. Requested Prescriptions Signed Prescriptions Disp Refills rivastigmine tartrate (EXELON) 1.5 mg capsule 5 capsule 0 Sig: Take 1 capsule by mouth once daily. Authorizing Provider: BAIRON TORRES MD * Telephone Encounter - Jodie Khan RN - 03/28/2022 3:52 PM EST Patient's daughter, Marimar calling to let PCP know that family would like to try Exelon for patientper note 03/11/22. She is requesting only 5 capsules of 1.5 mg as initial script. Advised message recommended 1.5 mg daily for one week but she declined 7 capsules. Pended as requested. documented in this encounterH[facility]01-04-2023 Instructions* Patient Instructions* Bairon Torres MD - 03/06/2022 6:59 PM EST Stop the Vit D supplement Consider getting the shingrix vaccine for the prevention of shingles from a local pharmacy if she did not get the second one. Get repeat urinalysis on or after 04/05/2022 Please get labs and urine test done on or after 08/23/2022 prior to your next visit. documented in this encounterH[facility]01-04-2023 History of Present illness Narrative* Bairon Torres MD - 03/06/2022 6:00 PM EST Chief Complaint Patient presents with: Establish Care HPI Guicho Martinez is a 86 year old female who presents here today for establish care/routine exam. Patient with Hx of hyperlipidemia, Carotid artery stenosis, elevated TSH, elevated blood sugar, CKD, lactose intolerance, rosacea, osteoporosis as well as those reviewed and addressed below and in ROS. Patient never started the Crestor. Family has been noticing some short term memory issues. Past medical history, appointments, medications, allergies reviewed. 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/08/2012 Internal hemorrhoids without mention of complication ITP (idiopathic thrombocytopenic purpura) History of episode in 1999 Lactose intolerance 02/23/2016 Mixed hyperlipidemia Osteoporosis 12/02/2018 Rosacea 09/14/2009 Stage 3a chronic kidney disease (HCC) 07/18/2020 Unspecified glaucoma(365.9) Previous Surgical History PAST SURGICAL HISTORY Procedure Laterality Date COLONOSCOPY FLX DX W/COLLJ SPEC WHEN PFRMD 03/20/05 Colonoscopy COLONOSCOPY FLX DX W/COLLJ SPEC WHEN PFRMD 08/29/10 COLONOSCOPY W/BIOPSY SINGLE/MULTIPLE 09-30-13 EGD TRANSORAL BIOPSY SINGLE/MULTIPLE 09-30-13 GASTROESOPHAG REFLX TEST W/TELEMTRY PH ELTRD 09-30-13 PH PROBE LAPS RPR PARAESPHGL HRNA INCL FUNDPLSTY W/O MESH 12-09-13 PAST SURGICAL HISTORY OF 1957 growth of ovary/growth off bowell/appendectomy PAST SURGICAL HISTORY OF 1967 tumor removed behind naval PAST SURGICAL HISTORY OF 05/2007 knee surgery PAST SURGICAL HISTORY OF 2011 bilateral cataract PAST SURGICAL HISTORY OF bilat great toe repair PAST SURGICAL HISTORY OF left shoulder repair, arthoscopy TONSILLECTOMY PRIMARY/SECONDARY <AGE 14 Tonsillectomy TOTAL ABDOMINAL HYSTERECT W/WO RMVL TUBE OVARY 1985 Hysterectomy, MOOSE Family History FAMILY HISTORY Problem Relation Age of Onset Diabetes Mother feeding tube Stroke Father colon cancer Heart Brother aneurysm behind heart Aneurysm Brother stomach Patient Allergies ALLERGIES Allergen Reactions Asa [Salicylates] Other: See Comments Hx of low plateletes Ibuprofen Hives Penicillins passed out Current Medications Current Outpatient Medications on File Prior to Visit Medication Sig alendronate (FOSAMAX) 35 mg tablet Take on empty stomach in the morning with 8 oz of water. After taking do not have food, drink, medications, or supplements for at least one half-hour. Take 1 tabletPO once each week. rosuvastatin (CRESTOR) 10 mg tablet Take 1 tablet by mouth daily at bedtime. cholecalciferol, vitamin D3, (VITAMIN D3 ORAL) Take 1,000 Units by mouth once daily. BIOTIN ORAL Take 10,000 mcg by mouth once daily. calcium carbonate/vitamin D3 (CALCIUM 600 + D ORAL) Take 1 tablet by mouth twice daily. hydroxychloroquine (PLAQUENIL) 200 mg tablet Take 1.5 tablets by mouth once daily. Per rheumatology calcium carbonate-vitamin D (OS-DEBBI 250 W/D) 250 (625)-125 mg-unit tab Take 1 tablet by mouth once daily. LUMIGAN 0.03 % EYE DROPS one drop each eye nightly THERAPEUTIC MULTIVITAMIN TAB Take one(1) tablet daily. No current facility-administered medications on file prior to visit. Social History Social History Tobacco Use Smoking status: Never Smokeless tobacco: Never Substance Use Topics Alcohol use: No Review of Symptoms REVIEW OF SYSTEMS GENERAL: slight loss, malaise or fevers NECK: Negative for lumps, goiter, pain and significant neck swelling RESPIRATORY: Negative for cough, hemoptysis, wheezing, COPD, dyspnea or shortness of breath CARDIOVASCULAR: Negative for chest pain, leg swelling, hypertension, CHF or palpitations. : No history of dysuria, blood ENDOCRINE: Negative for cold or heat intolerance, polyuria, polydipsia and goiter NEURO: No history of headaches, syncope, paralysis, seizures or tremors, see HPI EXAM: BP 140/78 (BP Site: Right Arm, BP Position: Sitting, BP Cuff Size: Regular Adult) Pulse 84 Resp16 Ht 159.4 cm (5' 2.75) Wt 44.9 kg (99 lb) BMI 17.68 kg/m Last 6 Encounter Wt Readings: Date: Wt: 03/06/2022 44.9 kg (99 lb) 07/23/2021 47.6 kg (105 lb) 05/21/2021 48.9 kg (107 lb 12.8 oz) 03/05/2021 47.4 kg (104 lb 6.4 oz) 01/22/2021 47.6 kg (105 lb) 09/20/2020 47.2 kg (104 lb) General Appearance: Well appearing, alert, in no acute distress, well-hydrated, well nourished.. Neck: Supple, no adenopathy; thyroid symmetric, normal size, no bruits. Lungs: Lungs clear to auscultation. No wheezing, rhonchi, rales.. Heart: RRR without murmur, gallop, or rubs. No ectopy. Abdomen: Normal abdominal exam, Abdomen soft, non-tender. Bowel sounds normal. No masses, organomegaly. Extremities: No deformities, edema, skin discoloration, Good capillary refill. . Peripheral Pulses: Normal. Neurologic: Gait normal. Reflexes normal and symmetric. Sensation to light touch and crainal nerves2-12 intact.. Musc: strength normal. Health Maintenance List SHINGRIX VACCINE(2 of 2) due on 06/09/2019 ADVANCE DIRECTIVE DISCUSSION Never done DEPRESSION ASSESSMENT Never done INFLUENZA(1) due on 11/01/2021 DTAP,TDAP,TD(3 - Tdap) due on 01/26/2022 DIABETES SCREEN due on 02/14/2025 BONE DENSITY Completed COVID-19 VACCINE Completed PNEUMOCOCCAL: 65+ Completed Data reviewed MINI-MENTAL STATE EXAMINATION (MMSE) Make the patient comfortable and establish rapport. Ask questions in the order listed. Total possible score is 30. ORIENTATION 1. What is the (year) (season) (date) (day) (month)? Max score=5 Patient's score=5 2. Where are we? (state) (county) (town or city) (hospital) (floor)? Max score=5 Patient's score=5 REGISTRATION Ask the patient if you may test his/her memory. Then say the names of 3 unrelated objects, clearly and slowly, about one second for each (eg, apple, table, radha). After you have said all 3, ask him/her to repeat them. This first repetition determines the score(0-3), but keep saying them until he/she can repeat all 3, up to 6 trials. Max score=3 Patient's score=3 ATTENTION AND CALCULATION Ask the patient to begin with 100 and count backwards by 7. Stop after 5 subtractions (93, 86, 79, 72, 65). Score the total number of correct answers. If the patient cannot or will not perform the serial 7s task, ask him/her to spell the word WORLD backwards. The score is the number of letters in the correct order (eg, DLROW=5; DLRW=4; DLORW, DLW=3; OW=2; DRLWO=1). Max score=5 Patient's score=3 RECALL Ask the patient to recall the 3 items repeated above (eg, apple, table, radha). Max score=3 Patient's score=0 LANGUAGE Naming: Show the patient a wristwatch and ask him/her what it is. Repeat for pencil. Max score=2 Patient's score=2 Repetition: Ask the patient to repeat the phrase No ifs, ands, or buts: after you. Max score=1 Patient's score=0 3-Stage Command: Give the patient a piece of blank paper and ask him/her to take a piece of paper in your right hand, fold it in half, put it on the floor. Score 1 point for each part correctly executed. Max score=3 Patient's score=3 Reading: On a blank piece of paper, print the sentence CLOSE YOUR EYES in letters large enough for the patient to see clearly. Ask him/her to read it and do what it says. Score 1 point only if he/sheactually closes his/her eyes. Max score=1 Patient's score=1 Writing: Give the patient a blank piece of paper and ask him/her to write a sentence. Do not dictate a sentence; it is to be written spontaneously. It must contain a subject and verb and be sensible.Correct grammar and punctuation are not necessary. Max score=1 Patient's score=1 Copying: Ask the patient to copy the figure of intersecting pentagons exactly as it is. All 10 angles must be present and 2 must intersect to form a 4-sided figure to score 1 point. Tremor and rotation are ignored. Max score=1 Patient's score=0 MAXIMUM TOTAL SCORE = 30 TOTAL SCORE = 23/30 Suggested guideline for determining the severity of cognitive impairment: Mild: MMSE>21 Moderate: MMSE 10-20 Severe: MMSE<9 Expected decline in MMSE scores in untreated mild to moderate Alzheimer's patient is 2 to 4 points per year. *Adapted from Folstein et al.1 and Yanci and Folstein2. (c) 1974, 1997 [employer] Used withpermission. References: 1. Folstein MF, Folstein SE, [place]. Mini-Mental State: a practical method for grading the cognitive state of patients for the clinician. J Psychiatr Res. 1975; 12:189-198. 2. JR Yanci, Marion MF, Mini-Mental State Examination (MMSE). Psychopharm Bull. 1988;24:689-692. 3. Kevin JT, Garrick FJ, Eliezer RD, Craig A, Jaswinder F. Neuropsychological function in Alzheimer's disease: pattern of impairment and rates of progression. Arch Neurol. 1988;45:263-268. 4. Jose JA, Kavon B,Luis S-P, Santiago FRANCO. Predictors of cognitive and functional progression in patients with probable Alzheimer's disease. Neurology. 1992;42:0492-0355. Component Latest Ref Rng & Units 07/23/2021 02/14/2022 WBC 3.70 - 11.00 k/uL 6.34 5.83 RBC 3.90 - 5.20 m/uL 4.12 4.24 Hemoglobin 11.5 - 15.5 g/dL 13.2 13.4 Hematocrit 36.0 - 46.0 % 40.6 41.3 MCV 80.0 - 100.0 fL 98.5 97.4 MCH 26.0 - 34.0 pg 32.0 31.6 MCHC 30.5 - 36.0 g/dL 32.5 32.4 RDW-CV 11.5 - 15.0 % 11.9 12.0 Platelet Count 150 - 400 k/uL 218 251 MPV 9.0 - 12.7 fL 10.3 10.2 Neut% % 65.7 Abs Neut (ANC) 1.45 - 7.50 k/uL 3.83 Lymph% % 20.9 Abs Lymph 1.00 - 4.00 k/uL 1.22 [place]% % 10.6 Abs [place] <0.87 k/uL 0.62 Eosin% % 2.1 Abs Eosin <0.46 k/uL 0.12 Baso% % 0.5 Abs Baso <0.11 k/uL 0.03 Immature Gran % % 0.2 IMMATURE GRANS (ABS) <0.10 k/uL <0.03 NRBC /100 WBC 0.0 Absolute nRBC <0.01 k/uL <0.01 <0.01 DTYPE Auto Protein, Total 6.3 - 8.0 g/dL 6.2 (L) 7.1 Albumin 3.9 - 4.9 g/dL 4.4 4.4 Calcium 8.5 - 10.2 mg/dL 10.0 9.7 Bilirubin, Total 0.2 - 1.3 mg/dL 0.5 0.6 Alkaline Phosphatase 34 - 123 U/L 71 74 AST 13 - 35 U/L 22 24 ALT 7 - 38 U/L 15 15 Glucose 74 - 99 mg/dL 105 (H) 72 (L) BUN 7 - 21 mg/dL 11 13 Creatinine 0.58 - 0.96 mg/dL 1.08 (H) 1.01 (H) Sodium 136 - 144 mmol/L 142 136 Potassium 3.7 - 5.1 mmol/L 4.3 4.0 Chloride 97 - 105 mmol/L 102 99 CO2 22 - 30 mmol/L 32 (H) 25 Anion Gap 9 - 18 mmol/L 8 (L) 12 eGFR >=60 mL/min/1.73m 51 (L) 55 (L) Color Yellow Light Yellow Clarity Clear Clear Glucose, Urine Trace, Negative Negative Bilirubin, Urine Negative Negative Ketones, Urine Trace, Negative Negative Specific [place], Ur 1.005 - 1.030 1.012 Hemoglobin/Blood,Ur Negative, Trace Negative pH, Urine 5.0 - 8.0 6.5 Protein, Urine Trace, Negative Negative Urobilinogen Negative Negative Nitrites Negative Negative Leukest Negative, 25 Kilo/mL Negative WBC, Urine 0-5 /HPF 0-5 /HPF RBC, Urine 0-3 /HPF 3-5 /HPF (A) Epithelial Cells /HPF Few Total Cholesterol, Nonfasting <200 mg/dL 177 195 Triglycerides, Nonfasting <150 mg/dL 125 87 HDL Cholesterol, Nonfasting >39 mg/dL 51 63 LDL Cholesterol, Nonfasting <100 mg/dL 101 (H) 115 (H) Non HDL Cholesterol, Nonfasting <130 mg/dL 126 132 (H) VLDL Cholesterol, Nonfasting <30 mg/dL 25 17 Total Chol/HDL Ratio, Nonfasting <5.10 mg/dL 3.47 3.10 LDL/HDL Ratio, Nonfasting <2.54 mg/dL 1.98 1.83 Hemoglobin A1C 4.3 - 5.6 % 5.3 5.1 Estimated Average Glucose mg/dL 105 100 Vitamin D 25 Hydroxy 31.0 - 80.0 ng/mL 77.8 90.0 (H) Vitamin B12 232-1,245 pg/mL 1,534 (H) TSH 0.270 - 4.200 mIU/L 2.880 3.480 A/P ASSESSMENT/PLAN: 1. Mixed hyperlipidemia - ICD9: 272.2, ICD10: E78.2 (primary diagnosis) - suboptimal control - Begin treatment with rosuvastatin (Crestor) 10 mg every other day. - Encouraged following a low fat, low cholesterol diet. - Discussed the benefits of regular aerobic exercise and weight loss. - Encouraged following a low carbohydrate, healthy oil intake diet. 2. Elevated TSH - ICD9: 794.5, ICD10: R79.89 - recent lab was good. 3. Elevated blood sugar - ICD9: 790.29, ICD10: R73.9 - good A1c. 4. Stage 3a chronic kidney disease (HCC) - ICD9: 585.3, ICD10: N18.31 - cont increased fluids. - patient does not use NSAID's 5. Bilateral carotid artery stenosis - ICD9: 433.10, 433.30, ICD10: I65.23 - will get on statin to help get LDL down around 70. 6. Memory deficit - ICD9: 780.93, ICD10: R41.3 Check - VITAMIN B12 BLOOD - SYPHILIS TOTAL W/REFLEX - FOLATE SERUM - MRI BRAIN WO IVCON Discussed starting Aricept and patient along with daughter in agreement. 7. Osteoporosis, unspecified osteoporosis type, unspecified pathological fracture presence - ICD9: 733.00, ICD10: M81.0 - Reviewed the need for Calcium and weight bearing exercise as tolerated - ALENDRONATE 35 MG TABLET Patient's Vit D at 90 and will stop her daily Vit D 1000 international unit(s) 's. 8. Advance directive discussed with patient - ICD9: V65.49, ICD10: Z71.89 - up to date. 9. Microscopic hematuria - ICD9: 599.72, ICD10: R31.29 In a months recheck - URINALYSIS, WITH MICROSCOPIC F/u in 2 months memory. F/u 6 months WAE check CMP, lipid, UA, A1c, TSH, CBC Vit D prior I spent a total of 50 minutes on the date of the service which included preparing to see the patient, [id number] patient care, completing clinical documentation, performing a medically appropriate examination, counseling and educating the patient/family/caregiver and ordering medications, tests, or procedures. Bairon Torres MD documented in this encounterH[facility]10[facility]22 Miscellaneous Notes* Telephone Encounter - Heather Smith - 12/24/2021 10:53 AM EDT Patient has been identified by name and date of : Yes Last office visit in this department: 07/23/2021 RX INSTRUCTIONS: Patient aware RX will be sent to pharmacy. No need to notify patient. Patient phones requesting refills as follows: Requested Prescriptions Pending Prescriptions Disp Refills alendronate (FOSAMAX) 35 mg tablet 12 tablet 0 Sig: Take on empty stomach in the morning with 8 oz of water. After taking do not have food, drink,medications, or supplements for at least one half-hour. Take 1 tablet PO once each week. Please review and advise. Heather Smith documented in this encounterH[facility]05-26-2022 Miscellaneous Notes* Telephone Encounter - Katherine Ruff Ma - 07/26/2021 9:29 AM EDT Spoke to patient who is aware of results and please send to Mandie. Katherine Ruff Ma * Telephone Encounter - Louis Isaacs DO - 07/25/2021 9:13 PM EDT Please inform patient that her carotid artery US shows show internal carotid artery stenosis/plaquebilaterally between 40-59%. We will need her to consider starting a low dose cholesterol medicationto help with this management of plaque and help prevent progression such as Crestor 10 mg a day . Also recommend rechecking carotid US in 1 year Louis L Isaacs, DO documented in this encounterH[facility]05-23-2022 History of Present illness Narrative* Louis Isaacs DO - 07/23/2021 8:55 AM EDT CC: Guicho Martinez is a 86 year old female who presents to the office for follow up HPI: Osteoporosis, taking fosamax, no recent spinal pain or falls or injuries. CKD stage 3, avoiding all NSAIDs, trying to eat a balanced diet. Drinking at least 80-100 oz of water a day, not drinking any caffeinated beverages. Hx of ITP. Last labs in July were stable HPL, diet controlled Willing to have fasting labs today PAST MEDICAL HISTORY Diagnosis Date Benign neoplasm of colon Diverticulosis of colon (without mention of hemorrhage) Internal hemorrhoids without mention of complication ITP (idiopathic thrombocytopenic purpura) History of episode in 1999 Other and unspecified hyperlipidemia Unspecified glaucoma(365.9) PAST SURGICAL HISTORY Procedure Laterality Date COLONOSCOPY FLX DX W/COLLJ SPEC WHEN PFRMD 03/20/05 Colonoscopy COLONOSCOPY FLX DX W/COLLJ SPEC WHEN PFRMD 08/29/10 COLONOSCOPY W/BIOPSY SINGLE/MULTIPLE 09-30-13 EGD TRANSORAL BIOPSY SINGLE/MULTIPLE 09-30-13 GASTROESOPHAG REFLX TEST W/TELEMTRY PH ELTRD 09-30-13 PH PROBE LAPS RPR PARAESPHGL HRNA INCL FUNDPLSTY W/O MESH 12-09-13 PAST SURGICAL HISTORY OF 1957 growth of ovary/growth off bowell/appendectomy PAST SURGICAL HISTORY OF 1967 tumor removed behind naval PAST SURGICAL HISTORY OF 05/2007 knee surgery PAST SURGICAL HISTORY OF 2011 bilateral cataract PAST SURGICAL HISTORY OF bilat great toe repair PAST SURGICAL HISTORY OF left shoulder repair, arthoscopy TONSILLECTOMY PRIMARY/SECONDARY <AGE 14 Tonsillectomy TOTAL ABDOMINAL HYSTERECT W/WO RMVL TUBE OVARY 1985 Hysterectomy, MOOSE Social History: Social History Tobacco Use Smoking status: Never Smoker Smokeless tobacco: Never Used Substance Use Topics Alcohol use: No Drug use: Not on file FAMILY HISTORY Problem Relation Age of Onset Diabetes Mother feeding tube Stroke Father colon cancer Heart Brother aneurysm behind heart Aneurysm Brother stomach Current Outpatient prescriptions: alendronate (FOSAMAX) 35 mg tablet Take on empty stomach in the morning with 8 oz of water. After taking do not have food, drink, medications, or supplements for at least one half-hour. Take 1 tabletPO once each week. cholecalciferol, vitamin D3, (VITAMIN D3 ORAL) Take 1,000 Units by mouth once daily. BIOTIN ORAL Take 10,000 mcg by mouth once daily. calcium carbonate/vitamin D3 (CALCIUM 600 + D ORAL) Take 1 tablet by mouth twice daily. hydroxychloroquine (PLAQUENIL) 200 mg tablet Take 1.5 tablets by mouth once daily. Per rheumatology calcium carbonate-vitamin D (OS-DEBBI 250 W/D) 250 (625)-125 mg-unit tab Take 1 tablet by mouth once daily. LUMIGAN 0.03 % EYE DROPS one drop each eye nightly THERAPEUTIC MULTIVITAMIN TAB Take one(1) tablet daily. Allergies: ALLERGIES Allergen Reactions Asa [Salicylates] Other: See Comments Hx of low plateletes Ibuprofen Hives Penicillins passed out ROS: See HPI PE: 07/23/21 0847 BP: 120/60 Pulse: 68 Resp: 16 Temp: 36.1 C (97 F) TempSrc: Left Tympanic Weight: 47.6 kg (105 lb) Gen: A&O, NAD, non-toxic appearing, Pleasant, cooperative HEENT: NT/AC, PERRLA, EOMs intact b/l, nares clear and patent b/l, pharynx without erythema, exudate or lesions. Uvula midline.MMM, EACs without erythema or debris. TMs pearly michael with intact landmarks b/l. Neck: supple, No cervical LAD, no thyromegaly, + mild right carotid bruits CV: RRR, normal S1 and S2, no murmurs, no gallops, no rubs, Pulses 2+ and symmetric in UE and LE b/l Lungs: normal respiratory effort, CTA b/l, no wheezing or rhonchi or rales Abd: soft, NT, ND, +BS, no hepatosplenomegaly MS: FROM all 4 extremities, normal gait No edema Neuro: CN II-XII intact b/l, strength 5/5 b/l UE and LE, DTRs 2/4 UE and LE, sensation intact. Skin: warm, dry, intact, No rashes or lesions on exposed skin. ASSESSMENT/PLAN: 1. Osteoporosis, unspecified osteoporosis type, unspecified pathological fracture presence - ICD9: 733.00, ICD10: M81.0 (primary diagnosis) - Reviewed the need for Calcium and Vitamin D supplements and weight bearing exercise as tolerated - COMP METABOLIC PANEL - CBC - VITAMIN D 25 HYDROXY 2. Hyperlipidemia, unspecified hyperlipidemia type - ICD9: 272.4, ICD10: E78.5 - to be determined upon return of lab results - Encouraged following a low fat, low cholesterol diet. - Discussed the benefits of regular aerobic exercise and weight loss. - LIPID PANEL, NONFASTING 3. Chronic ITP (idiopathic thrombocytopenia) (HCC) - ICD9: 287.31, ICD10: D69.3 - recheck CBC 4. Stage 3a chronic kidney disease (HCC) - ICD9: 585.3, ICD10: N18.31 - recheck labs, asymptomatic - COMP METABOLIC PANEL - CBC 5. Elevated TSH - ICD9: 794.5, ICD10: R79.89 - recheck labs - T4 FREE/FREE THYROX - T3 FREE BLD 6. Hyperglycemia - ICD9: 790.29, ICD10: R73.9 - recheck labs. - HGB A1C 7. Fatigue, unspecified type - ICD9: 780.79, ICD10: R53.83 - COMP METABOLIC PANEL - CBC - VITAMIN D 25 HYDROXY - VITAMIN B12 BLOOD - TSH BLD 8. Right carotid bruit - ICD9: 785.9, ICD10: R09.89 - need for US carotids - US CAROTID ARTERIES [facility] Louis Isaacs DO To ER if develops chest pain, shortness of breath, or severe worsening of symptoms. Discussed risks, benefits, alternatives, and potential side effects of medications. Patient expressed understanding and agreed with the plan. Louis Isaacs DO [address] [place] [address] documented in this encounterH[facility]04-20-2022 Miscellaneous Notes* Telephone Encounter - Teresa Burleson Pss - 06/20/2021 1:25 PM EDT Patient has been identified by name and date of : Yes Pending Prescriptions Disp Refills ALENDRONATE 35 MG TABLET 12 tablet 0 Sig: Take on empty stomach in the morning with 8 oz of water. After taking do not have food, drink,medications, or supplements for at least one half-hour. Take 1 tablet PO once each week. EDEN: No ROSEMARIE-01/22/21 Labs-01/22/21 NOV-07/23/21 med filled- 03/26/21 RX INSTRUCTIONS: Patient aware RX will be sent to pharmacy. No need to notify patient. Teresa Burleson Pss documented in this encounterH[facility]03-21-2022 Instructions* Patient Instructions* Jon Wilhelm - 05/21/2021 2:51 PM EDT Ear wax buildup and blockage (cerumen impaction) What is ear wax? Ear wax, also called cerumen, is made by the body to protect the ears. The ear wax has both lubricating and antibacterial properties. Most of the time, the old ear wax is moved through the ear canal by motions from chewing and other jaw movements and as the skin of the ear canal grows from the inside out. At that time, it reaches the outside of the ear and flakes off. Ear wax is produced in the outer part of the ear canal, not deep inside the ear. What does it mean when ear wax becomes impacted? We say that ear wax is impacted when it has built up in the ear canal to such a point that there may be signs that something is not quite right. It is important to note that, for most people, ears might never need cleaning they are designed to clean themselves. Ear wax buildup and blockage often happens when people use items like cotton swabs or sonali pins to try to clean their ears. This only pus hes the ear wax farther into the ears and can also cause injury to the ear. What are the symptoms of ear wax impaction? A feeling of fullness in the ear Pain in the ear Difficulty hearing, which may continue to worsen Ringing in the ear (tinnitus) A feeling of itchiness in the ear Discharge from the ear Odor coming from the ear Dizziness Who experiences ear wax buildup? Ear wax buildup can happen to anyone. However, it is more likely to occur in: People who use hearing aids or ear plugs People who put cotton swabs or other items into their ears Older people People with developmental disabilities People with ear canals shaped in such a way as to interfere with natural wax removal How is ear wax impaction diagnosed? Your health care provider can look into your ears with a special instrument, called an otoscope, tosee if ear wax buildup is present. How is ear wax impaction treated? Ear wax can be removed in several ways; some of these methods can be done at home. Cleaning the outside of the ear by wiping with a cloth. Putting cerumenolytic solutions (solutions to dissolve wax) into the ear canal these solutions include mineral oil, baby oil, glycerin, peroxide-based ear drops (such as Debrox ), hydrogen peroxide, and saline solution. Irrigating or syringing the ear this involves using a syringe to rinse out the ear canal with wateror saline, generally after the wax has been softened or dissolved by a cerumenolytic. Removing the wax manually using special instruments this should be done only by a health care provider who might use a cerumen spoon, forceps, or suction device. Note: Irrigation should not be done by or to any persons who have, or suspect they have, a perforation (hole) in their eardrum or tubes in the affected ear(s). Commercially available suction devices for home use (such as Wax-Vac) are not effective for most people and are therefore not recommended. Ear candles, which are advertised as a natural method to remove ear wax, are not only ineffective but can cause injury to the ear. Injuries include leija to theexternal ear and ear canal and perforation of the eardrum. What are possible complications of ear wax impaction? If left untreated, excessive ear wax may cause symptoms of ear wax impaction to become worse. Thesesymptoms might include hearing loss, ear irritation, etc. A build-up of ear wax might also make it difficult to see into the ear, which may result in potential problems going undiagnosed. How can ear wax impaction be prevented? Do not stick anything into your ears to clean them. Use cotton swabs only on the outside of the ear. If you have a severe enough problem with ear wax that you need to have it removed by a health professional more than once a year, discuss with them which method of prevention (if any) may work best for you. References [employer]. Earwax Accessed 02/17/2013. [employer]. Nothing Smaller Than Your Elbow, Please Accessed 02/17/2013. Copyright 9196-3373 [facility]. All rights reserved This information is provided by the [facility] and is not intended to replace the medical advice of your doctor or health care provider. Please consult your health care provider for advice about a specific medical condition. For additional health information, please contact the [facility] at the [facility] or toll-free extension [phone]. If you prefer, you may visit [email or web address] or [email or web address]. This document was last reviewed on: 2016 documented in this encounterHarrison [facility] Hospital03-21-2022 History of Present illness Narrative* Angelica Martinez APRN.[employer]ER - 05/21/2021 2:48 PM EDT This note was created using [employer]. Subjective Guicho Martinez is a 85 year old female who presents with decreased hearing and tinnitus in left ear x 1 day after showering. She denies any head strike or exposure to loud noise. Denies fever or associated URI symptoms. Review of Systems Constitutional: Negative for fatigue and fever. HENT: Positive for hearing loss and tinnitus. Negative for congestion, ear discharge, ear pain, sinus pressure and sinus pain. Eyes: Negative for visual disturbance. Respiratory: Negative for cough and shortness of breath. Cardiovascular: Negative for chest pain and palpitations. Gastrointestinal: Negative for constipation, diarrhea, nausea and vomiting. Skin: Negative for color change. Neurological: Negative for speech difficulty, light-headedness and headaches. Psychiatric/Behavioral: Negative for confusion. Objective BP 130/88 Pulse 73 Temp 36.5 C (97.7 F) Resp 18 Wt 48.9 kg (107 lb 12.8 oz) SpO2 99% BMI 18.63 kg/m PAST MEDICAL HISTORY Diagnosis Date Benign neoplasm of colon Diverticulosis of colon (without mention of hemorrhage) Internal hemorrhoids without mention of complication ITP (idiopathic thrombocytopenic purpura) History of episode in 1999 Other and unspecified hyperlipidemia Unspecified glaucoma(365.9) PAST SURGICAL HISTORY Procedure Laterality Date COLONOSCOPY FLX DX W/COLLJ SPEC WHEN PFRMD 03/20/05 Colonoscopy COLONOSCOPY FLX DX W/COLLJ SPEC WHEN PFRMD 08/29/10 COLONOSCOPY W/BIOPSY SINGLE/MULTIPLE 09-30-13 EGD TRANSORAL BIOPSY SINGLE/MULTIPLE 09-30-13 GASTROESOPHAG REFLX TEST W/TELEMTRY PH ELTRD 09-30-13 PH PROBE LAPS RPR PARAESPHGL HRNA INCL FUNDPLSTY W/O MESH 12-09-13 PAST SURGICAL HISTORY OF 1957 growth of ovary/growth off bowell/appendectomy PAST SURGICAL HISTORY OF 1967 tumor removed behind naval PAST SURGICAL HISTORY OF 05/2007 knee surgery PAST SURGICAL HISTORY OF 2011 bilateral cataract PAST SURGICAL HISTORY OF bilat great toe repair PAST SURGICAL HISTORY OF left shoulder repair, arthoscopy TONSILLECTOMY PRIMARY/SECONDARY <AGE 14 Tonsillectomy TOTAL ABDOMINAL HYSTERECT W/WO RMVL TUBE OVARY 1984 Hysterectomy, MOOSE ALLERGIES Asa [Salicylates], Ibuprofen, and Penicillins MEDICATIONS alendronate (FOSAMAX) 35 mg tablet Take on empty stomach in the morning with 8 oz of water. After taking do not have food, drink, medications, or supplements for at least one half-hour. Take 1 tabletPO once each week. cholecalciferol, vitamin D3, (VITAMIN D3 ORAL) Take 1,000 Units by mouth once daily. BIOTIN ORAL Take 10,000 mcg by mouth once daily. calcium carbonate/vitamin D3 (CALCIUM 600 + D ORAL) Take 1 tablet by mouth twice daily. hydroxychloroquine (PLAQUENIL) 200 mg tablet Take 1.5 tablets by mouth once daily. Per rheumatology calcium carbonate-vitamin D (OS-DEBBI 250 W/D) 250 (625)-125 mg-unit tab Take 1 tablet by mouth once daily. LUMIGAN 0.03 % EYE DROPS one drop each eye nightly THERAPEUTIC MULTIVITAMIN TAB Take one(1) tablet daily. carbamide peroxide (DEBROX) 6.5 % otic solution Use 5 Drops in both ears twice daily. FAMILY HISTORY Problem Relation Age of Onset Diabetes Mother feeding tube Stroke Father colon cancer Heart Brother aneurysm behind heart Aneurysm Brother stomach Social History Tobacco Use Smoking status: Never Smoker Smokeless tobacco: Never Used Substance Use Topics Alcohol use: No Drug use: Not on file Physical Exam Vitals reviewed. Constitutional: General: She is not in acute distress. Appearance: Normal appearance. HENT: Head: Normocephalic and atraumatic. Right Ear: External ear normal. There is impacted cerumen. Left Ear: External ear normal. There is impacted cerumen. Cardiovascular: Rate and Rhythm: Normal rate. Pulmonary: Effort: Pulmonary effort is normal. Skin: General: Skin is warm and dry. Capillary Refill: Capillary refill takes less than 2 seconds. Coloration: Skin is not jaundiced or pale. Neurological: General: No focal deficit present. Mental Status: She is alert and oriented to person, place, and time. Mental status is at baseline. Psychiatric: Mood and Affect: Mood normal. Behavior: Behavior normal. Assessment and Plan ASSESSMENT/PLAN: 1. Bilateral impacted cerumen - ICD9: 380.4, ICD10: H61.23 - [facility] MGMT EAR WAX REMOVAL - CARBAMIDE PEROXIDE 6.5 % EAR DROPS - Cerumen removed via irrigation by MA, patient tolerated procedure well. Post procedure bilateral ear canal is clear and TM is well visualized with bony landmarks intact and no sign of inflammation/infection. Jon Wilhelm RN - Follow-up with your PCP in 3-5 days if symptoms have not improved or sooner if symptoms worsen - Discussed red flags and need for immediate medical evaluation if any occur. TEACHING PROVIDER (Physician/PA/TRAIN MASTER) NOTE OF PERSONAL INVOLVEMENT IN CARE: I have personally seen and examined the patient and performed the medical decision-making components. I have reviewed the Advanced Practice Registered Nurse (TRAIN MASTER) Student's documentation and verified the findings in the note as written. Any additions or changes are noted in bold/italics. 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 Overview: surgically corrected December 2013 ITP (idiopathic thrombocytopenic purpura) 06/10/2013 Overview: History of episode in 2000 documented as of this encounter (statuses as of 06/20/2021) [facility] Narrative* Problem Noted Date Resolved Date 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 Overview: surgically corrected December 2013 ITP (idiopathic thrombocytopenic purpura) 06/10/2013 Overview: History of episode in 2000 documented as of this encounter (statuses as of 07/23/2021) [facility] Narrative* Problem Noted Date Resolved Date 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 Overview: surgically corrected December 2013 ITP (idiopathic thrombocytopenic purpura) 06/10/2013 Overview: History of episode in 2000 documented as of this encounter (statuses as of 07/26/2021) [facility] Narrative* Problem Noted Date Resolved Date 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 Overview: surgically corrected December 2013 ITP (idiopathic thrombocytopenic purpura) 06/10/2013 Overview: History of episode in 2000 documented as of this encounter (statuses as of 12/24/2021) [facility] Narrative* Problem Noted Date Resolved Date 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 Overview: surgically corrected December 2013 ITP (idiopathic thrombocytopenic purpura) 06/10/2013 Overview: History of episode in 2000 documented as of this encounter (statuses as of 03/08/2022) [facility] Narrative* Problem Noted Date Resolved Date 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 Overview: surgically corrected December 2013 ITP (idiopathic thrombocytopenic purpura) 06/10/2013 Overview: History of episode in 2000 documented as of this encounter (statuses as of 03/28/2022) [facility] Narrative* Problem Noted Date Resolved Date 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 Overview: surgically corrected December 2013 ITP (idiopathic thrombocytopenic purpura) 06/10/2013 Overview: History of episode in 2000 documented as of this encounter (statuses as of 04/08/2022) [facility] Narrative* Problem Noted Date Resolved Date 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 Overview: surgically corrected December 2013 ITP (idiopathic thrombocytopenic purpura) 06/10/2013 Overview: History of episode in 2000 documented as of this encounter (statuses as of 04/15/2022) [facility] Narrative* Problem Noted Date Resolved Date 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 Overview: surgically corrected December 2013 ITP (idiopathic thrombocytopenic purpura) 06/10/2013 Overview: History of episode in 2000 documented as of this encounter (statuses as of 04/25/2022) [facility] Narrative* Problem Noted Date Resolved Date 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 Overview: surgically corrected December 2013 ITP (idiopathic thrombocytopenic purpura) 06/10/2013 Overview: History of episode in 2000 documented as of this encounter (statuses as of 04/26/2022) [facility] Narrative* Problem Noted Date Resolved Date 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 Overview: surgically corrected December 2013 ITP (idiopathic thrombocytopenic purpura) 06/10/2013 Overview: History of episode in 2000 documented as of this encounter (statuses as of 05/09/2022) [facility] Narrative* Problem Noted Date Resolved Date 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 Overview: surgically corrected December 2013 ITP (idiopathic thrombocytopenic purpura) 06/10/2013 Overview: History of episode in 2000 documented as of this encounter (statuses as of 05/19/2022) [facility] Narrative* Problem Noted Date Resolved Date 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 Overview: surgically corrected December 2013 ITP (idiopathic thrombocytopenic purpura) 06/10/2013 Overview: History of episode in 2000 documented as of this encounter (statuses as of 06/22/2022) [facility] Narrative* Problem Noted Date Resolved Date 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 Overview: surgically corrected December 2013 ITP (idiopathic thrombocytopenic purpura) 06/10/2013 Overview: History of episode in 2000 documented as of this encounter (statuses as of 06/25/2022) [facility] Narrative* Problem Noted Date Resolved Date 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 Overview: surgically corrected December 2013 ITP (idiopathic thrombocytopenic purpura) 06/10/2013 Overview: History of episode in 2000 documented as of this encounter (statuses as of 06/28/2022) [facility] Narrative* Problem Noted Date Resolved Date 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 Overview: surgically corrected December 2013 ITP (idiopathic thrombocytopenic purpura) 06/10/2013 Overview: History of episode in 2000 documented as of this encounter (statuses as of 07/16/2022) [facility] Narrative* Problem Noted Date Resolved Date 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 Overview: surgically corrected December 2013 ITP (idiopathic thrombocytopenic purpura) 06/10/2013 Overview: History of episode in 2000 documented as of this encounter (statuses as of 08/27/2022) [facility] Narrative* Problem Noted Date Resolved Date 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 Overview: surgically corrected December 2013 ITP (idiopathic thrombocytopenic purpura) 06/10/2013 Overview: History of episode in 2000 documented as of this encounter (statuses as of 08/28/2022) [facility] Narrative* Problem Noted Date Resolved Date 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 Overview: surgically corrected December 2013 ITP (idiopathic thrombocytopenic purpura) 06/10/2013 Overview: History of episode in 2000 documented as of this encounter (statuses as of 08/28/2022) [facility] Narrative* Problem Noted Date Resolved Date 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 Overview: surgically corrected December 2013 ITP (idiopathic thrombocytopenic purpura) 06/10/2013 Overview: History of episode in 2000 documented as of this encounter (statuses as of 08/29/2022) [facility] Narrative* Problem Noted Date Resolved Date 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 Overview: surgically corrected December 2013 ITP (idiopathic thrombocytopenic purpura) 06/10/2013 Overview: History of episode in 2000 documented as of this encounter (statuses as of 08/29/2022) [facility] Narrative* Problem Noted Date Resolved Date 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 Overview: surgically corrected December 2013 ITP (idiopathic thrombocytopenic purpura) 06/10/2013 Overview: History of episode in 2000 documented as of this encounter (statuses as of 08/30/2022) [facility] Narrative* Problem Noted Date Resolved Date 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 Overview: surgically corrected December 2013 ITP (idiopathic thrombocytopenic purpura) 06/10/2013 Overview: History of episode in 2000 documented as of this encounter (statuses as of 09/05/2022) [facility] Narrative* Problem Noted Date Diagnosed Date Resolved Date 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 06/21/2015 Overview: surgically corrected December 2013 ITP (idiopathic thrombocytopenic purpura) 06/10/2013 Overview: History of episode in 2000 documented as of this encounter (statuses as of 12/11/2022) [facility] Narrative* Problem Noted Date Diagnosed Date Resolved Date 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 06/21/2015 Overview: surgically corrected December 2013 ITP (idiopathic thrombocytopenic purpura) 06/10/2013 Overview: History of episode in 2000 documented as of this encounter (statuses as of 01/05/2023) [facility] Narrative* Problem Noted Date Diagnosed Date Resolved Date 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 06/21/2015 Overview: surgically corrected December 2013 ITP (idiopathic thrombocytopenic purpura) 06/10/2013 Overview: History of episode in 2000 documented as of this encounter (statuses as of 01/09/2023) [facility] Narrative* Problem Noted Date Diagnosed Date Resolved Date 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 06/21/2015 Overview: surgically corrected December 2013 ITP (idiopathic thrombocytopenic purpura) 06/10/2013 Overview: History of episode in 2000 documented as of this encounter (statuses as of 01/16/2023) [facility] Narrative* Problem Noted Date Diagnosed Date Resolved Date 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 06/21/2015 Overview: surgically corrected December 2013 ITP (idiopathic thrombocytopenic purpura) 06/10/2013 Overview: History of episode in 2000 documented as of this encounter (statuses as of 01/21/2023) [facility] Narrative* Problem Noted Date Diagnosed Date Resolved Date 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 06/21/2015 Overview: surgically corrected December 2013 ITP (idiopathic thrombocytopenic purpura) 06/10/2013 Overview: History of episode in 2000 documented as of this encounter (statuses as of 02/06/2023) [facility] Narrative* Problem Noted Date Diagnosed Date Resolved Date 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 06/21/2015 Overview: surgically corrected December 2013 ITP (idiopathic thrombocytopenic purpura) 06/10/2013 Overview: History of episode in 2000 documented as of this encounter (statuses as of 05/15/2023) [facility] Narrative* Problem Noted Date Diagnosed Date Resolved Date 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 06/21/2015 Overview: surgically corrected December 2013 ITP (idiopathic thrombocytopenic purpura) 06/10/2013 Overview: History of episode in 2000 documented as of this encounter (statuses as of 05/23/2023) [facility] Narrative* Problem Noted Date Diagnosed Date Resolved Date 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 06/21/2015 Overview: surgically corrected December 2013 ITP (idiopathic thrombocytopenic purpura) 06/10/2013 Overview: History of episode in 2000 documented as of this encounter (statuses as of 06/17/2023) [facility] Diagnosis Bilateral impacted cerumen- Primary Impacted cerumen [facility] Diagnosis Osteoporosis, unspecified osteoporosis type, unspecified pathological fracture presence [facility]No assessment information [facility] Work [facility]: [facility]* Diagnosis Osteoporosis, unspecified osteoporosis type, unspecified pathological fracture presence- Primary Hyperlipidemia, unspecified hyperlipidemia type Chronic ITP (idiopathic thrombocytopenia) (HCC) Immune thrombocytopenic purpura Stage 3a chronic kidney disease (HCC) Elevated TSH Nonspecific abnormal results of thyroid function study Hyperglycemia Other abnormal glucose Fatigue, unspecified type Right carotid bruit Other symptoms involving cardiovascular system [facility] Diagnosis Osteoporosis, unspecified osteoporosis type, unspecified pathological fracture presence [facility] Mixed hyperlipidemia- Primary Elevated TSH Nonspecific abnormal results of thyroid function study Elevated blood sugar Other abnormal glucose Stage 3a chronic kidney disease (HCC) Bilateral carotid artery stenosis Occlusion and stenosis of carotid artery without mention of cerebral infarction Memory deficit Memory loss Osteoporosis, unspecified osteoporosis type, unspecified pathological fracture presence Advance directive discussed with patient Other specified counseling Microscopic hematuria [facility] Diagnosis Onset Date Resolution Status Acute GI bleeding acute [facility] Work Phone: Evaluation note* Diagnosis Dementia of the Alzheimer's type, with late onset, uncomplicated (HCC)- Primary Alzheimer's disease [facility] Diagnosis Onset Date Resolution Status Acute GI bleeding resolved [facility] Work Phone: Evaluation note* Diagnosis Dementia without behavioral disturbance, psychotic disturbance, mood disturbance, or anxiety, unspecified dementia severity, unspecified dementia type (HCC)- Primary [facility] Diagnosis Osteoporosis, unspecified osteoporosis type, unspecified pathological fracture presence [facility] Diagnosis Encounter for Medicare annual wellness exam- Primary Routine general medical examination at a health care facility Mixed hyperlipidemia Elevated blood sugar Other abnormal glucose Elevated TSH Nonspecific abnormal results of thyroid function study Bilateral carotid artery stenosis Occlusion and stenosis of carotid artery without mention of cerebral infarction Stage 3a chronic kidney disease (HCC) Dementia of the Alzheimer's type, with late onset, uncomplicated (HCC) Alzheimer's disease Glaucoma, unspecified glaucoma type, unspecified laterality Hydrocephalus in diseases classified elsewhere (HCC) [facility] Memory deficit Memory loss [facility] Diagnosis Bilateral carotid artery stenosis Occlusion and stenosis of carotid artery without mention of cerebral infarction [facility] Diagnosis Osteoporosis, unspecified osteoporosis type, unspecified pathological fracture presence [facility] Diagnosis Hypercalcemia- Primary [facility] Diagnosis Osteoporosis, unspecified osteoporosis type, unspecified pathological fracture presence [facility] Diagnosis Balance problems- Primary Other symptoms involving nervous and musculoskeletal systems Risk for falls Personal history of fall [facility] Diagnosis Encounter for Medicare annual wellness exam- Primary Routine general medical examination at a health care facility Mixed hyperlipidemia Elevated blood sugar Other abnormal glucose Elevated TSH Nonspecific abnormal results of thyroid function study Bilateral carotid artery stenosis Occlusion and stenosis of carotid artery without mention of cerebral infarction Stage 3a chronic kidney disease (HCC) Dementia of the Alzheimer's type, with late onset, uncomplicated (HCC) Alzheimer's disease Polyarticular arthritis Unspecified polyarthropathy or polyarthritis, site unspecified Hydrocephalus in diseases classified elsewhere (HCC) Osteoporosis, unspecified osteoporosis type, unspecified pathological fracture presence Corns Corns and callosities Advance directive discussed with patient Other specified counseling Medication management Encounter for long-term (current) use of other medications [facility] Diagnosis Dementia without behavioral disturbance, psychotic disturbance, mood disturbance, or anxiety, unspecified dementia severity, unspecified dementia type (HCC)- Primary [facility]* Diagnosis Facial laceration, subsequent encounter- Primary Visit for suture removal Encounter for removal of sutures [facility] Diagnosis Dementia of the Alzheimer's type, with late onset, uncomplicated (HCC)- Primary Alzheimer's disease [facility] Diagnosis Mixed hyperlipidemia- Primary Stage 3a chronic kidney disease (HCC) Osteoporosis, unspecified osteoporosis type, unspecified pathological fracture presence Dementia of the Alzheimer's type, with late onset, uncomplicated (HCC) Alzheimer's disease Advance directive discussed with patient Other specified counseling Elevated blood sugar Other abnormal glucose Elevated TSH Nonspecific abnormal results of thyroid function study Hydrocephalus in diseases classified elsewhere (HCC) Corns Corns and callosities [facility]* Diagnosis Dementia without behavioral disturbance, psychotic disturbance, mood disturbance, or anxiety, unspecified dementia severity, unspecified dementia type (HCC)- Primary [facility]* Diagnosis Diarrhea, unspecified type- Primary documented in this encounter [facility] for referral (narrative)* Outpatient Procedure (Routine) - Authorized Specialty Diagnoses / Procedures Referred By Connor gandhi Ref[facility] To [facility] Diagnoses Right carotid bruit Procedures US CAROTID ARTERIES ALLEN VAS LAB DUPLEX SCAN EXTRACRANIAL ART COMPL BI STUDY Louis Isaacs, DO [address] [place] [address] [facility] [address] [place] [address] Referral ID Status Reason Start Date Expiration Date Visits Requested Visits Authorized [id number] Authorized Auto-Generat ed Referral 07/23/2021 07/23/2022 1 1 [facility] Outpatient Procedure (Routine) - Pending Review Specialty Diagnoses / Procedures Referred By Contac t Referred To Contact [facility] Diagnoses Bilateral carotid artery stenosis Procedures US CAROTID ARTERIES ALLEN VAS LAB DUPLEX SCAN EXTRACRANIAL ART COMPL BI STUDY Bairon Torres MD [address] [place] [address] [facility] [address] [place] [address] Referral ID Status Reason Start Date Expiration Date Visits Requested Visits Authorized [id number] Pending Review Auto-Generat ed Referral 09/04/2022 09/04/2023 1 1 [facility] Summary Purpose Family History No Family History Records FoundNo Family History Records FoundNo Family History Records Found Advance Directives Documents on File Type Date Recorded 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 Advance Directive(s) 02/15/2013 12:41 PM Advance Directive Response Recorded Date/ Time Advance Directives Yes December 02, 2013 9:19am Living Will No February 27 8:36pm Power of Humidifier Maintenance Worker No February 27, 2021 8:36pm Documents on File Type Date Recorded 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 Advance Directive(s) 02/15/2013 12:41 PM Advance Directive Response Recorded Date/ Time Advance Directives Yes December 02, 2013 8:19am Living Will No March 09 3:28am Power of Humidifier Maintenance Worker No March 09 023 3:28am Advance Directive Response Recorded Date/ Time Advance Directives Yes December 02, 2013 8:19am Living Will No March 11 1:56am Power of Humidifier Maintenance Worker No March 11 023 1:56am Advance Directive Response Recorded Date/ Time Name of Medical Power of Humidifier Maintenance Worker zechariah quigley April 24, 2022 4:45pm Advance Directives Yes December 02, 2013 8:19am Living Will Yes April 24, 023 4:45pm Power of Humidifier Maintenance Worker Yes April 24, 2022 4:45pm Advance Directive Response Recorded Date/ Time Name of Medical Power of Humidifier Maintenance Worker zechariah quigley April 24, 2022 5:45pm Advance Directives Yes December 02, 2013 9:19am Living Will Yes April 24 023 5:45pm Power of Humidifier Maintenance Worker Yes April 24, 2022 5:45pm Advance Directive Response Recorded Date/ Time Advance Directives Yes December 02, 2013 8:19am Living Will Yes April 24 023 4:45pm Power of Humidifier Maintenance Worker Yes April 24, 2022 4:45pm Chief Complaint and Reason for Visit Chief Complaint COVID POS LT EYE FIELD DEFECTS Chief Complaint n/v Chief Complaint n/v general illness Chief Complaint n/v general illness LOWER GI BLEED GI BLEED GI BLEED LOWER GI BLEED Reason for Visit Acute GI bleeding Chief Complaint n/v general illness LOWER GI BLEED GI BLEED GI BLEED AM EKG LOWER GI BLEED PAIN- COPY PCP Reason for Visit Acute GI bleeding Chief Complaint Occlusion and stenos is of bilateral carotid arteri Reason for Referral Specialty Diagnoses / Procedures Referred By Connor t Referred To Contact [facility] Diagnoses Memory deficit Procedures MRI BRAIN WO IVCON MRI BRAIN BRAIN STEM W/O CONTRAST MATERIAL Bairon Torres MD [address] [place] [address] [facility] Referral ID Status Reason Start Date Expiration Date Visits Requested Visits Authorized [id number] Authorized Auto-Generat ed Referral 03/06/2022 04/05/2023 1 1 Specialty Diagnoses / Procedures Referred By Contac t Referred To Contact [facility] Diagnoses Memory deficit Procedures MRI BRAIN WO IVCON MRI BRAIN BRAIN STEM W/O CONTRAST MATERIAL Bairon Torres MD [address] [place] [address] Mr Imaging [id number] Referral ID Status Reason Start Date Expiration Date V isits Requested Visits Authorized [id number] Closed Auto-Generate d Referral 03/06/2022 04/05/2023 1 1 Additional Source Comments INFORMATION SOURCE (unrecogn ized section and content) DATE CREATED AUTHOR 08/26/2017 [facility] DATE CREATED AUTHOR AUTHOR'S ORGANIZ ATION 05/21/2024 [facility] DATE CREATED AUTHOR AUTHOR'S ORGANIZ ATION 08/22/2024 [facility] Source Comments (unrecognize d section and content) In the event this informatio n is protected by the Federal Confidentiality of Alcohol and Drug Abuse Patient Records regulations: The Federal rules restrict any use of the information to criminally investigate or prosecute any alcohol or drug abuse patient.[facility]In the event this information is protected by the Federal Confidentiality of Alcohol and Drug Abuse Patient Records regulations: The Federal rules restrict any use of the information to criminally investigate or prosecute any alcohol or drug abuse patient.[facility] HospitalIn the event this information is protected by the Federal Confidentiality of Alcohol and Drug Abuse Patient Records regulations: The Federal rules restrict any use of the information to criminally investigate or prosecute any alcohol or drug abuse patient.[facility] HospitalIn the event this information is protected by the Federal Confidentiality of Alcohol and Drug Abuse Patient Records regulations: The Federal rules restrict any use of the information to criminally investigate or prosecute any alcohol or drug abuse patient.[facility] HospitalIn the event this information is protected by the Federal Confidentiality of Alcohol and Drug Abuse Patient Records regulations: The Federal rules restrict any use of the information to criminally investigate or prosecute any alcohol or drug abuse patient.[facility] HospitalIn the event this information is protected by the Federal Confidentiality of Alcohol and Drug Abuse Patient Records regulations: The Federal rules restrict any use of the information to criminally investigate or prosecute any alcohol or drug abuse patient.[facility] HospitalIn the event this information is protected by the Federal Confidentiality of Alcohol and Drug Abuse Patient Records regulations: The Federal rules restrict any use of the information to criminally investigate or prosecute any alcohol or drug abuse patient.[facility] HospitalIn the event this information is protected by the Federal Confidentiality of Alcohol and Drug Abuse Patient Records regulations: The Federal rules restrict any use of the information to criminally investigate or prosecute any alcohol or drug abuse patient.[facility] HospitalIn the event this information is protected by the Federal Confidentiality of Alcohol and Drug Abuse Patient Records regulations: The Federal rules restrict any use of the information to criminally investigate or prosecute any alcohol or drug abuse patient.[facility] HospitalIn the event this information is protected by the Federal Confidentiality of Alcohol and Drug Abuse Patient Records regulations: The Federal rules restrict any use of the information to criminally investigate or prosecute any alcohol or drug abuse patient.[facility] HospitalIn the event this information is protected by the Federal Confidentiality of Alcohol and Drug Abuse Patient Records regulations: The Federal rules restrict any use of the information to criminally investigate or prosecute any alcohol or drug abuse patient.[facility] HospitalIn the event this information is protected by the Federal Confidentiality of Alcohol and Drug Abuse Patient Records regulations: The Federal rules restrict any use of the information to criminally investigate or prosecute any alcohol or drug abuse patient.[facility] HospitalIn the event this information is protected by the Federal Confidentiality of Alcohol and Drug Abuse Patient Records regulations: The Federal rules restrict any use of the information to criminally investigate or prosecute any alcohol or drug abuse patient.[facility] HospitalIn the event this information is protected by the Federal Confidentiality of Alcohol and Drug Abuse Patient Records regulations: The Federal rules restrict any use of the information to criminally investigate or prosecute any alcohol or drug abuse patient.[facility] HospitalIn the event this information is protected by the Federal Confidentiality of Alcohol and Drug Abuse Patient Records regulations: The Federal rules restrict any use of the information to criminally investigate or prosecute any alcohol or drug abuse patient.[facility] HospitalIn the event this information is protected by the Federal Confidentiality of Alcohol and Drug Abuse Patient Records regulations: The Federal rules restrict any use of the information to criminally investigate or prosecute any alcohol or drug abuse patient.[facility] HospitalIn the event this information is protected by the Federal Confidentiality of Alcohol and Drug Abuse Patient Records regulations: The Federal rules restrict any use of the information to criminally investigate or prosecute any alcohol or drug abuse patient.[facility] HospitalIn the event this information is protected by the Federal Confidentiality of Alcohol and Drug Abuse Patient Records regulations: The Federal rules restrict any use of the information to criminally investigate or prosecute any alcohol or drug abuse patient.[facility] HospitalIn the event this information is protected by the Federal Confidentiality of Alcohol and Drug Abuse Patient Records regulations: The Federal rules restrict any use of the information to criminally investigate or prosecute any alcohol or drug abuse patient.[facility] HospitalIn the event this information is protected by the Federal Confidentiality of Alcohol and Drug Abuse Patient Records regulations: The Federal rules restrict any use of the information to criminally investigate or prosecute any alcohol or drug abuse patient.[facility] HospitalIn the event this information is protected by the Federal Confidentiality of Alcohol and Drug Abuse Patient Records regulations: The Federal rules restrict any use of the information to criminally investigate or prosecute any alcohol or drug abuse patient.[facility] HospitalIn the event this information is protected by the Federal Confidentiality of Alcohol and Drug Abuse Patient Records regulations: The Federal rules restrict any use of the information to criminally investigate or prosecute any alcohol or drug abuse patient.[facility] HospitalIn the event this information is protected by the Federal Confidentiality of Alcohol and Drug Abuse Patient Records regulations: The Federal rules restrict any use of the information to criminally investigate or prosecute any alcohol or drug abuse patient.[facility] HospitalIn the event this information is protected by the Federal Confidentiality of Alcohol and Drug Abuse Patient Records regulations: The Federal rules restrict any use of the information to criminally investigate or prosecute any alcohol or drug abuse patient.[facility] HospitalIn the event this information is protected by the Federal Confidentiality of Alcohol and Drug Abuse Patient Records regulations: The Federal rules restrict any use of the information to criminally investigate or prosecute any alcohol or drug abuse patient.[facility] HospitalIn the event this information is protected by the Federal Confidentiality of Alcohol and Drug Abuse Patient Records regulations: The Federal rules restrict any use of the information to criminally investigate or prosecute any alcohol or drug abuse patient.[facility] HospitalIn the event this information is protected by the Federal Confidentiality of Alcohol and Drug Abuse Patient Records regulations: The Federal rules restrict any use of the information to criminally investigate or prosecute any alcohol or drug abuse patient.[facility] HospitalIn the event this information is protected by the Federal Confidentiality of Alcohol and Drug Abuse Patient Records regulations: The Federal rules restrict any use of the information to criminally investigate or prosecute any alcohol or drug abuse patient.[facility] HospitalIn the event this information is protected by the Federal Confidentiality of Alcohol and Drug Abuse Patient Records regulations: The Federal rules restrict any use of the information to criminally investigate or prosecute any alcohol or drug abuse patient.[facility] HospitalIn the event this information is protected by the Federal Confidentiality of Alcohol and Drug Abuse Patient Records regulations: The Federal rules restrict any use of the information to criminally investigate or prosecute any alcohol or drug abuse patient.[facility] HospitalIn the event this information is protected by the Federal Confidentiality of Alcohol and Drug Abuse Patient Records regulations: The Federal rules restrict any use of the information to criminally investigate or prosecute any alcohol or drug abuse patient.[facility] HospitalIn the event this information is protected by the Federal Confidentiality of Alcohol and Drug Abuse Patient Records regulations: The Federal rules restrict any use of the information to criminally investigate or prosecute any alcohol or drug abuse patient.[facility] HospitalIn the event this information is protected by the Federal Confidentiality of Alcohol and Drug Abuse Patient Records regulations: The Federal rules restrict any use of the information to criminally investigate or prosecute any alcohol or drug abuse patient.[facility] HospitalIn the event this information is protected by the Federal Confidentiality of Alcohol and Drug Abuse Patient Records regulations: The Federal rules restrict any use of the information to criminally investigate or prosecute any alcohol or drug abuse patient.[facility] HospitalIn the event this information is protected by the Federal Confidentiality of Alcohol and Drug Abuse Patient Records regulations: The Federal rules restrict any use of the information to criminally investigate or prosecute any alcohol or drug abuse patient.[facility] HospitalIn the event this information is protected by the Federal Confidentiality of Alcohol and Drug Abuse Patient Records regulations: The Federal rules restrict any use of the information to criminally investigate or prosecute any alcohol or drug abuse patient.[facility] HospitalIn the event this information is protected by the Federal Confidentiality of Alcohol and Drug Abuse Patient Records regulations: The Federal rules restrict any use of the information to criminally investigate or prosecute any alcohol or drug abuse patient.[facility] HospitalIn the event this information is protected by the Federal Confidentiality of Alcohol and Drug Abuse Patient Records regulations: The Federal rules restrict any use of the information to criminally investigate or prosecute any alcohol or drug abuse patient.[facility] HospitalIn the event this information is protected by the Federal Confidentiality of Alcohol and Drug Abuse Patient Records regulations: The Federal rules restrict any use of the information to criminally investigate or prosecute any alcohol or drug abuse patient.[facility] HospitalIn the event this information is protected by the Federal Confidentiality of Alcohol and Drug Abuse Patient Records regulations: The Federal rules restrict any use of the information to criminally investigate or prosecute any alcohol or drug abuse patient.[facility] HospitalIn the event this information is protected by the Federal Confidentiality of Alcohol and Drug Abuse Patient Records regulations: The Federal rules restrict any use of the information to criminally investigate or prosecute any alcohol or drug abuse patient.[facility] HospitalIn the event this information is protected by the Federal Confidentiality of Alcohol and Drug Abuse Patient Records regulations: The Federal rules restrict any use of the information to criminally investigate or prosecute any alcohol or drug abuse patient.[facility] HospitalIn the event this information is protected by the Federal Confidentiality of Alcohol and Drug Abuse Patient Records regulations: The Federal rules restrict any use of the information to criminally investigate or prosecute any alcohol or drug abuse patient.[facility] HospitalIn the event this information is protected by the Federal Confidentiality of Alcohol and Drug Abuse Patient Records regulations: The Federal rules restrict any use of the information to criminally investigate or prosecute any alcohol or drug abuse patient.[facility] HospitalIn the event this information is protected by the Federal Confidentiality of Alcohol and Drug Abuse Patient Records regulations: The Federal rules restrict any use of the information to criminally investigate or prosecute any alcohol or drug abuse patient.[facility] HospitalIn the event this information is protected by the Federal Confidentiality of Alcohol and Drug Abuse Patient Records regulations: The Federal rules restrict any use of the information to criminally investigate or prosecute any alcohol or drug abuse patient.[facility] HospitalIn the event this information is protected by the Federal Confidentiality of Alcohol and Drug Abuse Patient Records regulations: The Federal rules restrict any use of the information to criminally investigate or prosecute any alcohol or drug abuse patient.[facility] HospitalIn the event this information is protected by the Federal Confidentiality of Alcohol and Drug Abuse Patient Records regulations: The Federal rules restrict any use of the information to criminally investigate or prosecute any alcohol or drug abuse patient.[facility] HospitalIn the event this information is protected by the Federal Confidentiality of Alcohol and Drug Abuse Patient Records regulations: The Federal rules restrict any use of the information to criminally investigate or prosecute any alcohol or drug abuse patient.[facility] HospitalIn the event this information is protected by the Federal Confidentiality of Alcohol and Drug Abuse Patient Records regulations: The Federal rules restrict any use of the information to criminally investigate or prosecute any alcohol or drug abuse patient.[facility] HospitalIn the event this information is protected by the Federal Confidentiality of Alcohol and Drug Abuse Patient Records regulations: The Federal rules restrict any use of the information to criminally investigate or prosecute any alcohol or drug abuse patient.[facility] HospitalIn the event this information is protected by the Federal Confidentiality of Alcohol and Drug Abuse Patient Records regulations: The Federal rules restrict any use of the information to criminally investigate or prosecute any alcohol or drug abuse patient.[facility] HospitalIn the event this information is protected by the Federal Confidentiality of Alcohol and Drug Abuse Patient Records regulations: The Federal rules restrict any use of the information to criminally investigate or prosecute any alcohol or drug abuse patient.[facility] HospitalIn the event this information is protected by the Federal Confidentiality of Alcohol and Drug Abuse Patient Records regulations: The Federal rules restrict any use of the information to criminally investigate or prosecute any alcohol or drug abuse patient.[facility] HospitalIn the event this information is protected by the Federal Confidentiality of Alcohol and Drug Abuse Patient Records regulations: The Federal rules restrict any use of the information to criminally investigate or prosecute any alcohol or drug abuse patient.[facility] HospitalIn the event this information is protected by the Federal Confidentiality of Alcohol and Drug Abuse Patient Records regulations: The Federal rules restrict any use of the information to criminally investigate or prosecute any alcohol or drug abuse patient.[facility] HospitalIn the event this information is protected by the Federal Confidentiality of Alcohol and Drug Abuse Patient Records regulations: The Federal rules restrict any use of the information to criminally investigate or prosecute any alcohol or drug abuse patient.[facility] HospitalIn the event this information is protected by the Federal Confidentiality of Alcohol and Drug Abuse Patient Records regulations: The Federal rules restrict any use of the information to criminally investigate or prosecute any alcohol or drug abuse patient.[facility] Reason for Visit (unrecogniz ed section and content) Reason Comments Ear Problem L ear full x1 day Reason Onset Date Comments Refill Request 06/20/2021 Reason Comments Follow Up 6 months Reason Onset Date Comments Refill Request 12/24/2021 Reason Comments Establish Care Reason Comments Medication Request Reason Onset Date Comments Refill Request 04/07/2022 Reason Comments Results Reason Comments ER F/U ER - [facility] Reason Comments ER F/U ER [facility] Reason Comments Follow Up Patient is here for follow up on memory. 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) Procedures CONSULT TO NEUROLOGY OFFICE/OUTPATIENT [facility] 60-74 MINUTES Bairon Torres MD [facility] [place] [address] Referral ID Status Reason Start Date Expiration Date Visits Requested Visits Authorized [id number] Pending Review PCP Requested Referral 04/01/2022 04/01/2023 1 1 Reason Comments Medication Question Reason Onset Date Comments Refill Request 07/14/2022 Reason Onset Date Comments Refill Request 08/24/2022 Reason Onset Date Comments Refill Request 08/27/2022 Reason Onset Date Comments Refill Request 08/24/2022 Refill Request 08/28/2022 Reason Comments Medicare Wellness Exam Specialty Diagnoses / Procedures Referred By Connor gandhi Referred To Contact MR IMAGING Diagnoses Memory deficit Procedures MRI BRAIN WO IVCON MRI BRAIN BRAIN STEM W/O CONTRAST MATERIAL Bairon Torres MD [facility] [place] [address] [place] [id number] Referral ID Status Reason Start Date Expiration Date V isits Requested Visits Authorized [id number] Closed Auto-Generate d Referral 03/06/2022 04/05/2023 1 1 Reason Comments Outside Imaging Carotid US Results Reason Onset Date Comments Refill Request 01/20/2023 Reason Onset Date Comments Refill Request 02/05/2023 Reason Comments Results Abnormal labs - Dr. Guzmán's office. Reason Onset Date Comments Refill Request 08/11/2023 Reason Onset Date Comments Refill Request 10/14/2023 Reason Comments Medicare Wellness Exam Reason Comments Follow Up Reason Onset Date Comments Refill Request 12/07/2023 Reason Onset Date Comments Refill Request 01/15/2024 Reason Comments ER F/U Reason Onset Date Comments Refill Request 03/05/2024 Reason Comments Insurance Authorization Reason Comments Discussion Reason Comments 6 Month Exam Reason Comments Established Patient Dementia- no new con cerns Reason Onset Date Comments Application Development Specialist- Other 06/29/2024 Reason Onset Date Comments Results 08/19/2024 Care Teams (unrecognized sec tion and content) Retail Zone Specialist Relationship Specialty Start Date End Date Louis Isaacs DO [address] [place] [address] PCP - General Family Practice 12/02/18 Retail Zone Specialist Relationship Specialty Start Date End Date Louis Isaacs DO [address] [place] [address] PCP - General Family Practice 12/02/18 Retail Zone Specialist Relationship Specialty Start Date End Date Louis Isaacs DO [address] [place] [address] PCP - General Family Practice 12/02/18 Retail Zone Specialist Relationship Specialty Start Date End Date Louis Isaacs DO [address] [place] [address] PCP - General Family Practice 12/02/18 Retail Zone Specialist Relationship Specialty Start Date End Date Louis Isaacs DO [address] [place] [address] PCP - General Family Medicine 12/02/18 Retail Zone Specialist Relationship Specialty Start Date End Date Bairon Torres MD [address] [place] [address] PCP - General Family Medicine 01/04/22 Retail Zone Specialist Relationship Specialty Start Date End Date Bairon Torres MD [address] [place] [address] PCP - General Family Medicine 01/04/22 Retail Zone Specialist Relationship Specialty Start Date End Date Bairon Torres MD [address] [place] [address] PCP - General Family Medicine 01/04/22 Retail Zone Specialist Relationship Specialty Start Date End Date Bairon Torres MD [address] [place] [address] PCP - General Family Medicine 01/04/22 Retail Zone Specialist Relationship Specialty Start Date End Date Bairon Torres MD [address] [place] [address] PCP - General Family Medicine 01/04/22 Team Status: Active Member Role Status Dates Dr. Louis Isaacs DO Family Provider Active Dr. Bairon Torres MD Primary Care Provider Active Team Status: Active Member Role Status Dates Dr. Bairon Torres MD Primary Care Provider Active Dr. Katerina Powell MD Emergency Provider Active Dr. Eduardo Espinal MD Admit Provider, A ttending Provider, Other Provider Active Team Status: Active Member Role Status Dates Dr. Bairon Torres MD Primary Care Provider Active Dr. Katerina Powell MD Emergency Provider Active Dr. Eduardo Espinal MD Admit Provider, Other Provider Active Dr. Valdemar Sterling DO Attending Provider Active Team Status: Active Member Role Status Dates Dr. Bairon Torres MD Primary Care Provider Active Dr. Valdemar Sterling DO Attending Provider Active Team Status: Active Member Role Status Dates Dr. Bairon Torres MD Primary Care Provider Active Dr. Katerina Powell MD Emergency Provider Active Dr. Eduardo Espinal MD Admit Provider, Other Provider Active Dr. Avni Jopperi , DO Other Provider Active Dr. Sameera Jones , DO Attending Provider, Other Provide r Active Team Status: Inactive Member Role Status Dates Dr. Bairon Torres MD Primary Care Provider Active Dr. Sarksi Dubon MD Attending Provider, Emergency Provi darren Active Team Status: Inactive Member Role Status Dates Dr. Bairon Torres MD Primary Care Provider Active Dr. Josh Garrett MD Attending Provider, Emergency Provider Active Team Status: Inactive Member Role Status Dates Dr. Bairon Torres MD Primary Care Provider Active Dr. Katerina Powell MD Emergency Provider Active Dr. Eduardo Espinal MD Admit Provider, Other Provider Active Dr. Avni Garcia , Other Provider Active Dr. Sameera Jones , DO Attending Provider Active Retail Zone Specialist Relationship Specialty Start Date End Date Bairon Torres MD [address] [place] [address] PCP - General Family Medicine 01/04/22 Team Status: Active Member Role Status Dates Dr. Bairon Torres MD Primary Care Provider Active Dr. Jia Cleary MD Attending Provider Active Dr. Eduardo Espinal MD Referring Provider Active Team Status: Inactive Member Role Status Dates Dr. Bairon Torres MD Primary Care Provider Active Dr. Samara Guzmán MD Attending Provider, Referring Provider Active Retail Zone Specialist Relationship Specialty Start Date End Date Bairon Torres MD [address] [place] [address] PCP - General Family Medicine 01/04/22 Retail Zone Specialist Relationship Specialty Start Date End Date Bairon Torres MD [address] [place] [address] PCP - General Family Medicine 01/04/22 Retail Zone Specialist Relationship Specialty Start Date End Date Bairon Torres MD [address] [place] [address] PCP - General Family Medicine 01/04/22 Retail Zone Specialist Relationship Specialty Start Date End Date Bairon Torres MD [address] [place] [address] PCP - General Family Medicine 01/04/22 Retail Zone Specialist Relationship Specialty Start Date End Date Bairon Torres MD [address] [place] [address] PCP - General Family Medicine 01/04/22 Retail Zone Specialist Relationship Specialty Start Date End Date Bairon Torres MD [address] [place] [address] PCP - General Family Medicine 01/04/22 Retail Zone Specialist Relationship Specialty Start Date End Date Bairon Torres MD [address] [place] [address] PCP - General Family Medicine 01/04/22 Team Status: Active Member Role Status Dates Dr. Bairon Torres MD Primary Care Provider, Referri ng Provider Active Dr. Jesus Manuel Coronado MD Attending Provider Active Team Status: Inactive Member Role Status Dates Dr. Bairon Torres MD Primary Care Pro vider, Attending Provider, Referring Provider Active Retail Zone Specialist Relationship Specialty Start Date End Date Bairon Torres MD [address] [place] [address] PCP - General Family Medicine 01/04/22 Retail Zone Specialist Relationship Specialty Start Date End Date Bairon Torres MD [address] [place] [address] PCP - General Family Medicine 01/04/22 Retail Zone Specialist Relationship Specialty Start Date End Date Bairon Torres MD [address] [place] [address] PCP - General Family Medicine 01/04/22 Retail Zone Specialist Relationship Specialty Start Date End Date Bairon Torres MD [address] [place] [address] PCP - General Family Medicine 01/04/22 Retail Zone Specialist Relationship Specialty Start Date End Date Bairon Torres MD [address] [place] [address] PCP - General Family Medicine 01/04/22 Retail Zone Specialist Relationship Specialty Start Date End Date Bairon Torres MD [address] [place] [address] PCP - General Family Medicine 01/04/22 Retail Zone Specialist Relationship Specialty Start Date End Date Bairon Torres MD [address] [place] [address] PCP - General Family Medicine 01/04/22 Retail Zone Specialist Relationship Specialty Start Date End Date Bairon Torres MD [address] [place] [address] PCP - General Family Medicine 01/04/22 Retail Zone Specialist Relationship Specialty Start Date End Date Bairon Torres MD [address] [place] [address] PCP - General Family Medicine 01/04/22 Retail Zone Specialist Relationship Specialty Start Date End Date Bairon Torres MD [address] [place] [address] PCP - General Family Medicine 01/04/22 Retail Zone Specialist Relationship Specialty Start Date End Date Bairon Torres MD [address] [place] [address] PCP - General Family Medicine 01/04/22 Fauzia Wagner, TRAIN MASTER.GLASS FURNACE TENDER [address] [place] [address] 911 Dispatcher Family Medicine 02/07/24 Carolyn Asher PA-C [address] [place] [address] 911 Dispatcher Family Medicine 02/07/24 Retail Zone Specialist Relationship Specialty Start Date End Date Bairon Torres MD [address] [place] [address] PCP - General Family Medicine 01/04/22 Fauzia Wagner APRN.GLASS FURNACE TENDER [address] [place] [address] 911 Dispatcher Family Medicine 02/07/24 Carolyn Asher PA-C [address] [place] [address] 911 Dispatcher Family Medicine 02/07/24 Retail Zone Specialist Relationship Specialty Start Date End Date Bairon Torres MD [address] [place] [address] PCP - General Family Medicine 01/04/22 Fauzia Wagner, JORGE.GLASS FURNACE TENDER [address] [place] [address] 911 Dispatcher Family Medicine 02/07/24 Carolyn Asher PA-C [address] [place] [address] 911 Dispatcher Family Medicine 02/07/24 Retail Zone Specialist Relationship Specialty Start Date End Date Bairon Torres MD [address] [place] [address] PCP - General Family Medicine 01/04/22 Fauzia Wagner APRN.GLASS FURNACE TENDER [address] [place] [address] 911 Dispatcher Family Medicine 02/07/24 Carolyn Asher PA-C [address] [place] [address] [facility] Zone Specialist Relationship Specialty [place] [address] [place] [id number] PCP - General Family Medicine 01/04/22 Fauzia Wagner APRN.GLASS FURNACE TENDER [address] [place] [address] 911 Dispatcher Family Medicine 02/07/24 Carolyn Asher PA-C [address] [place] [address] [facility] 02/07/24 Retail Zone Specialist Relationship Specialty Start Date End Date Bairon Torres MD [address] [place] [address] PCP - General Family Medicine 06/07/24 Fauzia Wagner, TRAIN MASTER.GLASS FURNACE TENDER [address] [place] [address] 911 Dispatcher Family Medicine 02/07/24 Carolyn Asher PA-C [address] [place] [address] 911 Dispatcher Family Medicine 02/07/24 Retail Zone Specialist Relationship Specialty Start Date End Date Bairon Torres MD [address] [place] [address] PCP - General Family Medicine 06/07/24 Fauzia Wagner APRN.GLASS FURNACE TENDER [facility] [place] [address] 911 Dispatcher Family Medicine 02/07/24 Carolyn Asher PA-C [facility] [place] [address] 911 Dispatcher Family Medicine 02/07/24 Retail Zone Specialist Relationship Specialty Start Date End Date Bairon Torres MD [address] [place] [address] PCP - General Family Medicine 06/07/24 Fauzia Wagner APRN.GLASS FURNACE TENDER [address] [place] [address] 911 Dispatcher Family Medicine 02/07/24 Carolyn Asher PA-C [facility] [place] [address] 911 Dispatcher Family Medicine 02/07/24 Retail Zone Specialist Relationship Specialty Start Date End Date Bairon Torres MD [address] [place] [address] PCP - General Family Medicine 06/07/24 Fauzia Wagner APRN.GLASS FURNACE TENDER [facility] [place] [address] 911 Dispatcher Family Medicine 08/02/24 Carolyn Asher PA-C [address] [place] [address] 911 Dispatcher Family Medicine 08/02/24 Retail Zone Specialist Relationship Specialty Start Date End Date Bairon Torres MD [address] [place] [address] PCP - General Family Medicine 06/07/24 Fauzia Wagner, JORGE.GLASS FURNACE TENDER [address] [place] [address] 911 Dispatcher Family Medicine 08/02/24 Carolyn Asher PA-C [address] [place] [address] 911 Dispatcher Family Medicine 08/02/24 Retail Zone Specialist Relationship Specialty Start Date End Date Bairon Torres MD [address] [place] [address] PCP - General Family Medicine 06/07/24 Fauzia Wagner, TRAIN MASTER.GLASS FURNACE TENDER [address] [place] [address] 911 Dispatcher Family Medicine 08/02/24 Carolyn Asher PA-C [address] [place] [address] 911 Dispatcher Family Medicine 08/02/24 Retail Zone Specialist Relationship Specialty Start Date End Date Bairon Torres MD [address] [place] [address] PCP - General Family Medicine 06/07/24 Fauzia Wagner, TRAIN MASTER.GLASS FURNACE TENDER [address] [place] [address] 911 Dispatcher Family Medicine 08/02/24 Carolyn Asher PA-C [address] [place] [address] 911 Dispatcher Family Medicine 08/02/24 Goals (unrecognized section and content) Goals may be documented in a n alternate sectionGoals may be documented in an alternate sectionGoals may be documented in an alternate sectionGoals may be documented in an alternate sectionGoals may be documented in an alternate section FOR RECORDS PERTAINING TO PATIENTS WHO ARE OR HAVE BEEN ENROLLED IN A CHEMICAL DEPENDENCY/SUBSTANCEABUSE PROGRAM, SOME INFORMATION MAY BE OMITTED. This clinical summary was aggregated from multiple sources. Caution should be exercised in using it in the provision of clinical care. This summary normalizes information from multiple sources, and as a consequence, information in this document may materially change the coding, format and clinical context of patient data. In addition, data may be omitted in some cases. CLINICAL DECISIONS SHOULD BE BASED ON THE PRIMARY CLINICAL RECORDS. [employer] provides no warranty or guarantee of the accuracy or completeness of information in this document.
--- NOTE | 2024-10-10 19:59 | EKG12_ITS ---
Test Reason : DYSRHYTHMIA Blood Pressure : */* mmHG Vent. Rate : 79 BPM Atrial Rate : 79 BPM P-R Int : 112 ms QRS Dur : 124 ms QT Int : 416 ms P-R-T Axes : 55 37 65 degrees QTcB Int : 477 ms Normal sinus rhythm Right bundle branch block Abnormal ECG Confirmed by YARELY FRANCO, ADALGISA ([id number]), graphics editor LALO IRVING ([id number]) on 10/11/2024 1:15:58 PM Referred By: Confirmed By: ADALGISA PRITCHETT MD
--- NOTE | 2024-10-10 20:18 | RAD_ITS ---
PROCEDURE: CHEST 1 VIEW (PORTABLE) 10/10/2024 REASON FOR EXAM: COUGH TECHNIQUE: Frontal view of the chest. COMPARISON: 04/24/2019 FINDINGS: Hardware: None. Heart: The heart size is normal. Lungs: The lungs are clear. Bones: The bones are unremarkable. Other: None. RAD/Chest 1 View (Portable) IMPRESSION: No Acute Findings. [facility]
[2024-10-10 20:26] LABS: Hematocrit 37.6 % (37-47); Hemoglobin 12.7 g/dL (12.0-15.0); Immature Granulocytes Count 0.020 X10^3/uL (0.0-0.0); Mean Corp Hgb Conc 33.8 g/dL (32-36); Mean Corpuscular Volume 96.2 fL (81-99); Mean Platelet Vol. 9.5 fl (6.2-12.0); NRBC Flagged by Analyzer 0 % (0-5); Platelet Count 230 K/mm3 (150-450); RBC Distribution Width CV 12.8 % (11.6-14.6); RBC Distribution Width SD 44.9 fl (35.1-43.9); Red Blood Count 3.91 M/mm3 (4.2-5.4); White Blood Count 5.2 K/mm3 (4.4-11.0)
[2024-10-10 20:41] LABS: Partial Thromboplast Time 25.4 Seconds (24.1-36.2); Prothrombin Time (Protime)PT. 14.3 SECONDS (11.7-14.9)
[2024-10-10 20:56] LABS: Mucous, Urine 0 SEEN /hpf (<or=2+); Squamous Epithelial Cells - UA 0 SEEN /hpf (5-10)
[2024-10-10 20:58] LABS: Anion Gap 13 (5-15); BUN 20 mg/dL (4-19); BUN/Creat Ratio 23.1 RATIO (10-20); Calcium,Total 9.3 mg/dL (7.6-11.0); Carbon Dioxide 24.9 mmol/L (21.0-32.0); Chloride 102 mmol/L (98-108); Estimated Creatinine Clearance 33.23 ml/min (50-250); Glucose 179 mg/dL (70-99); Potassium 4.0 mmol/L (3.3-5.1)
--- NOTE | 2024-10-10 21:08 | PCM.HP.STD ---
HPI - General General Date of Admission: 10/10/24 Date of Service: 10/10/24 Chief Complaint: Fall, R hip and thigh pain. HPI Narrative The patient is an 89 y/o F w/ PMHx: CKD stage III per previous GFR trending, IBS, Hx VTE, HTN, HLD, GERD s/p Warren, Esophageal dysphagia, Rheumatoid arthritis, Pancreatic exocrine insufficiency, Alzheimer's dementia with unclear extent with unclear behavioral disturbance history with also potentially related anorexia who presents to the [facility] ED on 10/10/2024 with history of mechanical fall noted that she was walking and slipped landing on her right side with no loss of consciousness or head trauma but had onset of significant right thigh pain and a heavy sensation to the right leg with discomfort severely worsened with any movement with no associated paresthesias but given ongoing discomfort prompted ED evaluation. Patient in the ED notes her pain currently 6-7 out of 10 in severity. Family notes that over the last several months she has been more agitated intermittently and they had been planning to follow-up with neurology to have patient placed on additional medications. Workup in the ED included T98.1, heart rate 77, BP 160/83, respiratory rate 16, 99% on room air with most recent repeat vitals heart rate 82, BP 140/84, respiratory rate 20, 96% on room air, CBC with WC 5.2, he 112.7, platelet 230 without marked shift, BMP with BUN/creatinine 20/0.87, GFR 65, glucose 179, plain film of the right femur with an acute right femoral fracture and probably additional fracture of the distal right femur, plain film of the right hip and pelvis with similarly noted acute fracture of the right femur through the intertrochanteric line, chest x-ray no acute cardiopulmonary findings, EKG with SR with RBBB without acute evidence of ischemia. In the ED patient ministered morphine 4 mg IV x 2 as well as Zofran 4 mg IV x 1. ED discussed case with Orthopedic surgery Dr. Mcqueen. [facility] Medical History Rheumatoid arthritis GERD (gastroesophageal reflux disease) History of DVT (deep vein thrombosis) Hyperlipidemia Alzheimer's dementia Chronic kidney disease (CKD), stage III (moderate) Irritable bowel Hiatal hernia Wears glasses Wears dentures History of leukemia Easy bruising Non-smoker Family history of malignant neoplasm of colon in father Esophageal dysphagia Home Medications ?Medication ?Instructions ?Recorded ?Last Taken ?Type hydroxychloroquine 200 mg tablet 200 mg PO DAILYCM arthritis 04/24/19 Unknown History biotin 10,000 mcg capsule 10,000 mcg PO DAILY hair growth 04/24/22 Unknown History mtdidampgqtm-bvcszkpr-naxfgd tablet 1 tab PO DAILY 04/24/22 Unknown History rivastigmine tartrate 1.5 mg 3 mg PO QHS memory 04/24/22 Unknown History capsule hwugke-doztmwwb-fjapkcz 1 cap PO TID #90 caps 02/12/24 Unknown Rx 40,000-126,000-168,000 unit capsule, delay rel (Zenpep) megestrol 40 mg tablet 40 mg PO TID #90 tabs 05/24/24 Unknown Rx rivastigmine tartrate 1.5 mg 1.5 mg PO DAILY 10/10/24 Unknown History capsule Allergy/AdvReac Type Severity Reaction Status Date / Time aspirin Allergy Severe Hives Verified 10/10/24 17:10 ibuprofen Allergy Hives Verified 10/10/24 17:10 donepezil AdvReac Nausea Verified 10/10/24 17:10 Penicillins AdvReac I PASS Verified 10/10/24 17:10 OUT Family History Mother Alzheimer's dementia Diabetes Father CVA (cerebral vascular accident) Colon cancer Surgical History Hx of colonoscopy Hx of appendectomy Hx of toe surgery Hx of arthroscopy of shoulder Hx of dilation and curettage Hx of bilateral cataract extraction Hx of arthroscopy of right knee Hx of tonsillectomy Hx of abdominal hysterectomy Status post laparoscopic Warren fundoplication Social History household members: family housing: assisted living facility Smoking Status: Never smoker alcohol intake: never substance use type: does not use ROS Review of Systems ROS Unobtainable: due to mental condition Vital Signs Vital Signs Vital Signs: 10/10/24 16:59 10/10/24 17:05 10/10/24 18:59 Temperature 98.1 F Temperature Source Oral Pulse Rate 77 85 Respiratory Rate 16 24 H Respiratory Effort Normal Respiratory Depth Normal Respiratory Pattern Normal Blood Pressure 160/83 H 149/66 H Blood Pressure Mean 108 93 Pulse Ox 99 100 99 Oxygen Delivery Method Room Air Room Air Room Air 10/10/24 20:00 Temperature Temperature Source Pulse Rate 82 Respiratory Rate 20 H Respiratory Effort Respiratory Depth Respiratory Pattern Blood Pressure 140/84 H Blood Pressure Mean 102 Pulse Ox 96 Oxygen Delivery Method Room Air Weight Weight: 101 lb 13.657 oz Body Mass Index (BMI) 18.6 Physical Exam Narrative Physical Examination: General: Awake, alert but patient with significant underlying dementia, nonsensical answers, mildly agitated but able to calm, not really following exams well, family notes she has been more agitated over the last several months, laying in the ED bed, notes pain 6-7 out of 10 in severity to the right hip and thigh. Skin: Normal color, normal turgor, no icterus, no cyanosis except occasional stage ecchymoses, abrasion HEENT: AT/NC, EOMI although mildly difficult assessment, PERRLA, mildly dry MM, no carotid bruits or JVD noted. Lungs: Diminished, greater bases, mildly increased respiratory rate but no distress, no rales, ronchi or wheezing. Heart: Regular rate and rhythm; no gallop, rub audible. Abdomen: Soft, thin habitus, NTTP, ND, mildly hyperactive BS, no appreciated HSM. Extremities: No cyanosis, no clubbing, no significant distal edema, status post fall with right hip/femur fracture, distal pulses intact Neurological: Awake, alert but patient with significant underlying dementia, nonsensical answers, mildly agitated but able to calm, not really following exams well, family notes she has been more agitated over the last several months, laying in the ED bed, cognitive function suspect near baseline intact with underlying significant impairment with underlying Alzheimer's dementia; pupils equally reactive to light and accommodation, cranial nerves grossly normal, moving all 4 extremities except expected limitation right lower extremity given fall with fracture, strength accordingly severely globally decreased. Psychiatric: Affect appears mildly agitated, no acute evidence of depressive or anxiety feelings but does have underlying history. Results Lab / Micro Data 10/10/24 16:47 10/10/24 16:47 Labs: Laboratory Results - last 24 hr 10/10/24 16:47: WBC 5.2, RBC 3.91 L, Hgb 12.7, Hct 37.6, MCV 96.2, MCH 32.5 H, MCHC 33.8, RDW Std Deviation 44.9 H, RDW Coeff of Katiana 12.8, Plt Count 230, MPV 9.5, Immature Gran % (Auto) 0.400, Neut % (Auto) 61.1, Lymph % (Auto) 24.3, [place] % (Auto) 10.2 H, Eos % (Auto) 3.4, Baso % (Auto) 0.6, Absolute Neuts (auto) 3.2, Absolute Lymphs (auto) 1.27, Nucleated RBC % 0, Sodium 140, Potassium 4.0, Chloride 102, Carbon Dioxide 24.9, Anion Gap 13, BUN 20 H, Creatinine 0.87, Estim Creat Clear Calc 33.23 L, Est GFR (MDRD) Non-Af 65, BUN/Creatinine Ratio 23.1 H, Glucose 179 H, Calcium 9.3 10/10/24 20:25: PT 14.3, INR 1.1, APTT 25.4 Imaging Radiology Impression Femur X-Ray 10/10/24 17:40 IMPRESSION: Acute right femoral fracture. Probable additional fracture of the right distal femur, however visualization is limited by patient positioning. Reading Location: [facility] Pelvis X-Ray 10/10/24 17:40 IMPRESSION: Acute fracture of the right femur through the intertrochanteric line. Reading Location: [facility] Assessment & Plan Assessment/Plan (1) Closed intertrochanteric fracture of right hip: PLAN: Plan The patient is an 89 y/o F w/ PMHx: CKD stage III per previous GFR trending, IBS, Hx VTE, HTN, HLD, GERD s/p Warren, Esophageal dysphagia, Rheumatoid arthritis, Pancreatic exocrine insufficiency, Alzheimer's dementia with unclear extent with unclear behavioral disturbance history with also potentially related anorexia who presents to the [facility] ED on 10/10/2024 with history of mechanical fall noted that she was walking and slipped landing on her right side with no loss of consciousness or head trauma but had onset of significant right thigh pain and a heavy sensation to the right leg with discomfort severely worsened with any movement with no associated paresthesias but given ongoing discomfort prompted ED evaluation. #1. General debility, right hip and thigh pain status post mechanical fall with an acute right femoral fracture and possibly distal right femur fracture: Orthopedic surgery consulted from ED. Will admit to [facility], maintain NPO after midnight, continue gentle IVFs, abraham placement, monitor I/Os, frequent positioning, fall precautions, as needed pain, anti-emetic regimen. PT/OT following operative intervention. CM consulted for discharge planning. Patient will need to be transitioned [facility] the critical [facility] to the alf facility section as currently she is in assisted living only per discussion with family. Per NSQIP patient certainly moderate risk however given DNRCC status discussed at length with the family and preference to proceed with operative intervention with no further evaluations in order to better control patient comfort. EKG was obtained with sinus rhythm with right bundle branch block with no evidence of ischemia. #2. Anxiety and depression: Will continue patient home mirtazapine regimen, encourage continued follow-up outpatient as previously arranged. #3. Alzheimer's dementia, unclear extent with unclear behavioral disturbance history: Will continue patient home rivastigmine regimen, potentially also related with anorexia as patient is also on dronabinol in addition to megestrol but clarifying, PT/OT/case management consulted for discharge planning. #4. Rheumatoid arthritis: Patient on chronic low-dose steroids and hydroxychloroquine, will continue unless preference to temporarily hold or alter per surgery. #5. Chronic exocrine pancreatic insufficiency: Will continue patient home Creon regimen, continue to follow with GI as previously arranged. #6. Hyperlipidemia: Per current list on a regimen, defer to outpatient. #7. GERD with history of GI bleed secondary to ischemic colitis, potentially secondary to constipation/decreased blood pressure per most recent GI note with history of Warren, chart reported history esophageal dysphagia: Per current list does not appear to be on regimen, clarifying, will have as needed Mylanta. Continue to follow with GI as previously arranged. From review of patient diet at skilled facility it is normal liquid/food texture. #8. History of VTE: Per current list not on any chronic anticoagulant therapy, will maintain SCDs as noted given planned likely operative intervention. #9. Chronic Kidney Disease Stage III per previous GFR trending, unclear subtype: Admission BUN/Cr 20/0.7, GFR 65, currently GFR 65 however previous trending consistent with stage III baseline renal function 0.8-1.1 repeat BMP in AM. #10. DVT prophylaxis: SCDs pending surgery evaluation for possible intervention. #11. CODE status: Patient BELLO is her daughter who is present and living will is currently in place. Discussed CODE status at length including difference between FULL code, DNR-CCA and DNR-CC status. Following discussions about the differences in these status, requested DNR status with thorough discussion undertaken regarding whether or not patient was DNR CCA with no intubation versus DNR CC and eventually decision for comfort care status. Advanced Care Planning Face to Face Time: 16 minutes. Charges/Coding Visit Charges Inpatient E&M: 00950 Init Hosp L3 Procedures Hospitalists Procedures: 35613 Advncd Care Plan 30 Min
[2024-10-10 21:10] LABS: Color, Urine Yellow (Yellow); Glucose, Dipstick Normal (Normal); Ketone-Dipstick Negative (Negative); Leukocyte Esterase-Dipstick Negative /ul (Negative); Nitrite-Dipstick Negative (Negative); Occult Blood-Urine 10 /ul (Negative); Protein-Dipstick 15 mg/dl (Negative); Specific Gravity, Urine 1.015 (1.002-1.030); Urine Bilirubin Dipstick Negative (Negative)
[2024-10-10 21:36] LABS: Fine Granular Cast- Urine 0-5 SEEN /lpf (0-5); Red Blood Cells-Urine 0-5 SEEN /hpf (0-5)
[2024-10-10 21:37] LABS: Calcium Oxalate Crystals Ur RARE /hpf (<or=2+)
--- OUTSIDE RECORDS SUMMARY | 2024-10-10 21:45 | XMS RPT_ITS | CCD ---
Author Organization [facility] Care Team Providers Care Youth Director Name Role Phone PHIAYANNA ANGEL Jaye (PRINT PROJECT MANAGER) Unavailable Unavai Louis Ruvalcaba DO Primary Care Provider Louis Isaacs DO Primary Care Provider Bairon Torres MD Primary Care Provider Dr. Bairon Torres Primary Care Provider Dr. Katerina Powell Emergency Provider [phone] Eduardo Espinal Admit Provider 1([facility])[phone] Eduardo Espinal Attending Provider Dr. Eduardo Espinal Other Provider Dr. Valdemar Sterling Attending Provider Dr. Avni Garcia Other Provider Dr. Sameera Jones Attending Provider Dr. Sameera Jones Other Provider Dr. Bairon Torres Primary Care Provider Dr. Katerina Powell Emergency Provider [phone] Eduardo Espinal Admit Provider Dr. Eduardo Espinal Attending Provider Dr. Eduardo Espinal Other Provider Dr. Valdemar Sterilng Attending Provider Dr. Jia Cleary Attending Provider Dr. Eduardo Espinal Referring Provider 1([facility])[phone] Dr. Avni Garcia Other Provider Dr. Sameera Jones Attending Provider Dr. Sameera Jones Other Provider Dr. Bairon Torres Primary Care Provider Dr. Bairon Torres Referring Provider Dr. Jesus Manuel Coronado Attending Provider Bairon Torres MD Primary Care Provider [phone] Bairon Torres MD Primary Care Provider Markus SENIOR CLINICAL PROJECT MANAGER.NANDA, Fauzia Unavailable Carolyn Asher PA-C Unavailable Valdemar Sterling Attending Unavailable Brian, Bairon Primary Care Unavailable Bairon Torres Referring Unavailable Brian, Bairon Primary Care Unavailable Ollie Olivarez Attending Unavailable Bairon Torres MD Primary Care Provider Markus SENIOR CLINICAL PROJECT MANAGER.PRINT PROJECT MANAGER, Fauzia Unavailable Carolyn Asher PA-C Unavailable CAROLYN ASHER Attending Unavailable BRIAN, BAIRON A Primary Care Unavailable FAUZIA WAGNER Attending Unavailable BRIAN, BAIRON A Primary Care Unavailable BRIAN, BAIRON A Primary Care Unavailable HUE TORRES Attending Unavailable BRIAN, BAIRON A Primary Care [...] ibuprofen; Translations: [IBUPROFEN] Drug Allergy 5 Hives [facility] Other [place] Repository (20 sources) Penicillins; Translations: [PENICILLINS] Propensity to adverse reactions to drug (disorder) 5 Other: See Comments [facility] Repository (20 sources) salicylic acid; Translations: [SALICYLATES] Drug Allergy 5 Other: See Comments [facility] Repository (7 sources) Aspirin Drug Allergy 2 Hives [facility] (20 sources) donepezil; Translations: [DONEPEZIL] Drug Allergy 3 Other: See Comments [facility] Work Phone: (1 source) Aspirin Drug Allergy 4 [facility] Repository (1 source) donepezil Drug Allergy 4 [facility] Repository Medications Current Medications Medication Drug Class(es) Dates Sig (Normalized) Sig (Original) amylase 862131 unt / lipase 36081 unt / protease 969647 unt delayed release oral capsule (20 sources) take 69116-705494 capsules by mouth three times daily at mealtime jomcsc-uqcnjsfl-u mylase (ZENPEP) 40,000-126,000- 168,000 unit delayed release [...] oral capsule (20 sources) Start: 04-24-2022 take 21183 ug by mouth once daily Biotin Active 96160 MCG PO DAILY April 24, 2022 12:00am Start: 06-26-2020 take 2500 ug by mouth once sheila ly Biotin Active 2500 MCG PO DAILY June 25, 2020 11:00pm take 88774 ug by mouth once suzan y BIOTIN ORAL Take 10,000 mcg by mouth once daily. Active take 73821 ug by mouth once suzan y BIOTIN [...] daily. Per rheumatology Take 1 tablet by [facility] once daily. Per rheumatology Dqptcg-Rrobagxo-S mylase (Zenpep) 40,000-126,000- 168,000 unit capsule,delayed release(DR/EC) (3 sources) Start: 04-25-2022 take 05194-258603 capsules by mouth three times daily at mealtime Kmofib-Ujwyrzdu-Txm lase (Zenpep) 40,000-126,000- 168,000 unit capsule,delayed release(DR/EC) Active 1 CAP PO THREE TIMES A DAY April 25, 2022 1:00am administer with meals and/or snacks Start: 04-25-2022 take 72243-844496 ca psules by mouth three times daily at mealtime Ncjusi-Jrdjcmzf-Exazkud (Zenpep) 40,000-126,000- 168,000 unit capsule,delayed release(DR/EC) Active [...] TABLET PO DAILY September 30, 2013 12:00am Drrpxbvhpzhj-Tnlzmahu-Hhddid (3 sources) Start: 04-24-2022 take 1 tablet by mouth once daily Oftwewskskgd-Ffxakvyp-Qbcbhb Active 1 TABLET PO DAILY April 24, 2022 1:00am Start: 04-24-2022 take 1 tablet by addison th once daily Zhpyuoghdojl-Bvqntasm-Uhbdou Active 1 TA BLET PO DAILY April [...] (20 sources) Patient encounter status; Translations: [Other correction (current) drug therapy] Onset: 10-21-2023 10-21-2023 Episodic Other aftercare (3 sources) Other correction (current) drug therapy; Translations: [Encounter for long-term [...] 01-14-2012 Episodic Other skin disorders (20 sources) [place] - lesion ; Translations: [Corns and callosities] [...] Negative for C. difficile toxin by PCR [facility] Comment on above: Order Comment: Speci men Type: STOOL SPECIMENOrdering Facility: [facility] Address: [address] [place] [address] Performed By: #### 7 9390-1, FECWBC, 22922-2, 85064-1 ####[facility] LABCLIA [id number] [place] [address] [place] FAT, FECAL QUALon 08-15-2024 FAT, FECAL - NEUTRAL Normal Normal Normal [facility] Comment on above: Order Comment: Speci men Type: STOOL SPECIMENOrdering Facility: [facility] Address: [address] [place] [address] Performed By: #### F FATQL ####[facility] [id number] [place] [address] FAT, FECAL - SPLIT Normal Normal Normal [facility] Comment on above: Order Comment: Speci men Type: STOOL SPECIMENOrdering Facility: [facility] Address: [address] [place] [address] Result Comment: INTE RPRETIVE INFORMATION: Fecal Fat Qualitative Neutral fats include the monoglycerides, diglycerides, and triglycerides while split fats are the free fatty acids that are liberated from them. Impaired synthesis or secretion of pancreatic enzymes or bile may cause an increase in neutral fats while an increase in split fats suggests impaired absorption of nutrients. Performed By: [employer] [address] [place] [address] Plastic Sewer: Charly Kingston MD, PhD CLIA Number: [id number] Performed By: #### F FATQL ####[facility] LABORATORIESCLIA [id number] [place] [address] FECAL LACTOFERRIN/LEUKOCYTES on 08-15-2024 Lactoferrin IA Ql (Stl) Negative for lactoferrin, which may indicate the absence of fecal white blood cells Normal Negative [facility] Comment on above: Order Comment: Speci men Type: STOOL SPECIMENOrdering Facility: [facility] Address: [address] [place] [address] Performed By: #### 7 9390-1, FECWBC, 76788-0, 24281-0 ####[facility] LABCLIA [id number] [address] [place] G lamblia+Cryptosp Ag Stl Ql IAon 08-15-2024 G. lamblia+Cryptosporid ium sp Ag IA Ql (Stl) CRYPTOSPORIDIUM ANTIGEN BY EIA: Negative for Cryptosporidium by EIA. GIARDIA ANTIGEN BY EIA: Negative for Giardia lamblia by EIA. Normal [facility] Comment on above: Performed By: #### 7 9390-1, FECWBC, 96637-1, 00229-6 ####[facility] LABCLIA [id number] [address] [address] [place] Gastrointestinal pathogens i dentified JONI+probe Nom (Stl)on 08-15-2024 Campylobacter sp DNA JONI+probe Nom (Unsp spec) Not detected Normal Not Detected [facility] Comment on above: Order Comment: Speci men Type: STOOL SPECIMENOrdering Facility: [facility] Address: [address] [place] [address] Performed By: #### 7 9390-1, FECWBC, 74939-8, 76212-3 ####[facility] LABCLIA [id number] [place] [address] [place] Salmonella sp DNA JONI+probe Ql (Unsp spec) Not detected Normal Not Detected [facility] Comment on above: Order Comment: Speci men Type: STOOL SPECIMENOrdering Facility: [facility] Address: [address] [place] [address] Performed By: #### 7 9390-1, FECWBC, 76096-5, 34777-7 ####[facility] LABIA [id number] [place] [address] [place] Shiga toxin stx gene JONI+probe Nom (Unsp spec) Not detected Normal Not Detected [facility] Comment on above: Order Comment: Speci men Type: STOOL SPECIMENOrdering Facility: [facility] Address: [address] [place] [address] Performed By: #### 7 9390-1, FECWBC, 08054-7, 73230-6 ####[facility] LABCLIA [id number] [place] [id number] [place] Shigella sp DNA JONI+probe Ql (Unsp spec) Not detected Normal Not Detected [facility] Comment on above: Order Comment: Speci men Type: STOOL SPECIMENOrdering Facility: [facility] Address: [address] [place] [address] Performed By: #### 7 9390-1, [facility], 96003-7, 03082-7 ####[facility] LABCLIA [id number] [address] STATES OF [facility] CNPNon 06-07-2024 CNPN Telephone (FAMWS) GUICHO MARTINEZ ([id number]) 1935 F Date Time Provider Department 06/07/24 BAIRON TORRES [facility] During your visit today, we recorded the following information about you: Karma Hanson, HERB 06/07/2024 6:14 PM Signed Pt is having frequent urination and is confused. She started symptoms yesterday so the nurse had called the protection manager provider who was Dr. Miles. A urinalysis was ordered. Joleen nurse from the [facility] calling with results which show blood and leukocytes. She will fax results to this nurse and will forward to Dr. Kearney provider protection manager. Results received. Dr. Torres working in office and results shown to him. Called and spoke with daughter Marimar Owen. Will send med to [facility]. Will call the [facility] back and confirm culture was ordered as well. Karma Hanson, HERB 06/07/2024 6:18 PM Signed Called and spoke with Joleen. Urine culture was not ordered. Given verbal order as directed by Dr. Torres. Instructions to get sample before antibiotic is started. Notified Joleen that Marimar will be making sure someone picks up the antibiotic from [facility] and get it in to them tonight. [...] by mouth once daily. Per rheumatology - rvwnrs-fppjwcus-veazjhl (ZENPEP) 40,000-126,000- 168,000 unit delayed release capsule [...] Encounter Status:Closed by BAIRON TORRES on 06/07/24 [facility] Bertin 05-19-2024 CNOV Office Visit (NEMOWS ) GUICHO MARTINEZ ([id number]) 1935 F Date Time Provider Department 05/19/24 4:30 PM HUE TORRES During your visit today, we recorded the following information about you: Pulse Blood pressure Weight 61/minute 150/68 41.4 kg Hue Torres PA-C 05/19/2024 5:34 PM Signed [facility] Name: Guicho Martinez [...] aggression. Sleeping well, recently moved into a [facility] called the [facility] and has been adjusting well to this [...] since she has been living at the [facility]. No new concerns today, [place] did decline from previous at 10/19 today. [...] - [facility] on the [place] side [facility]. 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 Power of Onion Topper/ planning of the patient's will Project Lifesaver: [...] dementia. Unfortunately, was unable to do a [place] due to time constraints. 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 Patient's primary concern today was her [...] has been stable but still low. Patient ediht (more content not included)... Normal [facility] Gastroenterology Visit Repor ton 05-19-2024 Gastroenterology Visit Report [facility] [address] [place] [address] OFFICE VISIT Date of Service: 05/19/24 MR#: [id number] Acct: [id number] Name: Jaye MARTINEZ Rep #: [id number] : 1935 Provider: Valdemar Sterling DO Age/Sex: 88/F Location: [facility] Status: Signed Intake Vital Signs 04/25/22 14:42 [...] mcg PO DAILY hair growth 05/19/24 History snmtnrjgappy-muqqkdol-ifsvcg tablet 1 tab PO DAILY 04/24/22 5 History rivastigmine tartrate 1.5 mg 1.5 mg PO QHS memory 04/24/2205/01 History capsule mbhtio-iilyertx-nyfrcbi 1 cap PO TID #90 caps 02/12/24 [...] ? Colonoscopy hemorrhoids; diverticulosis. No path changes *[facility] hospitalization 04.24.22-04.25.22 for management of LGIB with [...] Status: Acute (more content not included)... Normal [facility] CBC W Auto Differential pane l (Bld)on 05-08-2024 Basophils (Bld) [#/Vol] 0.04 10*3/uL Normal <0.11 [facility] Comment on above: Order Comment: Speci men Type: BLOOD SPECIMENOrdering Facility: [facility] Address: [address] [place] [address], [place] [address] Performed By: #### 5 7021-8 ####[facility] LABCLIA [id number] [place] [address] [place] Basophils/100 WBC (Bld) 0.6 % Normal [facility] Comment on above: Order Comment: Speci men Type: BLOOD SPECIMENOrdering Facility: [facility] Address: [address] [place] [address] Performed By: #### 5 7021-8 ####[facility] LABCLIA [id number] [place] [address] [place] Differential cell count method Nom (Bld) Auto Normal [facility] Comment on above: Order Comment: Speci men Type: BLOOD SPECIMENOrdering Facility: [facility] Address: [address] [place] [address] Performed By: #### 5 7021-8 ####[facility] LABCLIA [id number] [place] [address] [place] Eosinophils (Bld) [#/Vol] 0.27 10*3/uL Normal <0.46 [facility] Comment on above: Order Comment: Speci men Type: BLOOD SPECIMENOrdering Facility: [facility] Address: [address] [place] [address] Performed By: #### 5 7021-8 ####[facility] LABCLIA [id number] [place] [address] [place] Eosinophils/100 WBC (Bld) 4.1 % Normal [facility] Comment on above: Order Comment: Speci men Type: BLOOD SPECIMENOrdering Facility: [facility] Address: [address] [place] [address] Performed By: #### 5 7021-8 ####[facility] LABCLIA [id number] [place] [address] [place] Erythrocyte distribution width (RBC) [Ratio] 12.6 % Normal 11.5-15.0 [facility] Comment on above: Order Comment: Speci men Type: BLOOD SPECIMENOrdering Facility: [facility] Address: [address] [place] [address] Performed By: #### 5 7021-8 ####[facility] LABCLIA [id number] [address] Hematocrit (Bld) [Volume fraction] 41.3 % Normal 36.0-46.0 [facility] Comment on above: Order Comment: Speci men Type: BLOOD SPECIMENOrdering Facility: [facility] Address: [address] [place] [address] Performed By: #### 5 7021-8 ####[facility] LABIA [id number] [place] [address] [place] Hemoglobin (Bld) [Mass/Vol] 13.4 g/dL Normal 11.5-15.5 [facility] Comment on above: Order Comment: Speci men Type: BLOOD SPECIMENOrdering Facility: [facility] Address: [address] [place] [address] Performed By: #### 5 7021-8 ####[facility] LABIA [id number] [address] [place] Immature granulocytes (Bld) [#/Vol] 10*3/uL Normal <0.10 [facility] Comment on above: Order Comment: Speci men Type: BLOOD SPECIMENOrdering Facility: [facility] Address: [address] [place] [address] Performed By: #### 5 7021-8 ####[facility] LABCLIA [id number] [place] [id number] [place] Immature granulocytes/100 WBC (Bld) 0.2 % Normal [facility] Comment on above: Order Comment: Speci men Type: BLOOD SPECIMENOrdering Facility: [facility] Address: [address] [place] [address] Performed By: #### 5 7021-8 ####[facility] LABCLIA [id number] [address] [place] Lymphocytes (Bld) [#/Vol] 1.21 10*3/uL Normal 1.00-4.00 [facility] Comment on above: Order Comment: Speci men Type: BLOOD SPECIMENOrdering Facility: [facility] Address: [address] [place] [address] Performed By: #### 5 7021-8 ####[facility] LABCLIA [id number] [address] Lymphocytes/100 WBC (Bld) 18.2 % Normal [facility] Comment on above: Order Comment: Speci men Type: BLOOD SPECIMENOrdering Facility: [facility] Address: [address] [place] [address] Performed By: #### 5 7021-8 ####[facility] LABCLIA [id number] [address] [place] MCH (RBC) [Entitic mass] 32.0 pg Normal 26.0-34.0 [facility] Comment on above: Order Comment: Speci men Type: BLOOD SPECIMENOrdering Facility: [facility] Address: [address] [place] [address] Performed By: #### 5 7021-8 ####[facility] LABCLIA [id number] [address] [place] MCHC (RBC) [Mass/Vol] 32.4 g/dL Normal 30.5-36.0 [facility] Comment on above: Order Comment: Speci men Type: BLOOD SPECIMENOrdering Facility: [facility] Address: [address] [place] [address] Performed By: #### 5 7021-8 ####[facility] LABCLIA [id number] [address] [place] MCV (RBC) [Entitic vol] 98.6 fL Normal 80.0-100.0 [facility] Comment on above: Order Comment: Speci men Type: BLOOD SPECIMENOrdering Facility: [facility] Address: [address] [place] [address] Performed By: #### 5 7021-8 ####[facility] LABCLIA [id number] [place] [address] [place] Monocytes (Bld) [#/Vol] 0.63 10*3/uL Normal <0.87 [facility] Comment on above: Order Comment: Speci men Type: BLOOD SPECIMENOrdering Facility: [facility] Address: [address] [place] [address] Performed By: #### 5 7021-8 ####[facility] LABCLIA [id number] [facility] [place] [address] [place] Monocytes/100 WBC (Bld) 9.5 % Normal [facility] Comment on above: Order Comment: Speci men Type: BLOOD SPECIMENOrdering Facility: [facility] Address: [address] [place] [address] Performed By: #### 5 7021-8 ####[facility] LABCLIA [id number] [address], [place] [address] [place] Neutrophils (Bld) [#/Vol] 4.48 10*3/uL Normal 1.45-7.50 [facility] Comment on above: Order Comment: Speci men Type: BLOOD SPECIMENOrdering Facility: [facility] Address: [address] [place] [address] Performed By: #### 5 7021-8 ####[facility] LABCLIA [id number] [facility] [address] [place] [address] [place] Neutrophils/100 WBC (Bld) 67.4 % Normal [facility] Comment on above: Order Comment: Speci men Type: BLOOD SPECIMENOrdering Facility: [facility] Address: [address] [place] [address] Performed By: #### 5 7021-8 ####[facility] LABCLIA [id number] [address] [address] [place] Nucleated RBC (Bld) [#/Vol] 10*3/uL Normal <0.01 [facility] Comment on above: Order Comment: Speci men Type: BLOOD SPECIMENOrdering Facility: [facility] Address: [address] [place] [address] Performed By: #### 5 7021-8 ####[facility] LABCLIA [id number] [place] [address] [place] Nucleated RBC/100 WBC (Bld) [Ratio] 0.0 /100 WBC Normal [facility] Comment on above: Order Comment: Speci men Type: BLOOD SPECIMENOrdering Facility: [facility] Address: [address] [place] [address] Performed By: #### 5 7021-8 ####[facility] LABCLIA [id number] [place] [address] [place] Platelet mean volume (Bld) [Entitic vol] 9.7 fL Normal 9.0-12.7 [facility] Comment on above: Order Comment: Speci men Type: BLOOD SPECIMENOrdering Facility: [facility] Address: [address] [place] [address] Performed By: #### 5 7021-8 ####[facility] LABCLIA [id number] [place] [id number] [place] Platelets (Bld) [#/Vol] 220 10*3/uL Normal 150-400 [facility] Comment on above: Order Comment: Speci men Type: BLOOD SPECIMENOrdering Facility: [facility] Address: [address] [place] [address] Performed By: #### 5 7021-8 ####[facility] LABCLIA [id number] [place] [id number] [place] RBC (Bld) [#/Vol] 4.19 10*6/uL Normal 3.90-5.20 [facility] Comment on above: Order Comment: Speci men Type: BLOOD SPECIMENOrdering Facility: [facility] Address: [address] [place] [address] Performed By: #### 5 7021-8 ####[facility] LABCLIA [id number] [address] [place] WBC (Bld) [#/Vol] 6.64 10*3/uL Normal 3.70-11.00 [facility] Comment on above: Order Comment: Speci men Type: BLOOD SPECIMENOrdering Facility: [facility] Address: [address] [place] [address] Performed By: #### 5 7021-8 ####[facility] LABCLIA [id number] [address] [place] Comprehensive metabolic 2000 panelon 05-08-2024 Albumin [Mass/Vol] 4.1 g/dL Normal 3.9-4.9 [facility] Comment on above: Order Comment: Speci men Type: BLOOD SPECIMENOrdering Facility: [facility] Address: [address] [place] [address] Performed By: #### 2 4323-8 ####[facility] LABCLIA [id number] 97 [address] [place] ALP [Catalytic activity/Vol] 85 U/L Normal 34-123 [facility] Comment on above: Order Comment: Speci men Type: BLOOD SPECIMENOrdering Facility: [facility] Address: [address] [place] [address] Performed By: #### 2 4323-8 ####[facility] LABCLIA [id number] [place] [id number] [place] ALT [Catalytic activity/Vol] 11 U/L Normal 7-38 [facility] Comment on above: Order Comment: Speci men Type: BLOOD SPECIMENOrdering Facility: [facility] Address: [address] [place], [place] [address] Performed By: #### 2 4323-8 ####[facility] LABCLIA [id number] [facility] [address] [place] [address] [place] Anion gap [Moles/Vol] 9 mmol/L Normal 8-15 [facility] Comment on above: Order Comment: Speci men Type: BLOOD SPECIMENOrdering Facility: [facility] Address: [address] [place] [address] Performed By: #### 2 4323-8 ####[facility] LABCLIA [id number] [place] [address] [place] AST [Catalytic activity/Vol] 21 U/L Normal 13-35 [facility] Comment on above: Order Comment: Speci men Type: BLOOD SPECIMENOrdering Facility: [facility] Address: [address] [place] [address] Performed By: #### 2 4323-8 ####[facility] LABCLIA [id number] [place] [address] [place] Bilirubin [Mass/Vol] 0.4 mg/dL Normal 0.2-1.3 [facility] Comment on above: Order Comment: Speci men Type: BLOOD SPECIMENOrdering Facility: [facility] Address: [address] [place] [address] Performed By: #### 2 4323-8 ####[facility] LABCLIA [id number] [place] [id number] [place] Calcium [Mass/Vol] 9.5 mg/dL Normal 8.5-10.2 [facility] Comment on above: Order Comment: Speci men Type: BLOOD SPECIMENOrdering Facility: [facility] Address: [address] [place] [address] Performed By: #### 2 4323-8 ####[facility] LABCLIA [id number] [facility] [place] [id number] [place] Chloride [Moles/Vol] 105 mmol/L Normal 98-107 [facility] Comment on above: Order Comment: Speci men Type: BLOOD SPECIMENOrdering Facility: [facility] Address: [address] [place] [address] Performed By: #### 2 4323-8 ####[facility] LABCLIA [id number] [place] [address] [place] CO2 [Moles/Vol] 27 mmol/L Normal 22-30 [facility] Comment on above: Order Comment: Speci men Type: BLOOD SPECIMENOrdering Facility: [facility] Address: [address] [place] [address] Performed By: #### 2 4323-8 ####[facility] LABCLIA [id number] [address] [place] Creatinine [Mass/Vol] 0.95 mg/dL Normal 0.58-0.96 [facility] Comment on above: Order Comment: Speci men Type: BLOOD SPECIMENOrdering Facility: [facility] Address: [address] [place] [address] Performed By: #### 2 4323-8 ####[facility] LABIA [id number] [address] STATES OF [facility] Creatinine and Glomerular filtration rate.predicted panel (S/P/Bld) 58 mL/min/1.73m??? Low >=60 [facility] Comment on above: Order Comment: Speci men Type: BLOOD SPECIMENOrdering Facility: [facility] Address: [address] [place] [address] Result Comment: Josey mated Glomerular Filtration Rate [...] actual GFR. Performed By: #### 2 4323-8 ####[facility] LABCLIA [id number] [place] [id number] [place] Glucose [Mass/Vol] 143 mg/dL High 74-99 [facility] Comment on above: Order Comment: Sima collado Type: BLOOD SPECIMENOrdering Facility: [facility] Address: [address] [place] [address] Result Comment: The [place] Diabetes Association (ADA) provides guidance for cutoff [...] Standards of Medical Care in Diabetes 2016, [place] Diabetes Association. Diabetes Care. 2016.39(Suppl 1). Performed By: #### 2 4323-8 ####[facility] LABCLIA [id number] [address] [address] [place] Potassium [Moles/Vol] 4.3 mmol/L Normal 3.7-5.1 [facility] Comment on above: Order Comment: Sima collado Type: BLOOD SPECIMENOrdering Facility: [facility] Address: [address] [place] [address] Performed By: #### 2 4323-8 ####[facility] LABCLIA [id number] [address] [address] [place] Protein [Mass/Vol] 6.9 g/dL Normal 6.3-8.0 [facility] Comment on above: Order Comment: Sima collado Type: BLOOD SPECIMENOrdering Facility: [facility] Address: [address] [place] [address] Performed By: #### 2 4323-8 ####[facility] LABCLIA [id number] [facility] [address] [address] [place] Sodium [Moles/Vol] 141 mmol/L Normal 136-144 [facility] Comment on above: Order Comment: Speci men Type: BLOOD SPECIMENOrdering Facility: [facility] Address: [address] [place] [address] Performed By: #### 2 4323-8 ####[facility] LABCLIA [id number] [address] [place] Urea nitrogen [Mass/Vol] 19 mg/dL Normal 7-21 [facility] Comment on above: Order Comment: Speci men Type: BLOOD SPECIMENOrdering Facility: [facility] Address: [address] [place] [address] Performed By: #### 2 4323-8 ####[facility] LABCLIA [id number] [address] OF [facility] CNOVon 04-23-2024 CNOV Office Visit (FAMPWS ) JUANGUICHO ([id number]) 1935 F Date Time Provider Department 04/23/24 1:20 PM [facility] During your visit today, we recorded the [...] 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 Per rheumatology lsxzvx-gefxpkgf-efcbjrl (ZENPEP) 40,000-126,000- 168,000 unit delayed release capsule [...] 42.2 k (more content not included)... Normal [facility] Comprehensive metabolic 2000 panelon 04-17-2024 Albumin [Mass/Vol] 4.3 g/dL Normal 3.9-4.9 [facility] Comment on above: Order Comment: Speci men Type: BLOOD SPECIMENOrdering Facility: [facility] Address: [address] [place] [address] Performed By: #### 3 016-3, LIPNF, 44064-7 ####[facility] LABCLIA [id number] [place] [address] [place] ALP [Catalytic activity/Vol] 90 U/L Normal 34-123 [facility] Comment on above: Order Comment: Speci men Type: BLOOD SPECIMENOrdering Facility: [facility] Address: [address] [place] [address] Performed By: #### 3 016-3, LIPNF, 44871-3 ####[facility] LABCLIA [id number] [place] [address] [place] ALT [Catalytic activity/Vol] 16 U/L Normal 7-38 [facility] Comment on above: Order Comment: Speci men Type: BLOOD SPECIMENOrdering Facility: [facility] Address: [address] [place] [address] Performed By: #### 3 016-3, LIPNF, 06638-1 ####[facility] LABCLIA [id number] [place] [address] [place] Anion gap [Moles/Vol] 9 mmol/L Normal 8-15 [facility] Comment on above: Order Comment: Speci men Type: BLOOD SPECIMENOrdering Facility: [facility] Address: [address] [place] [address] Performed By: #### 3 016-3, LIPNF, 01508-8 ####[facility] LABCLIA [id number] [place] [address] [place] AST [Catalytic activity/Vol] 23 U/L Normal 13-35 [facility] Comment on above: Order Comment: Speci men Type: BLOOD SPECIMENOrdering Facility: [facility] Address: [address] [place] [address] Performed By: #### 3 016-3, LIPNF, 96668-2 ####[facility] LABCLIA [id number] [place] [address] [place] Bilirubin [Mass/Vol] 0.7 mg/dL Normal 0.2-1.3 [facility] Comment on above: Order Comment: Speci men Type: BLOOD SPECIMENOrdering Facility: [facility] Address: [address] [place] [address] Performed By: #### 3 016-3, LIPNF, ####[facility] LABCLIA [id number] [place] [address] [place] Calcium [Mass/Vol] 9.4 mg/dL Normal 8.5-10.2 [facility] Comment on above: Order Comment: Speci men Type: BLOOD SPECIMENOrdering Facility: [facility] Address: [address] [place] [address] Performed By: #### 3 016-3, LIPNF, ####[facility] LABCLIA [id number] [place] [address] [place] Chloride [Moles/Vol] 105 mmol/L Normal 98-107 [facility] Comment on above: Order Comment: Speci men Type: BLOOD SPECIMENOrdering Facility: [facility] Address: [address] [place] [address] Performed By: #### 3 016-3, LIPNF, ####[facility] LABCLIA [id number] [place] [address] [place] CO2 [Moles/Vol] 27 mmol/L Normal 22-30 [facility] Comment on above: Order Comment: Speci men Type: BLOOD SPECIMENOrdering Facility: [facility] Address: [address] [place] [address] Performed By: #### 3 016-3, LIPNF, 18394-0 ####[facility] LABCLIA [id number] [place] [address] [place] Creatinine [Mass/Vol] 0.95 mg/dL Normal 0.58-0.96 [facility] Comment on above: Order Comment: Speci men Type: BLOOD SPECIMENOrdering Facility: [facility] Address: [address] [place] [address] Performed By: #### 3 016-3, LIPNAGA, 16305-4 ####[facility] LABIA [id number] [place] [address] [place] Creatinine and Glomerular filtration rate.predicted panel (S/P/Bld) 58 mL/min/1.73m??? Low >=60 [facility] Comment on above: Order Comment: Sima men Type: BLOOD SPECIMENOrdering Facility: [facility] Address: [address] [place] [address] Result Comment: Josey mated Glomerular Filtration Rate [...] GFR. Performed By: #### 3 016-3, JULIO, 23425-0 ####[facility] LABIA [id number] [place] [address] [place] Glucose [Mass/Vol] 91 mg/dL Normal 74-99 [facility] Comment on above: Order Comment: Sima collado Type: BLOOD SPECIMENOrdering Facility: [facility] Address: [address] [place] [address] Result Comment: The [place] Diabetes Association (ADA) provides guidance for cutoff [...] Standards of Medical Care in Diabetes 2016, [place] Diabetes Association. Diabetes Care. 2016.39(Suppl 1). Performed By: #### 3 016-3, LIPNF, 06735-2 ####[facility] LABCLIA [id number] [place] [address] [place] Potassium [Moles/Vol] 4.2 mmol/L Normal 3.7-5.1 [facility] Comment on above: Order Comment: Speci men Type: BLOOD SPECIMENOrdering Facility: [facility] Address: [address] [place] [address] Performed By: #### 3 016-3, LIPNF, 88087-6 ####[facility] LABCLIA [id number] [place] [address] [place] Protein [Mass/Vol] 6.9 g/dL Normal 6.3-8.0 [facility] Comment on above: Order Comment: Speci men Type: BLOOD SPECIMENOrdering Facility: [facility] Address: [address] [place] [address] Performed By: #### 3 016-3, LIPNF, 83240-9 ####[facility] LABCLIA [id number] [place] [address] [place] Sodium [Moles/Vol] 141 mmol/L Normal 136-144 [facility] Comment on above: Order Comment: Speci men Type: BLOOD SPECIMENOrdering Facility: [facility] Address: [address] [place] [address] Performed By: #### 3 016-3, LIPNF, 68047-7 ####[facility] LABCLIA [id number] [place] [id number] [place] Urea nitrogen [Mass/Vol] 17 mg/dL Normal 7-21 [facility] Comment on above: Order Comment: Speci men Type: BLOOD SPECIMENOrdering Facility: [facility] Address: [address] [place] [address] Performed By: #### 3 016-3, LIPNF, 02625-5 ####[facility] LABCLIA [id number] [address] [place] HbA1c (Bld)on 04-17-2024 Average glucose Estimated from glycated hemoglobin (Bld) [Mass/Vol] 100 mg/dL Normal [facility] Comment on above: Order Comment: Sima collado Type: BLOOD SPECIMENOrdering Facility: [facility] Address: [address] [place] [address] Result Comment: eAG: (Estimated average glucose) is a calculated value from HgbA1c and is lead generation representative of the average blood glucose level in the last 2-3 month period. Performed By: #### 5 5454-3 ####[facility] OHIOIA [id number] [address] [place] OF [facility] HbA1c (Bld) [Mass fraction] 5.1 % Normal 4.3-5.6 [facility] Comment on above: Order Comment: Sima collado Type: BLOOD SPECIMENOrdering Facility: [facility] Address: [address] [place] [address] Result Comment: Amer [place] Diabetes Association guidelines indicate that patients with HgbA1c in the range 5.7-6.4% are at increased risk for development of diabetes, and intervention by lifestyle modification may be beneficial. HgbA1c greater or equal to 6.5% is considered diagnostic of diabetes. Performed By: #### 5 5454-3 ####[facility] LABIA [id number] [place] [address] [place] [facility] [place] LIPID PANEL, NONFASTINGon Cholesterol [Mass/Vol] 146 mg/dL Normal <200 [facility] Comment on above: Order Comment: Sima collado Type: BLOOD SPECIMENOrdering Facility: [facility] Address: [address] [place] [address] Result Comment: <200 mg/dL, Desirable 200-239 mg/dL, Borderline high >239 mg/dL, High Performed By: #### 3 016-3, LIPNF, 15103-3 ####[facility] LABIA [id number] [address] HDL CHOLESTEROL, NF 63 mg/dL Normal >39 [facility] Comment on above: Order Comment: Faisalkenyon collado Type: BLOOD SPECIMENOrdering Facility: [facility] Address: [address] [place] [address] Result Comment: 40-5 9 mg/dL, Acceptable >59 mg/dL, High: Negative risk factor for coronary heart disease <40 mg/dL, Low: Positive risk factor for coronary heart disease Performed By: #### 3 016-3, LIPNF, 71036-0 ####[facility] LABCLIA [id number] [address] LDL CHOLESTEROL, NF 63 mg/dL Normal <100 [facility] Comment on above: Order Comment: Sima tobias Type: BLOOD SPECIMENOrdering Facility: [facility] Address: [address] [place] [address] Result Comment: <100 mg/dL, Optimal 100-129 mg/dL, Near optimal/above optimal 130-159 mg/dL, Borderline high 160-189 mg/dL, High >189 mg/dL, Very high Secondary prevention optimal LDL Cholesterol levels are recommended to be < 70 mg/dL Performed By: #### 3 016-3, LIPNF, 71786-8 ####[facility] LABCLIA [id number] [address] OF [facility] LDL/HDL RATIO, NF 1.00 mg/dL Normal <2.54 [facility] Comment on above: Order Comment: Sima collado Type: BLOOD SPECIMENOrdering Facility: [facility] Address: [address] [place] [address] Result Comment: Refe pavelce: 1. National Cholesterol Education Program ATP III Guideline At-A-Glance Quick Desk Reference: National Heart, Lung, and Blood [place]. National Institutes of Health. 2001: NIH Publication No. 01-3305. 2. An International Atherosclerosis Society position paper: global recommendations for the management of dyslipidemia: executive summary, Atherosclerosis. 2014: 232(2):410-413. Performed By: #### 3 016-3, LIPNF, 39818-3 ####[facility] LABCLIA [id number] [place] [address] [place] NON HDL CHOL, NF 83 mg/dL Normal <130 [facility] Comment on above: Order Comment: Speci men Type: BLOOD SPECIMENOrdering Facility: [facility] Address: [address] [place] [address] Result Comment: <130 mg/dL, Optimal 130-159 mg/dL, Near optimal/above optimal 160-189 mg/dL, Borderline high 190-219 mg/dL, High >219 mg/dL, Very high Secondary prevention optimal non HDL Cholesterol levels are recommended to be <100 mg/dL Performed By: #### 3 016-3, LIPNF, ####[facility] LABCLIA [id number] [place] [address] [place] T CHOL/HDL RATIO NF 2.32 mg/dL Normal <5.10 [facility] Comment on above: Order Comment: Speci men Type: BLOOD SPECIMENOrdering Facility: [facility] Address: [address] [place] [address] Performed By: #### 3 016-3, LIPNF, ####[facility] LABCLIA [id number] [place] [address] [place] TRIGLYCERIDES, NF 99 mg/dL Normal <150 [facility] Comment on above: Order Comment: Speci men Type: BLOOD SPECIMENOrdering Facility: [facility] Address: [address] [place] [address] Result Comment: <150 mg/dL, Normal 150-199 mg/dL, Borderline high 200-499 mg/dL, High >499 mg/dL, Very high Performed By: #### 3 016-3, LIPNF, 96259-2 ####[facility] LABCLIA [id number] [place] [address] [place] VLDL CHOLESTEROL, NF 20 mg/dL Normal <30 [facility] Comment on above: Order Comment: Speci men Type: BLOOD SPECIMENOrdering Facility: [facility] Address: [address] [place] [address] Performed By: #### 3 016-3, LIPNAGA, 62710-0 ####[facility] LABCLIA [id number] [place] [address] [place] TSH SerPl-aCncon 04-17-2024 TSH Qn 1.990 m[IU]/L Normal 0.270-4.200 [facility] Comment on above: Order Comment: Speci men Type: BLOOD SPECIMENOrdering Facility: [facility] Address: [address] [place] [address] Performed By: #### 3 016-3, LIPNAGA, 42831-9 ####[facility] LABCLIA [id number] [address] [place] CNOVon 03-30-2024 CNOV Office Visit (FAMPWS ) GUICHO MARTINEZ ([id number]) 1935 F Date Time Provider Department 03/30/24 [...] 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 Per rheumatology duzkcv-shpgibjl-rgrhskw (ZENPEP) 40,000-126,000- 168,000 unit delayed release capsule [...] 10/01/2024 Ivon (more content not included)... Normal [facility] Federico 03-29-2024 NANDAN Telephone (FAMPWS) JUANGUICHO C ([id number]) 1935 F Date Time Provider Department 03/29/24 [...] by mouth once daily. Per rheumatology - srytxn-egqztfot-dxztahh (ZENPEP) 40,000-126,000- 168,000 unit delayed release capsule [...] Encounter Status:Closed by HUGO RANDLE on 03/29/24 [facility] CNOVon 03-04-2024 CNOV Office Visit (FAMPWS ) GUICHO MARTINEZ ([id number]) 1935 F Date Time Provider Department 03/04/24 5:40 PM FAUZIA WAGNER During your visit today, we recorded the following information about you: Pulse Blood pressure Weight 79/minute 146/77 42.6 kg Fauzia Wagner APRN.PRINT PROJECT MANAGER 03/04/2024 5:50 PM Signed Chief Complaint No [...] the Alzheimer's type, with late onset, uncomplicated ([facility]) 05/08/2022 Diverticulosis of colon (without mention of [...] tablet by mouth once daily. Per rheumatology syoxad-ayrubjxw-qnfcswv (ZENPEP) 40,000-126,000- 168,000 unit delayed release capsule [...] Health Maint (more content not included)... Normal [facility] Brain/Head without Contrasto n 02-27-2024 Brain/Head without Contrast [facility] Imaging Services [address] [place] [address] [id number] Brain/Head without Contrast MR#: [id number] Acct: [id number] Name: Jaye MARTINEZ Rep #: [id number] : 1935 F 88 From: Duc Jj PCP: Dr. Bairon Torres MD Status: [facility] Study: Brain/Head without Contrast Date of Exam: 02/01 09/23 Exam# [id number] Ordering Dr: Augustin Parr LOG CUT OFF SAWYER-C :[id number] INDICATION: fall EXAMINATION: CT BRAIN - CT [...] CC: ALVA Parr; Dr. Bairon Torres MD Methods Study Analyst: Signed Normal [facility] Emergency Department Summary on 02-27-2024 Emergency Department Summary [facility] Medical Records Department [address] [place] [address] Emergency Department Summary 02/27/24 MR#: [id number] Acct: [id number] Name: Jaye MARTINEZ Rep #: [id number] : 1935 88 From: Augustin CALLE PCP: [...] as her left knee. Tetanus vaccination up-to-date. [facility] Medical History (Updated 02/27/24 @ 19:30 by [...] PO DAILY hair growth 04/24/22 Unknown History xthvlbpbfyej-lfxhpaer-mzklqa tablet 1 tab PO DAILY 04/24/22 Unknown History rivastigmine tartrate 1.5 mg 1.5 mg PO QHS memory 04/24/22 Unknown History capsule rosuvastatin 10 mg tablet (Crestor) 10 mg PO QODAY cholesterol 04/24/22 Unknown History copivc-zaqypykh-moyjgwm 1 cap PO TID #90 caps 02/12/24 [...] of motion (more content not included)... Normal [facility] Knee 4 or More Viewson 02-26 Knee 4 or More Views [facility] Imaging Services [address] [place], [place] [address] Knee 4 or More Views MR#: [id number] Acct: [id number] Name: Jaye MARTINEZ Rep #: [id number] : 1935 F 88 From: Duc Jj PCP: Dr. Bairon Torres MD Status: [facility] Study: Knee 4 or More Views Date of Exam: 02/27/24 Exam# [id number] Ordering Dr: Augustin Parr LOG CUT OFF SAWYER-C :[id number] INDICATION: fall EXAMINATION/TECHNIQUE: X-RAY - LEFT XR [...] CC: ALVA Parr; Dr. Bairon Torres MD Methods Study Analyst: Signed Normal [facility] Sinus/Facial Boneon 02-27-20 Sinus/Facial Bone [facility] Imaging Services [address] [place] [address] Sinus/Facial Bone MR#: [id number] Acct: [id number] Name: Jaye MARTINEZ Rep #: [id number] : 1935 F 88 From: Duc Jj PCP: Dr. Bairon Torres MD Status: REG ER Study: Sinus/Facial Bone Date of Exam: 02/27/24 Exam# [id number] Ordering Dr: Augustin Parr :[id number] INDICATION: fall EXAMINATION: CT FACIAL BONES - [...] CC: ALVA Parr; Dr. Bairon Torres MD Methods Study Analyst: Signed Normal [facility] Spine Cervical without Contr ason 02-27-2024 Spine Cervical without Contras [facility] Imaging Services [address] [place], [place] [id number] Spine Cervical without Contras MR#: [id number] Acct: [id number] Name: Jaye MARTINEZ Rep #: [id number] : 1935 F 88 From: Duc Jj PCP: Dr. Bairon Torres MD Status: REG ER Study: Spine Cervical without Contras Date of Exam: 04/29/23 Exam# [id number] Ordering Dr: Augustin Parr :[id number] INDICATION: fall EXAMINATION: CT CERVICAL SPINE - [...] CC: ALVA Parr; Dr. Bairon Torres MD Methods Study Analyst: Signed Normal [facility] CBC W Auto Differential pane l (Bld)on 11-11-2023 Basophils (Bld) [#/Vol] 0.04 10*3/uL Normal <0.11 [facility] Comment on above: Order Comment: Speci men Type: BLOOD SPECIMENOrdering Facility: [facility] Address: [address] [place] [address] Performed By: #### 5 7021-8 ####[facility] LABCLIA [id number] [place] [address] [place] Basophils/100 WBC (Bld) 0.7 % Normal [facility] Comment on above: Order Comment: Speci men Type: BLOOD SPECIMENOrdering Facility: [facility] Address: [address] [place] [address] Performed By: #### 5 7021-8 ####[facility] LABCLIA [id number] [place] [address] [place] Differential cell count method Nom (Bld) Auto Normal [facility] Comment on above: Order Comment: Speci men Type: BLOOD SPECIMENOrdering Facility: [facility] Address: [address] [place] [address] Performed By: #### 5 7021-8 ####[facility] LABCLIA [id number] [place] [address] [place] Eosinophils (Bld) [#/Vol] 0.27 10*3/uL Normal <0.46 [facility] Comment on above: Order Comment: Speci men Type: BLOOD SPECIMENOrdering Facility: [facility] Address: [address] [place] [address] Performed By: #### 5 7021-8 ####[facility] LABCLIA [id number] [place] [address] [place] Eosinophils/100 WBC (Bld) 4.6 % Normal [facility] Comment on above: Order Comment: Faisali men Type: BLOOD SPECIMENOrdering Facility: [facility] Address: [address] [place] [address] Performed By: #### 5 7021-8 ####[facility] LABCLIA [id number] [place] [address] [place] Erythrocyte distribution width (RBC) [Ratio] 12.3 % Normal 11.5-15.0 [facility] Comment on above: Order Comment: Faisali tobias Type: BLOOD SPECIMENOrdering Facility: [facility] Address: [address] [place] [address] Performed By: #### 5 7021-8 ####[facility] LABCLIA [id number] [place] [address] [place] Hematocrit (Bld) [Volume fraction] 38.7 % Normal 36.0-46.0 [facility] Comment on above: Order Comment: Faisali men Type: BLOOD SPECIMENOrdering Facility: [facility] Address: [address] [place] [address] Performed By: #### 5 7021-8 ####[facility] LABCLIA [id number] [place] [id number] [place] Hemoglobin (Bld) [Mass/Vol] 12.8 g/dL Normal 11.5-15.5 [facility] Comment on above: Order Comment: Speci men Type: BLOOD SPECIMENOrdering Facility: [facility] Address: [address] [place] [address] Performed By: #### 5 7021-8 ####[facility] LABCLIA [id number] [place] [address] [place] Immature granulocytes (Bld) [#/Vol] 10*3/uL Normal <0.10 [facility] Comment on above: Order Comment: Speci men Type: BLOOD SPECIMENOrdering Facility: [facility] Address: [address] [place] [address] Performed By: #### 5 7021-8 ####[facility] LABCLIA [id number] [place] [address] [place] Immature granulocytes/100 WBC (Bld) 0.3 % Normal [facility] Comment on above: Order Comment: Speci men Type: BLOOD SPECIMENOrdering Facility: [facility] Address: [address] [place] [address] Performed By: #### 5 7021-8 ####[facility] LABCLIA [id number] [place] [address] [place] Lymphocytes (Bld) [#/Vol] 1.49 10*3/uL Normal 1.00-4.00 [facility] Comment on above: Order Comment: Speci men Type: BLOOD SPECIMENOrdering Facility: [facility] Address: [address] [place] [address] Performed By: #### 5 7021-8 ####[facility] LABCLIA [id number] [place] [address] [place] Lymphocytes/100 WBC (Bld) 25.1 % Normal [facility] Comment on above: Order Comment: Speci men Type: BLOOD SPECIMENOrdering Facility: [facility] Address: [address] [place] [address] Performed By: #### 5 7021-8 ####[facility] LABCLIA [id number] [place] [address] [place] MCH (RBC) [Entitic mass] 31.8 pg Normal 26.0-34.0 [facility] Comment on above: Order Comment: Speci men Type: BLOOD SPECIMENOrdering Facility: [facility] Address: [address] [place] [address] Performed By: #### 5 7021-8 ####[facility] [id number] [address] [place] MCHC (RBC) [Mass/Vol] 33.1 g/dL Normal 30.5-36.0 [facility] Comment on above: Order Comment: Speci men Type: BLOOD SPECIMENOrdering Facility: [facility] Address: [address] [place] [address] Performed By: #### 5 7021-8 ####[facility] [id number] [place] [address] [place] MCV (RBC) [Entitic vol] 96.3 fL Normal 80.0-100.0 [facility] Comment on above: Order Comment: Speci men Type: BLOOD SPECIMENOrdering Facility: [facility] Address: [address] [place] [address] Performed By: #### 5 7021-8 ####[facility] [id number] [place] [address] [place] Monocytes (Bld) [#/Vol] 0.63 10*3/uL Normal <0.87 [facility] Comment on above: Order Comment: Speci men Type: BLOOD SPECIMENOrdering Facility: [facility] Address: [address] [place] [address] Performed By: #### 5 7021-8 ####[facility] [id number] [address] [place] Monocytes/100 WBC (Bld) 10.6 % Normal [facility] Comment on above: Order Comment: Speci men Type: BLOOD SPECIMENOrdering Facility: [facility] Address: [address] [place] [address] Performed By: #### 5 7021-8 ####[facility] LABCLIA [id number] [place] [address] [place] Neutrophils (Bld) [#/Vol] 3.48 10*3/uL Normal 1.45-7.50 [facility] Comment on above: Order Comment: Speci men Type: BLOOD SPECIMENOrdering Facility: [facility] Address: [address] [place] [address] Performed By: #### 5 7021-8 ####[facility] LABCLIA [id number] [place] [address] [place] Neutrophils/100 WBC (Bld) 58.7 % Normal [facility] Comment on above: Order Comment: Speci men Type: BLOOD SPECIMENOrdering Facility: [facility] Address: [address] [place] [address] Performed By: #### 5 7021-8 ####[facility] LABCLIA [id number] [place] [address] [place] Nucleated RBC (Bld) [#/Vol] 10*3/uL Normal <0.01 [facility] Comment on above: Order Comment: Speci men Type: BLOOD SPECIMENOrdering Facility: [facility] Address: [address] [place] [address] Performed By: #### 5 7021-8 ####[facility] LABCLIA [id number] [place] [address] [place] Nucleated RBC/100 WBC (Bld) [Ratio] 0.0 /100 WBC Normal [facility] Comment on above: Order Comment: Speci men Type: BLOOD SPECIMENOrdering Facility: [facility] Address: [address] [place] [address] Performed By: #### 5 7021-8 ####[facility] LABCLIA [id number] [place] [address] [place] Platelet mean volume (Bld) [Entitic vol] 9.7 fL Normal 9.0-12.7 [facility] Comment on above: Order Comment: Speci men Type: BLOOD SPECIMENOrdering Facility: [facility] Address: [address] [place] [address] Performed By: #### 5 7021-8 ####[facility] [id number] [place] [address] [place] Platelets (Bld) [#/Vol] 204 10*3/uL Normal 150-400 [facility] Comment on above: Order Comment: Speci men Type: BLOOD SPECIMENOrdering Facility: [facility] Address: [address] [place] [address] Performed By: #### 5 7021-8 ####[facility] [id number] [place] [address] [place] RBC (Bld) [#/Vol] 4.02 10*6/uL Normal 3.90-5.20 [facility] Comment on above: Order Comment: Speci men Type: BLOOD SPECIMENOrdering Facility: [facility] Address: [address] [place] [address] Performed By: #### 5 7021-8 ####[facility] [id number] [place] [id number] [place] WBC (Bld) [#/Vol] 5.93 10*3/uL Normal 3.70-11.00 [facility] Comment on above: Order Comment: Speci men Type: BLOOD SPECIMENOrdering Facility: [facility] Address: [address] [place] [address] Performed By: #### 5 7021-8 ####[facility] [id number] [place] [address] [place] CNOVon 11-11-2023 CNOV Office Visit (NEMOWS ) GUICHO MARTINEZ ([id number]) 1935 F Date Time Provider Department 11/11/23 3:45 PM HUE TORRES During your visit today, we recorded the following information about you: Pulse Respiration Blood pressure Weight 68/minute 16/minute 111/68 42 kg Hue Torres PA-C 11/11/2023 4:48 PM Signed [facility] Name: Guicho Martinez [...] dementia. Unfortunately, was unable to do a [place] due to time constraints. 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 Patient's primary concern today was her [...] Exam B (more content not included)... Normal [facility] Comprehensive metabolic 2000 panelon 11-11-2023 Albumin [Mass/Vol] 4.2 g/dL Normal 3.9-4.9 [facility] Comment on above: Order Comment: Speci men Type: BLOOD SPECIMENOrdering Facility: [facility] Address: [address] [place] [address] Performed By: #### 2 4323-8 ####[facility] LABCLIA [id number] [place] [address] [place] ALP [Catalytic activity/Vol] 73 U/L Normal 34-123 [facility] Comment on above: Order Comment: Speci men Type: BLOOD SPECIMENOrdering Facility: [facility] Address: [address] [place] [address] Performed By: #### 2 4323-8 ####[facility] LABCLIA [id number] [place] [address] [place] ALT [Catalytic activity/Vol] 17 U/L Normal 7-38 [facility] Comment on above: Order Comment: Speci men Type: BLOOD SPECIMENOrdering Facility: [facility] Address: [address] [place] [address] Performed By: #### 2 4323-8 ####[facility] LABCLIA [id number] [place] [address] [place] Anion gap [Moles/Vol] 12 mmol/L Normal 8-15 [facility] Comment on above: Order Comment: Speci men Type: BLOOD SPECIMENOrdering Facility: [facility] Address: [address] [place] [address] Performed By: #### 2 4323-8 ####[facility] LABCLIA [id number] [place] [address] [place] AST [Catalytic activity/Vol] 28 U/L Normal 13-35 [facility] Comment on above: Order Comment: Speci men Type: BLOOD SPECIMENOrdering Facility: [facility] Address: [address] [place] [address] Performed By: #### 2 4323-8 ####[facility] LABCLIA [id number] [place] [address] [place] Bilirubin [Mass/Vol] 0.4 mg/dL Normal 0.2-1.3 [facility] Comment on above: Order Comment: Speci men Type: BLOOD SPECIMENOrdering Facility: [facility] Address: [address] [place] [address] Performed By: #### 2 4323-8 ####[facility] LABCLIA [id number] [place] [address] [place] Calcium [Mass/Vol] 9.4 mg/dL Normal 8.5-10.2 [facility] Comment on above: Order Comment: Speci men Type: BLOOD SPECIMENOrdering Facility: [facility] Address: [address] [place] [address] Performed By: #### 2 4323-8 ####[facility] LABCLIA [id number] [place] [address] [place] Chloride [Moles/Vol] 104 mmol/L Normal 98-107 [facility] Comment on above: Order Comment: Speci men Type: BLOOD SPECIMENOrdering Facility: [facility] Address: [address] [place] [address] Performed By: #### 2 4323-8 ####[facility] LABCLIA [id number] [place] [address] [place] CO2 [Moles/Vol] 26 mmol/L Normal 22-30 [facility] Comment on above: Order Comment: Speci men Type: BLOOD SPECIMENOrdering Facility: [facility] Address: [address] [place] [address] Performed By: #### 2 4323-8 ####[facility] LABIA [id number] [place] [address] [place] Creatinine [Mass/Vol] 0.95 mg/dL Normal 0.58-0.96 [facility] Comment on above: Order Comment: Speci men Type: BLOOD SPECIMENOrdering Facility: [facility] Address: [address] [place] [address] Performed By: #### 2 4323-8 ####[facility] LABIA [id number] [address] [place] Creatinine and Glomerular filtration rate.predicted panel (S/P/Bld) 58 mL/min/1.73m??? Low >=60 [facility] Comment on above: Order Comment: Speci men Type: BLOOD SPECIMENOrdering Facility: [facility] Address: [address] [place] [address] Result Comment: Josey mated Glomerular Filtration Rate [...] actual GFR. Performed By: #### 2 4323-8 ####[facility] LABIA [id number] [place] [address] [place] Glucose [Mass/Vol] 91 mg/dL Normal 74-99 [facility] Comment on above: Order Comment: Speci men Type: BLOOD SPECIMENOrdering Facility: [facility] Address: [address] [place] [address] Result Comment: The [place] [employer] (ADA) provides guidance for cutoff [...] Standards of Medical Care in Diabetes 2016, [place] [employer]. Diabetes Care. 2016.39(Suppl 1). Performed By: #### 2 4323-8 ####[facility] LABCLIA [id number] [place] [address] [place] Potassium [Moles/Vol] 4.1 mmol/L Normal 3.7-5.1 [facility] Comment on above: Order Comment: Sima collado Type: BLOOD SPECIMENOrdering Facility: [facility] Address: [address] [place] [address] Performed By: #### 2 4322-8 ####[facility] LABIA [id number] [place] [address] [place] Protein [Mass/Vol] 6.9 g/dL Normal 6.3-8.0 [facility] Comment on above: Order Comment: Sima collado Type: BLOOD SPECIMENOrdering Facility: [facility] Address: [address] [place] [address] Performed By: #### 2 4322-8 ####[facility] LABIA [id number] [place] [address] [place] Sodium [Moles/Vol] 142 mmol/L Normal 136-144 [facility] Comment on above: Order Comment: Sima collado Type: BLOOD SPECIMENOrdering Facility: [facility] Address: [address] [place] [address] Performed By: #### 2 432-8 ####[facility] LABCLIA [id number] [place] [id number] [place] Urea nitrogen [Mass/Vol] 19 mg/dL Normal 7- [facility] Comment on above: Order Comment: Speci men Type: BLOOD SPECIMENOrdering Facility: [facility] Address: [address] [place] [address] Performed By: #### 2 4323-8 ####[facility] LABCLIA [id number] [address] [place] CNPNon 10-22-2023 CNPN Telephone (FAMPWS) GUICHO MARTINEZ ([id number]) 1935 F Date Time Provider Department 10/22/23 [facility] During your visit today, we recorded the [...] by mouth once daily. Per rheumatology - drcpwi-wdlymfuo-oeqpbco (ZENPEP) 40,000-126,000- 168,000 unit delayed release capsule [...] Status:Closed by KEERTHI GO on 10/22/23 Normal [facility] CBC W Auto Differential pane l (Bld)on 10-21-2023 Basophils (Bld) [#/Vol] 0.05 10*3/uL [facility] Basophils/100 WBC (Bld) 0.7 % [facility] Differential cell count method Nom (Bld) Auto [facility] Eosinophils (Bld) [#/Vol] 0.29 10*3/uL [facility] Eosinophils/100 WBC (Bld) 4.3 % [facility] Erythrocyte distribution width (RBC) [Ratio] 12.1 % 11.5 - 15.0 % [facility] Hematocrit (Bld) [Volume fraction] 42.2 % 36.0 - 46.0 % [facility] Hemoglobin (Bld) [Mass/Vol] 13.5 g/dL 11.5 - 15.5 g/dL [facility] Immature granulocytes (Bld) [#/Vol] [facility] Immature granulocytes/100 WBC (Bld) 0.1 % [facility] Lymphocytes (Bld) [#/Vol] 1.22 10*3/uL [facility] Lymphocytes/100 WBC (Bld) 17.9 % [facility] MCH (RBC) [Entitic mass] 31.1 pg 26.0 - 34.0 pg [facility] MCHC (RBC) [Mass/Vol] 32.0 g/dL 30.5 - 36.0 g/dL [facility] MCV (RBC) [Entitic vol] 97.2 fL 80.0 - 100.0 fL [facility] Monocytes (Bld) [#/Vol] 0.67 10*3/uL [facility] Monocytes/100 WBC (Bld) 9.9 % [facility] Neutrophils (Bld) [#/Vol] 4.56 10*3/uL [facility] Neutrophils/100 WBC (Bld) 67.1 % [facility] Nucleated RBC (Bld) [#/Vol] [facility] Nucleated RBC/100 WBC (Bld) [Ratio] 0.0 % /100 WBC [facility] Platelet mean volume (Bld) [Entitic vol] 10.0 fL 9.0 - 12.7 fL [facility] Platelets (Bld) [#/Vol] 208 10*3/uL [facility] RBC (Bld) [#/Vol] 4.34 10*6/uL 3.90 - 5.2 0 m/uL [facility] WBC (Bld) [#/Vol] 6.80 10*3/uL [facility] Basophils (Bld) [#/Vol] 0.05 10*3/uL Normal <0.11 [facility] Comment on above: Order Comment: Speci men Type: BLOOD SPECIMENOrdering Facility: [facility] Address: [address] [place] [address] Performed By: #### 5 7021-8 ####[facility] LABCLIA [id number] [place] [address] [place] Basophils/100 WBC (Bld) 0.7 % Normal [facility] Comment on above: Order Comment: Speci men Type: BLOOD SPECIMENOrdering Facility: [facility] Address: [address] [place] [address] Performed By: #### 5 7021-8 ####[facility] LABCLIA [id number] [place] [address] [place] Differential cell count method Nom (Bld) Auto Normal [facility] Comment on above: Order Comment: Speci men Type: BLOOD SPECIMENOrdering Facility: [facility] Address: [address] [place] [address] Performed By: #### 5 7021-8 ####[facility] LABCLIA [id number] [place] [address] [place] Eosinophils (Bld) [#/Vol] 0.29 10*3/uL Normal <0.46 [facility] Comment on above: Order Comment: Speci men Type: BLOOD SPECIMENOrdering Facility: [facility] Address: [address] [place] [address] Performed By: #### 5 7021-8 ####[facility] LABCLIA [id number] [place] [address] [place] Eosinophils/100 WBC (Bld) 4.3 % Normal [facility] Comment on above: Order Comment: Speci men Type: BLOOD SPECIMENOrdering Facility: [facility] Address: [address] [place] [address] Performed By: #### 5 7021-8 ####[facility] LABCLIA [id number] [place] [address] [place] Erythrocyte distribution width (RBC) [Ratio] 12.1 % Normal 11.5-15.0 [facility] Comment on above: Order Comment: Speci men Type: BLOOD SPECIMENOrdering Facility: [facility] Address: [address] [place] [address] Performed By: #### 5 7021-8 ####[facility] LABCLIA [id number] [place] [address] [place] Hematocrit (Bld) [Volume fraction] 42.2 % Normal 36.0-46.0 [facility] Comment on above: Order Comment: Speci men Type: BLOOD SPECIMENOrdering Facility: [facility] Address: [address] [place] [address] Performed By: #### 5 7021-8 ####[facility] LABCLIA [id number] [place] [address] [place] Hemoglobin (Bld) [Mass/Vol] 13.5 g/dL Normal 11.5-15.5 [facility] Comment on above: Order Comment: Speci men Type: BLOOD SPECIMENOrdering Facility: [facility] Address: [address] [place] [address] Performed By: #### 5 7021-8 ####[facility] LABCLIA [id number] [place] [address] [place] Immature granulocytes (Bld) [#/Vol] 10*3/uL Normal <0.10 [facility] Comment on above: Order Comment: Speci men Type: BLOOD SPECIMENOrdering Facility: [facility] Address: [address] [place] [address] Performed By: #### 5 7021-8 ####[facility] LABCLIA [id number] [place] [address] [place] Immature granulocytes/100 WBC (Bld) 0.1 % Normal [facility] Comment on above: Order Comment: Speci men Type: BLOOD SPECIMENOrdering Facility: [facility] Address: [address] [place] [address] Performed By: #### 5 7021-8 ####[facility] LABCLIA [id number] [place] [address] [place] Lymphocytes (Bld) [#/Vol] 1.22 10*3/uL Normal 1.00-4.00 [facility] Comment on above: Order Comment: Speci men Type: BLOOD SPECIMENOrdering Facility: [facility] Address: [address] [place] [address] Performed By: #### 5 7021-8 ####[facility] LABCLIA [id number] [place] [address] [place] Lymphocytes/100 WBC (Bld) 17.9 % Normal [facility] Comment on above: Order Comment: Speci men Type: BLOOD SPECIMENOrdering Facility: [facility] Address: [address] [place] [address] Performed By: #### 5 7021-8 ####[facility] LABCLIA [id number] [place] [address] [place] MCH (RBC) [Entitic mass] 31.1 pg Normal 26.0-34.0 [facility] Comment on above: Order Comment: Speci men Type: BLOOD SPECIMENOrdering Facility: [facility] Address: [address] [place] [address] Performed By: #### 5 7021-8 ####[facility] LABCLIA [id number] [place] [address] [place] MCHC (RBC) [Mass/Vol] 32.0 g/dL Normal 30.5-36.0 [facility] Comment on above: Order Comment: Speci men Type: BLOOD SPECIMENOrdering Facility: [facility] Address: [address] [place] [address] Performed By: #### 5 7021-8 ####[facility] LABIA [id number] [place] [address] [place] MCV (RBC) [Entitic vol] 97.2 fL Normal 80.0-100.0 [facility] Comment on above: Order Comment: Speci men Type: BLOOD SPECIMENOrdering Facility: [facility] Address: [address] [place] [address] Performed By: #### 5 7021-8 ####[facility] LABIA [id number] [place] [address] [place] Monocytes (Bld) [#/Vol] 0.67 10*3/uL Normal <0.87 [facility] Comment on above: Order Comment: Speci men Type: BLOOD SPECIMENOrdering Facility: [facility] Address: [address] [place] [address] Performed By: #### 5 7021-8 ####[facility] LABIA [id number] [place] [address] [place] Monocytes/100 WBC (Bld) 9.9 % Normal [facility] Comment on above: Order Comment: Speci men Type: BLOOD SPECIMENOrdering Facility: [facility] Address: [address] [place] [address] Performed By: #### 5 7021-8 ####[facility] LABIA [id number] [place] [address] [place] Neutrophils (Bld) [#/Vol] 4.56 10*3/uL Normal 1.45-7.50 [facility] Comment on above: Order Comment: Speci men Type: BLOOD SPECIMENOrdering Facility: [facility] Address: [address] [place] [address] Performed By: #### 5 7021-8 ####[facility] LABCLIA [id number] [place] [address] [place] Neutrophils/100 WBC (Bld) 67.1 % Normal [facility] Comment on above: Order Comment: Speci men Type: BLOOD SPECIMENOrdering Facility: [facility] Address: [address] [place] [address] Performed By: #### 5 7021-8 ####[facility] LABCLIA [id number] [place] [address] [place] Nucleated RBC (Bld) [#/Vol] 10*3/uL Normal <0.01 [facility] Comment on above: Order Comment: Speci men Type: BLOOD SPECIMENOrdering Facility: [facility] Address: [address] [place] [address] Performed By: #### 5 7021-8 ####[facility] LABCLIA [id number] [place] [address] [place] Nucleated RBC/100 WBC (Bld) [Ratio] 0.0 /100 WBC Normal [facility] Comment on above: Order Comment: Speci men Type: BLOOD SPECIMENOrdering Facility: [facility] Address: [address] [place] [address] Performed By: #### 5 7021-8 ####[facility] LABCLIA [id number] [place] [address] [place] Platelet mean volume (Bld) [Entitic vol] 10.0 fL Normal 9.0-12.7 [facility] Comment on above: Order Comment: Speci men Type: BLOOD SPECIMENOrdering Facility: [facility] Address: [address] [place] [address] Performed By: #### 5 7021-8 ####[facility] LABIA [id number] [place] [address] [place] Platelets (Bld) [#/Vol] 208 10*3/uL Normal 150-400 [facility] Comment on above: Order Comment: Speci men Type: BLOOD SPECIMENOrdering Facility: [facility] Address: [address] [place] [address] Performed By: #### 5 7021-8 ####[facility] LABIA [id number] [place] [address] [place] RBC (Bld) [#/Vol] 4.34 10*6/uL Normal 3.90-5.20 [facility] Comment on above: Order Comment: Speci men Type: BLOOD SPECIMENOrdering Facility: [facility] Address: [address] [place] [address] Performed By: #### 5 7021-8 ####[facility] LABIA [id number] [place] [address] [place] WBC (Bld) [#/Vol] 6.80 10*3/uL Normal 3.70-11.00 [facility] Comment on above: Order Comment: Speci men Type: BLOOD SPECIMENOrdering Facility: [facility] Address: [address] [place] [address] Performed By: #### 5 7021-8 ####[facility] LABIA [id number] [place] [address] [place] CNOVon 10-21-2023 CNOV Office Visit (FAMPWS ) GUICHO MARTINEZ ([id number]) 1935 F Date Time Provider Department 10/21/23 1:00 PM BAIRON TORRES During your visit today, we recorded the following information about you: Pulse Respiration Blood pressure Weight 64/minute 14/minute 128/72 41.3 kg Height 1.588 m Bairno Torres MD 10/21/2023 2:03 PM Addendum Stop [...] review all the medicines you take, even qzkt-tzk-dbjcyjv medicines. As you get older, the way [...] as PCP (more content not included)... Normal [facility] Comprehensive metabolic 2000 panelon 10-21-2023 Albumin [Mass/Vol] 4.4 g/dL 3.9 - 4.9 g/dL [facility] ALP [Catalytic activity/Vol] 80 U/L 34 - 123 U/L [facility] ALT [Catalytic activity/Vol] 12 U/L 7 - 38 U/L [facility] Anion gap [Moles/Vol] 9 mmol/L 8 - 15 mmol/L [facility] AST [Catalytic activity/Vol] 26 U/L 13 - 35 U/L [facility] Bilirubin [Mass/Vol] 0.6 mg/dL 0.2 - 1 .3 mg/dL [facility] Calcium [Mass/Vol] 10.0 mg/dL 8.5 - 10. 2 mg/dL [facility] Chloride [Moles/Vol] 101 mmol/L 98 - 10 7 mmol/L [facility] CO2 [Moles/Vol] 30 mmol/L 22 - 30 mmol/L [facility] Creatinine [Mass/Vol] 0.93 mg/dL 0.58 - 0.96 mg/dL [facility] GFR/1.73 sq M.predicted among non-blacks MDRD (S/P/Bld) [Vol rate/Area] 60 mL/min/{1.73_m2} - PINF [facility] Comment on above: Estimated Glomerular Filtration Rate [...] [Mass/Vol] 87 mg/dL 74 - 99 mg/dL [facility] Comment on above: The [place] Diabete s Association (ADA) provides guidance for [...] Standards of Medical Care in Diabetes 2016, [place] Diabetes Association. Diabetes Care. 2016.39(Suppl 1). Potassium [Moles/Vol] 4.7 mmol/L 3.7 - 5.1 mmol/L [facility] Protein [Mass/Vol] 7.0 g/dL 6.3 - 8.0 g/dL [facility] Sodium [Moles/Vol] 140 mmol/L 136 - 144 mmol/L [facility] Urea nitrogen [Mass/Vol] 13 mg/dL 7 - 21 mg/dL [facility] Albumin [Mass/Vol] 4.4 g/dL Normal 3.9-4.9 [facility] Comment on above: Order Comment: Speci men Type: BLOOD SPECIMENOrdering Facility: [facility] Address: [address] [place] [address] Performed By: #### L IPNF, 3016-3, 16123-5 ####[facility] LABCLIA [id number] [place] [address] [place] ALP [Catalytic activity/Vol] 80 U/L Normal 34-123 [facility] Comment on above: Order Comment: Speci men Type: BLOOD SPECIMENOrdering Facility: [facility] Address: [address] [place] [address] Performed By: #### L IPNF, 6-3, 15819-0 ####[facility] LABCLIA [id number] [place] [address] [place] ALT [Catalytic activity/Vol] 12 U/L Normal 7-38 [facility] Comment on above: Order Comment: Speci men Type: BLOOD SPECIMENOrdering Facility: [facility] Address: [address] [place] [address] Performed By: #### L CHILONF, 3015-05, ####[facility] LABCLIA [id number] [place] [id number] [place] Anion gap [Moles/Vol] 9 mmol/L Normal 8-15 [facility] Comment on above: Order Comment: Speci men Type: BLOOD SPECIMENOrdering Facility: [facility] Address: [address] [place] [address] Performed By: #### L IPNF, 3015-05, ####[facility] LABCLIA [id number] [place] [address] [place] AST [Catalytic activity/Vol] 26 U/L Normal 13-35 [facility] Comment on above: Order Comment: Speci men Type: BLOOD SPECIMENOrdering Facility: [facility] Address: [address] [place] [address] Performed By: #### L IPNF, 3015-05, ####[facility] LABCLIA [id number] [place] [address] [place] Bilirubin [Mass/Vol] 0.6 mg/dL Normal 0.2-1.3 [facility] Comment on above: Order Comment: Speci men Type: BLOOD SPECIMENOrdering Facility: [facility] Address: [address] [place] [address] Performed By: #### L IPNF, 3015-05, ####[facility] LABCLIA [id number] [place] [id number] [place] Calcium [Mass/Vol] 10.0 mg/dL Normal 8.5-10.2 [facility] Comment on above: Order Comment: Speci men Type: BLOOD SPECIMENOrdering Facility: [facility] Address: [address] [place] [address] Performed By: #### L IPNF, 6-3, 97802-3 ####[facility] LABCLIA [id number] [place] [address] [place] Chloride [Moles/Vol] 101 mmol/L Normal 98-107 [facility] Comment on above: Order Comment: Speci men Type: BLOOD SPECIMENOrdering Facility: [facility] Address: [address] [place] [address] Performed By: #### L IPNF, 6-3, 85666-0 ####[facility] LABCLIA [id number] [place] [address] [place] CO2 [Moles/Vol] 30 mmol/L Normal 22-30 [facility] Comment on above: Order Comment: Speci men Type: BLOOD SPECIMENOrdering Facility: [facility] Address: [address] [place] [address] Performed By: #### L IPNF, 6-3, 73728-7 ####[facility] LABCLIA [id number] [place] [address] [place] Creatinine [Mass/Vol] 0.93 mg/dL Normal 0.58-0.96 [facility] Comment on above: Order Comment: Speci men Type: BLOOD SPECIMENOrdering Facility: [facility] Address: [address] [place] [address] Performed By: #### L IPNF, 6-3, 10188-6 ####[facility] LABCLIA [id number] [place] [address] [place] Creatinine and Glomerular filtration rate.predicted panel (S/P/Bld) 60 mL/min/1.73m??? Normal >=60 [facility] Comment on above: Order Comment: Speci men Type: BLOOD SPECIMENOrdering Facility: [facility] Address: [address] [place] [address] Result Comment: Josey mated Glomerular Filtration Rate [...] GFR. Performed By: #### L MELVIN, 3015-3, ####[facility] LABIA [id number] [place] [address] [place] Glucose [Mass/Vol] 87 mg/dL Normal 74-99 [facility] Comment on above: Order Comment: Sima collado Type: BLOOD SPECIMENOrdering Facility: [facility] Address: [address] [place] [address] Result Comment: The [place] Diabetes Association (ADA) provides guidance for cutoff [...] Standards of Medical Care in Diabetes 2016, [place] Diabetes Association. Diabetes Care. 2016.39(Suppl 1). Performed By: #### L MELVIN, 3015-05, ####[facility] LABIA [id number] [place] [address] [place] Potassium [Moles/Vol] 4.7 mmol/L Normal 3.7-5.1 [facility] Comment on above: Order Comment: Sima collado Type: BLOOD SPECIMENOrdering Facility: [facility] Address: [address] [place] [address] Performed By: #### L MELVIN, 3015-05, ####[facility] LABCLIA [id number] [address] [address] [place] Protein [Mass/Vol] 7.0 g/dL Normal 6.3-8.0 [facility] Comment on above: Order Comment: Speci men Type: BLOOD SPECIMENOrdering Facility: [facility] Address: [address] [place] [address] Performed By: #### L IPNF, 3, ####[facility] LABIA [id number] [place] [address] [place] Sodium [Moles/Vol] 140 mmol/L Normal 136-144 [facility] Comment on above: Order Comment: Speci men Type: BLOOD SPECIMENOrdering Facility: [facility] Address: [address] [place] [address] Performed By: #### L IPNAGA, 3015-05, ####[facility] LABIA [id number] [place] [address] [place] Urea nitrogen [Mass/Vol] 13 mg/dL Normal 7-21 [facility] Comment on above: Order Comment: Speci men Type: BLOOD SPECIMENOrdering Facility: [facility] Address: [address] [place] [address] Performed By: #### L IPNF, 3015-05, ####[facility] LABIA [id number] [place] [address] [place] HbA1c (Bld)on 10-21-2023 Average glucose Estimated from glycated hemoglobin (Bld) [Mass/Vol] 111 mg/dL Normal [facility] Comment on above: Order Comment: Speci men Type: BLOOD SPECIMENOrdering Facility: [facility] Address: [address] [place] [address] Result Comment: eAG: (Estimated average glucose) is a calculated value from HgbA1c and is lead generation representative of the average blood glucose level in the last 2-3 month period. Performed By: #### 5 5454-3 ####[facility] LABCLIA [id number] [place] [address] [place] HbA1c (Bld) [Mass fraction] 5.5 % Normal 4.3-5.6 [facility] Comment on above: Order Comment: Speci men Type: BLOOD SPECIMENOrdering Facility: [facility] Address: [facility] [place] [address] Result Comment: [place] Diabetes Association guidelines indicate that patients with HgbA1c in the range 5.7-6.4% are at increased risk for development of diabetes, and intervention by lifestyle modification may be beneficial. HgbA1c greater or equal to 6.5% is considered diagnostic of diabetes. Performed By: #### 5 5454-3 ####[facility] LABCLIA [id number] [place] [address] [place] LIPID PANEL, NONFASTINGon Cholesterol [Mass/Vol] 145 mg/dL NINF - 200 mg/dL [facility] Comment on above: <200 mg/dL, Desirabl e 200-239 mg/dL, Borderline high >239 mg/dL, High HDL Cholesterol, Nonfasting 60 mg/dL 39 - PINF mg/dL [facility] Comment on above: 40-59 mg/dL, Accepta ble >59 mg/dL, High: Negative risk factor for coronary heart disease <40 mg/dL, Low: Positive risk factor for coronary heart disease LDL Cholesterol, Nonfasting 63 mg/dL NINF - 100 mg/dL [facility] Comment on above: <100 mg/dL, Optimal 100-129 mg/dL, Near optimal/above optimal 130-159 mg/dL, Borderline high 160-189 mg/dL, High >189 mg/dL, Very high Secondary prevention optimal LDL Cholesterol levels are recommended to be < 70 mg/dL LDL/HDL Ratio, Nonfasting 1.05 mg/dL NINF - 2.54 mg/dL [facility] Comment on above: Reference: 1. National Cholesterol Education Program ATP III Guideline At-A-Glance Quick Desk Reference: National Heart, Lung, and Blood [place]. National Institutes of Health. 2001: NIH Publication No. 01-3305. 2. An International Atherosclerosis Society position paper: global recommendations for the management of dyslipidemia: executive summary, Atherosclerosis. 2014: 232(2):410-413. Non HDL Cholesterol, Nonfasting 85 mg/dL NINF - 130 mg/dL [facility] Comment on above: <130 mg/dL, Optimal 130-159 mg/dL, Near optimal/above optimal 160-189 mg/dL, Borderline high 190-219 mg/dL, High >219 mg/dL, Very high Secondary prevention optimal non HDL Cholesterol levels are recommended to be <100 mg/dL Total Chol/HDL Ratio, Nonfasting 2.42 mg/dL NINF - 5.10 mg/dL [facility] Triglycerides, Nonfasting 110 mg/dL NINF - 150 mg/dL [facility] Comment on above: <150 mg/dL, Normal 150-199 mg/dL, Borderline high 200-499 mg/dL, High >499 mg/dL, Very high VLDL Cholesterol, Nonfasting 22 mg/dL NINF - 30 mg/dL [facility] Cholesterol [Mass/Vol] 145 mg/dL Normal <200 [facility] Comment on above: Order Comment: Speckenyon men Type: BLOOD SPECIMENOrdering Facility: [facility] Address: [address] [place] [address] Result Comment: <200 mg/dL, Desirable 200-239 mg/dL, Borderline high >239 mg/dL, High Performed By: #### L IPNF, 6-3, 49031-0 ####[facility] LABCLIA [id number] [place] [address] [place] HDL CHOLESTEROL, NF 60 mg/dL Normal >39 [facility] Comment on above: Order Comment: Sima collado Type: BLOOD SPECIMENOrdering Facility: [facility] Address: [address] [place] [address] Result Comment: 40-5 9 mg/dL, Acceptable >59 mg/dL, High: Negative risk factor for coronary heart disease <40 mg/dL, Low: Positive risk factor for coronary heart disease Performed By: #### L IPNF, 3016-3, 41859-6 ####[facility] LABCLIA [id number] [address] [place] LDL CHOLESTEROL, NF 63 mg/dL Normal <100 [facility] Comment on above: Order Comment: Sima collado Type: BLOOD SPECIMENOrdering Facility: [facility] Address: [address] [place] [address] Result Comment: <100 mg/dL, Optimal 100-129 mg/dL, Near optimal/above optimal 130-159 mg/dL, Borderline high 160-189 mg/dL, High >189 mg/dL, Very high Secondary prevention optimal LDL Cholesterol levels are recommended to be < 70 mg/dL Performed By: #### L MELVIN, 3016-3, 39879-8 ####[facility] LABCLIA [id number] [address] LDL/HDL RATIO, NF 1.05 mg/dL Normal <2.54 [facility] Comment on above: Order Comment: Sima collado Type: BLOOD SPECIMENOrdering Facility: [facility] Address: [address] [place] [address] Result Comment: Refdayana yadav: 1. National Cholesterol Education Program ATP III Guideline At-A-Glance Quick Desk Reference: National Heart, Lung, and Blood [place]. National Institutes of Health. 2001: NIH Publication No. 01-3305. 2. An International Atherosclerosis Society position paper: global recommendations for the management of dyslipidemia: executive summary, Atherosclerosis. 2014: 232(2):410-413. Performed By: #### L IPNAGA, 3016-3, 98898-8 ####[facility] LABCLIA [id number] [place] [address] [place] NON HDL CHOL, NF 85 mg/dL Normal <130 [facility] Comment on above: Order Comment: Sima collado Type: BLOOD SPECIMENOrdering Facility: [facility] Address: [address] [place] [address] Result Comment: <130 mg/dL, Optimal 130-159 mg/dL, Near optimal/above optimal 160-189 mg/dL, Borderline high 190-219 mg/dL, High >219 mg/dL, Very high Secondary prevention optimal non HDL Cholesterol levels are recommended to be <100 mg/dL Performed By: #### L IPNF, 6-3, 55473-3 ####[facility] LABCLIA [id number] [place] [address] [place] T CHOL/HDL RATIO NF 2.42 mg/dL Normal <5.10 [facility] Comment on above: Order Comment: Speci men Type: BLOOD SPECIMENOrdering Facility: [facility] Address: [address] [place] [address] Performed By: #### L MELVIN, 3015-3, 73254-6 ####[facility] LABCLIA [id number] [place] [address] [place] TRIGLYCERIDES, NF 110 mg/dL Normal <150 [facility] Comment on above: Order Comment: Speci men Type: BLOOD SPECIMENOrdering Facility: [facility] Address: [address] [place] [address] Result Comment: <150 mg/dL, Normal 150-199 mg/dL, Borderline high 200-499 mg/dL, High >499 mg/dL, Very high Performed By: #### L MELVIN, 3015-3, ####[facility] LABCLIA [id number] [place] [address] [place] VLDL CHOLESTEROL, NF 22 mg/dL Normal <30 [facility] Comment on above: Order Comment: Speci men Type: BLOOD SPECIMENOrdering Facility: [facility] Address: [address] [place] [address] Performed By: #### L IPNF, 3015-3, 63000-2 ####[facility] LABCLIA [id number] [place] [address] [place] No Panel Informationon 10-20 Interpretation and review of laboratory results Normal [facility] THYROID STIMULATING HORMONEo n 10-21-2023 TSH Qn 2.010 m[IU]/L [facility] TSH Qnon 10-21-2023 Interpretation and review of laboratory results Normal [facility] TSH SerPl-aCncon 10-21-2023 TSH Qn 2.010 m[IU]/L Normal 0.270-4.200 [facility] Comment on above: Order Comment: Speci men Type: BLOOD SPECIMENOrdering Facility: [facility] Address: [address] [place] [address] Performed By: #### L IPNF, 3016-3, 88489-7 ####[facility] LABCLIA [id number] [facility] [id number] STATES OF [facility] Absolute lymphocyte countOrd ered By: Samara Guzmán on 11-30-2022 Lymphocytes Auto (Unsp spec) [#/Vol] 1.06 10*3/uL 0.83-4.51 [facility] Basophil percentageOrdered B y: Samara Guzmán on 11-30-2022 Basophils/100 WBC (Bld) 0.7 % 0-1 [facility] Bilirubin [Mass/Vol] 0.70 mg/dL 0.20-1.00 [facility] Comment on above: For patients on eltr ombopag therapy, use of Dimension [place] TBIL is not recommended. Chloride [Moles/Vol] 108 mmol/L 98-107 [facility] Eosinophils/100 WBC (Bld) 6.2 % 0-5 [facility] Glucose [Mass/Vol] 90 mg/dL 74-106 [facility] Neutrophils (Bld) [#/Vol] 3.7 10*3/uL 2.0-7.7 [facility] Neutrophils/100 WBC (Bld) 65.9 % 47-70 [facility] Potassium [Moles/Vol] 4.4 mmol/L 3.5-5.1 [facility] Protein [Mass/Vol] 6.9 g/dL 6.4-8.2 [facility] Sodium [Moles/Vol] 140 mmol/L 136-145 [facility] WBC (Bld) [#/Vol] 5.7 10*3/uL 4.4-11.0 [facility] Blood erythrocytes count (nu mber/volume)Ordered By: Samara Guzmán on 11-30-2022 RBC (Bld) [#/Vol] 4.11 10*6/uL 4.2-5.4 [facility] Blood hemoglobin measurement (mass/volume)Ordered By: Samara Guzmán on 11-30-2022 Hemoglobin (Bld) [Mass/Vol] 13.2 g/dL 12.0-15.0 [facility] Blood lymphocytes/100 leukoc ytesOrdered By: Samara Guzmán on 11-30-2022 Lymphocytes/100 WBC (Bld) 18.7 % 19-41 [facility] Blood monocytes/100 leukocyt esOrdered By: [facility] Ramirez on 11-30-2022 Monocytes/100 WBC (Bld) 8.3 % 0-10 [facility] Blood platelet mean volumeOr dered By: Samarasalima Guzmán on 11-30-2022 Platelet mean volume (Bld) [Entitic vol] 9.1 fL 6.2-12.0 [facility] Determination of erythrocyte mean corpuscular volume (MCV)Ordered By: Samara Guzmán on 11-30-2022 MCV (RBC) [Entitic vol] 97.8 fL 81-99 [facility] Hematocrit Auto (Bld) [Volum e fraction]Ordered By: [facility] Ramirez on 11-30-2022 Hematocrit (Bld) [Volume fraction] 40.2 % 37-47 [facility] Laboratory - Chemistry and C hemistry - challengeOrdered By: [facility] Ramirez on 11-30-2022 ALP [Catalytic activity/Vol] 115 U/L 45-117 [facility] ALT [Catalytic activity/Vol] 22 U/L 13-56 [facility] CO2 [Moles/Vol] 31.0 mmol/L 21.0-32.0 [facility] Globulin (S) [Mass/Vol] 3.2 g/dL 2.2-4.2 [facility] Urea nitrogen/Creatinine [Mass ratio] 13.7 mg/mg 10-20 [facility] Laboratory - Hematology and Cell countsOrdered By: [facility] Ramirez on 11-30-2022 Erythrocyte distribution width (RBC) [Entitic vol] 43.8 fL 35.1-43.9 [facility] Erythrocyte distribution width (RBC) [Ratio] 12.2 % 11.6-14.6 [facility] Immature granulocytes/100 WBC (Bld) 0.200 % 0.0-0.9 [facility] Comment on above: IG% - Immature Granu locytes (promyelocytes, myelocytes and metamyelocytes) > 1% indicates that a LEFT SHIFT is Present. MCH (RBC) [Entitic mass] 32.1 pg 27.0-32.0 [facility] Nucleated RBC/100 WBC (Bld) [Ratio] 0 % 0-5 [facility] MCHC Auto (RBC) [Mass/Vol]Or dered By: Samara Guzmán on 11-30-2022 MCHC (RBC) [Mass/Vol] 32.8 g/dL 32-36 [facility] No Panel InformationOrdered By: Samara Guzmán on 11-30-2022 Estimated GFR (MDRD) Amer 66 mL/min >60 [facility] Comment on above: GFR Calc Estimated GFR (MDRD) Non-Af Amer 55 mL/min >60 [facility] Comment on above: Non- GFR Calc Platelets bldOrdered By: Kristen Guzmán on 11-30-2022 Platelets (Bld) [#/Vol] 208 10*3/uL 150-450 [facility] Serum or plasma albumin tayla urement (mass/volume)Ordered By: Samara Guzmán on 11-30-2022 Albumin [Mass/Vol] 3.7 g/dL 3.2-5.0 [facility] Serum or plasma albumin/glob ulin mass ratioOrdered By: Samara Guzmán on 11-30-2022 Albumin/Globulin [Mass ratio] 1.2 {ratio} 0.9-2.4 [facility] Serum or plasma calcium tayla urement (mass/volume)Ordered By: Samara Guzmán on 11-30-2022 Calcium [Mass/Vol] 9.0 mg/dL 8.5-10.1 [facility] Serum or plasma creatinine m easurement (mass/volume)Ordered By: Samara Guzmán on 11-30-2022 Creatinine [Mass/Vol] 1.02 mg/dL 0.55-1.02 [facility] Comment on above: The validity of the calculated GFR & GFRAA in patients over 70 years has not been determined. Clinical correlation is essential. Serum or plasma urea nitroge n measurement (mass/volume)Ordered By: Samara Guzmán on 11-30-2022 Urea nitrogen [Mass/Vol] 14 mg/dL 7-18 [facility] Thin prep Papanicolaou smear with manual screeningOrdered By: Samara Guzmán on 11-30-2022 Thin prep Papanicolaou smear with manual screening 22 U/L 15-37 [facility] Thin prep Papanicolaou smear with manual screening 1 5-15 [facility] Absolute lymphocyte countOrd ered By: Dr. Guzmán on 05-15-2022 Lymphocytes Auto (Unsp spec) [#/Vol] 1.17 10*3/uL 0.83-4.51 [facility] Basophil percentageOrdered B y: Dr. Guzmán on 05-15-2022 Basophils/100 WBC (Bld) 0.5 % 0-1 [facility] Bilirubin [Mass/Vol] 0.80 mg/dL 0.20-1.00 [facility] Comment on above: For patients on eltr ombopag therapy, use of Dimension [place] TBIL is not recommended. Chloride [Moles/Vol] 107 mmol/L 98-107 [facility] Eosinophils/100 WBC (Bld) 4.0 % 0-5 [facility] Glucose [Mass/Vol] 93 mg/dL 74-106 [facility] Neutrophils (Bld) [#/Vol] 3.8 10*3/uL 2.0-7.7 [facility] Neutrophils/100 WBC (Bld) 66.1 % 47-70 [facility] Potassium [Moles/Vol] 4.1 mmol/L 3.5-5.1 [facility] Protein [Mass/Vol] 7.2 g/dL 6.4-8.2 [facility] Sodium [Moles/Vol] 142 mmol/L 136-145 [facility] WBC (Bld) [#/Vol] 5.7 10*3/uL 4.4-11.0 [facility] Blood erythrocytes count (nu mber/volume)Ordered By: Dr. Guzmán on 05-15-2022 RBC (Bld) [#/Vol] 4.05 10*6/uL 4.2-5.4 [facility] Blood hemoglobin measurement (mass/volume)Ordered By: Dr. Guzmán on 05-15-2022 Hemoglobin (Bld) [Mass/Vol] 13.0 g/dL 12.0-15.0 [facility] Blood lymphocytes/100 leukoc ytesOrdered By: Dr. Guzmán on 05-15-2022 Lymphocytes/100 WBC (Bld) 20.6 % 19-41 [facility] Blood monocytes/100 leukocyt esOrdered By: Dr. Guzmán on 05-15-2022 Monocytes/100 WBC (Bld) 8.6 % 0-10 [facility] Blood platelet mean volumeOr dered By: Dr. Guzmán on 05-15-2022 Platelet mean volume (Bld) [Entitic vol] 9.7 fL 6.2-12.0 [facility] Determination of erythrocyte mean corpuscular volume (MCV)Ordered By: Dr. Guzmán on 05-15-2022 MCV (RBC) [Entitic vol] 98.8 fL 81-99 [facility] Hematocrit Auto (Bld) [Volum e fraction]Ordered By: Dr. Guzmán on 05-15-2022 Hematocrit (Bld) [Volume fraction] 40.0 % 37-47 [facility] Laboratory - Chemistry and C hemistry - challengeOrdered By: Dr. Guzmán on 05-15-2022 ALP [Catalytic activity/Vol] 66 U/L 45-117 [facility] ALT [Catalytic activity/Vol] 22 U/L 13-56 [facility] CO2 [Moles/Vol] 30.0 mmol/L 21.0-32.0 [facility] Globulin (S) [Mass/Vol] 3.3 g/dL 2.2-4.2 [facility] Urea nitrogen/Creatinine [Mass ratio] 11.4 mg/mg 10-20 [facility] Laboratory - Hematology and Cell countsOrdered By: Dr. Guzmán on 05-15-2022 Erythrocyte distribution width (RBC) [Entitic vol] 45.9 fL 35.1-43.9 [facility] Erythrocyte distribution width (RBC) [Ratio] 12.6 % 11.6-14.6 [facility] Immature granulocytes/100 WBC (Bld) 0.200 % 0.0-0.9 [facility] Comment on above: IG% - Immature Granu locytes (promyelocytes, myelocytes and metamyelocytes) > 1% indicates that a LEFT SHIFT is Present. MCH (RBC) [Entitic mass] 32.1 pg 27.0-32.0 [facility] Nucleated RBC/100 WBC (Bld) [Ratio] 0 % 0-5 [facility] MCHC Auto (RBC) [Mass/Vol]Or dered By: Dr. Guzmán on 05-15-2022 MCHC (RBC) [Mass/Vol] 32.5 g/dL 32-36 [facility] No Panel InformationOrdered By: Dr. Guzmán on 05-15-2022 Estimated GFR (MDRD) Amer 64 mL/min >60 [facility] Comment on above: GFR Calc Estimated GFR (MDRD) Non-Af Amer 53 mL/min >60 [facility] Comment on above: Non- GFR Calc Platelets bldOrdered By: Dr. Guzmán on 05-15-2022 Platelets (Bld) [#/Vol] 205 10*3/uL 150-450 [facility] Serum or plasma albumin tayla urement (mass/volume)Ordered By: Dr. Guzmán on 05-15-2022 Albumin [Mass/Vol] 3.9 g/dL 3.2-5.0 [facility] Serum or plasma albumin/glob ulin mass ratioOrdered By: Dr. Guzmán on 05-15-2022 Albumin/Globulin [Mass ratio] 1.2 {ratio} 0.9-2.4 [facility] Serum or plasma calcium tayla urement (mass/volume)Ordered By: Dr. Guzmán on 05-15-2022 Calcium [Mass/Vol] 9.6 mg/dL 8.5-10.1 [facility] Serum or plasma creatinine m easurement (mass/volume)Ordered By: Dr. Guzmán on 05-15-2022 Creatinine [Mass/Vol] 1.05 mg/dL 0.55-1.02 [facility] Comment on above: The validity of the calculated GFR & GFRAA in patients over 70 years has not been determined. Clinical correlation is essential. Serum or plasma urea nitroge n measurement (mass/volume)Ordered By: Dr. Guzmán on 05-15-2022 Urea nitrogen [Mass/Vol] 12 mg/dL 7-18 [facility] Thin prep Papanicolaou smear with manual screeningOrdered By: Dr. Guzmán on 05-15-2022 Thin prep Papanicolaou smear with manual screening 22 U/L 15-37 [facility] Thin prep Papanicolaou smear with manual screening 5 5-15 [facility] Ova and parasitesOrdered By: Valdemar Sterling on 05-02-2022 Ova and parasites identified LM Nom (Unsp spec) [facility] Absolute lymphocyte countOrd ered By: Dr. Espinal on 04-25-2022 Lymphocytes Auto (Unsp spec) [#/Vol] 1.12 10*3/uL 0.83-4.51 [facility] Basophil percentageOrdered B y: Dr. Espinal on 04-25-2022 Basophils/100 WBC (Bld) 0.6 % 0-1 [facility] Chloride [Moles/Vol] 110 mmol/L 98-107 [facility] Eosinophils/100 WBC (Bld) 3.3 % 0-5 [facility] Glucose [Mass/Vol] 101 mg/dL 74-106 [facility] Comment on above: Fasting Glucose resu lt from 100 to 125 mg/dL suggests IMPAIRED HOMEOSTASIS per A.D.A. criteria. Neutrophils (Bld) [#/Vol] 4.8 10*3/uL 2.0-7.7 [facility] Neutrophils/100 WBC (Bld) 69.2 % 47-70 [facility] Potassium [Moles/Vol] 3.7 mmol/L 3.5-5.1 [facility] Sodium [Moles/Vol] 141 mmol/L 136-145 [facility] WBC (Bld) [#/Vol] 6.9 10*3/uL 4.4-11.0 [facility] Blood erythrocytes count (nu mber/volume)Ordered By: Dr. Espinal on 04-25-2022 RBC (Bld) [#/Vol] 3.81 10*6/uL 4.2-5.4 [facility] Blood hemoglobin measurement (mass/volume)Ordered By: Dr. Espinal on 04-25-2022 Hemoglobin (Bld) [Mass/Vol] 12.1 g/dL 12.0-15.0 [facility] Blood lymphocytes/100 leukoc ytesOrdered By: Dr. Espinal on 04-25-2022 Lymphocytes/100 WBC (Bld) 16.2 % 19-41 [facility] Blood monocytes/100 leukocyt esOrdered By: Dr. Espinal on 04-25-2022 Monocytes/100 WBC (Bld) 10.3 % 0-10 [facility] Blood platelet mean volumeOr dered By: Dr. Espinal on 04-25-2022 Platelet mean volume (Bld) [Entitic vol] 9.3 fL 6.2-12.0 [facility] Clostridium difficile detect ion by polymerase chain reactionOrdered By: Valdemar Sterling on 04-25-2022 C. difficile DNA JONI+probe Ql (Unsp spec) [facility] Determination of erythrocyte mean corpuscular volume (MCV)Ordered By: Dr. Espinal on 04-25-2022 MCV (RBC) [Entitic vol] 96.3 fL 81-99 [facility] EP PanelOrdered By: Valdemar Sterling on 04-25-2022 Gastrointestinal pathogens panel JONI+probe (Stl) [facility] Hematocrit Auto (Bld) [Volum e fraction]Ordered By: Dr. Espinal on 04-25-2022 Hematocrit (Bld) [Volume fraction] 36.7 % 37-47 [facility] Laboratory - Chemistry and C hemistry - challengeOrdered By: Dr. Espinal on 04-25-2022 CO2 [Moles/Vol] 27.0 mmol/L 21.0-32.0 [facility] Urea nitrogen/Creatinine [Mass ratio] 11.4 mg/mg 10-20 [facility] Laboratory - Hematology and Cell countsOrdered By: Dr. Espinal on 04-25-2022 Erythrocyte distribution width (RBC) [Entitic vol] 41.6 fL 35.1-43.9 [facility] Erythrocyte distribution width (RBC) [Ratio] 11.9 % 11.6-14.6 [facility] Immature granulocytes/100 WBC (Bld) 0.400 % 0.0-0.9 [facility] Comment on above: IG% - Immature Granu locytes (promyelocytes, myelocytes and metamyelocytes) > 1% indicates that a LEFT SHIFT is Present. MCH (RBC) [Entitic mass] 31.8 pg 27.0-32.0 [facility] Nucleated RBC/100 WBC (Bld) [Ratio] 0 % 0-5 [facility] MCHC Auto (RBC) [Mass/Vol]Or dered By: Dr. Espinal on 04-25-2022 MCHC (RBC) [Mass/Vol] 33.0 g/dL 32-36 [facility] No Panel InformationOrdered By: Dr. Espinal on 04-25-2022 Estimated Creatinine Clearance Calc 29.65 ml/min [facility] Estimated GFR (MDRD) Amer 70 mL/min >60 [facility] Comment on above: GFR Calc Estimated GFR (MDRD) Non-Af Amer 58 mL/min >60 [facility] Comment on above: Non- GFR Calc Platelets bldOrdered By: Dr. Espinal on 04-25-2022 Platelets (Bld) [#/Vol] 227 10*3/uL 150-450 [facility] Serum or plasma calcium tayla urement (mass/volume)Ordered By: Dr. Espinal on 04-25-2022 Calcium [Mass/Vol] 9.0 mg/dL 8.5-10.1 [facility] Serum or plasma creatinine m easurement (mass/volume)Ordered By: Dr. Espinal on 04-25-2022 Creatinine [Mass/Vol] 0.97 mg/dL 0.55-1.02 [facility] Comment on above: The validity of the calculated GFR & GFRAA in patients over 70 years has not been determined. Clinical correlation is essential. Serum or plasma urea nitroge n measurement (mass/volume)Ordered By: Dr. Espinal on 04-25-2022 Urea nitrogen [Mass/Vol] 11 mg/dL 7-18 [facility] Stool lactoferrin detection by immunoassayOrdered By: Valdemar Sterling on 04-25-2022 Lactoferrin IA Ql (Stl) [facility] Thin prep Papanicolaou smear with manual screeningOrdered By: Dr. Espinal on 04-25-2022 Thin prep Papanicolaou smear with manual screening 4 5-15 [facility] Basophil percentageOrdered B y: Dr. Powell on 04-24-2022 Bilirubin [Mass/Vol] 0.40 mg/dL 0.20-1.00 [facility] Comment on above: For patients on eltr ombopag therapy, use of Dimension [place] TBIL is not recommended. Protein [Mass/Vol] 6.7 g/dL 6.4-8.2 [facility] Direct bilirubinOrdered By: Dr. Powell on 04-24-2022 Bilirubin.direct [Mass/Vol] 0.12 mg/dL 0.00-0.30 [facility] INR in Blood by Coagulation assayOrdered By: Dr. Powell on 04-24-2022 INR Coag (Bld) [Relative time] 1.2 {INR} [facility] Laboratory - Chemistry and C hemistry - challengeOrdered By: Dr. Powell on 04-24-2022 ALP [Catalytic activity/Vol] 61 U/L 45-117 [facility] ALT [Catalytic activity/Vol] 19 U/L 13-56 [facility] Globulin (S) [Mass/Vol] 3.2 g/dL 2.2-4.2 [facility] Laboratory - Chemistry and C hemistry - challengeOrdered By: Dr. Espinal on 04-24-2022 Magnesium [Mass/Vol] 2.4 mg/dL 1.6-2.6 [facility] Comment on above: Slight Hemolysis, Re sult may be falsely increased. Laboratory - CoagulationOrde red By: Dr. Powell on 04-24-2022 aPTT Coag (Bld) [Time] 28.7 s 24.1-36.2 [facility] PT Coag (PPP) [Time] 14.5 s 11.7-14.9 [facility] Serum or plasma albumin tayla urement (mass/volume)Ordered By: Dr. Powell on 04-24-2022 Albumin [Mass/Vol] 3.5 g/dL 3.2-5.0 [facility] Thin prep Papanicolaou smear with manual screeningOrdered By: Dr. Powell on 04-24-2022 Thin prep Papanicolaou smear with manual screening 24 U/L 15-37 [facility] Comment on above: Slight Hemolysis, Re sult may be falsely increased. MRI BRAIN WO IVCONon 023 [facility] Absolute lymphocyte countOrd ered By: Dr. Dubon on 03-09-2022 Lymphocytes Auto (Unsp spec) [#/Vol] 0.99 10*3/uL 0.83-4.51 [facility] Basophil percentageOrdered B y: Dr. Dubon on 03-09-2022 Basophils/100 WBC (Bld) 0.3 % 0-1 [facility] Chloride [Moles/Vol] 106 mmol/L 98-107 [facility] Eosinophils/100 WBC (Bld) 2.1 % 0-5 [facility] Glucose [Mass/Vol] 181 mg/dL 74-106 [facility] Comment on above: Fasting Glucose resu lt greater than or equal to 126 mg/dL suggests DIABETES MELLITUS per A.D.A. criteria. Neutrophils (Bld) [#/Vol] 6.1 10*3/uL 2.0-7.7 [facility] Neutrophils/100 WBC (Bld) 78.5 % 47-70 [facility] Potassium [Moles/Vol] 3.6 mmol/L 3.5-5.1 [facility] Sodium [Moles/Vol] 140 mmol/L 136-145 [facility] WBC (Bld) [#/Vol] 7.8 10*3/uL 4.4-11.0 [facility] Blood erythrocytes count (nu mber/volume)Ordered By: Dr. Dubon on 03-09-2022 RBC (Bld) [#/Vol] 3.98 10*6/uL 4.2-5.4 [facility] Blood hemoglobin measurement (mass/volume)Ordered By: Dr. Dubon on 03-09-2022 Hemoglobin (Bld) [Mass/Vol] 12.7 g/dL 12.0-15.0 [facility] Blood lymphocytes/100 leukoc ytesOrdered By: Dr. Dubon on 03-09-2022 Lymphocytes/100 WBC (Bld) 12.7 % 19-41 [facility] Blood monocytes/100 leukocyt esOrdered By: Dr. Dubon on 03-09-2022 Monocytes/100 WBC (Bld) 5.6 % 0-10 [facility] Blood platelet mean volumeOr dered By: Dr. Dubon on 03-09-2022 Platelet mean volume (Bld) [Entitic vol] 9.0 fL 6.2-12.0 [facility] Determination of erythrocyte mean corpuscular volume (MCV)Ordered By: Dr. Dubon on 03-09-2022 MCV (RBC) [Entitic vol] 94.7 fL 81-99 [facility] Hematocrit Auto (Bld) [Volum e fraction]Ordered By: Dr. Dubon on 03-09-2022 Hematocrit (Bld) [Volume fraction] 37.7 % 37-47 [facility] Laboratory - Chemistry and C hemistry - challengeOrdered By: Dr. Dubon on 03-09-2022 CO2 [Moles/Vol] 29.0 mmol/L 21.0-32.0 [facility] Urea nitrogen/Creatinine [Mass ratio] 16.4 mg/mg 10-20 [facility] Laboratory - Hematology and Cell countsOrdered By: Dr. Dubon on 03-09-2022 Erythrocyte distribution width (RBC) [Entitic vol] 41.6 fL 35.1-43.9 [facility] Erythrocyte distribution width (RBC) [Ratio] 11.9 % 11.6-14.6 [facility] Immature granulocytes/100 WBC (Bld) 0.800 % 0.0-0.9 [facility] Comment on above: IG% - Immature Granu locytes (promyelocytes, myelocytes and metamyelocytes) > 1% indicates that a LEFT SHIFT is Present. MCH (RBC) [Entitic mass] 31.9 pg 27.0-32.0 [facility] Nucleated RBC/100 WBC (Bld) [Ratio] 0 % 0-5 [facility] MCHC Auto (RBC) [Mass/Vol]Or dered By: Dr. Dubon on 03-09-2022 MCHC (RBC) [Mass/Vol] 33.7 g/dL 32-36 [facility] No Panel InformationOrdered By: Dr. Dubon on 03-09-2022 Estimated Creatinine Clearance Calc 27.95 ml/min [facility] Estimated GFR (MDRD) Amer 61 mL/min >60 [facility] Comment on above: GFR Calc Estimated GFR (MDRD) Non-Af Amer 50 mL/min >60 [facility] Comment on above: Non- GFR Calc Platelets bldOrdered By: Dr. Dubon on 03-09-2022 Platelets (Bld) [#/Vol] 195 10*3/uL 150-450 [facility] Serum or plasma calcium tayla urement (mass/volume)Ordered By: Dr. Dubon on 03-09-2022 Calcium [Mass/Vol] 8.6 mg/dL 8.5-10.1 [facility] Serum or plasma creatinine m easurement (mass/volume)Ordered By: Dr. Dubon on 03-09-2022 Creatinine [Mass/Vol] 1.10 mg/dL 0.55-1.02 [facility] Comment on above: The validity of the calculated GFR & GFRAA in patients over 70 years has not been determined. Clinical correlation is essential. Serum or plasma urea nitroge n measurement (mass/volume)Ordered By: Dr. Dubon on 03-09-2022 Urea nitrogen [Mass/Vol] 18 mg/dL 7-18 [facility] Thin prep Papanicolaou smear with manual screeningOrdered By: Dr. Dubon on 03-09-2022 Thin prep Papanicolaou smear with manual screening 5 5-15 [facility] Absolute lymphocyte counton 12-24-2021 Lymphocytes Auto (Unsp spec) [#/Vol] 1.08 10*3/uL 0.83-4.51 [facility] Work Phone: Basophil percentageon 2021 Basophils/100 WBC (Bld) 0.6 % 0-1 [facility] Work Phone: Bilirubin [Mass/Vol] 0.60 mg/dL 0.20-1.00 [facility] Work Phone: Comment on above: For patients on eltr ombopag therapy, use of Dimension [place] TBIL is not recommended. Chloride [Moles/Vol] 104 mmol/L 98-107 [facility] Work Phone: Eosinophils/100 WBC (Bld) 3.6 % 0-5 [facility] Work Phone: Glucose [Mass/Vol] 123 mg/dL 74-106 [facility] Work Phone: Comment on above: Fasting Glucose resu lt from 100 to 125 mg/dL suggests IMPAIRED HOMEOSTASIS per A.D.A. criteria. Neutrophils (Bld) [#/Vol] 3.5 10*3/uL 2.0-7.7 [facility] Work Phone: Neutrophils/100 WBC (Bld) 65.7 % 47-70 [facility] Work Phone: Potassium [Moles/Vol] 4.1 mmol/L 3.5-5.1 [facility] Work Phone: Protein [Mass/Vol] 6.8 g/dL 6.4-8.2 [facility] Work Phone: Sodium [Moles/Vol] 140 mmol/L 136-145 [facility] Work Phone: WBC (Bld) [#/Vol] 5.3 10*3/uL 4.4-11.0 [facility] Work Phone: Blood erythrocytes count (nu mber/volume)on 12-24-2021 RBC (Bld) [#/Vol] 4.08 10*6/uL 4.2-5.4 [facility] Work Phone: Blood hemoglobin measurement (mass/volume)on 12-24-2021 Hemoglobin (Bld) [Mass/Vol] 13.3 g/dL 12.0-15.0 [facility] Work Phone: Blood lymphocytes/100 leukoc yteson 12-24-2021 Lymphocytes/100 WBC (Bld) 20.6 % 19-41 [facility] Work Phone: [phone] Blood monocytes/100 leukocyt eson 12-24-2021 Monocytes/100 WBC (Bld) 9.3 % 0-10 [facility] Work Phone: Blood platelet mean volumeon 12-24-2021 Platelet mean volume (Bld) [Entitic vol] 10.2 fL 6.2-12.0 [facility] Work Phone: Determination of erythrocyte mean corpuscular volume (MCV)on 12-24-2021 MCV (RBC) [Entitic vol] 97.1 fL 81-99 [facility] Work Phone: [phone] Hematocrit Auto (Bld) [Volum e fraction]on 12-24-2021 Hematocrit (Bld) [Volume fraction] 39.6 % 37-47 [facility] Work Phone: [phone] Laboratory - Chemistry and C hemistry - challengeon 12-24-2021 ALP [Catalytic activity/Vol] 64 U/L 45-117 [facility] Work Phone: ALT [Catalytic activity/Vol] 22 U/L 13-56 [facility] Work Phone: CO2 [Moles/Vol] 29.0 mmol/L 21.0-32.0 [facility] Work Phone: Globulin (S) [Mass/Vol] 3.2 g/dL 2.2-4.2 [facility] Work Phone: Urea nitrogen/Creatinine [Mass ratio] 9.6 mg/mg 10-20 [facility] Work Phone: Laboratory - Hematology and Cell countson 12-24-2021 Erythrocyte distribution width (RBC) [Entitic vol] 43.5 fL 35.1-43.9 [facility] Work Phone: Erythrocyte distribution width (RBC) [Ratio] 12.2 % 11.6-14.6 [facility] Work Phone: Immature granulocytes/100 WBC (Bld) 0.200 % 0.0-0.9 [facility] Work Phone: Comment on above: IG% - Immature Granu locytes (promyelocytes, myelocytes and metamyelocytes) > 1% indicates that a LEFT SHIFT is Present. MCH (RBC) [Entitic mass] 32.6 pg 27.0-32.0 [facility] Work Phone: Nucleated RBC/100 WBC (Bld) [Ratio] 0 % 0-5 [facility] Work Phone: MCHC Auto (RBC) [Mass/Vol]on 12-24-2021 MCHC (RBC) [Mass/Vol] 33.6 g/dL 32-36 [facility] Work Phone: No Panel Informationon 12-24 Estimated GFR (MDRD) Amer 58 mL/min >60 [facility] Work Phone: Comment on above: GFR Calc Estimated GFR (MDRD) Non-Af Amer 48 mL/min >60 [facility] Work Phone: Comment on above: Non- GFR Calc Platelets bldon 12-24-2021 Platelets (Bld) [#/Vol] 186 10*3/uL 150-450 [facility] Work Phone: Serum or plasma albumin tayla urement (mass/volume)on 12-24-2021 Albumin [Mass/Vol] 3.6 g/dL 3.2-5.0 [facility] Work Phone: Serum or plasma albumin/glob ulin mass ratioon 12-24-2021 Albumin/Globulin [Mass ratio] 1.1 {ratio} 0.9-2.4 [facility] Work Phone: Serum or plasma calcium tayla urement (mass/volume)on 12-24-2021 Calcium [Mass/Vol] 9.8 mg/dL 8.5-10.1 [facility] Work Phone: Serum or plasma creatinine m easurement (mass/volume)on 12-24-2021 Creatinine [Mass/Vol] 1.15 mg/dL 0.55-1.02 [facility] Work Phone: Comment on above: The validity of the calculated GFR & GFRAA in patients over 70 years has not been determined. Clinical correlation is essential. Serum or plasma urea nitroge n measurement (mass/volume)on 12-24-2021 Urea nitrogen [Mass/Vol] 11 mg/dL 7-18 [facility] Work Phone: Thin prep Papanicolaou smear with manual screeningon 12-24-2021 Thin prep Papanicolaou smear with manual screening 20 U/L 15-37 [facility] Work Phone: Thin prep Papanicolaou smear with manual screening 7 5-15 [facility] Work Phone: Absolute lymphocyte counton 06-25-2021 Lymphocytes Auto (Unsp spec) [#/Vol] 1.11 10*3/uL 0.83-4.51 [facility] Work Phone: Basophil percentageon 2021 Basophils/100 WBC (Bld) 0.8 % 0-1 [facility] Work Phone: Bilirubin [Mass/Vol] 0.60 mg/dL 0.20-1.00 [facility] Work Phone: Comment on above: For patients on eltr ombopag therapy, use of Dimension [place] TBIL is not recommended. Chloride [Moles/Vol] 109 mmol/L 98-107 [facility] Work Phone: Eosinophils/100 WBC (Bld) 3.1 % 0-5 [facility] Work Phone: Glucose [Mass/Vol] 83 mg/dL 74-106 [facility] Work Phone: Neutrophils (Bld) [#/Vol] 3.4 10*3/uL 2.0-7.7 [facility] Work Phone: [phone] Neutrophils/100 WBC (Bld) 64.4 % 47-70 [facility] Work Phone: [phone] Potassium [Moles/Vol] 3.9 mmol/L 3.5-5.1 [facility] Work Phone: [phone] Protein [Mass/Vol] 6.8 g/dL 6.4-8.2 [facility] Work Phone: [phone] Sodium [Moles/Vol] 142 mmol/L 136-145 [facility] Work Phone: WBC (Bld) [#/Vol] 5.2 10*3/uL 4.4-11.0 [facility] Work Phone: Blood erythrocytes count (nu mber/volume)on 06-25-2021 RBC (Bld) [#/Vol] 4.01 10*6/uL 4.2-5.4 [facility]: Blood hemoglobin measurement (mass/volume)on 06-25-2021 Hemoglobin (Bld) [Mass/Vol] 12.8 g/dL 12.0-15.0 [facility] Work Phone: Blood lymphocytes/100 leukoc yteson 06-25-2021 Lymphocytes/100 WBC (Bld) 21.2 % 19-41 [facility] Work Phone: Blood monocytes/100 leukocyt eson 06-25-2021 Monocytes/100 WBC (Bld) 10.3 % 0-10 [facility] Work Phone: Blood platelet mean volumeon 06-25-2021 Platelet mean volume (Bld) [Entitic vol] 10.0 fL 6.2-12.0 [facility] Work Phone: Determination of erythrocyte mean corpuscular volume (MCV)on 06-25-2021 MCV (RBC) [Entitic vol] 97.0 fL 81-99 [facility] Work Phone: Hematocrit Auto (Bld) [Volum e fraction]on 06-25-2021 Hematocrit (Bld) [Volume fraction] 38.9 % 37-47 [facility] Work Phone: Laboratory - Chemistry and C hemistry - challengeon 06-25-2021 ALP [Catalytic activity/Vol] 60 U/L 45-117 [facility] Work Phone: ALT [Catalytic activity/Vol] 21 U/L 13-56 [facility] Work Phone: CO2 [Moles/Vol] 28.0 mmol/L 21.0-32.0 [facility] Work Phone: Globulin (S) [Mass/Vol] 3.2 g/dL 2.2-4.2 [facility] Work Phone: Urea nitrogen/Creatinine [Mass ratio] 13.6 mg/mg 10-20 [facility] Work Phone: Laboratory - Hematology and Cell countson 06-25-2021 Erythrocyte distribution width (RBC) [Entitic vol] 44.0 fL 35.1-43.9 [facility] Work Phone: Erythrocyte distribution width (RBC) [Ratio] 12.2 % 11.6-14.6 [facility] Work Phone: Immature granulocytes/100 WBC (Bld) 0.200 % 0.0-0.9 [facility] Work Phone: Comment on above: IG% - Immature Granu locytes (promyelocytes, myelocytes and metamyelocytes) > 1% indicates that a LEFT SHIFT is Present. MCH (RBC) [Entitic mass] 31.9 pg 27.0-32.0 [facility] Work Phone: Nucleated RBC/100 WBC (Bld) [Ratio] 0 % 0-5 [facility] Work Phone: MCHC Auto (RBC) [Mass/Vol]on 06-25-2021 MCHC (RBC) [Mass/Vol] 32.9 g/dL 32-36 [facility] Work Phone: No Panel Informationon 06-25 Estimated GFR (MDRD) Amer 66 mL/min >60 [facility] Work Phone: Comment on above: GFR Calc Estimated GFR (MDRD) Non-Af Amer 54 mL/min >60 [facility] Work Phone: Comment on above: Non- GFR Calc Platelets bldon 06-25-2021 Platelets (Bld) [#/Vol] 209 10*3/uL 150-450 [facility] Work Phone: Serum or plasma albumin tayla urement (mass/volume)on 06-25-2021 Albumin [Mass/Vol] 3.6 g/dL 3.2-5.0 [facility] Work Phone: Serum or plasma albumin/glob ulin mass ratioon 06-25-2021 Albumin/Globulin [Mass ratio] 1.1 {ratio} 0.9-2.4 [facility] Work Phone: Serum or plasma calcium tayla urement (mass/volume)on 06-25-2021 Calcium [Mass/Vol] 9.0 mg/dL 8.5-10.1 [facility] Work Phone: Serum or plasma creatinine m easurement (mass/volume)on 06-25-2021 Creatinine [Mass/Vol] 1.03 mg/dL 0.55-1.02 [facility] Work Phone: Comment on above: The validity of the calculated GFR & GFRAA in patients over 70 years has not been determined. Clinical correlation is essential. Serum or plasma urea nitroge n measurement (mass/volume)on 06-25-2021 Urea nitrogen [Mass/Vol] 14 mg/dL 7-18 [facility] Work Phone: Thin prep Papanicolaou smear with manual screeningon 06-25-2021 Thin prep Papanicolaou smear with manual screening 20 U/L 15-37 [facility] Work Phone: Thin prep Papanicolaou smear with manual screening 5 5-15 [facility] Work Phone: Federico 12-13-2016 [facility] Telephone (CDLBME) ----GUICHO MARTINEZ ([id number]) 1935 F TDate Time Provider [id number]/13/17 HUE KHAN (HERB) SELAME During your visit [...] - Fully AssessedReason for Visit: Reminder Call [[id number]]Prescriptions as of 12/13/2016 Sig: MAGNESIUM 200 MG [...] FOR* Status:Closed by HUE KHAN on 12/13/16 [facility] Vital Signs Date Time Vital Sign Value Performing Clinician Facility 05-19-2024 16:25-0400 Body mass index (BMI) [Ratio] 16.41 kg/m2 Hue FULLER-C Work Phone: [facility] 05-19-2024 16:25-0400 Body weight 41.37 kg Hue FULLER-C Work Phone: [facility] [place] 05-19-2024 16:25-0400 Diastolic blood pressure 68 mm[Hg] Hue FULLER-C Work Phone: [facility] [place] 05-19-2024 16:25-0400 Heart rate 61 /min Hue FULLER-C Work Phone: [facility] [place] 05-19-2024 16:25-0400 SaO2% (BldA) [Mass fraction] 97 % Hue FULLER-C Work Phone: [facility] [place] 05-19-2024 16:25-0400 Systolic blood pressure 150 mm[Hg] Hue FULLER-C Work Phone: [facility] [place] 04-23-2024 13:18-0500 Body mass index (BMI) [Ratio] 16.76 kg/m2 Carolyn FULLER-Cade Work Phone: [facility] 04-23-2024 13:18-0500 Body temperature 97.5 [degF] Carolyn FULLER-C Work Phone: [facility] 04-23-2024 13:18-0500 Body weight 42.24 kg Carolyn Asher PA-C Work Phone: [facility] [place] 04-23-2024 13:18-0500 Diastolic blood pressure 70 mm[Hg] Carolyn Asher PA-C Work Phone: [facility] 04-23-2024 13:18-0500 Heart rate 62 /min Carolyn Asher PA-C Work Phone: [facility] [place] 04-23-2024 13:18-0500 Respiratory rate 16 /min Carolyn Asher PA-C Work Phone: [facility] [place] 04-23-2024 13:18-0500 SaO2% (BldA) [Mass fraction] 100 % Carolyn Asher PA-C Work Phone: [facility] 04-23-2024 13:18-0500 Systolic blood pressure 120 mm[Hg] Carolyn Asher PA-C Work Phone: [facility] 03-30-2024 09:43-0500 Body mass index (BMI) [Ratio] 16.96 kg/m2 Carolyn Asher PA-C Work Phone: [facility] [place] 03-30-2024 09:43-0500 Body temperature 97.39 [degF] Carolyn Asher PA-C Work Phone: [facility] 03-30-2024 09:43-0500 Body weight 42.75 kg Carolyn Asher PA-C Work Phone: [facility] 03-30-2024 09:43-0500 Diastolic blood pressure 68 mm[Hg] Carolyn Asher PA-C Work Phone: [facility] [place] 03-30-2024 09:43-0500 Heart rate 67 /min Carolyn Asher PA-C Work Phone: [facility] 03-30-2024 09:43-0500 Respiratory rate 16 /min Carolyn Asher PA-C Work Phone: [facility] 03-30-2024 09:43-0500 SaO2% (BldA) [Mass fraction] 99 % Carolyn Asher PA-C Work Phone: [facility] [place] 03-30-2024 09:43-0500 Systolic blood pressure 137 mm[Hg] Carolyn Asher PA-C Work Phone: [facility] [place] 03-04-2024 17:35-0500 Body mass index (BMI) [Ratio] 16.92 kg/m2 Fauzia Wagner SENIOR CLINICAL PROJECT MANAGER.PRINT PROJECT MANAGER Work Phone: [facility] [place] 03-04-2024 17:35-0500 Body weight 42.64 kg Fauzia Wagner SENIOR CLINICAL PROJECT MANAGER.PRINT PROJECT MANAGER Work Phone: [facility] [place] 03-04-2024 17:35-0500 Diastolic blood pressure 77 mm[Hg] Fauzia Wagner SENIOR CLINICAL PROJECT MANAGER.PRINT PROJECT MANAGER Work Phone: [facility] 03-04-2024 17:35-0500 Heart rate 79 /min Fauzia Wagner SENIOR CLINICAL PROJECT MANAGER.PRINT PROJECT MANAGER Work Phone: [facility] 03-04-2024 17:35-0500 Systolic blood pressure 146 mm[Hg] Fauzia Wagner SENIOR CLINICAL PROJECT MANAGER.PRINT PROJECT MANAGER Work Phone: [facility] 11-11-2023 15:37-0400 Body mass index (BMI) [Ratio] 16.67 kg/m2 Hue Queener PA-C Work Phone: [facility] [place] 11-11-2023 15:37-0400 Body weight 42 kg Hue Vargheseer PA-C Work Phone: [facility] [place] 11-11-2023 15:37-0400 Diastolic blood pressure 68 mm[Hg] Hue Vargheseer PA-C Work Phone: [facility] [place] 11-11-2023 15:37-0400 Heart rate 68 /min Hue Queener PA-C Work Phone: [facility] [place] 11-11-2023 15:37-0400 Respiratory rate 16 /min Hue Queener PA-C Work Phone: [facility] [place] 11-11-2023 15:37-0400 SaO2% (BldA) [Mass fraction] 98 % Hue Torres PA-C Work Phone: [facility] [place] 11-11-2023 15:37-0400 Systolic blood pressure 111 mm[Hg] Hue Torres PA-C Work Phone: [facility] [place] 10-21-2023 13:09-0400 Body height 158.8 cm Bairon Torres MD Work Phone: [facility] [place] 10-21-2023 13:09-0400 Body mass index (BMI) [Ratio] 16.38 kg/m2 Bairon Torres MD Work Phone: [facility] 10-21-2023 13:09-0400 Body weight 41.28 kg Bairon Torres MD Work Phone: [facility] [place] 10-21-2023 13:09-0400 Diastolic blood pressure 72 mm[Hg] Bairon Torres MD Work Phone: [facility] 10-21-2023 13:09-0400 Heart rate 64 /min Bairon Torres MD Work Phone: [facility] 10-21-2023 13:09-0400 Respiratory rate 14 /min Bairon Torres MD Work Phone: [facility] 10-21-2023 13:09-0400 Systolic blood pressure 128 mm[Hg] Bairon Torres MD Work Phone: [facility] [place] 09-04-2022 17:05-0400 Body weight 43.55 kg Bairon Torres MD Work Phone: [facility] [place] 09-04-2022 17:05-0400 Diastolic blood pressure 84 mm[Hg] Bairon Torres MD Work Phone: [facility] [place] 09-04-2022 17:05-0400 Heart rate 74 /min Bairon Torres MD Work Phone: [facility] [place] 09-04-2022 17:05-0400 Respiratory rate 16 /min Bairon Torres MD Work Phone: [facility] [place] 09-04-2022 17:05-0400 Systolic blood pressure 138 mm[Hg] Bairon Torres MD Work Phone: [facility] 06-21-2022 15:43-0400 Body temperature 97 [degF] Josue Gomez Jr., MD Work Phone: [facility] [place] 06-21-2022 15:43-0400 Body weight 43.55 kg Josue Gomez Jr., MD Work Phone: [facility] [place] 06-21-2022 15:43-0400 Diastolic blood pressure 56 mm[Hg] Josue Gomez Jr., MD Work Phone: [facility] [place] 06-21-2022 15:43-0400 Heart rate 74 /min Josue Gomez Jr., MD Work Phone: [facility] 06-21-2022 15:43-0400 Respiratory rate 16 /min Josue Gomez Jr., MD Work Phone: [facility] [place] 06-21-2022 15:43-0400 SaO2% (BldA) [Mass fraction] 99 % Josue Gomez Jr., MD Work Phone: [facility] 06-21-2022 15:43-0400 Systolic blood pressure 129 mm[Hg] Josue Gomez Jr., MD Work Phone: [facility] 05-08-2022 12:55-0500 Body weight 44 kg Bairon Torres MD Work Phone: [facility] 05-08-2022 12:55-0500 Diastolic blood pressure 60 mm[Hg] Bairon Torres MD Work Phone: [facility] 05-08-2022 12:55-0500 Heart rate 80 /min Bairon Torres MD Work Phone: [facility] 05-08-2022 12:55-0500 Systolic blood pressure 124 mm[Hg] Bairon Torres MD Work Phone: [facility] 04-25-2022 14:42-0500 Body height 157.[address] Bairon Torres Work Phone: [facility] 04-25-2022 14:42-0500 Body weight 42.[address] Bairon Torres Work Phone: [facility] 04-25-2022 13:04-0500 Body temperature 97.7 [degF] Dr. Bairon Torres Work Phone: [facility] 04-25-2022 13:04-0500 Diastolic blood pressure 63 mm[Hg] Dr. Bairon Torres Work Phone: [phone] [place] [address] 04-25-2022 13:04-0500 Heart rate 75 /min Dr. Bairon Torres Work Phone: 4(592)275-671642 [place] [address] 04-25-2022 13:04-0500 Respiratory rate 16 /min Dr. Bairon Torres Work Phone: 3(418)492-103842 [place] [address] 04-25-2022 13:04-0500 SaO2% (BldA) [Mass fraction] 95 % Dr. Bairon Torres Work Phone: [facility] 04-25-2022 13:04-0500 Systolic blood pressure 136 mm[Hg] Dr. Bairon Torres Work Phone: [facility] 04-25-2022 09:51-0500 Inhaled oxygen flow rate 2 L/min Dr. Bairon Torres Work Phone: [facility] 04-25-2022 06:00-0500 Body mass index (BMI) [Ratio] 17.1 kg/m2 Dr. Bairon Torres Work Phone: [facility] 03-11-2022 04:15-0500 Diastolic blood pressure 53 mm[Hg] [facility] 03-11-2022 04:15-0500 Heart rate 76 /min [facility] 03-11-2022 04:15-0500 Respiratory rate 18 /min [facility] 03-11-2022 04:15-0500 SaO2% (BldA) [Mass fraction] 97 % [facility] 03-11-2022 04:15-0500 Systolic blood pressure 141 mm[Hg] [facility] 03-11-2022 01:53-0500 Body height 157.48 cm [facility] Work Phone: 03-11-2022 01:53-0500 Body mass index (BMI) [Ratio] 18.2 kg/m2 [facility] 03-11-2022 01:53-0500 Body temperature 97.6 [degF] [facility] 03-11-2022 01:53-0500 Body weight 45.2 kg [facility] 03-09-2022 03:26-0500 Body height 157.48 cm [facility] Work Phone: 03-09-2022 03:26-0500 Body mass index (BMI) [Ratio] 18.7 kg/m2 [facility] 03-09-2022 03:26-0500 Body temperature 98.3 [degF] [facility] 03-09-2022 03:26-0500 Body weight 46.5 kg [facility] 03-09-2022 03:26-0500 Diastolic blood pressure 57 mm[Hg] [facility] 03-09-2022 03:26-0500 Heart rate 69 /min [facility] 03-09-2022 03:26-0500 Respiratory rate 15 /min [facility] 03-09-2022 03:26-0500 SaO2% (BldA) [Mass fraction] 98 % [facility] 03-09-2022 03:26-0500 Systolic blood pressure 122 mm[Hg] [facility] 03-06-2022 18:34-0500 Body height 159.4 cm Bairon Torres MD Work Phone: [facility] [place] 03-06-2022 18:34-0500 Body weight 44.91 kg Bairon Torres MD Work Phone: [facility] [place] 03-06-2022 18:34-0500 Diastolic blood pressure 78 mm[Hg] Bairon Torres MD Work Phone: [facility] [place] 03-06-2022 18:34-0500 Heart rate 84 /min Bairon Torres MD Work Phone: [facility] [place] 03-06-2022 18:34-0500 Respiratory rate 16 /min Bairon Torres MD Work Phone: [facility] [place] 03-06-2022 18:34-0500 Systolic blood pressure 140 mm[Hg] Bairon Torres MD Work Phone: [facility] [place] 07-23-2021 08:47-0400 Body temperature 97 [degF] Louis Isaacs DO Work Phone: [facility] [place] 07-23-2021 08:47-0400 Body weight 47.63 kg Louis Isaacs DO Work Phone: [facility] [place] 07-23-2021 08:47-0400 Diastolic blood pressure 60 mm[Hg] Louis Isaacs DO Work Phone: [facility] [place] 07-23-2021 08:47-0400 Heart rate 68 /min Louis Isaacs DO Work Phone: [facility] [place] 07-23-2021 08:47-0400 Respiratory rate 16 /min Louis Isaacs DO Work Phone: [facility] [place] 07-23-2021 08:47-0400 Systolic blood pressure 120 mm[Hg] Louis Isaacs DO Work Phone: [facility] [place] 05-21-2021 14:33-0400 Body temperature 97.7 [degF] Angelica Praisler-Wood SENIOR CLINICAL PROJECT MANAGER.PRINT PROJECT MANAGER Work Phone: [facility] [place] 05-21-2021 14:33-0400 Body weight 48.9 kg Angelica Praisler-Wood SENIOR CLINICAL PROJECT MANAGER.PRINT PROJECT MANAGER Work Phone: [facility] [place] 05-21-2021 14:33-0400 Diastolic blood pressure 88 mm[Hg] Angelica Praisler-Wood SENIOR CLINICAL PROJECT MANAGER.PRINT PROJECT MANAGER Work Phone: [facility] [place] 05-21-2021 14:33-0400 Heart rate 73 /min Angelica Praisler-Wood SENIOR CLINICAL PROJECT MANAGER.PRINT PROJECT MANAGER Work Phone: [facility] [place] 05-21-2021 14:33-0400 Respiratory rate 18 /min Angelicalyndsey Lanier-Mj SENIOR CLINICAL PROJECT MANAGER.PRINT PROJECT MANAGER Work Phone: [facility] [place] 05-21-2021 14:33-0400 SaO2% (BldA) [Mass fraction] 99 % Angelicalyndsey Lanier-Wood SENIOR CLINICAL PROJECT MANAGER.PRINT PROJECT MANAGER Work Phone: [facility] [place] 05-21-2021 14:33-0400 Systolic blood pressure 130 mm[Hg] Angelica Lanier-Mj SENIOR CLINICAL PROJECT MANAGER.PRINT PROJECT MANAGER Work Phone: [facility] [place] 03-12-2021 15:14-0500 Body temperature 98.4 [degF] [facility] Work Phone: 03-12-2021 15:14-0500 Diastolic blood pressure 75 mm[Hg] [facility] Work Phone: 03-12-2021 15:14-0500 Heart rate 69 /min [facility] Work Phone: 03-12-2021 15:14-0500 Respiratory rate 16 /min [facility] Work Phone: 03-12-2021 15:14-0500 SaO2% (BldA) [Mass fraction] 98 % [facility] Work Phone: 03-12-2021 15:14-0500 Systolic blood pressure 133 mm[Hg] [facility] Work Phone: 03-12-2021 13:51-0500 Body height 162.56 cm [facility] Work Phone: 03-12-2021 13:51-0500 Body mass index (BMI) [Ratio] 17.6 kg/m2 [facility] Work Phone: 03-12-2021 13:51-0500 Body weight 46.72 kg [facility] Work Phone: Encounters Encounter Date [...] Bairon Torres MD Work Phone: [facility] [place] Comment on above: Mom anxiety Start: 06-29-2024 End: 06-29-2024 ambulatory Toño Yeboah RN Work Phone: [employer] Comment on above: Primary Care Coordin ator- Other Start: 06-07-2024 End: 06-07-2024 Telephone encounter Bairon Torres MD Work Phone: [facility] [place] Comment on above: Results Start: 05-19-2024 End: 05-19-2024 ambulatory HUE TORRES Facility:[facility] Start: 05-19-2024 End: 05-19-2024 Patient encounter procedure Hue Brian PA-C Work Phone: Neurology Comment on above: Dementia without beh avioral disturbance, psychotic disturbance, mood disturbance, or anxiety, unspecified dementia severity, unspecified dementia type (HCC) (Primary Dx) Start: 05-19-2024 End: 05-19-2024 ambulatory Valdemar Sterling Facility:[facility] Start: 05-08-2024 End: 05-08-2024 ambulatory BAIRON TORRES Facility:[facility] Start: 05-04-2024 End: 05-04-2024 ambulatory Bairon Torres MD Work Phone: [facility] [place] Comment on above: Mom's papers for the avenues Start: 05-04-2024 End: 05-04-2024 E-mail encounter from caregiver Bairon Torres MD Work Phone: [facility] Start: 04-23-2024 End: 04-23-2024 ambulatory CAROLYN ASHER Facility:[facility] Start: 04-23-2024 End: 04-23-2024 Patient encounter procedure Carolyn Asher PA-C Work Phone: [facility] [place] Comment on above: Mixed hyperlipidemia (Primary Dx); Stage 3a chronic kidney disease (HCC); Osteoporosis, unspecified osteoporosis type, unspecified pathological fracture presence; Dementia of the Alzheimer's type, with late onset, uncomplicated (HCC); Advance directive discussed with patient; Elevated blood sugar; Elevated TSH; Hydrocephalus in diseases classified elsewhere (HCC); Corns Start: 04-17-2024 End: 04-17-2024 ambulatory BAIRON TORRES Facility:[facility] Start: 03-30-2024 End: 03-30-2024 ambulatory CAROLYN ASHER Facility:[facility] Start: 03-30-2024 End: 03-30-2024 Office outpatient visit 40 minutes Carolyn Asher PA-C Work Phone: [facility] [place] Comment on above: Dementia of the Alzh eimer's type, with late onset, uncomplicated (HCC) (Primary Dx) Start: 03-29-2024 End: 03-29-2024 Telephone encounter Hue Torres PA-C Work Phone: [facility] [place] Comment on above: Insurance Authorizat ion Start: 03-05-2024 End: 03-09-2024 Refill Hue Torres PA-C Work Phone: [facility] Comment on above: Refill Request Start: 03-04-2024 End: 03-04-2024 Patient encounter procedure Fauzia Wagner APRN.CNP Work Phone: [facility] [place] Comment on above: Facial laceration, s ubsequent encounter (Primary Dx); Visit for suture removal Start: 03-04-2024 End: 03-04-2024 ambulatory FAUZIA WAGNER Facility:[facility] Start: 02-27-2024 End: 02-27-2024 Emergency department patient visit Bairon Torres Facility:[facility] Start: 01-15-2024 End: 01-16-2024 Refill Bairon Torres MD Work Phone: [facility] [place] Comment on above: Refill Request Start: 12-26-2023 End: 12-29-2023 ambulatory Hue Torres PA-C Work Phone: Neurology Comment on above: Anti-depressant Start: 12-24-2023 End: 12-24-2023 ambulatory Bairon Torres MD Work Phone: [facility] [place] Comment on above: Anti-depressant Start: 12-07-2023 End: 12-08-2023 Refill Bairon Torres MD Work Phone: [facility] Comment on above: Refill Request Start: 11-11-2023 End: 11-11-2023 ambulatory BAIRON TORRES Facility:[facility] Start: 11-11-2023 End: 11-11-2023 Patient encounter procedure Hue Torres PA-C Work Phone: Neurology Comment on above: Dementia without beh avioral disturbance, psychotic disturbance, mood disturbance, or anxiety, unspecified dementia severity, unspecified dementia type (HCC) (Primary Dx) Start: 11-11-2023 End: 11-11-2023 ambulatory HUE ACKERLYRAO Facility:[facility] Start: 10-22-2023 End: 10-22-2023 Telephone encounter Bairon Torres MD Work Phone: [facility] [place] Comment on above: Results Start: 10-21-2023 End: 10-21-2023 ambulatory BAIRON TORRES Facility:[facility] Start: 10-21-2023 End: 10-21-2023 Patient encounter procedure Bairon Torres MD Work Phone: [facility] Comment on above: Encounter for Medica re [...] Bairon zazueta MD Work Phone: [facility] [place] Comment on above: Crestor new prescrip tion Start: 05-23-2023 Telephone encounter Bairon Torres MD Work Phone: [facility] [place] Comment on above: Results (Abnormal la bs - Dr. Guzmán's office. ) Start: 05-05-2023 ambulatory Hue Castro r PA-C Work Phone: Neurology Comment on above: Exelon Start: 02-05-2023 Refill Hue Castro r PA-C Work Phone: [facility] [place] Comment on above: Refill Request Start: 01-20-2023 Refill Bairon zazueta MD Work Phone: [facility] [place] Comment on above: Refill Request Start: 01-15-2023 Telephone encounter Bairon Torres MD Work Phone: [facility] [place] Comment on above: Outside Imaging (Car otid US); Results Start: 01-15-2023 Non-patient / Non-visit Dr. Aj Torres Work Phone: [facility] Start: 01-15-2023 End: 01-15-[address] Bairon Torres Work Phone: [facility] Work Phone: Start: 01-15-2023 End: 01-15-[address] Bairon Torres Work Phone: [facility]-Cardiovascul ar Services Work Phone: Start: 01-07-2023 ambulatory Bairon zazueta MD Work Phone: [facility] Comment on above: Dr. Mason Start: 12-10-2022 ambulatory Bairon zazueta MD Work Phone: [facility] Comment on above: US Carotid Arteries [facility] Start: 11-30-2022 End: 11-30-[address] Bairon Torres Work Phone: [facility]-Laboratory Work Phone: Start: 09-04-2022 End: 09-04-2022 Patient encounter procedure Bairon Torres MD Work Phone: [facility] Comment on above: Encounter for Medica re annual wellness exam (Primary Dx); Mixed hyperlipidemia; Elevated blood sugar; Elevated TSH; Bilateral carotid artery stenosis; Stage 3a chronic kidney disease (HCC); Dementia of the Alzheimer's type, with late onset, uncomplicated (HCC); Glaucoma, unspecified glaucoma type, unspecified laterality; Hydrocephalus in diseases classified elsewhere (HCC) Start: 08-28-2022 Orders Only Slime gannon APRN.PRINT PROJECT MANAGER Work Phone: Neurology Comment on above: Exelon refill Start: 08-27-2022 Refill Josue cunha MD Work Phone: Neurology Comment on above: Refill Request Start: 08-24-2022 Refill Bairon zazueta MD Work Phone: [facility] Comment on above: Refill Request Exelon refill Refill Request; Refi ll Request Start: 07-14-2022 Refill Bairon zazueta MD Work Phone: [facility] Comment on above: Refill Request Start: 06-28-2022 [...] Chart abstracting Bairon mobley MD Work Phone: [facility] Comment on above: Abstract Start: 05-15-2022 End: 05-15-[address] Bairon Torres Work Phone: [facility] Work Phone: Start: 05-15-2022 End: 05-15-[address] Bairon Torres Work Phone: [facility] Start: 05-08-2022 End: 05-08-2022 Patient encounter procedure Bairon Torres MD Work Phone: [facility] Comment on above: Dementia of the Alzh eimer's type, with late onset, uncomplicated (HCC) (Primary Dx) Start: 04-25-2022 Chart abstracting Bairon mobley MD Work Phone: [facility] [place] Comment on above: ER F/U (ER [facility] ) Start: 04-25-2022 Non-patient / Non-visit Dr. Aj Torres Work Phone: [facility] Start: 04-25-2022 Non-patient / Non-visit Dr. Aj Torres Work Phone: [facility] Start: 04-25-2022 End: 04-25-2022 Non-patient / Non-visit Dr. Bairon Torres Work Phone: [facility] Start: 04-24-2022 Non-patient / Non-visit Dr. Aj Torres Work Phone: [facility] Start: 04-24-2022 Non-patient / Non-visit Dr. Aj Torres Work Phone: [facility] Start: 04-24-2022 End: 04-25-2022 Evaluation and management of inpatient Dr. Bairon Torres Work Phone: [facility]-Progressive Care Unit Start: 04-24-2022 Chart abstracting Bairon mobley MD Work Phone: [facility] Comment on above: ER F/U (ER - [facility] ) Start: 04-12-2022 Telephone encounter Bairon Torres MD Work Phone: [facility] Comment on above: Results Start: 04-07-2022 Refill Bairon zazueta MD Work Phone: [facility] Comment on above: Refill Request Start: 04-01-2022 End: 04-01-2022 Subsequent hospital visit by physician [facility] (I-Stat/1.5t) Work Phone: Radiology Comment on above: Memory deficit [R41. 3] Start: 03-28-2022 Telephone encounter Bairon Torres MD Work Phone: [facility] Comment on above: Medication Request Start: 03-11-2022 End: 03-11-2022 Emergency department patient visit [facility]-Emergency Department Start: 03-09-2022 End: 03-09-2022 Emergency department patient visit [facility]-Emergency Department Start: 03-06-2022 End: 03-06-2022 Patient encounter procedure Bairon Torres MD Work Phone: [facility] Comment on above: Mixed hyperlipidemia (Primary Dx); Elevated TSH; Elevated blood sugar; Stage 3a chronic kidney disease (HCC); Bilateral carotid artery stenosis; Memory deficit; Osteoporosis, unspecified osteoporosis type, unspecified pathological fracture presence; Advance directive discussed with patient; Microscopic hematuria Start: 12-24-2021 End: 12-24-2021 Refill Louis Isaacs DO Work Phone: [facility] Comment on above: Refill Request Start: 12-24-2021 End: 12-24-2021 Patient encounter procedure [facility] Start: 07-25-2021 Refill Louis ford DO Work Phone: [facility] Start: 07-23-2021 End: 07-23-2021 Patient encounter procedure Louis Isaacs DO Work Phone: [facility] Comment on above: Osteoporosis, unspec ified osteoporosis type, unspecified pathological fracture presence (Primary Dx); Hyperlipidemia, unspecified hyperlipidemia type; Chronic ITP (idiopathic thrombocytopenia) ([facility]); Stage 3a chronic kidney disease ([facility]); Elevated TSH; Hyperglycemia; Fatigue, unspecified type; Right carotid bruit Start: 06-25-2021 End: 06-25-2021 Patient encounter procedure [facility] Start: 06-20-2021 Refill Louis ford DO Work Phone: [facility] Comment on above: Refill Request Start: 05-21-2021 End: 05-21-2021 Patient encounter procedure Angelica Martinez APRN.CNP Work Phone: [facility] Comment on above: Bilateral impacted c erumen (Primary Dx) Start: 04-23-2021 End: 04-23-2021 Patient encounter procedure [facility]-MRI - [facility] Start: 03-12-2021 End: 03-12-2021 Patient encounter procedure [facility]-Medical Surgical 3 Outp Start: 12-16-2016 Ambulatory AYANNA Cee ([facility]) [facility] Procedures Date Procedure Procedure Detail Performing Clinician [...] DTaP,Tdap,Td Vaccine (4 - Td or Tdap) [facility] [place] Start: 05-09-2027 [facility] Start: 04-17-2027 [facility] Start: 11-10-2026 [facility] Start: 10-20-2026 [facility] Start: 05-18-2026 [facility] Start: 03-08-2026 [facility] Start: 08-17-2025 DIABETES SCREEN DIABETES SCREEN [facility] Start: 08-17-2025 [facility] Start: 02-14-2025 DIABETES SCREEN DIABETES SCREEN [facility] Start: 11-24-2024 End: 11-24-2024 Patient encounter procedure 11/24/2024 3:30 PM EDT Office Visit Neurology [address] [place], [place] [id number] Hue Torres PA-C [address] [place], [place] [id number] 6 month follow up Neurology Comment on above: 6 month follow up Start: 11-23-2024 End: 11-23-2024 Patient encounter procedure 11/23/2024 4:00 PM EDT Office Visit Neurology [address] [place], [place] [phone] Hue Torres PA-C [address] [place], [place] [phone] 6 month follow up Neurology Comment on above: 6 month follow up Start: 10-29-2024 End: 10-29-2024 Patient encounter procedure [facility] [place] Comment on above: Medicare Wellness Start: 10-21-2024 End: 01-20-2025 25-hydroxyvitamin D3 [Mass/volume] in Serum or Plasma VITAMIN D 25 HYDROXY Lab Routine Osteoporosis, unspecified osteoporosis type, unspecified pathological fracture presence Expected: 10/21/2024, Expires: 01/20/2025 [facility] [place] Comment on above: Expected: 10/21/2024 , Expires: 01/20/2025 Start: 10-21-2024 End: 01-20-2025 CBC W Auto Differential panel - Blood COMPLETE BLOOD COUNT AND DIFFERENTIAL Lab Routine Stage 3a chronic kidney disease (HCC) Expected: 10/21/2024, Expires: 01/20/2025 [facility] [place] Comment on above: Expected: 10/21/2024 , Expires: 01/20/2025 Start: 10-21-2024 End: 01-20-2025 Comprehensive metabolic 2000 panel - Serum or Plasma COMPREHENSIVE METABOLIC PANEL Lab Routine Stage 3a chronic kidney disease (HCC) Osteoporosis, unspecified osteoporosis type, unspecified pathological fracture presence Expected: 10/21/2024, Expires: 01/20/2025 [facility] [place] Comment on above: Expected: 10/21/2024 , Expires: 01/20/2025 Start: 10-21-2024 End: 01-20-2025 Hemoglobin A1c in Blood HEMOGLOBIN A1C Lab Routine Elevated blood sugar Expected: 10/21/2024, Expires: 01/20/2025 [facility] [place] Comment on above: Expected: 10/21/2024 , Expires: 01/20/2025 Start: 10-21-2024 End: 01-20-2025 LIPID PANEL, NONFASTING LIPID PANEL, NONFASTING Lab Routine Mixed hyperlipidemia Expected: 10/21/2024, Expires: 01/20/2025 [facility] Work Phone: Comment on above: Expected: 10/21/2024 , Expires: 01/20/2025 Start: 10-21-2024 End: 01-20-2025 Thyrotropin [Units/volume] in Serum or Plasma THYROID STIMULATING HORMONE Lab Routine Elevated TSH Expected: 10/21/2024, Expires: 01/20/2025 [facility] [place] Comment on above: Expected: 10/21/2024 , Expires: 01/20/2025 Start: 10-20-2024 Covid-19 Vaccine () Covid-19 Vaccine () [facility] [place] Comment on above: Postponed from 07/11 (Declined at this time) Start: 10-01-2024 Screening for osteoporosis Bone Density Screening [facility] [place] Comment on above: Postponed from 04/03 (Postponed - Not Clinically Indicated) Start: 07-23-2024 DIABETES SCREEN DIABETES SCREEN [facility] Start: 05-19-2024 End: 05-19-2024 Patient encounter procedure Neurology Comment on above: follow up, Dementia follow up, Dementia, exelon 1.5 mg Start: 05-12-2024 End: 05-12-2024 Patient encounter procedure 05/12/2024 4:30 PM EDT Office Visit Neurology [address] [facility] [place], [place] [phone] Hue Torres PA-C [address] [facility] [place], [place] [phone] follow up, Dementia Neurology Comment on above: follow up, Dementia Start: 04-23-2024 End: 04-23-2024 Patient encounter procedure 04/23/2024 1:20 PM EST Office Visit Family [facility] Gutier[facility] [address] [place], [place] [phone] Carolyn Asher PA-C [address] [facility] [place] [address] 6 month follow up [facility] [place] Comment on above: 6 month follow up Start: 04-09-2024 End: 07-09-2024 Comprehensive metabolic 2000 panel - Serum or Plasma COMPREHENSIVE METABOLIC PANEL Lab Routine Mixed hyperlipidemia Stage 3a chronic kidney disease (HCC) Expected: 04/09/2024, Expires: 07/09/2024 [facility] [place] Comment on above: Expected: 04/09/2024 , Expires: 07/09/2024 Start: 04-09-2024 End: 07-09-2024 Hemoglobin A1c in Blood HEMOGLOBIN A1C Lab Routine Elevated blood sugar Expected: 04/09/2024, Expires: 07/09/2024 [facility] [place] Comment on above: Expected: 04/09/2024 , Expires: 07/09/2024 Start: 04-09-2024 End: 07-09-2024 LIPID PANEL, NONFASTING LIPID PANEL, NONFASTING Lab Routine Mixed hyperlipidemia Expected: 04/09/2024, Expires: 07/09/2024 [facility] [place] Comment on above: Expected: 04/09/2024 , Expires: 07/09/2024 Start: 04-09-2024 End: 07-09-2024 Thyrotropin [Units/volume] in Serum or Plasma THYROID STIMULATING HORMONE Lab Routine Elevated TSH Expected: 04/09/2024, Expires: 07/09/2024 [facility] [place] Comment on above: Expected: 04/09/2024 , Expires: 07/09/2024 Start: 03-30-2024 End: 03-30-2024 Patient encounter procedure 03/30/2024 9:40 AM EST Office Visit [facility] [place] [address] [place], [place] [id number] Carolyn Asher PA-C [address] [place], [place] [phone] discuss/evaluate for assisted living Family [facility] Comment on above: discuss/evaluate for assisted living Start: 03-03-2024 Advance Directive Discussion Advance Directive Discussion [facility] [place] Start: 03-03-2024 Medicare Advantage A nnual Wellness Visit Medicare Advantage Annual Wellness Visit [facility] [place] Start: 01-23-2024 DIABETES SCREEN DIABETES SCREEN [facility] Start: 11-11-2023 End: 11-11-2023 Patient encounter procedure Neurology Comment on above: follow up follow up, Dementia Start: 11-02-2023 Covid-19 Vaccine () Covid-19 Vaccine () [facility] [place] Start: 11-02-2023 Covid-19 Vaccine () Covid-19 Vaccine () [facility] [place] Start: 11-02-2023 Influenza vaccination Influenza Vacc ine (#1) [facility] [place] Start: 10-21-2023 End: 01-20-2024 Hemoglobin A1c in Blood [facility] Work Phone: Comment on above: Expected: 10/21/2023 , Expires: 01/20/2024 Start: 10-21-2023 End: 01-20-2024 Urinalysis complete panel - Urine URINALYSIS, WITH MICROSCOPIC Lab Routine Mixed hyperlipidemia Expected: 10/21/2023, Expires: 01/20/2024 [facility] [place] Comment on above: Expected: 10/21/2023 , Expires: 01/20/2024 Start: 10-21-2023 End: 10-21-2023 Patient encounter procedure 10/21/2023 1:00 PM EDT Office Visit [facility] [place] [address] [place], [place] [phone] Bairon Torres MD [address] [place], [place] [phone] medicare wellness (R/S from provider out on 09/24/23) [facility] [place] Comment on above: medicare wellness (R /S from provider out on 09/24/23) Start: 09-24-2023 End: 09-24-2023 Patient encounter procedure 09/24/2023 5:00 PM EDT Office Visit [facility] [place] [address] [place] [address] Bairon Torres MD [address] [place], [place] [phone] medicare wellness [facility] [place] Comment on above: medicare wellness Start: 07-12-2023 Covid-19 Vaccine () Covid-19 Vaccine () [facility] [place] Start: 05-23-2023 End: 08-22-2023 Calcium [Mass/volume] in Serum or Plasma CALCIUM TOTAL BLD Lab Routine Hypercalcemia Expected: 05/23/2023, Expires: 08/22/2023 [facility] Work Phone: Comment on above: Expected: 05/23/2023 , Expires: 08/22/2023 Start: 05-23-2023 End: 08-22-2023 Parathyrin.intact [Mass/volume] in Serum or Plasma PTH INTACT BLD Lab Routine Hypercalcemia Expected: 05/23/2023, Expires: 08/22/2023 [facility] Work Phone: Comment on above: Expected: 05/23/2023 , Expires: 08/22/2023 Start: 04-03-2023 Screening for osteoporosis Bone Density Screening [facility] [place] Start: 03-06-2023 SHINGRIX VACCINE (2 of 2) LUU GRIX VACCINE (2 of 2) [facility] [place] Comment on above: Postponed from 06/08 (Insurance Coverage) Start: 03-06-2023 Urine microalbumin profile [facility] [place] Comment on above: Postponed from 01/26 (Insurance Coverage) Start: 03-03-2023 Advance Directive Discussion Advance Directive Discussion [facility] [place] Start: 02-21-2023 End: 04-23-2023 Hemoglobin A1c in Blood HGB A1C Lab Routine Elevated blood sugar Expected: 02/21/2023, Expires: 04/23/2023 [facility] Work Phone: Comment on above: Expected: 02/21/2023 , Expires: 04/23/2023 Start: 02-21-2023 End: 04-23-2023 Hepatic function 2000 panel - Serum or Plasma HEPATIC FUNCTION PNL Lab Routine Mixed hyperlipidemia Expected: 02/21/2023, Expires: 04/23/2023 [facility] Work Phone: Comment on above: Expected: 02/21/2023 , Expires: 04/23/2023 Start: 02-21-2023 End: 04-23-2023 LIPID PANEL, NONFASTING LIPID PANEL, NONFASTING Lab Routine Mixed hyperlipidemia Expected: 02/21/2023, Expires: 04/23/2023 [facility] Work Phone: Comment on above: Expected: 02/21/2023 , Expires: 04/23/2023 Start: 11-01-2022 Covid-19 Vaccine () Covid-19 Vaccine () [facility] Start: 11-01-2022 Influenza vaccination [facility] Start: 08-23-2022 End: 10-23-2022 25-hydroxyvitamin D3 [Mass/volume] in Serum or Plasma VITAMIN D 25 HYDROXY Lab Routine Osteoporosis, unspecified osteoporosis type, unspecified pathological fracture presence Expected: 08/23/2022, Expires: 10/23/2022 [facility] Work Phone: Comment on above: Expected: 08/23/2022 , Expires: 10/23/2022 Start: 08-23-2022 End: 10-23-2022 CBC W Auto Differential panel - Blood CBC + DIFF Lab Routine Stage 3a chronic kidney disease (HCC) Expected: 08/23/2022, Expires: 10/23/2022 [facility] Work Phone: Comment on above: Expected: 08/23/2022 , Expires: 10/23/2022 Start: 08-23-2022 End: 10-23-2022 Comprehensive metabolic 2000 panel - Serum or Plasma COMP METABOLIC PANEL Lab Routine Mixed hyperlipidemia Stage 3a chronic kidney disease (HCC) Expected: 08/23/2022, Expires: 10/23/2022 [facility] Work Phone: Comment on above: Expected: 08/23/2022 , Expires: 10/23/2022 Start: 08-23-2022 End: 10-23-2022 Hemoglobin A1c in Blood HGB A1C Lab Routine Mixed hyperlipidemia Elevated blood sugar Expected: 08/23/2022, Expires: 10/23/2022 [facility] Work Phone: Comment on above: Expected: 08/23/2022 , Expires: 10/23/2022 Start: 08-23-2022 End: 10-23-2022 LIPID PANEL, NONFASTING LIPID PANEL, NONFASTING Lab Routine Mixed hyperlipidemia Bilateral carotid artery stenosis Expected: 08/23/2022, Expires: 10/23/2022 [facility] Work Phone: Comment on above: Expected: 08/23/2022 , Expires: 10/23/2022 Start: 08-23-2022 End: 10-23-2022 Thyrotropin [Units/volume] in Serum or Plasma TSH BLD Lab Routine Elevated TSH Expected: 08/23/2022, Expires: 10/23/2022 [facility] Work Phone: Comment on above: Expected: 08/23/2022 , Expires: 10/23/2022 Start: 08-23-2022 End: 10-23-2022 Urinalysis complete panel - Urine URINALYSIS, WITH MICROSCOPIC Lab Routine Mixed hyperlipidemia Stage 3a chronic kidney disease (HCC) Microscopic hematuria Expected: 08/23/2022, Expires: 10/23/2022 [facility] Work Phone: Comment on above: Expected: 08/23/2022 , Expires: 10/23/2022 Start: 04-25-2022 Patient discharge [facility] Start: 04-24-2022 Application of intermittent pneumatic compression device [facility] Start: 04-24-2022 Following clinical pathway protocol [facility] Start: 04-24-2022 Catheterization of vein [facility] Start: 04-24-2022 Enteric precautions [facility] Start: 04-24-2022 End: 04-24-2022 [facility] Start: 04-24-2022 Ambulation without limitation [facility] Start: 04-24-2022 Assessment of risk o f venous thromboembolism [facility] Start: 04-24-2022 Documentation procedure [facility] Start: 04-24-2022 Incentive spirometry [facility] Start: 04-24-2022 Insertion of cathete r into peripheral vein [facility] Start: 04-24-2022 Measuring intake and output [facility] Start: 04-24-2022 Oxygen therapy [facility] Start: 04-24-2022 Providing care accor ding to standard [facility] Start: 04-24-2022 Referral to gastroenterology service [facility] Start: 04-24-2022 Referral to occupati onal therapist [facility] Start: 04-24-2022 Referral to service [facility] Start: 04-24-2022 Admission procedure [facility] Start: 04-24-2022 Colonoscopy w/biopsy single/multiple COLONOSCOPY AND BIOPSY [facility] Start: 04-24-2022 Patient referral to dietitian [facility] Start: 04-05-2022 End: 06-05-2022 Urinalysis complete panel - Urine URINALYSIS, WITH MICROSCOPIC Lab Routine Microscopic hematuria Expected: 04/05/2022, Expires: 06/05/2022 [facility] Work Phone: Comment on above: Expected: 04/05/2022 , Expires: 06/05/2022 Start: 03-06-2022 End: 05-06-2022 Cobalamin (Vitamin B12) [Mass/volume] in Serum or Plasma VITAMIN B12 BLOOD Lab Routine Memory deficit Expected: 03/06/2022, Expires: 05/06/2022 [facility] Work Phone: Comment on above: Expected: 03/06/2022 , Expires: 05/06/2022 Start: 03-06-2022 End: 05-06-2022 Folate [Mass/volume] in Serum or Plasma FOLATE SERUM Lab Routine Memory deficit Expected: 03/06/2022, Expires: 05/06/2022 [facility] Work Phone: Comment on above: Expected: 03/06/2022 , Expires: 05/06/2022 Start: 03-06-2022 End: 05-06-2022 SYPHILIS TOTAL W/REFLEX SYPHILIS TOTAL W/REFLEX Lab Routine Memory deficit Expected: 03/06/2022, Expires: 05/06/2022 [facility] Work Phone: Comment on above: Expected: 03/06/2022 , Expires: 05/06/2022 Start: 01-26-2022 Urine microalbumin profile DTAP,TDAP,TD (3 - Tdap) [facility] Start: 11-01-2021 Influenza vaccination INFLUENZA (#1) [facility] Start: 07-23-2021 End: 09-22-2021 CBC panel - Blood by Automated count [facility] Work Phone: Comment on above: Expected: 07/23/2021 , Expires: 09/22/2021 Start: 07-23-2021 End: 09-22-2021 Comprehensive metabolic 2000 panel - Serum or Plasma [facility] Work Phone: Comment on above: Expected: 07/23/2021 , Expires: 09/22/2021 Start: 07-23-2021 End: 09-22-2021 Hemoglobin A1c/Hemoglobin.total in Blood [facility] Work Phone: Comment on above: Expected: 07/23/2021 , Expires: 09/22/2021 Start: 07-23-2021 End: 09-22-2021 LIPID PANEL, NONFASTING [facility] Work Phone: Comment on above: Expected: 07/23/2021 , Expires: 09/22/2021 Start: 07-23-2021 End: 09-22-2021 T3 FREE BLD [facility] Work Phone: Comment on above: Expected: 07/23/2021 , Expires: 09/22/2021 Start: 07-23-2021 End: 09-22-2021 T4 FREE/FREE THYROX [facility] Work Phone: Comment on above: Expected: 07/23/2021 , Expires: 09/22/2021 Start: 07-23-2021 End: 09-22-2021 Thyrotropin [Units/volume] in Serum or Plasma [facility] Work Phone: Comment on above: Expected: 07/23/2021 , Expires: 09/22/2021 Start: 07-23-2021 End: 09-22-2021 VITAMIN B12 BLOOD [facility] Work Phone: Comment on above: Expected: 07/23/2021 , Expires: 09/22/2021 Start: 07-23-2021 End: 09-22-2021 VITAMIN D 25 HYDROXY [facility] Work Phone: Comment on above: Expected: 07/23/2021 , Expires: 09/22/2021 Start: 04-21-2021 COVID-19 VACCINE (4 - Booster for Moderna series) COVID-19 VACCINE (4 - Booster for Moderna series) [facility] Start: 03-16-2021 COVID-19 VACCINE (4 - Booster for Moderna series) COVID-19 VACCINE (4 - Booster for Moderna series) [facility] Start: 03-03-2021 ADVANCE DIRECTIVE DISCUSSION ADVANCE DIRECTIVE DISCUSSION [facility] Start: 03-03-2021 DEPRESSION ASSESSMENT DEPRESSION ASS ESSMENT [facility] Start: 06-09-2019 SHINGRIX VACCINE (2 of 2) LUU GRIX VACCINE (2 of 2) [facility] Start: 06-09-2019 SHINGRIX VACCINE (3 of 3) LUU GRIX VACCINE (3 of 3) [facility] Start: 06-20-2016 PNEUMOCOCCAL: 65+ (3 - PPSV23 or PCV20) PNEUMOCOCCAL: 65+ (3 - PPSV23 or PCV20) [facility] [place] Start: 1997 RSV Vaccine (1 - 1-d ose 60+ series) RSV Vaccine (1 - 1-dose 60+ series) [facility] Clostridioides diffi cile toxin genes [Presence] in Stool by JONI with probe detection CLOSTRIDIUM DIFFICILE TOXIN BY PCR Lab Routine Diarrhea, unspecified type Ordered: 08/05/2024 [facility] Work Phone: Comment on above: Ordered: 08/05/2024 ENTERIC BACTERIAL PA NINO BY PCR ENTERIC BACTERIAL PANEL BY PCR Lab Routine Diarrhea, unspecified type Ordered: 08/05/2024 [facility] Comment on above: Ordered: 08/05/2024 FAT, FECAL QUAL FAT, FECAL QUAL Lab Routine Diarrhea, unspecified type Ordered: 08/05/2024 [facility] Comment on above: Ordered: 08/05/2024 FECAL LACTOFERRIN/LEUKOCYTES FECAL LACTOFERRIN/LEUKOCYTES Lab Routine Diarrhea, unspecified type Ordered: 08/05/2024 [facility] Comment on above: Ordered: 08/05/2024 Giardia lamblia+Cryptosporidium sp Ag [Presence] in Stool by Immunoassay CRYPTOSPORIDIUM AND GIARDIA ANTIGENS BY EIA Microbiology Routine Diarrhea, unspecified type Ordered: 08/05/2024 [facility] Comment on above: Ordered: 08/05/2024 End: 04-05-2023 Mri brain brain stem w/o contrast material MRI BRAIN WO IVCON Radiology Routine Memory deficit 1 Occurrences starting 03/06/2022 until 04/05/2023 [facility] Work Phone: Comment on above: 1 Occurrences starti ng 03/06/2022 until 04/05/2023 Ova and parasites identified in Unspecified specimen by Light microscopy [facility] Patient Education [facility] Work Phone: Patient referral [facility] Work Phone: Removal impacted cer umen instrumentation unilat [facility] MGMT EAR WAX REMOVA Procedures Routine Bilateral impacted cerumen Ordered: 05/21/2021 [facility] Work Phone: Comment on above: Ordered: 05/21/2021 End: 07-23-2022 US CAROTID ARTERIES ALLEN [facility] LAB US CAROTID ARTERIES [facility]EN [facility] LAB Vascular Lab Routine Right carotid bruit 1 Occurrences starting 07/23/2021 until 07/23/2022 [facility] Work Phone: Comment on above: 1 Occurrences starti ng 07/23/2021 until 07/23/2022 End: 09-05-2023 US CAROTID ARTERIES ALLEN V[facility] LAB US CAROTID ARTERIES ALLEN [facility] LAB Vascular Lab Routine Bilateral carotid artery stenosis 1 Occurrences starting 09/04/2022 until 09/05/2023 [facility] Work Phone: Comment on above: 1 Occurrences starti ng 09/04/2022 until 09/05/2023 [facility] Immunizations Immunization Date Immunization Notes Care Provider Johnny mayo 12-01-2023 Seasonal trivalent influenza vaccine, adjuvanted, preservative free Carolyn Asher PA-C Work Phone: [facility] 04-19-2023 tetanus toxoid, redu quita diphtheria toxoid, and acellular pertussis vaccine, adsorbed Hue Torres PA-C Work Phone: [facility] 04-05-2023 respiratory syncytia l virus (RSV) vaccine, adjuvanted (AREXVY) Hue Torres PA-C Work Phone: [facility] 03-13-2023 COVID-19 vaccine, ag e 12+ yr, season ([employer] Hue Vargheserao BENTLEY Work Phone: [facility] 01-01-2023 influenza (aIIV4) vaccine, age 65+ yr, quadrivalent, PF (FLUAD QUAD) Hue [facility] Work Phone: [facility] Work Phone: 01-01-2023 influenza virus vacc ine, unspecified formulation [facility] Work Phone: [facility] 03-26-2022 zoster vaccine recombinant [facility] Work Phone: [facility] 01-01-2022 influenza, high dose seasonal, preservative-free Bairon Torres MD Work Phone: [facility] 01-01-2022 influenza virus vacc ine, unspecified formulation Bairon Torres MD Work Phone: [facility] 11-10-2021 influenza, injectabl e, quadrivalent, preservative free Dr. Bairon Torres Work Phone: [facility] 11-10-2021 influenza, seasonal, injectable Dr. Bairon Torres Work Phone: [facility] 03-26-2021 zoster vaccine recombinant Bairon Torres MD Work Phone: [facility] Work Phone: 01-19-2021 COVID-19 vaccine, fu ll dose (MODERNA) Angelica Martinez SENIOR CLINICAL PROJECT MANAGER.PRINT PROJECT MANAGER Work Phone: [facility] Work Phone: 11-15-2020 influenza, seasonal, injectable Angelica Martinez SENIOR CLINICAL PROJECT MANAGER.PRINT PROJECT MANAGER Work Phone: [facility] Work Phone: 04-27-2020 COVID-19 vaccine, fu ll dose (MODERNA) Angelica Martinez APRN.PRINT PROJECT MANAGER Work Phone: [facility] Work Phone: 03-30-2020 COVID-19 vaccine, fu ll dose (MODERNA) Angelica Martinez APRN.PRINT PROJECT MANAGER Work Phone: [facility] Work Phone: 10-14-2019 zoster vaccine recombinant Bairon Torres MD Work Phone: [facility] Work Phone: 04-14-2019 zoster vaccine recombinant Angelica Martinez APRN.PRINT PROJECT MANAGER Work Phone: [facility] Work Phone: 11-26-2018 influenza, high dose seasonal, preservative-free Angelica Martinez SENIOR CLINICAL PROJECT MANAGER.PRINT PROJECT MANAGER Work Phone: [facility] Work Phone: 11-27-2016 influenza virus vacc ine, unspecified formulation Angelica Martinez SENIOR CLINICAL PROJECT MANAGER.PRINT PROJECT MANAGER Work Phone: [facility] 06-21-2015 pneumococcal conjuga te vaccine, 13 valent Angelica Martinez SENIOR CLINICAL PROJECT MANAGER.PRINT PROJECT MANAGER Work Phone: [facility] 12-14-2014 influenza, high dose seasonal, preservative-free Angelica Martinez SENIOR CLINICAL PROJECT MANAGER.PRINT PROJECT MANAGER Work Phone: [facility] 11-25-2013 Influenza virus vaccine [facility] 11-21-2013 influenza, seasonal, injectable Angelica Martinez SENIOR CLINICAL PROJECT MANAGER.PRINT PROJECT MANAGER Work Phone: [facility] 12-27-2012 Pneumococcal Vaccine [facility] Work Phone: 12-27-2012 pneumococcal vaccine , unspecified formulation [facility] 01-27-2012 tetanus and diphther ia toxoids, adsorbed, preservative free, for adult use (2 Lf of tetanus toxoid and 2 Lf of diphtheria toxoid) Angelica Martinez APRN.PRINT PROJECT MANAGER Work Phone: [facility] 01-27-2012 zoster vaccine, live Angelica Martinez SENIOR CLINICAL PROJECT MANAGER.PRINT PROJECT MANAGER Work Phone: [facility] 11-25-2011 influenza virus vacc ine, unspecified formulation Angelica Martinez SENIOR CLINICAL PROJECT MANAGER.PRINT PROJECT MANAGER Work Phone: [facility] Work Phone: 12-06-2009 influenza virus vacc ine, unspecified formulation Angelicalyndsey Martinez SENIOR CLINICAL PROJECT MANAGER.PRINT PROJECT MANAGER Work Phone: [facility] [place] 12-19-2008 influenza virus vacc ine, unspecified formulation Angelicalyndsey Martinez SENIOR CLINICAL PROJECT MANAGER.PRINT PROJECT MANAGER Work Phone: [facility] Work Phone: 01-12-2007 pneumococcal polysaccharide vaccine, 23 valent Angelica Martinez SENIOR CLINICAL PROJECT MANAGER.PRINT PROJECT MANAGER Work Phone: [facility] 01-09-2006 diphtheria, tetanus toxoids and acellular pertussis vaccine Angelica Martinez SENIOR CLINICAL PROJECT MANAGER.[facility] Work Phone: [facility] Work Phone: 01-09-2006 influenza virus vacc ine, unspecified formulation Angelica Martinez APRN.PRINT PROJECT MANAGER Work Phone: [facility] Work Phone: 01-10-2005 influenza virus vacc ine, unspecified formulation Angelica Martinez SENIOR CLINICAL PROJECT MANAGER.[facility] Work Phone: [facility] Work Phone: Payers Date Payer Category Payer Self-pay [id number] 2021 Medicare AET MEDICARE A ETNA MEDICARE PPO [id number] 2021-Present [phone] [address] [place] [address] PPO [id number] 2021 Medicare AETNA MEDICARE A ETNA MEDICARE PPO [id number] 2021-Present [phone] [address] [place] [address] PPO [id number] 2021 Medicare (Managed Care) [employer] [place] [id number] 2021 Private Health Insurance [facility] [id number] 2006 Unknown [id number] 2002 Medicare [id number] Unknown [id number] Unknown [id number] Social History Date Type Detail Facility Start: 06-10-2013 Tobacco smoking stat us NHIS Never smoked tobacco [facility] Start: 05-21-2021 End: 05-19-2024 Alcohol intake Current non-drinker of alcohol (finding) [facility] Start: 1935 Sex Assigned At Not on file [facility] Start: 05-11-2021 End: 07-23-2021 Exposure to SARS-CoV-2 (event) Not sure [facility] Start: 03-09-2021 End: 04-24-2022 Tobacco smoking status NHIS Unknown if ever smoked [facility] Start: 1935 Sex Assigned At Female [facility] Start: 06-10-2013 Tobacco use and exposure Smoke less tobacco non-user [facility] Work Phone: Start: 05-08-2022 History SDOH Alcohol Frequency 1 [facility] Start: 05-08-2022 History SDOH Alcohol Std Drinks 0 [facility] Start: 05-08-2022 History SDOH Social Connections Phone 3 [facility] Start: 05-08-2022 History SDOH Social Connections Get Together 2 [facility] Start: 05-08-2022 History SDOH Social Connections Living 5 [facility] Start: 05-08-2022 End: 05-19-2024 History of Social function [facility] Start: 05-08-2022 End: 05-19-2024 Social connection and isolation panel [facility] Do you belong to any clubs or organizations such as advent groups, unions, fraternal or athletic groups, or school groups? Yes [facility] Are you now , , , , never or living with a partner? [facility] How often to you hav e a drink containing alcohol? Never [facility] How many standard dr inks containing alcohol do you have on a typical day? Patient does not drink [facility] Do you feel stress - tense, restless, nervous, or anxious, or unable to sleep at night because your mind is troubled all the time - these days [OSQ] Not at all [facility] (I/We) worried wheth er (my/our) food would run out before (I/we) got money to buy more. Never true [facility] In the past 12 month s, was there a time when you were not able to pay the mortgage or rent on time? No [facility] NEGATED: Highlighted row [facility] Goals Date Patient Goal Desired Activity /State Functional Status Date Assessment Result Facility 04-25-2022 Functional status Activity Abili ty Independent [facility] Work Phone: 04-25-2022 Functional status Ambulates [facility] Work Phone: 08-16-2014 Are you deaf, or do you have serious difficulty hearing No 08/16/2014 10:13 AM Lizeth Cano MA No [facility] 08-16-2014 Are you blind, or do you have serious difficulty seeing, even when wearing glasses No 08/16/2014 10:13 AM EDT Lizeth Pina MA No [facility] 08-16-2014 Do you have serious difficulty walking or climbing stairs No 08/16/2014 10:13 AM EDT Lizeth Pina MA No [facility] 08-16-2014 Do you have difficul ty dressing or bathing No 08/16/2014 10:13 AM EDT Lizeth Pina MA No [facility] 08-16-2014 Because of a physica l, mental, or emotional condition, do you have difficulty doing errands alone such as visiting a physician's office or shopping No 08/16/2014 10:13 AM EDT Lizeth Pina MA No [facility] Mental Status Date Assessment Result Facility 04-25-2022 Cognitive function Voice/Name [facility] Work Phone: 03-11-2022 Cognitive function Level Of Cons ciousness Awake;Alert;Appropriate [facility] Work Phone: 03-12-2021 Cognitive function Awake;Alert;A ppropriate;Fol lows Commands [facility] Work Phone: 08-16-2014 Because of a physica l, mental, or emotional condition, do you have serious difficulty concentrating, remembering, or making decisions No 08/16/2014 10:13 AM EDT Lizeth Pina MA No [facility] Clinical Notes 10-07-2013 to 08-30-2024 Telephone Encounter [...] for PCP to sign. Amina Weaver MA [facility] 08-30-2024 Miscellaneous Notes Call to the [facility], spoke with Nurse Lucinda. Notified her of message below from the Provider. She will send order for PCP to sign. Amina Weaver MA Please contact the Avenue and speak to patient's nurse. Advise OTC imodium AD. One tab twice a day for diarrhea as needed. Please see update from Daughter regarding patient. Amina Weaver MA documented in this encounter [facility] 08-30-2024 Telephone encounter Note Please contact the Avenue and speak to patient's nurse. Advise OTC imodium AD. One tab twice a day for diarrhea as needed. [facility] [place] 08-30-2024 Telephone encounter Note Please see update from Daughter regarding patient. Amina Weaver MA [facility] [place] 08-23-2024 Telephone encounter Note FYI. [facility] [place] 08-23-2024 Miscellaneous Notes FYI. documented in this encounter [facility] [place] 08-20-2024 Telephone encounter Note Daughter returned call and given provider's message below with verbalized understanding. Daughter states she will see mother lizbeth and find out the answers to these questions. Daughter will send MC message to pcp with reply. [facility] [place] 08-20-2024 Miscellaneous Notes Daughter returned call and [...] without constipating her. documented in this encounter [facility] [place] 08-20-2024 Telephone encounter Note Left message for patient to contact office. Keerthi Go MA [facility] [place] 08-19-2024 Telephone encounter Note Let daughterMarimar, know [...] if this stops it without constipating her. [facility] 08-05-2024 Telephone encounter Note Called and spoke with Jud at [facility] ([phone]) Informed and verbalized understanding. Geetha Kumar MA [facility] 08-05-2024 Miscellaneous Notes Called and spoke with Jud at [facility] ([phone]) Informed and verbalized understanding. Geetha Kumar MA Please contact the [facility] at [phone] and speak to nurse caring for mrs Amy Kumar. Let them know one of the daughter will be bring in stool kits to collect stool samples for her diarrhea. The daughter will also be bring in a probiotic with 5 billion organisms per capsule or tablet. Order is to take one a day. documented in this encounter [facility] 08-05-2024 Telephone encounter Note Please contact the [facility] at [phone] and speak to nurse caring for mrs Amy Kumar. Let them know one of the daughter will be bring in stool kits to collect stool samples for her diarrhea. The daughter will also be bring in a probiotic with 5 billion organisms per capsule or tablet. Order is to take one a day. [facility] 06-29-2024 Note HNO ID: [id number] Author: OTÑO YEBOAH RN Service: ? Author Type: Registered [...] Yeboah RN June 29, 2024 10:46 AM [facility] 06-29-2024 History of Present illness Narrative Value [...] 2024 10:46 AM documented in this encounter [facility] [place] 06-29-2024 Note Patient Outreach (AM BC) GUICHO MARTINEZ ([id number]) 1935 F Date Time Provider Department 06/29/24 [...] PA-C - Fully Assessed Reason for Visit: Director Dermatology- Other [[id number]] Prescriptions as of 06/29/2024 - rivastigmine tartrate (EXELON) 1.5 mg capsule Take 1 capsule in the morning and 2 capsules at night. - hydrOXYchloroQUINE (PLAQUENIL) 200 mg tablet Take 1 tablet by mouth once daily. Per rheumatology - rzplgz-jnknhjos-fynkiig (ZENPEP) 40,000-126,000- 168,000 unit delayed release capsule [...] Encounter Status:Closed by TOÑO YEBOAH on 06/29/24 [facility] 06-07-2024 Telephone encounter Note The following approved medication requests have been transmitted electronically. Requested Prescriptions Signed Prescriptions Disp Refills nitrofurantoin monohydrate and macrocrystal (MACROBID) 100 mg capsule 14 capsule 0 Sig: Take 1 capsule by mouth two times a day for 7 days. Authorizing Provider: BAIRON TORRES MD [facility] [place] 06-07-2024 Miscellaneous Notes The following approved medication [...] someone picks up the antibiotic from [facility] and get it in to them tonight. Pt is having frequent urination and is confused. She started symptoms yesterday so the nurse had called the protection manager provider who was Dr. Miles. A urinalysis was ordered. Joleen nurse from [facility] calling with results which show blood and leukocytes. She will fax results to this nurse and will forward to Dr. Kearney provider protection manager. Results received. Dr. Torres working in office and results shown to him. Called and spoke with daughter Marimar Owen. Will send med to [facility]. Will call the [facility] back and confirm culture was ordered as well. documented in this encounter [facility] 06-07-2024 Telephone encounter Note Called and spoke with Joleen. Urine culture was not ordered. Given verbal order as directed by Dr. Torres. Instructions to get sample before antibiotic is started. Notified Joleen that Marimar will be making sure someone picks up the antibiotic from [facility] and get it in to them tonight. [facility] 06-07-2024 Telephone encounter Note Pt is having frequent urination and is confused. She started symptoms yesterday so the nurse had called the protection manager provider who was Dr. Miles. A urinalysis was ordered. Jolene nurse from [facility] calling with results which show blood and leukocytes. She will fax results to this nurse and will forward to Dr. Kearney provider protection manager. Results received. Dr. Torres working in office and results shown to him. Called and spoke with daughter Marimar Owen. Will send med to [facility]. Will call the [facility] back and confirm culture was ordered as well. [facility] 05-19-2024 Instructions Hue Torres PA-C - 05/19/2024 5:16 PM EDT Continue with keeping your brain and body active Continue with exelon 1.5mg in the morning and 3mg in the evening Follow up in 6 months documented in this encounter [facility] [place] 05-19-2024 Note HNO ID: [id number] Author: HUE TORRES PA-C Service: ? Author Type: Physician Vice President Investor Relations Type: Progress Notes Filed: 05/19/2024 17:34 Note Text: [facility] Name: Guicho Martinez [...] aggression. Sleeping well, recently moved into a [facility] called [facility] and has been adjusting well to this [...] since she has been living at [facility]. No new concerns today, [place] did decline from previous at 10/19 today. [...] Resources: E.g. [facility] on the [place] side [facility]. 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 Power of Onion Topper/ planning of the patient's will Project Lifesaver: [...] dementia. Unfortunately, was unable to do a [place] due to time constraints. 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 Patient's primary concern today was her [...] Since last appointment she moved into [facility] which is an assisted living facility. Notes that she is been much more active since this move but she is walking around the facility and has (more content not included)... [facility] 05-19-2024 History of Present illness Narrative Images from the original note were not included. [facility] [place] [facility] Name: Guicho Martinez [...] aggression. Sleeping well, recently moved into a [facility] called [facility] and has been adjusting well to this [...] since she has been living at [facility]. No new concerns today, Barneveld did decline from previous at 819 today. [...] [facility] [place] [facility]. 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 Power of Onion Topper/ planning of the patient's will Project Lifesaver: [...] dementia. Unfortunately, was unable to do a [place] due to time constraints. 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 Per rheumatology ncwhlf-wzzvvyqa-hakmsdm (ZENPEP) 40,000-126,000- 168,000 unit delayed release capsule [...] was symmetric. Motor: Strength is full, decreased gang punch operator strength bilaterally at 4/5. Sensory: Intact to [...] 4.00 k/uL Monocytes % 9.5 % Abs Adams 0.63 <0.87 k/uL Eosinophils % 4.1 % [...] acute disease.... This note was dictated using Lineagen speech recognition software and may contain some [...] which included preparing to see the patient, mlee-fa-msgr patient care, completing clinical documentation, obtaining and/or reviewing separately obtained history, performing a medically appropriate examination, counseling and educating the patient/family/caregiver, and ordering medications, tests, or procedures. documented in this encounter [facility] 04-23-2024 Instructions Carolyn Asher PA-C - 04/23/2024 1:47 PM EST Will stop crestor as of now. Follow up in 6 months for wellness. Labs prior. documented in this encounter [facility] 04-23-2024 Note HNO ID: [id number] Author: CAROLYN ASHER PA-C Service: ? 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 Per rheumatology geyevk-bmydyrny-ewdyghr (ZENPEP) 40,000-126,000- 168,000 unit delayed release capsule [...] wheezing, rhonchi, ra (more content not included)... [facility] 04-23-2024 History of Present illness Narrative Chief [...] 07/2021 Allen 40-60% Chronic ITP (idiopathic thrombocytopenia) ([facility]) 06/10/2013 Dementia of the Alzheimer's type, with late onset, uncomplicated ([facility]) 05/08/2022 Diverticulosis of colon (without mention of [...] tablet by mouth once daily. Per rheumatology vchstr-qdsftdnf-ycflimf (ZENPEP) 40,000-126,000- 168,000 unit delayed release capsule [...] Carolyn Asher PA-C documented in this encounter [facility] [place] 03-30-2024 Note HNO ID: [id number] Author: CAROLYN ASHER PA-C Service: ? Author Type: Physician Vice President Investor Relations Type: Progress Notes Filed: 03/30/2024 13:04 Note [...] 07/2021 Allen 40-60% Chronic ITP (idiopathic thrombocytopenia) ([facility]) 06/10/2013 Dementia of the Alzheimer's type, with late onset, uncomplicated ([facility]) 05/08/2022 Diverticulosis of colon (without mention of hemorrhage) Dysmetabolic syndrome X 07/09/2005 Elevated blood sugar 07/23/2021 Elevated TSH 07/23/2021 Encounter for Medicare annual wellness exam 09/04/2022 Medicare Part B: Not able to find Last done: 09/04/2022 Family history of malignant neoplasm of gastrointestinal tract 01/09/2005 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 Per rheumatology pftfzp-bfmcvowy-apnocjf (ZENPEP) 40,000-126,000- 168,000 unit delayed release capsule [...] - ICD9: 331.0, (more content not included)... [facility] 03-30-2024 History of Present illness Narrative Chief [...] tablet by mouth once daily. Per rheumatology nrqsik-vuxohqvf-nhkfgpi (ZENPEP) 40,000-126,000- 168,000 unit delayed release capsule [...] which included preparing to see the patient, ykti-uj-lbvy patient care, completing clinical documentation, obtaining and/or reviewing separately obtained history, counseling and educating the patient/family/caregiver, and communicating results to the patient/family/caregiver. documented in this encounter [facility] 03-29-2024 Telephone encounter Note Started PA on [email or web address], pending now. Will watch for questions. Hugo Randle LPN March 29, 2024 10:06 AM [facility] 03-29-2024 Miscellaneous Notes Started PA on [email or web address], pending now. Will watch for questions. Hugo [...] Kanwal Alvarez LPN documented in this encounter [facility] 03-29-2024 Telephone encounter Note Pt's daughter calls to report [employer] states [employer] needs a prior authorization. Daughter reports pt will be out of medication on Friday. [employer] was supposed to fax request to office but daughter wanted to make sure office is aware so this can be processed. Kanwal Alvarez LPN [facility] 03-08-2024 Telephone encounter Note Prescription Refill Information [...] SALTY Coleman March 08, 2024 9:29 AM [facility] 03-08-2024 Miscellaneous Notes Prescription Refill Information The [...] 2024 9:29 AM documented in this encounter [facility] 03-04-2024 History of Present illness Narrative Chief [...] 07/2021 Allen 40-60% Chronic ITP (idiopathic thrombocytopenia) ([facility]) 06/10/2013 Dementia of the Alzheimer's type, with late onset, uncomplicated ([facility]) 05/08/2022 Diverticulosis of colon (without mention of hemorrhage) Dysmetabolic syndrome X 07/09/2005 Elevated blood sugar 07/23/2021 Elevated TSH 07/23/2021 Encounter for Medicare annual wellness exam 09/04/2022 Medicare Part B: Not able to find Last done: 09/04/2022 Family history of malignant neoplasm of gastrointestinal tract 01/09/2005 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 Per rheumatology kaiykg-xsecegpv-dbtxizr (ZENPEP) 40,000-126,000- 168,000 unit delayed release capsule [...] noted. Bandaid applied to area. Fauzia Wagner APRN.PRINT PROJECT MANAGER documented in this encounter [facility] 03-04-2024 Note HNO ID: [id number] Author: FAUZIA WAGNER APRN.PRINT PROJECT MANAGER Service: ? 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 Per rheumatology cbfsqv-jecrdial-iafmdgf (ZENPEP) 40,000-126,000- 168,000 unit delayed release capsule [...] due on 11/10/2026 (more content not included)... [facility] 01-16-2024 Telephone encounter Note Prescription Refill Information [...] Interiano LPN January 16, 2024 7:32 AM [facility] 01-16-2024 Miscellaneous Notes Prescription Refill Information The [...] 2024 7:32 AM documented in this encounter [facility] 12-08-2023 Telephone encounter Note The following approved medication requests have been transmitted electronically. Requested Prescriptions Signed Prescriptions Disp Refills rosuvastatin (CRESTOR) 5 mg tablet 90 tablet 1 Sig: Take 1 tablet by mouth once daily. Authorizing Provider: BAIRON TORRES MD [facility] 12-08-2023 Miscellaneous Notes The following approved medication [...] 2023 8:26 AM documented in this encounter [facility] 12-08-2023 Telephone encounter Note Prescription Refill Information [...] Dotson LPN December 08, 2023 8:26 AM [facility] 11-11-2023 Instructions Hue Torres PA-C - 11/11/2023 4:24 PM EDT No changes to medications Increase calorie intake (ensure drinks, high calorie foods) Follow up in 4-5 months documented in this encounter [facility] 11-11-2023 Note HNO ID: [id number] Author: HUE TORRES PA-C Service: ? Author Type: Physician Vice President Investor Relations Type: Progress Notes Filed: 11/11/2023 16:48 Note Text: [facility] Name: Guicho Martinez [...] dementia. Unfortunately, was unable to do a [place] due to time constraints. 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 Patient's primary concern today was her [...] date: Benign neopl (more content not included)... [facility] 11-11-2023 History of Present illness Narrative Images from the original note were not included. [facility] Name: Guicho Martinez [...] dementia. Unfortunately, was unable to do a [place] due to time constraints. 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 Patient's primary concern today was her [...] tablet by mouth once daily. Per rheumatology wzatkm-czhbrmbb-enxgtib (ZENPEP) 40,000-126,000- 168,000 unit delayed release capsule [...] 4.00 k/uL Monocytes % 9.9 % Abs Adams 0.67 <0.87 k/uL Eosinophils % 4.3 % [...] acute disease.... This note was dictated using Lineagen speech recognition software and may contain some [...] which included preparing to see the patient, fwkf-lw-kdbn patient care, completing clinical documentation, obtaining and/or reviewing separately obtained history, performing a medically appropriate examination, and counseling and educating the patient/family/caregiver. documented in this encounter [facility] 10-22-2023 Telephone encounter Note Spoke with daughter and gave results. Keerthi Go MA [facility] 10-22-2023 Miscellaneous Notes Spoke with daughter and gave results. Keerthi Go MA Let daughterMarimar, know her mother's labs were al good. documented in this encounter [facility] 10-22-2023 Telephone encounter Note Let daughterMarimar, know her mother's labs were al good. [facility] 10-21-2023 History of Present illness Narrative Images [...] tablet by mouth once daily. Per rheumatology owcbzj-gfxihfdy-mrqfscn (ZENPEP) 40,000-126,000- 168,000 unit delayed release capsule [...] which included preparing to see the patient, mday-wi-noie patient care, completing clinical documentation, performing a medically appropriate examination, counseling and educating the patient/family/caregiver and ordering medications, tests, or procedures. Bairon Torres MD documented in this encounter [facility] 10-21-2023 Note HNO ID: [id number] Author: BAIRON TORRES MD Service: ? Author [...] as PCP - General (Family Medicine) [facility]/Family history review Reviewed and updated problem [...] repair No d (more content not included)... [facility] 10-21-2023 Instructions Bairon Torres MD - 10/21/2023 [...] review all the medicines you take, even nsgq-cqm-flznsuw medicines. As you get older, the way [...] certain medical conditions. documented in this encounter [facility] 10-14-2023 Telephone encounter Note Prescription Refill Information [...] Figueroa LPN October 14, 2023 8:05 AM [facility] 10-14-2023 Miscellaneous Notes Prescription Refill Information The [...] 2023 8:05 AM documented in this encounter [facility] 08-26-2023 Telephone encounter Note Faxed to Tonie Go MA [facility] 08-26-2023 Miscellaneous Notes Faxed to Tonie Go MA Order ready Order pended, please file if agreeable documented in this encounter [facility] 08-25-2023 Telephone encounter Note Order ready T [facility] 08-25-2023 Telephone encounter Note Order pended, please file if agreeable [facility] 08-12-2023 Telephone encounter Note Images from the [...] 294.20, ICD10: F03.90 Patient stable from previous. [place] today was . Patient has stopped driving [...] on weight Follow up in 5 months [facility] 08-12-2023 Miscellaneous Notes Images from the original [...] 294.20, ICD10: F03.90 Patient stable from previous. [place] today was 1525. Patient has stopped driving [...] in 5 months documented in this encounter [facility] 07-14-2023 Telephone encounter Note Patient has been [...] Please advise. Thank you. Tanisha Peña LPN. [facility] 07-14-2023 Miscellaneous Notes Patient has been identified [...] Tanisha Peña LPN. documented in this encounter [facility] 06-17-2023 Miscellaneous Notes The following approved medication requests have been transmitted electronically. Requested Prescriptions Signed Prescriptions Disp Refills rosuvastatin (CRESTOR) 10 mg tablet 45 tablet 1 Sig: Take 1 tablet by mouth every other day. Bairon Torres MD Patient's daughter would like Alma Rosa rhona to ship to the patient. Keerthi Go MA documented in this encounter [facility] 05-23-2023 Miscellaneous Notes Call to Marimar and [...] Amina Weaver Ma documented in this encounter [facility] 05-15-2023 Miscellaneous Notes This has been sent. [...] Hue Torres PA-C documented in this encounter [facility] 02-06-2023 Miscellaneous Notes Patient has been identified [...] Hue Torres PA-C documented in this encounter [facility] 01-20-2023 Miscellaneous Notes Patient phones requesting refills as follows: Requested Prescriptions Pending Prescriptions Disp Refills alendronate (FOSAMAX) 35 mg tablet 12 tablet 1 Sig: Take on empty stomach in the morning with 8 oz of water. After taking do not have food, drink, medications, or supplements for at least one half-hour. Take 1 tablet PO once each week. ROSEMARIE 09/04/22 OJE NOV 03/13/23 DK Please review and advise. Simone Trevino documented in this encounter [facility] 01-16-2023 Miscellaneous Notes Pt's daughter notified of results and instructions. Santiago Pineda LPN Let daughter Marimar the us of the neck artery shows no increase in the narrowing of Guicho's neck. No changes needed. Received results of pt's carotid US. Santiago Pineda [employer]VEY[employer] MECH[employer]IC Scan on 01/15/2023 3:43 PM by Provider, VICTOR MANUEL Escudero: Ultrasound documented in this encounter [facility] 01-08-2023 Miscellaneous Notes Letter was taken to medical records. Keerthi Go MA Let Marimar know letter is ready to be picked up. documented in this encounter [facility] 12-10-2022 Miscellaneous Notes Order faxed to [facility] along with [employer]. Notified via [employer] that they can call to schedule. Sameera Roth Ma documented in this encounter [facility] 09-04-2022 Instructions Bairon Torres MD - 09/04/2022 5:46 PM EDT Please get labs done on or after 02/21/2023 prior to your next visit. documented in this encounter [facility] 09-04-2022 History of Present illness Narrative Medicare Yearly Visit Medical B eligibilty date Not able to find Date of last exam NA PAST MEDICAL HISTORY Diagnosis Date Advance directive discussed with patient 03/06/2022 Discussed 03/2022: up to date Benign neoplasm of colon Bilateral carotid artery stenosis 01/08/2022 US: 07/2021 Allen 40-60% Chronic ITP (idiopathic thrombocytopenia) ([facility]) 06/10/2013 Dementia of the Alzheimer's type, with late onset, uncomplicated ([facility]) 05/08/2022 Diverticulosis of colon (without mention of hemorrhage) Dysmetabolic syndrome X 07/09/2005 Elevated blood sugar 07/23/2021 Elevated TSH 07/23/2021 Encounter for Medicare annual wellness exam 09/04/2022 Medicare Part B: Not able to find Last done: 09/04/2022 Family history of malignant neoplasm of gastrointestinal tract 01/09/2005 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 Ashby this was a ruptured diverticulosis blood vessel. [...] 1 tablet by mouth every other day. stegdl-xdfqfblk-dhjnjhq (ZENPEP) 40,000-126,000- 168,000 unit delayed release capsule [...] Lymph 1.00 - 4.00 k/uL 1.22 1.11 Adams% % 10.6 7.6 Abs Adams <0.87 k/uL 0.62 0.42 Eosin% % 2.1 [...] Ketones, Urine Trace, Negative Negative Negative Specific [place], Ur 1.005 - 1.030 1.012 1.005 Hemoglobin/Blood,Ur [...] diet of 1000 mg/day for under 50, 3172-3539 mg/day for 50+ - Follow up for [...] which included preparing to see the patient, kfrq-re-hejw patient care, completing clinical documentation, performing a medically appropriate examination, counseling and educating the patient/family/caregiver and ordering medications, tests, or procedures. Bairon Torres MD documented in this encounter [facility] 08-29-2022 Miscellaneous Notes As requested by patient [...] a new script be sent to the [facility] in [place] with the instructions take 1 capsule in the morning and 2 capsules at night with the dosage being 1.5 mg. Alice also states she has spoken with [facility] pharmacy and they are able to mail medication to patient, therefore daughter is asking for 2 refills to be available as well. This staff pended script if provider is agreeable. SALTY Coleman Patient's daughter Alice called in and has some questions about mother's medication. Please call her at [phone]. Per last OV with MQ on 07/24/22 [...] you. SALTY Coleman documented in this encounter [facility] 08-28-2022 Miscellaneous Notes Notified the patient's daughter that the new RX was sent. Updated prescription sent to [facility]. Please send corrected dosage RX to [facility]. Daughter called, she is at [facility]. She is trying to orange picker the RX. The RX was increased [...] Josue Gomez MD documented in this encounter [facility] 08-28-2022 History of Present illness Narrative Exelon dose increased to 3.0mg BID per 06/21/[address] Gomez. Updated prescription sent to pharmacy. documented in this encounter [facility] 08-28-2022 Miscellaneous Notes Prescription was sent by neuro. Closing encounter. documented in this encounter [facility] 08-28-2022 Miscellaneous Notes ROSEMARIE 07/24/22 with MQ NOV 11/27/22 with MQ Refill 06/25/22 with qty: 180 and 0 refills Pt is taking 3 caps daily 1.5 in AM and 3.0 mg in PM Zoey Figueroa LPN ROSEMARIE Assessment/Plan ASSESSMENT/PLAN: 1. Dementia without behavioral disturbance, [...] Hue Torres PA-C documented in this encounter [facility] 08-26-2022 Miscellaneous Notes The following approved medication [...] Sameera Roth Ma documented in this encounter [facility] 07-15-2022 Miscellaneous Notes Requested Prescriptions Signed Prescriptions [...] Teresa Short MA documented in this encounter [facility] 06-28-2022 Miscellaneous Notes Spoke to [facility] pharmacy and they said a script was [...] weekend. Please advise. documented in this encounter [facility] 06-21-2022 History of Present illness Narrative NEW [...] forgetting names. Never lost driving. Lived in [facility] most of her life and is familiar [...] Serial 7s: 100-95 0 Orientation: , Friday, [place], X 5/ Delayed Recall: 03/07 (3/ with cue) Naming: (Rhino=Hippo, Giraffe=Camel) 0 Cube Drawin A tap: 03/03 A-1-B-2-C-3... 0 Clock Drawing (1 for kenaitze) 03/05 TOTAL: REVIEW OF SYSTEMS GENERAL:No weight [...] (no units) Date Value 06/10/2013 Negative MEDICATIONS: ocdzzv-rwkvudgw-pazzpwn (ZENPEP) 40,000-126,000- 168,000 unit delayed release capsule [...] dysarthria; comprehension, naming, repetition intact. Short and correction memory intact. Fund of knowledge grossly normal [...] which included preparing to see the patient, znom-ng-irzp patient care, completing clinical documentation, obtaining and/or [...] your PCP/referring physician. documented in this encounter [facility] 05-18-2022 History of Present illness Narrative Scan on 05/10/2022 11:09 AM by External Provider: Discharge Summary Scan on 05/10/2022 11:12 AM by External Provider: Pathology Scan on 05/15/2022 3:45 PM by External Provider: Hematology Scan on 05/15/2022 4:18 PM by External Provider: Jacki Go MA documented in this encounter [facility] 05-08-2022 History of Present illness Narrative Chief Complaint Patient presents with: Follow Up: Patient is here for follow up on memory. HPI Guicho Martinez is a 86 year old female who presents here today for Above Complaints.. Patient was recently in the hospital for a lower GI bleed. Her Hg never dropped and did not need transfused. Ashby this was a ruptured diverticulosis blood vessel. [...] on File Prior to Visit Medication Sig gwkzyf-lelknhaz-ybldlep (ZENPEP) 40,000-126,000- 168,000 unit delayed release capsule [...] 1.5 mg twice a day an f/u flower month Requested Prescriptions Signed Prescriptions Disp Refills rivastigmine tartrate (EXELON) 1.5 mg capsule 60 capsule 1 Sig: Take 1 capsule by mouth twice daily. F/u one month Bairon Torres MD documented in this encounter [facility] 04-25-2022 Discharge summary Note Date/Time April 25, 2022 1:17pm [facility] Medical Records Department [address] [place] [address] Discharge Summary 04/25/22 1315 MR#: [id number] Acct: [id number] Name: Jaye MARTINEZ Rep #:[id number] : 1935 86 From: Sameera Jones DO PCP: Dr. Bairon Torres MD Status:ADM IN [facility] Prov[facility] Date of Admission: 04/24/22 [...] 10,000 mcg PO DAILY hair growth 04/24/22 hsxhdpwcxyod-eqitxqpf-osbwld tablet 1 tab PO DAILY 04/24/22 rivastigmine [...] % (Auto) 65.6, Lymph % (Auto) 20.2, Adams % (Auto) 8.0, Eos % (Auto) 5.1 [...] (Auto) 69.2, Lymph % (Auto) 16.2 L, Adams % (Auto) 10.3 H, Eos % (Auto) [...] 200 MG tablet 200 mg PO DAILYCM gpdhjgfzklux-ewjqsqic-gtmhrd Tablet 1 tab PO DAILY rosuvastatin [Crestor] [...] Self Care Charges/Coding Visit Charges Inpatient E&M: 20688 Disch Hosp 04/25/22 1320 <Electronically signed by Sameera Jones DO> Cosigner Signature (if applicable): CC: Dr. Bairon Torres MD; Dr. Sameera Jones DO~ Signed [facility] Work Phone: 1(955) 412-257302-23-2023 History of Present illness Narrative* Keerthi Go MA - 04/25/2022 1:27 PM EST Scan on 04/24/2022 6:24 PM by External Provider: Consultation - Emergency Medicine Scan on 04/24/2022 6:38 PM by External Provider: Consultation - GI Scan on 04/24/2022 6:58 PM by External Provider: Consultation - Emergency Medicine PLEASE REVIEW. Keerthi Go MA [facility]02-23-2023 Procedure [facility]02-22-2023 History and physical note Author Dr. Espinal [facility] April 24, 2022 6:53pm Note Date/Time April 24, 2022 5:04pm [facility] Medical Records Department [address] [place] [address] H&P Exam - Hospitalist 04/24/22 1657 MR#: [id number] Acct: [id number] Name: Jaye MARTINEZ Rep #:[id number] : 1935 86 From: Eduardo Jj PCP: Dr. Bairon Torres MD Status:ADM EDDIE Location: PCU [id number] HPI - General General Date of [...] range as per age. H&H on baseline. [facility] Medical History Anemia Back pain [...] hair growth 04/24/22 [History Last Taken Unknown] ltxboyyhtyip-nyhbvnxh-slgnov tablet 1 tab PO DAILY 04/24/22 [History [...] % (Auto) 65.6, Lymph % (Auto) 20.2, Adams % (Auto) 8.0, Eos % (Auto) 5.1 [...] Her daughter, Mrs. Phillips is power of assistant county attorney for health, present in ED. After discussion of benefits/risks procedures involved with full code, DNR CC arrest and DNR CC, the patient opted for full code. Patient does want artificial life support including intubation, tube feed, ventilator and/chest compression, central venous catheter, vasopressor and DC shock if needed Total time spent in qwob-cf-wcwn encounter in discussion of advanced directive 16 [...] % (Auto) 65.6, Lymph % (Auto) 20.2, Adams % (Auto) 8.0, Eos % (Auto) 5.1 [...] APTT 28.7 Charges/Coding Visit Charges Inpatient E&M: 04795 Init Hosp L3 Procedures Hospitalists Procedures: 60547 Advncd Care Plan 30 Min 04/24/22 1713 [...] MD; Dr. Eduardo Espinal MD ~* Signed [facility] Work Phone: 1(961) 550-669902-22-2023 Consult note Author Valdemar Friend [facility] April 24, 2022 6:13pm Note Date/Time April 24, 2022 6:11pm [facility] Medical Records Department [address] [place] [address] [place] [address] Consultation - GI 04/24/22 1809 MR#: [id number] Acct: [id number] Name: Jaye MARTINEZ Rep #:[id number] : 1935 86 From: Valdemar Friend DO PCP: Dr. Bairon Torres MD Status:ADM EDDIE Location: [place] [address] HPI Consult Data Date of Consult: 04/24/22 [...] 12.9 and her BUN/creatinine ratio was 14/1. [facility] Medical History Anemia Back pain [...] hair growth 04/24/22 [History Last Taken Unknown] npoonjqzzenx-bnxznfeg-tdpjck tablet 1 tab PO DAILY 04/24/22 [History [...] % (Auto) 65.6, Lymph % (Auto) 20.2, Adams % (Auto) 8.0, Eos % (Auto) 5.1 [...] of 3. Charges/Coding Visit Charges Inpatient E&M: 21282 Init Hosp L2 04/24/221812 <Electronically signed by Valdemar Friend DO> Cosigner Signature (if applicable): CC: Dr. Bairon Torres MD~ Signed [facility] Work Phone: 1(748) 654-771002-22-2023 History of Present illness Narrative* Keerthi Go MA - 04/24/2022 7:07 PM EST Scan on 04/24/2022 5:38 PM by External Provider: Consultation - Emergency Medicine Please review. Keerthi Go MA [facility] Powell [facility] April 24, 2022 4:04pm Note Date/Time April 24, 2022 2:02pm [facility] Medical Records Department [address] [place] [address] Emergency Department Summary 04/24/22 MR#: [id number] Acct: [id number] Name: Jaye MARTINEZ Rep #:[id number] : [...] for this. [facility] is [facility]agulants. [facility] History Anemia Back pain [...] % (Auto) 65.6 Lymph % (Auto) 20.2 Adams % (Auto) 8.0 Eos % (Auto) 5.1 [...] Primary Care Provider: Bairon Torres Referrals: Bairon oTrres MD [Primary Care Provider] - Disposition Disposition: Acute Care Hospital [facility] What to do if you have Problems For any increased pain, shortness of breath, bleeding, nausea or vomiting, chestpain, or any unexpected problems, contact your Primary Care Provider. Call [facility] ([phone]) or report to the closest Emergency Room. Call 911 if necessary. 04/24/22 1607 <Electronically signed by Katerina Powell MD> Cosigner Signature (if applicable): CC: Dr. Bairon Torres MD ~ Signed [facility] Work Phone: 1(958) 870-999602-13-2023 Miscellaneous Notes* Telephone Encounter - Keerthi Go [...] symptoms no Tx needed. [facility] Miscellaneous Notes* Telephone Encounter - Bairon Torres MD - 04/08/2022 12:31 PM EST The following approved medication requests have been transmitted electronically. Requested Prescriptions Signed Prescriptions Disp Refills rivastigmine tartrate (EXELON) 1.5 mg capsule 30 capsule 1 Sig: Take 1 capsule by mouth once daily. Authorizing Provider: BAIRON TORRES MD * Telephone Encounter - Keerthi Go [...] refill; 03/28/2022 5 capsules [facility] History of Present illness Narrative* Destini Agarwal [...] 01, 2022 3:03 PM documented in [facility] Miscellaneous Notes* Telephone Encounter - Bairon Torres [...] capsules. Pended as requested. documented in [facility] [place] Instructions* Patient Instructions* Bairon Torres MD - [...] to your next visit. [facility] [place] History of Present illness Narrative* Bairon Torres [...] References: 1. Folstein MF, Folstein SE, [place]. Mini-Mental State: a practical method for grading [...] in patients with probable Alzheimer's disease. Neurology. 1992;42:1232-3662. Component Latest Ref Rng & Units 07/23/2021 [...] Abs Lymph 1.00 - 4.00 k/uL 1.22 Adams% % 10.6 Abs Adams <0.87 k/uL 0.62 Eosin% % 2.1 Abs [...] Negative Ketones, Urine Trace, Negative Negative Specific [place], Ur 1.005 - 1.030 1.012 Hemoglobin/Blood,Ur Negative, Trace Negative pH, Urine 5.0 - 8.0 6.5 Protein, Urine Trace, Negative Negative Urobilinogen Negative Negative Nitrites Negative Negative Leukest Negative, 25 Klio/mL Negative WBC, Urine 0-5 /HPF 0-5 /HPF [...] which included preparing to see the patient, sdfj-vm-uakt patient care, completing clinical documentation, performing a medically appropriate examination, counseling and educating the patient/family/caregiver and ordering medications, tests, or procedures. Bairon Torres MD documented [facility] [place] Miscellaneous Notes* Telephone Encounter - Heather Smith [...] and advise. Heather Smith documented in this [facility] [place] Miscellaneous Notes* Telephone Encounter - Katherine Ruff [...] Louis L Isaacs, DO documented in this encounter[facility] [place] History of Present illness Narrative* Louis Isaacs [...] with the plan. Louis Isaacs DO [address] [place] [address] documented in this encounter[facility] [place]2022 Miscellaneous Notes* Telephone Encounter - Teresa Burleson [...] patient. Teresa Burleson Pss documented in this encounter[facility] [place] Instructions* Patient Instructions* Jon Wilhelm - 05/21/2021 [...] any) may work best for you. References [place] [employer] Head [employer]. Earwax Accessed 02/17/2013. [place] [employer]Eetc[employer]rc[employer]rj[employer]. Nothing Smaller Than Your Elbow, Please Accessed 02/17/2013. Copyright 0473-9759 The [facility]. All rights reserved This information is provided by the [facility] and is not intended to replace the medical advice of your doctor or health care provider. Please consult your health care provider for advice about a specific medical condition. For additional health information, please contact the [facility] [employer] at the [facility] or toll-free extension [phone]. If you prefer, you may visit [email or web address] or [email or web address]. This document was last reviewed on: 2016 documented in this encounter[facility] [place] History of Present illness Narrative* Angelica Martinez APRN.PRINT PROJECT MANAGER - 05/21/2021 2:48 PM EDT This note was created using [employer]. Subjective Guicho Martinez is a 85 year [...] medical evaluation if any occur. TEACHING PROVIDER (Physician/PA/SENIOR CLINICAL PROJECT MANAGER) NOTE OF PERSONAL INVOLVEMENT IN CARE: I have personally seen and examined the patient and performed the medical decision-making components. I have reviewed the Advanced Practice Registered Nurse (SENIOR CLINICAL PROJECT MANAGER) Student's documentation and verified the findings in the note as written. Any additions or changes are noted in bold/italics. 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 Overview: surgically corrected December 2013 ITP (idiopathic thrombocytopenic purpura) 06/10/2013 Overview: History of episode in 2000 documented as of this encounter (statuses as of 05/21/2021) [facility] History of Past illness Narrative* Problem Noted Date Resolved Date 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 Overview: surgically corrected December 2013 ITP (idiopathic thrombocytopenic purpura) 06/10/2013 Overview: History of episode in 2000 documented as of this encounter (statuses as of 06/20/2021) [facility] History of Past illness Narrative* Problem Noted Date Resolved Date 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 Overview: surgically corrected December 2013 ITP (idiopathic thrombocytopenic purpura) 06/10/2013 Overview: History of episode in 2000 documented as of this encounter (statuses as of 07/23/2021) [facility] History of Past illness Narrative* Problem Noted Date Resolved Date 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 Overview: surgically corrected December 2013 ITP (idiopathic thrombocytopenic purpura) 06/10/2013 Overview: History of episode in 2000 documented as of this encounter (statuses as of 07/26/2021) [facility] History of Past illness Narrative* Problem Noted Date Resolved Date 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 Overview: surgically corrected December 2013 ITP (idiopathic thrombocytopenic purpura) 06/10/2013 Overview: History of episode in 2000 documented as of this encounter (statuses as of 12/24/2021) [facility] History of Past illness Narrative* Problem Noted Date Resolved Date 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 Overview: surgically corrected December 2013 ITP (idiopathic thrombocytopenic purpura) 06/10/2013 Overview: History of episode in 2000 documented as of this encounter (statuses as of 03/08/2022) [facility] History of Past illness Narrative* Problem Noted Date Resolved Date 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 Overview: surgically corrected December 2013 ITP (idiopathic thrombocytopenic purpura) 06/10/2013 Overview: History of episode in 2000 documented as of this encounter (statuses as of 03/28/2022) [facility] History of Past illness Narrative* Problem Noted Date Resolved Date 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 Overview: surgically corrected December 2013 ITP (idiopathic thrombocytopenic purpura) 06/10/2013 Overview: History of episode in 2000 documented as of this encounter (statuses as of 04/08/2022) [facility] History of Past illness Narrative* Problem Noted Date Resolved Date 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 Overview: surgically corrected December 2013 ITP (idiopathic thrombocytopenic purpura) 06/10/2013 Overview: History of episode in 2000 documented as of this encounter (statuses as of 04/15/2022) [facility] History of Past illness Narrative* Problem Noted Date Resolved Date 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 Overview: surgically corrected December 2013 ITP (idiopathic thrombocytopenic purpura) 06/10/2013 Overview: History of episode in 2000 documented as of this encounter (statuses as of 04/25/2022) [facility] [place]08-[facility]2014 History of Past illness Narrative* Problem Noted Date Resolved Date 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 Overview: surgically corrected December 2013 ITP (idiopathic thrombocytopenic purpura) 06/10/2013 Overview: History of episode in 2000 documented as of this encounter (statuses as of 04/26/2022) [facility] [place]2014 History of Past illness Narrative* Problem Noted Date Resolved Date 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 Overview: surgically corrected December 2013 ITP (idiopathic thrombocytopenic purpura) 06/10/2013 Overview: History of episode in 2000 documented as of this encounter (statuses as of 05/09/2022) [facility] [place]-07[facility]2014 History of Past illness Narrative* Problem Noted Date Resolved Date 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 Overview: surgically corrected December 2013 ITP (idiopathic thrombocytopenic purpura) 06/10/2013 Overview: History of episode in 2000 documented as of this encounter (statuses as of 05/19/2022) [facility] [place]2014 History of Past illness Narrative* Problem Noted Date Resolved Date 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 Overview: surgically corrected December 2013 ITP (idiopathic thrombocytopenic purpura) 06/10/2013 Overview: History of episode in 2000 documented as of this encounter (statuses as of 06/22/2022) [facility] [place]2014 History of Past illness Narrative* Problem Noted Date Resolved Date 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 Overview: surgically corrected December 2013 ITP (idiopathic thrombocytopenic purpura) 06/10/2013 Overview: History of episode in 2000 documented as of this encounter (statuses as of 06/25/2022) [facility] [place]2014 History of Past illness Narrative* Problem Noted Date Resolved Date 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 Overview: surgically corrected December 2013 ITP (idiopathic thrombocytopenic purpura) 06/10/2013 Overview: History of episode in 2000 documented as of this encounter (statuses as of 06/28/2022) [facility] [place]2014 History of Past illness Narrative* Problem Noted Date Resolved Date 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 Overview: surgically corrected December 2013 ITP (idiopathic thrombocytopenic purpura) 06/10/2013 Overview: History of episode in 2000 documented as of this encounter (statuses as of 07/16/2022) [facility] [place]2014 History of Past illness Narrative* Problem Noted Date Resolved Date 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 Overview: surgically corrected December 2013 ITP (idiopathic thrombocytopenic purpura) 06/10/2013 Overview: History of episode in 2000 documented as of this encounter (statuses as of 08/27/2022) [facility] [place]2014 History of Past illness Narrative* Problem Noted Date Resolved Date 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 Overview: surgically corrected December 2013 ITP (idiopathic thrombocytopenic purpura) 06/10/2013 Overview: History of episode in 2000 documented as of this encounter (statuses as of 08/28/2022) [facility] [place]08-07[facility]2014 History of Past illness Narrative* Problem Noted Date Resolved Date 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 Overview: surgically corrected December 2013 ITP (idiopathic thrombocytopenic purpura) 06/10/2013 Overview: History of episode in 2000 documented as of this encounter (statuses as of 08/28/2022) [facility] [place]08-[facility]2014 History of Past illness Narrative* Problem Noted Date Resolved Date 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 Overview: surgically corrected December 2013 ITP (idiopathic thrombocytopenic purpura) 06/10/2013 Overview: History of episode in 2000 documented as of this encounter (statuses as of 08/29/2022) [facility] [place]2014 History of Past illness Narrative* Problem Noted Date Resolved Date 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 Overview: surgically corrected December 2013 ITP (idiopathic thrombocytopenic purpura) 06/10/2013 Overview: History of episode in 2000 documented as of this encounter (statuses as of 08/29/2022) [facility] [place]2014 History of Past illness Narrative* Problem Noted Date Resolved Date 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 Overview: surgically corrected December 2013 ITP (idiopathic thrombocytopenic purpura) 06/10/2013 Overview: History of episode in 2000 documented as of this encounter (statuses as of 08/30/2022) [facility] [place]2014 History of Past illness Narrative* Problem Noted Date Resolved Date 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 Overview: surgically corrected December 2013 ITP (idiopathic thrombocytopenic purpura) 06/10/2013 Overview: History of episode in 2000 documented as of this encounter (statuses as of 09/05/2022) [facility] [place]08-07[facility]2014 History of Past illness Narrative* Problem Noted Date Diagnosed Date Resolved Date 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 06/21/2015 Overview: surgically corrected December 2013 ITP (idiopathic thrombocytopenic purpura) 06/10/2013 Overview: History of episode in 2000 documented as of this encounter (statuses as of 12/11/2022) [facility] [place]08-[facility]2014 History of Past illness Narrative* Problem Noted Date Diagnosed Date Resolved Date 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 06/21/2015 Overview: surgically corrected December 2013 ITP (idiopathic thrombocytopenic purpura) 06/10/2013 Overview: History of episode in 2000 documented as of this encounter (statuses as of 01/05/2023) [facility] [place]08-[facility]2014 History of Past illness Narrative* Problem Noted Date Diagnosed Date Resolved Date 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 06/21/2015 Overview: surgically corrected December 2013 ITP (idiopathic thrombocytopenic purpura) 06/10/2013 Overview: History of episode in 2000 documented as of this encounter (statuses as of 01/09/2023) [facility] [place]08-[facility]2014 History of Past illness Narrative* Problem Noted Date Diagnosed Date Resolved Date 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 06/21/2015 Overview: surgically corrected December 2013 ITP (idiopathic thrombocytopenic purpura) 06/10/2013 Overview: History of episode in 2000 documented as of this encounter (statuses as of 01/16/2023) [facility] [place]2014 History of Past illness Narrative* Problem Noted Date Diagnosed Date Resolved Date 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 06/21/2015 Overview: surgically corrected December 2013 ITP (idiopathic thrombocytopenic purpura) 06/10/2013 Overview: History of episode in 2000 documented as of this encounter (statuses as of 01/21/2023) [facility] [place]08-07[facility]2014 History of Past illness Narrative* Problem Noted Date Diagnosed Date Resolved Date 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 06/21/2015 Overview: surgically corrected December 2013 ITP (idiopathic thrombocytopenic purpura) 06/10/2013 Overview: History of episode in 2000 documented as of this encounter (statuses as of 02/06/2023) [facility] [place]2014 History of Past illness Narrative* Problem Noted Date Diagnosed Date Resolved Date 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 06/21/2015 Overview: surgically corrected December 2013 ITP (idiopathic thrombocytopenic purpura) 06/10/2013 Overview: History of episode in 2000 documented as of this encounter (statuses as of 05/15/2023) [facility] [place]08-07[facility]2014 History of Past illness Narrative* Problem Noted Date Diagnosed Date Resolved Date 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 06/21/2015 Overview: surgically corrected December 2013 ITP (idiopathic thrombocytopenic purpura) 06/10/2013 Overview: History of episode in 2000 documented as of this encounter (statuses as of 05/23/2023) [facility] [place]08-[facility]2014 History of Past illness Narrative* Problem Noted Date Diagnosed Date Resolved Date 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 06/21/2015 Overview: surgically corrected December 2013 ITP (idiopathic thrombocytopenic purpura) 06/10/2013 Overview: History of episode in 2000 documented as of this encounter (statuses as of 06/17/2023) [facility] [place] Diagnosis Bilateral impacted cerumen- Primary Impacted cerumen documented in this encounter [facility] [place] [facility]* Diagnosis Osteoporosis, unspecified osteoporosis type, unspecified pathological fracture presence [facility] noteNo assessment information availableWM[facility] Work Phone: [facility]* Diagnosis Osteoporosis, unspecified osteoporosis type, unspecified pathological fracture presence- Primary Hyperlipidemia, unspecified hyperlipidemia type Chronic ITP (idiopathic thrombocytopenia) (HCC) Immune thrombocytopenic purpura Stage 3a chronic kidney disease (HCC) Elevated TSH Nonspecific abnormal results of thyroid function study Hyperglycemia Other abnormal glucose Fatigue, unspecified type Right carotid bruit Other symptoms involving cardiovascular system [facility]* Diagnosis Osteoporosis, unspecified osteoporosis type, unspecified [...] Date Resolution Status Acute GI bleeding acute [facility] Work Phone: Evaluation note* Diagnosis Dementia of the Alzheimer's type, with late onset, uncomplicated (HCC)- Primary Alzheimer's disease [facility] Onset Date Resolution Status Acute GI bleeding resolved [facility] Work Phone: Evaluation note* Diagnosis Dementia without behavioral disturbance, psychotic disturbance, mood disturbance, or anxiety, unspecified dementia severity, unspecified dementia type (HCC)- Primary [facility] Osteoporosis, unspecified osteoporosis type, [...] classified elsewhere (HCC) [facility] Memory deficit Memory loss [...] history of fall [facility] Encounter for Medicare annual [...] of other medications documented in this encounter [facility]* Diagnosis Dementia without behavioral disturbance, psychotic disturbance, mood disturbance, or anxiety, unspecified dementia severity, unspecified dementia type (HCC)- Primary documented in this encounter [facility] [place]* Diagnosis Facial laceration, subsequent encounter- Primary Visit for suture removal Encounter for removal of sutures documented in this encounter [facility] Diagnosis Dementia of the Alzheimer's type, with late onset, uncomplicated (HCC)- Primary Alzheimer's disease documented in this encounter [facility]* Diagnosis Mixed hyperlipidemia- Primary Stage 3a [...] Corns and callosities documented in this encounter [facility]* Diagnosis Dementia without behavioral disturbance, psychotic disturbance, mood disturbance, or anxiety, unspecified dementia severity, unspecified dementia type (HCC)- Primary documented in this encounter [facility] [place]* Diagnosis Diarrhea, unspecified type- Primary documented in this encounter [facility] for referral (narrative)* Outpatient Procedure (Routine) - Authorized Specialty Diagnoses / Procedures Referred By Connor gandhi [facility] Diagnoses Right carotid bruit Procedures US CAROTID ARTERIES ALLEN VAS LAB DUPLEX SCAN EXTRACRANIAL ART COMPL BI STUDY Louis Isaacs, DO [address] [place] [address] [facility] [place] [address] [place] [address] Referral ID Status Reason Start Date Expiration Date Visits Requested Visits Authorized [id number] Authorized Auto-Generat ed Referral 07/23/2021 07/23/2022 1 1 [facility] (narrative)* Outpatient Procedure (Routine) - Pending Review Specialty Diagnoses / Procedures Referred By Contac t Referred To Contact [facility] Diagnoses Bilateral carotid artery stenosis Procedures US CAROTID ARTERIES ALLEN VAS LAB DUPLEX SCAN EXTRACRANIAL ART COMPL BI STUDY Bairon Torres MD [address] [place] [address] [facility] [address] [place] [address] Referral ID Status Reason Start Date Expiration Date Visits Requested Visits Authorized [id number] Pending Review Auto-Generat ed Referral 09/04/2022 09/04/2023 1 1 [facility] [place] Summary Purpose Family History No Family History Records FoundNo Family History Records FoundNo Family History Records Found Advance Directives Documents on File Type Date 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 Advance Directive(s) 02/15/2013 12:41 PM Advance Directive Response Recorded Date/ Time Advance Directives Yes December 02, 2013 9:19am Living Will No February 27 8:36pm Power of Onion Topper No February 27, 2021 8:36pm Documents on File Type Date 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 Advance Directive(s) 02/15/2013 12:41 PM Advance Directive Response Recorded Date/ Time Advance Directives Yes December 02, 2013 8:19am Living Will No March 09 3:28am Power of Onion Topper No March 09 023 3:28am Advance Directive Response Recorded Date/ Time Advance Directives Yes December 02, 2013 8:19am Living Will No March 11 1:56am Power of Onion Topper No March 11 023 1:56am Advance Directive Response Recorded Date/ Time Name of Medical Power of Onion Topper [email or web address] quigley April 24, 2022 4:45pm Advance Directives Yes December 02, 2013 8:19am Living Will Yes April 24, 023 4:45pm Power of Onion Topper Yes April 24, 2022 4:45pm Advance Directive Response Recorded Date/ Time Name of Medical Power of Onion Topper zechariah quigley April 24, 2022 5:45pm Advance Directives Yes December 02, 2013 9:19am Living Will Yes April 24 023 5:45pm Power of Onion Topper Yes April 24, 2022 5:45pm Advance Directive Response Recorded Date/ Time Advance Directives Yes December 02, 2013 8:19am Living Will Yes April 24 023 4:45pm Power of Onion Topper Yes April 24, 2022 4:45pm Chief Complaint [...] W/O CONTRAST MATERIAL Bairon Torres MD [address] [place] [address] Mr Imaging Referral ID Status Reason Start Date Expiration Date Visits Requested Visits Authorized [id number] Authorized Auto-Generat ed Referral 03/06/2022 04/05/2023 1 1 Specialty Diagnoses / Procedures Referred By Contac t Referred To Contact [facility] Diagnoses Memory deficit Procedures MRI BRAIN WO IVCON MRI BRAIN BRAIN STEM W/O CONTRAST MATERIAL Bairon Torres MD [address] [place] [address] Mr Imaging [facility] Referral ID Status Reason Start Date Expiration Date V isits Requested Visits Authorized [id number] Closed Auto-Generate d Referral 03/06/2022 04/05/2023 1 1 Additional Source Comments INFORMATION SOURCE (unrecogn ized section and content) DATE CREATED AUTHOR 08/26/2017 [facility] DATE CREATED AUTHOR AUTHOR'S ORGANIZ ATION 05/21/2024 [facility] DATE CREATED AUTHOR AUTHOR'S ORGANIZ ATION 08/22/2024 [facility] Source Comments (unrecognize d section and content) In the event this informatio n is protected by the Federal Confidentiality of Alcohol and Drug Abuse Patient Records regulations: The Federal rules restrict any use of the information to criminally investigate or prosecute any alcohol or drug abuse patient.[facility] [place] the event this information is protected by the Federal Confidentiality of Alcohol and Drug Abuse Patient Records regulations: The Federal rules restrict any use of the information to criminally investigate or prosecute any alcohol or drug abuse patient.[facility] [place] the event this information is protected by the Federal Confidentiality of Alcohol and Drug Abuse Patient Records regulations: The Federal rules restrict any use of the information to criminally investigate or prosecute any alcohol or drug abuse patient.[facility] [place] the event this information is protected by the Federal Confidentiality of Alcohol and Drug Abuse Patient Records regulations: The Federal rules restrict any use of the information to criminally investigate or prosecute any alcohol or drug abuse patient.[facility] [place] the event this information is protected by the Federal Confidentiality of Alcohol and Drug Abuse Patient Records regulations: The Federal rules restrict any use of the information to criminally investigate or prosecute any alcohol or drug abuse patient.[facility] [place] the event this information is protected by the Federal Confidentiality of Alcohol and Drug Abuse Patient Records regulations: The Federal rules restrict any use of the information to criminally investigate or prosecute any alcohol or drug abuse patient.[facility] [place] the event this information is protected by the Federal Confidentiality of Alcohol and Drug Abuse Patient Records regulations: The Federal rules restrict any use of the information to criminally investigate or prosecute any alcohol or drug abuse patient.[facility] [place]In the event this information is protected by the Federal Confidentiality of Alcohol and Drug Abuse Patient Records regulations: The Federal rules restrict any use of the information to criminally investigate or prosecute any alcohol or drug abuse patient.[facility] [place]In the event this information is protected by the Federal Confidentiality of Alcohol and Drug Abuse Patient Records regulations: The Federal rules restrict any use of the information to criminally investigate or prosecute any alcohol or drug abuse patient.[facility] [place] the event this information is protected by the Federal Confidentiality of Alcohol and Drug Abuse Patient Records regulations: The Federal rules restrict any use of the information to criminally investigate or prosecute any alcohol or drug abuse patient.[facility] [place] the event this information is protected by the Federal Confidentiality of Alcohol and Drug Abuse Patient Records regulations: The Federal rules restrict any use of the information to criminally investigate or prosecute any alcohol or drug abuse patient.[facility] [place]In the event this information is protected by the Federal Confidentiality of Alcohol and Drug Abuse Patient Records regulations: The Federal rules restrict any use of the information to criminally investigate or prosecute any alcohol or drug abuse patient.[facility] [place]In the event this information is protected by the Federal Confidentiality of Alcohol and Drug Abuse Patient Records regulations: The Federal rules restrict any use of the information to criminally investigate or prosecute any alcohol or drug abuse patient.[facility] [place]In the event this information is protected by the Federal Confidentiality of Alcohol and Drug Abuse Patient Records regulations: The Federal rules restrict any use of the information to criminally investigate or prosecute any alcohol or drug abuse patient.[facility] [place]In the event this information is protected by the Federal Confidentiality of Alcohol and Drug Abuse Patient Records regulations: The Federal rules restrict any use of the information to criminally investigate or prosecute any alcohol or drug abuse patient.[facility] [place]In the event this information is protected by the Federal Confidentiality of Alcohol and Drug Abuse Patient Records regulations: The Federal rules restrict any use of the information to criminally investigate or prosecute any alcohol or drug abuse patient.[facility] [place]In the event this information is protected by the Federal Confidentiality of Alcohol and Drug Abuse Patient Records regulations: The Federal rules restrict any use of the information to criminally investigate or prosecute any alcohol or drug abuse patient.[facility] [place]In the event this information is protected by the Federal Confidentiality of Alcohol and Drug Abuse Patient Records regulations: The Federal rules restrict any use of the information to criminally investigate or prosecute any alcohol or drug abuse patient.[facility] [place]In the event this information is protected by the Federal Confidentiality of Alcohol and Drug Abuse Patient Records regulations: The Federal rules restrict any use of the information to criminally investigate or prosecute any alcohol or drug abuse patient.[facility] [place]In the event this information is protected by the Federal Confidentiality of Alcohol and Drug Abuse Patient Records regulations: The Federal rules restrict any use of the information to criminally investigate or prosecute any alcohol or drug abuse patient.[facility] [place]In the event this information is protected by the Federal Confidentiality of Alcohol and Drug Abuse Patient Records regulations: The Federal rules restrict any use of the information to criminally investigate or prosecute any alcohol or drug abuse patient.[facility] [place]In the event this information is protected by the Federal Confidentiality of Alcohol and Drug Abuse Patient Records regulations: The Federal rules restrict any use of the information to criminally investigate or prosecute any alcohol or drug abuse patient.[facility] [place]In the event this information is protected by the Federal Confidentiality of Alcohol and Drug Abuse Patient Records regulations: The Federal rules restrict any use of the information to criminally investigate or prosecute any alcohol or drug abuse patient.[facility], BeachwoodIn the event this information is protected by the Federal Confidentiality of Alcohol and Drug Abuse Patient Records regulations: The Federal rules restrict any use of the information to criminally investigate or prosecute any alcohol or drug abuse patient.[facility], BeachwoodIn the event this information is protected by the Federal Confidentiality of Alcohol and Drug Abuse Patient Records regulations: The Federal rules restrict any use of the information to criminally investigate or prosecute any alcohol or drug abuse patient.[facility], BeachwoodIn the event this information is protected by the Federal Confidentiality of Alcohol and Drug Abuse Patient Records regulations: The Federal rules restrict any use of the information to criminally investigate or prosecute any alcohol or drug abuse patient.[facility], [place]woodIn the event this information is protected by the Federal Confidentiality of Alcohol and Drug Abuse Patient Records regulations: The Federal rules restrict any use of the information to criminally investigate or prosecute any alcohol or drug abuse patient.[facility], [place]woodIn the event this information is protected by the Federal Confidentiality of Alcohol and Drug Abuse Patient Records regulations: The Federal rules restrict any use of the information to criminally investigate or prosecute any alcohol or drug abuse patient.[facility], [place]woodIn the event this information is protected by the Federal Confidentiality of Alcohol and Drug Abuse Patient Records regulations: The Federal rules restrict any use of the information to criminally investigate or prosecute any alcohol or drug abuse patient.[facility], [place]woodIn the event this information is protected by the Federal Confidentiality of Alcohol and Drug Abuse Patient Records regulations: The Federal rules restrict any use of the information to criminally investigate or prosecute any alcohol or drug abuse patient.[facility], [place]woodIn the event this information is protected by the Federal Confidentiality of Alcohol and Drug Abuse Patient Records regulations: The Federal rules restrict any use of the information to criminally investigate or prosecute any alcohol or drug abuse patient.[facility], [place]woodIn the event this information is protected by the Federal Confidentiality of Alcohol and Drug Abuse Patient Records regulations: The Federal rules restrict any use of the information to criminally investigate or prosecute any alcohol or drug abuse patient.[facility], [place]woodIn the event this information is protected by the Federal Confidentiality of Alcohol and Drug Abuse Patient Records regulations: The Federal rules restrict any use of the information to criminally investigate or prosecute any alcohol or drug abuse patient.[facility], [place]woodIn the event this information is protected by the Federal Confidentiality of Alcohol and Drug Abuse Patient Records regulations: The Federal rules restrict any use of the information to criminally investigate or prosecute any alcohol or drug abuse patient.[facility], [place]woodIn the event this information is protected by the Federal Confidentiality of Alcohol and Drug Abuse Patient Records regulations: The Federal rules restrict any use of the information to criminally investigate or prosecute any alcohol or drug abuse patient.[facility], [place]woodIn the event this information is protected by the Federal Confidentiality of Alcohol and Drug Abuse Patient Records regulations: The Federal rules restrict any use of the information to criminally investigate or prosecute any alcohol or drug abuse patient.[facility], [place]woodIn the event this information is protected by the Federal Confidentiality of Alcohol and Drug Abuse Patient Records regulations: The Federal rules restrict any use of the information to criminally investigate or prosecute any alcohol or drug abuse patient.[facility], [place]woodIn the event this information is protected by the Federal Confidentiality of Alcohol and Drug Abuse Patient Records regulations: The Federal rules restrict any use of the information to criminally investigate or prosecute any alcohol or drug abuse patient.[facility], [place]woodIn the event this information is protected by the Federal Confidentiality of Alcohol and Drug Abuse Patient Records regulations: The Federal rules restrict any use of the information to criminally investigate or prosecute any alcohol or drug abuse patient.[facility], [place]woodIn the event this information is protected by the Federal Confidentiality of Alcohol and Drug Abuse Patient Records regulations: The Federal rules restrict any use of the information to criminally investigate or prosecute any alcohol or drug abuse patient.[facility], [place]woodIn the event this information is protected by the Federal Confidentiality of Alcohol and Drug Abuse Patient Records regulations: The Federal rules restrict any use of the information to criminally investigate or prosecute any alcohol or drug abuse patient.[facility], [place]woodIn the event this information is protected by the Federal Confidentiality of Alcohol and Drug Abuse Patient Records regulations: The Federal rules restrict any use of the information to criminally investigate or prosecute any alcohol or drug abuse patient.[facility], [place]woodIn the event this information is protected by the Federal Confidentiality of Alcohol and Drug Abuse Patient Records regulations: The Federal rules restrict any use of the information to criminally investigate or prosecute any alcohol or drug abuse patient.[facility], [place]woodIn the event this information is protected by the Federal Confidentiality of Alcohol and Drug Abuse Patient Records regulations: The Federal rules restrict any use of the information to criminally investigate or prosecute any alcohol or drug abuse patient.[facility], [place]woodIn the event this information is protected by the Federal Confidentiality of Alcohol and Drug Abuse Patient Records regulations: The Federal rules restrict any use of the information to criminally investigate or prosecute any alcohol or drug abuse patient.[facility], [place]woodIn the event this information is protected by the Federal Confidentiality of Alcohol and Drug Abuse Patient Records regulations: The Federal rules restrict any use of the information to criminally investigate or prosecute any alcohol or drug abuse patient.[facility], [place]woodIn the event this information is protected by the Federal Confidentiality of Alcohol and Drug Abuse Patient Records regulations: The Federal rules restrict any use of the information to criminally investigate or prosecute any alcohol or drug abuse patient.[facility], [place]woodIn the event this information is protected by the Federal Confidentiality of Alcohol and Drug Abuse Patient Records regulations: The Federal rules restrict any use of the information to criminally investigate or prosecute any alcohol or drug abuse patient.[facility], [place]woodIn the event this information is protected by the Federal Confidentiality of Alcohol and Drug Abuse Patient Records regulations: The Federal rules restrict any use of the information to criminally investigate or prosecute any alcohol or drug abuse patient.[facility], [place]woodIn the event this information is protected by the Federal Confidentiality of Alcohol and Drug Abuse Patient Records regulations: The Federal rules restrict any use of the information to criminally investigate or prosecute any alcohol or drug abuse patient.[facility], [place]woodIn the event this information is protected by the Federal Confidentiality of Alcohol and Drug Abuse Patient Records regulations: The Federal rules restrict any use of the information to criminally investigate or prosecute any alcohol or drug abuse patient.[facility], [place]woodIn the event this information is protected by the Federal Confidentiality of Alcohol and Drug Abuse Patient Records regulations: The Federal rules restrict any use of the information to criminally investigate or prosecute any alcohol or drug abuse patient.[facility], [place]woodIn the event this information is protected by the Federal Confidentiality of Alcohol and Drug Abuse Patient Records regulations: The Federal rules restrict any use of the information to criminally investigate or prosecute any alcohol or drug abuse patient.[facility], [place]woodIn the event this information is protected by the Federal Confidentiality of Alcohol and Drug Abuse Patient Records regulations: The Federal rules restrict any use of the information to criminally investigate or prosecute any alcohol or drug abuse patient.[facility], [place]woodIn the event this information is protected by the Federal Confidentiality of Alcohol and Drug Abuse Patient Records regulations: The Federal rules restrict any use of the information to criminally investigate or prosecute any alcohol or drug abuse patient.[facility], [place]woodIn the event this information is protected by the Federal Confidentiality of Alcohol and Drug Abuse Patient Records regulations: The Federal rules restrict any use of the information to criminally investigate or prosecute any alcohol or drug abuse patient.[facility], [place]woodIn the event this information is protected by the Federal Confidentiality of Alcohol and Drug Abuse Patient Records regulations: The Federal rules restrict any use of the information to criminally investigate or prosecute any alcohol or drug abuse patient.[facility], [place]woodIn the event this information is protected by the Federal Confidentiality of Alcohol and Drug Abuse Patient Records regulations: The Federal rules restrict any use of the information to criminally investigate or prosecute any alcohol or drug abuse patient.[facility] [place] Reason for Visit (unrecogniz ed section and [...] elsewhere (HCC) Procedures CONSULT TO NEUROLOGY OFFICE/OUTPATIENT [facility] 60-74 MINUTES Bairon Torres MD [facility] [place] [address] Referral ID Status Reason Start Date Expiration Date Visits Requested Visits Authorized [id number] Pending Review PCP Requested Referral 04/01/2022 04/01/2023 [...] STEM W/O CONTRAST MATERIAL Bairon Torres MD [facility] [place] [address] [place] [address] Referral ID Status Reason Start Date Expiration Date V isits Requested Visits Authorized [id number] Closed Auto-Generate d Referral 03/06/2022 04/05/2023 1 [...] new con cerns Reason Onset Date Comments Director Dermatology- Other 06/29/2024 Reason Onset Date Comments Results 08/19/2024 Care Teams (unrecognized sec tion and content) Youth Director Relationship Specialty Start Date End Date Louis Isaacs DO [address] [place] [address] PCP - General Family Practice 12/02/18 Youth Director Relationship Specialty Start Date End Date Louis Isaacs DO [address] [facility] [place] [address] PCP - General Family Practice 12/02/18 Youth Director Relationship Specialty Start Date End Date Louis Isaacs DO [address] [facility] [place] [address] PCP - General Family Practice 12/02/18 Youth Director Relationship Specialty Start Date End Date Louis Isaacs DO [address] [facility] [place] [address] PCP - General Family Practice 12/02/18 Youth Director Relationship Specialty Start Date End Date Louis Isaacs DO [address] [facility] [place] [address] PCP - General Family Medicine 12/02/18 Youth Director Relationship Specialty Start Date End Date Bairon Torres MD [address] [place] [address] PCP - General Family Medicine 01/04/22 Youth Director Relationship Specialty Start Date End Date Bairon Torres MD [address] [place] [address] PCP - General Family Medicine 01/04/22 Youth Director Relationship Specialty Start Date End Date Bairon Torres MD [address] [place] [address] PCP - General Family Medicine 01/04/22 Youth Director Relationship Specialty Start Date End Date Bairon Torres MD [address] [place] [address] PCP - General Family Medicine 01/04/22 Youth Director Relationship Specialty Start Date End Date Bairon Torres MD [address] [place] [address] PCP - General Family Medicine 01/04/22 Team [...] Torres MD Primary Care Provider Active Dr. Sarkis Dubon MD Attending Provider, Emergency Provi darren [...] Sameera Jones , DO Attending Provider Active Youth Director Relationship Specialty Start Date End Date Bairon Torres MD [address] [place] [address] PCP - General Family Medicine 01/04/22 Team Status: Active Member Role Status Dates Dr. Bairon Torres MD Primary Care Provider Active Dr. Jia Cleary MD Attending Provider Active Dr. Eduardo Espinal MD Referring Provider Active Team Status: Inactive Member Role Status Dates Dr. Bairon Torres MD Primary Care Provider Active Dr. Samara Guzmán MD Attending Provider, Referring Provider Active Youth Director Relationship Specialty Start Date End Date Bairon Torres MD [address] [place] [address] PCP - General Family Medicine 01/04/22 Youth Director Relationship Specialty Start Date End Date Bairon Torres MD [address] [place] [address] PCP - General Family Medicine 01/04/22 Youth Director Relationship Specialty Start Date End Date Bairon Torres MD [address] [place] [address] PCP - General Family Medicine 01/04/22 Youth Director Relationship Specialty Start Date End Date Bairon Torres MD [address] [place] [address] PCP - General Family Medicine 01/04/22 Youth Director Relationship Specialty Start Date End Date Bairon Torres MD [address] [place] [address] PCP - General Family Medicine 01/04/22 Youth Director Relationship Specialty Start Date End Date Bairon Torres MD [address] [place] [address] PCP - General Family Medicine 01/04/22 Youth Director Relationship Specialty Start Date End Date Bairon Torres MD [address] [place] [address] PCP - General Family Medicine 01/04/22 Team Status: Active Member Role Status Dates Dr. Bairon Torres MD Primary Care Provider, Referri ng Provider Active Dr. Jesus Manuel Coronado MD Attending Provider Active Team Status: Inactive Member Role Status Dates Dr. Bairon Torres MD Primary Care Pro vider, Attending Provider, Referring Provider Active Youth Director Relationship Specialty Start Date End Date Bairon Torres MD [address] [place] [address] PCP - General Family Medicine 01/04/22 Youth Director Relationship Specialty Start Date End Date Bairon Torres MD [address] [place] [address] PCP - General Family Medicine 01/04/22 Youth Director Relationship Specialty Start Date End Date Bairon Torres MD [address] [place] [address] PCP - General Family Medicine 01/04/22 Youth Director Relationship Specialty Start Date End Date Bairon Torres MD [address] [place] [address] PCP - General Family Medicine 01/04/22 Youth Director Relationship Specialty Start Date End Date Bairon Torres MD [address] [place] [address] PCP - General Family Medicine 01/04/22 Youth Director Relationship Specialty Start Date End Date Bairon Torres MD [address] [place] [address] PCP - General Family Medicine 01/04/22 Youth Director Relationship Specialty Start Date End Date Bairon Torres MD [address] [place] [address] PCP - General Family Medicine 01/04/22 Youth Director Relationship Specialty Start Date End Date Bairon Torres MD [address] [place] [address] PCP - General Family Medicine 01/04/22 Youth Director Relationship Specialty Start Date End Date Bairon Torres MD [address] [place] [address] PCP - General Family Medicine 01/04/22 Youth Director Relationship Specialty Start Date End Date Bairon Torres MD [address] [place] [address] PCP - General Family Medicine 01/04/22 Youth Director Relationship Specialty Start Date End Date Bairon Torres MD [address] [place] [address] PCP - General Family Medicine 01/04/22 Fauzia Wagner, SENIOR CLINICAL PROJECT MANAGER.PRINT PROJECT MANAGER [address] [place] [address] Special Delivery Worker Family Medicine 02/07/24 Carolyn Asher PA-C [address] [place] [address] Special Delivery Worker Family Medicine 02/07/24 Youth Director Relationship Specialty Start Date End Date Bairon Torres MD [address] [place] [address] PCP - General Family Medicine 01/04/22 Fauzia Wagner APRN.PRINT PROJECT MANAGER [address] [place] [address] Special Delivery Worker Family Medicine 02/07/24 Carolyn Asher PA-C [address] [place] [address] Special Delivery Worker Family Medicine 02/07/24 Youth Director Relationship Specialty Start Date End Date Bairon Torres MD [address] [place] [address] PCP - General Family Medicine 01/04/22 Fauzia Wagner, JORGE.PRINT PROJECT MANAGER [address] [place] [address] Special Delivery Worker Family Medicine 02/07/24 Carolyn Asher PA-C [address] [place] [address] Special Delivery Worker Family Medicine 02/07/24 Youth Director Relationship Specialty Start Date End Date Bairon Torres MD [address] [place] [address] PCP - General Family Medicine 01/04/22 Fauzia Wagner APRN.PRINT PROJECT MANAGER [address] [place] [address] Special Delivery Worker Family Medicine 02/07/24 Carolyn Asher PA-C [address] [place] [address] [facility] Youth Director Relationship Specialty [place] [address] [place] [address] PCP - General Family Medicine 01/04/22 Fauzia Wagner APRN.PRINT PROJECT MANAGER [address] [place] [address] Special Delivery Worker Family Medicine 02/07/24 Carolyn Asher PA-C [address] [place] [address] [facility] 02/07/24 Youth Director Relationship Specialty Start Date End Date Bairon Torres MD [address] [place] [address] PCP - General Family Medicine 06/07/24 Fauzia Wagner, SENIOR CLINICAL PROJECT MANAGER.PRINT PROJECT MANAGER [address] [place] [address] Special Delivery Worker Family Medicine 02/07/24 Carolyn Asher PA-C [address] [place] [address] Special Delivery Worker Family Medicine 02/07/24 Youth Director Relationship Specialty Start Date End Date Bairon Torres MD [address] [place] [address] PCP - General Family Medicine 06/07/24 Fauzia Wagner APRN.PRINT PROJECT MANAGER [facility] [place] [address] Special Delivery Worker Family Medicine 02/07/24 Carolyn Asher PA-C [facility] [place] [address] Special Delivery Worker Family Medicine 02/07/24 Youth Director Relationship Specialty Start Date End Date Bairon Torres MD [address] [place] [address] PCP - General Family Medicine 06/07/24 Fauzia Wagner APRN.PRINT PROJECT MANAGER [address] [place] [address] Special Delivery Worker Family Medicine 02/07/24 Carolyn Asher PA-C [facility] [place] [address] Special Delivery Worker Family Medicine 02/07/24 Youth Director Relationship Specialty Start Date End Date Bairon Torres MD [address] [place] [address] PCP - General Family Medicine 06/07/24 Fauzia Wagner APRN.PRINT PROJECT MANAGER [facility] [place] [address] Special Delivery Worker Family Medicine 08/02/24 Carolyn Asher PA-C [address] [place] [address] Special Delivery Worker Family Medicine 08/02/24 Youth Director Relationship Specialty Start Date End Date Bairon Torres MD [address] [place] [address] PCP - General Family Medicine 06/07/24 Fauzia Wagner, JORGE.PRINT PROJECT MANAGER [address] [place] [address] Special Delivery Worker Family Medicine 08/02/24 Carolyn Asher PA-C [address] [place] [address] Special Delivery Worker Family Medicine 08/02/24 Youth Director Relationship Specialty Start Date End Date Bairon Torres MD [address] [place] [address] PCP - General Family Medicine 06/07/24 Fauzia Wagner, SENIOR CLINICAL PROJECT MANAGER.PRINT PROJECT MANAGER [address] [place] [address] Special Delivery Worker Family Medicine 08/02/24 Carolyn Asher PA-C [address] [place] [address] Special Delivery Worker Family Medicine 08/02/24 Youth Director Relationship Specialty Start Date End Date Bairon Torres MD [address] [place] [address] PCP - General Family Medicine 06/07/24 Fauzia Wagner, SENIOR CLINICAL PROJECT MANAGER.PRINT PROJECT MANAGER [address] [place] [address] Special Delivery Worker Family Medicine 08/02/24 Carolyn Asher PA-C [address] [place] [address] Special Delivery Worker Family Medicine 08/02/24 Goals (unrecognized section and [...] BE BASED ON THE PRIMARY CLINICAL RECORDS. [employer] provides no warranty or guarantee of the accuracy or completeness of information in this document.
[2024-10-10] MEDS: 0.9% Normal Saline (1000mL) 1,000 ML 100 ML IV (23:28)
[2024-10-11] VITALS (14 sets, daily range): BP systolic 124–155; BP diastolic 54–98; PULSE 65–95; RESP 16–20; TEMP 36.1–37.1; O2SAT 78–100; BMI 16.6
[2024-10-11 04:40] LABS: Hematocrit 30.6 % (37-47); Hemoglobin 10.1 g/dL (12.0-15.0); Immature Granulocytes Count 0.050 X10^3/uL (0.0-0.0); Mean Corp Hgb Conc 33.0 g/dL (32-36); Mean Corpuscular Volume 97.1 fL (81-99); Mean Platelet Vol. 9.1 fl (6.2-12.0); NRBC Flagged by Analyzer 0 % (0-5); POSITIVE DIFFERENTIAL YES; Platelet Count 165 K/mm3 (150-450); RBC Distribution Width CV 12.6 % (11.6-14.6); RBC Distribution Width SD 44.3 fl (35.1-43.9); Red Blood Count 3.15 M/mm3 (4.2-5.4); White Blood Count 10.3 K/mm3 (4.4-11.0)
[2024-10-11 05:11] LABS: AST(SGOT) 22 U/L (<=31); Alanine Aminotransfer ALT/SGPT 11 U/L (<=34); Albumin, Serum 3.6 g/dL (3.4-4.8); Alkaline Phosphatase 77 U/L (35-104); Anion Gap 9 (5-15); BUN 18 mg/dL (4-19); BUN/Creat Ratio 23.8 RATIO (10-20); Calcium,Total 8.5 mg/dL (7.6-11.0); Carbon Dioxide 23.9 mmol/L (21.0-32.0); Chloride 105 mmol/L (98-108); Estimated Creatinine Clearance 32.93 ml/min (50-250); Globulin 1.9 g/dL (2.2-4.2); Glucose 143 mg/dL (70-99); Potassium 3.9 mmol/L (3.3-5.1)
--- NOTE | 2024-10-11 09:14 | PN.HOSP_ITS ---
Subjective Subjective Was restless and agitated overnight, has a history of dementia. Oriented x 1 Objective Data Objective Data Vital Signs: Vital Signs Temp Pulse Resp BP Pulse Ox O2 Del Method 98.7 F 65 18 133/54 H 96 Room Air 10/11/24 06:29 10/11/24 06:29 10/11/24 06:29 10/11/24 06:29 10/11/24 06:29 10/11/24 07:27 Oxygen Delivery Method Room Air Weight: 94 lb Body Mass Index (BMI) 16.6 Intake & Output: Intake and Output for Last 24 Hours 10/10/24 10/11/24 10/12/24 03:59 03:59 03:59 Intake Total 30 0 / 0 Output Total 400 / 400 350 / 350 Balance -370 / -370 -350 / -350 Lab / Micro Data 10/11/24 04:18 10/11/24 04:18 Labs: Laboratory Results - last 24 hr 10/10/24 16:47: WBC 5.2, RBC 3.91 L, Hgb 12.7, Hct 37.6, MCV 96.2, MCH 32.5 H, MCHC 33.8, RDW Std Deviation 44.9 H, RDW Coeff of Katiana 12.8, Plt Count 230, MPV 9.5, Immature Gran % (Auto) 0.400, Neut % (Auto) 61.1, Lymph % (Auto) 24.3, Crowley % (Auto) 10.2 H, Eos % (Auto) 3.4, Baso % (Auto) 0.6, Absolute Neuts (auto) 3.2, Absolute Lymphs (auto) 1.27, Nucleated RBC % 0, Sodium 140, Potassium 4.0, Chloride 102, Carbon Dioxide 24.9, Anion Gap 13, BUN 20 H, Creatinine 0.87, E stim Creat Clear Calc 33.23 L, Est GFR (MDRD) Non-Af 65, BUN/Creatinine Ratio 23.1 H, Glucose 179 H, Calcium 9.3 10/10/24 20:25: PT 14.3, INR 1.1, APTT 25.4 10/10/24 20:50: Urine Color Yellow, Urine Clarity Clear, Urine pH 7.0, Ur Specific [place] 1.015, Urine Protein 15 H, Urine Glucose (UA) Normal, Urine Ketones Negative, Urine Occult Blood 10 H, Urine Nitrite Negative, Urine Bilirubin Negative, Urine Urobilinogen Normal, Ur Leukocyte Esterase Negative, Urine RBC 0-5 SEEN, Urine WBC 0-5 SEEN, Ur Squamous Epith Cells 0 SEEN, Calcium Oxalate Crystal RARE, Urine Bacteria 2+, Hyaline Casts 0-5 SEEN, Fine Granular Casts 0-5 SEEN, Coarse Granular Casts 0-5 SEEN, Urine Mucus 0 SEEN 10/11/24 04:18: WBC 10.3, RBC 3.15 L, Hgb 10.1 L, Hct 30.6 L, MCV 97.1, MCH 32.1 H, MCHC 33.0, RDW Std Deviation 44.3 H, RDW Coeff of Katiana 12.6, Plt Count 165, MPV 9.1, Immature Gran % (Auto) 0.500, Neut % (Auto) 87.5 H, Lymph % (Auto) 3.4 L, Crowley % (Auto) 8.5, Eos % (Auto) 0.0, Baso % (Auto) 0.1, Absolute Neuts (auto) 9.0 H, Absolute Lymphs (auto) 0.35 L, Nucleated RBC % 0, Sodium 138, Potassium 3.9, Chloride 105, Carbon Dioxide 23.9, Anion Gap 9, BUN 18, Creatinine 0.75, E stim Creat Clear Calc 32.93 L, Est GFR (MDRD) Non-Af 77, BUN/Creatinine Ratio 23.8 H, Glucose 143 H, Calcium 8.5, Total Bilirubin 0.60, AST 22, ALT 11, Alkaline Phosphatase 77, Total Protein 5.4 L, Albumin 3.6, Globulin 1.9 L, Albumin/Globulin Ratio 1.9, Blood Type A POSITIVE, Antibody Screen NEGATIVE Radiography Diagnostic Testing: Radiology Impression Femur X-Ray 10/10/24 17:40 IMPRESSION: Acute right femoral fracture. Probable additional fracture of the right distal femur, however visualization is limited by patient positioning. Reading Location: [facility] Pelvis X-Ray 10/10/24 17:40 IMPRESSION: Acute fracture of the right femur through the intertrochanteric line. Reading Location: [facility] Chest X-Ray 10/10/24 20:18 IMPRESSION: No Acute Findings. Reading Location: [facility] Physical Exam Narrative General: Resting, Oriented x1, Cooperative, No apparent distress HEENT: Atraumatic, PERRLA, EOMI, Normocephalic Oral: Moist Mucosa Neck: Supple, No JVD Lungs: Diminished, Normal air movement, No rhonchi, No wheeze, No rales Cardiovascular: Regular rate, Regular Rhythm, Normal S1, Normal S2, No murmurs Abdomen: Soft, Non Tender, Non-Distended, No Hepato-splenomegaly Extremities: No edema, Capillary Refill Less than 3 Seconds Skin: No rashes, No breakdown Musculoskeletal: Tenderness to palpation of right hip Neurological: No focal neurological deficits, moves all extremities other than right lower extremity due to pain Psych/Mental Status: Flat Assessment & Plan Assessment/Plan (1) Closed intertrochanteric fracture of right hip: PLAN: Plan 1. Acute right femoral fracture due to mechanical fall ? Appreciate orthopedic surgery's assistance, plan for operative repair ? Continue with n.p.o. ? IV fluids ? She is from an assisted living, will likely need to be transition to SNF on discharge ? Consult case management social work 2. Anxiety/depression/Alzheimer's dementia ? Stable ? Continue with her home medications 3. Rheumatoid arthritis ? Stable ? Continue with hydroxychloroquine 4. Chronic pancreatic insufficiency ? Stable ? Continue with Creon DVT: SCDs Charges/Coding Visit Charges Inpatient E&M: 08324 Subs Hosp L2
--- NOTE | 2024-10-11 12:14 | CONS.ORTHO ---
HPI Consult Data Date of Consult: 10/11/24 HPI Narrative Reason for Consultation: Right hip fracture HPI Narrative: 89 y/o F w/ PMHx: CKD stage III per previous GFR trending, IBS, Hx VTE, HTN, HLD, GERD s/p Warren, Esophageal dysphagia, Rheumatoid arthritis, Pancreatic exocrine insufficiency, Alzheimer's dementia presented after mechanical fall yesterday onto her right hip. No apparent loss consciousness or head injury. X-rays were obtained in the emergency department revealed a right intertrochanteric femur fracture. Patient was admitted under the service of the hospitalist. My partner Dr. Rodrigo Mcqueen was consulted. He asked if I would assume care to expedite her care given scheduling. At time my examination, patient denied any pain. I did speak to the patient's daughter who is the power of civil litigation attorney, Jacqueline, she stated she was interested in proceeding with surgery. She denied any associated hip or groin pain that she was aware of. [facility] Medical History Rheumatoid arthritis GERD (gastroesophageal reflux disease) History of DVT (deep vein thrombosis) Hyperlipidemia Alzheimer's dementia Chronic kidney disease (CKD), stage III (moderate) Irritable bowel Hiatal hernia Wears glasses Wears dentures History of leukemia Easy bruising Non-smoker Family history of malignant neoplasm of colon in father Esophageal dysphagia Home Medications ?Medication ?Instructions ?Recorded ?Last Taken ?Type hydroxychloroquine 200 mg tablet 200 mg PO DAILYCM arthritis 04/24/19 Unknown History biotin 10,000 mcg capsule 10,000 mcg PO DAILY hair growth 04/24/22 Unknown History lhfnykvidjzn-jaacgutm-jwpvgz tablet 1 tab PO DAILY 04/24/22 Unknown History rivastigmine tartrate 1.5 mg 3 mg PO QHS memory 04/24/22 Unknown History capsule nnafhs-bjnhztht-lamagpg 1 cap PO TID #90 caps 02/12/24 Unknown Rx 40,000-126,000-168,000 unit capsule, delay rel (Zenpep) megestrol 40 mg tablet 40 mg PO TID #90 tabs 05/24/24 Unknown Rx rivastigmine tartrate 1.5 mg 1.5 mg PO DAILY 10/10/24 Unknown History capsule Allergy/AdvReac Type Severity Reaction Status Date / Time aspirin Allergy Severe Hives Verified 10/10/24 17:10 ibuprofen Allergy Hives Verified 10/10/24 17:10 donepezil AdvReac Nausea Verified 10/10/24 17:10 Penicillins AdvReac I PASS Verified 10/10/24 17:10 OUT Family History Mother Alzheimer's dementia Diabetes Father CVA (cerebral vascular accident) Colon cancer Surgical History Hx of colonoscopy Hx of appendectomy Hx of toe surgery Hx of arthroscopy of shoulder Hx of dilation and curettage Hx of bilateral cataract extraction Hx of arthroscopy of right knee Hx of tonsillectomy Hx of abdominal hysterectomy Status post laparoscopic Warren fundoplication Social History household members: family housing: assisted living facility Smoking Status: Never smoker alcohol intake: never substance use type: does not use ROS Review of Systems ROS Unobtainable: due to encephalopathy Vital Signs Vital Signs Vital Signs: 10/10/24 16:59 10/10/24 17:05 10/10/24 18:59 Temperature 98.1 F Temperature Source Oral Pulse Rate 77 85 Respiratory Rate 16 24 H Respiratory Effort Normal Respiratory Depth Normal Respiratory Pattern Normal Blood Pressure 160/83 H 149/66 H Blood Pressure Mean 108 93 Blood Pressure Source Blood Pressure Position Blood Pressure Location Pulse Ox 99 100 99 Oxygen Delivery Method Room Air Room Air Room Air 10/10/24 20:00 10/10/24 21:30 10/10/24 22:29 Temperature 97.6 F L Temperature Source Pulse Rate 82 74 Respiratory Rate 20 H 24 H Respiratory Effort Respiratory Depth Respiratory Pattern Blood Pressure 140/84 H 140/88 H Blood Pressure Mean 102 105 Blood Pressure Source Blood Pressure Position Blood Pressure Location Pulse Ox 96 97 95 Oxygen Delivery Method Room Air Room Air 10/10/24 23:16 10/10/24 23:52 10/11/24 06:29 Temperature 97.6 F L 98.7 F Temperature Source Oral Temporal Pulse Rate 80 65 Respiratory Rate 18 18 Respiratory Effort Normal Non-Labored Respiratory Depth Normal Respiratory Pattern Normal Blood Pressure 148/92 H 133/54 H Blood Pressure Mean 110 80 Blood Pressure Source Monitor Monitor Blood Pressure Position Semi-Fowlers Supine Blood Pressure Location Right Arm Right Arm Pulse Ox 97 96 Oxygen Delivery Method Room Air Room Air Room Air 10/11/24 07:27 10/11/24 09:58 10/11/24 12:12 Temperature 98.5 F Temperature Source Oral Pulse Rate 74 Respiratory Rate 18 Respiratory Effort Normal Non-Labored Respiratory Depth Normal Respiratory Pattern Normal Blood Pressure 130/81 H Blood Pressure Mean 97 Blood Pressure Source Monitor Blood Pressure Position Semi-Fowlers Blood Pressure Location Left Arm Pulse Ox 95 Oxygen Delivery Method Room Air Room Air Room Air Weight Weight: 94 lb Body Mass Index (BMI) 16.6 Physical Exam Narrative General -A&Ox person only, NAD, appears stated age. Vital signs stable, afebrile. Respiratory -normal work of breathing, no intercostal retractions. CV -pulses regular, brisk capillary refill ?4 limbs. Abdomen-soft, nontender, nondistended. No guarding, rigidity, rebound tenderness. Musculoskeletal/neurologic -full range of motion nontender throughout bilateral upper extremities, left lower extremity with full sensation and strength in all dermatomes and myotomes. No midline cervical tenderness. Right lower extremity-no obvious deformity. Pain with logroll of the right lower extremity. Nontender throughout the right knee femoral shaft, tibial shaft and right foot/ankle. Brisk capillary refill. Sensation intact light touch L3-S1 dermatomes. DF, PF, EHL intact. DP, PT 2+. Pelvis is stable, nontender. Skin is intact without lacerations, abrasions. No ecchymosis noted. Lab / Micro Data 10/11/24 04:18 10/11/24 04:18 Labs: Laboratory Results - last 24 hr 10/10/24 16:47: WBC 5.2, RBC 3.91 L, Hgb 12.7, Hct 37.6, MCV 96.2, MCH 32.5 H, MCHC 33.8, RDW Std Deviation 44.9 H, RDW Coeff of Katiana 12.8, Plt Count 230, MPV 9.5, Immature Gran % (Auto) 0.400, Neut % (Auto) 61.1, Lymph % (Auto) 24.3, [place] % (Auto) 10.2 H, Eos % (Auto) 3.4, Baso % (Auto) 0.6, Absolute Neuts (auto) 3.2, Absolute Lymphs (auto) 1.27, Nucleated RBC % 0, Sodium 140, Potassium 4.0, Chloride 102, Carbon Dioxide 24.9, Anion Gap 13, BUN 20 H, Creatinine 0.87, Estim Creat Clear Calc 33.23 L, Est GFR (MDRD) Non-Af 65, BUN/Creatinine Ratio 23.1 H, Glucose 179 H, Calcium 9.3 10/10/24 20:25: PT 14.3, INR 1.1, APTT 25.4 10/10/24 20:50: Urine Color Yellow, Urine Clarity Clear, Urine pH 7.0, Ur Specific [place] 1.015, Urine Protein 15 H, Urine Glucose (UA) Normal, Urine Ketones Negative, Urine Occult Blood 10 H, Urine Nitrite Negative, Urine Bilirubin Negative, Urine Urobilinogen Normal, Ur Leukocyte Esterase Negative, Urine RBC 0-5 SEEN, Urine WBC 0-5 SEEN, Ur Squamous Epith Cells 0 SEEN, Calcium Oxalate Crystal RARE, Urine Bacteria 2+, Hyaline Casts 0-5 SEEN, Fine Granular Casts 0-5 SEEN, Coarse Granular Casts 0-5 SEEN, Urine Mucus 0 SEEN 10/11/24 04:18: WBC 10.3, RBC 3.15 L, Hgb 10.1 L, Hct 30.6 L, MCV 97.1, MCH 32.1 H, MCHC 33.0, RDW Std Deviation 44.3 H, RDW Coeff of Katiana 12.6, Plt Count 165, MPV 9.1, Immature Gran % (Auto) 0.500, Neut % (Auto) 87.5 H, Lymph % (Auto) 3.4 L, [place] % (Auto) 8.5, Eos % (Auto) 0.0, Baso % (Auto) 0.1, Absolute Neuts (auto) 9.0 H, Absolute Lymphs (auto) 0.35 L, Nucleated RBC % 0, Sodium 138, Potassium 3.9, Chloride 105, Carbon Dioxide 23.9, Anion Gap 9, BUN 18, Creatinine 0.75, Estim Creat Clear Calc 32.93 L, Est GFR (MDRD) Non-Af 77, BUN/Creatinine Ratio 23.8 H, Glucose 143 H, Calcium 8.5, Total Bilirubin 0.60, AST 22, ALT 11, Alkaline Phosphatase 77, Total Protein 5.4 L, Albumin 3.6, Globulin 1.9 L, Albumin/Globulin Ratio 1.9, Blood Type A POSITIVE, Antibody Screen NEGATIVE Imaging Radiology Impression Femur X-Ray 10/10/24 17:40 IMPRESSION: Acute right femoral fracture. Probable additional fracture of the right distal femur, however visualization is limited by patient positioning. Reading Location: [facility] Pelvis X-Ray 10/10/24 17:40 IMPRESSION: Acute fracture of the right femur through the intertrochanteric line. Reading Location: [facility] Chest X-Ray 10/10/24 20:18 IMPRESSION: No Acute Findings. Reading Location: [facility] Assessment & Plan Assessment/Plan (1) Closed intertrochanteric fracture of right hip: QUALIFIERS: Encounter type: initial encounter Fracture alignment: displaced Qualified Code(s): S72.141A - Displaced intertrochanteric fracture of right femur, initial encounter for closed fracture PLAN: Patient sustained a right intertrochanteric proximal femur fracture. -Closed, neurovascularly intact -Isolated injury -Recommending surgical intervention in the form of right femur cephalomedullary nailing -I discussed the procedure-its risks, benefits and alternative. Risks include but are not limited to bleeding, infection, loss of life or limb, risk of anesthesia, persistent pain or disability, need for additional surgery, nonunion, malunion, failure of orthopedic hardware, neurovascular injury, DVT or PE. POA expressed understanding these risks and wished proceed with surgery. -Maintenance IV fluids, clear liquid diet after midnight n.p.o. at 2 hours prior to surgery -Type and screen -2 g Ancef on-call to the OR -Bedrest, heel protectors -Plan to proceed with surgery later today when OR becomes available Thank you for this consultation.
[2024-10-11] MEDS: Lactated Ringers 1,000 ML 15 ML IV (13:14)
--- NOTE | 2024-10-11 13:32 | NURSING ---
Thr nurse at the [facility] called and was given and update on the pt.
--- NOTE | 2024-10-11 13:33 | PCM.PRE.AN2 ---
ASA Classification* ASA Classification ASA Classification: 3 Assessment & Plan Anesthesia* Anesthesia Assessment Anesthesia Assessment: Discussed sedation and/or anesthesia options, risks, benefits, and alternatives with patient/parents/legal guardian/POA. Questions invited. The patient/parents/legal guardian/POA seems to understand and agrees to proceed with anesthesia plan. Reviewed the physical assessment, medical history, allergy history and patient home medications list prior to surgery/procedure/anesthetic and documented any changes. Performed airway and anesthesia risk assessments. Anesthesia Type Anesthesia Type: General History Source History Obtained from:: Patient and Chart Anesthesia Focused Assessment* Temperature: 98.5 F Pulse Rate: 74 Blood Pressure: 130/81 Respiratory Rate: 18 Pulse Ox: 95 Oxygen Delivery Method: Room Air Airway Assessment Mouth opens: >3 cm Mallampati Score: III Teeth Condition: Dentures (Patient has upper dentures. They will come out.) and Missing (Patient has a few missing teeth on the bottom. The rest are tight.) Neck Range of motion (ROM): Limited ROM (Somewhat Decreased) Labs Anesthesia Preop lab: CBC WBC 10.3 K/mm3 (4.4-11.0) 10/11/24 04:18 10/11/24 RBC 3.15 M/mm3 (4.2-5.4) L 10/11/24 04:18 10/11/24 Hgb 10.1 g/dL (12.0-15.0) L 10/11/24 04:18 10/11/24 Hct 30.6 % (37-47) L 10/11/24 04:18 10/11/24 Plt Count 165 K/mm3 (150-450) 10/11/24 04:18 10/11/24 CHEMISTRY Potassium 3.9 mmol/L (3.3-5.1) 10/11/24 04:18 10/11/24 Sodium 138 mmol/L (133-145) 10/11/24 04:18 10/11/24 Magnesium 2.4 mg/dL (1.6-2.6) 04/24/22 13:45 04/24/22 BUN 18 mg/dL (4-19) 10/11/24 04:18 10/11/24 Creatinine 0.75 mg/dL (0.70-1.20) 10/11/24 04:18 10/11/24 Glucose 143 mg/dL (70-99) H 10/11/24 04:18 10/11/24 POC Glucose 111 mg/dL (70-110) H 03/25/14 14:49 03/25/14 COAG PT 14.3 SECONDS (11.7-14.9) 10/10/24 20:25 10/10/24 Pre-Assessment Diagnosis/Proposed Procedure Planned Operative Procedure(s): Right hip open reduction internal fixation. 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 When Was Last Pacemaker Check QUESTION #4 FULL TEXT: You/Your Family Experience fever (hyperthermia) with Anesthesia Last Oral Intake Last Oral intake: Last Oral Intake NPO since Meds taken in AM with sips of water? 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 Female HX of Motion Sickness HX of N/V After Surgery Non-Smoker Duration of Surgery greater than 60 minutes Number of Risk Factors PONV Score Height & Weight Height & Weight: Anesthesia: Height & Weight Height 5 ft 3 in 10/10/24 22:23 Weight: 42.638 kg 10/11/24 06:00 Body Mass Index (BMI) 16.6 10/11/24 06:00 Respiratory Assessment Respiratory Assessment - plate painter apprentice: Respiratory Tract Infection Hx - plate painter apprentice Hx Respiratory Tract Infection No 10/10/24 22:54 STOP Sleep Apnea STOP Sleep Apnea - plate painter apprentice: STOP Sleep Apnea - plate painter apprentice Hx Hypertension No 10/10/24 22:23 Hx Sleep Apnea No 10/10/24 22:23 CPAP No 04/25/22 12:10 BIPAP No 04/24/22 16:45 Do you snore loudly (louder No 10/10/24 22:23 than talking or can be heard Do you often feel tired/ No 10/10/24 22:23 fatigued/ sleepy during daytime? Has anyone observed you stop No 10/10/24 22:23 breathing during sleep? STOP Results Negative 10/10/24 22:23 QUESTION #5 FULL TEXT : Do you snore loudly (louder than talking or can be heard through closed doors)? 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 Specify any problems Hx of Preganancy in last 3 N/A 10/10/24 22:23 Months Nurse Filling Out Transfusion LSMITH 10/10/24 22:23 & Questions: Date: 10/10/24 10/10/24 22:23 Time: 22:28 10/10/24 22:23 Patient unable to answer at this time (ie. confused, unrespo /Reproduction History /Reproductive History - plate painter apprentice: /Reproductive Hx- plate painter apprentice Hx Now Gestational Age (in weeks): EDC: Hx Hx Para Hx Section SAB No 04/25/22 05:20 Active Medications Active Medications: Current Medications Generic Name Dose Route Start Last Admin Trade Name Freq PRN Reason Stop Dose Admin Acetaminophen 650 mg 10/10/24 21:52 Acetaminophen 325 Mg Tablet PO Q4H PRN PRN Fever, pain 1-12/10 Al Hydroxide/Mg Hydroxide 30 ml 10/10/24 21:52 Mag Hydrox/Al Hydrox/Simeth 30 Ml Udc PO Q6H PRN PRN Gastric Burning Albuterol Sulfate 2.5 mg 10/10/24 21:52 Albuterol 2.5 Mg/3 Ml Vial.Neb. INHALATION Q2H PRN PRN Dyspnea, wheezing Calamine/Phenol 1 applic 10/10/24 22:00 10/11/24 13:06 Menthol/Lanolin/Calamine/Znox 113 Gm Tube TOPICAL Not Given 4X/DAY [facility] Protocol Fentanyl Citrate 25 mcg 10/11/24 00:23 Fentanyl 100 Mcg/2 Ml Ampul IV Q3H PRN PRN pain 4-10 Guaifenesin 20 ml 10/10/24 21:52 Guaifenesin 10 Ml Udc (200mg/10ml) PO Q4H PRN PRN COUGH Hydralazine HCl 10 mg 10/10/24 21:52 Hydralazine 20 Mg/Ml Vial IV Q4H PRN PRN SBP > 160 Protocol Hydroxychloroquine Sulfate 200 mg 10/11/24 08:00 10/11/24 08:13 Hydroxychloroquine 200 Mg Tablet PO Not Given DAILYCM SKYLER Lactated Ringer's 1,000 mls @ 15 mls/hr 10/11/24 13:15 10/11/24 13:14 IV 15 mls/hr .Q48H SKYLER Administration Megestrol Acetate 40 mg 10/10/24 22:00 10/11/24 13:06 Megestrol 40 Mg Tablet PO Not Given TID SKYLER Melatonin 3 mg 10/10/24 21:52 Melatonin 3 Mg Tablet PO QHS PRN PRN INSOMNIA Mirtazapine 15 mg 10/10/24 22:00 10/10/24 23:42 Mirtazapine 15 Mg Tablet PO 15 mg QHS SKYLER Administration Ondansetron HCl 4 mg 10/10/24 21:52 Ondansetron 4 Mg/2 Ml Vial IV Q8H PRN PRN NAUSEA/VOMITING Oxycodone HCl 2.5 - 5 mg 10/10/24 21:52 Oxycodone 5 Mg Tablet PO Q4H PRN PRN Pain Score 4-10 Pancrelipase 1 cap 10/11/24 08:00 10/11/24 10:52 Creon 24,[address] Capsule PO Not Given TIDCM [facility] Pancrelipase 1 cap 10/11/24 08:00 10/11/24 10:51 Creon 12,[address] Capsule PO Not Given TIDCM [facility] Quetiapine Fumarate 25 mg 10/10/24 22:00 10/10/24 23:42 Quetiapine 25 Mg Tablet PO 25 mg QHS [facility] Administration Protocol Rivastigmine Tartrate 1.5 mg 10/10/24 22:00 10/10/24 23:20 Rivastigmine Tartrate 1.5 Mg Capsule PO Not Given QHS [facility] Rivastigmine Tartrate 1.5 mg 10/11/24 10:00 10/11/24 08:13 Rivastigmine Tartrate 1.5 Mg Capsule PO Not Given DAILY [facility] Senna/Docusate Sodium 2 tablet 10/10/24 22:00 10/11/24 08:13 Senna/Docusate Sodium 1 Tablet PO Not Given BID [facility] Sodium Chloride 10 - 40 ml 10/10/24 22:50 0.9% Saline Lock 10 Ml Syringe IV UD PRN SALINE FLUSH [facility] Medical History Rheumatoid arthritis GERD (gastroesophageal reflux disease) History of DVT (deep vein thrombosis) Hyperlipidemia Alzheimer's dementia Chronic kidney disease (CKD), stage III (moderate) Irritable bowel Hiatal hernia Wears glasses Wears dentures History of leukemia Easy bruising Non-smoker Family history of malignant neoplasm of colon in father Esophageal dysphagia Home Medications ?Medication ?Instructions ?Recorded ?Last Taken ?Type hydroxychloroquine 200 mg tablet 200 mg PO DAILYCM arthritis 04/24/19 Unknown History biotin 10,000 mcg capsule 10,000 mcg PO DAILY hair growth 04/24/22 Unknown History wiaewotwdhix-mxyrqgru-ipwksj tablet 1 tab PO DAILY 04/24/22 Unknown History rivastigmine tartrate 1.5 mg 3 mg PO QHS memory 04/24/22 Unknown History capsule ipamrh-cegqeolc-fxeeuzh 1 cap PO TID #90 caps 02/12/24 Unknown Rx 40,000-126,000-168,000 unit capsule, delay rel (Zenpep) megestrol 40 mg tablet 40 mg PO TID #90 tabs 05/24/24 Unknown Rx rivastigmine tartrate 1.5 mg 1.5 mg PO DAILY 10/10/24 Unknown History capsule Allergy/AdvReac Type Severity Reaction Status Date / Time aspirin Allergy Severe Hives Verified 10/10/24 17:10 ibuprofen Allergy Hives Verified 10/10/24 17:10 donepezil AdvReac Nausea Verified 10/10/24 17:10 Penicillins AdvReac I PASS Verified 10/10/24 17:10 OUT Family History Mother Alzheimer's dementia Diabetes Father CVA (cerebral vascular accident) Colon cancer Surgical History Hx of colonoscopy Hx of appendectomy Hx of toe surgery Hx of arthroscopy of shoulder Hx of dilation and curettage Hx of bilateral cataract extraction Hx of arthroscopy of right knee Hx of tonsillectomy Hx of abdominal hysterectomy Status post laparoscopic Warren fundoplication Social History household members: family housing: assisted living facility Smoking Status: Never smoker alcohol intake: never substance use type: does not use Review of Systems (Anesthesia) ROS Narrative System reviewed and no additional complaints, except as documented.
[2024-10-11] MEDS: Lidocaine 2% (5ml sdv) 5 ML VIAL.MPF IV (14:14)
[2024-10-11] MEDS: fentaNYL 100 MCG/2 ML Ampul 50 MCG IV (14:22)
[2024-10-11] MEDS: Cefazolin 1 GM/5 ML Vial 2 GM IV (14:24)
[2024-10-11] MEDS: TRANEXAMIC ACID 1,000 MG/10 ML ML 1000 MG IV (14:29)
--- NOTE | 2024-10-11 14:30 | RAD_ITS ---
PROCEDURE: Intraoperative fluoroscopic imaging provided for open reduction internal fixation of the right intertrochanteric fracture. 10/11/2024 REASON FOR EXAM: ORIF GAMMA NAIL RT HIP TECHNIQUE: Radiation dose: 16.9 seconds of fluoroscopy. 3.4 mGy. 5 images were obtained. Laterality: Right COMPARISON: Prior study dated October 10, 2024. FINDINGS: Intraoperative imaging provided for OR IF gamma nailing of the right intertrochanteric fracture. RAD/Hip Min 2 Views (Portable) IMPRESSION: Intraoperative fluoroscopic services provided for ORIF gamma nail reduction of the right intertrochanteric fracture. Reading Location: [facility]
[2024-10-11] MEDS: Bupiv/Epi 0.25% 30 ML Vial 10 ML INFILT (14:45)
--- NOTE | 2024-10-11 14:53 | OP.PCM_ITS ---
Operative Report (Standard) Operative Information Date of Procedure: 10/11/24 Pre-Operative Diagnosis: Right intertrochanteric proximal femur fracture Post-Operative Diagnosis: Right intertrochanteric proximal femur fracture Surgery/Procedure Performed: Right femur cephalomedullary nailing unit controller: Yes School Bus Operator: Deidre Dong Tasks completed by engineer first assistant: Opening & closing, Implanting device and Retracting Type of Anesthesia: General RN Documented Start/Stop Times: Operation Date: 10/11/24 14:00 Case Time Into Pre-Op 10/11/24 13:07 Anesthesia Start 10/11/24 14:06 Into Room 10/11/24 14:06 Procedure Start 10/11/24 14:31 Procedure End 10/11/24 14:53 Procedure Start Time: 14:31 Procedure Stop Time: 14:53 Select all DRAINS/GRAFTS/IMPLANTS that apply: Implanted device Implanted device details: Shabana gamma 4 10 x 180 mm 125 degree cephalomedullary nail with 85 mm lag screw and 35 mm interlocking screw Estimated Blood Loss: 100 cc Specimen collected: No Description of surgery: Patient was seen in preoperative holding area. She was identified by name, medical record number, date of . The operative extremity was marked with a surgical marker. We confirmed informed consent with the POA prior to surgery and questions were answered to her satisfaction. Patient was brought to the operative suite, and general anesthesia was induced on her hospital bed. Endotracheal tube was secured. After adequate anesthesia, patient was transferred to a fracture table with all bony prominences being well-padded. A perineal post was placed to secure the patient on the table. We then applied a ski boot which was well-padded to the operative extremity. The well leg was dropped into extension and secured to the axial post of the fracture table with a pillow and Coban. The right arm was brought across patient's chest with a blanket on her chest. We then performed a closed reduction maneuver with external rotation, traction, internal rotation and adduction. Fluoroscopic images were obtained. Fracture appeared to be acceptably reduced following closed reduction. We then prepped and draped the right lower extremity in normal, sterile orthopedic fashion. A timeout was performed with all parties in attendance in agreement with the side, site, and operation be performed. 2 g Ancef and 1 g IV TXA was administered prior to incision. No concerns were voiced and we elected to proceed. I first used fluoroscopy to talya the level of the fracture and planned incision for insertion of the cephalomedullary nail device. In line with the long axis of the femur, 4 fingerbreadths proximal to the tip of the greater trochanter, a full-thickness skin incision was planned.. Skin was sharply incised with 10 blade scalpel, carried into the subcutaneous tissues. The IT band was encountered and split and planned trajectory of the nail placement. The greater trochanter was then able to be palpated digitally. I then placed a threaded guidewire just medial to the tip of the greater trochanter and in the anterior third of it on the lateral. Opening reamer was then placed over top of the guid ewire after placement was confirmed on C arm. A ball-tipped guidewire then was passed into the intramedullary canal after reamer was removed. We used C arm to confirm our placement within the bone Reduction was again confirmed. We selected her nail to be 18 cm x 10 mm diameter. 7 Nail was assembled on the back table. We placed it over the ball-tipped guidewire and impacted to an appropriate depth. Rotation was confirmed on the lateral. Drill sleeve was placed through the targeting guide. We drilled the pin for the lag screw at an appropriate position and depth, tip to apex distance less than 25 mm on AP and lateral combined. Depth gauge was used to measure the length of the screw, 85 mm. Prior to drilling, I applied a lateral translation of the femoral neck with a bone hook placed to the lag screw incision. We then used the cannulated drill to drill to an appropriate depth. Drill was removed, drill pin left in place. Lag screw was placed over top of the drill pin and tightened to an appropriate depth. Setscrew was then placed and tightened, and then turned back a quarter turn to allow the lag screw to slide. I then drilled for a static interlocking screw in the distal portion of the screw utilizing the outrigger. Skin was incised full-thickness down the level of the IT band which was also split in line with the skin incision. I drilled bicortically through the distal interlocking slot of the nail. I measured for a 35 mm interlocking screw which was placed by hand with excellent purchase. Instruments were removed as well as the outrigger for the nail. Final fluoroscopic images were obtained at the hip. Final fluoroscopic images were obtained. We irrigated the wounds copiously with normal saline solution. Hemostasis was excellent at this point. We then closed the deeper layers, IT band with 0 Vicryl. Intradermal buried stitches of 2-0 Vicryl were utilized and skin finally reapproximated with skin miah. Sterile compression dressing of Xeroform, 4 x 4's, and Tegaderm was applied. Patient tolerated procedure well without complication. She was transferred back to her hospital bed and subsequently to PACU in stable condition. Need for skilled customer relations assistant: Deidre Dong PA-C was critical to the outcome of the case. During the course of the procedure the physician customer relations assistant played a vital role. Her intimate knowledge of my steps in the procedure aided in safe and expedient completion of the procedure. The PA played a vital role in positioning particularly in obtaining the appropriate positioning. The PA was also vital in the retraction of soft tissues during the exposure and protecting vital structures. The PA was also vital and obtaining fracture reduction and assisting with hardware placement. She also played a vital role in closure and dressing application with my direct supervision. Intraoperative medications: 2 g Ancef IV Post Operative Plan: Weightbearing: Weightbearing as tolerated right lower extremity with a walker Antibiotics: Ancef 1 g x 3 doses postoperatively, 1 dose given preoperatively DVT Prophylaxis: Lovenox to start tomorrow morning Obrien: None Dressing: Dry sterile dressing changes daily and as needed for saturation X-Rays: 2 weeks postop in the office Follow-up: 2 weeks post-operatively in the office Surgical Findings: Right intertrochanteric proximal femur fracture. Stable following fixation. Complications Complications: No Admit VTE Documentation VTE Present on Admission: No VTE Mechan Device Prophylaxis: SCD's and Thigh High ESTEPHANIA Hose VTE Pharm Prophylaxis ordered?: Yes
--- NOTE | 2024-10-11 15:10 | PCM.POST.ANE ---
Anesthesia: Postop Eval I Current Vital Signs Temperature: 97.0 F Pulse Rate: 71 Blood Pressure: 141/98 Respiratory Rate: 20 Pulse Ox: 99 Oxygen Delivery Method: Venturi Mask Oxygen Flow Rate (L/min): 8 Assessment Airway patent: Yes Spontaneous unlabored respirations: Yes Mental status: Asleep nausea: No Vomiting: No Anesthesia Complication: No Fluid Hydration Crystalloid volume administer (ml): 500 Total IV fluid infused: 500 Progress Note Anesthesia document: Postop Eval 1 completed: Yes
--- NOTE | 2024-10-11 16:39 | POSTOPAN2_ITS ---
Anesthesia Postop Eval I Sum Postop Eval Completion status Anesthesia document: Postop Eval 1 completed: Yes Anesthesia Postop Eval I Summary Anesthesia Postop Eval I Summary: Anesthesia Postop Eval I: Assessment Summary Airway patent Yes 10/11/24 15:11 PRODUCT [email or web address] Spontaneous unlabored Yes 10/11/24 15:11 PRODUCT [email or web address] respirations Mental status Asleep 10/11/24 15:11 PRODUCT [email or web address] nausea No 10/11/24 15:11 PRODUCT [email or web address] Vomiting No 10/11/24 15:11 PRODUCT [email or web address] Anesthesia Postop Eval I: Fluid Summary Crystalloid volume administer 500 10/11/24 15:11 PRODUCT [email or web address] (ml) Colloids volume administered ( ml) Blood Product volume administered (ml) Total IV fluid infused 500 10/11/24 15:11 PRODUCT [email or web address] Anesthesia Postop Eval I: Summary Notes Anesthesia Complication No 10/11/24 15:11 PRODUCT [email or web address] Anesthesia Complication Comment: Post-operative progress note Anesthesia: Postop Eval II Evaluation Mental status: Awake Pain Level: 2 nausea: No Vomiting: No
--- NOTE | 2024-10-11 16:39 | PCM.POSTANE2 ---
Anesthesia Postop Eval I Sum Postop Eval Completion status Anesthesia document: Postop Eval 1 completed: Yes Anesthesia Postop Eval I Summary Anesthesia Postop Eval I Summary: Anesthesia Postop Eval I: Assessment Summary Airway patent Yes 10/11/24 15:11 [email or web address] Spontaneous unlabored Yes 10/11/24 15:11 [email or web address] respirations Mental status Asleep 10/11/24 15:11 [email or web address] nausea No 10/11/24 15:11 [email or web address] [email or web address] Vomiting No 10/11/24 15:11 [email or web address] Anesthesia Postop Eval I: Fluid Summary Crystalloid volume administer 500 10/11/24 15:11 [email or web address] (ml) Colloids volume administered ( ml) Blood Product volume administered (ml) Total IV fluid infused 500 10/11/24 15:11 [email or web address] Anesthesia Postop Eval I: Summary Notes Anesthesia Complication No 10/11/24 15:11 [email or web address] [email or web address] Anesthesia Complication Comment: Post-operative progress note Anesthesia: Postop Eval II Evaluation Mental status: Awake Pain Level: 2 nausea: No Vomiting: No
--- NOTE | 2024-10-11 16:41 | CASEMGMT ---
TC to pt dtr Jacqueline DURBIN who states pt resides at [facility] [place]. She states she is aware that pt will need skilled care post hospitalization. She states she may want a facility that has memory care as well as skilled care. She was provided a list of SNF providers including quality and resource use data and consistent with the patient?s preferred geographic region, medical needs, and insurance network were provided from the [employer] Guide. Also notated which facilities have memory care as well. HERB CM to follow.
[2024-10-11] MEDS: Senna/Docusate Sodium 1 Tablet 2 TABLET PO (20:38)
[2024-10-11] MEDS: Cefazolin 1 GM/50 ML BAG IV (20:40)
[2024-10-11] MEDS: MELATONIN 3 MG TABLET PO (23:12)
[2024-10-12] VITALS (9 sets, daily range): BP systolic 101–145; BP diastolic 67–84; PULSE 83–105; RESP 18–20; TEMP 36.4–37.4; O2SAT 91–100; BMI 17.1
[2024-10-12] MEDS: Cefazolin 1 GM/50 ML BAG IV ×2 (05:00→13:19)
[2024-10-12] MEDS: 0.9% Saline Lock 10 ML Syringe IV ×2 (05:00→19:46)
[2024-10-12 05:57] LABS: Hematocrit 29.6 % (37-47); Hemoglobin 9.8 g/dL (12.0-15.0); Immature Granulocytes Count 0.080 X10^3/uL (0.0-0.0); Mean Corp Hgb Conc 33.1 g/dL (32-36); Mean Corpuscular Volume 96.1 fL (81-99); Mean Platelet Vol. 9.3 fl (6.2-12.0); NRBC Flagged by Analyzer 0 % (0-5); POSITIVE DIFFERENTIAL YES; Platelet Count 203 K/mm3 (150-450); RBC Distribution Width CV 12.7 % (11.6-14.6); RBC Distribution Width SD 43.8 fl (35.1-43.9); Red Blood Count 3.08 M/mm3 (4.2-5.4); White Blood Count 16.8 K/mm3 (4.4-11.0)
[2024-10-12 06:22] LABS: Anion Gap 11 (5-15); BUN 19 mg/dL (4-19); BUN/Creat Ratio 19.5 RATIO (10-20); Calcium,Total 8.7 mg/dL (7.6-11.0); Carbon Dioxide 21.5 mmol/L (21.0-32.0); Chloride 105 mmol/L (98-108); Estimated Creatinine Clearance 28.25 ml/min (50-250); Glucose 164 mg/dL (70-99); Potassium 4.0 mmol/L (3.3-5.1)
--- NOTE | 2024-10-12 08:46 | PN.HOSP_ITS ---
Subjective Subjective Confused and altered. She was coughing last night with food so she is n.p.o. awaiting speech eval Objective Data Objective Data Vital Signs: Vital Signs Temp Pulse Resp BP Pulse Ox O2 Del Method O2 Flow Rate 97.6 F L 94 18 143/70 H 94 Nasal Cannula 3 10/12/24 08:00 10/12/24 08:00 10/12/24 08:00 10/12/24 08:00 10/12/24 08:00 10/12/24 08:00 10/12/24 08:00 Oxygen Flow Rate (L/min) 3 Oxygen Delivery Method Nasal Cannula Weight: 96 lb 8.999 oz Body Mass Index (BMI) 17.1 Intake & Output: Intake and Output for Last 24 Hours 10/11/24 10/12/24 10/13/24 03:59 03:59 03:59 Intake Total 30 / 30 1150 / 1150 50 / 50 Output Total 400 / 400 950 / 950 300 / 300 Balance -370 / -370 200 / 200 -250 / -250 Lab / Micro Data 10/12/24 05:28 10/12/24 05:28 Labs: Laboratory Results - last 24 hr 10/12/24 05:28: WBC 16.8 H, RBC 3.08 L, Hgb 9.8 L, Hct 29.6 L, MCV 96.1, MCH 31.8, MCHC 33.1, RDW Std Deviation 43.8, RDW Coeff of Katiana 12.7, Plt Count 203, MPV 9.3, Immature Gran % (Auto) 0.500, Neut % (Auto) 89.0 H, Lymph % (Auto) 2.4 L, [place] % (Auto) 8.0, Eos % (Auto) 0.0, Baso % (Auto) 0.1, Absolute Neuts (auto) 15.0 H, Absolute Lymphs (auto) 0.41 L, Nucleated RBC % 0, Sodium 137, Potassium 4.0, Chloride 105, Carbon Dioxide 21.5, Anion Gap 11, BUN 19, Creatinine 0.97, E stim Creat Clear Calc 28.25 L, Est GFR (MDRD) Non-Af 56 L, BUN/Creatinine Ratio 19.5, Glucose 164 H, Calcium 8.7 Radiography Diagnostic Testing: Radiology Impression Hip X-Ray 10/11/24 14:30 IMPRESSION: Intraoperative fluoroscopic services provided for ORIF gamma nail reduction of the right intertrochanteric fracture. Reading Location: [facility] Physical Exam Narrative General: Alert, Oriented x1, Cooperative, No apparent distress HEENT: Atraumatic, PERRLA, EOMI, Normocephalic Oral: Moist Mucosa Neck: Supple, No JVD Lungs: Diminished, Normal air movement, No rhonchi, No wheeze, No rales Cardiovascular: Regular rate, Regular Rhythm, Normal S1, Normal S2, No murmurs Abdomen: Soft, Non Tender, Non-Distended, No Hepato-splenomegaly Extremities: No edema, Capillary Refill Less than 3 Seconds Skin: No rashes, No breakdown Musculoskeletal: Tenderness to palpation of right hip, dressing CDI Neurological: No focal neurological deficits, moves all extremities other than right lower extremity due to pain Psych/Mental Status: Flat Assessment & Plan Assessment/Plan (1) Closed intertrochanteric fracture of right hip: QUALIFIERS: Encounter type: initial encounter Fracture alignment: displaced Qualified Code(s): S72.141A - Displaced intertrochanteric fracture of right femur, initial encounter for closed fracture PLAN: Plan 1. Acute right femoral fracture due to mechanical fall status post repair 10/11/2024 ? Appreciate orthopedic surgery's assistance, plan for operative repair ? Continue with n.p.o. pending speech evaluation ? IV fluids ? She is from an assisted living, will likely need to be transition to SNF on discharge ? Consult case management social work 2. Anxiety/depression/Alzheimer's dementia ? Stable ? Continue with her home medications 3. Rheumatoid arthritis ? Stable ? Continue with hydroxychloroquine 4. Chronic pancreatic insufficiency ? Stable ? Continue with Creon DVT: Lovenox Charges/Coding Visit Charges Inpatient E&M: 27745 Subs Hosp L2
--- NOTE | 2024-10-12 10:07 | NURSING ---
attempt to call daughter Luma @ [phone] not successful-left message for her to call whenavailable
--- NOTE | 2024-10-12 10:49 | CASEMGMT ---
Received tc from pt dtr Jacqueline who states after reviewing the list she and her sister are aware that pt will likely not ever be able to return to [place]. She states that her sister is planning on visiting [facility] for skilled care and then ultimately transition to memory care. Pt dtr aware that therapy has not yet worked with pt yet and a ST eval is pending. She states that she hopes to have an answer on a facility today. HERB DUENAS to follow.
--- NOTE | 2024-10-12 10:52 | NURSING ---
gave daughter Luma an update on pt over phone-she also spoke with ilene from case management
--- NOTE | 2024-10-12 11:50 | PN.ORTHO_ITS ---
Subjective Subjective Patient is a 9-year-old female postop day 1 status post right intertrochanteric femoral IM nail with Dr. Tate 10/11/2024. Orthopedics were consulted after patient suffered right intertrochanteric proximal femur fracture. Pain control with Tylenol and oxycodone as needed. Limit narcotic use. Patient has been up with therapy. Walking with the assit of a walker. Weightbearing as tolerated. Afebrile, no chest pain, shortness of breath, negative calf pain/ erythema, and no other signs of DVT. Objective Data Objective Data Vital Signs: Vital Signs Temp Pulse Resp BP Pulse Ox O2 Del Method O2 Flow Rate 97.8 F 95 18 144/68 H 94 Nasal Cannula 4 10/12/24 11:32 10/12/24 11:32 10/12/24 11:32 10/12/24 11:32 10/12/24 11:32 10/12/24 11:32 10/12/24 10:45 Oxygen Flow Rate (L/min) 4 Oxygen Delivery Method Nasal Cannula Weight: 43.8 kg Body Mass Index (BMI) 17.1 Intake & Output: Intake and Output for Last 24 Hours 10/10/24 10/11/24 10/12/24 23:59 23:59 23:59 Intake Total 0 / 30 1080 / 1080 281 / 281 Output Total 1350 / 1350 600 / 600 Balance 0 / -370 -270 / -270 -319 / -319 Lab / Micro Data 10/12/24 05:28 10/12/24 05:28 Labs: Laboratory Results - last 24 hr 10/12/24 05:28: WBC 16.8 H, RBC 3.08 L, Hgb 9.8 L, Hct 29.6 L, MCV 96.1, MCH 31.8, MCHC 33.1, RDW Std Deviation 43.8, RDW Coeff of Katiana 12.7, Plt Count 203, MPV 9.3, Immature Gran % (Auto) 0.500, Neut % (Auto) 89.0 H, Lymph % (Auto) 2.4 L, Real % (Auto) 8.0, Eos % (Auto) 0.0, Baso % (Auto) 0.1, Absolute Neuts (auto) 15.0 H, Absolute Lymphs (auto) 0.41 L, Nucleated RBC % 0, Sodium 137, Potassium 4.0, Chloride 105, Carbon Dioxide 21.5, Anion Gap 11, BUN 19, Creatinine 0.97, E stim Creat Clear Calc 28.25 L, Est GFR (MDRD) Non-Af 56 L, BUN/Creatinine Ratio 19.5, Glucose 164 H, Calcium 8.7 Radiography Diagnostic Testing: Radiology Impression Hip X-Ray 10/11/24 14:30 IMPRESSION: Intraoperative fluoroscopic services provided for ORIF gamma nail reduction of the right intertrochanteric fracture. Reading Location: [facility] Physical Exam Narrative Patient is confused and altered.History of dementia. Patient resting comfortably in bed No signs of acute distress Satting well on room air Limb is warm to touch, Sensation intact throughout entire lower extremity, including saphenous, sural, superficial and deep peroneal, and tibial distribution. DP/PT pulses bounding. Dorsiflexion plantarflexion strength 5/5 Dressing clean dry intact Calf nontender to palpation, no erythema, no edema. Negative Homans Assessment & Plan Assessment/Plan (1) Closed intertrochanteric fracture of right hip: QUALIFIERS: Encounter type: initial encounter Fracture alignment: displaced Qualified Code(s): S72.141A - Displaced intertrochanteric fracture of right femur, initial encounter for closed fracture PLAN: Plan Postop day 1 open reduction internal fixation right hip IM nail. With Dr. Tate 10/11/2024 1. Will continue PT today. Weightbearing as tolerated 2. plan for discharge per primary. Orthopedically stable and okay for discharge when able. 3. Patient will follow up for post op appointment 2 weeks postoperatively. This will be arranged. 4. WBC 16 .8 acute reactive leukocytosis: secondary to pre operative decadron. no acute systemic signs of infection. will monitor, and likely self resolve. 5. H/H 9.8/29.6: post operavtive anemia secondary to acute blood loss intraoperatively. Patient is asymptomatic at this time. Interventions per primary 6. DVT prophylaxis : Lovenox x 4 weeks. 7. Pain control: patient instructed to take tylenol 500mg 2 tablets TID. and oxycodone 1-2 tablets every 4-6 hours only as needed for pain control. 8. ok to remove post op dressing. post op day 5 ortho to sign off at this time
--- NOTE | 2024-10-12 17:34 | NURSING ---
pt has been given mouth care, lip emmoliant and tonsil tip suction every 2 hrs this shift pt has also been turned q2hr while in bed f/c continues-clear tj pt has been NPO all day and cookie swallow is planned tomorow w/ speech
[2024-10-13] VITALS (10 sets, daily range): BP systolic 120–135; BP diastolic 46–70; PULSE 70–118; RESP 17–20; TEMP 36.6–37.1; O2SAT 91–96; BMI 16.3
[2024-10-13] MEDS: 0.9% Saline Lock 10 ML Syringe IV ×2 (01:09→21:17)
[2024-10-13] MEDS: HYDROmorphone Inj 0.2 MG/ML SYRINGE IV (01:09)
[2024-10-13] MEDS: 0.9% Normal Saline (1000mL) 1,000 ML 100 ML IV (05:14)
[2024-10-13 06:19] LABS: Hematocrit 24.7 % (37-47); Hemoglobin 8.4 g/dL (12.0-15.0); Immature Granulocytes Count 0.020 X10^3/uL (0.0-0.0); Mean Corp Hgb Conc 34.0 g/dL (32-36); Mean Corpuscular Volume 95.7 fL (81-99); Mean Platelet Vol. 9.2 fl (6.2-12.0); NRBC Flagged by Analyzer 0 % (0-5); POSITIVE MORPHOLOGY YES; Platelet Count 166 K/mm3 (150-450); RBC Distribution Width CV 13.2 % (11.6-14.6); RBC Distribution Width SD 45.5 fl (35.1-43.9); Red Blood Count 2.58 M/mm3 (4.2-5.4); White Blood Count 9.7 K/mm3 (4.4-11.0)
[2024-10-13 06:22] LABS: Differential Indicated SCAN CRITERIA MET
[2024-10-13 06:39] LABS: Anion Gap 10 (5-15); BUN 31 mg/dL (4-19); BUN/Creat Ratio 32.9 RATIO (10-20); Calcium,Total 8.6 mg/dL (7.6-11.0); Carbon Dioxide 25.1 mmol/L (21.0-32.0); Chloride 108 mmol/L (98-108); Estimated Creatinine Clearance 27.60 ml/min (50-250); Glucose 104 mg/dL (70-99); Potassium 3.8 mmol/L (3.3-5.1)
--- NOTE | 2024-10-13 08:41 | PCM.PN.HOSP ---
Subjective Subjective Remains n.p.o. due to swallowing challenges, planning for cookie swallow today. Objective Data Objective Data Vital Signs: Vital Signs Temp Pulse Resp BP Pulse Ox O2 Del Method O2 Flow Rate 98.5 F 76 18 134/53 H 93 Nasal Cannula 2 10/13/24 05:17 10/13/24 05:17 10/13/24 07:59 10/13/24 05:17 10/13/24 05:17 10/13/24 07:59 10/13/24 07:59 Oxygen Flow Rate (L/min) 2 Oxygen Delivery Method Nasal Cannula Weight: 92 lb 5.979 oz Body Mass Index (BMI) 16.3 Intake & Output: Intake and Output for Last 24 Hours 10/12/24 10/13/24 10/14/24 03:59 03:59 03:59 Intake Total 1150 / 1150 231 / 231 Output Total 950 / 950 1050 / 1050 Balance 200 / 200 -819 / -819 - Lab / Micro Data 10/13/24 05:13 10/13/24 05:13 Labs: Laboratory Results - last 24 hr 10/13/24 05:13: WBC 9.7, RBC 2.58 L, Hgb 8.4 L, Hct 24.7 L, MCV 95.7, MCH 32.6 H, MCHC 34.0, RDW Std Deviation 45.5 H, RDW Coeff of Katiana 13.2, Plt Count 166, MPV 9.2, Immature Gran % (Auto) 0.200, Neut % (Auto) 83.5 H, Lymph % (Auto) 6.9 L, [place] % (Auto) 9.3, Eos % (Auto) 0.0, Baso % (Auto) 0.1, Absolute Neuts (auto) 8.1 H, Absolute Lymphs (auto) 0.67 L, Nucleated RBC % 0, Platelet Estimate ADEQUATE, Sodium 143, Potassium 3.8, Chloride 108, Carbon Dioxide 25.1, Anion Gap 10, BUN 31 H, Creatinine 0.95, Estim Creat Clear Calc 27.60 L, Est GFR (MDRD) Non-Af 58 L, BUN/Creatinine Ratio 32.9 H, Glucose 104 H, Calcium 8.6 Physical Exam Narrative General: Alert, Oriented x1, Cooperative, No apparent distress HEENT: Atraumatic, PERRLA, EOMI, Normocephalic Oral: Moist Mucosa Neck: Supple, No JVD Lungs: Diminished, Normal air movement, No rhonchi, No wheeze, No rales Cardiovascular: Regular rate, Regular Rhythm, Normal S1, Normal S2, No murmurs Abdomen: Soft, Non Tender, Non-Distended, No Hepato-splenomegaly Extremities: No edema, Capillary Refill Less than 3 Seconds Skin: No rashes, No breakdown Musculoskeletal: Tenderness to palpation of right hip, dressing CDI Neurological: No focal neurological deficits, moves all extremities other than right lower extremity due to pain Psych/Mental Status: Flat Assessment & Plan Assessment/Plan (1) Closed intertrochanteric fracture of right hip: QUALIFIERS: Encounter type: initial encounter Fracture alignment: displaced Qualified Code(s): S72.141A - Displaced intertrochanteric fracture of right femur, initial encounter for closed fracture PLAN: Plan 1. Acute right femoral fracture due to mechanical fall status post repair 10/11/2024 ? Appreciate orthopedic surgery's assistance, plan for operative repair ? Continue with n.p.o. pending speech evaluation and cookie swallow today ? If she does not tolerate a p.o. status, she is not a candidate for PEG tube so we will have discussion with the family about hospice ? IV fluids ? Consult case management social work 2. Anxiety/depression/Alzheimer's dementia ? Stable ? Continue with her home medications when taking p.o. 3. Rheumatoid arthritis ? Stable ? Continue with hydroxychloroquine when taking p.o. 4. Chronic pancreatic insufficiency ? Stable ? Continue with Creon when taking p.o. DVT: Lovenox Charges/Coding Visit Charges Inpatient E&M: 24396 Subs Hosp L2
--- NOTE | 2024-10-13 09:32 | CASEMGMT ---
Addendum entered by Viktoria Meehan 10/13/24 10:42: TC to pt lata Phillips to make aware pt is accepted at [facility]. Left message as vm was received. Original Note: Pt nurse spoke with pt lata Phillips and received the following as top 3 choices for SNF. 1. [facility] 2. [facility] 3. [facility]. Requested dc pastoral assistant place referral to [facility].
--- NOTE | 2024-10-13 09:58 | CASEMGMT ---
Addendum entered by Tanisha Royal 10/14/24 10:27: Updates sent to Lilli with request to submit for precert. Tanisha Royal DC Planning Asst. Addendum entered by Tanisha Royal 10/13/24 10:14: [facility] has accepted. Precert needed if pt proceeding with snf placement. HERB DUENAS updated. Tanisha Royal DC Planniing Asst. Original Note: Discharge Planning Referral sent to Lilli at [facility]. Tanisha Royal DC Planning Asst.
[2024-10-13 13:18] LABS: Hematocrit 23.4 % (37-47); Hemoglobin 7.7 g/dL (12.0-15.0)
[2024-10-14] VITALS (10 sets, daily range): BP systolic 126–138; BP diastolic 49–72; PULSE 72–95; RESP 16–19; TEMP 36.3–37.2; O2SAT 89–98; BMI 16.2
--- NOTE | 2024-10-14 08:40 | SP.MBSS_ITS ---
Modified Barium Swallow Patient Information Study Date: 10/14/24 Study Time: 09:00 Direct Billable Minutes: 120 Total Minutes procedure & reportin Diagnosis: Esophageal dysphagia R13.14; Dementia F03.90 Referring Physician: Lisandro Gould Reason for Referral: Assess swallow function, assess risk for aspiration, and determine recommendations for any necessary dysphagia interventions. Medical History: Pt presented to [facility] ED 10/10/2024 with history of mechanical fall, walking, slipped, landed on R side w/ no LOC or head trauma but R thigh pain and R leg discomfort prompting ED evaluation. Plain film of the right femur with an acute right femoral fracture and probably additional fracture of the distal right femur, plain film of the right hip and pelvis with similarly noted acute fracture of the right femur through the intertrochanteric line. Pt admitted to [facility] and orthopedics consulted. Pt underwent right intertrochanteric femoral IM nail with Dr. Tate 10/11/2024. ST consulted after surgery due to concerns for dysphagia. BSE 10/12/2024 revealed poor cognitive status and recommended strict NPO. Pt re-evaluated for dysphagia at bedside 10/13/2024 and was still recommended NPO. Today, she was more alert and had improved attention to and tolerance of po trials. [employer] recommended MBSS prior to diet advancement due to coughing and throat clearing w/ liquids. ?Medical History Rheumatoid arthritis GERD (gastroesophageal reflux disease) History of DVT (deep vein thrombosis) Hyperlipidemia Alzheimer's dementia Chronic kidney disease (CKD), stage III (moderate) Irritable bowel Hiatal hernia Wears glasses Wears dentures History of leukemia Easy bruising Non-smoker Family history of malignant neoplasm of colon in father Esophageal dysphagia Current Diet Ordered: Strict NPO Dentition: Natural Teeth, Upper Dentures (Not present) and Missing Teeth Mental Status: Impaired (Dementia, difficulty following some simple commands (e.g. swallow again, dry swallow)) Respiratory Status: Oxygenating on Room Air Penetration-Aspiration Scale Penetration-Aspiration Scale: OBJECTIVE ASSESSMENT OF SWALLOW FUNCTION (QUANTITATIVE ? PER TRIAL): PENETRATION / ASPIRATION SCALE (ALEGRIA): 1 = does not enter airway 2 = enters airway/above vocal folds/ejected 3 = enters airway/above vocal folds/not ejected 4 = enters airway/contacts vocal folds/ejected 5 = enters airway/contacts vocal folds/not ejected 6 = enters airway/below vocal folds/ejected 7 = enters airway/below vocal folds/not ejected despite effort 8 = enters airway/below vocal folds/no effort VIDEOFLOROSCOPIC SCALE SCORE (ALEGRIA): Grade I = aspiration of material that has penetrated into the laryngeal vestibule, intact cough reflex Grade II = aspiration < 10 % of the bolus, intact cough reflex Grade III = aspiration of < 10 % of the bolus, reduced cough reflex or aspiration of > 10 % of the bolus, intact cough reflex Grade IV = aspiration of > 10 % of the bolus, reduced cough reflex Penetration-Aspiration Scale Score Thin Liquid via teaspoon: Result: 5= enters airways/contacts vocal folds/not ejected Thin Liquid via teaspoon Trial 2: Result: 5= enters airways/contacts vocal folds/not ejected Thin Liquid via small single sip: cup: Result: 5= enters airways/contacts vocal folds/not ejected [place] Thick Liquid via teaspoon: Result: 5= enters airways/contacts vocal folds/not ejected (reflexive cough cleared a majority of penetrated contrast) [place] Thick Liquid via single sip: straw: Result: 2= enter airway/above vocal folds/ejected Pudding via teaspoon: Result: 1= does not enter airway Comment: Esophageal screen - Esophageal retention, primarily in the middle and lower esophagus. [place] Thick Liquid via small single sip: cup: Result: 7= enters airways/below vocal folds/not ejected despite effort Comment: Reflexive cough cleared a majority of penetrated and aspirated contrast from just below the vocal folds and the laryngeal vestibule. Trace barium remained on the vocal folds. [place] Thick Liquid via single sip: straw Trial 2: Result: 1= does not enter airway [place] Thick Liquid via single sip: straw Trial 3: Result: 2= enter airway/above vocal folds/ejected Comment: Post prandial laryngeal penetration w/ reflexive throat clearing, which fully cleared penetrated contrast. Oral Phase Labial Seal: Interlabial escape, no progression to anterior lip Tongue Control During Bolus Hold: Posterior escape of greater than half of bolus Bolus Transport/Lingual Motion: Repetitive/disorganized tongue motion Oral Residue: Majority of bolus remaining (~50% of pudding) Pharyngeal Phase Initiation of Pharyngeal Swallow: Bolus head in pyriforms Soft Palate Elevation: Trace column of contrast/air between soft palate and pharyngeal wall Laryngeal Elevation: Partial superior movement thyroid cart/partial apprx aryt- epig petiole Anterior Hyoid Excursion: Partial anterior movement Epiglottic Movement: Partial inversion Laryngeal Vestibule Closure at Height of Swallow: Incomplete; narrow column of air/contrast in laryngeal vestibule Pharyngeal Stripping Wave: Present - diminished Pharyngoesophageal Segment Opening: Parital distension and partial duration; parital obstruction of flow Tongue Base Retraction: Wide column of contrast between tongue base & post. pharyngeal wall Pharyngeal Residue: Majority of contrast within or on pharyngeal structures (~50% of pudding remained in the pharynx) Esophageal Phase Esophageal Clearance: Esophageal retention Diagnosis/Impression Diagnosis: Moderate-severe oropharyngeal dysphagia R13.12; Esophageal dysphagia R13.14 MBS Impressions: The oral phase is primarily marked by... -Poor lingual control, posterior loss of >1/2 of liquid trials by cup to the laryngeal vestibule and pyriform sinuses prior swallow onset. -Lingual pumping for A-P transport. -Moderate oral residue of pudding, moderate verbal cues required to swallow a second time. -Did not assess cookie due to fear for choking. The pharyngeal phase is primarily marked by... -Delayed swallow onset. -Poor pharyngeal motility w/ poor TB retraction and pharyngeal stripping wave w/ moderate pharyngeal residue of pudding. -Decreased airway closure due to decreased anterior hyoid excursion and laryngeal elevation. -Deep laryngeal penetration of thin liquids by tsp, thin liquids by cup, and mildly thick liquids by tsp. Reflexive cough ejected mildly thick liquids by tsp. Mildly thick liquids by cup resulted in aspiration just below the vocal folds; however, reflexive cough did mostly clear contrast from below the vocal folds and from the laryngeal vestibule. Trace residues remained on the vocal folds. The esophageal phase is primarily marked by... -Minimal retention of barium in the UES/upper esophagus. -Retention of pudding in the middle and lower esophagus. Recommendations Diet: Puree Textures (MOIST PUREES ONLY, do not give the patient sticky/adhesive textures) and Mildly Thick Liquids Comment: Medications crushed in applesauce Compensatory Strategies: Small Bites, Small Sips, Sips by straw only, Slow Rate, Alternate bites/solids and sips/liquids (1:1 Ratio) and Sitting upright (During and 60min after meal) Supervision: 1:1 Direct Supervision (Direct staff supervision and feeding assistance) Recommend Repeat Modified Barium Swallow: Yes (Consider repeat MBSS after 3-5 weeks of oropharyngeal strengthening to re-assess swallow function and consider pt for diet advancement) Need for Skilled Speech Therapy Services: Yes Comment: Continue dysphagia therapy during acute stay and at the next level of care... -Train the staff and patient in use of strategies to decrease risk for aspiration. -Ongoing assessment of diet tolerance of recommended textures. Monitor respiratory status closely. Consider downgrade to full mildly thick liquid diet (via straw) if poor diet tolerance w/ purees. -Train the staff and patient in a thorough oral care routine for the patient. -If pt is able to follow commands, train the patient in oropharyngeal exercise program to improve bolus control, pharyngeal motility, and airway closure (lingual resistance, effortful swallows, CTAR). Recommended Referrals: GI Consult (Follow w/ OP GI as recommended for management of esophageal dysphagia. Pt is not appropriate for inpatient intervention at this time per Dr. Gould.) Education Completed: 1. Described result of evaluation. and 7. Pt requires further education on strategies & risks. Status Active ST Patient: Active Contact Information [facility]:: Antonieta Miller M.A. CCC-TRUCK DR[employer]? Speech-Language Pathologist?? [facility] [address] [place] [address]? [email or web address]?? [phone]
--- NOTE | 2024-10-14 09:04 | PCM.PN.HOSP ---
Subjective Subjective More alert today, we will trial her on another speech evaluation and possible cookie swallow Objective Data Objective Data Vital Signs: Vital Signs Temp Pulse Resp BP Pulse Ox O2 Del Method O2 Flow Rate 98.3 F 95 16 126/56 H 94 Room Air 2 10/14/24 08:25 10/14/24 08:25 10/14/24 08:25 10/14/24 08:25 10/14/24 08:25 10/14/24 08:25 10/14/24 08:01 Oxygen Flow Rate (L/min) 2 Oxygen Delivery Method Room Air Weight: 91 lb 14.924 oz Body Mass Index (BMI) 16.2 Intake & Output: Intake and Output for Last 24 Hours 10/13/24 10/14/24 10/15/24 03:59 03:59 03:59 Intake Total 231 / 231 2353.25 / 2353.25 Output Total 1050 / 1050 900 / 900 150 / 150 Balance -819 / -819 1453.25 / 1453.25 -150 / -150 Lab / Micro Data 10/13/24 21:45 10/13/24 05:13 Labs: Laboratory Results - last 24 hr 10/13/24 13:02: Hgb 7.7 L, Hct 23.4 L 10/13/24 21:45: Hgb 9.1 L, Hct 27.6 L Physical Exam Narrative General: Alert, Oriented x1, Cooperative, No apparent distress HEENT: Atraumatic, PERRLA, EOMI, Normocephalic Oral: Moist Mucosa Neck: Supple, No JVD Lungs: Diminished, Normal air movement, No rhonchi, No wheeze, No rales Cardiovascular: Regular rate, Regular Rhythm, Normal S1, Normal S2, No murmurs Abdomen: Soft, Non Tender, Non-Distended, No Hepato-splenomegaly Extremities: No edema, Capillary Refill Less than 3 Seconds Skin: No rashes, No breakdown Musculoskeletal: Tenderness to palpation of right hip, dressing CDI Neurological: No focal neurological deficits, moves all extremities other than right lower extremity due to pain Psych/Mental Status: Normal affect Assessment & Plan Assessment/Plan (1) Closed intertrochanteric fracture of right hip: QUALIFIERS: Encounter type: initial encounter Fracture alignment: displaced Qualified Code(s): S72.141A - Displaced intertrochanteric fracture of right femur, initial encounter for closed fracture PLAN: Plan 1. Acute right femoral fracture due to mechanical fall status post repair 10/11/2024 ? Appreciate orthopedic surgery's assistance, plan for operative repair ? Continue with n.p.o. pending speech evaluation and cookie swallow today ? Will have another p.o. trial today with speech therapy and potentially cookie swallow ? Consult case management social work 2. Anxiety/depression/Alzheimer's dementia ? Stable ? Continue with her home medications when taking p.o. 3. Rheumatoid arthritis ? Stable ? Continue with hydroxychloroquine when taking p.o. 4. Chronic pancreatic insufficiency ? Stable ? Continue with Creon when taking p.o. DVT: Lovenox Charges/Coding Visit Charges Inpatient E&M: 79925 Subs Hosp L2
[2024-10-14] MEDS: Senna/Docusate Sodium 1 Tablet 2 TABLET PO ×2 (10:33→21:25)
[2024-10-14] MEDS: Creon 24,000 unit DR Capsule 1 CAP PO ×2 (10:34→16:09)
[2024-10-14] MEDS: Creon 12,000 unit DR CapSULE 1 CAP PO ×2 (10:34→16:10)
[2024-10-14] MEDS: 0.9% Saline Lock 10 ML Syringe IV (21:27)
[2024-10-15] VITALS (10 sets, daily range): BP systolic 104–154; BP diastolic 39–92; PULSE 65–91; RESP 16–18; TEMP 36.3–37.1; O2SAT 95–98; BMI 16.4
--- NOTE | 2024-10-15 04:01 | ED.RN ---
Pt was given Tylenol with apple sauce at 3 in the morning which she tolerated well. She asked for water which she was given nectar thick water using a straw and she started choking. Applied 2 liters of oxygen and she is now on continuous pulse ox.
[2024-10-15 06:06] LABS: Hematocrit 21.1 % (37-47); Hemoglobin 7.1 g/dL (12.0-15.0); Immature Granulocytes Count 0.070 X10^3/uL (0.0-0.0); Mean Corp Hgb Conc 33.6 g/dL (32-36); Mean Corpuscular Volume 96.3 fL (81-99); Mean Platelet Vol. 9.3 fl (6.2-12.0); NRBC Flagged by Analyzer 0 % (0-5); POSITIVE DIFFERENTIAL YES; Platelet Count 192 K/mm3 (150-450); RBC Distribution Width CV 12.8 % (11.6-14.6); RBC Distribution Width SD 44.6 fl (35.1-43.9); Red Blood Count 2.19 M/mm3 (4.2-5.4); White Blood Count 7.4 K/mm3 (4.4-11.0)
[2024-10-15 06:39] LABS: Anion Gap 11 (5-15); BUN 28 mg/dL (4-19); BUN/Creat Ratio 44.9 RATIO (10-20); Calcium,Total 8.2 mg/dL (7.6-11.0); Carbon Dioxide 23.1 mmol/L (21.0-32.0); Chloride 109 mmol/L (98-108); Estimated Creatinine Clearance 32.61 ml/min (50-250); Glucose 127 mg/dL (70-99); Potassium 3.2 mmol/L (3.3-5.1)
[2024-10-15] MEDS: Senna/Docusate Sodium 1 Tablet 2 TABLET PO (09:25)
--- NOTE | 2024-10-15 10:07 | PCM.PN.HOSP ---
Subjective Subjective No issues overnight, she did have an episode of choking on some nectar thick liquids early this morning speech will reeval Objective Data Objective Data Vital Signs: Vital Signs Temp Pulse Resp BP Pulse Ox O2 Del Method O2 Flow Rate 97.6 F L 74 18 104/39 L 96 Room Air 2 10/15/24 08:00 10/15/24 08:00 10/15/24 08:00 10/15/24 08:00 10/15/24 08:00 10/15/24 08:05 10/14/24 08:01 Oxygen Flow Rate (L/min) 2 Oxygen Delivery Method Room Air Weight: 92 lb 9.506 oz Body Mass Index (BMI) 16.4 Intake & Output: Intake and Output for Last 24 Hours 10/14/24 10/15/24 10/16/24 03:59 03:59 03:59 Intake Total 2353.25 / 2353.25 300 / 300 Output Total 900 / 900 450 / 450 210 / 210 Balance 1453.25 / 1453.25 -150 / -150 -210 / -210 Lab / Micro Data 10/15/24 05:13 10/15/24 05:13 Labs: Laboratory Results - last 24 hr 10/15/24 05:13: WBC 7.4, RBC 2.19 L, Hgb 7.1 L, Hct 21.1 L, MCV 96.3, MCH 32.4 H, MCHC 33.6, RDW Std Deviation 44.6 H, RDW Coeff of Katiana 12.8, Plt Count 192, MPV 9.3, Immature Gran % (Auto) 0.900, Neut % (Auto) 82.7 H, Lymph % (Auto) 6.7 L, [place] % (Auto) 9.3, Eos % (Auto) 0.3, Baso % (Auto) 0.1, Absolute Neuts (auto) 6.1, Absolute Lymphs (auto) 0.50 L, Nucleated RBC % 0, Sodium 143, Potassium 3.2 L, Chloride 109 H, Carbon Dioxide 23.1, Anion Gap 11, BUN 28 H, Creatinine 0.62 L, Estim Creat Clear Calc 32.61 L, Est GFR (MDRD) Non-Af 86, BUN/Creatinine Ratio 44.9 H, Glucose 127 H, Calcium 8.2 Physical Exam Narrative General: Alert, Oriented x1, Cooperative, No apparent distress HEENT: Atraumatic, PERRLA, EOMI, Normocephalic Oral: Moist Mucosa Neck: Supple, No JVD Lungs: Diminished, Normal air movement, No rhonchi, No wheeze, No rales Cardiovascular: Regular rate, Regular Rhythm, Normal S1, Normal S2, No murmurs Abdomen: Soft, Non Tender, Non-Distended, No Hepato-splenomegaly Extremities: No edema, Capillary Refill Less than 3 Seconds Skin: No rashes, No breakdown Musculoskeletal: Tenderness to palpation of right hip, dressing CDI Neurological: No focal neurological deficits, moves all extremities other than right lower extremity due to pain Psych/Mental Status: Normal affect Assessment & Plan Assessment/Plan (1) Closed intertrochanteric fracture of right hip: QUALIFIERS: Encounter type: initial encounter Fracture alignment: displaced Qualified Code(s): S72.141A - Displaced intertrochanteric fracture of right femur, initial encounter for closed fracture PLAN: Plan 1. Acute right femoral fracture due to mechanical fall status post repair 10/11/2024 with postop anemia ? Appreciate orthopedic surgery's assistance ? Currently on mildly thick liquids and pur?es with direct supervision ? Consult case management social work ? Postop anemia is down to 7.1, will transfuse 1 unit ? Pending pre-CERT for SNF placement 2. Anxiety/depression/Alzheimer's dementia ? Stable ? Continue with her home medications when taking p.o. 3. Rheumatoid arthritis ? Stable ? Continue with hydroxychloroquine when taking p.o. 4. Chronic pancreatic insufficiency ? Stable ? Continue with Creon when taking p.o. DVT: Lovenox Charges/Coding Visit Charges Inpatient E&M: 52891 Subs Hosp L2
--- NOTE | 2024-10-15 10:43 | CASEMGMT ---
Lilli has obtained auth to admit. HERB CM updated. Tanisha Royal DC Planning Asst.
--- NOTE | 2024-10-15 12:50 | CASEMGMT ---
Social Work- SW met with pt and dtr, as pt dtr asked to speak with SW. Pt dtr questioned if pt could d/c to TCU. SW educated that precert had been obtained and TCU does not have any beds at this time. Pt dtr agreeable to [facility]. SW advised that plan will be for pt to receive blood then likely d/c. SW to keep pt dtr updated as we hear back regarding d/c. ANTIONETTE Tijerina
--- NOTE | 2024-10-15 13:19 | PCM.TXEXTCAR ---
Diet Diet Order/Speech Therapy: INPATIENT Hospital Diet / Speech Therapy Order(s) 10/14/24 10:11 Diet: Regular - General Food consistency:: Pureed Liquid Consistency:: [place]/Mildly Thick Diet Comments: hard time clearing secreations Speech Therapy Comments: MOIST PUREES ONLY, LIQUID BY STRAW ONLY, DIRECT STAFF SUP Routine Orders/Code Status Routine Lab Work: CBC and BMP Code Status: DNRCC DC O2, CPAP, BIPAP needs Home O2 Discharge instructions: No Wound(s) RT HIP: Wound Type: Surgical Incision Therapies Weight Bearing: Weight bearing as tolerated Extremity Affected:: Right Lower Physical Therapy: Eval and Treat Occupational Therapy: Eval and Treat Speech Therapy: Eval and Treat Problem/Diagnosis (1) Closed intertrochanteric fracture of right hip: Status: Acute Code(s): S72.141A - Displaced intertrochanteric fracture of right femur, initial encounter for closed fracture Plan 1. Acute right femoral fracture due to mechanical fall status post repair 10/11/2024 with postop anemia ? Appreciate orthopedic surgery's assistance ? Currently on mildly thick liquids and pur?es with direct supervision ? Consult case management social work ? Postop anemia is down to 7.1, will transfuse 1 unit ? Pending pre-CERT for SNF placement 2. Anxiety/depression/Alzheimer's dementia ? Stable ? Continue with her home medications when taking p.o. 3. Rheumatoid arthritis ? Stable ? Continue with hydroxychloroquine when taking p.o. 4. Chronic pancreatic insufficiency ? Stable ? Continue with Creon when taking p.o. DVT: Lovenox Allergies/Procedures Done in Hospital Allergies aspirin Allergy (Severe, Verified 10/10/24 17:10) Hives ibuprofen Allergy (Verified 10/10/24 17:10) Hives donepezil Adverse Reaction (Verified 10/10/24 17:10) Nausea Penicillins Adverse Reaction (Verified 10/10/24 17:10) I PASS OUT I PASS OUT Procedures: None Type of Care/Length of Stay Estimated LOS: Convalescent Care Less Than 30 days Type of Care Needed: Skilled Rehab Potential: Poor Prognosis: Poor Additional Orders/Day of Discharge Day of Discharge: 10/15/24 Dietary and Speech Recommendations Dietitian Recommendations/Changes: Recommend advance therapeutic diet as tolerated to liberalized regular with consistency/texture as per FNPS. Add Ensure plus HP as able to advance PO diet. Enteral nutrition support if unsafe for PO diet. Re-assess for malnutrition as diet advanced and PO adequacy established. Discharge Plan Admission Admit Date/Time: 10/10/24 21:15 Attending Provider: Lisandro Gould Primary Care Provider: Bairon Engle Consulting Providers: Sofia Christian; Rodrigo Mcqueen Discharge Orders/Prescriptions Prescriptions: New enoxaparin 30 mg/0.3 mL Syringe 30 mg subcut DAILY@0600 28 Days Qty: 0 0RF ferrous gluconate 324 mg (37.5 mg iron) tablet 324 mg PO DAILY Qty: 30 0RF Continued hydroxychloroquine 200 MG tablet 200 mg PO DAILYCM nimdptspybsn-qadtnovh-zkzpgs Tablet 1 tab PO DAILY rivastigmine tartrate 1.5 mg Capsule 3 mg PO QHS biotin 10,000 mcg Capsule 10,000 mcg PO DAILY rivastigmine tartrate 1.5 mg capsule 1.5 mg PO DAILY Zenpep 40,000-126,000- 168,000 unit capsule,delayed release(DR/EC) 1 cap PO TID Qty: 90 3RF Rx Instructions: administer with meals and/or snacks megestrol 40 mg tablet 40 mg PO TID Qty: 90 2RF Referrals / Follow Up: Bairon Engle MD [Primary Care Provider] - Disposition Disposition (needs filled in before D/C Order can be placed): Shelter Facility (1) Closed intertrochanteric fracture of right hip Qualifiers: Encounter type: initial encounter Fracture alignment: displaced Qualified Code(s): S72.141A - Displaced intertrochanteric fracture of right femur, initial encounter for closed fracture
--- NOTE | 2024-10-15 14:15 | CASEMGMT ---
Patient has order for discharge. Patient to discharge to [facility] under skilled LOC. 7000 completed. RN CM updated Discharge Dependency Program Director to complete discharge.
--- NOTE | 2024-10-15 14:33 | PHA.DC.MR.R ---
Pharmacy [facility] Med Reconciliation Pharmacy Service has performed discharge medication reconciliation for this patient. The patient's discharge medication list was reviewed for discrepancies and discrepancies were resolved. Medications at Discharge Home Medications hydroxychloroquine 200 mg tablet 200 mg PO DAILYCM arthritis 04/24/19 biotin 10,000 mcg capsule 10,000 mcg PO DAILY hair growth 04/24/22 zpaqkxoqicek-phimhskl-hfxops tablet 1 tab PO DAILY 04/24/22 rivastigmine tartrate 1.5 mg capsule 3 mg PO QHS memory 04/24/22 avnbnt-vcanxzsr-jksgoyu 40,000-126,000-168,000 unit capsule, delay rel (Zenpep) 1 cap PO TID #90 caps 02/12/24 megestrol 40 mg tablet 40 mg PO TID #90 tabs 05/24/24 rivastigmine tartrate 1.5 mg capsule 1.5 mg PO DAILY 10/10/24 enoxaparin 30 mg/0.3 mL subcutaneous syringe 30 mg (0.3 mL) subcut DAILY@0600 28 days #0 mL 10/15/24 ferrous gluconate 324 mg (37.5 mg iron) tablet 324 mg PO DAILY #30 tabs 10/15/24
--- NOTE | 2024-10-15 14:36 | CASEMGMT ---
Discharge Planning Discharge orders, signed med list, and transport time sent to [facility]. Physicians will transport pt by cot at 7:45p. Nursing, SW, and pt updated. VM left for pts daughter/POA (Jacqueline). Tanisha Royal DC Planning Asst.
--- NOTE | 2024-10-15 16:20 | DS.PCM_ITS ---
Providers Date of Admission: 10/10/24 Primary Care Physician: Dr. Bairon Engle MD Consultations 10/10/24 21:52 Consult: Orthopedics Routine Consulting Provider: Rodrigo Mcqueen Reason for Consult: Fall, R hip/femur fx EMERGENT Consult: No MD Notified: Yes Date Notified: 10/10/24 Time Notified: 21:17 Method of Notification: ED Physician Initiated Reason For Visit: FALL, R HIP FRACTURE/FEMUR FX Diagnosis Discharge Diagnosis (1) Closed intertrochanteric fracture of right hip: Status: Acute Code(s): S72.141A - Displaced intertrochanteric fracture of right femur, initial encounter for closed fracture Qualifiers: Encounter type: initial encounter Fracture alignment: displaced Q ualified Code(s): S72.141A - Displaced intertrochanteric fracture of right femur, initial encounter for closed fracture Medications at Discharge Home Medications hydroxychloroquine 200 mg tablet 200 mg PO DAILYCM arthritis 04/24/19 biotin 10,000 mcg capsule 10,000 mcg PO DAILY hair growth 04/24/22 xzveqejbmvos-vtqchqtt-jtsddg tablet 1 tab PO DAILY 04/24/22 rivastigmine tartrate 1.5 mg capsule 3 mg PO QHS memory 04/24/22 bhpwro-fxnlndse-vhziych 40,000-126,000-168,000 unit capsule, delay rel (Zenpep) 1 cap PO TID #90 caps 02/12/24 megestrol 40 mg tablet 40 mg PO TID #90 tabs 05/24/24 rivastigmine tartrate 1.5 mg capsule 1.5 mg PO DAILY 10/10/24 enoxaparin 30 mg/0.3 mL subcutaneous syringe 30 mg (0.3 mL) subcut DAILY@0600 28 days #0 mL 10/15/24 ferrous gluconate 324 mg (37.5 mg iron) tablet 324 mg PO DAILY #30 tabs 10/15/24 Hospital Course Operations - ( Right femur cephalomedullary nailing) Procedures None Summary of Care Provided Minutes Spent on Discharge: 35 Hospital Course: Per HPI: The patient is an 89 y/o F w/ PMHx: CKD stage III per previous GFR trending, IBS, Hx VTE, HTN, HLD, GERD s/p [place], Esophageal dysphagia, Rheumatoid arthritis, Pancreatic exocrine insufficiency, Alzheimer's dementia with unclear extent with unclear behavioral disturbance history with also potentially related anorexia who presents to the [facility] ED on 10/10/2024 with history of mechanical fall noted that she was walking and slipped landing on her right side with no loss of consciousness or head trauma but had onset of significant right thigh pain and a heavy sensation to the right leg with discomfort severely worsened with any movement with no associated paresthesias but given ongoing discomfort prompted ED evaluation. Patient in the ED notes her pain currently 6-7 out of 10 in severity. Family notes that over the last several months she has been more agitated intermittently and they had been planning to follow-up with neurology to have patient placed on additional medications. Workup in the ED included T98.1, heart rate 77, BP 160/83, respiratory rate 16, 99% on room air with most recent repeat vitals heart rate 82, BP 140/84, respiratory rate 20, 96% on room air, CBC with WC 5.2, he 112.7, platelet 230 without marked shift, BMP with BUN/creatinine 20/0.87, GFR 65, glucose 179, plain film of the right femur with an acute right femoral fracture and probably additional fracture of the distal right femur, plain film of the right hip and pelvis with similarly noted acute fracture of the right femur through the intertrochanteric line, chest x-ray no acute cardiopulmonary findings, EKG with SR with RBBB without acute evidence of ischemia. In the ED patient ministered morphine 4 mg IV x 2 as well as Zofran 4 mg IV x 1. ED discussed case with Orthopedic surgery Dr. Mcqueen. Hospital Course: 1. Acute right femoral neck fracture due to mechanical fall status post repair 10/11/2024 with postoperative anemia requiring transfusion on 10/15/2024?8 9-year-old female with dementia presented to the hospital after mechanical fall with right femur fracture. She was taken to surgery on 10/11/2024 and had a little bit of a complicated postoperative course with dysphagia. At 1 point her dysphagia was so severe that we could not proceed with a cookie swallow. Though she did become more alert and was able to do a cookie swallow and was placed on thickened liquids and pur?ed diet with direct supervision. Hemoglobin testing has been variable however today her hemoglobin was 7.1. The only source of bleeding is likely her operative site with hemodilution therefore I transfused her 1 unit of blood today. Given her age I am reticent to keep her in the hospital much longer as this will impact her physical therapy and her recovery. I discussed the plan for discharge to care home today with family and they expressed understanding of the risks and benefits of going to the care home and would like to go today, they understand that with her anemia she may need to be transfused again. I do recommend outpatient monitoring of her CBC and management of any anemia. She will unfortunately have to be on Lovenox for DVT prophylaxis per orthopedic surgery's recommendations. Given her age and her blood loss I did supplement with iron. 2. Anxiety, depression, Alzheimer's dementia, rheumatoid arthritis, chronic pancreatic insufficiency are all chronic medical conditions which complicate her care. Her home medications were continued where appropriate Physical Exam Narrative General: Alert, Oriented x1, Cooperative, No apparent distress HEENT: Atraumatic, PERRLA, EOMI, Normocephalic Oral: Moist Mucosa Neck: Supple, No JVD Lungs: Diminished, Normal air movement, No rhonchi, No wheeze, No rales Cardiovascular: Regular rate, Regular Rhythm, Normal S1, Normal S2, No murmurs Abdomen: Soft, Non Tender, Non-Distended, No Hepato-splenomegaly Extremities: No edema, Capillary Refill Less than 3 Seconds Skin: No rashes, No breakdown Musculoskeletal: Tenderness to palpation of right hip, dressing CDI Neurological: No focal neurological deficits, moves all extremities other than right lower extremity due to pain Psych/Mental Status: Normal affect Weight / BMI Weight Weight: 92 lb 9.506 oz Body Mass Index (BMI) 16.4 ABG / Lab / Microbiology Data 10/15/24 05:13 10/15/24 05:13 Laboratory: Laboratory Results - last 24 hr 10/15/24 11:40: Blood Type A POSITIVE, Antibody Screen NEGATIVE, Crossmatch See Detail D/C Instructions DC O2, CPAP, BIPAP Needs Home O2 Discharge instructions: No Meaningful Use Info Meaningful Use Meaningful Use Diagnoses (Choose all that apply): None applicable Discharge Plan Admission Admit Date/Time: 10/10/24 21:15 Attending Provider: Lisandro Gould Primary Care Provider: Bairon Engle Consulting Providers: Sofia Christian; Rodrigo Mcqueen Discharge Orders/Prescriptions Prescriptions: New enoxaparin 30 mg/0.3 mL Syringe 30 mg subcut DAILY@0600 28 Days Qty: 0 0RF ferrous gluconate 324 mg (37.5 mg iron) tablet 324 mg PO DAILY Qty: 30 0RF Continued hydroxychloroquine 200 MG tablet 200 mg PO DAILYCM tpvacvfmxihj-qnpxrmjk-pyvyop Tablet 1 tab PO DAILY rivastigmine tartrate 1.5 mg Capsule 3 mg PO QHS biotin 10,000 mcg Capsule 10,000 mcg PO DAILY rivastigmine tartrate 1.5 mg capsule 1.5 mg PO DAILY Zenpep 40,000-126,000- 168,000 unit capsule,delayed release(DR/EC) 1 cap PO TID Qty: 90 3RF Rx Instructions: administer with meals and/or snacks megestrol 40 mg tablet 40 mg PO TID Qty: 90 2RF Referrals / Follow Up: Bairon Engle MD [Primary Care Provider] - Disposition Disposition (needs filled in before D/C Order can be placed): [facility] Facility Charges/Coding Visit Charges Inpatient E&M: 42463 Disch Hosp >30min
--- NOTE | 2024-10-15 17:23 | NURSING ---
This RN attempted to call [facility] twice to give report. Pt was supposed to be picked up by physician's ambulance at 194, but changed to [phone].
== END 2024-10-15 18:14 | disposition skilled nursing facility (03) | DRG 482 ==
LOC: ED 20:49 → MS3 21:43
PROVIDERS: Student in an Organized Health Care Education/Training Program; Admitting Provider Family Medicine; Emergency Provider Emergency Medicine; PCP Family Medicine; Visit Provider Family Medicine
PROC: 0QS636Z Reposition Right Upper Femur with Intramedullary Internal Fixation Device, Percutaneous Approach (ICD-10-PCS; CPT 27245; principal; 2024-10-11 13:30)
DX: S72.141A Displaced intertrochanteric fracture of right femur, initial encounter for closed fracture (principal); K86.81 Exocrine pancreatic insufficiency; Z66 Do not resuscitate; N18.30 Chronic kidney disease, stage 3 unspecified; G30.9 Alzheimer's disease, unspecified; M06.9 Rheumatoid arthritis, unspecified; F32.A Depression, unspecified; E78.00 Pure hypercholesterolemia, unspecified; F41.9 Anxiety disorder, unspecified; K21.9 Gastro-esophageal reflux disease without esophagitis; W01.0XXA Fall on same level from slipping, tripping and stumbling without subsequent striking against object, initial encounter; R13.10 Dysphagia, unspecified; R53.81 Other malaise; R63.6 Underweight; Z79.899 Other long term (current) drug therapy; Z86.718 Personal history of other venous thrombosis and embolism
CPT/HCPCS: 36415; 51702; 71045; 72170; 73502; 73552; 74230; 76000; 80048; 80053; 81001; 85014; 85018; 85025; 85610; 85730; 86850; 86900; 86901; 92526; 92610; 92611; 93005; 97116; 97162; 97166; 97530; 97535; 97537; 99285; C1713; C1776; P9016; A4216; J2405